=== PATIENT | female | born 1955 | race Caucasian/White ===

== ENCOUNTER 2016-10-06 16:04 | Outpatient (CLI) | payer MEDICARE | END 2016-10-06 16:05 | disposition home or self-care (01) | DX: E21.3 Hyperparathyroidism, unspecified (principal) ==

== ENCOUNTER 2017-02-26 10:44 | Outpatient (CLI) | payer MEDICARE ==
--- NOTE | 2017-02-27 17:54 | Mammography Report ---
DIGITAL SCREENING MAMMOGRAM: 02/26/2017 CLINICAL INDICATION: A 61-year-old with history of benign left breast biopsy for screening. COMPARISON: 06/2012, 08/2008, 11/2007. TECHNIQUE: Routine CC and MLO projections were obtained of the breasts. The breasts again demonstrate heterogeneously dense fibroglandular parenchyma bilaterally. Punctate, typically benign calcifications are present. In the right inner posterior breast, there is a possib le developing density. Further evaluation with spot compression views on possible ultrasound is greg mmended. No mammographically suspicious findings are appreciated in the left breast. IMPRESSION: INCOMPLETE EXAMINATION. RECOMMENDATION: ADDITIONAL EVALUATION OF THE RIGHT BREAST ABOVE. BIRADS CATEGORY: 0, INCOMPLETE. STANDARD QUALIFYING STATEMENTS 1. This examination was reviewed with the aid of Computed-Aided Detection (CAD). 2. A negative or benign imaging report should not delay biopsy if clinically suspicious findings are present. Consider surgical consultation if warranted. More than 5% of cancers are not identified b y imaging. 3. Dense breasts may obscure an underlying neoplasm. JOB #: [id number] EXT JOB #:[id number]
== END 2017-02-26 10:45 | disposition home or self-care (01) ==
LOC: DI.S 10:44
PROVIDERS: ATTEND Internal Medicine
DX: Z12.31 Encounter for screening mammogram for malignant neoplasm of breast (principal); R92.8 Other abnormal and inconclusive findings on diagnostic imaging of breast
CPT/HCPCS: 77067

== ENCOUNTER 2017-03-19 11:15 | Outpatient (CLI) | payer MEDICARE ==
--- NOTE | 2017-03-19 13:03 | Mammography Report ---
DIGITAL DIAGNOSTIC RIGHT MAMMOGRAM: 03/19/2017 CLINICAL INDICATION: Possible developing density. TECHNIQUE: Right true lateral and spot compression views. COMPARISON: 02/26/2017, 06/24/2012, 08/11/2008, 12/09/2007, 11/14/2007 FINDINGS: The right breast again demonstrates heterogeneously dense fibroglandular parenchyma. The density in question, in the right inner posterior breast dissipates evenly on additional compression. No underlying mas lesion or region of architectural distortion is appreciated. IMPRESSION: NEGATIVE EXAMINATION. RECOMMENDATION: Routine annual screening unless otherwise clinically indicated. BIRADS CATEGORY 1 - NEGATIVE. STANDARD QUALIFYING STATEMENTS 1. This examination was reviewed with the aid of Computer-Aided Detection (CAD). 2. A negative or benign imaging report should not delay biopsy if clinically suspicious findings are present. Consider surgical consultation if warranted. More than 5% of cancers are not identified by i maging. 3. Dense breasts may obscure an underlying neoplasm. JOB #: [id number] EXT JOB #:[id number]
== END 2017-03-19 11:16 | disposition home or self-care (01) ==
LOC: DI 11:15
PROVIDERS: ATTEND Internal Medicine
DX: R92.2 Inconclusive mammogram (principal)

== ENCOUNTER 2018-12-05 10:20 | Outpatient (CLI) | payer MEDICARE | END 2018-12-05 10:21 | disposition critical access hospital (66) | LOC: EMS 10:20 | PROVIDERS: ATTEND Surgery | DX: R06.02 Shortness of breath (principal); R05 Cough; R50.9 Fever, unspecified | CPT/HCPCS: A0425; A0427 ==

== ENCOUNTER 2018-12-05 11:00 | Emergency (ER) | payer MEDICARE ==
[2018-12-05] MEDS ORDERED: IPRATROPIUM/ALBUTEROL 3 ML NEB INH STA ×2 (11:05→14:00)
--- NOTE | 2018-12-05 11:08 | ED Physician Documentation ---
PD HPI DYSPNEA - Stated complaint Stated Complaint: SOA - History obtained from History obtained from: Patient, EMS - History of Present Illness Timing - onset: How many days ago (3) Timing - onset during: Rest Timing - duration: Days (3) Timing - details: Gradual onset, Still present Inciting event(s): URI Improved by: Inhaler/neb Worsened by: Exertion, Coughing Associated symptoms: Cough, Wheezing Similar symptoms before: Diagnosis (COPD) Recently seen: Not recently seen - Additional information Additional information: 63-year-old female with history of COPD has developed a cough and congestion worse than her usual and she has had progression over the past 3 days. Today she was shortness of breath that she called the ambulance. They arrived to find her with a oxygen saturation in the mid 80s she was given a DuoNeb treatment her saturation came up with the addition of 4 L of nasal cannula oxygen. She is last had a course of prednisone about 6 weeks ago and she did not require a course of prednisone last year. She is now coughing up yellow phlegm and has a low-grade fever. Review of Systems Constitutional: reports: Fever, Myalgias, Fatigue Eyes: denies: Decreased vision Ears: denies: Ear pain Nose: reports: Rhinorrhea / runny nose, Congestion Throat: denies: Sore throat Cardiac: denies: Chest pain / pressure, Palpitations Respiratory: reports: Dyspnea, Cough, Wheezing GI: denies: Vomiting : denies: Dysuria PD PAST MEDICAL HISTORY - Past Medical History Cardiovascular: Hypertension Respiratory: Emphysema Endocrine/Autoimmune: None GI: Ulcers, Colon polyps : None HEENT: Chronic vision loss Psych: Depression, Anxiety Musculoskeletal: Chronic back pain Derm: None - Past Surgical History Past Surgical History: Yes General: Cholecystectomy, Appendectomy, Colonoscopy, EGD 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5 mg ORAL PRN 12/05/18 RX: predniSONE [Deltasone] 10 mg PO ONCE #26 tablet 12/05/18 - Allergies Allergies/Adverse Reactions: Allergies Allergy/AdvReac Type Severity Reaction Status Date / Time codeine Allergy Unknown Verified 12/05/18 11:08 morphine Allergy Unknown Verified 12/05/18 11:08 Sulfa (Sulfonamide Allergy Unknown Verified 12/05/18 11:08 Antibiotics) - Social History Does the pt smoke?: Yes Smoking Status: Current every day smoker Does the pt drink ETOH?: No Does the pt have substance abuse?: No PD ED PE NORMAL - Vitals Vital signs reviewed: Yes - General General: Alert and oriented X 3, Well developed/nourished, Other (tachypneic at rest) - HEENT HEENT: Atraumatic, PERRL, EOMI, Other (both TM's are minimally inflamed along the umbo) - Neck Neck: Supple, no meningeal sign, No bony TTP - Cardiac Cardiac: No murmur, Other (tachy to 110) - Respiratory Respiratory: Other (tachypneic at rest with scattered wheezes tight and rhonchi) - Abdomen Abdomen: Soft, Non tender - Back Back: No CVA TTP, No spinal TTP - Derm Derm: Normal color, Warm and dry, No rash - Extremities Extremities: No deformity, No edema - Neuro Neuro: Alert and oriented X 3, magnetic observer 2-12 intact, No motor deficit, No sensory deficit, Normal speech Eye Opening: Spontaneous Motor: Obeys Commands Verbal: Oriented GCS Score: 15 - Psych Psych: Normal mood, Normal affect Results - Vitals Vitals: Vital Signs - 24 hr 12/05/18 12/05/18 12/05/18 11:03 11:20 12:41 Temperature 37.5 C Heart Rate 118 H 115 H 107 H Respiratory 22 20 20 Rate Blood Pressure 141/83 H O2 Saturation 91 L 12/05/18 12/05/18 14:20 14:28 Temperature Heart Rate 107 H 108 H Respiratory 20 12 Rate Blood Pressure 133/114 H O2 Saturation 99 Oxygen O2 Source Room air Oxygen Flow Rate 4 - Labs Labs: Microbiology 12/05/18 12:40 Respiratory Culture - Preliminary Mouth Laboratory Tests 12/05/18 12/05/18 12/05/18 11:30 11:30 11:30 WBC 13.5 H RBC 4.32 Hgb 12.2 Hct 35.7 L MCV 82.6 MCH 28.2 MCHC 34.2 RDW 14.1 Plt Count 322 MPV 7.5 L Neut # (Auto) 12.1 H Lymph # (Auto) 0.5 L [place] # (Auto) 0.9 Eos # (Auto) 0.0 Baso # (Auto) 0.1 Absolute Nucleated RBC 0.00 Nucleated RBC % 0.0 Sodium 126 L Potassium 3.1 L Chloride 84 L Carbon Dioxide 28 Anion Gap 14.0 H BUN 7 Creatinine 0.6 Estimated GFR (MDRD) 102 Glucose 125 H Lactic Acid Calcium 8.9 Total Bilirubin 0.9 AST 17 ALT 10 Alkaline Phosphatase 82 Troponin I < 0.04 Total Protein 7.4 Albumin 3.6 Globulin 3.8 Albumin/Globulin Ratio 0.9 L Lipase 21 L 12/05/18 11:30 WBC RBC Hgb Hct MCV MCH MCHC RDW Plt Count MPV Neut # (Auto) Lymph # (Auto) [place] # (Auto) Eos # (Auto) Baso # (Auto) Absolute Nucleated RBC Nucleated RBC % Sodium Potassium Chloride Carbon Dioxide Anion Gap BUN Creatinine Estimated GFR (MDRD) Glucose Lactic Acid 0.9 Calcium Total Bilirubin AST ALT Alkaline Phosphatase Troponin I Total Protein Albumin Globulin Albumin/Globulin Ratio Lipase - Rads (name of study) chest Radiology: Prelim report reviewed (Impression: Hyperinflated lungs compatible with COPD.), EMP read indepedently (on my read I am concerned about extra density in the right base concerned for pneumonia. ), See rad report PD MEDICAL DECISION MAKING - ED course Complexity details: reviewed old records, reviewed results, re-evaluated patient, considered differential, d/w patient ED course: 63-year-old female with cough and sputum production with COPD has a worsening of her COPD and she arrives to the emergency department with bronchospasm and hy poxia. She response to treatment with intravenous Solu-Medrol DuoNeb albuterol and Rocephin. After 3 treatments in the emergency department the patient is able to be weaned off of oxygen and is sent home on a prednisone taper and Augmentin as well as albuterol. Departure - Departure Disposition: 01 Home, Self Care Clinical Impression: COPD exacerbation Condition: Stable Instructions: ED COPD Flare Follow-Up: AIDA SWEENEY MD [Physician No Access] - Prescriptions: RX: Albuterol Sulf [Ventolin Hfa Inhaler] 1 - 2 puffs INH Q4HR PRN #1 inhaler PRN Reason: Shortness Of Air/Wheezing Amox/Clav 875/125 [Augmentin] 1 each PO Q12H #20 tablet RX: predniSONE [Deltasone] 10 mg PO ONCE #26 tablet Discharge Date/Time: 12/05/18 15:20
[2018-12-05 11:35] LABS: BASOPHILS # (AUTO) 0.1 10^3/uL (0.0-0.1); BASOPHILS % (AUTO) 0.9 %; HGB - HEMOGLOBIN 12.2 g/dL (12.0-16.0); LYMPHOCYTES # (AUTO) 0.5 10^3/uL (1.5-3.5); LYMPHOCYTES % (AUTO) 3.5 %; MEAN CORPUSCULAR HEMOGLOBIN 28.2 pg (27.0-31.0); MEAN CORPUSCULAR HGB CONC 34.2 g/dL (32.0-36.0); MEAN CORPUSCULAR VOLUME 82.6 fL (81.0-99.0); MEAN PLATELET VOLUME 7.5 fL (7.9-10.8); MONOCYTES # (AUTO) 0.9 10^3/uL (0.0-1.0); MONOCYTES % (AUTO) 6.3 %; NEUTROPHILS # (AUTO) 12.1 10^3/uL (1.5-6.6); NEUTROPHILS % (AUTO) 89.3 %; PLT - PLATELET COUNT 322 10^3/uL (130-450); RED BLOOD COUNT 4.32 10^6/uL (4.20-5.40); RED CELL DISTRIBUTION WIDTH 14.1 % (12.0-15.0); WHITE BLOOD COUNT 13.5 x10^3/uL (4.8-10.8)
--- NOTE | 2018-12-05 11:46 | XRAY Report ---
Reason: chest pain Procedure Date: 12/05/2018 Accession Number: [id number] / [id number] Procedure: XR - Chest 1 View X-Ray CPT Code: 29014 FULL RESULT: EXAM: CHEST RADIOGRAPHY EXAM DATE: 12/05/2018 11:28 AM. CLINICAL HISTORY: Chest pain. COMPARISON: XR CHEST PA AND LAT 11/07/2012 8:18 AM. TECHNIQUE: 1 view. Brassiere artifact. FINDINGS: Lungs/Pleura: Hyperinflated lungs. No focal consolidation. Mediastinum: Atherosclerotic aortic calcification. Other: Bones appear osteopenic. IMPRESSION: Hyperinflated lungs compatible with COPD. RADIA
[2018-12-05 11:49] LABS: ALBUMIN 3.6 g/dL (3.2-5.5); ALBUMIN/GLOBULIN RATIO 0.9 (1.0-2.2); BILIRUBIN,TOTAL 0.9 mg/dL (0.2-1.0); CALCIUM 8.9 mg/dL (8.5-10.3); CREATININE 0.6 mg/dL (0.4-1.0); TOTAL PROTEIN 7.4 g/dL (6.7-8.2)
[2018-12-05] MEDS ORDERED: ALBUTEROL NEB 2.5 MG/3 ML INH STA (11:59)
[2018-12-05] MEDS ORDERED: SODIUM CHLORIDE 0.9% 1,000 ML IV ONE (11:59)
[2018-12-05] MEDS ORDERED: POTASSIUM BICARB 25 MEQ TABLET PO STA (11:59)
[2018-12-05] MEDS ORDERED: cefTRIAXone 1 GM in SODIUM CHLORIDE 0.9% MINIBAG 100 ML IV STA (11:59)
[2018-12-05 14:29] VITALS: BP 133/114
== END 2018-12-05 15:20 | disposition home or self-care (01) ==
LOC: EDUNIT# → ED 11:00
DX: J43.9 Emphysema, unspecified (principal); R09.02 Hypoxemia; I10 Essential (primary) hypertension; F17.200 Nicotine dependence, unspecified, uncomplicated
CPT/HCPCS: 36415; 71045; 80053; 83605; 83690; 84484; 85025; 87040; 87070; 87205; 94640; 96365; 99283; 99284

== ENCOUNTER 2019-08-18 19:43 | Outpatient (CLI) | payer MEDICARE | END 2019-08-18 19:44 | disposition EMS.NT | LOC: EMS 19:43 | PROVIDERS: ATTEND Surgery | DX: R52 Pain, unspecified (principal); R05 Cough; R50.9 Fever, unspecified ==

== ENCOUNTER 2020-07-05 09:53 | Outpatient (CLI) | payer MEDICARE ==
--- NOTE | 2020-07-05 12:58 | DEXA Report ---
PROCEDURE: Dexa Spine and/or Hip INDICATIONS: OSTEOPOROSIS TECHNIQUE: Dual energy x-ray absorptiometry (DXA) was performed on a [employer] System. Regions measur ed are the AP Spine, femoral neck, and if needed forearm. COMPARISON: None. FINDINGS: Lumbar Spine: Bone Mineral Density 0.940 g/cm/cm,T score -1.9, osteopenia. The L4-L5 levels where excluded from inclusion in bone mineral density calculation due to presence of metallic posterior fixation devices crossing from L4 through into L5. Left Hip: Bone Mineral Density 0.596 g/cm/cm,T score -3.3, osteoporosis Left Femoral Neck: Bone Mineral Density 0.646 g/cm/cm, T score -2.8, osteoporosis (T score greater or equal to -1.0: NORMAL) (T score from -1.1 to -2.4: OSTEOPENIA) (T score less than or equal to -2.5 to: OSTEOPOROSIS) Impression: Osteopenia is present at the lumbosacral spine and osteoporosis is present at the left hi p and left femoral neck. Patients with diagnosis of osteoporosis or osteopenia should have regular bone mineral density assess ment. For those eligible for Medicare, routine testing is allowed once every 2 years. Testing frequ ency can be increased for patients who have rapidly progressing disease or for those who are receivin g medical therapy to restore bone mass. Reviewed by: Sharad Aaron MD on 07/05/2020 12:57 PM PST Approved by: Sharad Aaron MD on 07/05/2020 12:57 PM PST Station ID: [id number]
== END 2020-07-05 09:54 | disposition home or self-care (01) ==
LOC: DI 09:53
PROVIDERS: ATTEND Internal Medicine
DX: M81.0 Age-related osteoporosis without current pathological fracture (principal)

== ENCOUNTER 2020-09-14 15:15 | Outpatient (CLI) | payer MEDICARE | END 2020-09-14 15:16 | disposition home or self-care (01) | LOC: COV 15:15 | PROVIDERS: ATTEND Family Medicine | DX: R06.02 Shortness of breath (principal); Z20.822 Contact with and (suspected) exposure to COVID-19 ==

== ENCOUNTER 2021-02-21 17:18 | Outpatient (CLI) | payer MEDICARE | END 2021-02-21 17:19 | disposition home or self-care (01) | LOC: COV 17:18 | PROVIDERS: ATTEND Internal Medicine Pulmonary Disease | DX: Z01.812 Encounter for preprocedural laboratory examination (principal); Z20.822 Contact with and (suspected) exposure to COVID-19 ==

== ENCOUNTER 2021-03-27 07:15 | Outpatient (CLI) | payer MEDICARE | END 2021-03-27 07:16 | disposition critical access hospital (66) | LOC: EMS 07:15 | DX: R10.30 Lower abdominal pain, unspecified (principal); R11.2 Nausea with vomiting, unspecified; R55 Syncope and collapse; K59.00 Constipation, unspecified | CPT/HCPCS: A0425; A0427 ==

== ENCOUNTER 2021-03-27 07:49 | Emergency (ER) | payer MEDICARE ==
--- NOTE | 2021-03-27 08:02 | ED Physician Documentation ---
PD HPI SYNCOPE - Stated complaint Stated Complaint: NEAR SYNCOPE - History obtained from History obtained from: Patient - History of Present Illness Witnessed: Unwitnessed Timing - onset: Today Duration: Seconds Preceding symptoms: Vision changes, Light headed, Generalized weakness Associated symptoms: Diaphoresis, Abdominal pain Contributing factors: Decreased PO intake, Just stood up, Other (Has been constipated and preparing to have bowel movement.) Injury occurred: Fell. No: Head injury, Neck injury, Bit tongue Similar symptoms before: Has not had sx before Recently seen: Other (The patient has had recent pulmonary consultation and has had bronchoscopy.) - Additional information Additional information: 65-year-old female with a history of COPD and chronic back pain has had an increase in her lower extremity pain and she has been taking anti-inflammatory as well as pain medication. She is finishing a steroid taper and is no longer on antibiotic. This morning she got up to go to the bathroom and she states that she felt well when she awoke and on the way to the bathroom she became diaphoretic and collapsed. She states that when she awoke she had pain in her abdomen consistent with cramping for needing a bowel movement. She was able to go to the bathroom and she was then transported the hospital by ambulance. Review of Systems Constitutional: reports: Fatigue, Sweats. denies: Fever Eyes: denies: Decreased vision Ears: denies: Ear pain Nose: denies: Rhinorrhea / runny nose, Congestion Throat: denies: Sore throat Cardiac: reports: Chest pain / pressure. denies: Palpitations, Pedal edema, Calf pain Respiratory: reports: Dyspnea, Cough, Wheezing GI: reports: Abdominal Pain, Constipation : denies: Dysuria, Frequency Skin: denies: Rash Musculoskeletal: denies: Neck pain, Back pain, Extremity pain Neurologic: reports: Generalized weakness, Syncope, LOC. 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 HEENT: Tonsil/Adenoidectomy - Present Medications Home Medications: Ambulatory Orders Medication Instructions Recorded Confirmed oxyCODONE [Roxicodone] 15 mg TID 11/30/14 03/03/15 Albuterol Sulf [Ventolin Hfa 1 - 2 puffs INH Q4HR PRN #1 inhaler 12/05/18 Inhaler] Albuterol Sulfate 12/05/18 Albuterol Sulfate [Albuterol 1 - 2 puffs INH Q4HR 12/05/18 12/05/18 Sulfate Hfa] Amox/Clav 875/125 [Augmentin] 1 each PO Q12H #20 tablet 12/05/18 Lorazepam [Ativan] 0.5 mg ORAL PRN 12/05/18 hydroCHLOROthiazide 1 tab ORAL DAILY 12/05/18 12/05/18 [Hydrochlorothiazide] lisinopriL [Lisinopril] 1 tab ORAL DAILY 12/05/18 12/05/18 predniSONE [Deltasone] 10 mg PO ONCE #26 tablet 12/05/18 - Allergies Allergies/Adverse Reactions: Allergies Allergy/AdvReac Type Severity Reaction Status Date / Time codeine Allergy Unknown Verified 03/27/21 08:03 morphine Allergy Unknown Verified 03/27/21 08:03 Sulfa (Sulfonamide Allergy Unknown Verified 03/27/21 08:03 Antibiotics) - Social History Does the pt smoke?: Yes Smoking Status: Current every day smoker Does the pt drink ETOH?: No Does the pt have substance abuse?: No - Immunizations Immunizations are current?: Yes PD ED PE NORMAL - Vitals Vital signs reviewed: Yes (normal ) - General General: Alert and oriented X 3, No acute distress, Well developed/nourished - HEENT HEENT: Atraumatic, PERRL, EOMI - Neck Neck: Supple, no meningeal sign, No bony TTP - Cardiac Cardiac: RRR, No murmur - Respiratory Respiratory: No respiratory distress, Other (Inspiratory and expiratory wheezes throughout) - Abdomen Abdomen: Soft, Non tender - Back Back: No CVA TTP, No spinal TTP - Derm Derm: Normal color, Warm and dry, No rash - Extremities Extremities: No deformity, No edema - Neuro Neuro: Alert and oriented X 3, 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, No motor deficit, No sensory deficit, Normal speech Eye Opening: Spontaneous Motor: Obeys Commands Verbal: Oriented GCS Score: 15 - Psych Psych: Normal mood, Normal affect Results - Vitals Vitals: Vital Signs - 24 hr 03/27/21 03/27/21 03/27/21 07:59 10:03 12:00 Temperature 36.6 C Heart Rate 86 83 86 Respiratory 14 16 17 Rate Blood Pressure 130/75 134/78 H 149/63 H O2 Saturation 100 99 95 Oxygen O2 Source Room air - EKG (time done) 0911 Rate: Rate (enter#) (87) Rhythm: LAE Compare to prior EKG: Old EKG unavailable Computer interpretation: Agree with computer - Labs Labs: Laboratory Tests 03/27/21 03/27/21 03/27/21 08:42 08:42 08:42 WBC 8.8 RBC 4.11 L Hgb 12.5 Hct 35.1 L MCV 85.4 MCH 30.4 MCHC 35.6 RDW 12.8 Plt Count 267 MPV 8.9 Neut # (Auto) 6.6 Lymph # (Auto) 1.2 L [place] # (Auto) 1.0 Eos # (Auto) 0.0 Baso # (Auto) 0.0 Absolute Nucleated RBC 0.00 Nucleated RBC % 0.0 Sodium 123 L Potassium 2.9 L Chloride 84 L Carbon Dioxide 28 Anion Gap 11.0 BUN 9 Creatinine 0.6 Estimated GFR (MDRD) 101 Glucose 107 H Lactic Acid Calcium 8.9 Total Bilirubin 1.6 H AST 28 ALT 24 Alkaline Phosphatase 47 Troponin I High Sens B-Natriuretic Peptide 36 Total Protein 6.7 Albumin 4.2 Globulin 2.5 Albumin/Globulin Ratio 1.7 Lipase 26 Urine Color Urine Clarity Urine pH Ur Specific [place] Urine Protein Urine Glucose (UA) Urine Ketones Urine Occult Blood Urine Nitrite Urine Bilirubin Urine Urobilinogen Ur Leukocyte Esterase Ur Microscopic Review Urine Culture Comments 03/27/21 03/27/21 03/27/21 08:42 08:42 11:12 WBC RBC Hgb Hct MCV MCH MCHC RDW Plt Count MPV Neut # (Auto) Lymph # (Auto) [place] # (Auto) Eos # (Auto) Baso # (Auto) Absolute Nucleated RBC Nucleated RBC % Sodium Potassium Chloride Carbon Dioxide Anion Gap BUN Creatinine Estimated GFR (MDRD) Glucose Lactic Acid 1.1 Calcium Total Bilirubin AST ALT Alkaline Phosphatase Troponin I High Sens 9.4 B-Natriuretic Peptide Total Protein Albumin Globulin Albumin/Globulin Ratio Lipase Urine Color YELLOW Urine Clarity CLEAR Urine pH 7.5 Ur Specific [place] 1.015 Urine Protein NEGATIVE Urine Glucose (UA) NEGATIVE Urine Ketones NEGATIVE Urine Occult Blood NEGATIVE Urine Nitrite NEGATIVE Urine Bilirubin NEGATIVE Urine Urobilinogen 0.2 (NORMAL) Ur Leukocyte Esterase NEGATIVE Ur Microscopic Review NOT INDICATED Urine Culture Comments NOT INDICATED - Rads (name of study) chest Radiology: Prelim report reviewed (Impression: Hyperexpanded lungs are seen, without an acute cardiopulmonary abnormality seen.), EMP read indepedently, See rad report Procedures - IVC sono (time) 0817 Bedside IVC sono: IVC measures (cm) (1.63), Euvolemia PD MEDICAL DECISION MAKING - ED course Complexity details: reviewed old records, reviewed results, re-evaluated patient, considered differential, d/w patient, d/w family ED course: 65-year-old female with history of COPD and chronic back pain has had a syncopal episode this morning on the way to the bathroom with a painful stimulus. We interrogated her inferior vena cava and found that she was not dehydrated she did have hyponatremia and hypokalemia and we provided a banana bag intravenously as well as potassium orally and intravenously. Patient feels well and is comfortable with going home with a diagnosis of vasovagal syncope. Departure - Departure Disposition: 01 Home, Self Care Clinical Impression: Hyponatremia, Vasovagal syncope, Hypokalemia Condition: Stable Instructions: ED Hyponatremia, ED Diet High Potassium, ED Syncope Vasovagal Follow-Up: [facility] [Provider Group]
[2021-03-27 08:48] LABS: BASOPHILS % (AUTO) 0.2 %; EOSINOPHILS % (AUTO) 0.2 %; HCT - HEMATOCRIT 35.1 % (37.0-47.0); HGB - HEMOGLOBIN 12.5 g/dL (12.0-16.0); LYMPHOCYTES # (AUTO) 1.2 10^3/uL (1.5-3.5); LYMPHOCYTES % (AUTO) 13.2 %; MEAN CORPUSCULAR HEMOGLOBIN 30.4 pg (27.0-31.0); MEAN CORPUSCULAR HGB CONC 35.6 g/dL (32.0-36.0); MEAN CORPUSCULAR VOLUME 85.4 fL (81.0-99.0); MEAN PLATELET VOLUME 8.9 fL (7.9-10.8); NEUTROPHILS # (AUTO) 6.6 10^3/uL (1.5-6.6); NEUTROPHILS % (AUTO) 75.2 %; PLT - PLATELET COUNT 267 10^3/uL (130-450); RED BLOOD COUNT 4.11 10^6/uL (4.20-5.40); RED CELL DISTRIBUTION WIDTH 12.8 % (12.0-15.0); WHITE BLOOD COUNT 8.8 x10^3/uL (4.8-10.8)
--- NOTE | 2021-03-27 08:59 | XRAY Report ---
PROCEDURE: Chest 1 View X-Ray INDICATIONS: chest pain TECHNIQUE: One view of the chest was acquired. COMPARISON: 12/05/2018 FINDINGS: Surgical changes and devices: None. Lungs and pleura: No pleural effusions or pneumothorax. Lungs are clear. Mediastinum: Mediastinal contours appear normal. Heart size is normal. , Hyperexpanded there is a hiatal hernia Bones and chest wall: No suspicious bony lesions. Overlying soft tissues appear unremarkable. IMPRESSION: Hyperexpanded lungs are seen, without an acute cardiopulmonary abnormality seen. Reviewed by: Kamar Huynh MD on 03/27/2021 7:58 AM [facility] Approved by: Kamar Huynh MD on 03/27/2021 7:58 AM [facility] Station ID: [id number]
[2021-03-27 09:05] LABS: ALBUMIN 4.2 g/dL (3.2-5.5); ALBUMIN/GLOBULIN RATIO 1.7 (1.0-2.2); BILIRUBIN,TOTAL 1.6 mg/dL (0.2-1.0); CALCIUM 8.9 mg/dL (8.5-10.3); CREATININE 0.6 mg/dL (0.4-1.0); POTASSIUM 2.9 mmol/L (3.5-5.0); TOTAL PROTEIN 6.7 g/dL (6.7-8.2)
[2021-03-27] MEDS ORDERED: FOLIC ACID INJ 1 MG, THIAMINE INJ 100 MG, MAGNESIUM SULFATE 2 GM, MULTIVITAMIN 10 ML in... IV STA ×5 (09:23)
[2021-03-27] MEDS ORDERED: POTASSIUM CHLORIDE 20 MEQ TABLET PO STA ×2 (09:24→10:58)
[2021-03-27] MEDS ORDERED: POTASSIUM CHLOR 10 MEQ/100 ML 10 MEQ/100 ML BAG IV ONE (09:24)
[2021-03-27 11:19] LABS: BILIRUBIN,URINE NEGATIVE (NEGATIVE); GLUCOSE, URINE (UA) NEGATIVE (NEGATIVE); KETONES,URINE (UA) NEGATIVE (NEGATIVE); LEUKOCYTE ESTERASE, URINE NEGATIVE (NEGATIVE); NITRITE,URINE NEGATIVE (NEGATIVE); OCCULT BLOOD,URINE NEGATIVE (NEGATIVE); PH,URINE 7.5 PH (5.0-7.5); PROTEIN,URINE NEGATIVE (NEGATIVE); UROBILINOGEN,URINE 0.2 (NORMAL) E.U./dL (NORMAL)
[2021-03-27 11:25] LABS: CLARITY,URINE CLEAR (CLEAR)
[2021-03-27 12:21] VITALS: BP 149/63
== END 2021-03-27 12:50 | disposition home or self-care (01) ==
LOC: EDUNIT# → ED 07:49
DX: R55 Syncope and collapse (principal); E87.1 Hypo-osmolality and hyponatremia; E87.6 Hypokalemia; J43.9 Emphysema, unspecified; F17.200 Nicotine dependence, unspecified, uncomplicated; F41.9 Anxiety disorder, unspecified; G89.29 Other chronic pain; M54.9 Dorsalgia, unspecified; H54.7 Unspecified visual loss
CPT/HCPCS: 36415; 71045; 80053; 81003; 83605; 83690; 83880; 84484; 85025; 87040; 93005; 96365; 96368; 99284; A9270; J3411; 81001; 87086

== ENCOUNTER 2021-05-01 10:21 | Outpatient (CLI) | payer MEDICARE | END 2021-05-01 10:22 | disposition critical access hospital (66) | LOC: EMS 10:21 | DX: R06.02 Shortness of breath (principal); R11.0 Nausea | CPT/HCPCS: A0425; A0427 ==

== ENCOUNTER 2021-05-01 11:00 | Emergency (ER) | payer MEDICARE ==
[2021-05-01 11:43] LABS: BASOPHILS % (AUTO) 0.7 %; EOSINOPHILS % (AUTO) 0.2 %; HCT - HEMATOCRIT 38.8 % (37.0-47.0); HGB - HEMOGLOBIN 13.5 g/dL (12.0-16.0); LYMPHOCYTES # (AUTO) 0.8 10^3/uL (1.5-3.5); LYMPHOCYTES % (AUTO) 18.5 %; MEAN CORPUSCULAR HEMOGLOBIN 30.3 pg (27.0-31.0); MEAN CORPUSCULAR HGB CONC 34.8 g/dL (32.0-36.0); MEAN CORPUSCULAR VOLUME 87.2 fL (81.0-99.0); MEAN PLATELET VOLUME 8.9 fL (7.9-10.8); MONOCYTES # (AUTO) 0.4 10^3/uL (0.0-1.0); MONOCYTES % (AUTO) 9.4 %; NEUTROPHILS # (AUTO) 3.1 10^3/uL (1.5-6.6); PLT - PLATELET COUNT 307 10^3/uL (130-450); RED BLOOD COUNT 4.45 10^6/uL (4.20-5.40); RED CELL DISTRIBUTION WIDTH 12.9 % (12.0-15.0); WHITE BLOOD COUNT 4.4 x10^3/uL (4.8-10.8)
[2021-05-01 11:57] LABS: ALBUMIN 4.5 g/dL (3.2-5.5); ALBUMIN/GLOBULIN RATIO 1.9 (1.0-2.2); BILIRUBIN,TOTAL 1.4 mg/dL (0.2-1.0); CALCIUM 9.7 mg/dL (8.5-10.3); CREATININE 0.6 mg/dL (0.4-1.0); POTASSIUM 3.3 mmol/L (3.5-5.0); TOTAL PROTEIN 6.9 g/dL (6.7-8.2)
--- NOTE | 2021-05-01 11:58 | XRAY Report ---
PROCEDURE: Chest 1 View X-Ray INDICATIONS: Chest pain TECHNIQUE: One view of the chest was acquired. COMPARISON: 03/27/2021, 12/05/2018 FINDINGS: Surgical changes and devices: None. Lungs and pleura: No pleural effusions or pneumothorax. Lungs are clear, yet hyperexpanded. Mediastinum: Mediastinal contours appear normal. Heart size is normal. Bones and chest wall: No suspicious bony lesions. Overlying soft tissues appear unremarkable. IMPRESSION: Portable chest within normal limits for age. Hyperexpanded lungs noted. Reviewed by: Kamar Huynh MD on 05/01/2021 10:56 AM [facility] Approved by: Kamar Huynh MD on 05/01/2021 10:56 AM [facility] Station ID: [id number]
[2021-05-01] MEDS ORDERED: IPRATROPIUM/ALBUTEROL 3 ML NEB INH STA (12:16)
[2021-05-01] MEDS ORDERED: ONDANSETRON 4 MG/2 ML VIAL IVP STA (12:16)
[2021-05-01] MEDS ORDERED: methylPREDNISolone SUCCINATE 125 MG/2 ML VIAL IVP STA (12:16)
--- NOTE | 2021-05-01 12:17 | ED Physician Documentation ---
PD HPI DYSPNEA - Stated complaint Stated Complaint: Nausea - Chief complaint Chief Complaint: Resp - History obtained from History obtained from: Patient - Additional information Additional information: 65-year-old woman with history of COPD, no history of heart problems became nauseous yesterday late morning and has had increased shortness of breath with nonproductive cough. She denies chest pain. She had trace pedal edema this morning which is now gone. No fevers. No sick contacts. 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 HEENT: Tonsil/Adenoidectomy - Present Medications Home Medications: Ambulatory Orders Medication Instructions Recorded Confirmed oxyCODONE [Roxicodone] 15 mg TID 11/30/14 05/01/21 Albuterol Sulf [Ventolin Hfa 1 - 2 puffs INH Q4HR PRN #1 inhaler 12/05/18 05/01/21 Inhaler] Albuterol Sulfate [Albuterol 1 - 2 puffs INH Q4HR 12/05/18 05/01/21 Sulfate Hfa] hydroCHLOROthiazide 1 tab ORAL DAILY 12/05/18 05/01/21 [Hydrochlorothiazide] lisinopriL [Lisinopril] 1 tab ORAL DAILY 12/05/18 05/01/21 Budesonide [Pulmicort] 0.5 mg INH DAILY 05/01/21 05/01/21 predniSONE [Deltasone] 20 mg PO [id number] #21 tab 05/01/21 - Allergies Allergies/Adverse Reactions: Allergies Allergy/AdvReac Type Severity Reaction Status Date / Time codeine Allergy Unknown Verified 03/27/21 08:03 morphine Allergy Unknown Verified 03/27/21 08:03 Sulfa (Sulfonamide Allergy Unknown Verified 03/27/21 08:03 Antibiotics) - Social History Does the pt smoke?: No Smoking Status: Former smoker Does the pt drink ETOH?: No Does the pt have substance abuse?: No - Immunizations Immunizations are current?: Yes PD ED PE NORMAL - Vitals Vital signs reviewed: Yes (In contrast to RN notes O2 saturation is not 2%, she is 95% on monitor) - General General: Alert and oriented X 3, Other (think) - HEENT HEENT: PERRL, EOMI - Neck Neck: Supple, no meningeal sign, No bony TTP - Cardiac Cardiac: RRR, No murmur - Respiratory Respiratory: No respiratory distress, Other (Mildly labored breathing with tach ypnea, speaking in full sentences though. Barrel chested consistent with COPD and expiratory wheezes throughout.) - Abdomen Abdomen: Non tender - Back Back: No CVA TTP, No spinal TTP - Derm Derm: Normal color, Warm and dry - Extremities Extremities: No edema, No calf tenderness / cord - Neuro Neuro: Alert and oriented X 3, Normal speech Results - Vitals Vitals: Vital Signs - 24 hr 05/01/21 05/01/21 05/01/21 11:05 11:23 12:31 Temperature 36.8 C Heart Rate 94 98 Respiratory 20 16 Rate Blood Pressure 150/95 H O2 Saturation 94 95 05/01/21 05/01/21 13:11 13:39 Temperature Heart Rate 99 102 H Respiratory 16 17 Rate Blood Pressure 150/91 H O2 Saturation 98 Oxygen O2 Source Room air Oxygen Flow Rate 2 - EKG (time done) 1135 Rate: Rate (enter#) (100) Rhythm: Sinus tachycardia [place]: Normal Intervals: Normal [place] QRS: Normal Ischemia: Normal ST segments - Labs Labs: Laboratory Tests 05/01/21 05/01/21 05/01/21 11:38 11:38 11:38 WBC 4.4 L RBC 4.45 Hgb 13.5 Hct 38.8 MCV 87.2 MCH 30.3 MCHC 34.8 RDW 12.9 Plt Count 307 MPV 8.9 Neut # (Auto) 3.1 Lymph # (Auto) 0.8 L [place] # (Auto) 0.4 Eos # (Auto) 0.0 Baso # (Auto) 0.0 Absolute Nucleated RBC 0.00 Nucleated RBC % 0.0 Sodium 133 L Potassium 3.3 L Chloride 92 L Carbon Dioxide 30 Anion Gap 11.0 BUN 12 Creatinine 0.6 Estimated GFR (MDRD) 101 Glucose 106 H Calcium 9.7 Total Bilirubin 1.4 H AST 27 ALT 23 Alkaline Phosphatase 53 Troponin I High Sens 11.9 Total Protein 6.9 Albumin 4.5 Globulin 2.4 Albumin/Globulin Ratio 1.9 Lipase 77 H - Rads (name of study) 1v cxr Radiology: EMP read contemporaneously (hyperinflation, NAD) PD MEDICAL DECISION MAKING - ED course ED course: 65-year-old woman presents with shortness of breath, exam, x-ray, and other diagnostics are consistent with COPD exacerbation. After a DuoNeb and IV Solu-Medrol she was still wheezy and a second neb was given prior to discharge. Departure - Departure Disposition: Home, Self Care Clinical Impression: COPD exacerbation Condition: Good Record reviewed to determine appropriate education?: Yes Instructions: ED COPD Flare Prescriptions: predniSONE [Deltasone] 20 mg PO [id number] #21 tab Comments: Fill the prescription for prednisone tomorrow, you had a dose in your IV for today. Return for new or worsening symptoms. Discharge Date/Time: 05/01/21 14:23
[2021-05-01] MEDS ORDERED: ALBUTEROL NEB 2.5 MG/3 ML INH STA (13:06)
[2021-05-01 13:43] VITALS: BP 150/91
== END 2021-05-01 14:23 | disposition home or self-care (01) ==
LOC: EDUNIT# → ED 11:00
DX: J44.1 Chronic obstructive pulmonary disease with (acute) exacerbation (principal); Z87.891 Personal history of nicotine dependence
CPT/HCPCS: 36415; 80053; 83690; 84484; 85025; 93005; 94640; 96374; 96375; 99284

== ENCOUNTER 2022-04-29 18:16 | Outpatient (CLI) | payer MEDICARE | END 2022-04-29 18:17 | disposition EMS.NT | LOC: EMS 18:16 | DX: U07.1 COVID-19 (principal) ==

== ENCOUNTER 2022-06-01 13:18 | Outpatient (CLI) | payer MEDICARE | END 2022-06-01 13:19 | disposition critical access hospital (66) | LOC: EMS 13:18 | DX: R06.02 Shortness of breath (principal); R06.2 Wheezing | CPT/HCPCS: A0425; A0429 ==

== ENCOUNTER 2022-06-01 13:35 | Emergency (ER) | payer MEDICARE ==
[2022-06-01] MEDS ORDERED: predniSONE 20 MG TABLET PO STA (14:00)
[2022-06-01] MEDS ORDERED: IPRATROPIUM/ALBUTEROL 3 ML NEB INH STA (14:00)
--- NOTE | 2022-06-01 14:13 | ED Physician Documentation ---
History of Present Illness - Stated complaint Stated Complaint: SOA - History obtained from History obtained from: Patient - History of Present Illness Timing: How many minutes ago (20) Pain level max: 0 Pain level now: 0 - Additonal information Additional information: Patient is a 67-year-old female who presents to the emergency department complaining of increased shortness of breath that started about 20 minutes prior to arrival. Has a history of COPD and asthma. She occasionally uses portable oxygen. She has a nebulizer machine but did not use it today. No fevers. No chills. She states she had COVID about 2 weeks ago but has tested negative since then. Has not been on steroids recently. She received a breathing treatment with EMS which helped. No hypoxia with EMS. Patient states that she is feeling better currently. Review of Systems Ten Systems: 10 systems reviewed and negative Constitutional: denies: Fever, Chills Nose: denies: Rhinorrhea / runny nose, Congestion GI: denies: Abdominal Pain, Vomiting, Diarrhea Skin: denies: Rash Musculoskeletal: denies: Neck pain, Back pain Neurologic: denies: Headache PD PAST MEDICAL HISTORY - Past Medical History Cardiovascular: Hypertension Respiratory: Emphysema Endocrine/Autoimmune: None GI: Ulcers, Colon polyps : None HEENT: Chronic vision loss Psych: Depression, Anxiety Musculoskeletal: Chronic back pain Derm: None - Past Surgical History Past Surgical History: Yes General: Cholecystectomy, Appendectomy, Colonoscopy, EGD 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 HEENT: Tonsil/Adenoidectomy - Present Medications Home Medications: Ambulatory Orders Medication Instructions Recorded Confirmed oxyCODONE [Roxicodone] 15 mg TID 11/30/14 05/01/21 Albuterol Sulf [Ventolin Hfa 1 - 2 puffs INH Q4HR PRN #1 inhaler 12/05/18 05/01/21 Inhaler] Albuterol Sulfate [Albuterol 1 - 2 puffs INH Q4HR 12/05/18 05/01/21 Sulfate Hfa] hydroCHLOROthiazide 1 tab ORAL DAILY 12/05/18 05/01/21 [Hydrochlorothiazide] lisinopriL [Lisinopril] 1 tab ORAL DAILY 12/05/18 05/01/21 Budesonide [Pulmicort] 0.5 mg INH DAILY 05/01/21 05/01/21 predniSONE [Deltasone] 20 mg PO [id number] #21 tab 05/01/21 predniSONE [Deltasone] 10 mg PO [id number] #42 tab 06/01/22 - Allergies Allergies/Adverse Reactions: Allergies Allergy/AdvReac Type Severity Reaction Status Date / Time codeine Allergy Unknown Verified 03/27/21 08:03 morphine Allergy Unknown Verified 03/27/21 08:03 Sulfa (Sulfonamide Allergy Unknown Verified 03/27/21 08:03 Antibiotics) - Social History Does the pt smoke?: No Smoking Status: Former smoker Does the pt drink ETOH?: No Does the pt have substance abuse?: No - Immunizations Immunizations are current?: Yes PD ED PE NORMAL - Vitals Vital signs reviewed: Yes - General General: Alert and oriented X 3, No acute distress - HEENT HEENT: Moist mucous membranes - Neck Neck: Supple, no meningeal sign - Cardiac Cardiac: RRR - Respiratory Respiratory: No respiratory distress, Other (Diffuse wheezing bilaterally, no respiratory distress.) - Abdomen Abdomen: Soft, Non tender, Non distended - Derm Derm: Warm and dry - Extremities Extremities: No edema - Neuro Neuro: Alert and oriented X 3 - Psych Psych: Normal mood, Normal affect Results - Vitals Vitals: Vital Signs - 24 hr 06/01/22 06/01/22 16:21 16:22 Heart Rate 99 78 Respiratory 18 19 Rate Blood Pressure 133/85 H O2 Saturation 98 Oxygen O2 Source Room air - Labs Labs: Laboratory Tests 06/01/22 06/01/22 13:54 13:54 WBC 10.4 RBC 4.48 Hgb 13.2 Hct 38.6 MCV 86.2 MCH 29.5 MCHC 34.2 RDW 13.8 Plt Count 309 MPV 9.9 Neut # (Auto) 7.9 H Lymph # (Auto) 1.5 [place] # (Auto) 0.9 Eos # (Auto) 0.1 Baso # (Auto) 0.0 Absolute Nucleated RBC 0.00 Nucleated RBC % 0.0 Sodium 130 L Potassium 3.2 L Chloride 89 L Carbon Dioxide 31 Anion Gap 10.0 BUN 13 Creatinine 0.7 Estimated GFR (MDRD) 84 L Glucose 109 H Calcium 9.5 - Rads (name of study) cxr Radiology: Final report received, EMP read contemporaneously, See rad report PD MEDICAL DECISION MAKING - ED course Complexity details: reviewed results, re-evaluated patient, considered differential, d/w patient, d/w family ED course: 67-year-old female presents to the emergency department what appears to be a COPD exacerbation. No evidence of pneumonia on chest x-ray. No hypoxia. No respiratory distress. Feels better after steroids and nebulizer treatment. She has nebulizers and inhalers at home. We will place her on a steroid taper and have her follow-up with her doctor. No indication for antibiotics. No sepsis. Patient counseled regarding signs and symptoms for which I believe and urgent re-evaluation would be necessary. Patient with good understanding of and agreement to plan and is comfortable going home at this time This document was made in part using voice recognition software. While efforts are made to proofread this document, sound alike and grammatical errors may occur. Departure - Departure Disposition: 01 Home, Self Care Clinical Impression: COPD with acute exacerbation Condition: Good Instructions: ED COPD Flare Follow-Up: your,doctor in 1 week [Other] Prescriptions: predniSONE [Deltasone] 10 mg PO [id number] #42 tab Comments: Your prescriptions were sent to [facility] in [place]. Take all steroids until gone. There is no evidence of pneumonia. Continue your inhalers as previously prescribed. Return if you worsen. Discharge Date/Time: 06/01/22 16:42
[2022-06-01 14:23] LABS: BASOPHILS % (AUTO) 0.4 %; EOSINOPHILS # (AUTO) 0.1 10^3/uL (0.0-0.7); HCT - HEMATOCRIT 38.6 % (37.0-47.0); HGB - HEMOGLOBIN 13.2 g/dL (12.0-16.0); LYMPHOCYTES # (AUTO) 1.5 10^3/uL (1.5-3.5); LYMPHOCYTES % (AUTO) 14.2 %; MEAN CORPUSCULAR HEMOGLOBIN 29.5 pg (27.0-31.0); MEAN CORPUSCULAR HGB CONC 34.2 g/dL (32.0-36.0); MEAN CORPUSCULAR VOLUME 86.2 fL (81.0-99.0); MEAN PLATELET VOLUME 9.9 fL (7.9-10.8); MONOCYTES # (AUTO) 0.9 10^3/uL (0.0-1.0); MONOCYTES % (AUTO) 8.7 %; NEUTROPHILS # (AUTO) 7.9 10^3/uL (1.5-6.6); NEUTROPHILS % (AUTO) 75.5 %; PLT - PLATELET COUNT 309 10^3/uL (130-450); RED BLOOD COUNT 4.48 10^6/uL (4.20-5.40); RED CELL DISTRIBUTION WIDTH 13.8 % (12.0-15.0); WHITE BLOOD COUNT 10.4 x10^3/uL (4.8-10.8)
[2022-06-01 14:29] LABS: CALCIUM 9.5 mg/dL (8.5-10.3); CREATININE 0.7 mg/dL (0.4-1.0); POTASSIUM 3.2 mmol/L (3.5-5.0)
--- NOTE | 2022-06-01 15:28 | XRAY Report ---
PROCEDURE: Chest 2 View X-Ray INDICATIONS: cough TECHNIQUE: PA and lateral views of the chest. COMPARISON: 05/01/2021. FINDINGS/IMPRESSION: 1. Hyperexpanded and hyperlucent lungs consistent with COPD and emphysema. 2. No acute airspace opacity demonstrated. 3. Normal cardiac, mediastinal, and hilar contours. 4. No pleural effusion or pneumothorax. 5. No significant change from prior study. Reviewed by: Fredi Leon MD on 06/01/2022 3:27 PM PDT Approved by: Fredi Leon MD on 06/01/2022 3:27 PM PDT Station ID: [id number]
[2022-06-01] MEDS ORDERED: ALBUTEROL NEB 2.5 MG/3 ML INH STA (16:06)
[2022-06-01 16:22] VITALS: BP 133/85
== END 2022-06-01 16:42 | disposition home or self-care (01) ==
LOC: EDUNIT# → ED 13:35
DX: J44.1 Chronic obstructive pulmonary disease with (acute) exacerbation (principal); I10 Essential (primary) hypertension; Z87.891 Personal history of nicotine dependence
CPT/HCPCS: 36415; 71046; 80048; 85025; 94640; 94664; 99283; 99284; J7512

== ENCOUNTER 2022-07-02 | Emergency (ER) | payer MEDICARE ==
--- NOTE | 2022-07-02 00:14 | ED Physician Documentation ---
History of Present Illness - Stated complaint Stated Complaint: GLF - Chief complaint Chief Complaint: Neuro - History obtained from History obtained from: Patient, EMS - History of Present Illness Timing: How many days ago (3) Pain level now: 2 Improved by: no ameliorating factors Worsened by: no exacerbating factors - Additonal information Additional information: KIERAA. EMS was called for fall tonight while she was sitting in a chair, nasal injury with epistaxis which resolved prior to EMS arrival. During evaluation, EMS received more information in that family notes patient fell 3 days ago and sine then has been c/o headache, has intermittent confusion , left-sided weakness. EMS also report they measured temperature of 100.7 and note tachycardia (120s). On my HPI, patient is AAOx3, answers quickly, accurately and appropriately. She does c/o posterior headache. She also c/o dyspnea. She denies focal weakness. She says she uses oxygen at home only intermittently/as needed. Review of Systems Constitutional: reports: Fever Cardiac: reports: Reviewed and negative Respiratory: reports: Dyspnea, Cough. denies: Hemoptysis GI: reports: Reviewed and negative Musculoskeletal: reports: Reviewed and negative Neurologic: reports: Confused (intermittently), Headache. 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 HEENT: Tonsil/Adenoidectomy - Present Medications Home Medications: Ambulatory Orders Medication Instructions Recorded Confirmed oxyCODONE [Roxicodone] 15 mg TID 11/30/14 05/01/21 Albuterol Sulf [Ventolin Hfa 1 - 2 puffs INH Q4HR PRN #1 inhaler 12/05/18 05/01/21 Inhaler] Albuterol Sulfate [Albuterol 1 - 2 puffs INH Q4HR 12/05/18 05/01/21 Sulfate Hfa] hydroCHLOROthiazide 1 tab ORAL DAILY 12/05/18 05/01/21 [Hydrochlorothiazide] lisinopriL [Lisinopril] 1 tab ORAL DAILY 12/05/18 05/01/21 Budesonide [Pulmicort] 0.5 mg INH DAILY 05/01/21 05/01/21 predniSONE [Deltasone] 20 mg PO [id number] #21 tab 05/01/21 predniSONE [Deltasone] 10 mg PO [id number] #42 tab 06/01/22 - Allergies Allergies/Adverse Reactions: Allergies Allergy/AdvReac Type Severity Reaction Status Date / Time codeine Allergy Unknown Verified 07/02/22 00:09 morphine Allergy Unknown Verified 07/02/22 00:09 Sulfa (Sulfonamide Allergy Unknown Verified 07/02/22 00:09 Antibiotics) - Social History Does the pt smoke?: No Smoking Status: Former smoker Does the pt drink ETOH?: No Does the pt have substance abuse?: No - Immunizations Immunizations are current?: Yes - POLST Patient has POLST: No PD ED PE NORMAL - Vitals Vital signs reviewed: Yes - General General: Alert and oriented X 3, No acute distress, Well developed/nourished - HEENT HEENT: Other (dry mucous membranes) - Neck Neck: Supple, no meningeal sign, No bony TTP - Respiratory Respiratory: No respiratory distress, Other (diminished breath sounds bilaterally, bilateral end expiratory wheezing) - Abdomen Abdomen: Normal bowel sounds, Soft, Non tender, Non distended - Back Back: No spinal TTP - Derm Derm: Normal color, Warm and dry - Extremities Extremities: No deformity, No tenderness to palpate, Normal ROM s pain, No edema - Neuro Neuro: Alert and oriented X 3, 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, No motor deficit, No sensory deficit, Normal speech Eye Opening: Spontaneous Motor: Obeys Commands Verbal: Oriented GCS Score: 15 PD ED PE EXPANDED - Cardiac Cardiac: Tachy, Regular Rhythm - Respiratory Respiratory: Decreased breath sounds Results - Vitals Vitals: Oxygen O2 Source Room air - EKG (time done) No standard instances Rate: Rate (enter#) (117) Rhythm: Sinus tachycardia [place]: Normal QRS: LVH Ischemia: Normal ST segments Other comments: Other comments (artifact ranges from mild to moderate in different leads) - Labs Labs: Laboratory Tests 07/02/22 07/02/22 07/02/22 00:08 00:08 00:08 WBC 12.7 H RBC 4.81 Hgb 14.1 Hct 40.6 MCV 84.4 MCH 29.3 MCHC 34.7 RDW 13.5 Plt Count 363 MPV 9.7 Neut # (Auto) 11.6 H Lymph # (Auto) 0.7 L [place] # (Auto) 0.4 Eos # (Auto) 0.0 Baso # (Auto) 0.0 Absolute Nucleated RBC 0.00 Nucleated RBC % 0.0 Sodium 131 L Potassium 3.3 L Chloride 92 L Carbon Dioxide 25 Anion Gap 14.0 H BUN 13 Creatinine 0.7 Estimated GFR (MDRD) 84 L Glucose 122 H Lactic Acid Calcium 9.3 Total Bilirubin 1.8 H AST 24 ALT 17 Alkaline Phosphatase 76 B-Natriuretic Peptide 48 Total Protein 7.6 Albumin 4.2 Globulin 3.4 Albumin/Globulin Ratio 1.2 Lipase 29 TSH Urine Color Urine Clarity Urine pH Ur Specific [place] Urine Protein Urine Glucose (UA) Urine Ketones Urine Occult Blood Urine Nitrite Urine Bilirubin Urine Urobilinogen Ur Leukocyte Esterase Urine RBC Urine WBC Ur Squamous Epith Cells Urine Bacteria Ur Microscopic Review Urine Culture Comments Nasal Adenovirus (PCR) Nasal B. parapertussis DNA (PCR) Nasal Coronavir 229E PCR Nasal Coronavir HKU1 PCR Nasal Coronavir NL63 PCR Nasal Coronavir OC43 PCR Nasal Enterovir/Rhinovir PCR Nasal Influenza B PCR Nasal Influenza A PCR Nasal Parainfluen 1 PCR Nasal Parainfluen 2 PCR Nasal Parainfluen 3 PCR Nasal Parainfluen 4 PCR Nasal RSV (PCR) Nasal B.pertussis DNA PCR Nasal C.pneumoniae (PCR) Joseph Human Metapneumo PCR Nasal M.pneumoniae (PCR) Nasal SARS-CoV-2 (PCR) 07/02/22 07/02/22 07/02/22 00:08 00:15 00:37 WBC RBC Hgb Hct MCV MCH MCHC RDW Plt Count MPV Neut # (Auto) Lymph # (Auto) [place] # (Auto) Eos # (Auto) Baso # (Auto) Absolute Nucleated RBC Nucleated RBC % Sodium Potassium Chloride Carbon Dioxide Anion Gap BUN Creatinine Estimated GFR (MDRD) Glucose Lactic Acid Calcium Total Bilirubin AST ALT Alkaline Phosphatase B-Natriuretic Peptide Total Protein Albumin Globulin Albumin/Globulin Ratio Lipase TSH 0.26 L Urine Color YELLOW Urine Clarity HAZY Urine pH 7.5 Ur Specific [place] 1.020 Urine Protein TRACE Urine Glucose (UA) NEGATIVE Urine Ketones 40 H Urine Occult Blood SMALL H Urine Nitrite NEGATIVE Urine Bilirubin NEGATIVE Urine Urobilinogen 1 (NORMAL) Ur Leukocyte Esterase NEGATIVE Urine RBC 6-10 H Urine WBC 0-3 Ur Squamous Epith Cells FEW Squamous Urine Bacteria Few Ur Microscopic Review INDICATED Urine Culture Comments NOT INDICATED Nasal Adenovirus (PCR) NOT DETECTED Nasal B. parapertussis DNA (PCR) NOT DETECTED Nasal Coronavir 229E PCR NOT DETECTED Nasal Coronavir HKU1 PCR NOT DETECTED Nasal Coronavir NL63 PCR NOT DETECTED Nasal Coronavir OC43 PCR NOT DETECTED Nasal Enterovir/Rhinovir PCR NOT DETECTED Nasal Influenza B PCR NOT DETECTED Nasal Influenza A PCR NOT DETECTED Nasal Parainfluen 1 PCR NOT DETECTED Nasal Parainfluen 2 PCR NOT DETECTED Nasal Parainfluen 3 PCR NOT DETECTED Nasal Parainfluen 4 PCR NOT DETECTED Nasal RSV (PCR) NOT DETECTED Nasal B.pertussis DNA PCR NOT DETECTED Nasal C.pneumoniae (PCR) NOT DETECTED Joseph Human Metapneumo PCR NOT DETECTED Nasal M.pneumoniae (PCR) NOT DETECTED Nasal SARS-CoV-2 (PCR) NOT DETECTED 07/02/22 00:40 WBC RBC Hgb Hct MCV MCH MCHC RDW Plt Count MPV Neut # (Auto) Lymph # (Auto) [place] # (Auto) Eos # (Auto) Baso # (Auto) Absolute Nucleated RBC Nucleated RBC % Sodium Potassium Chloride Carbon Dioxide Anion Gap BUN Creatinine Estimated GFR (MDRD) Glucose Lactic Acid 1.1 Calcium Total Bilirubin AST ALT Alkaline Phosphatase B-Natriuretic Peptide Total Protein Albumin Globulin Albumin/Globulin Ratio Lipase TSH Urine Color Urine Clarity Urine pH Ur Specific [place] Urine Protein Urine Glucose (UA) Urine Ketones Urine Occult Blood Urine Nitrite Urine Bilirubin Urine Urobilinogen Ur Leukocyte Esterase Urine RBC Urine WBC Ur Squamous Epith Cells Urine Bacteria Ur Microscopic Review Urine Culture Comments Nasal Adenovirus (PCR) Nasal B. parapertussis DNA (PCR) Nasal Coronavir 229E PCR Nasal Coronavir HKU1 PCR Nasal Coronavir NL63 PCR Nasal Coronavir OC43 PCR Nasal Enterovir/Rhinovir PCR Nasal Influenza B PCR Nasal Influenza A PCR Nasal Parainfluen 1 PCR Nasal Parainfluen 2 PCR Nasal Parainfluen 3 PCR Nasal Parainfluen 4 PCR Nasal RSV (PCR) Nasal B.pertussis DNA PCR Nasal C.pneumoniae (PCR) Joseph Human Metapneumo PCR Nasal M.pneumoniae (PCR) Nasal SARS-CoV-2 (PCR) - Rads (name of study) CTH with and without IV contrast Radiology: Prelim report reviewed CTA neck Radiology: Prelim report reviewed, See rad report chest xray Radiology: Prelim report reviewed, See rad report PD MEDICAL DECISION MAKING - ED course Complexity details: reviewed old records, reviewed results, re-evaluated patient, considered differential, d/w patient, d/w family ED course: found to have moderate/large right frontal hemorrhagic infarct with effacement of the right lateral ventricle and approximately 3 mm [id number] midline shift. Case d/[place]. [place] [facility] [place] transfer ED to ED. Results and diagnosis d/w patient and family. Patient says she would be agreeable to procedures including neurosurgical procedures. Departure - Departure Disposition: 02 Transfer Acute Care Hosp Clinical Impression: Intraparenchymal hemorrhage of brain Condition: Serious Discharge Date/Time: 07/02/22 03:05
[2022-07-02] MEDS ORDERED: SODIUM CHLORIDE 0.9% 1,000 ML IV STA (00:28)
[2022-07-02] MEDS ORDERED: iohexoL-300 100 ML VIAL ONE (00:30)
[2022-07-02 00:33] LABS: BASOPHILS % (AUTO) 0.2 %; EOSINOPHILS % (AUTO) 0.1 %; HCT - HEMATOCRIT 40.6 % (37.0-47.0); HGB - HEMOGLOBIN 14.1 g/dL (12.0-16.0); LYMPHOCYTES # (AUTO) 0.7 10^3/uL (1.5-3.5); LYMPHOCYTES % (AUTO) 5.2 %; MEAN CORPUSCULAR HEMOGLOBIN 29.3 pg (27.0-31.0); MEAN CORPUSCULAR HGB CONC 34.7 g/dL (32.0-36.0); MEAN CORPUSCULAR VOLUME 84.4 fL (81.0-99.0); MEAN PLATELET VOLUME 9.7 fL (7.9-10.8); MONOCYTES # (AUTO) 0.4 10^3/uL (0.0-1.0); NEUTROPHILS # (AUTO) 11.6 10^3/uL (1.5-6.6); NEUTROPHILS % (AUTO) 91.3 %; PLT - PLATELET COUNT 363 10^3/uL (130-450); RED BLOOD COUNT 4.81 10^6/uL (4.20-5.40); RED CELL DISTRIBUTION WIDTH 13.5 % (12.0-15.0); WHITE BLOOD COUNT 12.7 x10^3/uL (4.8-10.8)
[2022-07-02 00:38] LABS: BILIRUBIN,URINE NEGATIVE (NEGATIVE); GLUCOSE, URINE (UA) NEGATIVE (NEGATIVE); KETONES,URINE (UA) 40 mg/dL (NEGATIVE); LEUKOCYTE ESTERASE, URINE NEGATIVE (NEGATIVE); NITRITE,URINE NEGATIVE (NEGATIVE); OCCULT BLOOD,URINE SMALL (NEGATIVE); PH,URINE 7.5 PH (5.0-7.5); PROTEIN,URINE TRACE mg/dL (NEGATIVE); UROBILINOGEN,URINE 1 (NORMAL) E.U./dL (NORMAL)
[2022-07-02 00:39] LABS: CLARITY,URINE HAZY (CLEAR)
[2022-07-02 00:43] LABS: ALBUMIN 4.2 g/dL (3.2-5.5); ALBUMIN/GLOBULIN RATIO 1.2 (1.0-2.2); BILIRUBIN,TOTAL 1.8 mg/dL (0.2-1.0); CALCIUM 9.3 mg/dL (8.5-10.3); CREATININE 0.7 mg/dL (0.4-1.0); POTASSIUM 3.3 mmol/L (3.5-5.0); TOTAL PROTEIN 7.6 g/dL (6.7-8.2)
[2022-07-02 00:54] LABS: BACTERIA,URINE Few /HPF (None Seen); SQUAMOUS EPITHELIAL CELL,UR FEW Squamous (<= Few); WBC,URINE 0-3 /HPF (0-5)
[2022-07-02 01:46] LABS: B. PARAPERTUSSIS- RESP PCR PAN NOT DETECTED; B. PERTUSSIS- RESP PCR PANEL NOT DETECTED; C. PNEUMONIAE- RESP PCR PANEL NOT DETECTED; CORONAVIRUS 229E-RESP PCR NOT DETECTED; CORONAVIRUS HKU1-RESP PCR NOT DETECTED; CORONAVIRUS NL63-RESP PCR NOT DETECTED; CORONAVIRUS OC43-RESP PCR NOT DETECTED; HUMAN METAPNEUMOVIRUS NOT DETECTED; INFLUENZA A- RESP PCR PANEL NOT DETECTED; INFLUENZA B - RESP PCR PANEL NOT DETECTED; M. PNEUMONIAE- RESP PCR PANEL NOT DETECTED; PARAINFLUENZA VIRUS 1 NOT DETECTED; PARAINFLUENZA VIRUS 2 NOT DETECTED; PARAINFLUENZA VIRUS 3 NOT DETECTED; PARAINFLUENZA VIRUS 4 NOT DETECTED; RHINOVIRUS/ENTEROVIRUS NOT DETECTED; RSV- RESP PCR PANEL NOT DETECTED; SARS-CoV-2 -RESP PCR PANEL NOT DETECTED
[2022-07-02] MEDS ORDERED: iohexoL-300 100 ML VIAL IVP ONE (02:00)
--- NOTE | 2022-07-02 02:04 | CT Report ---
PROCEDURE: ANGIO HEAD W/WO INDICATIONS: new onset left sided weakness CONTRAST: 100 ML OMNI 300 TECHNIQUE: Precontrast 4.5 mm thick angled axial sections acquired from the foramen magnum to the vertex. Afte r the administration of intravenous contrast, 1 mm thick sections acquired through the [place] is. Postcontrast 4.5 mm thick sections then re-acquired from the foramen magnum to the vertex. 3-di mensional owdxbcx-eoytaiywx-suyuxpfltc (MIP) and/or volume rendering reformats were acquired of the c entral intracranial vasculature. For radiation dose reduction, the following was used: automated ex posure control, adjustment of mA and/or kV according to patient size. COMPARISON: Noncontrast head CT 03/03/2015. FINDINGS: Image quality: Excellent. Anterior circulation: Intracranial internal carotid arteries are normal in size and flow. The flow within the paired anterior cerebral arteries is normal and symmetric. The flow within the middle cer ebral arteries is normal and symmetric. The anterior communicating artery is seen. Bilateral posteri or communicating arteries are present. No aneurysms are seen. Posterior circulation: Visualized portions of the vertebral arteries demonstrate normal caliber, and join to form a normal appearing basilar artery. Flow within the posterior cerebral arteries is norm al and symmetric. No aneurysms are seen. CSF spaces: There is right to leftward midline shift with effacement of the right lateral ventricle. Right to leftward shift measures approximately 3 mm. Basal cisterns are patent. No extra-axial fluid collections. Brain: No midline shift. Right frontal hyperdense blood products measuring 3.9 cm, (01/24). This is c onsistent with hemorrhagic infarct. There is surrounding vasogenic edema. Skull and face: Calvarium and facial bones appear intact, without suspicious lesions. Sinuses: Visualized sinuses and mastoids are clear. IMPRESSION: 1. Moderate to large sized right frontal hemorrhagic infarct. 2. There is effacement of the right lateral ventricle. There is approximately 3 mm of right to leftwa rd midline shift. Preliminary results were communicated to Dr. Nesbitt at 07/02/2022 1:54 AM PST. Reviewed by: Lane Busch MD on 07/02/2022 2:03 AM PST Approved by: Lane Busch MD on 07/02/2022 2:03 AM PST Station ID: [id number]
--- NOTE | 2022-07-02 02:11 | CT Report ---
PROCEDURE: ANGIO NECK W INDICATIONS: left sided weakness, new onset CONTRAST: 100 ML OMNI 300 TECHNIQUE: After the administration of intravenous contrast, 1.5 mm axial sections acquired from the aortic arch to the [place]. Coronal 3-D maximum intensity projection (MIP) and/or volume rendering ref ormats were then performed. For radiation dose reduction, the following was used: automated exposur e control, adjustment of mA and/or kV according to patient size. COMPARISON: Same day CTA head. FINDINGS: Image quality: Excellent. Carotid system: The great vessels demonstrate a conventional anatomy as they arise from the aortic a rch. The origins of the common carotid arteries appear patent. The common carotid arteries demonstr ate normal calibers and courses. There is 50-69% stenosis of the left carotid bulb, (5/83). There is less than 50% stenosis of the right carotid bulb. There is extensive calcified plaque bilaterally. Posterior circulation: The origins of the vertebral arteries appear patent. The more superior porti ons of the vertebral arteries demonstrate normal course and caliber. They join to form a normal appe aring basilar artery. Bilateral posterior communicating arteries are seen. Soft tissues: Visualized neck soft tissues demonstrate no suspicious abnormalities. Right thyroid no dule measuring 0.5 cm. Bones: No suspicious bony lesions. Moderate degenerative change in the cervical spine. Visualized c ervical spine appears normally aligned. IMPRESSION: No large vessel occlusion. 50-69% stenosis at the left ICA. Less than 50% stenosis of the right ICA. Consider follow-up carotid Doppler ultrasound for further evaluation. The estimate of stenosis included in the report of the imaging study was calculated using the NASCET method Reviewed by: Lane Busch MD on 07/02/2022 2:10 AM PST Approved by: Lane Busch MD on 07/02/2022 2:10 AM PST Station ID: [id number]
--- NOTE | 2022-07-02 02:12 | XRAY Report ---
PROCEDURE: Chest 2 View X-Ray INDICATIONS: dyspnea, cough, wheezing TECHNIQUE: 2 views of the chest were acquired. COMPARISON: CXR 06/01/2022. FINDINGS: Surgical changes and devices: None. Lungs and pleura: No pleural effusions or pneumothorax. Lungs appear clear. Large lung volumes. Mediastinum: Mediastinal contours are normal. Heart size is normal. Bones and chest wall: No suspicious bony abnormalities. Soft tissues appear unremarkable. IMPRESSION: No acute cardiopulmonary abnormality. Reviewed by: Lane Busch MD on 07/02/2022 2:11 AM PST Approved by: Lane Busch MD on 07/02/2022 2:11 AM PST Station ID: [id number]
[2022-07-02 03:05] VITALS: BP 187/113
[2022-07-02] MEDS ORDERED: NICARDIPINE HCL 25 MG in SODIUM CHLORIDE 0.9% 240 ML IV STA (03:08)
== END 2022-07-02 03:05 | disposition short-term general hospital (02) ==
LOC: EDUNIT# → ED
DX: S06.30AA Unspecified focal traumatic brain injury with loss of consciousness status unknown, initial encounter (principal); W19.XXXA Unspecified fall, initial encounter; J43.9 Emphysema, unspecified; Z99.81 Dependence on supplemental oxygen; I10 Essential (primary) hypertension; R00.0 Tachycardia, unspecified; F32.A Depression, unspecified; F41.9 Anxiety disorder, unspecified; Z91.81 History of falling; Z20.822 Contact with and (suspected) exposure to COVID-19
CPT/HCPCS: 36415; 70496; 70498; 71046; 80053; 81001; 83605; 83690; 83880; 84443; 85025; 87633; 93005; 99284; 99285; Q9967; 81003; 87086

== ENCOUNTER 2022-07-02 04:10 | Outpatient (CLI) | payer MEDICARE | END 2022-07-02 23:59 | disposition short-term general hospital (02) | LOC: EMS 04:10 | PROVIDERS: ATTEND Emergency Medicine | DX: S06.9X0A Unspecified intracranial injury without loss of consciousness, initial encounter (principal); W19.XXXA Unspecified fall, initial encounter | CPT/HCPCS: A0425; A0426 ==

== ENCOUNTER 2022-07-25 21:43 | Outpatient (CLI) | payer MEDICARE | END 2022-07-25 21:44 | disposition critical access hospital (66) | LOC: EMS 21:43 | DX: R06.02 Shortness of breath (principal); R05.9 Cough, unspecified; R09.3 Abnormal sputum; R51.9 Headache, unspecified | CPT/HCPCS: A0425; A0429 ==

== ENCOUNTER 2022-07-25 22:25 | Inpatient (IN) | payer MEDICARE ==
[2022-07-25] MEDS ORDERED: IBUPROFEN 600 MG TABLET PO STA (22:36)
[2022-07-25] MEDS ORDERED: methylPREDNISolone SUCCINATE 125 MG/2 ML VIAL IVP STA (22:36)
[2022-07-25] MEDS: IPRATROPIUM/ALBUTEROL 3 ML NEB INH STA (22:48)
[2022-07-25 22:52] LABS: BASOPHILS % (AUTO) 0.2 %; EOSINOPHILS % (AUTO) 0.1 %; HGB - HEMOGLOBIN 13.1 g/dL (12.0-16.0); LYMPHOCYTES # (AUTO) 0.3 10^3/uL (1.5-3.5); LYMPHOCYTES % (AUTO) 1.8 %; MEAN CORPUSCULAR HEMOGLOBIN 28.7 pg (27.0-31.0); MEAN CORPUSCULAR VOLUME 89.9 fL (81.0-99.0); MEAN PLATELET VOLUME 9.4 fL (7.9-10.8); MONOCYTES # (AUTO) 0.7 10^3/uL (0.0-1.0); MONOCYTES % (AUTO) 5.2 %; NEUTROPHILS # (AUTO) 12.6 10^3/uL (1.5-6.6); NEUTROPHILS % (AUTO) 92.6 %; PLT - PLATELET COUNT 315 10^3/uL (130-450); RED BLOOD COUNT 4.56 10^6/uL (4.20-5.40); RED CELL DISTRIBUTION WIDTH 13.8 % (12.0-15.0); WHITE BLOOD COUNT 13.6 x10^3/uL (4.8-10.8)
[2022-07-25 22:54] LABS: VBG PH 7.389 (7.31-7.41)
[2022-07-25 22:55] LABS: VBG BASE EXCESS 1.9 mmol/L (-2 - +2); VBG HCO3 27.5 mmol/L (23-28); VBG OXYGEN SATURATION 68.2 % (60-80); VBG PCO2 46.6 mmHg (41-51); VBG PO2 33.6 mmHg (25-47); VBG TOTAL CO2 28.9 mmol/L (24-29)
[2022-07-25 23:04] LABS: ALBUMIN 4.1 g/dL (3.2-5.5); ALBUMIN/GLOBULIN RATIO 1.1 (1.0-2.2); BILIRUBIN,TOTAL 1.1 mg/dL (0.2-1.0); CALCIUM 9.5 mg/dL (8.5-10.3); CREATININE 0.7 mg/dL (0.4-1.0); POTASSIUM 3.9 mmol/L (3.5-5.0); TOTAL PROTEIN 7.8 g/dL (6.7-8.2)
--- NOTE | 2022-07-25 23:08 | XRAY Report ---
PROCEDURE: Chest 1 View X-Ray INDICATIONS: Chest Pain TECHNIQUE: One view of the chest was acquired. COMPARISON: Chest x-ray 07/02/2022. FINDINGS: Surgical changes and devices: None. Lungs and pleura: No pleural effusions or pneumothorax. There is hyperinflation of the lungs with f lattening of the hemidiaphragms compatible with COPD. No acute consolidation. Mediastinum: Mediastinal contours appear normal. Heart size is normal. Bones and chest wall: No suspicious bony lesions. Overlying soft tissues appear unremarkable. IMPRESSION: 1. No acute cardiopulmonary disease. 2. Findings compatible with COPD redemonstrated. Reviewed by: Chadwick Lombardo MD on 07/25/2022 11:07 PM [facility] Approved by: Chadwick Lombardo MD on 07/25/2022 11:07 PM [facility] Station ID: [id number]
[2022-07-25] MEDS ORDERED: SODIUM CHLORIDE 0.9% 500 ML IV STA (23:16)
[2022-07-25] MEDS ORDERED: ALBUTEROL NEB 2.5 MG/3 ML INH STA (23:17)
[2022-07-25 23:40] LABS: B. PARAPERTUSSIS- RESP PCR PAN NOT DETECTED; B. PERTUSSIS- RESP PCR PANEL NOT DETECTED; C. PNEUMONIAE- RESP PCR PANEL NOT DETECTED; CORONAVIRUS 229E-RESP PCR NOT DETECTED; CORONAVIRUS HKU1-RESP PCR NOT DETECTED; CORONAVIRUS NL63-RESP PCR NOT DETECTED; CORONAVIRUS OC43-RESP PCR NOT DETECTED; HUMAN METAPNEUMOVIRUS NOT DETECTED; INFLUENZA A H3- RESP PCR PANEL DETECTED; INFLUENZA A- RESP PCR PANEL NOT DETECTED; INFLUENZA B - RESP PCR PANEL NOT DETECTED; M. PNEUMONIAE- RESP PCR PANEL NOT DETECTED; PARAINFLUENZA VIRUS 1 NOT DETECTED; PARAINFLUENZA VIRUS 2 NOT DETECTED; PARAINFLUENZA VIRUS 3 NOT DETECTED; PARAINFLUENZA VIRUS 4 NOT DETECTED; RHINOVIRUS/ENTEROVIRUS NOT DETECTED; RSV- RESP PCR PANEL NOT DETECTED; SARS-CoV-2 -RESP PCR PANEL NOT DETECTED
--- NOTE | 2022-07-26 00:31 | ED Physician Documentation ---
History of Present Illness - Stated complaint Stated Complaint: SOA - Chief complaint Chief Complaint: Resp - History obtained from History obtained from: Patient, EMS - Additonal information Additional information: 67yF with pmh copd on home 2L o2 p/w SOA this evening. patient endorses feeling ill recently with +sick contacts (grandchildren). she was hypoxic on ems arrival with pulse ox in 80s improving s/p 1 duoneb. also received 300cc NS en route. +myalgia, chills, nonproductive cough. Review of Systems Constitutional: reports: Fever, Chills, Myalgias, Fatigue Nose: reports: Congestion Throat: reports: Sore throat PD PAST MEDICAL HISTORY - Past Medical History Past Medical History: Yes Cardiovascular: Hypertension Respiratory: Emphysema Endocrine/Autoimmune: None GI: Ulcers, Colon polyps : None HEENT: Chronic vision loss Psych: Depression, Anxiety Musculoskeletal: Chronic back pain Derm: None - Past Surgical History Past Surgical History: Yes General: Cholecystectomy, Appendectomy, Colonoscopy, EGD Ortho: Spine surgery /[employer]: Hysterectomy HEENT: Tonsil/Adenoidectomy - Present Medications Home Medications: Ambulatory Orders Medication Instructions Recorded Confirmed oxyCODONE [Roxicodone] 15 mg TID 11/30/14 05/01/21 Albuterol Sulf [Ventolin Hfa 1 - 2 puffs INH Q4HR PRN #1 inhaler 12/05/18 05/01/21 Inhaler] Albuterol Sulfate [Albuterol 1 - 2 puffs INH Q4HR 12/05/18 05/01/21 Sulfate Hfa] hydroCHLOROthiazide 1 tab ORAL DAILY 12/05/18 05/01/21 [Hydrochlorothiazide] lisinopriL [Lisinopril] 1 tab ORAL DAILY 12/05/18 05/01/21 Budesonide [Pulmicort] 0.5 mg INH DAILY 05/01/21 05/01/21 predniSONE [Deltasone] 20 mg PO [id number] #21 tab 05/01/21 predniSONE [Deltasone] 10 mg PO [id number] #42 tab 06/01/22 - Allergies Allergies/Adverse Reactions: Allergies Allergy/AdvReac Type Severity Reaction Status Date / Time codeine Allergy Unknown Verified 07/25/22 22:33 morphine Allergy Unknown Verified 07/25/22 22:33 Sulfa (Sulfonamide Allergy Unknown Verified 07/25/22 22:33 Antibiotics) - Social History Does the pt smoke?: No Smoking Status: Never smoker Does the pt drink ETOH?: No Does the pt have substance abuse?: No - Immunizations Immunizations are current?: Yes - POLST Patient has POLST: No PD ED PE NORMAL - Vitals Vital signs reviewed: Yes - General General: Alert and oriented X 3, Other (mild to moderate increased wob. elderly appearing) - HEENT HEENT: Atraumatic, PERRL, EOMI, Moist mucous membranes, Pharynx benign - Neck Neck: Supple, no meningeal sign - Cardiac Cardiac: Other (tachycardic rate, regular rhythm) - Respiratory Respiratory: Other (BL expiratory wheezing) - Abdomen Abdomen: Non tender, Non distended - Back Back: No CVA TTP - Derm Derm: Normal color, Warm and dry - Extremities Extremities: No deformity - Neuro Neuro: No motor deficit, No sensory deficit - Psych Psych: Normal mood, Normal affect Results - Vitals Vitals: Vital Signs - 24 hr 07/25/22 07/25/22 07/25/22 22:33 22:36 22:54 Temperature 36.7 C 36.7 C Heart Rate 130 H 130 H 130 H Respiratory 22 22 28 H Rate Blood Pressure 151/67 H 151/67 H O2 Saturation 92 92 If not protocol 4 5 : Oxygen Flow, liters/minute 07/25/22 23:29 Temperature Heart Rate 120 H Respiratory 20 Rate Blood Pressure O2 Saturation If not protocol 4 : Oxygen Flow, liters/minute Oxygen O2 Source Nasal cannula Oxygen Flow Rate 4 - Labs Labs: Laboratory Tests 07/25/22 07/25/22 07/25/22 22:44 22:44 22:44 WBC 13.6 H RBC 4.56 Hgb 13.1 Hct 41.0 MCV 89.9 MCH 28.7 MCHC 32.0 RDW 13.8 Plt Count 315 MPV 9.4 Neut # (Auto) 12.6 H Lymph # (Auto) 0.3 L [place] # (Auto) 0.7 Eos # (Auto) 0.0 Baso # (Auto) 0.0 Absolute Nucleated RBC 0.00 Nucleated RBC % 0.0 VBG pH 7.389 VBG pCO2 46.6 VBG pO2 33.6 VBG HCO3 27.5 VBG Total CO2 28.9 VBG O2 Saturation 68.2 VBG Base Excess 1.9 Sodium 136 Potassium 3.9 Chloride 99 L Carbon Dioxide 25 Anion Gap 12.0 BUN 14 Creatinine 0.7 Estimated GFR (MDRD) 84 L Glucose 131 H Calcium 9.5 Total Bilirubin 1.1 H AST 20 ALT 15 Alkaline Phosphatase 60 Total Protein 7.8 Albumin 4.1 Globulin 3.7 Albumin/Globulin Ratio 1.1 Lipase 34 Nasal Adenovirus (PCR) Nasal B. parapertussis DNA (PCR) Nasal Coronavir 229E PCR Nasal Coronavir HKU1 PCR Nasal Coronavir NL63 PCR Nasal Coronavir OC43 PCR Nasal Enterovir/Rhinovir PCR Nasal Influenza A H3 PCR Nasal Influenza B PCR Nasal Influenza A PCR Nasal Parainfluen 1 PCR Nasal Parainfluen 2 PCR Nasal Parainfluen 3 PCR Nasal Parainfluen 4 PCR Nasal RSV (PCR) Nasal B.pertussis DNA PCR Nasal C.pneumoniae (PCR) Joseph Human Metapneumo PCR Nasal M.pneumoniae (PCR) Nasal SARS-CoV-2 (PCR) 07/25/22 22:44 WBC RBC Hgb Hct MCV MCH MCHC RDW Plt Count MPV Neut # (Auto) Lymph # (Auto) [place] # (Auto) Eos # (Auto) Baso # (Auto) Absolute Nucleated RBC Nucleated RBC % VBG pH VBG pCO2 VBG pO2 VBG HCO3 VBG Total CO2 VBG O2 Saturation VBG Base Excess Sodium Potassium Chloride Carbon Dioxide Anion Gap BUN Creatinine Estimated GFR (MDRD) Glucose Calcium Total Bilirubin AST ALT Alkaline Phosphatase Total Protein Albumin Globulin Albumin/Globulin Ratio Lipase Nasal Adenovirus (PCR) NOT DETECTED Nasal B. parapertussis DNA (PCR) NOT DETECTED Nasal Coronavir 229E PCR NOT DETECTED Nasal Coronavir HKU1 PCR NOT DETECTED Nasal Coronavir NL63 PCR NOT DETECTED Nasal Coronavir OC43 PCR NOT DETECTED Nasal Enterovir/Rhinovir PCR NOT DETECTED Nasal Influenza A H3 PCR DETECTED A Nasal Influenza B PCR NOT DETECTED Nasal Influenza A PCR NOT DETECTED Nasal Parainfluen 1 PCR NOT DETECTED Nasal Parainfluen 2 PCR NOT DETECTED Nasal Parainfluen 3 PCR NOT DETECTED Nasal Parainfluen 4 PCR NOT DETECTED Nasal RSV (PCR) NOT DETECTED Nasal B.pertussis DNA PCR NOT DETECTED Nasal C.pneumoniae (PCR) NOT DETECTED Joseph Human Metapneumo PCR NOT DETECTED Nasal M.pneumoniae (PCR) NOT DETECTED Nasal SARS-CoV-2 (PCR) NOT DETECTED PD Medical Decision Making - ED course ED course: 67yF p/w influenza A and copd exacerbation. still tachycardic s/p antipyretics, 300cc ivf by ems, 500cc ivf here in ed. Breathing improved s/p 3 nebulizer treatments and solu-medrol. plan to admit for copd exacerbation in the setting of influenza virus. no beds available at [facility] therefore plan to endorse to incoming daytime ed md pending bed availability. Departure - Departure Clinical Impression: Influenza A Condition: Stable
[2022-07-26] MEDS ORDERED: guaiFENesin 600 MG TABLET PO STA (05:21)
[2022-07-26] MEDS ORDERED: SODIUM CHLORIDE 0.9% 1,000 ML IV STA (05:24)
[2022-07-26] MEDS ORDERED: ALBUTEROL NEB 2.5 MG/3 ML INH ONE (06:22)
[2022-07-26] MEDS ORDERED: ALBUTEROL NEB 2.5 MG/3 ML INH STA ×3 (06:25→14:18)
[2022-07-26] MEDS: IPRATROPIUM/ALBUTEROL 3 ML NEB INH STA (06:26)
[2022-07-26] MEDS ORDERED: predniSONE 20 MG TABLET PO STA (08:14)
--- NOTE | 2022-07-26 08:16 | ED Physician Documentation ---
ED Addendum - Addendum Addendum: 07/26/22 08:15 Patient signed out to me by overnight physician. As she is being treated for COPD exacerbation in the setting of influenza A. She was requiring increased oxygen From her baseline of 2 L. This morning she states that her breathing is starting to feel better. She did receive IV Solu-Medrol when she first arrived. I will order p.o. prednisone. She continues to have significant wheezing and I have ordered additional neb treatment.I have also turned down her oxygen from 4 L as she was satting 98% to 2 L and have notified her nurse Miguel. 07/26/22 10:35 Per RN, patient needed to urinate And she was assisting her with the use of the bedpan. With just a small movements to lift herself up to get onto a bedpan, patient became very tachypneic, oxygen saturations dropped to 88% and her work of breathing increased.Patient still seems to require admission for her COPD exacerbation in the setting of influenza A. Although her symptoms have been greater than 48 hours I will start her on Tamiflu because she is going to be hospitalized. Patient is agreeable to this. D/W Hospitalist Dr. Mariano who graciously agrees to accept the patient for admission. Departure - Departure Disposition: ED Place in Observation Clinical Impression: Influenza A, COPD with acute exacerbation Condition: Serious
[2022-07-26] MEDS: OSELTAMIVIR 75 MG CAPSULE PO SCH ×2 (12:20→21:47)
[2022-07-26] MEDS ORDERED: oxyCODONE 5 MG TABLET PO PRN (14:17)
[2022-07-26] MEDS ORDERED: SODIUM CHLORIDE FLUSH 0.9% 10 ML SYRINGE IVP PRN (14:17)
[2022-07-26] MEDS ORDERED: ONDANSETRON ODT 4 MG TABLET TL PRN (14:17)
[2022-07-26] MEDS ORDERED: ONDANSETRON 4 MG/2 ML VIAL IVP PRN (14:17)
[2022-07-26] MEDS ORDERED: ALBUTEROL NEB 2.5 MG/3 ML INH PRN (14:22)
--- NOTE | 2022-07-26 14:29 | HISTORY & PHYSICAL EXAMINATION ---
Chief Complaint - Chief Complaint Chief Complaint: short of breath History of Present Illness - Admitted From Admitted From:: home via EMS - History Obtained From Records Reviewed: [employer] History obtained from: Dr. Gibbs, patient and her SO, Mr. Lucero Exam Limitations: none - History of Present Illness HPI Comment/Other: The patient is a 67-year-old woman that was brought in by ambulance to the [facility] room at approximately 10:00 last night. We did not have any beds last night and once discharges were done today, the patient was able to be brought to [facility]. She has a history of emphysema for which she takes Spiriva, Ventolin, budesonide, as well as DuoNeb. I asked her if she knew that there is an interaction between the ipratropium and the Spiriva. You can take 1 but not the other. She said that she was not aware of that. 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 She did not stop working until 2001. But she knew that something was wrong with her by 2000. She was starting to develop dyspnea on exertion, could not quite complete her work as fast as she used to because it made her so short of breath. She is 1/2 pack/day smoker that started at the age of 17 and quit smoking in 1997. On the job she was exposed to a lot of chemicals. 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 She says there was a lot of safety equipment to cover her face at that point in time. Between 2000 and now she is gradually deteriorated with her pulmonary status. More more dyspnea exertion, chronic daily cough with phlegm production. She says that she started to lose weight because she gets so short of breath she cannot even eat. The last year has been the worst year of all. In the last 3 days have been terrible. She came to the emergency room because of increasing shortness of breath and fever and headache for the last 3 days. She has grandchildren that she is in contact with and some of them are ill. She is usually on 2 L nasal cannula. But in the emergency room was requiring 4 L nasal cannula to saturate her at 92%. Respiratory rate was 22. She was wheezing, and respiratory distress and received nebulizers as well as IV Solu-Medrol. Chest x-ray was clear. Swab was positive for influenza A and she was started on Tamiflu. White cell count was 13.6. Glucose was 131. Venous blood gas was pH 7.389, PCO2 46.6, PO2 33. This morning, the ER doctor try to wean her down to her baseline 2 L. But she is consistently requiring 4 to 6 L. In trying to get her up to ambulate, on 2 L, she desaturated to 88% with increased respiratory rate, increased labored breathing and fatigue. The emergency room doctor called me to discuss the case in detail. We went over the causes of the COPD decompensation, lack of response to treatment, and the emergency room doctor is asking us to please place her in observation to see if we can get her over the hump of her acute COPD exacerbation. She had fallen on June 29, and started having intermittent confusion, left- sided weakness. Family called EMS on July 02 for a nosebleed. This history was relayed to them so they took her into the hospital for evaluation. 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 [facility] was called and they accepted the patient as a transfer of ED to ED. She is vague about what they did to her. She does not have any scars on her head. Her significant other, Mr. Lucero, states that he is disappointed. She only stayed for 6 days. She ended up having urinary retention and needed a Parmar catheter. When she was finally discharged she had a lot of problems with retention and incontinence. She was so weak that she was in a wheelchair. Its only been the last few days that she has been able to be out of the wheelchair, urinating on her own, and then the flu hit her. He says that she is up-to-date with her COVID vaccines. But he does not think she got her flu vaccine this year. History - Past Medical History Cardiovascular: reports: Hypertension Respiratory: reports: Emphysema Neuro: reports: Other (Lumbar radiculopathy) Endocrine/Autoimmune: reports: None GI: reports: Ulcers, Colon polyps, Crohn's disease CURRICULUM AND INSTRUCTION DIRECTOR: reports: Other (G2, P2) : reports: None HEENT: reports: Chronic vision loss Psych: reports: Depression, Anxiety Musculoskeletal: reports: Chronic back pain (3 lumbar surgeries, last 1 in September 2009. Chronic narcotic pain control under pain agreement.) Derm: reports: None MRSA Hx?: No - Past Surgical History General: reports: Cholecystectomy, Appendectomy, Gastric surgery (Pyloric stenosis surgery When she was less than 3 year old), Colonoscopy, EGD Ortho: reports: Spine surgery /CURRICULUM AND INSTRUCTION DIRECTOR: reports: Hysterectomy HEENT: reports: Tonsil/Adenoidectomy - Family & Social History Family History Comment/Other: Mom of complications of smoking and COPD at the age of 70. Dad at 74, he had been electrocuted, and he did not recover. He ended up losing both his legs, part of his liver, part of his stomach. It took a few years before he finally but she attributes it to the electrocution and the damage. She has 2 brothers. One smokes, and is star ting to develop emphysema but is otherwise healthy. The other brother does not smoke and is completely healthy. No high blood pressure, diabetes, cancer, heart attack that she knows of. 1 sister smokes quite a bit. She also has COPD with emphysema. She has 2 children. Her 1 son was murdered. Her daughter is alive, and is healthy. Living arrangement: At home Living Situation: With spouse/s.o. Social History Notes: Born and raised in [place]. From there she went to [place] at the age of 13. 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 But she smiled and said that it really was not much of a [employer] until squadrons started coming in. Retired in 2001. She has been before and had 2 children with him. However she has been with her boyfriend for the last 32 years. She started cigarette smoking at the age of 17, smoked a half a pack per day and stopped in 1997. She has no history of alcohol abuse or recreational substance abuse. - POLST Patient has POLST: No POLST Status: DNR Meds/Allgy - Home Medications Home Medications: Ambulatory Orders Medication Instructions Recorded Confirmed oxyCODONE [Roxicodone] 15 mg TID PRN 11/30/14 07/26/22 Albuterol Sulf [Ventolin Hfa 1 - 2 puffs INH Q4HR PRN #1 inhaler 12/05/18 07/26/22 Inhaler] Albuterol Sulfate [Albuterol 1 - 2 puffs INH Q4HR 12/05/18 07/26/22 Sulfate Hfa] lisinopriL [Lisinopril] 1 tab ORAL BID 12/05/18 07/26/22 Amlodipine Besylate [Norvasc] 1 tab PO DAILY 07/26/22 07/26/22 Budesonide [Pulmicort] 0.25 mg PO DAILY 07/26/22 07/26/22 Tiotropium [place] [Spiriva 1 cap PO DAILY 07/26/22 07/26/22 Respimat] - Allergies Allergies/Adverse Reactions: Allergies Allergy/AdvReac Type Severity Reaction Status Date / Time codeine Allergy Unknown Verified 07/25/22 22:33 morphine Allergy Unknown Verified 07/25/22 22:33 Sulfa (Sulfonamide Allergy Unknown Verified 07/25/22 22:33 Antibiotics) Review of Systems - Constitutional Constitutional: reports: Fatigue, Chills, Malaise, Weakness, Poor appetite, Weight loss - Eyes Eyes: reports: Vision loss. denies: Pain - Ears, Nose & Throat Ears, Nose & Throat: reports: Nasal discharge, Nasal obstruction, Nasal congestion, Postnasal drainage, Sore throat. denies: Hearing loss, Hearing aids - Cardiovascular Cariovascular: denies: Irregular heart rate, Palpitations, Chest pain, Exertional dyspnea, Decr. exercise tolerance - Respiratory Respiratory: reports: Cough, Sputum production, Wheezing, SOB at rest, SOB with exertion - Gastrointestinal Gastrointestinal: reports: Abdominal distention, Diarrhea - Genitourinary Genitourinary: reports: Incontinence. denies: Dysuria, Frequency - Musculoskeletal Musculoskeletal: reports: Back pain, Muscle aches, Joint pain, Other (Buckling of left leg because of chronic left buttock and lateral hip pain secondary to lumbar surgeries). denies: Muscle pain - Integumentary Integumentary: denies: Rash, Pruritis - Neurological Neurological: reports: General weakness, Focal weakness (Left-sided when she had the brain bleed last month. She thinks that it is gone away.), Headache - Psychiatric Psychiatric: reports: Depression, Anxiety - Endocrine Endocrine: denies: Polyuria, Polydypsia, Polyphagia - Hematologic/Lymphatic Hematologic/Lymphatic: denies: Anemia Prior Level of Functionality: She is lost a lot of ground over the last year. She says that she can still cook, clean, dress herself. But it takes her a long time to accomplish any 1 single task because she is so short of breath. Exam - Vital Signs Vital Signs: Vital Signs x48h Pulse Resp BP Pulse Ox O2 Flow Rate 07/26/22 14:24 78 20 8 07/26/22 11:00 127 H 31 H 147/80 H 94 6 07/26/22 09:00 124 H 22 150/87 H 94 2 07/26/22 08:24 78 15 12 07/26/22 07:00 116 H 19 139/80 H 94 4 - Physical Exam General Appearance: positive: Alert, Moderate distress, Other (She is sitting up on the bed, leaning forward, knees up, tripoding. Speaking to me brings on severe distress, and I have to ask her to just answer me yes or no. She is thin, cachectic.) Eyes Bilateral: positive: PERRL, EOMI ENT: positive: Pharyngeal erythema (Cobblestoning.), Other (Rhinorrhea, coryza) Neck: positive: No JVD, Lymphadenopathy (R), Lymphadenopathy (L). negative: Stiff neck Respiratory: positive: Wheezes, Other (Poor air movement. The wheezes are faint and scant. Tripoding.) Cardiovascular: positive: Regular rate & rhythm, Tachycardia Peripheral Pulses: positive: 0 Abdomen: positive: Non-tender, No organomegaly, Nml bowel sounds, No distention Skin: positive: Dry, Other (Hands and feet are quite cold) Extremities: positive: Non-tender, No pedal edema Neurologic/Psychiatric: positive: Oriented x3, CN's nml (2-12), Motor nml Conclusion/Plan - Problem List (1) Acute and chronic respiratory failure with hypoxia Conclusion/Plan: Due to decompensation of her COPD with influenza. She is on chronic oxygen therapy at home. See below (2) COPD with acute exacerbation Conclusion/Plan: She has chronic COPD, unknown pulmonary function studies. I do not have access to them. She says that she is followed at [facility], and has a primary care named Kelly Lucero. She remembers that she does have PFTs and describes the procedure. But she does not remember the numbers. She takes anticholinergics, bronc dilators in the form of beta agonist, inhaled steroids. Stable for the most part until this episode of influenza A. Stable being defined as able to do her activities slowly but still with significant dyspnea on exertion. She seems to be describing a year of weight loss, progressive shortness of breath. No nichole terial pneumonia seen on chest x-ray Today.. No history of congestive heart failure. Plan: Observation status DuoNeb 4 times a day Solu-Medrol 40 mg IV push 3 times daily for 4 doses inhaled steroid twice a day (3) Influenza A Conclusion/Plan: Tamiflu 75 mg p.o. twice daily for total of 10 doses. Chest x-ray does not indicate a secondary pneumonia at this time and assess no antibiotic (4) Chronic pain syndrome Conclusion/Plan: She is on a chronic pain contract at 15 mg of oxycodone 3 times daily. I will resume that while here. I do not have access to any report. I will asked the ER to see if they ran 1 on her and verify prescription use. Or I will have pharmacy do that when I reconcile her med list tomorrow. (5) Hypertension Conclusion/Plan: At home she takes lisinopril. Blood pressure has been occasionally elevated to the 150s systolic while here. Plan: Resume blood pressure, Monitor to see if there needs to be adjustment in medication Qualifiers: Hypertension type: primary hypertension Qualified Code(s): I10 - Essential (primary) hypertension (6) Do not resuscitate Conclusion/Plan: During my history and physical, and as part of her social history and review of systems she seem to be describing a slow but grim reduction in functional status due to her COPD. She does not remember when the oxygen started. When I asked if she wanted to be a full code or DO NOT RESUSCITATE she asked what her chances would be if we just did CPR and that was it. She says that she would never want to be intubated because she knows that she will end up on a machine. I told her that the chances are very slim that she would recover from just chest compressions. I also was fearful due to her size and small stature that we would do significant cracking of her ribs without effort. If she did managed to get through resuscitative effort, I do not have a reasonable expectation she will go back to her life even as it is now. Exertion is quite limited. She is able to do things but a simple task of washing dishes will take her 25 minutes because of severe dyspnea on exertion. With that in mind, the patient stated she wants to be DO NOT RESUSCITATE. She does not want chest compressions. She does not want intubation. I did explain to her that before that happens, we would still do everything with regards to active treatment. Antibiotics, transfusions, pressors would be done. She asked me to update her significant other/spouse. She says they are not legally but they have been together for 32 years. So I had a long conversation with him as well. He said he will update the family. - Lab Results Lab results reviewed: Yes Fish Bones: 07/25/22 22:44 07/25/22 22:44 - Diagnostic Imaging Results Diagnostic Imaging Results: positive: Final report reviewed Diagnostic Imaging Results Comments: Chest x-ray is without acute cardiopulmonary disease. There is hyperinflation of the lungs with flattening of the hemidiaphragms compatible with COPD. Core Measures - Anticipated LOS I expect patient to be DC'd or transferred within 96 hours.: Yes - DVT/VTE - Prophylaxis VTE/DVT Prophylaxis med ordered at admit?: Yes
[2022-07-26] MEDS: lisinopriL 20 MG TABLET PO SCH (15:52)
[2022-07-26] MEDS: SODIUM CHLORIDE 0.9% 1,000 ML IV SCH (15:52)
[2022-07-26] MEDS: ACETAMINOPHEN 325 MG TABLET PO PRN (16:23)
--- NOTE | 2022-07-26 16:35 | PHARMACY PROGRESS NOTE ---
- Best Possible Medication History Admit Date and Time: 07/26/22 1417 Processed by: Pharmacy Medication History completed: Yes Patient Interview: Completed Secondary Source(s): Spouse/Significant other, Pharmacy records ( gives meds.) As the person ultimately responsible for medication therapy, providers are able to order a medication from an existing home medication list in [facility] via the "Reconcile Routine" prior to Confirmation of that medication by medical support assistant. Such practice is discouraged except when the physician, in their clinical judgment, deems that a medical need exists for a medication without regard to previous use.
[2022-07-26] MEDS: IPRATROPIUM/ALBUTEROL 3 ML NEB INH SCH ×2 (17:12→18:02)
[2022-07-26] MEDS: SODIUM CHLORIDE FLUSH 0.9% 10 ML SYRINGE IVP SCH (17:38)
[2022-07-26] MEDS: BUDESONIDE 0.5 MG/2 ML NEB INH SCH (18:05)
[2022-07-26] MEDS: oxyCODONE 5 MG TABLET PO SCH (21:47)
[2022-07-26] MEDS: methylPREDNISolone SUCCINATE 40 MG/ML VIAL IVP SCH (21:48)
[2022-07-27] MEDS: SODIUM CHLORIDE FLUSH 0.9% 10 ML SYRINGE IVP SCH ×3 (00:15→17:40)
[2022-07-27] MEDS: SODIUM CHLORIDE 0.9% 1,000 ML IV SCH (02:17)
[2022-07-27 04:39] LABS: BASOPHILS % (AUTO) 0.1 %; EOSINOPHILS % (AUTO) 0.1 %; HCT - HEMATOCRIT 40.6 % (37.0-47.0); HGB - HEMOGLOBIN 12.8 g/dL (12.0-16.0); LYMPHOCYTES # (AUTO) 0.3 10^3/uL (1.5-3.5); LYMPHOCYTES % (AUTO) 4.1 %; MEAN CORPUSCULAR HEMOGLOBIN 28.5 pg (27.0-31.0); MEAN CORPUSCULAR HGB CONC 31.5 g/dL (32.0-36.0); MEAN CORPUSCULAR VOLUME 90.4 fL (81.0-99.0); MEAN PLATELET VOLUME 9.7 fL (7.9-10.8); MONOCYTES # (AUTO) 0.6 10^3/uL (0.0-1.0); MONOCYTES % (AUTO) 8.3 %; NEUTROPHILS # (AUTO) 6.3 10^3/uL (1.5-6.6); PLT - PLATELET COUNT 305 10^3/uL (130-450); RED BLOOD COUNT 4.49 10^6/uL (4.20-5.40); RED CELL DISTRIBUTION WIDTH 13.9 % (12.0-15.0); WHITE BLOOD COUNT 7.3 x10^3/uL (4.8-10.8)
[2022-07-27 04:52] LABS: CALCIUM 9.3 mg/dL (8.5-10.3); CREATININE 0.5 mg/dL (0.4-1.0); POTASSIUM 3.6 mmol/L (3.5-5.0)
[2022-07-27] MEDS: IPRATROPIUM/ALBUTEROL 3 ML NEB INH SCH ×3 (05:58→15:17)
[2022-07-27] MEDS: BUDESONIDE 0.5 MG/2 ML NEB INH SCH (05:58)
[2022-07-27] MEDS: methylPREDNISolone SUCCINATE 40 MG/ML VIAL IVP SCH ×3 (06:16→21:15)
[2022-07-27] MEDS: oxyCODONE 5 MG TABLET PO SCH (06:17)
[2022-07-27] MEDS: lisinopriL 20 MG TABLET PO SCH (08:34)
[2022-07-27] MEDS: OSELTAMIVIR 75 MG CAPSULE PO SCH ×2 (08:34→21:15)
[2022-07-27] MEDS: ENOXAPARIN 40 MG/0.4 ML SYRINGE SUBQ SCH (08:34)
--- NOTE | 2022-07-27 14:07 | PROVIDER PROGRESS NOTE ---
Subjective - Prog Note Date Prog Note Date: 07/27/22 Prog Note Time: 14:05 - Subjective Subjective: When I walk in the room she looks better to me because she is sitting upright, and almost laying a little bit back. She appears comfortable. No tachypnea. I tell her that she looks better to me because she is not tripoding anymore. She smiled and said that if she did not have the nightstand in front of her, she would be leaning forward in the tripoding position. Although she feels better than last night with less air hunger, she still feels like she is not back to baseline. Any effort on her part resulted in decompensation and she has to wait a long time to get back her breath. Ate a few bites of her eggs this morning. Half of her oatmeal. Nurse reports that it was about half of her food. In looking at her overall weight, she used to be in the high 90s. She was 72 pounds in May of this year. She is 83 pounds now. Current Medications - Current Medications Current Medications: Active Medications Acetaminophen (Acetaminophen 325 Mg Tablet) 650 mg PO Q4HR PRN PRN Reason: Pain 1 to 4, or Fever Last Admin: 07/26/22 16:23 Dose: 650 mg Albuterol (Albuterol Neb 2.5 Mg/3 Ml) 2.5 mg INH RTQ4H PRN PRN Reason: Wheezing Last Admin: 07/26/22 23:10 Dose: 2.5 mg Albuterol/Ipratropium (Ipratropium/Albuterol 3 Ml Neb) 3 ml INH RTQID [facility] Last Admin: 07/27/22 10:28 Dose: 3 ml Budesonide (Budesonide 0.5 Mg/2 Ml Neb) 0.5 mg INH RTBID [facility] Last Admin: 07/27/22 05:58 Dose: 0.5 mg Enoxaparin Sodium (Enoxaparin 40 Mg/0.4 Ml Syringe) 40 mg SUBQ DAILY [facility] Last Admin: 07/27/22 08:34 Dose: 40 mg Lisinopril (Lisinopril 20 Mg Tablet) 20 mg PO DAILY [facility] Last Admin: 07/27/22 08:34 Dose: 20 mg Methylprednisolone (Methylprednisolone Succinate 40 Mg/Ml Vial) 40 mg IVP TID [facility] Stop: 07/27/22 22:01 Last Admin: 07/27/22 06:16 Dose: 40 mg Ondansetron HCl (Ondansetron Odt 4 Mg Tablet) 4 mg TL Q6HR PRN PRN Reason: Nausea / Vomiting Ondansetron HCl (Ondansetron 4 Mg/2 Ml Vial) 4 mg IVP Q6HR PRN PRN Reason: Nausea / Vomiting Oseltamivir Phosphate (Oseltamivir 75 Mg Capsule) 75 mg PO BID [facility] Stop: 07/30/22 23:59 Oxycodone HCl (Oxycodone 30 Mg Tablet) 15 mg PO TID [facility] Sodium Chloride (Sodium Chloride Flush 0.9% 10 Ml Syringe) 10 ml IVP PRN PRN PRN Reason: NEEDED PER PROVIDER ORDERS Sodium Chloride (Sodium Chloride Flush 0.9% 10 Ml Syringe) 10 ml IVP 0100,0900,1700 [facility] Last Admin: 07/27/22 08:34 Dose: 10 ml oxyCODONE [Roxicodone] 15 mg TID PRN 11/30/14 Albuterol Sulfate [Albuterol Sulfate Hfa] 1 - 2 puffs INH Q4HR 12/05/18 lisinopriL [Lisinopril] 1 tab ORAL BID 12/05/18 Amlodipine Besylate [Norvasc] 1 tab PO DAILY 07/26/22 Budesonide [Pulmicort] 0.25 mg PO DAILY 07/26/22 Tiotropium [place] [Spiriva Respimat] 1 cap PO DAILY 07/26/22 Objective - Vital Signs/Intake & Output Reviewed Vital Signs: Yes Vital Signs: Vital Signs x48h Temp Pulse Pulse Resp BP Pulse Ox O2 Flow Rate 07/27/22 10:28 78 21 2 07/27/22 09:00 36.6 C 120 H 22 159/72 H 97 30 Intake & Output: Intake & Output 07/24/22 07/25/22 07/26/22 07/27/22 23:59 23:59 23:59 23:59 Intake Total 1850 1003.333 Output Total 400 300 Balance 1450 703.333 - Objective General Appearance: positive: Alert, Moderate distress, Other (Thin cachectic appearing white female who looks much older than stated age. 39 kg.) Eyes Bilateral: positive: PERRL, EOMI ENT: positive: No signs of dehydration Neck: positive: No JVD. negative: Stiff neck Respiratory: positive: Wheezes. negative: Rales, Rhonchi Cardiovascular: positive: Regular rate & rhythm, Tachycardia Abdomen: positive: Non-tender, No organomegaly, Nml bowel sounds, No distention Skin: positive: Warm, Dry Extremities: positive: Full ROM, No pedal edema, Other (Overall loss of body mass with prominent bony structure) Neurologic/Psychiatric: positive: Oriented x3, CN's nml (2-12), Motor nml - Lab Results Fish Bones: 07/27/22 04:28 07/27/22 04:28 Other Labs: Lab Results x24hrs 07/27/22 07/27/22 Range/Units 04:28 04:28 WBC 7.3 (4.8-10.8) x10^3/uL RBC 4.49 (4.20-5.40) 10^6/uL Hgb 12.8 (12.0-16.0) g/dL Hct 40.6 (37.0-47.0) % MCV 90.4 (81.0-99.0) fL MCH 28.5 (27.0-31.0) pg MCHC 31.5 L (32.0-36.0) g/dL RDW 13.9 (12.0-15.0) % Plt Count 305 (130-450) 10^3/uL MPV 9.7 (7.9-10.8) fL Neut # (Auto) 6.3 (1.5-6.6) 10^3/uL Lymph # (Auto) 0.3 L (1.5-3.5) 10^3/uL [place] # (Auto) 0.6 (0.0-1.0) 10^3/uL Eos # (Auto) 0.0 (0.0-0.7) 10^3/uL Baso # (Auto) 0.0 (0.0-0.1) 10^3/uL Absolute Nucleated RBC 0.00 x10^3/uL Nucleated RBC % 0.0 /100WBC Sodium 141 (135-145) mmol/L Potassium 3.6 (3.5-5.0) mmol/L Chloride 102 (101-111) mmol/L Carbon Dioxide 27 (21-32) mmol/L Anion Gap 12.0 (6-13) BUN 18 (6-20) mg/dL Creatinine 0.5 (0.4-1.0) mg/dL Estimated GFR (MDRD) 124 (>89) Glucose 113 H (70-100) mg/dL Calcium 9.3 (8.5-10.3) mg/dL ABX Reporting Has patient been on IV antibiotics over the past 48 hours?: No Assessment/Plan - Problem List (1) Acute and chronic respiratory failure with hypoxia Impression: Due to decompensation of her COPD with influenza. She is on chronic oxygen therapy at home. See below (2) COPD with acute exacerbation Conclusion/Plan: She has chronic COPD, unknown pulmonary function studies. I do not have access to them. She says that she is followed at [place], and has a primary care named Kelly Lucero. She remembers that she does have PFTs and describes the procedure. But she does not remember the numbers. She takes anticholinergics, bronc dilators in the form of beta agonist, inhaled steroids. Stable for the most p art until this episode of influenza A. Stable being defined as able to do her activities slowly but still with significant dyspnea on exertion. She seems to be describing a year of weight loss, progressive shortness of breath. No bacterial pneumonia seen on chest x-ray Today.. No history of congestive heart failure. On admit her 02 needs were double her baseline. 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 I was able to discuss her case with her PCP, MORRIS Guzman, who is at [place]. She was seen in March and "doing ok, stable." She wasn't there for her COPD but for her toe nails. Last spirometry was 2018. FVC 1.57, FEV @ 51% with 0.95 liters. FEV/FVC 60%. she is consistently tachycardic. EKG has terrible baseline but leads V4 and V5 clearly show sinus tachycardia. Indirect sign of stress her heart and lungs are under. Plan: Observation status change to inpatient since she is still very douglas and is tachycardic DuoNeb 4 times a day Solu-Medrol 40 mg IV push 3 times daily for 4 doses will complete and I will go to bid for 4 doses then daily for 2 inhaled steroid twice a day I have asked her PCP to refer her to Pulmonology for full eval and to get more recent PFTs. I also recommend referral to cardiopulmonary rehab. I explained to him that she really does look at end-stage disease. The 0.95 L of FEV speaks for itself. If she is not able to improve over the next few weeks to months, consider referring her for palliative care. (3) Influenza A Conclusion/Plan: Tamiflu 75 mg p.o. twice daily for total of 10 doses. Chest x-ray does not indicate a secondary pneumonia at this time and assess no antibiotic (4) Chronic pain syndrome Conclusion/Plan: She is on a chronic pain contract at 15 mg of oxycodone 3 times daily. I will resume that while here. I do not have access to any report. Pharmacy verified that she is stable with her use. And it is on her home med list. (5) Hypertension Conclusion/Plan: At home she takes lisinopril. Blood pressure has been occasionally elevated to the 150s systolic while here. Plan: Resume blood pressure, Monitor to see if there needs to be adjustment in medication Qualifiers: Hypertension type: primary hypertension Qualified Code(s): I10 - Essential (primary) hypertension (6) Do not resuscitate Conclusion/Plan: During my history and physical, and as part of her social history and review of systems she seem to be describing a slow but grim reduction in functional status due to her COPD. She does not remember when the oxygen started. When I asked if she wanted to be a full code or DO NOT RESUSCITATE she asked what her chances would be if we just did CPR and that was it. She says that she would never want to be intubated because she knows that she will end up on a machine. I told her that the chances are very slim that she would recover from just chest compressions. I also was fearful due to her size and small stature that we would do significant cracking of her ribs without effort. If she did managed to get through resuscitative effort, I do not have a reasonable expectation she will go back to her life even as it is now. Exertion is quite limited. She is able to do things but a simple task of washing dishes will take her 25 minutes because of severe dyspnea on exertion. With that in mind, the patient stated she wants to be DO NOT RESUSCITATE. She does not want chest compressions. She does not want intubation. I did explain to her that before that happens, we would still do everything with regards to active treatment. Antibiotics, transfusions, pressors would be done. She asked me to update her significant other/spouse. She says they are not legally but they have been together for 32 years. So I had a long c onversation with him as well. He said he will update the family. After updating the family, and then speaking to her on the phone, they have requested that if she needs intubation, to intubate her. But only intubated for 10 days. After 10 days to "pull the plug". But no CPR. (7) Severe protein calorie malnutrition At 5 feet 3 inches tall she is only 39 kg, and BMI is 15. Physical exam shows severe loss of muscle mass, and prominent bony structure in this cachectic appearing female who looks much older than stated age. She readily admits that eating lately has become an effort due to her exertional dyspnea. Plan: Nutrition services counselor to work with her. We will start considering protein boost.
[2022-07-27] MEDS: oxyCODONE 30 MG TABLET PO SCH ×2 (14:40→21:14)
[2022-07-27] MEDS: ACETAMINOPHEN 325 MG TABLET PO PRN (20:08)
[2022-07-28] MEDS: SODIUM CHLORIDE FLUSH 0.9% 10 ML SYRINGE IVP SCH ×3 (01:00→21:08)
[2022-07-28 05:17] LABS: EOSINOPHILS % (AUTO) 0.2 %; HCT - HEMATOCRIT 37.5 % (37.0-47.0); HGB - HEMOGLOBIN 12.1 g/dL (12.0-16.0); LYMPHOCYTES # (AUTO) 0.4 10^3/uL (1.5-3.5); MEAN CORPUSCULAR HEMOGLOBIN 28.7 pg (27.0-31.0); MEAN CORPUSCULAR HGB CONC 32.3 g/dL (32.0-36.0); MEAN CORPUSCULAR VOLUME 89.1 fL (81.0-99.0); MEAN PLATELET VOLUME 9.9 fL (7.9-10.8); MONOCYTES # (AUTO) 0.4 10^3/uL (0.0-1.0); MONOCYTES % (AUTO) 7.8 %; NEUTROPHILS # (AUTO) 4.6 10^3/uL (1.5-6.6); NEUTROPHILS % (AUTO) 84.6 %; PLT - PLATELET COUNT 274 10^3/uL (130-450); RED BLOOD COUNT 4.21 10^6/uL (4.20-5.40); RED CELL DISTRIBUTION WIDTH 13.8 % (12.0-15.0); WHITE BLOOD COUNT 5.4 x10^3/uL (4.8-10.8)
[2022-07-28] MEDS: oxyCODONE 30 MG TABLET PO SCH ×3 (05:28→21:08)
[2022-07-28 05:29] LABS: CALCIUM 8.9 mg/dL (8.5-10.3); CREATININE 0.5 mg/dL (0.4-1.0); POTASSIUM 3.1 mmol/L (3.5-5.0)
[2022-07-28] MEDS: BUDESONIDE 0.5 MG/2 ML NEB INH SCH (06:05)
[2022-07-28] MEDS: IPRATROPIUM/ALBUTEROL 3 ML NEB INH SCH ×3 (06:05→15:51)
[2022-07-28] MEDS: OSELTAMIVIR 75 MG CAPSULE PO SCH ×2 (09:15→21:08)
[2022-07-28] MEDS: CHOLECALCIFEROL 25 MCG TABLET PO SCH (09:15)
[2022-07-28] MEDS: lisinopriL 20 MG TABLET PO SCH (09:17)
[2022-07-28] MEDS: ENOXAPARIN 40 MG/0.4 ML SYRINGE SUBQ SCH (09:17)
[2022-07-28] MEDS: MULTIVITAMIN W/MINERALS TABLET PO SCH (10:55)
[2022-07-28] MEDS ORDERED: POTASSIUM CHLORIDE 20 MEQ TABLET PO ONE (12:17)
--- NOTE | 2022-07-28 12:20 | PROVIDER PROGRESS NOTE ---
Subjective - Prog Note Date Prog Note Date: 07/28/22 Prog Note Time: 12:19 - Subjective Subjective: She Had her last dose of steroids at 10:00 last night. I need to switch her to twice daily for 4 doses. She feels no better, no worse. She is on inhaled budesonide, DuoNeb. While she appears stabilized to me, she still significantly dyspneic with speaking, or trying to get up out of bed. Yesterday I helped her sit up in the afternoon because her backside was hurting by laying in the bed. She says her coccyx just really hurts in his bed. She was able to do it on her own with standby assist. Became quite dyspneic and took her about 5 minutes to recover but she was able to do it. She says this is far below her baseline. She is making herself eat. This morning she ate about 50% of her breakfast if not more. She has subxiphoid aching. Constant. No radiation. She is worried about it. She considers it chest pain even though its the subxiphoid region. Current Medications - Current Medications Current Medications: Active Medications Acetaminophen (Acetaminophen 325 Mg Tablet) 650 mg PO Q4HR PRN PRN Reason: Pain 1 to 4, or Fever Last Admin: 07/27/22 20:08 Dose: 650 mg Albuterol (Albuterol Neb 2.5 Mg/3 Ml) 2.5 mg INH RTQ4H PRN PRN Reason: Wheezing Last Admin: 07/26/22 23:10 Dose: 2.5 mg Albuterol/Ipratropium (Ipratropium/Albuterol 3 Ml Neb) 3 ml INH RTQID [facility] Last Admin: 07/28/22 10:56 Dose: 3 ml Budesonide (Budesonide 0.5 Mg/2 Ml Neb) 0.5 mg INH RTBID [facility] Last Admin: 07/28/22 06:05 Dose: 0.5 mg Cholecalciferol (Cholecalciferol 25 Mcg Tablet) 25 mcg PO DAILY [facility] Last Admin: 07/28/22 09:15 Dose: 25 mcg Enoxaparin Sodium (Enoxaparin 40 Mg/0.4 Ml Syringe) 40 mg SUBQ DAILY [facility] Last Admin: 07/28/22 09:17 Dose: 40 mg Lisinopril (Lisinopril 20 Mg Tablet) 20 mg PO DAILY [facility] Last Admin: 07/28/22 09:17 Dose: 20 mg Methylprednisolone (Methylprednisolone Succinate 40 Mg/Ml Vial) 40 mg IVP BID [facility] Stop: 07/29/22 21:01 Multivitamins/Minerals (Multivitamin W/Minerals Tablet) 1 tab PO DAILYWM [facility] Last Admin: 07/28/22 10:55 Dose: 1 tab Ondansetron HCl (Ondansetron Odt 4 Mg Tablet) 4 mg TL Q6HR PRN PRN Reason: Nausea / Vomiting Ondansetron HCl (Ondansetron 4 Mg/2 Ml Vial) 4 mg IVP Q6HR PRN PRN Reason: Nausea / Vomiting Oseltamivir Phosphate (Oseltamivir 75 Mg Capsule) 75 mg PO BID [facility] Stop: 07/30/22 23:59 Last Admin: 07/28/22 09:15 Dose: 75 mg Oxycodone HCl (Oxycodone 30 Mg Tablet) 15 mg PO TID [facility] Last Admin: 07/28/22 05:28 Dose: 15 mg Potassium Chloride (Potassium Chloride 20 Meq Tablet) 20 meq PO DAILYWM [facility] Sodium Chloride (Sodium Chloride Flush 0.9% 10 Ml Syringe) 10 ml IVP PRN PRN PRN Reason: NEEDED PER PROVIDER ORDERS Sodium Chloride (Sodium Chloride Flush 0.9% 10 Ml Syringe) 10 ml IVP 0100,0900,1700 [facility] Last Admin: 07/28/22 09:20 Dose: 10 ml oxyCODONE [Roxicodone] 15 mg TID PRN 11/30/14 Albuterol Sulfate [Albuterol Sulfate Hfa] 1 - 2 puffs INH Q4HR 12/05/18 lisinopriL [Lisinopril] 1 tab ORAL BID 12/05/18 Amlodipine Besylate [Norvasc] 1 tab PO DAILY 07/26/22 Budesonide [Pulmicort] 0.25 mg PO DAILY 07/26/22 Tiotropium [place] [Spiriva Respimat] 1 cap PO DAILY 07/26/22 Objective - Vital Signs/Intake & Output Reviewed Vital Signs: Yes Vital Signs: Vital Signs x48h Temp Pulse Pulse Resp BP Pulse Ox O2 Flow Rate 07/28/22 11:03 106 H 22 07/28/22 07:45 36.7 C 104 H 17 137/87 H 92 1.5 07/28/22 06:05 100 18 3 Intake & Output: Intake & Output 07/25/22 07/26/22 07/27/22 07/28/22 23:59 23:59 23:59 23:59 Intake Total 1850 2940.000 750 Output Total 400 1850 400 Balance 1450 1090.000 350 - Objective General Appearance: positive: Alert, Mild distress (At rest), Moderate distress (With trying to get up and move around), Other (Cachectic, frail-appearing female who looks older than stated age) Eyes Bilateral: positive: PERRL, EOMI ENT: positive: No signs of dehydration Neck: positive: No JVD. negative: Stiff neck Respiratory: positive: Wheezes. negative: Rales, Rhonchi Cardiovascular: positive: Regular rate & rhythm, Tachycardia (High as 121 on July 27. Today she is about 104, 106) Abdomen: positive: Non-tender, No organomegaly, Nml bowel sounds, No distention Skin: positive: Warm, Dry Extremities: positive: Full ROM, No pedal edema Neurologic/Psychiatric: positive: Oriented x3, CN's nml (2-12), Motor nml - Lab Results Fish Bones: 07/28/22 05:04 07/28/22 05:04 Other Labs: Lab Results x24hrs 07/28/22 07/28/22 Range/Units 05:04 05:04 WBC 5.4 (4.8-10.8) x10^3/uL RBC 4.21 (4.20-5.40) 10^6/uL Hgb 12.1 (12.0-16.0) g/dL Hct 37.5 (37.0-47.0) % MCV 89.1 (81.0-99.0) fL MCH 28.7 (27.0-31.0) pg MCHC 32.3 (32.0-36.0) g/dL RDW 13.8 (12.0-15.0) % Plt Count 274 (130-450) 10^3/uL MPV 9.9 (7.9-10.8) fL Neut # (Auto) 4.6 (1.5-6.6) 10^3/uL Lymph # (Auto) 0.4 L (1.5-3.5) 10^3/uL [place] # (Auto) 0.4 (0.0-1.0) 10^3/uL Eos # (Auto) 0.0 (0.0-0.7) 10^3/uL Baso # (Auto) 0.0 (0.0-0.1) 10^3/uL Absolute Nucleated RBC 0.00 x10^3/uL Nucleated RBC % 0.0 /100WBC Sodium 141 (135-145) mmol/L Potassium 3.1 L (3.5-5.0) mmol/L Chloride 101 (101-111) mmol/L Carbon Dioxide 30 (21-32) mmol/L Anion Gap 10.0 (6-13) BUN 20 (6-20) mg/dL Creatinine 0.5 (0.4-1.0) mg/dL Estimated GFR (MDRD) 124 (>89) Glucose 111 H (70-100) mg/dL Calcium 8.9 (8.5-10.3) mg/dL Assessment/Plan - Problem List (1) Acute and chronic respiratory failure with hypoxia Impression: Due to decompensation of her COPD with influenza A. She is alredy on chronic oxygen therapy at home. See below (2) COPD with acute exacerbation Conclusion/Plan: She has chronic COPD, and on admission I had no access to previous work up due to the fact she is followed at [place], and has a primary care named Kelly Lucero. She remembers that she does have PFTs and describes the procedure. But she does not remember the numbers. She takes anticholinergics, bronc dilators in the form of beta agonist, inhaled steroids. Stable for the most part until this episode of influenza A. Stable being defined as able to do her activities slowly but still with significant dyspnea on exertion. She seems to be describing a year of weight loss, progressive shortness of breath. No bacterial pneumonia seen on chest x-ray Today.. No history of congestive heart failure. On admit her 02 needs were double her baseline. 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 I was able to discuss her case 07/27 with her PCP, MORRIS Guzman, who is at [place]. She was seen in March and "doing ok, stable." She wasn't there for her COPD but for her toe nails. Last spirometry was 2019. FVC 1.57, FEV @ 51% with 0.95 liters. FEV/FVC 60%. she is consistently tachycardic. EKG has terrible baseline but leads V4 and V5 clearly show sinus tachycardia. Indirect sign of stress her heart and lungs are under. Plan: Continue with current care: DuoNeb 4 times a day Solu-Medrol 40 mg IV push 3 times daily for 4 doses will complete and I will go to bid for 4 doses then daily for 2 inhaled steroid twice a day I have asked her PCP to refer her to Pulmonology for full eval and to get more recent PFTs. I also recommend referral to cardiopulmonary rehab. I explained to him that she really does look at end-stage disease. The 0.95 L of FEV speaks for itself. If she is not able to improve over the next few weeks to months, consider referring her for palliative care. (3) Influenza A Conclusion/Plan: Tamiflu 75 mg p.o. twice daily for total of 10 doses. Chest x-ray does not indicate a secondary pneumonia at this time and assess no antibiotic (4) Chronic pain syndrome Conclusion/Plan: She is on a chronic pain contract at 15 mg of oxycodone 3 times daily. I will resume that while here. I do not have access to any report. Pharmacy verified that she is stable with her use. And it is on her home med list. (5) Hypertension Conclusion/Plan: At home she takes lisinopril. Blood pressure has been occasionally elevated to the 150s systolic while here. Plan: Home meds resumed Monitor to see if there needs to be adjustment in medication Qualifiers: Hypertension type: primary hypertension Qualified Code(s): I10 - Essential (primary) hypertension (6) Do not resuscitate Conclusion/Plan: During my history and physical, and as part of her social history and review of systems she seem to be describing a slow but grim reduction in functional status due to her COPD. She does not remember when the oxygen started. When I asked if she wanted to be a full code or DO NOT RESUSCITATE she asked what her chances would be if we just did CPR and that was it. She says that she would never want to be intubated because she knows that she will end up on a machine. I told her that the chances are very slim that she would recover from just chest compressions. I also was fearful due to her size and small stature that we would do significant cracking of her ribs without effort. If she did managed to get through resuscitative effort, I do not have a reasonable expectation she will go back to her life even as it is now. Exertion is quite limited. She is able to do things but a simple task of washing dishes will take her 25 minutes b ecause of severe dyspnea on exertion. With that in mind, the patient stated she wants to be DO NOT RESUSCITATE. She does not want chest compressions. She does not want intubation. I did explain to her that before that happens, we would still do everything with regards to active treatment. Antibiotics, transfusions, pressors would be done. She asked me to update her significant other/spouse. She says they are not legally but they have been together for 32 years. So I had a long co nversation with him as well. He said he will update the family. After updating the family, and then speaking to her on the phone, they have requested that if she needs intubation, to intubate her. But only intubated for 10 days. After 10 days to "pull the plug". But no CPR. I reiterated with her that is what she wanted. And she said yes. (7) Severe protein calorie malnutrition At 5 feet 3 inches tall she is only 39 kg, and BMI is 15. Physical exam shows severe loss of muscle mass, and prominent bony structure in this cachectic appearing female who looks much older than stated age. She readily admits that eating lately has become an effort due to her exertional dyspnea. Plan: Nutrition services counselor to work with her. We will start considering protei n boost.
[2022-07-28] MEDS: methylPREDNISolone SUCCINATE 40 MG/ML VIAL IVP SCH ×2 (14:11→14:15)
[2022-07-29] MEDS: ACETAMINOPHEN 325 MG TABLET PO PRN (00:54)
[2022-07-29] MEDS: SODIUM CHLORIDE FLUSH 0.9% 10 ML SYRINGE IVP SCH ×3 (00:55→21:27)
[2022-07-29] MEDS: BUDESONIDE 0.5 MG/2 ML NEB INH SCH ×3 (03:29→21:50)
[2022-07-29] MEDS: IPRATROPIUM/ALBUTEROL 3 ML NEB INH SCH ×5 (03:29→21:50)
[2022-07-29 05:44] LABS: BASOPHILS % (AUTO) 0.1 %; HCT - HEMATOCRIT 37.2 % (37.0-47.0); HGB - HEMOGLOBIN 12.1 g/dL (12.0-16.0); LYMPHOCYTES # (AUTO) 0.7 10^3/uL (1.5-3.5); LYMPHOCYTES % (AUTO) 5.7 %; MEAN CORPUSCULAR HEMOGLOBIN 28.5 pg (27.0-31.0); MEAN CORPUSCULAR HGB CONC 32.5 g/dL (32.0-36.0); MEAN CORPUSCULAR VOLUME 87.7 fL (81.0-99.0); MONOCYTES # (AUTO) 1.1 10^3/uL (0.0-1.0); MONOCYTES % (AUTO) 9.6 %; NEUTROPHILS # (AUTO) 9.9 10^3/uL (1.5-6.6); NEUTROPHILS % (AUTO) 84.3 %; PLT - PLATELET COUNT 261 10^3/uL (130-450); RED BLOOD COUNT 4.24 10^6/uL (4.20-5.40); RED CELL DISTRIBUTION WIDTH 13.7 % (12.0-15.0); WHITE BLOOD COUNT 11.7 x10^3/uL (4.8-10.8)
[2022-07-29 05:53] LABS: CALCIUM 8.9 mg/dL (8.5-10.3); CREATININE 0.5 mg/dL (0.4-1.0); POTASSIUM 3.5 mmol/L (3.5-5.0)
[2022-07-29] MEDS: oxyCODONE 30 MG TABLET PO SCH ×3 (05:57→21:23)
[2022-07-29] MEDS: OSELTAMIVIR 75 MG CAPSULE PO SCH ×2 (08:48→21:23)
[2022-07-29] MEDS: MULTIVITAMIN W/MINERALS TABLET PO SCH (08:48)
[2022-07-29] MEDS: CHOLECALCIFEROL 25 MCG TABLET PO SCH (08:48)
[2022-07-29] MEDS: POTASSIUM CHLORIDE 20 MEQ TABLET PO SCH (08:48)
[2022-07-29] MEDS: methylPREDNISolone SUCCINATE 40 MG/ML VIAL IVP SCH ×2 (09:24→21:23)
[2022-07-29] MEDS: ENOXAPARIN 40 MG/0.4 ML SYRINGE SUBQ SCH (09:24)
[2022-07-29] MEDS: lisinopriL 20 MG TABLET PO SCH (09:36)
[2022-07-29] MEDS: guaiFENesin 600 MG TABLET PO SCH ×2 (10:27→21:23)
--- NOTE | 2022-07-29 19:38 | PROVIDER PROGRESS NOTE ---
Assessment/Plan - Problem List (1) Acute and chronic respiratory failure with hypoxia Assessment/Plan: This has been due to decompensation of her COPD from as influenza A infection. She is already on chronic oxygen therapy at home. Plan: As in #2 (2) COPD with acute exacerbation Conclusion/Plan: She has chronic COPD, and she remembered that she did have PFTs and describes the procedure, but she does not remember the results. She takes anticholinergics, bronchodilators in the form of beta agonist, plus inhaled steroids, and was stable for the most part until this episode of influenza A. Stable being defined as being able to do her activities slowly but still with significant dyspnea on exertion. She also seems to be describing a year of weight loss, and progressive shortness of breath. No bacterial pneumonia seen on admission chest x-ray. No history of congestive heart failure. On admit her 02 needs were double of her baseline. She is back down to 2 liters after being on HFNC The last Hospitalist was able to discuss her case 07/27 with her PCP, MORRIS Guzman, who is at [place]. She was seen in March and "doing ok, stable." She wasn't there for her COPD but for her toe nails. Last spirometry was done in 2018. FVC 1.57, FEV @ 51% with 0.95 liters. FEV/FVC 60%. She was consistently tachycardic for several days. On EKG, V4 and V5 clearly s how sinus tachycardia. She is not dehydrated or hypotensive, therefore an indirect sign of stress her heart and lungs are under. Plan: Continue with current care: DuoNeb 4 times a day. If still tachy, will change to Xopenex Solu-Medrol 40 mg IV 3 times daily for 4 doses then bid for 4 doses then daily for 2 days. She may need a slow taper of Prednisone as an outpt, will decide on day of DCh. Cont inhaled steroid twice a day She gave a sputum sample and preliminary shows GPC and GNR, ID and sens pending. Will consider adding an antibx for bronchitis The last Hospitalist asked her PCP to refer her to Pulmonology for full eval and to get more updated PFTs. That Hospitalist also recommended referral to cardiopulmonary rehab, and explained to him that she really does look at end- stage COPD disease. The 0.95 L of FEV speaks for itself. If she is not able to improve over the next few weeks to months, consider referring her for palliative care. (3) Influenza A Conclusion/Plan: Chest x-ray did not indicate a secondary pneumonia at this time so no an tibiotics were started. Plan: Tamiflu 75 mg p.o. twice daily for total of 10 doses. She gave a sputum sample today, since has a productive cough, and preliminary resuklt shows GPC and GNR, but identification and sens are pending. Will consider adding an antibx for bronchitis (4) Chronic pain syndrome Conclusion/Plan: She is on a chronic pain contract at 15 mg of oxycodone 3 times daily. Plan: We resumed that while here, since Pharmacy verified that she is stable with her use and it is on her home med list. (5) Hypertension Conclusion/Plan: At home she takes lisinopril. Blood pressure has been occasionally elevated to the 150s systolic while here. Plan: Home meds resumed Monitor to see if there needs to be adjustment in medication or stopping an DESHAUN if it causes a chronic cough Qualifiers: Hypertension type: primary hypertension Qualified Code(s): I10 - Essential (primary) hypertension 6) Severe protein calorie malnutrition At 5 feet 3 inches tall she is only 39 kg, and BMI is 15. Physical exam shows severe loss of muscle mass, and prominent bony structure in this cachectic appearing female who looks much older than stated age. She readily admits that eating lately has become an effort due to her exertional dyspnea. Plan: Nutrition services counselor to work with her. We will start considering protein boost. (7) Do not resuscitate The patient stated she wants to be DO NOT RESUSCITATE. She does not want chest compressions. I f she needs intubation, OK to intubate her. But only intubated for 10 days. After 10 days to "pull the plug". - Current Meds Current Meds: Current Medications Generic Name Dose Route Start Last Admin Trade Name Freq PRN Reason Stop Dose Admin Acetaminophen 650 mg 07/26/22 14:17 07/29/22 00:54 Acetaminophen 325 Mg Tablet PO 650 mg Q4HR PRN Administration Pain 1 to 4, or Fever Albuterol 2.5 mg 07/26/22 14:22 07/26/22 23:10 Albuterol Neb 2.5 Mg/3 Ml INH 2.5 mg RTQ4H PRN Administration Wheezing Albuterol/Ipratropium 3 ml 07/26/22 15:00 07/29/22 15:42 Ipratropium/Albuterol 3 Ml Neb INH 3 ml RTQID ABRAHAM Administration Budesonide 0.5 mg 07/26/22 19:00 07/29/22 06:35 Budesonide 0.5 Mg/2 Ml Neb INH 0.5 mg RTBID ABRAHAM Administration Cholecalciferol 25 mcg 07/28/22 09:00 07/29/22 08:48 Cholecalciferol 25 Mcg Tablet PO 25 mcg DAILY ABRAHAM Administration Enoxaparin Sodium 40 mg 07/27/22 09:00 07/29/22 09:24 Enoxaparin 40 Mg/0.4 Ml Syringe SUBQ 40 mg DAILY ABRAHAM Administration Guaifenesin 600 mg 07/29/22 11:00 07/29/22 10:27 Guaifenesin 600 Mg Tablet PO 600 mg BID ABRAHAM Administration Lisinopril 20 mg 07/26/22 15:00 07/29/22 09:36 Lisinopril 20 Mg Tablet PO 20 mg DAILY ABRAHAM Administration Methylprednisolone 40 mg 07/28/22 14:00 07/29/22 09:24 Methylprednisolone Succinate 40 Mg/Ml Vial IVP 07/29/22 21:01 40 mg BID ABRAHAM Administration Multivitamins/Minerals 1 tab 07/28/22 08:00 07/29/22 08:48 Multivitamin W/Minerals Tablet PO 1 tab DAILYWM ABRAHAM Administration Oseltamivir Phosphate 75 mg 07/27/22 21:00 07/29/22 08:48 Oseltamivir 75 Mg Capsule PO 07/30/22 23:59 75 mg BID ABRAHAM Administration Oxycodone HCl 15 mg 07/27/22 14:00 07/29/22 14:24 Oxycodone 30 Mg Tablet PO 15 mg TID ABRAHAM Administration Potassium Chloride 20 meq 07/29/22 08:00 07/29/22 08:48 Potassium Chloride 20 Meq Tablet PO 20 meq DAILYWM ABRAHAM Administration Sodium Chloride 10 ml 07/26/22 14:17 07/28/22 14:21 Sodium Chloride Flush 0.9% 10 Ml Syringe IVP 10 ml PRN PRN Administration NEEDED PER PROVIDER ORDERS Sodium Chloride 10 ml 07/26/22 17:00 07/29/22 09:24 Sodium Chloride Flush 0.9% 10 Ml Syringe IVP 10 ml 0100,0900,1700 [facility] Administration - Lab Result Fish Bone Diagrams: 07/30/22 05:07 07/30/22 05:07 - Additional Planning My Orders: My Active Orders 07/29/22 11:00 guaiFENesin [Mucinex] 600 mg PO BID 07/29/22 11:20 CUL, RESPIRATORY [RM] Stat Subjective - Subjective Patient Reports: Shortness of Breath (Minimally better today, still very SOB with ambulating, but no longer SOB moving in her bed. Still has a cough.) Objective Vital Signs: Vital Signs - 24 hr 07/29/22 07/29/22 07/29/22 00:29 06:36 07:50 Temperature 36.5 C 36.4 C L Heart Rate 102 H Heart Rate [ 93 94 Brachial] Respiratory 16 22 16 Rate Blood Pressure 134/80 H 136/80 H [Right Brachial artery] O2 Saturation 93 93 If not protocol 3 3 3 : Oxygen Flow, liters/minute 07/29/22 07/29/22 07/29/22 09:35 11:13 14:26 Temperature Heart Rate 92 Heart Rate [ Brachial] Respiratory 20 Rate Blood Pressure 131/84 H [Right Brachial artery] O2 Saturation 94 If not protocol 3 : Oxygen Flow, liters/minute 07/29/22 07/29/22 07/29/22 15:42 15:43 15:59 Temperature 36.5 C Heart Rate 100 Heart Rate [ 105 H Brachial] Respiratory 22 22 Rate Blood Pressure [Right Brachial artery] O2 Saturation 90 L If not protocol 3 3 : Oxygen Flow, liters/minute Oxygen O2 Source Nasal cannula Oxygen Flow Rate 6 I&O (Last 24 Hrs): Intake and Output Totals x24h 07/27/22 07/28/22 07/29/22 23:59 23:59 23:59 Intake Total 2940.000 1000 800 Output Total 1850 650 750 Balance 1090.000 350 50 General: Alert, Oriented x3, Other (Cachectic (BMI is 15).) HEENT: Mucous membr. moist/pink, Other (wearing O2 per n.c.) Neck: Supple, No JVD (in a vertical position) Neuro: Alert, Non Focal Cardiovascular: Regular rate, No murmurs Respiratory: Chest non-tender, Wheezes (scattered wheezes, no ralesor rhonchi) Abdomen: Normal bowel sounds, Soft Extremities: No clubbing, No edema, No tenderness/swelling - Results Results: Laboratory Results WBC 11.7 x10^3/uL (4.8-10.8) H 07/29/22 05:03 RBC 4.24 10^6/uL (4.20-5.40) 07/29/22 05:03 Hgb 12.1 g/dL (12.0-16.0) 07/29/22 05:03 Hct 37.2 % (37.0-47.0) 07/29/22 05:03 MCV 87.7 fL (81.0-99.0) 07/29/22 05:03 MCH 28.5 pg (27.0-31.0) 07/29/22 05:03 MCHC 32.5 g/dL (32.0-36.0) 07/29/22 05:03 RDW 13.7 % (12.0-15.0) 07/29/22 05:03 Plt Count 261 10^3/uL (130-450) 07/29/22 05:03 MPV 10.0 fL (7.9-10.8) 07/29/22 05:03 Neut # (Auto) 9.9 10^3/uL (1.5-6.6) H 07/29/22 05:03 Lymph # (Auto) 0.7 10^3/uL (1.5-3.5) L 07/29/22 05:03 [place] # (Auto) 1.1 10^3/uL (0.0-1.0) H 07/29/22 05:03 Eos # (Auto) 0.0 10^3/uL (0.0-0.7) 07/29/22 05:03 Baso # (Auto) 0.0 10^3/uL (0.0-0.1) 07/29/22 05:03 Absolute Nucleated RBC 0.00 x10^3/uL 07/29/22 05:03 Nucleated RBC % 0.0 /100WBC 07/29/22 05:03 VBG pH 7.389 (7.31-7.41) 07/25/22 22:44 VBG pCO2 46.6 mmHg (41-51) 07/25/22 22:44 VBG pO2 33.6 mmHg (25-47) 07/25/22 22:44 VBG HCO3 27.5 mmol/L (23-28) 07/25/22 22:44 VBG Total CO2 28.9 mmol/L (24-29) 07/25/22 22:44 VBG O2 Saturation 68.2 % (60-80) 07/25/22 22:44 VBG Base Excess 1.9 mmol/L (-2 - +2) 07/25/22 22:44 Sodium 137 mmol/L (135-145) 07/29/22 05:03 Potassium 3.5 mmol/L (3.5-5.0) 07/29/22 05:03 Chloride 101 mmol/L (101-111) 07/29/22 05:03 Carbon Dioxide 29 mmol/L (21-32) 07/29/22 05:03 Anion Gap 7.0 (6-13) 07/29/22 05:03 BUN 26 mg/dL (6-20) H 07/29/22 05:03 Creatinine 0.5 mg/dL (0.4-1.0) 07/29/22 05:03 Estimated GFR (MDRD) 124 (>89) 07/29/22 05:03 Glucose 105 mg/dL (70-100) H 07/29/22 05:03 Calcium 8.9 mg/dL (8.5-10.3) 07/29/22 05:03 Total Bilirubin 1.1 mg/dL (0.2-1.0) H 07/25/22 22:44 AST 20 IU/L (10-42) 07/25/22 22:44 ALT 15 IU/L (10-60) 07/25/22 22:44 Alkaline Phosphatase 60 IU/L (42-121) 07/25/22 22:44 Total Protein 7.8 g/dL (6.7-8.2) 07/25/22 22:44 Albumin 4.1 g/dL (3.2-5.5) 07/25/22 22:44 Globulin 3.7 g/dL (2.1-4.2) 07/25/22 22:44 Albumin/Globulin Ratio 1.1 (1.0-2.2) 07/25/22 22:44 Lipase 34 U/L (22-51) 07/25/22 22:44 Nasal Adenovirus (PCR) NOT DETECTED 07/25/22 22:44 Nasal B. parapertussis DNA (PCR) NOT DETECTED 07/25/22 22:44 Nasal Coronavir 229E PCR NOT DETECTED 12 22:44 Nasal Coronavir HKU1 PCR NOT DETECTED 12 22:44 Nasal Coronavir NL63 PCR NOT DETECTED 07/25/22 22:44 Nasal Coronavir OC43 PCR NOT DETECTED 07/25/22 22:44 Nasal Enterovir/Rhinovir PCR NOT DETECTED 07/25/22 22:44 Nasal Influenza A H3 PCR DETECTED A 07/25/22 22:44 Nasal Influenza B PCR NOT DETECTED 07/25/22 22:44 Nasal Influenza A PCR NOT DETECTED 07/25/22 22:44 Nasal Parainfluen 1 PCR NOT DETECTED 07/25/22 22:44 Nasal Parainfluen 2 PCR NOT DETECTED 07/25/22 22:44 Nasal Parainfluen 3 PCR NOT DETECTED 07/25/22 22:44 Nasal Parainfluen 4 PCR NOT DETECTED 07/25/22 22:44 Nasal RSV (PCR) NOT DETECTED 07/25/22 22:44 Nasal B.pertussis DNA PCR NOT DETECTED 07/25/22 22:44 Nasal C.pneumoniae (PCR) NOT DETECTED 07/25/22 22:44 Joseph Human Metapneumo PCR NOT DETECTED 07/25/22 22:44 Nasal M.pneumoniae (PCR) NOT DETECTED 07/25/22 22:44 Nasal SARS-CoV-2 (PCR) NOT DETECTED 07/25/22 22:44 - Procedures Procedures: Procedures ENDOSC POLYPECTOMY OF LG INTEST (01/29/15)
[2022-07-30] MEDS: SODIUM CHLORIDE FLUSH 0.9% 10 ML SYRINGE IVP SCH ×3 (03:15→20:54)
[2022-07-30] MEDS: ACETAMINOPHEN 325 MG TABLET PO PRN (03:18)
[2022-07-30] MEDS: oxyCODONE 30 MG TABLET PO SCH ×3 (05:09→21:53)
[2022-07-30 05:31] LABS: BASOPHILS % (AUTO) 0.1 %; HCT - HEMATOCRIT 41.5 % (37.0-47.0); HGB - HEMOGLOBIN 13.2 g/dL (12.0-16.0); LYMPHOCYTES # (AUTO) 0.4 10^3/uL (1.5-3.5); LYMPHOCYTES % (AUTO) 3.3 %; MEAN CORPUSCULAR HEMOGLOBIN 28.6 pg (27.0-31.0); MEAN CORPUSCULAR HGB CONC 31.8 g/dL (32.0-36.0); MEAN CORPUSCULAR VOLUME 89.8 fL (81.0-99.0); MEAN PLATELET VOLUME 9.9 fL (7.9-10.8); MONOCYTES # (AUTO) 0.8 10^3/uL (0.0-1.0); MONOCYTES % (AUTO) 6.2 %; NEUTROPHILS # (AUTO) 11.6 10^3/uL (1.5-6.6); NEUTROPHILS % (AUTO) 90.1 %; PLT - PLATELET COUNT 275 10^3/uL (130-450); RED BLOOD COUNT 4.62 10^6/uL (4.20-5.40); RED CELL DISTRIBUTION WIDTH 13.8 % (12.0-15.0); WHITE BLOOD COUNT 12.9 x10^3/uL (4.8-10.8)
[2022-07-30 05:39] LABS: CALCIUM 9.3 mg/dL (8.5-10.3); CREATININE 0.6 mg/dL (0.4-1.0)
[2022-07-30] MEDS: BUDESONIDE 0.5 MG/2 ML NEB INH SCH ×2 (07:25→19:40)
[2022-07-30] MEDS: IPRATROPIUM/ALBUTEROL 3 ML NEB INH SCH ×4 (07:25→19:40)
[2022-07-30] MEDS: lisinopriL 20 MG TABLET PO SCH (09:09)
[2022-07-30] MEDS: MULTIVITAMIN W/MINERALS TABLET PO SCH (09:09)
[2022-07-30] MEDS: POTASSIUM CHLORIDE 20 MEQ TABLET PO SCH (09:09)
[2022-07-30] MEDS: CHOLECALCIFEROL 25 MCG TABLET PO SCH (09:10)
[2022-07-30] MEDS: guaiFENesin 600 MG TABLET PO SCH ×2 (09:10→20:54)
[2022-07-30] MEDS: OSELTAMIVIR 75 MG CAPSULE PO SCH ×2 (09:10→20:54)
[2022-07-30] MEDS: ENOXAPARIN 40 MG/0.4 ML SYRINGE SUBQ SCH (09:10)
[2022-07-30] MEDS: LACTOBACILLUS RHAMNOSUS GG CAPSULE PO SCH (09:39)
[2022-07-30] MEDS ORDERED: levoFLOXacin 250 MG TABLET PO SCH (10:00)
--- NOTE | 2022-07-30 12:55 | PROVIDER PROGRESS NOTE ---
Assessment/Plan - Problem List (1) Acute and chronic respiratory failure with hypoxia Assessment/Plan: This has been due to decompensation of her COPD from as influenza A infection. She is already on chronic oxygen therapy at home. Plan: As in #2 (2) COPD with acute exacerbation Conclusion/Plan: She has chronic COPD, and she remembered that she did have PFTs and describes the procedure, but she does not remember the results. She takes anticholinergics, bronchodilators in the form of beta agonist, plus inhaled steroids, and was stable for the most part until this episode of influenza A. Stable being defined as being able to do her activities slowly but still with significant dyspnea on exertion. She also seems to be describing a year of weight loss, and progressive shortness of breath. No bacterial pneumonia seen on admission chest x-ray. No history of congestive heart failure. On admit her 02 needs were double of her baseline. She is back down to 2 liters after being on HFNC The last Hospitalist was able to discuss her case 07/27 with her PCP, MORRIS Guzman, who is at [place]. She was seen in March and "doing ok, stable." She wasn't there for her COPD but for her toe nails. Last spirometry was done in 2018. FVC 1.57, FEV @ 51% with 0.95 liters. FEV/FVC 60%. She was consistently tachycardic for several days. On EKG, V4 and V5 clearly s how sinus tachycardia. She is not dehydrated or hypotensive, therefore an indirect sign of stress her heart and lungs are under. Plan: Continue with current care: DuoNeb 4 times a day. If still tachy, will change to Xopenex Solu-Medrol was tapered down, and last night was last planned dose. She does need a slow taper of Prednisone as an outpt, will start 20 mg po daily today. Cont inhaled steroid twice a day She gave a sputum sample on 07/29 and it shows GPC and GNR, ID and sens still pending. Will start Levofloxacin today, for her chronic bronchitis, which will cover GPC and GNR The last Hospitalist asked her PCP to refer her to Pulmonology for full eval and to get more updated PFTs. That Hospitalist also recommended referral to cardiopulmonary rehab, and explained to him that she really does look at end- stage COPD disease. The 0.95 L of FEV speaks for itself. If she is not able to improve over the next few weeks to months, consider referring her for palliative care. Will also start Motelukast, given how severe her COPD is. (3) Influenza A Conclusion/Plan: Chest x-ray did not indicate a secondary pneumonia at this time so no antibiotics were started. But her spy sample has GPC and GNR Plan: Tamiflu 75 mg p.o. twice daily for total of 10 doses. Will start antibx for her productive bronchitis (4) Chronic pain syndrome Conclusion/Plan: She is on a chronic pain contract at 15 mg of oxycodone 3 times daily. Plan: We resumed that while here, since Pharmacy verified that she is stable with her use and it is on her home med list. (5) Hypertension Conclusion/Plan: At home she takes lisinopril. Blood pressure has been occasionally elevated to the 150s systolic while here. Plan: Home meds resumed Monitor to see if there needs to be adjustment in medication or stopping an DESHAUN if it causes a chronic cough Qualifiers: Hypertension type: primary hypertension Qualified Code(s): I10 - Essential (primary) hypertension 6) Severe protein calorie malnutrition At 5 feet 3 inches tall she is only 39 kg, and BMI is 15. Physical exam shows severe loss of muscle mass, and prominent bony structure in this cachectic appearing female who looks much older than stated age. She readily admits that eating lately has become an effort due to her exertional dyspnea. Plan: Nutrition services counselor to work with her. We will start considering protein boost. (7) Do not resuscitate The patient stated she wants to be DO NOT RESUSCITATE. She does not want chest compressions. If she needs intubation, "OK to intubate her. But only intubated for 10 days. After 10 days to pull the plug". - Current Meds Current Meds: Current Medications Generic Name Dose Route Start Last Admin Trade Name Freq PRN Reason Stop Dose Admin Acetaminophen 650 mg 07/26/22 14:17 07/30/22 03:18 Acetaminophen 325 Mg Tablet PO 650 mg Q4HR PRN Administration Pain 1 to 4, or Fever Albuterol 2.5 mg 07/26/22 14:22 07/26/22 23:10 Albuterol Neb 2.5 Mg/3 Ml INH 2.5 mg RTQ4H PRN Administration Wheezing Albuterol/Ipratropium 3 ml 07/26/22 15:00 07/30/22 11:15 Ipratropium/Albuterol 3 Ml Neb INH 3 ml RTQID ABRAHAM Administration Budesonide 0.5 mg 07/26/22 19:00 07/30/22 07:25 Budesonide 0.5 Mg/2 Ml Neb INH 0.5 mg RTBID ABRAHAM Administration Cholecalciferol 25 mcg 07/28/22 09:00 07/30/22 09:10 Cholecalciferol 25 Mcg Tablet PO 25 mcg DAILY ABRAHAM Administration Enoxaparin Sodium 40 mg 07/27/22 09:00 07/30/22 09:10 Enoxaparin 40 Mg/0.4 Ml Syringe SUBQ 40 mg DAILY ABARHAM Administration Guaifenesin 600 mg 07/29/22 11:00 07/30/22 09:10 Guaifenesin 600 Mg Tablet PO 600 mg BID ABRAHAM Administration Lactobacillus Rhamnosus 1 cap 07/30/22 10:00 07/30/22 09:39 Lactobacillus Rhamnosus Gg Capsule PO 1 cap DAILY ABRAHAM Administration Levofloxacin 750 mg 07/30/22 10:00 07/30/22 09:39 Levofloxacin 250 Mg Tablet PO 750 mg Q48H ABRAHAM Administration Lisinopril 20 mg 07/26/22 15:00 07/30/22 09:09 Lisinopril 20 Mg Tablet PO 20 mg DAILY ABRAHAM Administration Multivitamins/Minerals 1 tab 07/28/22 08:00 07/30/22 09:09 Multivitamin W/Minerals Tablet PO 1 tab DAILYWM ABRAHAM Administration Oseltamivir Phosphate 75 mg 07/27/22 21:00 07/30/22 09:10 Oseltamivir 75 Mg Capsule PO 07/30/22 23:59 75 mg BID ABRAHAM Administration Oxycodone HCl 15 mg 07/27/22 14:00 07/30/22 05:09 Oxycodone 30 Mg Tablet PO 15 mg TID ABRAHAM Administration Potassium Chloride 20 meq 07/29/22 08:00 07/30/22 09:09 Potassium Chloride 20 Meq Tablet PO 20 meq DAILYWM ABRAHAM Administration Sodium Chloride 10 ml 07/26/22 14:17 07/28/22 14:21 Sodium Chloride Flush 0.9% 10 Ml Syringe IVP 10 ml PRN PRN Administration NEEDED PER PROVIDER ORDERS Sodium Chloride 10 ml 07/26/22 17:00 07/30/22 09:15 Sodium Chloride Flush 0.9% 10 Ml Syringe IVP 10 ml 0100,0900,1700 [facility] Administration - Lab Result Fish Bone Diagrams: 07/30/22 05:07 07/30/22 05:07 - Additional Planning My Orders: My Active Orders 07/30/22 10:00 Lactobacillus Rhamnosus GG [Culturelle] 1 cap PO DAILY levoFLOXacin [Levaquin] 750 mg PO Q48H 07/30/22 11:14 Bowel Protocol [Bowel - Constipation Care] [RC] ONCE 07/30/22 12:00 predniSONE [Deltasone] 20 mg PO DAILYWM 07/31/22 09:00 polyethylene glycoL 3350 [Miralax] 17 gm PO DAILY Subjective - Subjective Patient Reports: Feeling Better (Not as SOB when moving in bed or getting OOB.) Objective Vital Signs: Vital Signs - 24 hr 07/29/22 07/29/22 07/29/22 14:26 15:42 15:43 Temperature Heart Rate 100 Heart Rate [ Brachial] Respiratory 22 Rate Blood Pressure [Right Brachial artery] O2 Saturation 94 If not protocol 3 3 : Oxygen Flow, liters/minute 07/29/22 07/29/22 07/30/22 15:59 21:50 00:31 Temperature 36.5 C 36.8 C Heart Rate 95 Heart Rate [ 105 H 95 Brachial] Respiratory 22 18 18 Rate Blood Pressure 122/76 [Right Brachial artery] O2 Saturation 90 L 92 If not protocol 3 3 3 : Oxygen Flow, liters/minute 07/30/22 07/30/22 07/30/22 00:35 07:26 08:18 Temperature 36.5 C Heart Rate 90 Heart Rate [ 77 Brachial] Respiratory 18 18 Rate Blood Pressure 115/78 [Right Brachial artery] O2 Saturation 92 95 If not protocol 4 4 4 : Oxygen Flow, liters/minute 07/30/22 11:16 Temperature Heart Rate 84 Heart Rate [ Brachial] Respiratory 18 Rate Blood Pressure [Right Brachial artery] O2 Saturation If not protocol 4 : Oxygen Flow, liters/minute Oxygen O2 Source Nasal cannula Oxygen Flow Rate 6 I&O (Last 24 Hrs): Intake and Output Totals x24h 07/28/22 07/29/22 07/30/22 23:59 23:59 23:59 Intake Total 1000 800 360 Output Total 650 900 350 Balance 350 -100 10 General: Alert, Oriented x3, Other (Cachectic.) HEENT: Mucous membr. moist/pink, Other (wearing O2 n.c.) Neck: Supple, No JVD (in a vertical position) Neuro: Alert, Non Focal Cardiovascular: Regular rate (distant heart sounds due to rhonchi) Respiratory: Rhonchi (both bases, up 1/2) Extremities: No clubbing, No edema, No tenderness/swelling - Results Results: Laboratory Results WBC 12.9 x10^3/uL (4.8-10.8) H 07/30/22 05:07 RBC 4.62 10^6/uL (4.20-5.40) 07/30/22 05:07 Hgb 13.2 g/dL (12.0-16.0) 07/30/22 05:07 Hct 41.5 % (37.0-47.0) 07/30/22 05:07 MCV 89.8 fL (81.0-99.0) 07/30/22 05:07 MCH 28.6 pg (27.0-31.0) 07/30/22 05:07 MCHC 31.8 g/dL (32.0-36.0) L 07/30/22 05:07 RDW 13.8 % (12.0-15.0) 07/30/22 05:07 Plt Count 275 10^3/uL (130-450) 07/30/22 05:07 MPV 9.9 fL (7.9-10.8) 07/30/22 05:07 Neut # (Auto) 11.6 10^3/uL (1.5-6.6) H 07/30/22 05:07 Lymph # (Auto) 0.4 10^3/uL (1.5-3.5) L 07/30/22 05:07 [place] # (Auto) 0.8 10^3/uL (0.0-1.0) 07/30/22 05:07 Eos # (Auto) 0.0 10^3/uL (0.0-0.7) 07/30/22 05:07 Baso # (Auto) 0.0 10^3/uL (0.0-0.1) 07/30/22 05:07 Absolute Nucleated RBC 0.00 x10^3/uL 07/30/22 05:07 Nucleated RBC % 0.0 /100WBC 07/30/22 05:07 VBG pH 7.389 (7.31-7.41) 07/25/22 22:44 VBG pCO2 46.6 mmHg (41-51) 07/25/22 22:44 VBG pO2 33.6 mmHg (25-47) 07/25/22 22:44 VBG HCO3 27.5 mmol/L (23-28) 07/25/22 22:44 VBG Total CO2 28.9 mmol/L (24-29) 07/25/22 22:44 VBG O2 Saturation 68.2 % (60-80) 07/25/22 22:44 VBG Base Excess 1.9 mmol/L (-2 - +2) 07/25/22 22:44 Sodium 137 mmol/L (135-145) 07/30/22 05:07 Potassium 4.0 mmol/L (3.5-5.0) 07/30/22 05:07 Chloride 97 mmol/L (101-111) L 07/30/22 05:07 Carbon Dioxide 32 mmol/L (21-32) 07/30/22 05:07 Anion Gap 8.0 (6-13) 07/30/22 05:07 BUN 20 mg/dL (6-20) 07/30/22 05:07 Creatinine 0.6 mg/dL (0.4-1.0) 07/30/22 05:07 Estimated GFR (MDRD) 100 (>89) 07/30/22 05:07 Glucose 144 mg/dL (70-100) H 07/30/22 05:07 Calcium 9.3 mg/dL (8.5-10.3) 07/30/22 05:07 Total Bilirubin 1.1 mg/dL (0.2-1.0) H 07/25/22 22:44 AST 20 IU/L (10-42) 07/25/22 22:44 ALT 15 IU/L (10-60) 07/25/22 22:44 Alkaline Phosphatase 60 IU/L (42-121) 07/25/22 22:44 Total Protein 7.8 g/dL (6.7-8.2) 07/25/22 22:44 Albumin 4.1 g/dL (3.2-5.5) 07/25/22 22:44 Globulin 3.7 g/dL (2.1-4.2) 07/25/22 22:44 Albumin/Globulin Ratio 1.1 (1.0-2.2) 07/25/22 22:44 Lipase 34 U/L (22-51) 07/25/22 22:44 Nasal Adenovirus (PCR) NOT DETECTED 07/25/22 22:44 Nasal B. parapertussis DNA (PCR) NOT DETECTED 07/25/22 22:44 Nasal Coronavir 229E PCR NOT DETECTED 07/25/22 22:44 Nasal Coronavir HKU1 PCR NOT DETECTED 07/25/22 22:44 Nasal Coronavir NL63 PCR NOT DETECTED 07/25/22 22:44 Nasal Coronavir OC43 PCR NOT DETECTED 07/25/22 22:44 Nasal Enterovir/Rhinovir PCR NOT DETECTED 07/25/22 22:44 Nasal Influenza A H3 PCR DETECTED A 07/25/22 22:44 Nasal Influenza B PCR NOT DETECTED 07/25/22 22:44 Nasal Influenza A PCR NOT DETECTED 07/25/22 22:44 Nasal Parainfluen 1 PCR NOT DETECTED 07/25/22 22:44 Nasal Parainfluen 2 PCR NOT DETECTED 07/25/22 22:44 Nasal Parainfluen 3 PCR NOT DETECTED 07/25/22 22:44 Nasal Parainfluen 4 PCR NOT DETECTED 07/25/22 22:44 Nasal RSV (PCR) NOT DETECTED 07/25/22 22:44 Nasal B.pertussis DNA PCR NOT DETECTED 07/25/22 22:44 Nasal C.pneumoniae (PCR) NOT DETECTED 07/25/22 22:44 Joseph Human Metapneumo PCR NOT DETECTED 07/25/22 22:44 Nasal M.pneumoniae (PCR) NOT DETECTED 07/25/22 22:44 Nasal SARS-CoV-2 (PCR) NOT DETECTED 07/25/22 22:44 - Procedures Procedures: Procedures ENDOSC POLYPECTOMY OF LG INTEST (01/29/15)
[2022-07-30] MEDS: predniSONE 20 MG TABLET PO SCH (13:59)
[2022-07-31] MEDS: SODIUM CHLORIDE FLUSH 0.9% 10 ML SYRINGE IVP SCH ×3 (00:22→17:30)
[2022-07-31] MEDS: oxyCODONE 30 MG TABLET PO SCH ×3 (05:55→22:28)
[2022-07-31 06:55] LABS: BASOPHILS % (AUTO) 0.1 %; HCT - HEMATOCRIT 40.2 % (37.0-47.0); HGB - HEMOGLOBIN 13.1 g/dL (12.0-16.0); LYMPHOCYTES # (AUTO) 0.9 10^3/uL (1.5-3.5); LYMPHOCYTES % (AUTO) 5.6 %; MEAN CORPUSCULAR HGB CONC 32.6 g/dL (32.0-36.0); MEAN CORPUSCULAR VOLUME 89.1 fL (81.0-99.0); MEAN PLATELET VOLUME 9.9 fL (7.9-10.8); MONOCYTES # (AUTO) 1.4 10^3/uL (0.0-1.0); MONOCYTES % (AUTO) 8.6 %; NEUTROPHILS # (AUTO) 13.7 10^3/uL (1.5-6.6); NEUTROPHILS % (AUTO) 84.8 %; PLT - PLATELET COUNT 268 10^3/uL (130-450); RED BLOOD COUNT 4.51 10^6/uL (4.20-5.40); RED CELL DISTRIBUTION WIDTH 13.8 % (12.0-15.0); WHITE BLOOD COUNT 16.2 x10^3/uL (4.8-10.8)
[2022-07-31 07:05] LABS: CALCIUM 9.2 mg/dL (8.5-10.3); CREATININE 0.6 mg/dL (0.4-1.0); POTASSIUM 3.5 mmol/L (3.5-5.0)
[2022-07-31] MEDS: IPRATROPIUM/ALBUTEROL 3 ML NEB INH SCH ×4 (07:12→17:53)
[2022-07-31] MEDS: BUDESONIDE 0.5 MG/2 ML NEB INH SCH ×2 (07:12→17:52)
[2022-07-31] MEDS: LACTOBACILLUS RHAMNOSUS GG CAPSULE PO SCH (08:26)
[2022-07-31] MEDS: MULTIVITAMIN W/MINERALS TABLET PO SCH (08:26)
[2022-07-31] MEDS: ENOXAPARIN 40 MG/0.4 ML SYRINGE SUBQ SCH (08:27)
[2022-07-31] MEDS: lisinopriL 20 MG TABLET PO SCH (08:27)
[2022-07-31] MEDS: predniSONE 20 MG TABLET PO SCH (08:27)
[2022-07-31] MEDS: guaiFENesin 600 MG TABLET PO SCH ×2 (08:27→22:28)
[2022-07-31] MEDS: CHOLECALCIFEROL 25 MCG TABLET PO SCH (08:27)
[2022-07-31] MEDS: POTASSIUM CHLORIDE 20 MEQ TABLET PO SCH (08:27)
[2022-07-31] MEDS: polyethylene glycoL 3350 17 GM PACKET PO SCH (08:27)
[2022-07-31] MEDS: DOCUSATE SODIUM 250 MG CAPSULE PO SCH (08:49)
[2022-07-31] MEDS: SENNA 8.6 MG TABLET PO SCH (08:49)
[2022-07-31] MEDS: MONTELUKAST 10 MG TABLET PO SCH ×2 (08:50→22:28)
--- NOTE | 2022-07-31 17:41 | PROVIDER PROGRESS NOTE ---
Assessment/Plan - Problem List (1) Acute and chronic respiratory failure with hypoxia Assessment/Plan: This has been due to decompensation of her COPD from as influenza A infection. She is already on chronic oxygen therapy at home. Plan: As in #2 And on day of DCh, plan to do an oximetry walk test (2) COPD with acute exacerbation Conclusion/Plan: She has chronic COPD, and she remembered that she did have PFTs and describes the procedure, but she does not remember the results. She takes anticholinergics, bronchodilators in the form of beta agonist, plus inhaled steroids, and was stable for the most part until this episode of influenza A. But she did her activities slowly with significant dyspnea on exertion. She also seems to be describing a year of weight loss, and progressive shortness of breath. No history of congestive heart failure. On admit her 02 needs were double of her baseline. She is back down to 2 liters after being on HFNC The last Hospitalist was able to discuss her case 07/27 with her PCP, MORRIS Guzman, who is at [place]. She was seen in March and "doing ok, stable." She wasn't there for her COPD but for her toe nails. Last spirometry was done in 2019. FVC 1.57, FEV @ 51% with 0.95 liters. FEV/FVC 60%. She Has had a productive cough and was started on Levaquin empirically several days ago Plan: Continue with current care: nebs, oral steroids now that solumedrol weraned down. Will also start Motelukast, given how severe her COPD is. She gave a sputum sample on 07/29 and it shows GPC and GNR, ID and sens still pending. Cont Levofloxacin, for her chronic bronchitis, which will cover GPC and GNR The last Hospitalist asked her PCP to refer her to Pulmonology for full eval and to get more updated PFTs. That Hospitalist also recommended referral to cardiopulmonary rehab, and explained to him that she really does look at end- stage COPD disease. The 0.95 L of FEV speaks for itself. If she is not able to improve over the next few weeks to months, consider referring her for palliative care. Possible DCh tomorrow, given how good her lungs spounded today (3) Influenza A Conclusion/Plan: Chest x-ray did not indicate a secondary pneumonia at this time so no antibiotics were started. But her sputum sample has GPC and GNR Plan: Tamiflu 75 mg p.o. twice daily for total of 10 doses. We started antibx empirically for her productive cough c/w bronchitis (4) Chronic pain syndrome Conclusion/Plan: She is on a chronic pain contract at 15 mg of oxycodone 3 times daily. Plan: We resumed that while here, since Pharmacy verified that she is stable with her use and it is on her home med list. (5) Hypertension Conclusion/Plan: At home she takes lisinopril. Blood pressure has been occasionally elevated to the 150s systolic while here. Plan: Home meds resumed Monitor to see if there needs to be adjustment in medication or stopping an DESHAUN if it causes a chronic cough Qualifiers: Hypertension type: primary hypertension Qualified Code(s): I10 - Essential (primary) hypertension 6) Severe protein calorie malnutrition At 5 feet 3 inches tall she is only 39 kg, and BMI is 15. Physical exam shows severe loss of muscle mass, and prominent bony structure in this cachectic appearing female who looks much older than stated age. She readily admits that eating lately has become an effort due to her exertional dyspnea. Plan: Nutrition services counselor to work with her. We will start considering protein boost. (7) Do not resuscitate The patient stated she wants to be DO NOT RESUSCITATE. She does not want chest compressions. If she needs intubation, "OK to intubate her. But only intubated for 10 days. After 10 days to pull the plug". - Current Meds Current Meds: Current Medications Generic Name Dose Route Start Last Admin Trade Name Freq PRN Reason Stop Dose Admin Acetaminophen 650 mg 07/26/22 14:17 07/30/22 03:18 Acetaminophen 325 Mg Tablet PO 650 mg Q4HR PRN Administration Pain 1 to 4, or Fever Albuterol 2.5 mg 07/26/22 14:22 07/26/22 23:10 Albuterol Neb 2.5 Mg/3 Ml INH 2.5 mg RTQ4H PRN Administration Wheezing Albuterol/Ipratropium 3 ml 07/26/22 15:00 07/31/22 15:51 Ipratropium/Albuterol 3 Ml Neb INH 3 ml RTQID ABRAHAM Administration Budesonide 0.5 mg 07/26/22 19:00 07/31/22 07:12 Budesonide 0.5 Mg/2 Ml Neb INH 0.5 mg RTBID ABRAHAM Administration Cholecalciferol 25 mcg 07/28/22 09:00 07/31/22 08:27 Cholecalciferol 25 Mcg Tablet PO 25 mcg DAILY ABRAHAM Administration Docusate Sodium 250 - 500 mg 07/31/22 09:00 07/31/22 08:49 Docusate Sodium 250 Mg Capsule PO 250 mg DAILY ABRAHAM Administration Enoxaparin Sodium 40 mg 07/27/22 09:00 07/31/22 08:27 Enoxaparin 40 Mg/0.4 Ml Syringe SUBQ 40 mg DAILY ABRAHAM Administration Guaifenesin 600 mg 07/29/22 11:00 07/31/22 08:27 Guaifenesin 600 Mg Tablet PO 600 mg BID ABRAHAM Administration Lactobacillus Rhamnosus 1 cap 07/30/22 10:00 07/31/22 08:26 Lactobacillus Rhamnosus Gg Capsule PO 1 cap DAILY ABRAHAM Administration Levofloxacin 750 mg 07/30/22 10:00 07/30/22 09:39 Levofloxacin 250 Mg Tablet PO 750 mg Q48H ABRAHAM Administration Lisinopril 20 mg 07/26/22 15:00 07/31/22 08:27 Lisinopril 20 Mg Tablet PO 20 mg DAILY ABRAHAM Administration Montelukast Sodium 10 mg 07/31/22 07:50 07/31/22 08:50 Montelukast 10 Mg Tablet PO 10 mg QPM ABRAHAM Administration Multivitamins/Minerals 1 tab 07/28/22 08:00 07/31/22 08:26 Multivitamin W/Minerals Tablet PO 1 tab DAILYWM ABRAHAM Administration Oxycodone HCl 15 mg 07/27/22 14:00 07/31/22 14:34 Oxycodone 30 Mg Tablet PO 15 mg TID ABRAHAM Administration Polyethylene Glycol 17 gm 07/31/22 09:00 07/31/22 08:27 Polyethylene Glycol 3350 17 Gm Packet PO 17 gm DAILY ABRAHAM Administration Potassium Chloride 20 meq 07/29/22 08:00 07/31/22 08:27 Potassium Chloride 20 Meq Tablet PO 20 meq DAILYWM ABRAHAM Administration Prednisone 20 mg 07/30/22 12:00 07/31/22 08:27 Prednisone 20 Mg Tablet PO 20 mg DAILYWM ABRAHAM Administration Senna 8.6 - 17.2 mg 07/31/22 09:00 07/31/22 08:49 Senna 8.6 Mg Tablet PO 8.6 mg DAILY ABRAHAM Administration Sodium Chloride 10 ml 07/26/22 14:17 07/28/22 14:21 Sodium Chloride Flush 0.9% 10 Ml Syringe IVP 10 ml PRN PRN Administration NEEDED PER PROVIDER ORDERS Sodium Chloride 10 ml 07/26/22 17:00 07/31/22 08:26 Sodium Chloride Flush 0.9% 10 Ml Syringe IVP 10 ml 0100,0900,1700 ABRAHAM Administration - Lab Result Fish Bone Diagrams: 07/31/22 06:32 07/31/22 06:32 - Additional Planning My Orders: My Active Orders 07/31/22 07:50 Montelukast [Singulair] 10 mg PO QPM 07/31/22 09:00 Docusate Sodium 250Mg Capsule [Colace 250Mg Capsule] 250 - 500 mg PO DAILY Senna [Senokot] 8.6 - 17.2 mg PO DAILY polyethylene glycoL 3350 [Miralax] 17 gm PO DAILY Subjective - Subjective Patient Reports: Feeling Better (She improves alot after a neb tx, she says. She has a Nebulizer at home but did not use it routinely.) Objective Vital Signs: Vital Signs - 24 hr 07/30/22 07/30/22 07/31/22 19:40 23:36 07:15 Temperature 36.7 C Heart Rate 102 H 79 Heart Rate [ 104 H Brachial] Respiratory 24 18 19 Rate Blood Pressure 130/74 [Right Brachial artery] O2 Saturation 92 If not protocol 2 2 2 : Oxygen Flow, liters/minute 07/31/22 07/31/22 07/31/22 08:18 08:20 11:52 Temperature 36.6 C Heart Rate 97 Heart Rate [ 103 H Brachial] Respiratory 20 Rate Blood Pressure 151/77 H [Right Brachial artery] O2 Saturation 89 L 92 If not protocol 2 3 3 : Oxygen Flow, liters/minute 07/31/22 07/31/22 07/31/22 13:04 13:05 15:37 Temperature 36.5 C Heart Rate Heart Rate [ 93 Brachial] Respiratory 16 Rate Blood Pressure 136/73 H [Right Brachial artery] O2 Saturation 84 L 90 L 95 If not protocol 3 : Oxygen Flow, liters/minute 07/31/22 15:53 Temperature Heart Rate 85 Heart Rate [ Brachial] Respiratory 17 Rate Blood Pressure [Right Brachial artery] O2 Saturation If not protocol 1 : Oxygen Flow, liters/minute Oxygen O2 Source Nasal cannula Oxygen Flow Rate 6 I&O (Last 24 Hrs): Intake and Output Totals x24h 07/29/22 07/30/22 07/31/22 23:59 23:59 23:59 Intake Total 800 1310 420 Output Total 900 1425 500 Balance -100 -115 -80 General: Alert, Oriented x3, Other (Cachectic) HEENT: Mucous membr. moist/pink, Other (edentulous) Neck: Supple, No JVD Neuro: Alert, Non Focal Cardiovascular: Regular rate Respiratory: Breath sounds nml (auscultated mari the completion of a neb treatment) Abdomen: Normal bowel sounds, Soft Extremities: No clubbing, No edema - Results Results: Laboratory Results WBC 16.2 x10^3/uL (4.8-10.8) H 07/31/22 06:32 RBC 4.51 10^6/uL (4.20-5.40) 07/31/22 06:32 Hgb 13.1 g/dL (12.0-16.0) 07/31/22 06:32 Hct 40.2 % (37.0-47.0) 07/31/22 06:32 MCV 89.1 fL (81.0-99.0) 07/31/22 06:32 MCH 29.0 pg (27.0-31.0) 07/31/22 06:32 MCHC 32.6 g/dL (32.0-36.0) 07/31/22 06:32 RDW 13.8 % (12.0-15.0) 07/31/22 06:32 Plt Count 268 10^3/uL (130-450) 07/31/22 06:32 MPV 9.9 fL (7.9-10.8) 07/31/22 06:32 Neut # (Auto) 13.7 10^3/uL (1.5-6.6) H 07/31/22 06:32 Lymph # (Auto) 0.9 10^3/uL (1.5-3.5) L 07/31/22 06:32 [place] # (Auto) 1.4 10^3/uL (0.0-1.0) H 07/31/22 06:32 Eos # (Auto) 0.0 10^3/uL (0.0-0.7) 07/31/22 06:32 Baso # (Auto) 0.0 10^3/uL (0.0-0.1) 07/31/22 06:32 Absolute Nucleated RBC 0.00 x10^3/uL 07/31/22 06:32 Nucleated RBC % 0.0 /100WBC 07/31/22 06:32 VBG pH 7.389 (7.31-7.41) 07/25/22 22:44 VBG pCO2 46.6 mmHg (41-51) 07/25/22 22:44 VBG pO2 33.6 mmHg (25-47) 07/25/22 22:44 VBG HCO3 27.5 mmol/L (23-28) 07/25/22 22:44 VBG Total CO2 28.9 mmol/L (24-29) 07/25/22 22:44 VBG O2 Saturation 68.2 % (60-80) 07/25/22 22:44 VBG Base Excess 1.9 mmol/L (-2 - +2) 07/25/22 22:44 Sodium 136 mmol/L (135-145) 07/31/22 06:32 Potassium 3.5 mmol/L (3.5-5.0) 07/31/22 06:32 Chloride 95 mmol/L (101-111) L 07/31/22 06:32 Carbon Dioxide 32 mmol/L (21-32) 07/31/22 06:32 Anion Gap 9.0 (6-13) 07/31/22 06:32 BUN 14 mg/dL (6-20) 07/31/22 06:32 Creatinine 0.6 mg/dL (0.4-1.0) 07/31/22 06:32 Estimated GFR (MDRD) 100 (>89) 07/31/22 06:32 Glucose 93 mg/dL (70-100) 07/31/22 06:32 Calcium 9.2 mg/dL (8.5-10.3) 07/31/22 06:32 Total Bilirubin 1.1 mg/dL (0.2-1.0) H 07/25/22 22:44 AST 20 IU/L (10-42) 07/25/22 22:44 ALT 15 IU/L (10-60) 07/25/22 22:44 Alkaline Phosphatase 60 IU/L (42-121) 07/25/22 22:44 Total Protein 7.8 g/dL (6.7-8.2) 07/25/22 22:44 Albumin 4.1 g/dL (3.2-5.5) 07/25/22 22:44 Globulin 3.7 g/dL (2.1-4.2) 07/25/22 22:44 Albumin/Globulin Ratio 1.1 (1.0-2.2) 07/25/22:44 Lipase 34 U/L (22-51) 07/25/22 22:44 Nasal Adenovirus (PCR) NOT DETECTED 07/25/22 22:44 Nasal B. parapertussis DNA (PCR) NOT DETECTED 07/25/22 22:44 Nasal Coronavir 229E PCR NOT DETECTED 07/25/22 22:44 Nasal Coronavir HKU1 PCR NOT DETECTED 07/25/22 22:44 Nasal Coronavir NL63 PCR NOT DETECTED 07/25/22 22:44 Nasal Coronavir OC43 PCR NOT DETECTED 07/25/22 22:44 Nasal Enterovir/Rhinovir PCR NOT DETECTED 07/25/22 22:44 Nasal Influenza A H3 PCR DETECTED A 07/25/22 22:44 Nasal Influenza B PCR NOT DETECTED 07/25/22 22:44 Nasal Influenza A PCR NOT DETECTED 07/25/22 22:44 Nasal Parainfluen 1 PCR NOT DETECTED 07/25/22 22:44 Nasal Parainfluen 2 PCR NOT DETECTED 07/25/22 22:44 Nasal Parainfluen 3 PCR NOT DETECTED 07/25/22 22:44 Nasal Parainfluen 4 PCR NOT DETECTED 07/25/22 22:44 Nasal RSV (PCR) NOT DETECTED 07/25/22 22:44 Nasal B.pertussis DNA PCR NOT DETECTED 07/25/22 22:44 Nasal C.pneumoniae (PCR) NOT DETECTED 07/25/22 22:44 Joseph Human Metapneumo PCR NOT DETECTED 07/25/22 22:44 Nasal M.pneumoniae (PCR) NOT DETECTED 07/25/22 22:44 Nasal SARS-CoV-2 (PCR) NOT DETECTED 07/25/22 22:44 - Procedures Procedures: Procedures ENDOSC POLYPECTOMY OF LG INTEST (01/29/15)
[2022-08-01] MEDS: SODIUM CHLORIDE FLUSH 0.9% 10 ML SYRINGE IVP SCH ×2 (01:46→08:03)
[2022-08-01] MEDS: BUDESONIDE 0.5 MG/2 ML NEB INH SCH (06:25)
[2022-08-01] MEDS: IPRATROPIUM/ALBUTEROL 3 ML NEB INH SCH ×2 (06:25→13:38)
[2022-08-01] MEDS: oxyCODONE 30 MG TABLET PO SCH ×2 (06:29→14:20)
[2022-08-01] MEDS: predniSONE 20 MG TABLET PO SCH (07:59)
[2022-08-01] MEDS: MULTIVITAMIN W/MINERALS TABLET PO SCH (07:59)
[2022-08-01] MEDS: LACTOBACILLUS RHAMNOSUS GG CAPSULE PO SCH (08:00)
[2022-08-01] MEDS: POTASSIUM CHLORIDE 20 MEQ TABLET PO SCH (08:00)
[2022-08-01] MEDS: lisinopriL 20 MG TABLET PO SCH (08:00)
[2022-08-01] MEDS: guaiFENesin 600 MG TABLET PO SCH (08:00)
[2022-08-01] MEDS: CHOLECALCIFEROL 25 MCG TABLET PO SCH (08:00)
[2022-08-01] MEDS: polyethylene glycoL 3350 17 GM PACKET PO SCH (08:01)
[2022-08-01] MEDS: DOCUSATE SODIUM 250 MG CAPSULE PO SCH (08:01)
[2022-08-01] MEDS: ENOXAPARIN 40 MG/0.4 ML SYRINGE SUBQ SCH (08:01)
[2022-08-01] MEDS: SENNA 8.6 MG TABLET PO SCH (08:02)
[2022-08-01 08:34] VITALS: BP 117/77
[2022-08-01] MEDS ORDERED: AMOX/CLAV 875 MG/125 MG TABLET PO SCH (09:00)
--- NOTE | 2022-08-01 11:35 | Discharge Plan ---
Discharge Plan Problem Reviewed?: Yes Disposition: Home Health Service Condition: Fair Prescriptions: Amox/Clav 875/125 [Augmentin 875/125 Tab] 1 tab PO BID #12 tab predniSONE [Deltasone] 20 mg PO DAILY #28 tab Ipratropium/Albuterol [Duoneb] 3 ml INH RTQID PRN #28 ea PRN Reason: Wheezing Montelukast [Singulair] 10 mg PO QPM #30 tab lisinopriL [Zestril] 20 mg PO DAILY #30 tab Diet: Regular Activity Restrictions: Activity as Tolerated Shower Restrictions: No Driving Restrictions: No Health Concerns: You were hospitalized to treat your COPD exacerbation that was caused by influenza virus bronchitis. You received steroids, nebulized treatments, antibiotics and several extra lung medications have been added. You are being discharged home today under the care of the Home Health agency, which will resume their PT OT and nursing visits. A prescription for several more days of antibiotics has been ordered. New medications were all electronically sent to your [employer] pharmacy in [place]. Some of your medications have been changed and some new ones added. (Amlodipine was stopped, Lisinopril is only once a day not twice a day, Montelukast is new, 6 days of antibiotics is new, a daily vitamin is new, and DuoNeb via nebulized inhalers is new). Please follow the list of medications that is being provided to you today. Please see your PCP in the next 1 to 2 weeks. We recommend that you be referred to a [facility] and that you also have referral to do outpatient Pulmonary Rehab, which has been shown to decrease hospitalizations. You were tested to see what your oxygen settings should now be and they are: 2 L/min of oxygen at rest continuously, but increase to 3 L/min oxygen with any activity. Plan of Treatment: As above. STOP SMOKING! Care Goals: Improvement in symptoms and stabilization are the goals. Assessment: The patient understands and is agreeable with the plan. Additional Instructions or Follow Up instructions: If you have new or worsening symptoms, call your PCP or your new [facility] for advice or come to the ER. Follow-Up Care: [facility] - Pulmonary No Smoking: If you smoke, Please STOP! Call for help. Follow-up with: Silverio Lucero PA [Physician No Access] -
--- NOTE | 2022-08-01 11:50 | DISCHARGE SUMMARY ---
Discharge Summary Admit Date: 07/26/22 Discharge Date: 08/01/22 Discharging Provider: Dr Alysa Lynch Primary Care Provider: MORRIS Lucero Code Status: Do Not Attempt Resuscitation Condition at Discharge: Fair Discharge Disposition: 06 [facility] Service - [facility] History of Present Illness: The patient is a 67-year-old woman that was brought in by ambulance to the emergency room at approximately 10:00 last night. We did not have any beds last night and once discharges were done today, the patient was able to be brought to [facility]. She has a history of emphysema for which she takes Spiriva, Ventolin, budesonide, as well as DuoNeb. I asked her if she knew that there is an interaction between the ipratropium and the Spiriva. You can take 1 but not the other. She said that she was not aware of that. 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 She started cigarette smoking at the age of 17, smoked a half a pack per day and stopped in 1997. She did not stop working until 2001. But she knew that something was wrong with her by 2000. She was starting to develop dyspnea on exertion, could not quite complete her work as fast as she used to because it made her so short of breath. She is 1/2 pack/day smoker that started at the age of 17 and quit smoking in 1997. On the job she was exposed to a lot of chemicals. 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 She says there was a lot of safety equipment to cover her face at that point in time. Between 2000 and now she is gradually deteriorated with her pulmonary status. More more dyspnea exertion, chronic daily cough with phlegm production. She says that she started to lose weight because she gets so short of breath she cannot even eat. The last year has been the worst year of all. In the last 3 days have been terrible. She came to the emergency room because of increasing shortness of breath and fever and headache for the last 3 days. She has grandchildren that she is in contact with and some of them are ill. She is usually on 2 L nasal cannula. But in the emergency room was requiring 4 L nasal cannula to saturate her at 92%. Respiratory rate was 22. She was wheezing, and respiratory distress and received nebulizers as well as IV Solu-Medrol. Chest x-ray was clear. Swab was positive for influenza A and she was started on Tamiflu. White cell count was 13.6. Glucose was 131. Venous blood gas was pH 7.389, PCO2 46.6, PO2 33. This morning, the ER doctor try to wean her down to her baseline 2 L. But she is consistently requiring 4 to 6 L. In trying to get her up to ambulate, on 2 L, she desaturated to 88% with increased respiratory rate, increased labored breathing and fatigue. The emergency room doctor called me to discuss the case in detail. We went over the causes of the COPD decompensation, lack of response to treatment, and the emergency room doctor is asking us to please place her in observation to see if we can get her over the hump of her acute COPD exacerbation. She had fallen on June 29, and started having intermittent confusion, left- sided weakness. Family called EMS on July 02 for a nosebleed. This history was relayed to them so they took her into the hospital for evaluation. 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 [facility] was called and they accepted the patient as a transfer of ED to ED. She is vague about what they did to her. She does not have any scars on her head. Her significant other, Mr. Lucero, states that he is disappointed. She only stayed for 6 days. She ended up having urinary retention and needed a Parmar catheter. When she was finally discharged she had a lot of problems with retention and incontinence. She was so weak that she was in a wheelchair. Its only been the last few days that she has been able to be out of the wheelchair, urinating on her own, and then the flu hit her. He says that she is up-to-date with her COVID vaccines. But he does not think she got her flu vaccine this year. The patient stated she wants to be DO NOT RESUSCITATE. She does not want chest compressions. If she needs intubation, "OK to intubate her. But only intubated for 10 days. After 10 days to pull the plug". - HOSPITAL COURSE Hospital Course: 1) Acute on chronic respiratory failure with hypoxia This was due to decompensation of her COPD from influenza A infection. She was already on chronic oxygen therapy at home. Years of oxygen atOn the day of discharge she underwent an oximetry walk test to determine if oxygen settings needed to be changed. On room air at rest her O2 saturation was 87%. On 2L of O2 at rest, her oxygen saturation was 92%. With ambulation on 2 L of O2, her oxygen saturation was 87%. With ambulation on 3 L of O2, her oxygen sat was 91%. I am ordering home oxygen to be set at 2 L/min at rest and 3 L/min with ambulation to treat her hypoxia from COPD and to prevent rehospitalization. (2) COPD with acute exacerbation She has chronic COPD, and she remembered that she did have PFTs. Last spirometry was done in 2019. FVC 1.57, FEV @ 51% with 0.95 liters. FEV/FVC 60%. She has been stable for the most part until this episode of influenza A. But she did her activities slowly with significant dyspnea on exertion. She also described a year of weight loss. On admission, her 02 needs were double of her baseline. She had recently been started on Levaquin empirically several days previously. Here we had her on nebs, solumedrol changed to oral steroids. We also started Motelukast. Her lungs always had wheezing and she was dyspneic with minimal movement. We recommend referral to a [employer] and to Pulmonary rehab. She may already have end-stage COPD disease, the 0.95 L of FEV speaks for itself. If she is not able to improve over the next few weeks to months, consider referring her for Palliative care. She was discharged home on nebulizers, Montelukast and Prednisone 20 mg daily with a slow taper planned over 6 weeks. (3) Influenza A Tamiflu 75 mg p.o. twice daily for total of 10 doses. Chest x-ray did not indicate a pneumonia, so no antibiotics were initially started. But her sputum sample showed GPC and GNR, thus she got a course of antibx empirically. (4) Hemophilus infection The sputum sample grew Haemophilus. She was started on oral Augmentin, and discharged to take six more days of Augmentin. (5) Chronic pain syndrome She is on a chronic pain contract at 15 mg of oxycodone 3 times daily. We resumed that while here. (6) Hypertension At home she took lisinopril. Home meds were resumed. PCP: please monitor to see if there needs to be adjustment in medication or stopping an DESHAUN, if it causes a chronic cough (7) Severe protein calorie malnutrition At 5 feet 3 inches tall she is only 39 kg, and BMI is 15. Physical exam shows severe loss of muscle mass, and prominent bony structure in this cachectic appearing female who looks much older than stated age. She readily admits that eating lately has become an effort due to her SOB at rest from COPD. - ALLERGIES Allergies/Adverse Reactions: Allergies Allergy/AdvReac Type Severity Reaction Status Date / Time codeine Allergy Unknown Verified 07/25/22 22:33 morphine Allergy Unknown Verified 07/25/22 22:33 Sulfa (Sulfonamide Allergy Unknown Verified 07/25/22 22:33 Antibiotics) - MEDICATIONS Home Medications: Ambulatory Orders Medication Instructions Recorded Confirmed oxyCODONE [Roxicodone] 15 mg TID PRN 11/30/14 07/26/22 Albuterol Sulf [Ventolin Hfa 1 - 2 puffs INH Q4HR PRN #1 inhaler 12/05/18 Inhaler] Albuterol Sulfate [Albuterol 1 - 2 puffs INH Q4HR 12/05/18 07/26/22 Sulfate Hfa] Budesonide [Pulmicort] 0.25 mg PO DAILY 07/26/22 07/26/22 Tiotropium [place] [Spiriva 1 cap PO DAILY 07/26/22 07/26/22 Respimat] Amox/Clav 875/125 [Augmentin 1 tab PO BID #12 tab 08/01/22 875/125 Tab] Ipratropium/Albuterol [Duoneb] 3 ml INH RTQID PRN #28 ea 08/01/22 Montelukast [Singulair] 10 mg PO QPM #30 tab 08/01/22 lisinopriL [Zestril] 20 mg PO DAILY #30 tab 08/01/22 predniSONE [Deltasone] 20 mg PO DAILY #28 tab 08/01/22 - PHYSICAL EXAM AT DISCHARGE General Appearance: positive: No acute distress (at rest), Mild distress (with talking or alking.) Eyes Bilateral: positive: Normal inspection ENT: positive: No signs of dehydration, Other (Cachexia) Neck: positive: Nml inspection, No JVD Respiratory: positive: Wheezes Cardiovascular: positive: Regular rate & rhythm, No murmur, Other (Vertically displaced PMI) Abdomen: positive: Non-tender, Nml bowel sounds, No distention Skin: positive: Warm, Dry Extremities: positive: Non-tender, No pedal edema, Other (Muscle wasting) Neurologic/Psychiatric: positive: Oriented x3, Motor nml - LABS Result Diagrams: 07/31/22 06:32 07/31/22 06:32 - DIAGNOSTIC IMAGING Diagnostic Imaging Results: Final report reviewed - FOLLOW UP Follow Up: See PCP in 1 to 2 weeks for hospital follow-up visit. Pulmonology referral recommended. Pulmonary rehab referral recommended. - TIME SPENT Time Spent in Discharge (Minutes): 40
== END 2022-08-01 14:15 | disposition home health service (06) | DRG 189 ==
LOC: EDUNIT# → ED 22:25 → MS2 07-26 14:17 → OBSVTOIN 07-27 14:03
PROVIDERS: ADMIT Specialist; ATTEND Internal Medicine
DX: J96.21 Acute and chronic respiratory failure with hypoxia (principal); E43 Unspecified severe protein-calorie malnutrition; Z68.1 Body mass index [BMI] 19.9 or less, adult; Z99.81 Dependence on supplemental oxygen; Z87.891 Personal history of nicotine dependence; J43.9 Emphysema, unspecified; J10.1 Influenza due to other identified influenza virus with other respiratory manifestations; G89.4 Chronic pain syndrome; I10 Essential (primary) hypertension; Z66 Do not resuscitate; Z91.81 History of falling; Z86.73 Personal history of transient ischemic attack (TIA), and cerebral infarction without residual deficits; F32.A Depression, unspecified; F41.9 Anxiety disorder, unspecified; M54.9 Dorsalgia, unspecified; Z20.822 Contact with and (suspected) exposure to COVID-19; R32 Unspecified urinary incontinence; R53.1 Weakness; R00.0 Tachycardia, unspecified; A49.2 Hemophilus influenzae infection, unspecified site
CPT/HCPCS: 36415; 71045; 80048; 80053; 82803; 83690; 85025; 87070; 87077; 87205; 87633; 93005; 94640; 94761; 96374; 99281; 99285; A9270; G0378; J1650; J7512; J7626

== ENCOUNTER 2022-09-05 15:07 | Outpatient (CLI) | payer MEDICARE | END 2022-09-05 15:08 | disposition critical access hospital (66) | LOC: EMS 15:07 | DX: R05.9 Cough, unspecified (principal); R68.83 Chills (without fever); R53.83 Other fatigue; R19.7 Diarrhea, unspecified; R11.0 Nausea; R06.00 Dyspnea, unspecified; R06.2 Wheezing; Z99.81 Dependence on supplemental oxygen | CPT/HCPCS: A0425; A0427 ==

== ENCOUNTER 2022-09-05 15:46 | Emergency (ER) | payer MEDICARE ==
--- NOTE | 2022-09-05 16:27 | XRAY Report ---
PROCEDURE: Chest 1 View X-Ray INDICATIONS: chest pain TECHNIQUE: One view of the chest was acquired. COMPARISON: Chest x-ray 07/25/2022 FINDINGS: Surgical changes and devices: None. Lungs and pleura: Lungs are hyperexpanded. There is blunting of the costophrenic angles appearing ch ronic. Overall appearance is suggestive of COPD. Mediastinum: Mediastinal contours appear normal. Heart size is normal. Bones and chest wall: No suspicious bony lesions. Overlying soft tissues appear unremarkable. IMPRESSION: No acute pulmonary process. Reviewed by: Staci Vance MD on 09/05/2022 4:26 PM [facility] Approved by: Staci Vance MD on 09/05/2022 4:26 PM [facility] Station ID: [id number]
[2022-09-05 17:01] LABS: B. PARAPERTUSSIS- RESP PCR PAN NOT DETECTED; B. PERTUSSIS- RESP PCR PANEL NOT DETECTED; C. PNEUMONIAE- RESP PCR PANEL NOT DETECTED; CORONAVIRUS 229E-RESP PCR NOT DETECTED; CORONAVIRUS HKU1-RESP PCR NOT DETECTED; CORONAVIRUS NL63-RESP PCR NOT DETECTED; CORONAVIRUS OC43-RESP PCR NOT DETECTED; HUMAN METAPNEUMOVIRUS DETECTED; INFLUENZA A- RESP PCR PANEL NOT DETECTED; INFLUENZA B - RESP PCR PANEL NOT DETECTED; M. PNEUMONIAE- RESP PCR PANEL NOT DETECTED; PARAINFLUENZA VIRUS 1 NOT DETECTED; PARAINFLUENZA VIRUS 2 NOT DETECTED; PARAINFLUENZA VIRUS 3 NOT DETECTED; PARAINFLUENZA VIRUS 4 NOT DETECTED; RHINOVIRUS/ENTEROVIRUS NOT DETECTED; RSV- RESP PCR PANEL NOT DETECTED; SARS-CoV-2 -RESP PCR PANEL NOT DETECTED
--- NOTE | 2022-09-05 17:10 | ED Physician Documentation ---
PD HPI DYSPNEA - Stated complaint Stated Complaint: N/V/D SOA - Chief complaint Chief Complaint: Resp - History obtained from History obtained from: Patient - Additional information Additional information: This is a 67-year-old female with a history of COPD on nasal cannula oxygen as needed who presents with 1 day of cough and nasal congestion With some increasing shortness of breath today. She also had an episode of soft stool today but no abdominal pain, no nausea or vomiting. She did not have a fever. She Reports exposure to her grandchild a few is 2 years old and has had some cold symptoms recently. She has been using her regular inhalers at home And received a DuoNeb by EMS prior to arrival which she states helped quite a bit and she is declines any additional breathing medication at this time. Review of Systems Constitutional: reports: Reviewed and negative Eyes: reports: Reviewed and negative Ears: reports: Reviewed and negative Nose: reports: Rhinorrhea / runny nose, Congestion Throat: reports: Reviewed and negative Cardiac: reports: Reviewed and negative Respiratory: reports: Dyspnea, Cough. denies: Hemoptysis, Wheezing GI: reports: Diarrhea. 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 : None HEENT: Chronic vision loss Psych: Depression, Anxiety Musculoskeletal: Chronic back pain Derm: None - Past Surgical History Past Surgical History: Yes General: Cholecystectomy, Appendectomy, Gastric surgery, Colonoscopy, EGD Ortho: Spine surgery /MANAGER TRANSFUSION: Hysterectomy HEENT: Tonsil/Adenoidectomy - Present Medications Home Medications: Ambulatory Orders Medication Instructions Recorded Confirmed oxyCODONE [Roxicodone] 15 mg TID PRN 11/30/14 07/26/22 Albuterol Sulf [Ventolin Hfa 1 - 2 puffs INH Q4HR PRN #1 inhaler 12/05/18 07/26/22 Inhaler] Albuterol Sulfate [Albuterol 1 - 2 puffs INH Q4HR 12/05/18 07/26/22 Sulfate Hfa] Budesonide [Pulmicort] 0.25 mg PO DAILY 07/26/22 07/26/22 Tiotropium [place] [Spiriva 1 cap PO DAILY 07/26/22 07/26/22 Respimat] Amox/Clav 875/125 [Augmentin 1 tab PO BID #12 tab 08/01/22 875/125 Tab] Ipratropium/Albuterol [Duoneb] 3 ml INH RTQID PRN #28 ea 08/01/22 Montelukast [Singulair] 10 mg PO QPM #30 tab 08/01/22 lisinopriL [Zestril] 20 mg PO DAILY #30 tab 08/01/22 predniSONE [Deltasone] 20 mg PO DAILY #28 tab 08/01/22 Doxycycline [Vibramycin] 100 mg PO BID #14 tablet 09/05/22 predniSONE [Deltasone] 10 mg PO [id number] #42 tab 09/05/22 - Allergies Allergies/Adverse Reactions: Allergies Allergy/AdvReac Type Severity Reaction Status Date / Time codeine Allergy Unknown Verified 09/05/22 15:52 morphine Allergy Unknown Verified 09/05/22 15:52 Sulfa (Sulfonamide Allergy Unknown Verified 09/05/22 15:52 Antibiotics) - Social History Does the pt smoke?: No Smoking Status: Never smoker Does the pt drink ETOH?: No Does the pt have substance abuse?: No - Immunizations Immunizations are current?: Yes - POLST Patient has POLST: No POLST Status: DNR PD ED PE NORMAL - Vitals Vital signs reviewed: Yes - General General: Alert and oriented X 3, No acute distress, Other (Appears frail, thin older than stated age but in no acute distress) - HEENT HEENT: Atraumatic, Moist mucous membranes, Pharynx benign - Neck Neck: Supple, no meningeal sign, No JVD - Cardiac Cardiac: No murmur, No gallop, No rub, Other (Mild tachycardia) - Respiratory Respiratory: No respiratory distress, Other (Few scattered expiratory wheezes, nonlabored) - Abdomen Abdomen: Normal bowel sounds, Soft, Non tender, Non distended - Derm Derm: Normal color, Warm and dry, No rash - Extremities Extremities: No deformity, No edema - Neuro Neuro: Alert and oriented X 3 Eye Opening: Spontaneous Motor: Obeys Commands Verbal: Oriented GCS Score: 15 - Psych Psych: Normal mood, Normal affect Results - Vitals Vitals: Vital Signs - 24 hr 09/05/22 09/05/22 15:52 15:56 Temperature 36.5 C 36.5 C Heart Rate 110 H 110 H Respiratory 20 18 Rate Blood Pressure 133/68 H 133/68 H O2 Saturation 96 96 If not protocol 3 : Oxygen Flow, liters/minute Oxygen O2 Source Nasal cannula Oxygen Flow Rate 3 - Labs Labs: Laboratory Tests 09/05/22 16:06 Nasal Adenovirus (PCR) NOT DETECTED Nasal B. parapertussis DNA (PCR) NOT DETECTED Nasal Coronavir 229E PCR NOT DETECTED Nasal Coronavir HKU1 PCR NOT DETECTED Nasal Coronavir NL63 PCR NOT DETECTED Nasal Coronavir OC43 PCR NOT DETECTED Nasal Enterovir/Rhinovir PCR NOT DETECTED Nasal Influenza B PCR NOT DETECTED Nasal Influenza A PCR NOT DETECTED Nasal Parainfluen 1 PCR NOT DETECTED Nasal Parainfluen 2 PCR NOT DETECTED Nasal Parainfluen 3 PCR NOT DETECTED Nasal Parainfluen 4 PCR NOT DETECTED Nasal RSV (PCR) NOT DETECTED Nasal B.pertussis DNA PCR NOT DETECTED Nasal C.pneumoniae (PCR) NOT DETECTED Joseph Human Metapneumo PCR DETECTED A Nasal M.pneumoniae (PCR) NOT DETECTED Nasal SARS-CoV-2 (PCR) NOT DETECTED PD Medical Decision Making - ED course Complexity details: reviewed results, re-evaluated patient, considered differential, d/w patient ED course: This is a 67-year-old female with a past medical history of COPD who presented with viral symptoms for the last couple of days after known exposure to her grandchild who has cold symptoms. She is stable appearing on physical exam, had received a DuoNeb prior to arrival and is oxygenating well on her baseline 2 L. She declines any additional breathing medication. Her chest x-ray shows no acute infiltrates And her viral panel is significant for human metapneumovirus. This is likely the cause of her symptoms Along with exacerbation of her COPD. She appears stable and I think okay for discharge home but I am going to give her a course of doxycycline though she has a viral illness, she does have signs of a mild COPD exacerbation. The patient should continue regular inhalers at home, and adhere to a bland diet and stay well-hydrated. Return precautions re viewed if worsening symptoms or other new concerns. Departure - Departure Disposition: Home, Self Care Clinical Impression: COPD exacerbation Upper respiratory tract infection Qualifiers: URI type: unspecified viral URI Qualified Code(s): J06.9 - Acute upper respiratory infection, unspecified Condition: Good Instructions: ED COPD Flare Prescriptions: predniSONE [Deltasone] 10 mg PO [id number] #42 tab Doxycycline [Vibramycin] 100 mg PO BID #14 tablet Comments: You have a viral illness that you likely got from your grandchild. This has caused an exacerbation And your chronic COPD symptoms. Though you have a virus, due to your COPD exacerbation, I am going to prescribe a short course of antibiotics. You should continue your inhalers as prescribed at home and you may take Tylenol as needed for body aches. Try to stay well-hydrated, and eat a bland diet until your stomach discomfort improves. Return to the ER if you have new or worsening symptoms.
[2022-09-05 18:13] VITALS: BP 128/68
== END 2022-09-05 18:37 | disposition home or self-care (01) ==
LOC: EDUNIT# → EDSEX → ED 15:46
DX: J06.9 Acute upper respiratory infection, unspecified (principal); B97.81 Human metapneumovirus as the cause of diseases classified elsewhere; J44.1 Chronic obstructive pulmonary disease with (acute) exacerbation; Z99.81 Dependence on supplemental oxygen; Z66 Do not resuscitate; Z20.822 Contact with and (suspected) exposure to COVID-19
CPT/HCPCS: 87633; 99283; 99284

== ENCOUNTER 2022-11-25 18:04 | Outpatient (CLI) | payer MEDICARE | END 2022-11-25 23:59 | disposition EMS.NT | LOC: EMS 18:04 | DX: I10 Essential (primary) hypertension (principal) ==

== ENCOUNTER 2023-06-10 00:04 | Outpatient (CLI) | payer MEDICARE, OTHER | END 2023-06-10 00:05 | disposition critical access hospital (66) | LOC: EMS 00:04 | DX: R06.02 Shortness of breath (principal); R09.89 Other specified symptoms and signs involving the circulatory and respiratory systems; R19.7 Diarrhea, unspecified; R11.0 Nausea; R51.9 Headache, unspecified; Z99.81 Dependence on supplemental oxygen | CPT/HCPCS: A0425; A0427 ==

== ENCOUNTER 2023-06-10 00:43 | Emergency (ER) | payer MEDICARE, OTHER ==
--- NOTE | 2023-06-10 00:42 | ED Physician Documentation ---
PD HPI DYSPNEA - Stated complaint Stated Complaint: SOA - History obtained from History obtained from: Patient, EMS - Additional information Additional information: BIBA. HPI from patient, EMS. 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 Dyspnea is exacerbated with exertion, and tonight is exacerbated with any movement. She also notes anterior chest pressure that also started earlier this evening. Patient denies fever. She says she was not having a cough but developed a nonproductive cough on route to the ED. The patient's past medical history includes COPD and she uses 3 L nasal cannula oxygen. The patient used one of her albuterol nebulizer treatments at home without improvement, and EMS administered 2 DuoNebs en route. Review of Systems Constitutional: denies: Fever, Chills, Sweats Cardiac: reports: Chest pain / pressure. denies: Palpitations, Pedal edema, Calf pain Respiratory: reports: Dyspnea, Cough. denies: Hemoptysis, Wheezing GI: reports: Reviewed and negative Musculoskeletal: reports: Back pain (chronic) Psychiatric: reports: Anxiety PD PAST MEDICAL HISTORY - Past Medical History Past Medical History: Yes Cardiovascular: Hypertension Respiratory: COPD - Present Medications Home Medications: Ambulatory Orders Medication Instructions Recorded Confirmed Albuterol Sulfate [Albuterol 1 - 2 puffs INH Q4HR 12/05/18 06/10/23 Sulfate Hfa] lisinopriL [Zestril] 20 mg PO DAILY #30 tab 08/01/22 06/10/23 LORazepam [Ativan] 0.5 - 1 mg PO QPM PRN 06/10/23 06/10/23 Oxycodone HCl 15 mg PO Q6HR 06/10/23 06/10/23 - Allergies Allergies/Adverse Reactions: Allergies Allergy/AdvReac Type Severity Reaction Status Date / Time codeine Allergy Unknown Verified 06/10/23 01:03 PDT morphine Allergy Unknown Verified 06/10/23 01:03 PDT Sulfa (Sulfonamide Allergy Unknown Verified 06/10/23 01:03 PDT Antibiotics) PD ED PE NORMAL - Vitals Vital signs reviewed: Yes - General General: Alert and oriented X 3, Other (underweight female in moderate respiratory distress, speaking in parsed sentences (2-3 words at a time)) - Neck Neck: No JVD - Abdomen Abdomen: Soft, Non tender - Derm Derm: Normal color, Warm and dry - Extremities Extremities: No edema - Neuro Neuro: Alert and oriented X 3 PD ED PE EXPANDED - Cardiac Cardiac: Tachy, Regular Rhythm - Respiratory Respiratory: Distress, Wheezing (diffuse inspiratory and expiratory wheezing all lung becerra), Decreased breath sounds Results - Vitals Vitals: Vital Signs - 24 hr 06/10/23 06/10/23 06/10/23 00:45 01:10 PDT 01:38 PDT Temperature 36.7 C Heart Rate 115 H 113 H 98 Respiratory 28 H 28 H 21 Rate Blood Pressure 202/127 H 182/119 H 169/102 H O2 Saturation 97 97 99 If not protocol 3 2 : Oxygen Flow, liters/minute 06/10/23 06/10/23 06/10/23 01:30 PST 02:00 03:09 Temperature Heart Rate 106 H 105 H 112 H Respiratory 18 22 23 Rate Blood Pressure 161/106 H 180/119 H 152/93 H O2 Saturation 100 100 98 If not protocol 3 3 3 : Oxygen Flow, liters/minute 06/10/23 06/10/23 06/10/23 03:25 03:50 03:55 Temperature 36.5 C Heart Rate 111 H 114 H 115 H Respiratory 18 25 H 22 Rate Blood Pressure 152/93 H 168/106 H O2 Saturation 99 100 If not protocol 3 3 3 : Oxygen Flow, liters/minute 06/10/23 06/10/23 06/10/23 04:18 05:20 05:39 Temperature 36.4 C L Heart Rate 111 H 114 H 118 H Respiratory 16 17 20 Rate Blood Pressure 155/97 H 161/97 H 177/99 H O2 Saturation 99 95 96 If not protocol 3 3 3 : Oxygen Flow, liters/minute 06/10/23 06:45 Temperature 36.3 C L Heart Rate 111 H Respiratory 20 Rate Blood Pressure 175/109 H O2 Saturation 98 If not protocol 3 : Oxygen Flow, liters/minute Oxygen O2 Source Nasal cannula Oxygen Flow Rate 2 - EKG (time done) No standard instances EKG releavant findings:: EKG personally interpreted by author of this note. Relevant findings are: Rate: Rate (enter#) (109) Rhythm: Sinus tachycardia, LAE, KEYANNA [place]: Normal Intervals: Normal ND QRS: LVH Ischemia: Normal ST segments Computer interpretation: Disagree with computer (no ST elevation(s)) - Labs Labs: Laboratory Tests 06/10/23 06/10/23 06/10/23 01:04 PST 01:07 PST 01:12 PST WBC 8.0 RBC 4.66 Hgb 13.3 Hct 42.2 MCV 90.6 MCH 28.5 MCHC 31.5 L RDW 13.6 Plt Count 244 MPV 9.9 Neut # (Auto) 6.2 Lymph # (Auto) 1.0 L [place] # (Auto) 0.5 Eos # (Auto) 0.3 Baso # (Auto) 0.1 Absolute Nucleated RBC 0.00 Nucleated RBC % 0.0 PT INR APTT Sodium Potassium Chloride Carbon Dioxide Anion Gap BUN Creatinine Estimated GFR (MDRD) Glucose Calcium Total Bilirubin AST ALT Alkaline Phosphatase Troponin I High Sens Total Protein Albumin Globulin Albumin/Globulin Ratio Lipase Urine Color YELLOW Urine Clarity CLEAR Urine pH 7.0 Ur Specific [place] 1.020 Urine Protein 30 H Urine Glucose (UA) NEGATIVE Urine Ketones TRACE Urine Occult Blood NEGATIVE Urine Nitrite NEGATIVE Urine Bilirubin NEGATIVE Urine Urobilinogen 0.2 (NORMAL) Ur Leukocyte Esterase NEGATIVE Urine RBC 0-5 Urine WBC 0-3 Ur Squamous Epith Cells RARE Squamous Urine Bacteria Rare Ur Microscopic Review INDICATED Urine Culture Comments NOT INDICATED Nasal Adenovirus (PCR) NOT DETECTED Nasal B. parapertussis DNA (PCR) NOT DETECTED Nasal Coronavir 229E PCR NOT DETECTED Nasal Coronavir HKU1 PCR NOT DETECTED Nasal Coronavir NL63 PCR NOT DETECTED Nasal Coronavir OC43 PCR NOT DETECTED Nasal Enterovir/Rhinovir PCR NOT DETECTED Nasal Influenza B PCR NOT DETECTED Nasal Influenza A PCR NOT DETECTED Nasal Parainfluen 1 PCR NOT DETECTED Nasal Parainfluen 2 PCR NOT DETECTED Nasal Parainfluen 3 PCR NOT DETECTED Nasal Parainfluen 4 PCR NOT DETECTED Nasal RSV (PCR) NOT DETECTED Nasal B.pertussis DNA PCR NOT DETECTED Nasal C.pneumoniae (PCR) NOT DETECTED Joseph Human Metapneumo PCR NOT DETECTED Nasal M.pneumoniae (PCR) NOT DETECTED Nasal SARS-CoV-2 (PCR) NOT DETECTED 06/10/23 06/10/23 06/10/23 01:12 PST 01:12 PST 02:25 WBC RBC Hgb Hct MCV MCH MCHC RDW Plt Count MPV Neut # (Auto) Lymph # (Auto) [place] # (Auto) Eos # (Auto) Baso # (Auto) Absolute Nucleated RBC Nucleated RBC % PT INR APTT Sodium 137 Potassium 3.5 Chloride 100 L Carbon Dioxide 29 Anion Gap 8.0 BUN 12 Creatinine 0.5 L Estimated GFR (MDRD) 123 Glucose 109 H Calcium 9.5 Total Bilirubin 1.5 H AST 20 ALT 15 Alkaline Phosphatase 60 Troponin I High Sens 35.1 H* 168.6 H* Total Protein 7.0 Albumin 4.4 Globulin 2.6 Albumin/Globulin Ratio 1.7 Lipase 16 Urine Color Urine Clarity Urine pH Ur Specific [place] Urine Protein Urine Glucose (UA) Urine Ketones Urine Occult Blood Urine Nitrite Urine Bilirubin Urine Urobilinogen Ur Leukocyte Esterase Urine RBC Urine WBC Ur Squamous Epith Cells Urine Bacteria Ur Microscopic Review Urine Culture Comments Nasal Adenovirus (PCR) Nasal B. parapertussis DNA (PCR) Nasal Coronavir 229E PCR Nasal Coronavir HKU1 PCR Nasal Coronavir NL63 PCR Nasal Coronavir OC43 PCR Nasal Enterovir/Rhinovir PCR Nasal Influenza B PCR Nasal Influenza A PCR Nasal Parainfluen 1 PCR Nasal Parainfluen 2 PCR Nasal Parainfluen 3 PCR Nasal Parainfluen 4 PCR Nasal RSV (PCR) Nasal B.pertussis DNA PCR Nasal C.pneumoniae (PCR) Joseph Human Metapneumo PCR Nasal M.pneumoniae (PCR) Nasal SARS-CoV-2 (PCR) 06/10/23 06/10/23 05:20 07:26 WBC RBC Hgb Hct MCV MCH MCHC RDW Plt Count MPV Neut # (Auto) Lymph # (Auto) [place] # (Auto) Eos # (Auto) Baso # (Auto) Absolute Nucleated RBC Nucleated RBC % PT 13.2 H INR 1.2 APTT > 240.0 H* 82.0 H Sodium Potassium Chloride Carbon Dioxide Anion Gap BUN Creatinine Estimated GFR (MDRD) Glucose Calcium Total Bilirubin AST ALT Alkaline Phosphatase Troponin I High Sens Total Protein Albumin Globulin Albumin/Globulin Ratio Lipase Urine Color Urine Clarity Urine pH Ur Specific [place] Urine Protein Urine Glucose (UA) Urine Ketones Urine Occult Blood Urine Nitrite Urine Bilirubin Urine Urobilinogen Ur Leukocyte Esterase Urine RBC Urine WBC Ur Squamous Epith Cells Urine Bacteria Ur Microscopic Review Urine Culture Comments Nasal Adenovirus (PCR) Nasal B. parapertussis DNA (PCR) Nasal Coronavir 229E PCR Nasal Coronavir HKU1 PCR Nasal Coronavir NL63 PCR Nasal Coronavir OC43 PCR Nasal Enterovir/Rhinovir PCR Nasal Influenza B PCR Nasal Influenza A PCR Nasal Parainfluen 1 PCR Nasal Parainfluen 2 PCR Nasal Parainfluen 3 PCR Nasal Parainfluen 4 PCR Nasal RSV (PCR) Nasal B.pertussis DNA PCR Nasal C.pneumoniae (PCR) Joseph Human Metapneumo PCR Nasal M.pneumoniae (PCR) Nasal SARS-CoV-2 (PCR) - Rads (name of study) chest xray Relevant Findings:: Prelim report reviewed, See rad report PD Medical Decision Making - ED course Complexity details: reviewed results, re-evaluated patient, considered differential, d/w patient ED course: Patient presents by ambulance in significant respiratory distress. Suspected etiology is COPD exacerbation. She is given 125 mg Solu-Medrol IV. She has already received 3 DuoNebs prior to arrival, but later in ED stay she is given another albuterol neb. She is also complaining of chest pressure and although there are no findings on EKG to suggest ACS, her high-sensitivity troponin is slightly elevated (35.1). A 2-hour repeat is 168.6. This raises the question of whether these lab abnormalities represent demand ischemia versus ACS as the primary event which, in turn, is exacerbating patient's dyspnea. 1 inch of NTG paste is placed on the anterior chest wall, she is given 325 mg of aspirin p.o., and a heparin drip (cardiac protocol) is initiated. I discussed this case with Dr. Hawkins (hospitalist at [facility] in [place]); she accepts the patient for transfer to [facility]. Although no beds are available at the time of the conversation I had with Dr. Hawkins, the transfer center coordinator indicates that there is a high likelihood that a bed will be available later this morning, as they are not holding a particularly large number of patients for beds at this time. Care of patient is turned over to oncoming ED physician (Dr. Gibbs) at end of my shift pending bed availability at [facility]. Departure - Departure Disposition: 02 Transfer Acute Care Hosp Clinical Impression: COPD with acute exacerbation, NSTEMI (non-ST elevated myocardial infarction) Condition: Stable Forms: PCP List
[2023-06-10] MEDS ORDERED: methylPREDNISolone SUCCINATE 125 MG/2 ML VIAL IVP STA (00:59)
[2023-06-10 01:07] LABS: ALBUMIN 4.4 g/dL (3.2-5.5); ALBUMIN/GLOBULIN RATIO 1.7 (1.0-2.2); BILIRUBIN,TOTAL 1.5 mg/dL (0.2-1.0); CALCIUM 9.5 mg/dL (8.5-10.3); CREATININE 0.5 mg/dL (0.6-1.3); POTASSIUM 3.5 mmol/L (3.5-4.5)
[2023-06-10 01:16] LABS: BASOPHILS # (AUTO) 0.1 10^3/uL (0.0-0.1); BASOPHILS % (AUTO) 0.6 %; EOSINOPHILS # (AUTO) 0.3 10^3/uL (0.0-0.7); EOSINOPHILS % (AUTO) 3.4 %; HCT - HEMATOCRIT 42.2 % (37.0-47.0); HGB - HEMOGLOBIN 13.3 g/dL (12.0-16.0); LYMPHOCYTES % (AUTO) 12.6 %; MEAN CORPUSCULAR HEMOGLOBIN 28.5 pg (27.0-31.0); MEAN CORPUSCULAR HGB CONC 31.5 g/dL (32.0-36.0); MEAN CORPUSCULAR VOLUME 90.6 fL (81.0-99.0); MEAN PLATELET VOLUME 9.9 fL (7.9-10.8); MONOCYTES # (AUTO) 0.5 10^3/uL (0.0-1.0); NEUTROPHILS # (AUTO) 6.2 10^3/uL (1.5-6.6); NEUTROPHILS % (AUTO) 77.2 %; PLT - PLATELET COUNT 244 10^3/uL (130-450); RED BLOOD COUNT 4.66 10^6/uL (4.20-5.40); RED CELL DISTRIBUTION WIDTH 13.6 % (12.0-15.0)
[2023-06-10 01:21] LABS: BILIRUBIN,URINE NEGATIVE (NEGATIVE); GLUCOSE, URINE (UA) NEGATIVE (NEGATIVE); KETONES,URINE (UA) TRACE mg/dL (NEGATIVE); LEUKOCYTE ESTERASE, URINE NEGATIVE (NEGATIVE); NITRITE,URINE NEGATIVE (NEGATIVE); OCCULT BLOOD,URINE NEGATIVE (NEGATIVE); PROTEIN,URINE 30 mg/dL (NEGATIVE); UROBILINOGEN,URINE 0.2 (NORMAL) E.U./dL (NORMAL)
[2023-06-10 01:25] LABS: CORONAVIRUS 229E-RESP PCR NOT DETECTED; CORONAVIRUS HKU1-RESP PCR NOT DETECTED; CORONAVIRUS NL63-RESP PCR NOT DETECTED; CORONAVIRUS OC43-RESP PCR NOT DETECTED; HUMAN METAPNEUMOVIRUS NOT DETECTED; INFLUENZA A- RESP PCR PANEL NOT DETECTED; RHINOVIRUS/ENTEROVIRUS NOT DETECTED; SARS-CoV-2 -RESP PCR PANEL NOT DETECTED
[2023-06-10 01:26] LABS: B. PARAPERTUSSIS- RESP PCR PAN NOT DETECTED; B. PERTUSSIS- RESP PCR PANEL NOT DETECTED; C. PNEUMONIAE- RESP PCR PANEL NOT DETECTED; INFLUENZA B - RESP PCR PANEL NOT DETECTED; M. PNEUMONIAE- RESP PCR PANEL NOT DETECTED; PARAINFLUENZA VIRUS 1 NOT DETECTED; PARAINFLUENZA VIRUS 2 NOT DETECTED; PARAINFLUENZA VIRUS 3 NOT DETECTED; PARAINFLUENZA VIRUS 4 NOT DETECTED; RSV- RESP PCR PANEL NOT DETECTED
[2023-06-10 01:27] LABS: CLARITY,URINE CLEAR (CLEAR)
[2023-06-10 01:34] LABS: WBC,URINE 0-3 /HPF (0-5)
[2023-06-10 01:35] LABS: BACTERIA,URINE Rare /HPF (None Seen); RBC,URINE 0-5 /HPF (0-5); SQUAMOUS EPITHELIAL CELL,UR RARE Squamous (<= Few)
--- NOTE | 2023-06-10 01:51 | XRAY Report ---
PROCEDURE: Chest 1 View X-Ray INDICATIONS: dyspnea TECHNIQUE: One view of the chest was acquired. COMPARISON: Prior chest plain films 09/05/2022 and 07/25/2022. FINDINGS: Surgical changes and devices: None. Lungs and pleura: No pleural effusions or pneumothorax. Lungs are abnormal with pulmonary hyperexpa nsion and what appears to be severe emphysematous change. Mediastinum: Mediastinal contours appear normal. Heart size is normal. Bones and chest wall: No suspicious bony lesions. Overlying soft tissues appear unremarkable. IMPRESSION: No pneumonia or neoplasm found. Pulmonary hyperexpansion and what appears to be severe centrilobular emphysematous change is noted. No pneumothorax. Reviewed by: Sharad Aaron MD on 06/10/2023 1:50 AM [facility] Approved by: Sharad Aaron MD on 06/10/2023 1:50 AM [facility] Station ID: [id number]
[2023-06-10] MEDS ORDERED: ACETAMINOPHEN 325 MG TABLET PO STA ×2 (02:12→14:13)
[2023-06-10] MEDS ORDERED: ALBUTEROL NEB 2.5 MG/3 ML INH STA ×2 (03:47→12:20)
[2023-06-10] MEDS ORDERED: NITROGLYCERIN 2% PASTE TOP STA (03:47)
[2023-06-10] MEDS ORDERED: ASPIRIN CHEW 81 MG TABLET PO STA (04:42)
[2023-06-10] MEDS ORDERED: HEPARIN 25000UNITS/500ML (D5W) 25,000 UNIT/500 ML BAG IV SCH (05:00)
[2023-06-10] MEDS ORDERED: LORazepam 2 MG/ML VIAL IVP STA (05:25)
[2023-06-10 05:43] LABS: INR 1.2 (0.8-1.2); PT - PROTHROMBIN TIME 13.2 secs (9.9-12.6)
[2023-06-10 06:53] LABS: PARTIAL THROMBOPLASTIN TIME > 240.0 secs (24.9-33.3)
[2023-06-10] MEDS ORDERED: ONDANSETRON 4 MG/2 ML VIAL IVP PRN (09:29)
[2023-06-10] MEDS ORDERED: ACETAMINOPHEN 500 MG TABLET PO PRN (09:29)
[2023-06-10] MEDS ORDERED: METOPROLOL TARTRATE 25 MG TABLET PO SCH (10:00)
--- NOTE | 2023-06-10 12:26 | ED Physician Documentation ---
ED Addendum - Addendum Addendum: Patient signed out to me by Dr. Nesbitt at shift change. She is awaiting transfer to [facility] for treatment of an NSTEMI. There apparently was a mixup this morning in regards to her insurance and she was excepted by a [place] doctor at [facility] but as it turns out her [place] is not currently active. Patient resting comfortably.No current chest pain. 1249 - Discussed with [facility] front desk receptionist, Dr. Salazar who agrees to consult on the patient. 1301 - Discussed with the [facility] hospitalist Dr. Shipman who agrees to accept the patient for transfer. Patient was updated regarding the plan of care and is in agreement. Request that I speak to her also to update him. Patient is reporting having a headache. Will give a dose of Tylenol. 06/10/23 14:14 D/W pt's Jeffrey and updated with plan including transfer. Departure - Departure Disposition: 02 Transfer Acute Care Hosp Clinical Impression: COPD with acute exacerbation, NSTEMI (non-ST elevated myocardial infarction) Condition: Stable Forms: PCP List
[2023-06-10 14:04] VITALS: O2SAT 98
[2023-06-10 15:50] VITALS: BP 158/96
[2023-06-10] MEDS ORDERED: ATORVASTATIN 40 MG TABLET PO SCH (21:00)
[2023-06-11] MEDS ORDERED: PANTOPRAZOLE 40 MG TABLET PO SCH (07:00)
[2023-06-11] MEDS ORDERED: ASPIRIN CHEW 81 MG TABLET PO SCH (09:00)
== END 2023-06-10 16:03 | disposition short-term general hospital (02) ==
LOC: EDUNIT# → ED 00:43
DX: I21.4 Non-ST elevation (NSTEMI) myocardial infarction (principal); J44.1 Chronic obstructive pulmonary disease with (acute) exacerbation; R51.9 Headache, unspecified; I10 Essential (primary) hypertension; Z20.822 Contact with and (suspected) exposure to COVID-19; Z79.899 Other long term (current) drug therapy
CPT/HCPCS: 36415; 71045; 80053; 81001; 83690; 84484; 85025; 85610; 85730; 87633; 93005; 94640; 96374; 96375; 99285; A9270; J2060; 81003; 87086

== ENCOUNTER 2023-07-19 10:47 | Outpatient (CLI) | payer SELFPAY | END 2023-07-19 10:48 | disposition critical access hospital (66) | LOC: EMS 10:47 | DX: R11.2 Nausea with vomiting, unspecified (principal); R19.7 Diarrhea, unspecified; R53.1 Weakness | CPT/HCPCS: A0425; A0427 ==

== ENCOUNTER 2023-07-19 11:26 | Emergency (ER) | payer SELFPAY ==
--- NOTE | 2023-07-19 11:48 | ED Physician Documentation ---
PD HPI CHEST PAIN - Stated complaint Stated Complaint: NEAR SYNCOPE/NVD - Chief complaint Chief Complaint: Abd Pain - History obtained from History obtained from: Patient, EMS - Additional information Additional information: 68-year-old woman with history of oxygen dependent COPD on 4 L of oxygen at baseline. Was here at the beginning of June and had a non-STEMI and was sent to [place] and received cardiac stenting. Last year she had a hemorrhagic stroke. She started to feel off yesterday and today she had nausea with an episode of vomiting and several episodes of diarrhea although she feels that its gone. She had some chest tightness with it and more shortness of breath than her usual. She denies chest pain per se. No pedal edema or calf pain. She received Zofran on the way here and her nausea is gone. 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 HEENT: Chronic vision loss Psych: Depression, Anxiety Musculoskeletal: Chronic back pain Derm: None - Past Surgical History Past Surgical History: Yes General: Cholecystectomy, Appendectomy, Gastric surgery, Colonoscopy, EGD Ortho: Spine surgery /BUTTER WRAPPER: Hysterectomy HEENT: Tonsil/Adenoidectomy - Present Medications Home Medications: Ambulatory Orders Medication Instructions Recorded Confirmed Albuterol Sulfate [Albuterol 1 - 2 puffs INH Q4HR 12/05/18 06/10/23 Sulfate Hfa] lisinopriL [Zestril] 20 mg PO DAILY #30 tab 08/01/22 06/10/23 LORazepam [Ativan] 0.5 - 1 mg PO QPM PRN 06/10/23 06/10/23 Oxycodone HCl 15 mg PO Q6HR 06/10/23 06/10/23 Ondansetron Odt [Zofran] 4 mg TL Q6H PRN #10 tablet 07/19/23 - Allergies Allergies/Adverse Reactions: Allergies Allergy/AdvReac Type Severity Reaction Status Date / Time codeine Allergy Unknown Verified 06/10/23 01:03 PDT morphine Allergy Unknown Verified 06/10/23 01:03 PDT Sulfa (Sulfonamide Allergy Unknown Verified 06/10/23 01:03 PDT Antibiotics) - Social History Does the pt smoke?: No Smoking Status: Never smoker Does the pt drink ETOH?: No Does the pt have substance abuse?: No - Immunizations Immunizations are current?: Yes - POLST Patient has POLST: No POLST Status: DNR PD ED PE NORMAL - Vitals Vital signs reviewed: Yes - General General: Alert and oriented X 3, Other (Thin woman in no distress.) - HEENT HEENT: PERRL, EOMI, Pharynx benign - Neck Neck: Supple, no meningeal sign - Cardiac Cardiac: RRR, No murmur - Respiratory Respiratory: No respiratory distress, Other (Diminished throughout) - Abdomen Abdomen: Non tender - Extremities Extremities: No edema, No calf tenderness / cord - Neuro Neuro: Alert and oriented X 3, Normal speech Results - Vitals Vitals: Vital Signs - 24 hr 07/19/23 07/19/23 11:34 12:00 Temperature 36.1 C L Heart Rate 72 69 Respiratory 18 18 Rate Blood Pressure 151/94 H 141/85 H O2 Saturation 95 96 If not protocol 2 : Oxygen Flow, liters/minute Oxygen O2 Source Nasal cannula - EKG (time done) 1207 EKG releavant findings:: EKG personally interpreted by author of this note. Relevant findings are: Rate: Rate (enter#) (81) Rhythm: NSR, LAE [place]: Normal Intervals: Normal HI QRS: Normal Ischemia: Normal ST segments - Labs Labs: Laboratory Tests 07/19/23 07/19/23 11:55 11:55 WBC 6.8 RBC 4.39 Hgb 12.7 Hct 38.0 MCV 86.6 MCH 28.9 MCHC 33.4 RDW 13.1 Plt Count 188 MPV 9.7 Neut # (Auto) 4.9 Lymph # (Auto) 1.1 L [place] # (Auto) 0.5 Eos # (Auto) 0.2 Baso # (Auto) 0.0 Absolute Nucleated RBC 0.00 Nucleated RBC % 0.0 Sodium 138 Potassium 3.2 L Chloride 99 L Carbon Dioxide 35 H Anion Gap 4.0 L BUN 9 Creatinine 0.5 L Estimated GFR (MDRD) 123 Glucose 113 H Calcium 9.5 Total Bilirubin 2.0 H AST 16 ALT 11 Alkaline Phosphatase 61 Troponin I High Sens 4.6 Total Protein 6.3 L Albumin 4.0 Globulin 2.3 Albumin/Globulin Ratio 1.7 Lipase 17 - Rads (name of study) Single view chest x-ray shows COPD without acute disease. Relevant Findings:: Final report received, EMP independent interpretation of test PD Medical Decision Making - ED course ED course: 68-year-old woman with multiple comorbidities and bad COPD has developed vomiting and diarrhea today, but she also has ancillary complaints of chest pressure and increased over baseline shortness of breath. EKG is nonischemic. Chest x-ray without acute findings. CBC normal. CMP notable for mild hypokalemia which is repleted orally, elevated bicarb likely from chronic CO2 retention, normal renal function, mild elevation in bilirubin which is a chronic phenomenon looking at prior labs. She declined further medications for her symptoms and seems stable for discharge. Departure - Departure Disposition: 01 Home, Self Care Clinical Impression: Gastroenteritis Condition: Good Record reviewed to determine appropriate education?: Yes Instructions: ED Gastroenteritis Viral Prescriptions: Ondansetron Odt [Zofran] 4 mg TL Q6H PRN #10 tablet PRN Reason: Nausea / Vomiting Comments: Thankfully no evidence of a worsening of your heart or lung disease. Seeming more like a viral stomach bug. I am prescribing some medication for nausea, the same medication that EMS gave you in case the nausea comes back. Call your doctor to arrange a follow-up appointment, make the next available appointment. In the interim, return anytime if worse or if new symptoms develop. Forms: PCP List
[2023-07-19 11:59] LABS: BASOPHILS % (AUTO) 0.6 %; EOSINOPHILS # (AUTO) 0.2 10^3/uL (0.0-0.7); EOSINOPHILS % (AUTO) 3.5 %; HGB - HEMOGLOBIN 12.7 g/dL (12.0-16.0); LYMPHOCYTES # (AUTO) 1.1 10^3/uL (1.5-3.5); LYMPHOCYTES % (AUTO) 15.8 %; MEAN CORPUSCULAR HEMOGLOBIN 28.9 pg (27.0-31.0); MEAN CORPUSCULAR HGB CONC 33.4 g/dL (32.0-36.0); MEAN CORPUSCULAR VOLUME 86.6 fL (81.0-99.0); MEAN PLATELET VOLUME 9.7 fL (7.9-10.8); MONOCYTES # (AUTO) 0.5 10^3/uL (0.0-1.0); NEUTROPHILS # (AUTO) 4.9 10^3/uL (1.5-6.6); PLT - PLATELET COUNT 188 10^3/uL (130-450); RED BLOOD COUNT 4.39 10^6/uL (4.20-5.40); RED CELL DISTRIBUTION WIDTH 13.1 % (12.0-15.0); WHITE BLOOD COUNT 6.8 x10^3/uL (4.8-10.8)
[2023-07-19 12:18] LABS: ALBUMIN/GLOBULIN RATIO 1.7 (1.0-2.2); CALCIUM 9.5 mg/dL (8.5-10.3); CREATININE 0.5 mg/dL (0.6-1.3); POTASSIUM 3.2 mmol/L (3.5-4.5); TOTAL PROTEIN 6.3 g/dL (6.4-8.9)
[2023-07-19 12:20] VITALS: BP 141/85
[2023-07-19 12:27] LABS: TROPONIN I HIGH SENSITIVITY 4.6 ng/L (2.3-14.8)
--- NOTE | 2023-07-19 12:30 | XRAY Report ---
PROCEDURE: Chest 1 View X-Ray INDICATIONS: CHEST PAIN TECHNIQUE: One view of the chest was acquired. COMPARISON: 06/10/2023. FINDINGS: Surgical changes and devices: None. Lungs and pleura: No pleural effusions or pneumothorax. There is hyperinflation. No focal infiltrate . Mediastinum: Mediastinal contours appear normal. Heart size is normal. Bones and chest wall: No suspicious bony lesions. Overlying soft tissues appear unremarkable. IMPRESSION: COPD. No acute cardiopulmonary pathology. Reviewed by: Rodo Carmichael MD on 07/19/2023 12:29 PM PST Approved by: Rodo Carmichael MD on 07/19/2023 12:29 PM PST Station ID: [id number]
[2023-07-19] MEDS ORDERED: POTASSIUM BICARB 25 MEQ TABLET PO STA (12:33)
[2023-07-19 14:48] VITALS: O2SAT 99
== END 2023-07-19 15:07 | disposition home or self-care (01) ==
LOC: EDUNIT# → ED 11:26
DX: K52.9 Noninfective gastroenteritis and colitis, unspecified (principal); J44.9 Chronic obstructive pulmonary disease, unspecified; I10 Essential (primary) hypertension; K50.90 Crohn's disease, unspecified, without complications; Z99.81 Dependence on supplemental oxygen; Z79.899 Other long term (current) drug therapy; Z66 Do not resuscitate
CPT/HCPCS: 36415; 71045; 80053; 83690; 84484; 85025; 93005; 99284; A9270

== ENCOUNTER 2023-09-27 11:44 | Outpatient (CLI) | payer SELFPAY | END 2023-09-27 23:59 | disposition critical access hospital (66) | LOC: EMS 11:44 | DX: R06.02 Shortness of breath (principal); M25.512 Pain in left shoulder; R42 Dizziness and giddiness; Z99.81 Dependence on supplemental oxygen | CPT/HCPCS: A0425; A0427 ==

== ENCOUNTER 2023-09-27 12:54 | Emergency (ER) | payer SELFPAY ==
[2023-09-27 13:37] LABS: BASOPHILS % (AUTO) 0.6 %; EOSINOPHILS # (AUTO) 0.1 10^3/uL (0.0-0.7); HCT - HEMATOCRIT 38.2 % (37.0-47.0); HGB - HEMOGLOBIN 12.1 g/dL (12.0-16.0); LYMPHOCYTES # (AUTO) 1.2 10^3/uL (1.5-3.5); LYMPHOCYTES % (AUTO) 24.1 %; MEAN CORPUSCULAR HEMOGLOBIN 28.9 pg (27.0-31.0); MEAN CORPUSCULAR HGB CONC 31.7 g/dL (32.0-36.0); MEAN CORPUSCULAR VOLUME 91.2 fL (81.0-99.0); MEAN PLATELET VOLUME 9.8 fL (7.9-10.8); MONOCYTES # (AUTO) 0.5 10^3/uL (0.0-1.0); MONOCYTES % (AUTO) 9.4 %; NEUTROPHILS # (AUTO) 3.3 10^3/uL (1.5-6.6); NEUTROPHILS % (AUTO) 64.9 %; PLT - PLATELET COUNT 210 10^3/uL (130-450); RED BLOOD COUNT 4.19 10^6/uL (4.20-5.40); RED CELL DISTRIBUTION WIDTH 13.2 % (12.0-15.0)
[2023-09-27 13:54] LABS: ALBUMIN 3.8 g/dL (3.2-5.5); ALBUMIN/GLOBULIN RATIO 1.6 (1.0-2.2); CALCIUM 9.4 mg/dL (8.5-10.3); CREATININE 0.6 mg/dL (0.6-1.3); MAGNESIUM 1.6 mg/dL (1.7-2.3); POTASSIUM 3.7 mmol/L (3.5-4.5); TOTAL PROTEIN 6.2 g/dL (6.4-8.9)
[2023-09-27 13:59] LABS: TROPONIN I HIGH SENSITIVITY 6.5 ng/L (2.3-14.8)
--- NOTE | 2023-09-27 14:35 | XRAY Report ---
PROCEDURE: Chest 2V INDICATIONS: chest pain TECHNIQUE: 2 views of the chest were acquired. COMPARISON: 07/19/2023 FINDINGS: Surgical changes and devices: None. Lungs and pleura: No pleural effusions or pneumothorax. Hyperexpanded lungs with flattening of the d iaphragm, most consistent with COPD. Lungs are clear. Mediastinum: Mediastinal contours appear normal. Heart size is normal. Bones and chest wall: No suspicious bony lesions. Overlying soft tissues appear unremarkable. IMPRESSION: No acute cardiopulmonary process. Reviewed by: dEd Vanegas MD on 09/27/2023 2:33 PM PST Approved by: Edd Vanegas MD on 09/27/2023 2:33 PM PST Station ID: [id number]
--- NOTE | 2023-09-27 15:00 | ED Physician Documentation ---
PD HPI CHEST PAIN - Stated complaint Stated Complaint: COPD/SOA/HIGH BP - Chief complaint Chief Complaint: Cardiac - Additional information Additional information: 68-year-old female with history of hypertension, end-stage COPD, cholecystecto my, appendectomy, hysterectomy, recent CT June 2023, and stroke in 2021. Patient says she was hospitalized at [facility] where she was started on multiple different cardiac medications as well as a blood thinner. Patient says she ran out of these medications, (it sounds like it was about a 3-month supply) and she is having a hard time getting back in with someone about get a refill of these medications. She has not been on any of her cardiac medications including her blood thinner for about a week or so now. She said that she woke up today with some left chest pain and crushing heaviness sensation. She is able to speak in full sentences no shortness of breath. She says the crushing sensation to her left chest has resolved and got better now but she said she was worried and wanted to have this checked out given her history no dizziness no nausea vomiting no vision changes. 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: Hysterectomy HEENT: Tonsil/Adenoidectomy - Present Medications Home Medications: Ambulatory Orders Medication Instructions Recorded Confirmed Albuterol Sulfate [Albuterol 1 - 2 puffs INH Q4HR 12/05/18 09/27/23 Sulfate Hfa] lisinopriL [Zestril] 20 mg PO DAILY #30 tab 08/01/22 09/27/23 LORazepam [Ativan] 0.5 - 1 mg PO QPM PRN 06/10/23 09/27/23 Oxycodone HCl 15 mg PO Q6HR 06/10/23 09/27/23 Ondansetron Odt [Zofran] 4 mg TL Q6H PRN #10 tablet 07/19/23 09/27/23 Atorvastatin [Lipitor] 40 mg PO QPM 30 Days #60 tablet 09/27/23 Clopidogrel Bisulfate [Plavix] 75 mg PO DAILY #30 tab 09/27/23 Pantoprazole Sodium [Protonix] 40 mg PO DAILY #30 cap 09/27/23 amLODIPine [Norvasc] 5 mg PO DAILY #30 tablet 09/27/23 carvediloL [Coreg] 12.5 mg PO BID 30 Days #60 tablet 09/27/23 - Allergies Allergies/Adverse Reactions: Allergies Allergy/AdvReac Type Severity Reaction Status Date / Time codeine Allergy Unknown Verified 09/27/23 13:05 morphine Allergy Unknown Verified 09/27/23 13:05 Sulfa (Sulfonamide Allergy Unknown Verified 09/27/23 13:05 Antibiotics) - Social History Does the pt smoke?: No Smoking Status: Never smoker Does the pt drink ETOH?: No ETOH Use: None Does the pt have substance abuse?: No - Immunizations Immunizations are current?: Yes - POLST Patient has POLST: No POLST Status: DNR PD ED PE NORMAL - Vitals Vital signs reviewed: Yes - General General: Alert and oriented X 3, Other (cachectic) - HEENT HEENT: Atraumatic - Cardiac Cardiac: RRR, No murmur, No gallop - Respiratory Respiratory: No respiratory distress, Clear bilaterally - Abdomen Abdomen: Normal bowel sounds, Soft, Non tender - Derm Derm: Normal color, Warm and dry, No rash - Extremities Extremities: No deformity, No tenderness to palpate, No edema, No calf tenderness / cord - Neuro Neuro: Alert and oriented X 3, front desk agent 2-12 intact, No motor deficit, Normal speech Eye Opening: Spontaneous Motor: Obeys Commands Verbal: Oriented GCS Score: 15 - Psych Psych: Normal mood Results - Vitals Vitals: Oxygen O2 Source Nasal cannula - EKG (time done) 1351 EKG releavant findings:: EKG personally interpreted by author of this note. Relevant findings are: Rate: Rate (enter#) (80) Rhythm: NSR [place]: Normal Intervals: Prolonged MT QRS: Normal Ischemia: Normal ST segments Computer interpretation: Agree with computer - Labs Labs: Laboratory Tests 09/27/23 09/27/23 09/27/23 13:33 13:33 15:14 WBC 5.0 RBC 4.19 L Hgb 12.1 Hct 38.2 MCV 91.2 MCH 28.9 MCHC 31.7 L RDW 13.2 Plt Count 210 MPV 9.8 Neut # (Auto) 3.3 Lymph # (Auto) 1.2 L [place] # (Auto) 0.5 Eos # (Auto) 0.1 Baso # (Auto) 0.0 Absolute Nucleated RBC 0.00 Nucleated RBC % 0.0 D-Dimer Sodium 139 Potassium 3.7 Chloride 99 L Carbon Dioxide 35 H Anion Gap 5.0 L BUN 19 Creatinine 0.6 Estimated GFR (MDRD) 100 Glucose 101 Calcium 9.4 Magnesium 1.6 L Total Bilirubin 2.0 H AST 16 ALT 14 Alkaline Phosphatase 56 Troponin I High Sens 6.5 7.1 Total Protein 6.2 L Albumin 3.8 Globulin 2.4 Albumin/Globulin Ratio 1.6 09/27/23 15:34 WBC RBC Hgb Hct MCV MCH MCHC RDW Plt Count MPV Neut # (Auto) Lymph # (Auto) [place] # (Auto) Eos # (Auto) Baso # (Auto) Absolute Nucleated RBC Nucleated RBC % D-Dimer 277.5 H Sodium Potassium Chloride Carbon Dioxide Anion Gap BUN Creatinine Estimated GFR (MDRD) Glucose Calcium Magnesium Total Bilirubin AST ALT Alkaline Phosphatase Troponin I High Sens Total Protein Albumin Globulin Albumin/Globulin Ratio - Rads (name of study) Chest x-ray Relevant Findings:: Final report received, EMP independent interpretation of test, Other (No acute cardiopulmonary process) CTA chest thorax Relevant Findings:: Final report received, EMP independent interpretation of test, Other (No pulmonary embolus, severe coronary artery calcifications,) PD Medical Decision Making - ED course ED course: Exam without evidence of volume overload so doubt heart failure. EKG without signs of active ischemia. Given the timing of pain to ER presentation, single delta troponin negative was so doubt NSTEMI. D-dimer barely elevated and although age adjusted it was WNL, out of an abundance of caution given pts hx a CT PE was complete and no pulmonary embolism, ,pneumothorax (not visualized on chest xr or CT), thoracic aortic dissection, pericarditis, tamponade, pneumonia (no infectious symptoms, clear chest xr), myocarditis (no recent illness, neg trop). Patient originally says on triage that she is mostly on blood thinner and has been on blood thinner for about a week now but when I was able to go through the medications that she is taking at home it was actually an antiplatelet, Plavix. Prescription refill was sent to patient's preferred pharmacy outpatient. 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 She is been having insurance issues so told her to make sure that she is persistent with making multiple phone calls to make sure she is able to get in with someone soon. Departure - Departure Disposition: Home, Self Care Clinical Impression: Angina at rest Instructions: ED Heart Disease Risk Factors Prescriptions: carvediloL [Coreg] 12.5 mg PO BID 30 Days #60 tablet Atorvastatin [Lipitor] 40 mg PO QPM 30 Days #60 tablet amLODIPine [Norvasc] 5 mg PO DAILY #30 tablet Clopidogrel Bisulfate [Plavix] 75 mg PO DAILY #30 tab Pantoprazole Sodium [Protonix] 40 mg PO DAILY #30 cap Comments: Thank you for trusting us with your care. And started having some issues with your insurance right now with figuring out your insurance card and Medicaid Medicare. I have sent a refill of your medications that we went over to [facility] in [place] to make sure that you pick these up this evening and start taking them as prescribed. Please make sure that you are able to have a cardiology appointment as soon as possible see if they are able to make an appointment with you despite having your insurance card figured out or not. Please come back to the emergency department if having any worsening chest pain, shortness of breath, nausea vomiting, or any other concerning symptoms that make you think you could be suffering from another heart attack. Forms: PCP List Discharge Date/Time: 09/27/23 18:54
[2023-09-27] MEDS ORDERED: iohexoL-300 100 ML VIAL ONE (16:33)
[2023-09-27] MEDS: iohexoL-300 100 ML VIAL IVP ONE (17:31)
--- NOTE | 2023-09-27 17:47 | CT Report ---
PROCEDURE: Angio Chest INDICATIONS: r/o PE CONTRAST: 80mL Omni 300 TECHNIQUE: After the administration of intravenous contrast, 2 mm axial images were acquired from the pulmonary apices to the posterior costophrenic angles during the arterial phase. In addition, 1 mm lung kernel and 5 mm soft tissue kernel reconstructions were performed. 3-dimensional coronal oblique maximum int ensity projection (MIP) reformats, 8 mm axial MIP, and 5 mm coronal and sagittal MPR reformats were t hen performed through the thorax. For radiation dose reduction, the following was used: automated exp osure control, adjustment of mA and/or kV according to patient size. COMPARISON: Same day chest x-ray. FINDINGS: Image quality: Excellent. Large vessels: No filling defects within the opacified pulmonary arteries, accounting for motion and contrast timing. No evidence of acute aortic syndrome or aortic aneurysm. Lungs and pleura: No consolidation. No pleural effusions. No pneumothorax. No suspicious pulmonary n odules which require follow up. Mild emphysematous changes. Linear atelectasis versus scarring withi n the right middle lobe with traction bronchiectasis. Triangular 3 mm nodule within the right middle lobe, likely an intrapulmonary lymph node.. Mediastinum: Heart size is normal. Severe coronary indications. Reflux of contrast into the IVC. No p ericardial effusion. No large vessel abnormality. Atherosclerotic vascular calcifications. No mediast inal adenopathy by size criteria. Chest wall and lower neck: Thyroid is not well seen. No axillary or supraclavicular adenopathy by siz e. Bones: No aggressive osseous abnormality. Partially visualized lumbar spinal hardware. Mild compressi on deformity of the T8 vertebral body, appears chronic without retropulsion. Mild degenerative change s of the thoracic spine. Decreased osseous mineralization. Upper Abdomen: Unremarkable. IMPRESSION: 1.No pulmonary embolus. 2.Reflux of contrast into the IVC. Correlate with right heart function. 3.Severe coronary artery calcifications. Reviewed by: Edd Vanegas MD on 09/27/2023 5:46 PM PST Approved by: Edd Vanegas MD on 09/27/2023 5:46 PM PST Station ID: [id number]
[2023-09-27 18:33] VITALS: BP 174/101; O2SAT 96
== END 2023-09-27 18:54 | disposition home or self-care (01) ==
LOC: EDBD → EDUNIT# → ED 12:54
DX: I20.9 Angina pectoris, unspecified (principal); I10 Essential (primary) hypertension; J44.9 Chronic obstructive pulmonary disease, unspecified; I25.2 Old myocardial infarction; K50.90 Crohn's disease, unspecified, without complications; Z86.73 Personal history of transient ischemic attack (TIA), and cerebral infarction without residual deficits; Z87.11 Personal history of peptic ulcer disease; Z86.010 Personal history of colon polyps; Z79.01 Long term (current) use of anticoagulants; Z79.02 Long term (current) use of antithrombotics/antiplatelets; Z79.899 Other long term (current) drug therapy; Z98.84 Bariatric surgery status
CPT/HCPCS: 36415; 71046; 71275; 80053; 83735; 84484; 85025; 85379; 93005; 99283; 99284; Q9967

== ENCOUNTER 2023-12-23 18:36 | Outpatient (CLI) | payer MEDICARE | END 2023-12-23 23:59 | disposition short-term general hospital (02) | LOC: EMS 18:36 | DX: R06.02 Shortness of breath (principal); R07.89 Other chest pain; J44.9 Chronic obstructive pulmonary disease, unspecified; Z99.81 Dependence on supplemental oxygen | CPT/HCPCS: A0425; A0427 ==

== ENCOUNTER 2024-02-05 13:18 | Outpatient (CLI) | payer MEDICARE ==
--- NOTE | 2024-02-05 20:20 | Ultrasound Report ---
PROCEDURE: Duplex Ext Veins Right INDICATIONS: R LEG PAIN TECHNIQUE: Real-time imaging, as well as color and pulse Doppler interrogation, were performed of th e lower extremity deep veins from the inguinal ligament to the popliteal fossa. Attempted visualizati on of the calf veins was performed. COMPARISON: None. FINDINGS: The deep veins are normally compressible, and free of intraluminal thrombus. Color and pu lse Doppler demonstrate normal phasic intraluminal flow. There is normal augmentation response to di stal compression maneuver. IMPRESSION: No deep venous thrombosis of the visualized lower extremity. Reviewed by: Jozef Capps MD on 02/05/2024 7:19 PM ANGEL Approved by: Jozef Capps MD on 02/05/2024 7:19 PM ANGEL Station ID: [id number]
== END 2024-02-05 13:19 | disposition home or self-care (01) ==
LOC: DI 13:18
DX: M79.604 Pain in right leg (principal); M79.89 Other specified soft tissue disorders; I47.10 Supraventricular tachycardia, unspecified

== ENCOUNTER 2025-06-12 09:51 | Inpatient (IN) ==
--- OUTSIDE RECORDS SUMMARY | 2025-06-12 10:04 | EXTERNAL MEDICAL SUMMARY RPT | Continuity of Care Document ---
Author Organization [facility] Address [address] [place] [id number] Phone Problems date description facility 2025-04-28 18:10 Chronic obstructive pulmonary disease with (acute) exacerbation [facility] 2025-04-28 18:10 Shortness of breath [facility] 2025-04-28 18:10 Other specified abnormal findin gs of blood [facility] 2025-04-29 07:44 [facility] pulmonary [facility] ([facility] 2025-04-29 07:44 Shortness [facility] breath [facility] 2025-04-29 07:44 Other specified abnormal findin gs of blood chemistry [facility] 2025-04-30 12:23 Chronic obstructive pulmonary disease with (acute) exacerbation [facility] 2025-04-30 12:23 Shortness of breath [facility] 2025-04-30 12:23 Chest pain, unspecified [facility] 2025-04-30 12:23 Other specified abnormal findin gs of blood chemistry [facility] 2025-05-11 10:08 Dyspnea, unspecified [facility] 2025-05-17 08:10 Chronic obstructive pulmonary disease with (acute) exacerbation [facility] 2025-05-17 11:19 Chronic obstructive pulmonary disease with (acute) exacerbation [facility] 2025-05-18 08:48 Chronic obstructive pulmonary disease with (acute) exacerbation [facility] 2025-05-19 13:26 Chronic obstructive pulmonary disease with (acute) exacerbation [facility] 2025-05-19 13:26 Dyspnea, unspecified [facility] 2025-05-19 13:26 Other chest [facility] 2025-05-21 10:15 Essential (primary) hypertensio n [facility] 2025-05-21 12:53 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 Testing performed on the [employer] RP2.1 Panel, a multiplexed nucleic acid repiratory panel. Negative results do not preclude infection with SARS-CoV-2 virus and should not be the sole basis of a patient management decision. In some patients repeat testing at various time points may be necessary for virus detection. False-negative results may arise from improper sample collection, degradation of viral RNA during shipping or storage, the presence of PCR inhibitors, and/or mutation in the SARS-CoV-2 virus. INFLUENZA A- RESP PCR PANEL 2025-04-28 14:55 [facility] NOT DETECTED (missing) Influenza A including subtypes H1, H3, and H1-2009 not detected by the [employer] RP2.1 Panel, a multiplexed nucleic acid test intended for the simultaneous qualitative detection and differentiation of nucleic acids from multiple viral and bacterial respiratory organisms. B. PARAPERTUSSIS- RESP PCR [place] 2025-04-28 14:55 [facility] NOT DETECTED (missing) Negative results for this organism do not preclude infection with this organism and may require additional laboratory testing (e.g., bacterial and viral culture, immunofluorescence, and radiography) when evaluating a patient with possible respiratory tract infection. B. PERTUSSIS- RESP PCR PANEL 2025-04-28 14:55 [facility] NOT DETECTED (missing) Negative results for this organism do not preclude infection with this organism and may require additional laboratory testing (e.g., bacterial and viral culture, immunofluorescence, and radiography) when evaluating a patient with possible respiratory tract infection. C. PNEUMONIAE- RESP PCR PANEL 2025-04-28 14:55 [facility] NOT DETECTED (missing) Negative results for this organism do not preclude infection with this organism and may require additional laboratory testing (e.g., bacterial and viral culture, immunofluorescence, and radiography) when evaluating a patient with possible respiratory tract infection. M. PNEUMONIAE- RESP PCR PANEL 2025-04-28 14:55 [facility] NOT DETECTED (missing) Negative results for this organism do not preclude infection with this organism and may require additional laboratory testing (e.g., bacterial and viral culture, immunofluorescence, and radiography) when evaluating a patient with possible respiratory tract infection. ADENOVIRUS - RESP PCR PANEL 2025-04-28 14:55 [facility] NOT DETECTED (missing) Negative results in the setting ofa respiratory illness may be due to infection with pathogens not detected by this test, or lower respiratory tract infection that may not be detected by nasopharyngeal specimen. CORONAVIRUS 229E-RESP PCR 2025-04-28 14:55 [facility] NOT DETECTED (missing) Negative results in the setting ofa respiratory illness may be due to infection with pathogens not detected by this test, or lower respiratory tract infection that may not be detected by nasopharyngeal specimen. CORONAVIRUS HKU1-RESP PCR 2025-04-28 14:55 [facility] NOT DETECTED (missing) Negative results in the setting ofa respiratory illness may be due to infection with pathogens not detected by this test, or lower respiratory tract infection that may not be detected by nasopharyngeal specimen. CORONAVIRUS [id number]-UZFD PCR 2025-04-28 14:55 [facility] NOT DETECTED (missing) Negative results in the setting ofa respiratory illness may be due to infection with pathogens not detected by this test, or lower respiratory tract infection that may not be detected by nasopharyngeal specimen. CORONAVIRUS GF42-VSAG PCR 2025-04-28 14:55 [facility] NOT DETECTED (missing) Negative results in the setting ofa respiratory illness may be due to infection with pathogens not detected by this test, or lower respiratory tract infection that may not be detected by nasopharyngeal specimen. HUMAN METAPNEUMOVIRUS 2025-04-28 14:55 [facility] NOT DETECTED (missing) Negative results in the setting ofa respiratory illness may be due to infection with pathogens not detected by this test, or lower respiratory tract infection that may not be detected by nasopharyngeal specimen. INFLUENZA B - RESP PCR PANEL 2025-04-28 14:55 [facility] NOT DETECTED (missing) Negative results in the setting ofa respiratory illness may be due to infection with pathogens not detected by this test, or lower respiratory tract infection that may not be detected by nasopharyngeal specimen. PARAINFLUENZA VIRUS 1 2025-04-28 14:55 [facility] NOT DETECTED (missing) Negative results in the setting ofa respiratory illness may be due to infection with pathogens not detected by this test, or lower respiratory tract infection that may not be detected by nasopharyngeal specimen. PARAINFLUENZA VIRUS 2 2025-04-28 14:55 [facility] NOT DETECTED (missing) Negative results in the setting ofa respiratory illness may be due to infection with pathogens not detected by this test, or lower respiratory tract infection that may not be detected by nasopharyngeal specimen. PARAINFLUENZA VIRUS 3 2025-04-28 14:55 [facility] NOT DETECTED (missing) Negative results in the setting ofa respiratory illness may be due to infection with pathogens not detected by this test, or lower respiratory tract infection that may not be detected by nasopharyngeal specimen. PARAINFLUENZA VIRUS 4 2025-04-28 14:55 [facility] NOT DETECTED (missing) Negative results in the setting ofa respiratory illness may be due to infection with pathogens not detected by this test, or lower respiratory tract infection that may not be detected by nasopharyngeal specimen. RHINOVIRUS/ENTEROVI LOUIS 2025-04-28 14:55 [facility] NOT DETECTED (missing) Negative results in the setting ofa respiratory illness may be due to infection with pathogens not detected by this test, or lower respiratory tract infection that may not be detected by nasopharyngeal specimen. RSV- RESP PCR PANEL 2025-04-28 14:55 [facility] NOT DETECTED (missing) Negative results in the setting ofa respiratory illness may be due to infection with pathogens not detected by this test, or lower respiratory tract infection that may not be detected by nasopharyngeal specimen. Result panel 2 NUCLEATED RED BLOOD CELLS AUTO 2025-04-28 15:04 [facility] 0.0 /100wbc (missing) BASOPHILS # (AUTO) 2025-04-28 15:04 [facility] 0.0 10 3/ul (missing) NRBC ABSOLUTE COUNT (AUTO) 2025-04-28 15:04 [facility] 0.00 x10 3/ul (missing) EOSINOPHILS # (AUTO) 2025-04-28 15:04 [facility] 0.2 10 3/ul (missing) MONOCYTES # (AUTO) 2025-04-28 15:04 [facility] 0.3 10 3/ul (missing) CREATININE 2025-04-28 15:04 [facility] 0.6 mg/dl As of February 2023 testing method has changed, this may include reference ranges. LYMPHOCYTES # (AUTO) 2025-04-28 15:04 [facility] 0.9 10 3/ul (missing) BILIRUBIN,TOTAL 2025-04-28 15:04 [facility] 1.6 mg/dl As of February 2023 testing method has changed, this may include reference ranges. ALBUMIN/GLOBULIN RATIO 2025-04-28 15:04 [facility] 1.7 (missing) (missing) GFR - MDRD 2025-04-28 15:04 [facility] 100 (missing) The IDMS-traceable MDRD Study Equation has been validated extensively in and populations between the ages of 18 and 70 with impaired kidney function (eGFR < 60 mL/min/1.73m2) and has shown good performance for patients with all common causes of kidney disease. Although this equation has not been validated for patients older than 70, an MDRD-derived eGFR may still be a useful tool for providers caring for patients older than 70. References: http://www.nkdep. nih.gov/lab-evalu ation/gfr/creatin ine-stand ardization, last updated October 2011. ALT ALANINE AMINOTRANSFERASE 2025-04-28 15:04 [facility] 11 iu/l As of February 2023 testing method has changed, this may include reference ranges. HGB - HEMOGLOBIN 2025-04-28 15:04 [facility] 11.9 g/dl (missing) GLUCOSE 2025-04-28 15:04 [facility] 113 mg/dl As of February 2023 testing method has changed, this may include reference ranges. RED CELL DISTRIBUTION WIDTH 2025-04-28 15:04 [facility] 13.0 % (missing) SODIUM 2025-04-28 15:04 [facility] 139 mmol/l (missing) AST ASPARTATE AMINOTRANSFERASE 2025-04-28 15:04 [facility] 14 iu/l As of February 2023 testing method has changed, this may include reference ranges. VBG BASE EXCESS 2025-04-28 15:04 [facility] 15.0 mmol/l (missing) TROPONIN I HIGH SENSITIVITY 2025-04-28 15:04 [facility] 17.8 ng/l Critical result TNI[facility] 17.8 pg/mL called to and read back by ED/DEV Bowen RN at 28-Apr-2025 15:43 by kimmie. A HIGH SENSITIVITY TROPONIN result of >= 14.9 ng/L for females is considered POSITIVE. A HIGH SENSITIVITY TROPONIN result of >= 19.8 ng/L for males is considered POSITIVE. A HIGH SENSITIVITY TROPONIN result of >= 17.9 ng/L for unspecified is considered POSITIVE. GLOBULIN 2025-04-28 15:04 [facility] 2.4 g/dl (missing) PLT - PLATELET COUNT 2025-04-28 15:04 [facility] 236 10 3/ul (missing) MEAN CORPUSCULAR HEMOGLOBIN 2025-04-28 15:04 [facility] 28.3 pg (missing) POTASSIUM 2025-04-28 15:04 [facility] 3.9 mmol/l As of February 2023 testing method has changed, this may include reference ranges. MEAN CORPUSCULAR HGB CONC 2025-04-28 15:04 [facility] 31.6 g/dl (missing) VBG PO2 2025-04-28 15:04 [facility] 33.8 mmhg (missing) CARBON DIOXIDE - CO2 2025-04-28 15:04 [facility] 37 mmol/l As of February 2023 testing method has changed, this may include reference ranges. HCT - HEMATOCRIT 2025-04-28 15:04 [facility] 37.7 % (missing) ANION GAP 2025-04-28 15:04 [facility] 4.0 (missing) (missing) ALBUMIN 2025-04-28 15:04 [facility] 4.1 g/dl As of February 2023 testing method has changed, this may include reference ranges. RED BLOOD COUNT 2025-04-28 15:04 [facility] 4.21 10 6/ul (missing) NEUTROPHILS # (AUTO) 2025-04-28 15:04 [facility] 4.8 10 3/ul (missing) VBG HCO3 2025-04-28 15:04 [facility] 40.2 mmol/l (missing) VBG TOTAL CO2 2025-04-28 15:04 [facility] 42.2 mmol/l (missing) VBG OXYGEN SATURATION 2025-04-28 15:04 [facility] 52.0 % (missing) WHITE BLOOD COUNT 2025-04-28 15:04 [facility] 6.2 x10 3/ul (missing) TOTAL PROTEIN 2025-04-28 15:04 [facility] 6.5 g/dl As of February 2023 testing method has changed, this may include reference ranges. ALKALINE PHOSPHATASE 2025-04-28 15:04 [facility] 63 iu/l As of February 2023 testing method has changed, this may include reference ranges. VBG PCO2 2025-04-28 15:04 [facility] 65.3 mmhg (missing) VBG PH 2025-04-28 15:04 [facility] 7.393 (missing) (missing) MEAN CORPUSCULAR VOLUME 2025-04-28 15:04 [facility] 89.5 fl (missing) BUN - BLOOD UREA NITROGEN 2025-04-28 15:04 [facility] 9 mg/dl As of February 2023 testing method has changed, this may include reference ranges. CALCIUM 2025-04-28 15:04 [facility] 9.8 mg/dl As of February 2023 testing method has changed, this may include reference ranges. MEAN PLATELET VOLUME 2025-04-28 15:04 [facility] 9.9 fl (missing) CHLORIDE 2025-04-28 15:04 [facility] 98 mmol/l As of February 2023 testing method has changed, this may include reference ranges. Result panel 3 TROPONIN I HIGH SENSITIVITY 2025-04-28 16:35 [facility] 20.8 ng/l Critical result TNIHS 20.8 pg/mL called to and read back by JANICE/BLU Bello RN at 28-Apr-2025 17:00 by [employer]. A HIGH SENSITIVITY TROPONIN result of >= 14.9 ng/L for females is considered POSITIVE. A HIGH SENSITIVITY TROPONIN result of >= 19.8 ng/L for males is considered POSITIVE. A HIGH SENSITIVITY TROPONIN result of >= 17.9 ng/L for unspecified is considered POSITIVE. Result panel 4 NUCLEATED RED BLOOD CELLS AUTO 2025-05-17 00:46 [facility] 0.0 /100wbc (missing) BASOPHILS # (AUTO) 2025-05-17 00:46 [facility] 0.0 10 3/ul (missing) NRBC ABSOLUTE COUNT (AUTO) 2025-05-17 00:46 [facility] 0.00 x10 3/ul (missing) EOSINOPHILS # (AUTO) 2025-05-17 00:46 [facility] 0.2 10 3/ul (missing) MONOCYTES # (AUTO) 2025-05-17 00:46 [facility] 0.6 10 3/ul (missing) CREATININE 2025-05-17 00:46 [facility] 0.7 mg/dl As of February 2023 testing method has changed, this may include reference ranges. LYMPHOCYTES # (AUTO) 2025-05-17 00:46 [facility] 1.0 10 3/ul (missing) ALBUMIN/GLOBULIN RATIO 2025-05-17 00:46 [email or web address] 1.4 (missing) (missing) BILIRUBIN,TOTAL 2025-05-17 00:46 [facility] 1.6 mg/dl As of February 2023 testing method has changed, this may include reference ranges. LIPASE 2025-05-17 00:46 [facility] 10 u/l As of February 2023 testing method has changed, this may include reference ranges. ALT ALANINE AMINOTRANSFERASE 2025-05-17 00:46 [facility] 11 iu/l As of February 2023 testing method has changed, this may include reference ranges. HGB - HEMOGLOBIN 2025-05-17 00:46 [facility] 11.1 g/dl (missing) GLUCOSE 2025-05-17 00:46 [facility] 111 mg/dl As of February 2023 testing method has changed, this may include reference ranges. RED CELL DISTRIBUTION WIDTH 2025-05-17 00:46 [email or web address] 12.9 % (missing) BUN - BLOOD UREA NITROGEN 2025-05-17 00:46 [email or web address] 13 mg/dl As of February 2023 testing method has changed, this may include reference ranges. SODIUM 2025-05-17 00:46 [facility] 133 mmol/l (missing) AST ASPARTATE AMINOTRANSFERASE 2025-05-17 00:46 [facility] 15 iu/l As of February 2023 testing method has changed, this may include reference ranges. ANION GAP 2025-05-17 00:46 [facility] 2.0 (missing) (missing) GLOBULIN 2025-05-17 00:46 [facility] 2.6 g/dl (missing) TROPONIN I HIGH SENSITIVITY 2025-05-17 00:46 [facility] 21.1 ng/l Critical result TNIHS 21.1 pg/mL called to and read back by IRISH Scott RN at 17-May-2025 01:15 by javid. A HIGH SENSITIVITY TROPONIN result of >= 14.9 ng/L for females is considered POSITIVE. A HIGH SENSITIVITY TROPONIN result of >= 19.8 ng/L for males is considered POSITIVE. A HIGH SENSITIVITY TROPONIN result of >= 17.9 ng/L for unspecified is considered POSITIVE. PLT - PLATELET COUNT 2025-05-17 00:46 [facility] 214 10 3/ul (missing) MEAN CORPUSCULAR HEMOGLOBIN 2025-05-17 00:46 [facility] 28.4 pg (missing) ALBUMIN 2025-05-17 00:46 [facility] 3.7 g/dl As of February 2023 testing method has changed, this may include reference ranges. RED BLOOD COUNT 2025-05-17 00:46 [facility] 3.91 10 6/ul (missing) MEAN CORPUSCULAR HGB CONC 2025-05-17 00:46 [facility] 32.4 g/dl (missing) HCT - HEMATOCRIT 2025-05-17 00:46 [facility] 34.3 % (missing) CARBON DIOXIDE - CO2 2025-05-17 00:46 [facility] 38 mmol/l As of February 2023 testing method has changed, this may include reference ranges. POTASSIUM 2025-05-17 00:46 [facility] 4.1 mmol/l As of February 2023 testing method has changed, this may include reference ranges. NEUTROPHILS # (AUTO) 2025-05-17 00:46 [facility] 4.6 10 3/ul (missing) ALKALINE PHOSPHATASE 2025-05-17 00:46 [facility] 58 iu/l As of February 2023 testing method has changed, this may include reference ranges. TOTAL PROTEIN 2025-05-17 00:46 [facility] 6.3 g/dl As of February 2023 testing method has changed, this may include reference ranges. WHITE BLOOD COUNT 2025-05-17 00:46 [facility] 6.4 x10 3/ul (missing) GFR - MDRD 2025-05-17 00:46 [facility] 83 (missing) The IDMS-traceable MDRD Study Equation has been validated extensively in and populations between the ages of 18 and 70 with impaired kidney function (eGFR < 60 mL/min/1.73m2) and has shown good performance for patients with all common causes of kidney disease. Although this equation has not been validated for patients older than 70, an MDRD-derived eGFR may still be a useful tool for providers caring for patients older than 70. References: http://www.nkdep. nih.gov/lab-evalu ation/gfr/creatin ine-stand ardization, last updated October 2011. MEAN CORPUSCULAR VOLUME 2025-05-17 00:46 [facility] 87.7 fl (missing) MEAN PLATELET VOLUME 2025-05-17 00:46 [facility] 9.4 fl (missing) CALCIUM 2025-05-17 00:46 [facility] 9.6 mg/dl As of February 2023 testing method has changed, this may include reference ranges. CHLORIDE 2025-05-17 00:46 [facility] 93 mmol/l As of February 2023 testing method has changed, this may include reference ranges. Result panel 5 TROPONIN I HIGH SENSITIVITY 2025-05-17 03:27 [facility] 25.4 ng/l Critical result TNIHS 25.4 pg/mL called to and read back by Paulette Ballard RN ED at 17-May-2025 03:53 by [facility]. A HIGH SENSITIVITY TROPONIN result of >= 14.9 ng/L for females is considered POSITIVE. A HIGH SENSITIVITY TROPONIN result of >= 19.8 ng/L for males is considered POSITIVE. A HIGH SENSITIVITY TROPONIN result of >= 17.9 ng/L for unspecified is considered POSITIVE. Result panel 6 WBC,URINE 2025-05-17 06:50 [facility] 0-3 /hpf (missing) UROBILINOGEN,URIN E 2025-05-17 06:50 [facility] 0.2 (NORMAL) e.u./dl (missing) SPECIFIC GRAVITY,URINE 2025-05-17 06:50 [facility] 1.010 (missing) (missing) KETONES,URINE (UA) 2025-05-17 06:50 [facility] 15 mg/dl (missing) RBC,URINE 2025-05-17 06:50 [facility] 6-10 /hpf (missing) PH,URINE 2025-05-17 06:50 [facility] 8.0 ph (missing) CLARITY,URINE 2025-05-17 06:50 [facility] CLEAR (missing) (missing) URINE MICROSCOPIC INDICATED? 2025-05-17 06:50 [facility] INDICATED (missing) (missing) OCCULT BLOOD,URINE 2025-05-17 06:50 [facility] MODERATE (missing) (missing) LEUKOCYTE ESTERASE, URINE 2025-05-17 06:50 [facility] NEGATIVE (missing) (missing) NITRITE,URINE 2025-05-17 06:50 [facility] NEGATIVE (missing) (missing) BILIRUBIN,URINE 2025-05-17 06:50 [facility] NEGATIVE (missing) Bilirubin can be influenced by color interference. Please correlate positive results with clinical presentation GLUCOSE, URINE (UA) 2025-05-17 06:50 [facility] NEGATIVE mg/dl (missing) SQUAMOUS EPITHELIAL CELL,UR 2025-05-17 06:50 [facility] NONE SEEN (missing) (missing) UR CULTURE IF IND 2025-05-17 06:50 [facility] NOT INDICATED (missing) (missing) BACTERIA,URINE 2025-05-17 06:50 [facility] Rare /hpf (missing) PROTEIN,URINE 2025-05-17 06:50 [facility] TRACE mg/dl (missing) COLOR,URINE 2025-05-17 06:50 [facility] YELLOW (missing) URINE CATHETERIZED Social History date description facility
[2025-06-12 11:02] LABS: GLUCOSE, URINE (UA) NEGATIVE (NEGATIVE); KETONES,URINE (UA) 40 mg/dL (NEGATIVE); OCCULT BLOOD,URINE TRACE-INTACT (NEGATIVE)
[2025-06-12 11:12] LABS: SQUAMOUS EPITHELIAL CELL,UR RARE Squamous (<= Few)
[2025-06-12 11:13] LABS: AMORPHOUS SEDIMENT,UR Rare /LPF
[2025-06-12 11:35] LABS: HCT - HEMATOCRIT 36.5 % (37.0-47.0); HGB - HEMOGLOBIN 12.0 g/dL (12.0-16.0); MEAN PLATELET VOLUME 9.4 fL (7.9-10.8); NRBC ABSOLUTE COUNT (AUTO) 0.00 x10^3/uL; NUCLEATED RED BLOOD CELLS AUTO 0.0 /100WBC; PLT - PLATELET COUNT 267 10^3/uL (130-450); RED CELL DISTRIBUTION WIDTH 12.8 % (12.0-15.0)
[2025-06-12 11:50] LABS: ALT ALANINE AMINOTRANSFERASE 11.0 IU/L (10-60); AST ASPARTATE AMINOTRANSFERASE 18.0 IU/L (10-42); BUN - BLOOD UREA NITROGEN 17.0 mg/dL (6-20); CARBON DIOXIDE - CO2 40.0 mmol/L (21-32); CREATININE 0.5 mg/dL (0.6-1.3); GFR - MDRD 123.0 (>89)
[2025-06-12] MEDS: MAGNESIUM OXIDE 400 MG TABLET PO STA (11:58)
[2025-06-12] MEDS: IPRATROPIUM/ALBUTEROL 3 ML NEB INH STA (12:45)
--- NOTE | 2025-06-12 13:56 | XRAY Report ---
PROCEDURE: XR Chest 1V INDICATIONS: sob TECHNIQUE: One view of the chest was acquired. COMPARISON: Chest x-ray 05/17/2025 FINDINGS: Surgical changes and devices: None. Lungs and pleura: No pleural effusions or pneumothorax. No consolidation. Lungs are hyperinflated suggestive of COPD. Mediastinum: Mediastinal contours appear normal. Heart size is normal. Bones and chest wall: No suspicious bony lesions. Overlying soft tissues appear unremarkable. IMPRESSION: No acute cardiopulmonary process. Reviewed by: Staci Vance MD on 06/12/2025 1:53 PM PST Approved by: Staci Vance MD on 06/12/2025 1:53 PM PST Station ID: [id number]
[2025-06-12 14:32] LABS: VBG PH 7.394 (7.31-7.41)
[2025-06-12 14:33] LABS: VBG BASE EXCESS 16.9 mmol/L (-2 - +2); VBG PCO2 68.2 mmHg (41-51); VBG PO2 38.7 mmHg (25-47); VBG TOTAL CO2 44.1 mmol/L (24-29)
[2025-06-12 15:39] LABS: VBG BASE EXCESS 16.3 mmol/L (-2 - +2); VBG PCO2 49.8 mmHg (41-51); VBG PH 7.505 (7.31-7.41); VBG PO2 90.0 mmHg (25-47); VBG TOTAL CO2 41.2 mmol/L (24-29)
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
[2025-06-12] MEDS ORDERED: ONDANSETRON ODT 4 MG TABLET TL PRN (16:47)
--- NOTE | 2025-06-12 17:04 | PHARMACY PROGRESS NOTE ---
Best Possible Medication History Admit Date and Time: 06/12/25 1556 Home Medications Medication Instructions Recorded Confirmed Type albuterol sulfate 90 mcg/actuation 1 - 2 puff inhalati on Q4HR 12/05/18 06/12/25 History aerosol inhaler lorazepam 0.5 mg tablet 0.5 - 1 mg PO QPM PRN Anxiet y 06/10/23 06/12/25 History atorvastatin 20 mg tablet 40 mg (2 x 20 mg) PO QPM 30 days 09/27/23 06/12/25 Rx #60 tabs carvedilol 12.5 mg tablet 12.5 mg PO BID 30 days #60 t abs 09/27/23 06/12/25 Rx clopidogrel 75 mg tablet (Plavix) 75 mg PO DAILY #30 t abs 09/27/23 06/12/25 Rx pantoprazole 20 mg tablet,delayed 40 mg (2 x 20 mg) PO DAILY #30 caps 09/27/23 06/12/25 Rx release (Protonix) ipratropium 0.5 mg-albuterol 3 mg 3 ml inhalation Q4H PRN shortness 04/28/25 06/12/25 History (2.5 mg base)/3 mL nebulization of breath or wheezing soln amlodipine 2.5 mg tablet 2.5 mg PO DAILY 06/12/2502/27 History budesonide 0.25 mg/2 mL suspension 0.25 mg inhalation BID 06/12/25 06/12/25 History for nebulization fluticasone propionate 50 1 spray intranasal DAILY 02/2706/12/25 History mcg/actuation nasal spray,suspension ipratropium bromide 21 mcg (0.03 2 spray intranasal TI D PRN 06/12/25 06/12/25 History %) nasal spray ALLERGIC RHINITIS lisinopril 20 mg tablet 20 mg PO BID 06/12/25 History nitroglycerin 0.4 mg sublingual 0.4 mg sublingual Q5M PRN chest 06/12/25 06/12/25 History tablet pain oxycodone 10 mg tablet 10 mg PO DAILY PRN pain 02/2706/12/25 History tiotropium bromide 2.5 2 puff inhalation DAILY 02/2706/12/25 History mcg/actuation mist for inhalation (Spiriva Respimat) Processed by: Pharmacy Medications reviewed in ED?: Yes Medication History completed: Yes Patient Interview: Completed Secondary Source(s): Pharmacy records and Insurance records [facility] Statement: As the person ultimately responsible for medication therapy, providers are able to order a medication from an existing home medication list in [facility] via the "Reconcile Routine" prior to Confirmation of that medication by community support associate. Such practice is discouraged except when the physician, in their clinical judgment, deems that a medical need exists for a medication without regard to previous use.
[2025-06-12] MEDS: SODIUM CHLORIDE FLUSH 0.9% 10 ML SYRINGE IVP SCH (17:24)
[2025-06-12] MEDS: MAGNESIUM OXIDE 400 MG TABLET PO SCH (18:35)
[2025-06-12] MEDS: IPRATROPIUM/ALBUTEROL 3 ML NEB INH SCH (19:32)
[2025-06-12] MEDS: ATORVASTATIN 40 MG TABLET PO SCH (22:11)
[2025-06-12] MEDS: SACCHAROMYCES BOULARDII 250 MG CAPSULE PO SCH (22:12)
[2025-06-12] MEDS: LOPERAMIDE 2 MG CAPSULE PO PRN (22:12)
[2025-06-13 05:53] LABS: HCT - HEMATOCRIT 36.0 % (37.0-47.0); HGB - HEMOGLOBIN 12.1 g/dL (12.0-16.0); MEAN PLATELET VOLUME 9.5 fL (7.9-10.8); PLT - PLATELET COUNT 283.0 10^3/uL (130-450); RED CELL DISTRIBUTION WIDTH 12.8 % (12.0-15.0)
[2025-06-13 06:16] LABS: BUN - BLOOD UREA NITROGEN 19.0 mg/dL (6-20); CARBON DIOXIDE - CO2 40.0 mmol/L (21-32); CREATININE 0.5 mg/dL (0.6-1.3); GFR - MDRD 123.0 (>89)
[2025-06-13] MEDS: PANTOPRAZOLE 40 MG TABLET PO SCH (06:36)
[2025-06-13] MEDS: ENOXAPARIN 40 MG/0.4 ML SYRINGE SUBQ SCH (09:01)
[2025-06-13] MEDS: FLUTICASONE NASAL SPRAY NAS SCH (09:02)
[2025-06-13] MEDS: CLOPIDOGREL 75 MG TABLET PO SCH (09:04)
--- NOTE | 2025-06-13 09:14 | Discharge Summary ---
Discharge Summary ALLERGIES Allergies Allergy/AdvReac Type Severity Reaction Status Date / Time codeine Allergy Unknown Verified 06/12/25 10:04 morphine Allergy Unknown Verified 06/12/25 10:04 Sulfa (Sulfonamide Allergy Unknown Verified 06/12/25 10:04 Antibiotics) MEDICATIONS Ambulatory Orders Medication Instructions Recorded Confirmed albuterol sulfate 90 mcg/actuation 1 - 2 puff inhalati on Q4HR 12/05/18 06/12/25 aerosol inhaler lorazepam 0.5 mg tablet 0.5 - 1 mg PO QPM PRN Anxiet y 06/10/23 06/12/25 atorvastatin 20 mg tablet 40 mg (2 x 20 mg) PO QPM 30 days 09/27/23 06/12/25 #60 tabs carvedilol 12.5 mg tablet 12.5 mg PO BID 30 days #60 t abs 09/27/23 06/12/25 clopidogrel 75 mg tablet (Plavix) 75 mg PO DAILY #30 t abs 09/27/23 06/12/25 pantoprazole 20 mg tablet,delayed 40 mg (2 x 20 mg) PO DAILY #30 caps 09/27/23 06/12/25 release (Protonix) ipratropium 0.5 mg-albuterol 3 mg 3 ml inhalation Q4H PRN shortness 04/28/25 06/12/25 (2.5 mg base)/3 mL nebulization of breath or wheezing soln amlodipine 2.5 mg tablet 2.5 mg PO DAILY 06/12/2502/27 budesonide 0.25 mg/2 mL suspension 0.25 mg inhalation BID 06/12/25 06/12/25 for nebulization fluticasone propionate 50 1 spray intranasal DAILY 02/2706/12/25 mcg/actuation nasal spray,suspension ipratropium bromide 21 mcg (0.03 2 spray intranasal TI D PRN 06/12/25 06/12/25 %) nasal spray ALLERGIC RHINITIS lisinopril 20 mg tablet 20 mg PO BID 06/12/25 nitroglycerin 0.4 mg sublingual 0.4 mg sublingual Q5M PRN chest 06/12/25 06/12/25 tablet pain oxycodone 10 mg tablet 10 mg PO DAILY PRN pain 02/2706/12/25 tiotropium bromide 2.5 2 puff inhalation DAILY 02/2706/12/25 mcg/actuation mist for inhalation (Spiriva Respimat) PHYSICAL EXAM AT DISCHARGE Vital Signs: Vital Signs x48h Temp Pulse Pulse Resp BP Pulse Ox O2 Flow Rate 06/13/25 09:00 97.9 F 91 16 129/87 95 06/13/25 07:23 2 06/13/25 07:23 95 20 06/13/25 06:01 98.1 F 106 H 20 134/72 H 96 3 LABS 06/13/25 05:30 06/13/25 05:30 Discharge Plan Discharge Condition: Stable Prescriptions: No Action albuterol sulfate 8.5 GM HFA aerosol inhaler 1 - 2 puff inhalation Q4HR lorazepam 0.5 MG tablet 0.5 - 1 mg PO QPM PRN (Reason: Anxiety) atorvastatin 20 MG tablet 40 mg PO QPM 30 Days Qty: 60 0RF carvedilol 12.5 MG tablet 12.5 mg PO BID 30 Days Qty: 60 0RF clopidogrel [Plavix] 75 MG tablet 75 mg PO DAILY Qty: 30 0RF pantoprazole [Protonix] 20 MG tablet,delayed release (DR/EC) 40 mg PO DAILY Qty: 30 0RF ipratropium-albuterol 0.5 mg-3 mg(2.5 mg base)/3 mL solution for nebulization 3 ml INHALATION Q4H PRN (Reason: shortness of breath or wheezing) amlodipine 2.5 mg tablet 2.5 mg PO DAILY budesonide 0.25 mg/2 mL suspension for nebulization 0.25 mg inhalation BID fluticasone propionate 50 mcg/actuation spray,suspension 1 spray INTRANASAL DAILY ipratropium bromide 21 mcg (0.03 %) spray,non-aerosol 2 spray INTRANASAL TID PRN (Reason: ALLERGIC RHINITIS) Patient Comments: USE 2 SPRAYS IN EACH NOSTRIL 2 TO 3 TIMES DAILY. nitroglycerin 0.4 mg tablet, sublingual 0.4 mg sublingual Q5M PRN (Reason: chest pain) Spiriva Respimat 2.5 mcg/actuation mist 2 puff INHALATION DAILY lisinopril 20 MG tablet 20 mg PO BID oxycodone 10 mg tablet 10 mg PO DAILY PRN (Reason: pain) Print Language: Italian Stand Alone Forms: PCP List Follow-up Care: Silverio Lucero PA [Primary Care Provider, Medical Aide]
[2025-06-13 10:57] LABS: ABG BASE EXCESS 26.2 mmol/L (-2.0-3.0); ABG HCO3 48.3 mmol/L (22.0-26.0); ABG OXYGEN SATURATION 98 % (95-98); ABG PCO2 51 mmHg (34-45); ABG PH 7.58 (7.35-7.45); ABG PO2 82 mmHg (83-108)
[2025-06-13 10:59] LABS: ABG TCO2 49.9 mmol/L (21.0-29.0)
--- NOTE | 2025-06-13 11:17 | PROVIDER PROGRESS NOTE ---
Subjective Subjective Subjective: This morning, patient was resting comfortably. Throughout the morning, however, she started to get short of breath. She is tachypneic, and does not feel like she can catch her breath. We spoke about using BiPAP. She is agreeable to try, but she states that she does feel claustrophobic at times with the BiPAP mask. She denies any fevers or chills. She has minimal cough. She has no chest pain or chest pressure. Current Medications Current Medications Current Medications: Current Medications Generic Name Dose Route Start Last Admin Trade Name Freq PRN Reason Stop Dose Admin Acetaminophen 650 mg 06/12/25 16:47 Acetaminophen 325 Mg Tablet PO Q4HR PRN Pain 1 to 4, or Fever Albuterol/Ipratropium 3 ml 06/12/25 19:00 06/13/25 07:21 Ipratropium/Albuterol 3 Ml Neb INH 3 ml RTQID ABRAHAM Administration Amlodipine Besylate 2.5 mg 06/13/25 09:00 06/13/25 09:03 Amlodipine 5 Mg Tablet PO 2.5 mg DAILY ABRAHAM Administration Atorvastatin Calcium 40 mg 06/12/25 21:00 06/12/25 22:11 Atorvastatin 40 Mg Tablet PO 40 mg QPM ABRAHAM Administration Carvedilol 12.5 mg 06/12/25 21:00 06/13/25 09:04 Carvedilol 12.5 Mg Tablet PO 12.5 mg BID ABRAHAM Administration Clopidogrel Bisulfate 75 mg 06/13/25 09:00 06/13/25 09:04 Clopidogrel 75 Mg Tablet PO 75 mg DAILY ABRAHAM Administration Enoxaparin Sodium 40 mg 06/13/25 09:00 06/13/25 09:01 Enoxaparin 40 Mg/0.4 Ml Syringe SUBQ 40 mg DAILY ABRAHAM Administration Fluticasone Propionate 1 sprays 06/13/25 09:00 06/13/25 10:39 Fluticasone Nasal [place] RADHA Not Given DAILY ABRAHAM Lisinopril 20 mg 06/12/25 21:00 06/13/25 09:04 Lisinopril 20 Mg Tablet PO 20 mg BID ABRAHAM Administration Loperamide HCl 2 mg 06/12/25 18:55 06/12/25 22:12 Loperamide 2 Mg Capsule PO 2 mg QID PRN Administration Diarrhea Lorazepam 0.5 - 1 mg 06/12/25 17:13 06/13/25 04:06 Lorazepam 0.5 Mg Tablet PO 0.5 mg QPM PRN Administration Anxiety Magnesium Oxide 400 mg 06/12/25 18:00 06/13/25 09:03 Magnesium Oxide 400 Mg Tablet PO 400 mg DAILYWM ABRAHAM Administration Ondansetron HCl 4 mg 06/12/25 16:47 Ondansetron Odt 4 Mg Tablet TL Q6HR PRN Nausea / Vomiting Ondansetron HCl 4 mg 06/12/25 16:47 Ondansetron 4 Mg/2 Ml Vial IVP Q6HR PRN Nausea / Vomiting Oxycodone HCl 10 mg 06/12/25 17:19 Oxycodone 5 Mg Tablet PO DAILY PRN Moderate Pain (Level 4-6) Pantoprazole Sodium 40 mg 06/13/25 07:00 06/13/25 06:36 Pantoprazole 40 Mg Tablet PO 40 mg QDAC ABRAHAM Administration Prednisone 40 mg 06/12/25 19:00 06/13/25 09:04 Prednisone 20 Mg Tablet PO 40 mg DAILYWM ABRAHAM Administration Saccharomyces Boulardii 500 mg 06/12/25 20:10 06/13/25 09:03 Saccharomyces Boulardii 250 Mg Capsule PO 500 mg BIDWM ABRAHAM Administration Sodium Chloride 10 ml 06/12/25 16:47 Sodium Chloride Flush 0.9% 10 Ml Syringe IVP PRN PRN NEEDED PER PROVIDER ORDERS Sodium Chloride 10 ml 06/12/25 17:00 06/13/25 10:39 Sodium Chloride Flush 0.9% 10 Ml Syringe IVP Not Given 0100,0900,1700 [facility] Objective Vital Signs/Intake & Output Reviewed Vital Signs: Yes Vital Signs: Vital Signs x48h Temp Pulse Pulse Resp BP Pulse Ox O2 Flow Rate 06/13/25 09:00 97.9 F 91 16 129/87 95 06/13/25 07:23 2 06/13/25 07:23 95 20 06/13/25 06:01 98.1 F 106 H 20 134/72 H 96 3 Intake & Output: Intake & Output 06/10/25 06/11/25 06/12/25 06/13/25 23:59 23:59 23:59 23:59 Intake Total 220 / 220 120 / 120 Output Total 100 / 100 420 / 420 Balance 120 / 120 -300 / -300 Weight (kg) 37 kg Objective General Appearance: positive Alert, Moderate distress and Other (Small, cachectic in appearance. Bilateral temporal wasting noted. Some tripoding noted, accessory muscle use noted.); negative Anxious Eyes Bilateral: positive Normal inspection, PERRL and EOMI ENT: positive ENT inspection nml, Pharynx nml and No signs of dehydration Neck: positive Nml inspection, Thyroid nml and No JVD Respiratory: positive Chest non-tender and Wheezes (Minimal wheezes noted, some bilateral, bibasilar crackles noted); negative No respiratory distress (Mild- moderate), Breath sounds nml, Rales or Rhonchi Cardiovascular: positive Regular rate & rhythm, No murmur and No gallop; negative Tachycardia or Systolic murmur Abdomen: positive Non-tender, No organomegaly and No distention; negative Guarding or Splenomegaly Back: positive Nml inspection; negative CVA tenderness (R) or CVA tenderness (L) Skin: positive Color nml, No rash, Warm and Dry Extremities: positive Non-tender, Full ROM, Nml appearance and No pedal edema Neurologic/Psychiatric: positive Oriented x3, Motor nml and Mood/affect nml Lab Results 06/13/25 05:30 06/13/25 05:30 Other Labs: Lab Results x24hrs 06/13/25 06/13/25 06/12/25 Range/Units 10:45 05:30 15:16 WBC 2.7 L (4.8-10.8) x10^3/uL RBC 4.28 (4.20-5.40) 10^6/uL Hgb 12.1 (12.0-16.0) g/dL Hct 36.0 L (37.0-47.0) % MCV 84.1 (81.0-99.0) fL MCH 28.3 (27.0-31.0) pg MCHC 33.6 (32.0-36.0) g/dL RDW 12.8 (12.0-15.0) % Plt Count 283 (130-450) 10^3/uL MPV 9.5 (7.9-10.8) fL Neut # (Auto) (1.5-6.6) 10^3/uL Lymph # (Auto) (1.5-3.5) 10^3/uL [place] # (Auto) (0.0-1.0) 10^3/uL Eos # (Auto) (0.0-0.7) 10^3/uL Baso # (Auto) (0.0-0.1) 10^3/uL Absolute Nucleated RBC x10^3/uL Nucleated RBC % /100WBC Bld Gas Analysis Time 1055 Sample Site RIGHT RADIAL ABG pH 7.58 H (7.35-7.45) ABG pCO2 51 H (34-45) mmHg ABG pO2 82 L (83-108) mmHg ABG HCO3 48.3 H (22.0-26.0) mmol/L ABG Total CO2 49.9 H* (21.0-29.0) mmol/L ABG O2 Saturation 98 (95-98) % ABG Base Excess 26.2 H (-2.0-3.0) mmol/L Manjit Test POSITIVE VBG pH 7.505 H (7.31-7.41) VBG pCO2 49.8 (41-51) mmHg VBG pO2 90.0 H (25-47) mmHg VBG HCO3 39.6 H (23-28) mmol/L VBG Total CO2 41.2 H (24-29) mmol/L VBG O2 Saturation 98.0 H (60-80) % VBG Base Excess 16.3 H (-2 - +2) mmol/L O2 Delivery Device NASAL CANNULA O2 Liters/Min 2.00 LPM Sodium 132 L (135-145) mmol/L Potassium 3.3 L (3.5-4.5) mmol/L Chloride 86 L (101-111) mmol/L Carbon Dioxide 40 H* (21-32) mmol/L Anion Gap 6.0 (6-13) BUN 19 (6-20) mg/dL Creatinine 0.5 L (0.6-1.3) mg/dL Estimated GFR (MDRD) 123 (>89) Glucose 133 H (74-104) mg/dL Calcium 9.2 (8.5-10.3) mg/dL Magnesium 1.9 (1.7-2.3) mg/dL Total Bilirubin (0.2-1.0) mg/dL AST (10-42) IU/L ALT (10-60) IU/L Alkaline Phosphatase (42-121) IU/L Total Protein (6.4-8.9) g/dL Albumin (3.2-5.5) g/dL Globulin (2.1-4.2) g/dL Albumin/Globulin Ratio (1.0-2.2) TSH (0.34-5.60) uIU/mL Free T4 Direct (0.58-1.64) ng/dL 06/12/25 06/12/25 06/12/25 Range/Units 14:25 11:30 05:00 WBC 5.0 (4.8-10.8) x10^3/uL RBC 4.28 (4.20-5.40) 10^6/uL Hgb 12.0 (12.0-16.0) g/dL Hct 36.5 L (37.0-47.0) % MCV 85.3 (81.0-99.0) fL MCH 28.0 (27.0-31.0) pg MCHC 32.9 (32.0-36.0) g/dL RDW 12.8 (12.0-15.0) % Plt Count 267 (130-450) 10^3/uL MPV 9.4 (7.9-10.8) fL Neut # (Auto) 4.1 (1.5-6.6) 10^3/uL Lymph # (Auto) 0.5 L (1.5-3.5) 10^3/uL [place] # (Auto) 0.3 (0.0-1.0) 10^3/uL Eos # (Auto) 0.0 (0.0-0.7) 10^3/uL Baso # (Auto) 0.0 (0.0-0.1) 10^3/uL Absolute Nucleated RBC 0.00 x10^3/uL Nucleated RBC % 0.0 /100WBC Bld Gas Analysis Time Sample Site ABG pH (7.35-7.45) ABG pCO2 (34-45) mmHg ABG pO2 (83-108) mmHg ABG HCO3 (22.0-26.0) mmol/L ABG Total CO2 (21.0-29.0) mmol/L ABG O2 Saturation (95-98) % ABG Base Excess (-2.0-3.0) mmol/L Manjit Test VBG pH 7.394 (7.31-7.41) VBG pCO2 68.2 H (41-51) mmHg VBG pO2 38.7 (25-47) mmHg VBG HCO3 42.0 H (23-28) mmol/L VBG Total CO2 44.1 H (24-29) mmol/L VBG O2 Saturation 58.0 L (60-80) % VBG Base Excess 16.9 H (-2 - +2) mmol/L O2 Delivery Device O2 Liters/Min LPM Sodium 129 L (135-145) mmol/L Potassium 3.4 L (3.5-4.5) mmol/L Chloride 84 L (101-111) mmol/L Carbon Dioxide 40 H* (21-32) mmol/L Anion Gap 5.0 L (6-13) BUN 17 (6-20) mg/dL Creatinine 0.5 L (0.6-1.3) mg/dL Estimated GFR (MDRD) 123 (>89) Glucose 102 (74-104) mg/dL Calcium 9.4 (8.5-10.3) mg/dL Magnesium 1.4 L (1.7-2.3) mg/dL Total Bilirubin 2.1 H (0.2-1.0) mg/dL AST 18 (10-42) IU/L ALT 11 (10-60) IU/L Alkaline Phosphatase 62 (42-121) IU/L Total Protein 6.3 L (6.4-8.9) g/dL Albumin 3.7 (3.2-5.5) g/dL Globulin 2.6 (2.1-4.2) g/dL Albumin/Globulin Ratio 1.4 (1.0-2.2) TSH 0.17 L (0.34-5.60) uIU/mL Free T4 Direct 1.08 (0.58-1.64) ng/dL Assessment/Plan Problem List (1) COPD exacerbation: Impression: Initially, patient presented with altered mentation due to CO2 retention. However, today, she is now complaining of increased work of breathing. She remains tachypneic, with some tripoding and accessory muscle use. Previous chest CT from 05/29 shows atelectasis and scarring in the bilateral lower lobes with mild emphysematous changes. She is chronically on 3 to 4 L of oxygen at home. Although her oxygenation is adequate, her work of breathing has increased. Procalcitonin has been ordered to ensure there is no superimposed bacterial process going on. Will start on azithromycin for its anti-inflammatory properties and COPD exacerbation. No leukocytosis, although she has a slight leukopenia 2.7. Has remained afebrile. Lung exam with minimal expiratory wheezing, good air movement, some minute bibasilar crackles. Oral prednisone has been changed to IV Solu-Medrol. Continue scheduled DuoNebs RT 4 times daily. Continue adequate pulmonary hygiene including incentive spirometer use to prevent atelectasis. Will transfer to ICU for BiPAP use for increased work of breathing. (2) Acute metabolic encephalopathy: (3) CO2 retention: Impression: Resolved. Patient is mentating appropriately. No lethargy or altered mentation noted at this time. (4) Acute urinary retention: Impression: When patient presented, she was complaining of abdominal pain. This was attributed to urinary retention when this resolved with placement of Parmar catheter. Will remove Parmar today, and do trial of void. (5) Diarrhea: Impression: Patient has had multiple loose bowel movements. Stool studies have been ordered. Will start probiotic at this time. Qualifiers: Diarrhea type: unspecified type Qualified Code(s): R19.7 - Diarrhea, unspecified (6) COPD (chronic obstructive pulmonary disease): Impression: See above. Qualifiers: COPD type: emphysema Emphysema type: unspecified Qualified Code(s): J 43.9 - Emphysema, unspecified (7) CAD (coronary artery disease): Impression: No recent outside records have been noted. Patient does state that she has CAD and had a stent placed in the last few years. Will continue her home medications which include Coreg, atorvastatin, amlodipine, lisinopril, Plavix. Qualifiers: Associated angina: without angina Coronary Disease-Associated Artery/Lesion type: unspecified vessel or lesion type [place] vs. transplanted heart: [place] heart Qualified Code(s): I25.10 - Atherosclerotic heart disease of [place] coronary artery without angina pectoris
--- NOTE | 2025-06-13 13:33 | XRAY Report ---
PROCEDURE: XR Chest 1V INDICATIONS: virgil TECHNIQUE: One view of the chest was acquired. COMPARISON: Multiple priors, most recent dated 05/17/2025 FINDINGS: Surgical changes and devices: None. Lungs and pleura: Lungs are hyperinflated with pleural parenchymal scarring in the right midlung which is unchanged. There is no focal consolidation, effusion, or pneumothorax. Mediastinum: Mediastinal contours appear normal. Heart size is normal. Bones and chest wall: No suspicious bony lesions. Overlying soft tissues appear unremarkable. IMPRESSION: No acute cardiopulmonary process. Reviewed by: Yanet Pineda MD on 06/13/2025 12:29 PM [facility] Approved by: Yanet Pineda MD on 06/13/2025 12:29 PM [facility] Station ID: [id number]
[2025-06-13] MEDS: oxyCODONE 5 MG TABLET PO PRN ×2 (13:46→20:32)
[2025-06-13] MEDS: AZITHROMYCIN 250 MG TABLET PO SCH (14:26)
[2025-06-13] MEDS: methylPREDNISolone SUCCINATE 40 MG/ML VIAL IVP SCH (14:26)
[2025-06-13] MEDS: SODIUM CHLORIDE FLUSH 0.9% 10 ML SYRINGE IVP PRN (15:19)
[2025-06-13] MEDS: ONDANSETRON 4 MG/2 ML VIAL IVP PRN (15:19)
[2025-06-13] MEDS: LACTATED RINGERS 1,000 ML IV SCH (18:01)
[2025-06-14 04:08] LABS: ADENOVIRUS F 40/41 Not Detected (Not Detected); ASTROVIRUS Not Detected (Not Detected); C DIFFICILE TOXIN A/B Detected (Not Detected); CAMPYLOBACTER Not Detected (Not Detected); CRYPTOSPORIDIUM Not Detected (Not Detected); CYCLOSPORA CAYETANENSIS Not Detected (Not Detected); ENTAMOEBA HISTOLYTICA Not Detected (Not Detected); ENTEROAGGREGATIVE E COLI Not Detected (Not Detected); ENTEROPATHOGENIC E COLI Not Detected (Not Detected); ENTEROTOXIGENIC E COLI Not Detected (Not Detected); GIARDIA LAMBLIA Not Detected (Not Detected); NOROVIRUS GI/GII Not Detected (Not Detected); PLESIOMONAS SHIGELLOIDES Not Detected (Not Detected); ROTAVIRUS A Not Detected (Not Detected); SALMONELLA Not Detected (Not Detected); SAPOVIRUS Not Detected (Not Detected); SHIGA-TOXIN-PRODUCING E COLI Not Detected (Not Detected); SHIGELLA/ENTEROINVASIVE E COLI Not Detected (Not Detected); VIBRIO Not Detected (Not Detected); VIBRIO CHOLERAE Not Detected (Not Detected); YERSINIA ENTEROCOLITICA Not Detected (Not Detected)
[2025-06-14 05:02] LABS: HCT - HEMATOCRIT 36.3 % (37.0-47.0); HGB - HEMOGLOBIN 12.5 g/dL (12.0-16.0); MEAN PLATELET VOLUME 9.5 fL (7.9-10.8); PLT - PLATELET COUNT 358.0 10^3/uL (130-450); RED CELL DISTRIBUTION WIDTH 13.0 % (12.0-15.0); VBG BASE EXCESS 20.7 mmol/L (-2 - +2); VBG PCO2 67.4 mmHg (41-51); VBG PH 7.431 (7.31-7.41); VBG PO2 28.2 mmHg (25-47); VBG TOTAL CO2 47.3 mmol/L (24-29)
[2025-06-14 05:03] LABS: VBG PH 7.426 (7.31-7.41)
[2025-06-14 05:14] LABS: PHOSPHORUS 4.1 mg/dL (2.5-5.0)
[2025-06-14 05:16] LABS: ALT ALANINE AMINOTRANSFERASE 10.0 IU/L (10-60); AST ASPARTATE AMINOTRANSFERASE 18.0 IU/L (10-42); BUN - BLOOD UREA NITROGEN 28.0 mg/dL (6-20); CARBON DIOXIDE - CO2 41.0 mmol/L (21-32); CREATININE 0.8 mg/dL (0.6-1.3); GFR - MDRD 71.0 (>89)
[2025-06-14] MEDS: VANCOMYCIN 125 MG CAPSULE PO SCH (08:49)
[2025-06-14] MEDS: methylPREDNISolone SUCCINATE 40 MG/ML VIAL IVP SCH (08:50)
--- NOTE | 2025-06-14 11:37 | PROVIDER PROGRESS NOTE ---
Subjective Subjective Subjective: This morning, patient states that she is feeling a little bit better. Throughout the day, she did worsen a little bit. She had some diarrhea yesterday, which seems to have resolved overnight. She has ongoing shortness of breath. She states the diarrhea has been going on for about 3 days. She has never required a BiPAP in the past, but she has chronic COPD, and has had worsening shortness of breath and dyspnea. Current Medications Current Medications Current Medications: Current Medications Generic Name Dose Route Start Last Admin Trade Name Freq PRN Reason Stop Dose Admin Acetaminophen 650 mg 06/12/25 16:47 Acetaminophen 325 Mg Tablet PO Q4HR PRN Pain 1 to 4, or Fever Albuterol/Ipratropium 3 ml 06/12/25 19:00 06/14/25 10:40 Ipratropium/Albuterol 3 Ml Neb INH 3 ml RTQID ABRAHAM Administration Amlodipine Besylate 2.5 mg 06/13/25 09:00 06/14/25 08:48 Amlodipine 5 Mg Tablet PO 2.5 mg DAILY ABRAHAM Administration Atorvastatin Calcium 40 mg 06/12/25 21:00 06/13/25 20:31 Atorvastatin 40 Mg Tablet PO 40 mg QPM ABRAHAM Administration Azithromycin 500 mg 06/13/25 14:00 06/14/25 08:49 Azithromycin 250 Mg Tablet PO 06/15/25 09:01 500 mg DAILY ABRAHAM Administration Carvedilol 12.5 mg 06/12/25 21:00 06/14/25 08:49 Carvedilol 12.5 Mg Tablet PO 12.5 mg BID ABRAHAM Administration Clopidogrel Bisulfate 75 mg 06/13/25 09:00 06/14/25 08:49 Clopidogrel 75 Mg Tablet PO 75 mg DAILY ABRAHAM Administration Enoxaparin Sodium 40 mg 06/13/25 09:00 06/14/25 08:49 Enoxaparin 40 Mg/0.4 Ml Syringe SUBQ 40 mg DAILY ABRAHAM Administration Fluticasone Propionate 1 sprays 06/13/25 09:00 06/14/25 08:58 Fluticasone Nasal [place] RADHA Not Given DAILY ABRAHAM Lactated Ringer's 1,000 mls @ 75 mls/hr 06/13/25 18:00 06/14/25 08:48 Lr IV 75 mls/hr .[id number] ABRAHAM Administration Lisinopril 20 mg 06/12/25 21:00 06/14/25 08:50 Lisinopril 20 Mg Tablet PO 20 mg BID ABRAHAM Administration Lorazepam 0.5 - 1 mg 06/12/25 17:13 06/13/25 20:31 Lorazepam 0.5 Mg Tablet PO 0.5 mg QPM PRN Administration Anxiety Magnesium Oxide 400 mg 06/12/25 18:00 06/14/25 08:47 Magnesium Oxide 400 Mg Tablet PO 400 mg DAILYWM ABRAHAM Administration Methylprednisolone 40 mg 06/14/25 09:00 06/14/25 08:50 Methylprednisolone Succinate 40 Mg/Ml Vial IVP 40 mg DAILY ABRAHAM Administration Ondansetron HCl 4 mg 06/12/25 16:47 Ondansetron Odt 4 Mg Tablet TL Q6HR PRN Nausea / Vomiting Ondansetron HCl 4 mg 06/12/25 16:47 06/13/25 15:19 Ondansetron 4 Mg/2 Ml Vial IVP 4 mg Q6HR PRN Administration Nausea / Vomiting Oxycodone HCl 5 mg 06/13/25 16:05 06/14/25 04:16 Oxycodone 5 Mg Tablet PO 5 mg Q8HR PRN Administration Moderate Pain (Level 4-6) Pantoprazole Sodium 40 mg 06/13/25 07:00 06/14/25 06:27 Pantoprazole 40 Mg Tablet PO 40 mg QDAC ABRAHAM Administration Saccharomyces Boulardii 500 mg 06/12/25 20:10 06/14/25 08:47 Saccharomyces Boulardii 250 Mg Capsule PO 500 mg BIDWM ABRAHAM Administration Sodium Chloride 10 ml 06/12/25 16:47 06/13/25 15:19 Sodium Chloride Flush 0.9% 10 Ml Syringe IVP 10 ml PRN PRN Administration NEEDED PER PROVIDER ORDERS Sodium Chloride 10 ml 06/12/25 17:00 06/14/25 09:32 Sodium Chloride Flush 0.9% 10 Ml Syringe IVP Not Given 0100,0900,1700 ABRAHAM Vancomycin HCl 125 mg 06/14/25 09:00 06/14/25 08:49 Vancomycin 125 Mg Capsule PO 125 mg QID ABRAHAM Administration Objective Vital Signs/Intake & Output Reviewed Vital Signs: Yes Vital Signs: Vital Signs x48h Temp Pulse Pulse Resp BP Pulse Ox O2 Flow Rate 06/14/25 11:00 75 16 85/54 L 98 06/14/25 10:44 77 06/14/25 10:00 80 21 101/68 93 3 06/14/25 09:00 86 26 H 122/75 94 3 06/14/25 09:00 84 27 H 122/75 93 3 06/14/25 08:19 3 06/14/25 08:00 98.1 F 06/14/25 08:00 87 20 130/94 H 93 3 06/14/25 07:40 3 06/14/25 07:30 3 06/14/25 07:00 77 19 123/71 91 L 06/14/25 06:35 2 06/14/25 06:00 97.9 F 70 15 105/59 L 93 06/14/25 05:41 70 18 3 06/14/25 05:30 70 3 06/14/25 05:00 71 15 99/56 L 93 06/14/25 04:28 3 06/14/25 04:00 81 20 117/67 91 L Intake & Output: Intake & Output 06/11/25 06/12/25 06/13/25 06/14/25 23:59 23:59 23:59 23:59 Intake Total 220 / 220 378 / 378 962 / 962 Output Total 100 / 100 450 / 450 0 / 0 Balance 120 / 120 -72 / -72 962 / 962 Weight (kg) 37 kg 38 kg Objective General Appearance: positive Alert, Mild distress and Other (Small, cachectic in appearance. Bilateral temporal wasting noted. Some tripoding noted, accessory muscle use noted.); negative Anxious Eyes Bilateral: positive Normal inspection, PERRL and EOMI ENT: positive ENT inspection nml, Pharynx nml and No signs of dehydration Neck: positive Nml inspection, Thyroid nml and No JVD Respiratory: positive Chest non-tender and Wheezes (Minimal wheezes noted, some bilateral, bibasilar crackles noted); negative No respiratory distress (Mild- moderate), Breath sounds nml, Rales or Rhonchi Cardiovascular: positive Regular rate & rhythm, No murmur and No gallop; negative Tachycardia or Systolic murmur Abdomen: positive Non-tender, No organomegaly and No distention; negative Guarding or Splenomegaly Back: positive Nml inspection; negative CVA tenderness (R) or CVA tenderness (L) Skin: positive Color nml, No rash, Warm and Dry Extremities: positive Non-tender, Full ROM, Nml appearance and No pedal edema Neurologic/Psychiatric: positive Oriented x3, Motor nml and Mood/affect nml Lab Results 06/14/25 04:44 06/14/25 04:44 Other Labs: Lab Results x24hrs 06/14/25 06/14/25 06/13/25 Range/Units 04:44 04:44 12:30 WBC 7.8 (4.8-10.8) x10^3/uL RBC 4.30 (4.20-5.40) 10^6/uL Hgb 12.5 (12.0-16.0) g/dL Hct 36.3 L (37.0-47.0) % MCV 84.4 (81.0-99.0) fL MCH 29.1 (27.0-31.0) pg MCHC 34.4 (32.0-36.0) g/dL RDW 13.0 (12.0-15.0) % Plt Count 358 (130-450) 10^3/uL MPV 9.5 (7.9-10.8) fL VBG pH 7.426 H 7.431 H (7.31-7.41) VBG pCO2 67.4 H (41-51) mmHg VBG pO2 28.2 (25-47) mmHg VBG HCO3 45.2 H (23-28) mmol/L VBG Total CO2 47.3 H (24-29) mmol/L VBG O2 Saturation 38.0 L (60-80) % VBG Base Excess 20.7 H (-2 - +2) mmol/L Ionized Calcium 1.23 (1.09-1.30) mmol/L Sodium 132 L (135-145) mmol/L Potassium 4.4 (3.5-4.5) mmol/L Chloride 88 L (101-111) mmol/L Carbon Dioxide 41 H* (21-32) mmol/L Anion Gap 3.0 L (6-13) BUN 28 H (6-20) mg/dL Creatinine 0.8 (0.6-1.3) mg/dL Estimated GFR (MDRD) 71 L (>89) Glucose 150 H (74-104) mg/dL Calcium 9.6 (8.5-10.3) mg/dL Phosphorus 4.1 (2.5-5.0) mg/dL Magnesium 2.0 (1.7-2.3) mg/dL Total Bilirubin 1.5 H (0.2-1.0) mg/dL Direct Bilirubin 0.13 (0.03-0.18) mg/dL Indirect Bilirubin 1.4 mg/dL AST 18 (10-42) IU/L ALT 10 (10-60) IU/L Alkaline Phosphatase 57 (42-121) IU/L Total Protein 6.1 L (6.4-8.9) g/dL Albumin 3.7 (3.2-5.5) g/dL Globulin 2.4 (2.1-4.2) g/dL Albumin/Globulin Ratio 1.5 (1.0-2.2) Procalcitonin Immunoas (<0.5) ng/mL Nasal Screen MRSA (PCR) NEGATIVE (NEGATIVE) Stl C. cayetanensis PCR (Not Detected) Stool Rotavirus A PCR (Not Detected) Stl Adenov F 40/41 PCR (Not Detected) Stool Astrovirus (PCR) (Not Detected) Stool Campylobacter PCR (Not Detected) Stl C. diff Tox A/B PCR (Not Detected) Stool Cryptosporidium PCR (Not Detected) Stl Sh Tox Pr E STEC PCR (Not Detected) Stool E coli O157 PCR (Not Detected) Stl Enterotoxigenic E PCR (Not Detected) Stool EPEC (PCR) (Not Detected) Stl E. histolytica PCR (Not Detected) Stool Giardia Lamblia PCR (Not Detected) Stl P. shigelloides PCR (Not Detected) Stool Salmonella PCR (Not Detected) Stool Sapovirus (PCR) (Not Detected) Stl Shigella/EIEC PCR (Not Detected) St Y.enterocolitica PCR (Not Detected) Stool Vibrio (PCR) (Not Detected) Stl Vibrio cholerae PCR (Not Detected) Stl Enteroaggr Ecoli PCR (Not Detected) Stl Norovirus GI/GII PCR (Not Detected) 06/13/25 06/12/25 Range/Units 05:00 23:50 WBC (4.8-10.8) x10^3/uL RBC (4.20-5.40) 10^6/uL Hgb (12.0-16.0) g/dL Hct (37.0-47.0) % MCV (81.0-99.0) fL MCH (27.0-31.0) pg MCHC (32.0-36.0) g/dL RDW (12.0-15.0) % Plt Count (130-450) 10^3/uL MPV (7.9-10.8) fL VBG pH (7.31-7.41) VBG pCO2 (41-51) mmHg VBG pO2 (25-47) mmHg VBG HCO3 (23-28) mmol/L VBG Total CO2 (24-29) mmol/L VBG O2 Saturation (60-80) % VBG Base Excess (-2 - +2) mmol/L Ionized Calcium (1.09-1.30) mmol/L Sodium (135-145) mmol/L Potassium (3.5-4.5) mmol/L Chloride (101-111) mmol/L Carbon Dioxide (21-32) mmol/L Anion Gap (6-13) BUN (6-20) mg/dL Creatinine (0.6-1.3) mg/dL Estimated GFR (MDRD) (>89) Glucose (74-104) mg/dL Calcium (8.5-10.3) mg/dL Phosphorus (2.5-5.0) mg/dL Magnesium (1.7-2.3) mg/dL Total Bilirubin (0.2-1.0) mg/dL Direct Bilirubin (0.03-0.18) mg/dL Indirect Bilirubin mg/dL AST (10-42) IU/L ALT (10-60) IU/L Alkaline Phosphatase (42-121) IU/L Total Protein (6.4-8.9) g/dL Albumin (3.2-5.5) g/dL Globulin (2.1-4.2) g/dL Albumin/Globulin Ratio (1.0-2.2) Procalcitonin Immunoas < 0.05 (<0.5) ng/mL Nasal Screen MRSA (PCR) (NEGATIVE) Stl C. cayetanensis PCR Not Detected (Not Detected) Stool Rotavirus A PCR Not Detected (Not Detected) Stl Adenov F 40/41 PCR Not Detected (Not Detected) Stool Astrovirus (PCR) Not Detected (Not Detected) Stool Campylobacter PCR Not Detected (Not Detected) Stl C. diff Tox A/B PCR Detected A (Not Detected) Stool Cryptosporidium PCR Not Detected (Not Detected) Stl Sh Tox Pr E STEC PCR Not Detected (Not Detected) Stool E coli O157 PCR Not applicable (Not Detected) Stl Enterotoxigenic E PCR Not Detected (Not Detected) Stool EPEC (PCR) Not Detected (Not Detected) Stl E. histolytica PCR Not Detected (Not Detected) Stool Giardia Lamblia PCR Not Detected (Not Detected) Stl P. shigelloides PCR Not Detected (Not Detected) Stool Salmonella PCR Not Detected (Not Detected) Stool Sapovirus (PCR) Not Detected (Not Detected) Stl Shigella/EIEC PCR Not Detected (Not Detected) St Y.enterocolitica PCR Not Detected (Not Detected) Stool Vibrio (PCR) Not Detected (Not Detected) Stl Vibrio cholerae PCR Not Detected (Not Detected) Stl Enteroaggr Ecoli PCR Not Detected (Not Detected) Stl Norovirus GI/GII PCR Not Detected (Not Detected) Assessment/Plan Problem List (1) COPD exacerbation: Impression: Initially, patient presented with altered mentation due to CO2 retention. However, today, she is now complaining of increased work of breathing. She remains tachypneic, with some tripoding and accessory muscle use. Previous chest CT from 05/29 shows atelectasis and scarring in the bilateral lower lobes with mild emphysematous changes. She is chronically on 3 to 4 L of oxygen at home. Although her oxygenation is adequate, her work of breathing has increased. Procalcitonin has been ordered to ensure there is no superimposed bacterial process going on, negative. Will continue azithromycin for its anti- inflammatory properties and COPD exacerbation. No leukocytosis, although she has a slight leukopenia 2.7. Has remained afebrile. Lung exam with minimal expiratory wheezing, good air movement, some minute bibasilar crackles. Oral prednisone has been changed to IV Solu-Medrol. Continued today. Continue scheduled DuoNebs RT 4 times daily. Continue adequate pulmonary hygiene including incentive spirometer use to prevent atelectasis. Was transferred to ICU for BiPAP use for increased work of breathing. (2) Metabolic alkalosis with respiratory acidosis: (3) C. difficile colitis: Impression: The following plan is for the above 2 diagnoses: ABG analysis reveals metabolic alkalosis with appropriate respiratory compensation. She has had ongoing diarrhea for the past 3 days. She has minimal urine output, and has not had much p.o. intake. The metabolic alkalosis is likely due to ongoing diarrhea. C. difficile test did come back positive today. Continue gentle IVF rehydration. Treat with oral vancomycin. Continue probitioics. (4) Acute urinary retention: Impression: Resolved. Parmar removed. Continue to check PVRs. (5) COPD (chronic obstructive pulmonary disease): Impression: See above. Qualifiers: COPD type: emphysema Emphysema type: unspecified Qualified Code(s): J 43.9 - Emphysema, unspecified (6) CAD (coronary artery disease): Impression: No recent outside records have been noted. Patient does state that she has CAD and had a stent placed in the last few years. Will continue her home medications which include atorvastatin, Plavix. Blood pressure soft today; will hold amlodipine, lisinopril. Coreg dose decreased to 6.25 mg twice a day. Qualifiers: Coronary Disease-Associated Artery/Lesion type: unspecified vessel or lesion type [place] vs. transplanted heart: [place] heart Associated angina: w [facility] angina Qualified Code(s): I25.10 - Atherosclerotic heart disease of [place] coronary artery without angina pectoris
[2025-06-14] MEDS: LACTATED RINGERS 1,000 ML IV ONE (12:10)
--- NOTE | 2025-06-14 12:20 | ADVANCE CARE PLANNING NOTE ---
Advance Care Planning Planning Encounter Date: 06/14/25 Time: 12:38 Purpose: Establish goals of care, fill out POLST Parties in Attendance: Patient and patient's Decisional Capacity of the Patient: Fully decisional. Diagnosis for Encounter (1) Metabolic alkalosis with respiratory acidosis: Summary: ABG analysis reveals metabolic alkalosis with appropriate respiratory compensation. She has had ongoing diarrhea for the past 3 days. She has minimal urine output, and has not had much p.o. intake. The metabolic alkalosis is likely due to ongoing diarrhea. C. difficile test did come back positive today. Continue gentle IVF rehydration. Treat with oral vancomycin. Continue probitioics. (2) COPD (chronic obstructive pulmonary disease): Qualifiers: COPD type: emphysema Emphysema type: unspecified Qualified Code(s): J43.9 - Emphysema, unspecified Summary: Initially, patient presented with altered mentation due to CO2 retention. However, today, she is now complaining of increased work of breathing. She remains tachypneic, with some tripoding and accessory muscle use. Previous chest CT from 05/29 shows atelectasis and scarring in the bilateral lower lobes with mild emphysematous changes. She is chronically on 3 to 4 L of oxygen at home. Although her oxygenation is adequate, her work of breathing has increased. Procalcitonin has been ordered to ensure there is no superimposed bacterial process going on, negative. Will continue azithromycin for its anti- inflammatory properties and COPD exacerbation. No leukocytosis, although she has a slight leukopenia 2.7. Has remained afebrile. Lung exam with minimal expiratory wheezing, good air movement, some minute bibasilar crackles. Oral prednisone has been changed to IV Solu-Medrol. Continued today. Continue scheduled DuoNebs RT 4 times daily. Continue adequate pulmonary hygiene including incentive spirometer use to prevent atelectasis. Was transferred to ICU for BiPAP use for increased work of breathing. Encounter Additional Discussion: Patient is a 70-year-old female with a history of COPD on 2 to 3 L of oxygen who had presented for altered mental status and abdominal pain. Found to have urinary retention, with Parmar catheter placed, now experiencing trial of void. For shortness of breath, chest x-ray is clear, and wheezing is improved, but she is still experiencing some increased work of breathing. Tested positive for C. difficile colitis. Continue IV hydration, oral vancomycin[place] with her at home. They have been for over 30 years. She states that she has noticed a progressive decline in her health since about 2019. She was diagnosed with COPD about 5 to 10 years ago, but only started wearing oxygen at all times in the last couple years. She had COVID and RSV at the same time in 2019, followed by extensive cardiac problems requiring a cardiac catheterization and stent since, and has noticed a generalized decline since then. Spends most of her day in bed or walking around the house. She is worried about leaving the house as she is scared she may fall. She had 2 children, and 1 in the last few years, quite suddenly. She has many grandchildren and great-grandchildren. Spending time with them provides her with a lot of ayad. Most of them live in [place]. We talked about how, especially with her underlying comorbidities and her age, CPR and intubation may not prolong her life in a meaningful way. However, she would still like to be full code, and full treatment. If intubated, and difficult to extubate, she would only like to be connected to the ventilator for short period of time. Code Status: Attempt Resuscitation Time spent on advance care plannin
[2025-06-15 05:35] LABS: HCT - HEMATOCRIT 32.9 % (37.0-47.0); HGB - HEMOGLOBIN 11.0 g/dL (12.0-16.0); MEAN PLATELET VOLUME 9.4 fL (7.9-10.8); PLT - PLATELET COUNT 302.0 10^3/uL (130-450); RED CELL DISTRIBUTION WIDTH 13.2 % (12.0-15.0)
[2025-06-15 05:44] LABS: VBG PH 7.441 (7.31-7.41); VBG PH 7.465 (7.31-7.41)
[2025-06-15 05:45] LABS: VBG BASE EXCESS 19.1 mmol/L (-2 - +2); VBG PCO2 59.3 mmHg (41-51); VBG PO2 37.5 mmHg (25-47); VBG TOTAL CO2 44.9 mmol/L (24-29)
[2025-06-15 05:52] LABS: PHOSPHORUS 2.6 mg/dL (2.5-5.0)
[2025-06-15 06:11] LABS: BUN - BLOOD UREA NITROGEN 24.0 mg/dL (6-20); CARBON DIOXIDE - CO2 37.0 mmol/L (21-32); CREATININE 0.7 mg/dL (0.6-1.3); GFR - MDRD 83.0 (>89)
--- NOTE | 2025-06-15 10:01 | PROVIDER PROGRESS NOTE ---
Subjective Subjective Subjective: This morning, patient states that she is feeling a little bit better. Throughout the day, she did worsen a little bit. She had some diarrhea yesterday, which seems to have resolved overnight. She has ongoing shortness of breath. She states the diarrhea has been going on for about 3 days. She has never required a BiPAP in the past, but she has chronic COPD, and has had worsening shortness of breath and dyspnea. Current Medications Current Medications Current Medications: Current Medications Generic Name Dose Route Start Last Admin Trade Name Freq PRN Reason Stop Dose Admin Acetaminophen 650 mg 06/12/25 16:47 Acetaminophen 325 Mg Tablet PO Q4HR PRN Pain 1 to 4, or Fever Albuterol/Ipratropium 3 ml 06/12/25 19:00 06/15/25 07:14 Ipratropium/Albuterol 3 Ml Neb INH 3 ml RTQID ABRAHAM Administration Atorvastatin Calcium 40 mg 06/12/25 21:00 06/14/25 20:10 Atorvastatin 40 Mg Tablet PO 40 mg QPM ABRAHAM Administration Carvedilol 12.5 mg 06/12/25 21:00 06/15/25 08:16 Carvedilol 12.5 Mg Tablet PO 12.5 mg BID ABRAHAM Administration Clopidogrel Bisulfate 75 mg 06/13/25 09:00 06/15/25 08:16 Clopidogrel 75 Mg Tablet PO 75 mg DAILY ABRAHAM Administration Enoxaparin Sodium 40 mg 06/13/25 09:00 06/15/25 08:16 Enoxaparin 40 Mg/0.4 Ml Syringe SUBQ 40 mg DAILY ABRAHAM Administration Fluticasone Propionate 1 sprays 06/13/25 09:00 06/15/25 08:16 Fluticasone Nasal [place] RADHA Not Given DAILY ABRAHAM Lactated Ringer's 1,000 mls @ 75 mls/hr 06/13/25 18:00 06/14/25 21:31 Lr IV 75 mls/hr .[id number] ABRAHAM Administration Lorazepam 0.5 - 1 mg 06/12/25 17:13 06/14/25 21:31 Lorazepam 0.5 Mg Tablet PO 0.5 mg QPM PRN Administration Anxiety Magnesium Oxide 400 mg 06/12/25 18:00 06/15/25 08:15 Magnesium Oxide 400 Mg Tablet PO 400 mg DAILYWM ABRAHAM Administration Methylprednisolone 40 mg 06/14/25 09:00 06/15/25 08:16 Methylprednisolone Succinate 40 Mg/Ml Vial IVP 40 mg DAILY ABRAHAM Administration Ondansetron HCl 4 mg 06/12/25 16:47 Ondansetron Odt 4 Mg Tablet TL Q6HR PRN Nausea / Vomiting Ondansetron HCl 4 mg 06/12/25 16:47 06/13/25 15:19 Ondansetron 4 Mg/2 Ml Vial IVP 4 mg Q6HR PRN Administration Nausea / Vomiting Oxycodone HCl 5 mg 06/13/25 16:05 06/15/25 04:17 Oxycodone 5 Mg Tablet PO 5 mg Q8HR PRN Administration Moderate Pain (Level 4-6) Pantoprazole Sodium 40 mg 06/13/25 07:00 06/15/25 06:35 Pantoprazole 40 Mg Tablet PO 40 mg QDAC ABRAHAM Administration Saccharomyces Boulardii 500 mg 06/12/25 20:10 06/15/25 08:15 Saccharomyces Boulardii 250 Mg Capsule PO 500 mg BIDWM ABRAHAM Administration Sodium Chloride 10 ml 06/12/25 16:47 06/13/25 15:19 Sodium Chloride Flush 0.9% 10 Ml Syringe IVP 10 ml PRN PRN Administration NEEDED PER PROVIDER ORDERS Sodium Chloride 10 ml 06/12/25 17:00 06/15/25 08:16 Sodium Chloride Flush 0.9% 10 Ml Syringe IVP 10 ml 0100,0900,1700 ABRAHAM Administration Vancomycin HCl 125 mg 06/14/25 09:00 06/15/25 08:16 Vancomycin 125 Mg Capsule PO 125 mg QID ABRAHAM Administration Objective Vital Signs/Intake & Output Reviewed Vital Signs: Yes Vital Signs: Vital Signs x48h Temp Pulse Pulse Resp BP Pulse Ox O2 Flow Rate 06/15/25 09:00 81 18 137/77 H 92 2 06/15/25 08:55 2 06/15/25 08:00 97.7 F 83 22 129/92 H 90 L 2 06/15/25 07:16 2 06/15/25 07:16 81 22 06/15/25 07:00 78 18 152/79 H 91 L 1.5 06/15/25 07:00 1.5 06/15/25 06:00 73 14 146/81 H 93 2 06/15/25 05:00 2 06/15/25 05:00 74 19 135/84 H 93 2 06/15/25 04:14 65 06/15/25 04:00 97.8 F 82 14 92 2 06/15/25 03:53 68 2 06/15/25 03:00 78 15 111/62 93 Intake & Output: Intake & Output 06/12/25 06/13/25 06/14/25 06/15/25 23:59 23:59 23:59 23:59 Intake Total 220 / 220 378 / 378 3046 / 3046 120 / 120 Output Total 100 / 100 450 / 450 1100 / 1100 1550 / 1550 Balance 120 / 120 -72 / -72 1946 / 1946 -1430 / -1430 Weight (kg) 37 kg 38 kg 39 kg Objective General Appearance: positive Alert, Mild distress and Other (Small, cachectic in appearance. Bilateral temporal wasting noted. Some tripoding noted, accessory muscle use noted.); negative Anxious Eyes Bilateral: positive Normal inspection, PERRL and EOMI ENT: positive ENT inspection nml, Pharynx nml and No signs of dehydration Neck: positive Nml inspection, Thyroid nml and No JVD Respiratory: positive Chest non-tender and Wheezes (Minimal wheezes noted, some bilateral, bibasilar crackles noted); negative No respiratory distress (Mild- moderate), Breath sounds nml, Rales or Rhonchi Cardiovascular: positive Regular rate & rhythm, No murmur and No gallop; negative Tachycardia or Systolic murmur Abdomen: positive Non-tender, No organomegaly and No distention; negative Guarding or Splenomegaly Back: positive Nml inspection; negative CVA tenderness (R) or CVA tenderness (L) Skin: positive Color nml, No rash, Warm and Dry Extremities: positive Non-tender, Full ROM, Nml appearance and No pedal edema Neurologic/Psychiatric: positive Oriented x3, Motor nml and Mood/affect nml Lab Results 06/15/25 05:27 06/15/25 05:27 Other Labs: Lab Results x24hrs 06/15/25 Range/Units 05:27 WBC 10.3 (4.8-10.8) x10^3/uL RBC 3.83 L (4.20-5.40) 10^6/uL Hgb 11.0 L (12.0-16.0) g/dL Hct 32.9 L (37.0-47.0) % MCV 85.9 (81.0-99.0) fL MCH 28.7 (27.0-31.0) pg MCHC 33.4 (32.0-36.0) g/dL RDW 13.2 (12.0-15.0) % Plt Count 302 (130-450) 10^3/uL MPV 9.4 (7.9-10.8) fL VBG pH 7.441 H (7.31-7.41) VBG pCO2 59.3 H (41-51) mmHg VBG pO2 37.5 (25-47) mmHg VBG HCO3 43.1 H (23-28) mmol/L VBG Total CO2 44.9 H (24-29) mmol/L VBG O2 Saturation 62.0 (60-80) % VBG Base Excess 19.1 H (-2 - +2) mmol/L Ionized Calcium 1.23 (1.09-1.30) mmol/L Sodium 134 L (135-145) mmol/L Potassium 4.3 (3.5-4.5) mmol/L Chloride 93 L (101-111) mmol/L Carbon Dioxide 37 H (21-32) mmol/L Anion Gap 4.0 L (6-13) BUN 24 H (6-20) mg/dL Creatinine 0.7 (0.6-1.3) mg/dL Estimated GFR (MDRD) 83 L (>89) Glucose 90 (74-104) mg/dL Calcium 9.3 (8.5-10.3) mg/dL Phosphorus 2.6 (2.5-5.0) mg/dL Magnesium 1.9 (1.7-2.3) mg/dL Assessment/Plan Problem List (1) Acute and chronic respiratory failure: Qualifiers: Respiratory failure complication: hypoxia and hypercapnia Qualified Code(s): J96.21 - Acute and chronic respiratory failure with hypoxia; J96.22 - Acute and chronic respiratory failure with hypercapnia (2) COPD exacerbation: Impression: The following plan is for the above two assessments: Patient likely has end- stage COPD. At home, she wears 3 to 4 L of oxygen. Here, she has required noninvasive ventilation due to work of breathing. Initially, had some CO2 retention as well. She would benefit from noninvasive ventilation at home, at night, as well as as needed for increased work of breathing or altered mentation. Initially, patient presented with altered mentation due to CO2 retention. However, today, she is now complaining of increased work of breathing. She remains tachypneic, with some tripoding and accessory muscle use. Previous chest CT from 05/29 shows atelectasis and scarring in the bilateral lower lobes with mild emphysematous changes. She is chronically on 3 to 4 L of oxygen at home. Although her oxygenation is adequate, her work of breathing has increased. Procalcitonin has been ordered to ensure there is no superimposed bacterial process going on, negative. Completed three days of azithromycin for its anti- inflammatory properties in COPD exacerbation. No leukocytosis, although she has a slight leukopenia 2.7. Has remained afebrile. Lung exam with minimal expiratory wheezing, good air movement, some minute bibasilar crackles. Receied IV Solumedrol, transitioned to prednisone to complete five day steroid burst. Continue scheduled DuoNebs RT 4 times daily. Continue adequate pulmonary hygiene including incentive spirometer use to prevent atelectasis. (3) C. difficile colitis: Impression: Patient has had ongoing diarrhea for the past 3 days. She has minimal urine output, and has not had much p.o. intake. C. difficile positive. Continue gentle IVF rehydration. Treat with oral vancomycin. Continue probitioics. (4) Metabolic alkalosis with respiratory acidosis: Impression: VBG revealed metabolic alkalosis (attributed to GI loses with diarrhea) with appropriate respiratory compensation. Improving. (5) COPD (chronic obstructive pulmonary disease): Impression: See above. Qualifiers: COPD type: emphysema Emphysema type: unspecified Qualified Code(s): J 43.9 - Emphysema, unspecified (6) Acute urinary retention: Impression: Parmar removed. Continue to check PVRs. Some concern for retention overnight, straight catherization x 1 performed. (7) CAD (coronary artery disease): Impression: No recent outside records have been noted. Patient does state that she has CAD and had a stent placed in the last few years. Will continue her home medications which include atorvastatin, Plavix. Blood pressure soft; will hold amlodipine, lisinopril. Coreg dose decreased to 6.25 mg twice a day. Qualifiers: Coronary Disease-Associated Artery/Lesion type: unspecified vessel or lesion type [place] vs. transplanted heart: [place] heart Associated angina: w ithout angina Qualified Code(s): I25.10 - Atherosclerotic heart disease of [place] coronary artery without angina pectoris
[2025-06-15 13:32] LABS: ABG PH 7.46 (7.35-7.45)
[2025-06-15 13:33] LABS: ABG OXYGEN SATURATION 96 % (95-98); ABG PCO2 53 mmHg (34-45); ABG PO2 71 mmHg (83-108)
[2025-06-15 13:34] LABS: ABG BASE EXCESS 14.2 mmol/L (-2.0-3.0); ABG HCO3 38.2 mmol/L (22.0-26.0)
[2025-06-15 13:38] LABS: ABG TCO2 39.8 mmol/L (21.0-29.0)
--- NOTE | 2025-06-15 15:51 | PT Plan of Care ---
PT Inpatient Plan of Care DIAGNOSIS Diagnosis: acute on chronic RF; COPD exacerbation; c-diff Referring Provider: Rochelle Wan Patient Status: Inpatient CHIEF COMPLAINT Chief Complaint: abdominal pain, urinary retention Onset of Chief Complaint: SULFUR BURNER on 06/12/25 MEDICAL/SURGICAL HISTORY Surgical History Hx of hysterectomy Hx of cholecystectomy Hx of appendectomy Hx of endoscopy BALANCE/FUNCTIONAL RESULTS Sitting Balance: Good Standing Balance: Fair ASSESSMENT Assessment: The pt is a 70 y/o F who arrived to the ED on 06/12/25 due to worsening abdominal pain and urinary retention, she was hospitalized with acute on chronic RF, COPD exacerbation, and c-diff. Please see chart for complete medical hx. The pt was received resting comfortably supine in bed and presented today with functional B UE and LE strength, decreased activity tolerance that is likely near or at her baseline level, and anxiety when asked to perform functional mobility. At this time the pt does not appear to require continued skilled PT intervention while in the acute setting and it is recommended that he DC home without further therapy needs once medically stable as she appears to be at her baseline level for mobility. This plan was discussed with the pt, she was in agreement with this. At the end of the session the pt was sitting up in a chair with call light in reach and all needs met. RN was intermittently present throughout this assessment. Her Md was updated on pt's status and DC rec, no goals will be set as this is an eval only. PATIENT/FAMILY GOALS Patient/Family Goals: To go home PLAN Frequency: Evaluation only, no further P.T. DISCHARGE RECOMMENDATIONS Discharge Location: Previous Living Situation Support/Services Needed: No needs Other Discharge Equipment: pt owns all recommended DME Transport Needs at Discharge: Personal vehicle
[2025-06-15] MEDS: MULTIVITAMIN W/MINERALS TABLET PO SCH (16:29)
[2025-06-16] MEDS: ACETAMINOPHEN 325 MG TABLET PO PRN (02:09)
[2025-06-16 04:47] LABS: HCT - HEMATOCRIT 32.8 % (37.0-47.0); HGB - HEMOGLOBIN 11.1 g/dL (12.0-16.0); MEAN PLATELET VOLUME 9.8 fL (7.9-10.8); PLT - PLATELET COUNT 297.0 10^3/uL (130-450); RED CELL DISTRIBUTION WIDTH 13.1 % (12.0-15.0)
[2025-06-16 05:00] LABS: VBG PH 7.503 (7.31-7.41)
[2025-06-16 05:04] LABS: PHOSPHORUS 2.3 mg/dL (2.5-5.0)
[2025-06-16 05:19] LABS: BUN - BLOOD UREA NITROGEN 17.0 mg/dL (6-20); CARBON DIOXIDE - CO2 38.0 mmol/L (21-32); CREATININE 0.5 mg/dL (0.6-1.3); GFR - MDRD 123.0 (>89)
[2025-06-16] MEDS: NEUTRA-PHOS 250 MG TABLET PO SCH (07:24)
[2025-06-16] MEDS ORDERED: NEUTRA-PHOS 250 MG TABLET PO ONE (08:33)
--- NOTE | 2025-06-16 08:36 | PROVIDER PROGRESS NOTE ---
Subjective Prog Note Date Prog Note Date: 06/16/25 Prog Note Time: 08:34 Subjective Subjective: No acute events overnight. Patient is on 2 L via nasal cannula this morning. Some events over the day today, there was an issue with ordering her ventilator to her home. They ended up needing new orders for her concentrator. RT was able to assist with this. Orders have been signed. Being treated for C. difficile, Reports that her diarrhea is improving. Tolerating oral vancomycin. Mildly low Phos this morning. Electrolytes repleted per protocol. Patient has become more anxious throughout the day, reports that this is causing difficulty breathing. She denies any acute pain, but is notably being underdosed based on her home narcotic regimen. I do wonder whether this is contributing to her dyspnea. Current Medications Current Medications Current Medications: Current Medications Generic Name Dose Route Start Last Admin Trade Name Freq PRN Reason Stop Dose Admin Acetaminophen 650 mg 06/12/25 16:47 06/16/25 02:09 Acetaminophen 325 Mg Tablet PO 650 mg Q4HR PRN Administration Pain 1 to 4, or Fever Albuterol/Ipratropium 3 ml 06/12/25 19:00 06/16/25 08:28 Ipratropium/Albuterol 3 Ml Neb INH 3 ml RTQID ABRAHAM Administration Albuterol/Ipratropium 3 ml 06/16/25 07:10 Ipratropium/Albuterol 3 Ml Neb INH Q4HR PRN Wheezing Atorvastatin Calcium 40 mg 06/12/25 21:00 06/15/25 20:43 Atorvastatin 40 Mg Tablet PO 40 mg QPM ABRAHAM Administration Carvedilol 12.5 mg 06/12/25 21:00 06/16/25 08:24 Carvedilol 12.5 Mg Tablet PO 12.5 mg BID ABRAHAM Administration Clopidogrel Bisulfate 75 mg 06/13/25 09:00 06/16/25 08:24 Clopidogrel 75 Mg Tablet PO 75 mg DAILY ABRAHAM Administration Enoxaparin Sodium 40 mg 06/13/25 09:00 06/16/25 08:25 Enoxaparin 40 Mg/0.4 Ml Syringe SUBQ 40 mg DAILY ABRAHAM Administration Fluticasone Propionate 1 sprays 06/13/25 09:00 06/16/25 08:27 Fluticasone Nasal [place] RADHA Not Given DAILY ABRAHAM Lactated Ringer's 1,000 mls @ 75 mls/hr 06/13/25 18:00 06/16/25 00:08 Lr IV 75 mls/hr .[id number] ABRAHAM Administration Lorazepam 0.5 - 1 mg 06/12/25 17:13 06/15/25 20:43 Lorazepam 0.5 Mg Tablet PO 0.5 mg QPM PRN Administration Anxiety Magnesium Oxide 800 mg 06/16/25 09:00 Magnesium Oxide 400 Mg Tablet PO DAILYWM ABRAHMA Multivitamins/Minerals 1 tab 06/15/25 17:00 06/16/25 08:25 Multivitamin W/Minerals Tablet PO 1 tab DAILYWM ABRAHAM Administration Ondansetron HCl 4 mg 06/12/25 16:47 Ondansetron Odt 4 Mg Tablet TL Q6HR PRN Nausea / Vomiting Ondansetron HCl 4 mg 06/12/25 16:47 06/13/25 15:19 Ondansetron 4 Mg/2 Ml Vial IVP 4 mg Q6HR PRN Administration Nausea / Vomiting Oxycodone HCl 5 mg 06/13/25 16:05 06/16/25 04:50 Oxycodone 5 Mg Tablet PO 5 mg Q8HR PRN Administration Moderate Pain (Level 4-6) Pantoprazole Sodium 40 mg 06/13/25 07:00 06/16/25 06:52 Pantoprazole 40 Mg Tablet PO 40 mg QDAC ABRAHAM Administration Prednisone 40 mg 06/16/25 08:00 06/16/25 08:25 Prednisone 20 Mg Tablet PO 06/17/25 08:01 40 mg DAILYWM ABRAHAM Administration Saccharomyces Boulardii 500 mg 06/12/25 20:10 06/16/25 08:24 Saccharomyces Boulardii 250 Mg Capsule PO 500 mg BIDWM ABRAHAM Administration Sodium Chloride 10 ml 06/12/25 16:47 06/13/25 15:19 Sodium Chloride Flush 0.9% 10 Ml Syringe IVP 10 ml PRN PRN Administration NEEDED PER PROVIDER ORDERS Sodium Chloride 10 ml 06/12/25 17:00 06/16/25 08:25 Sodium Chloride Flush 0.9% 10 Ml Syringe IVP Not Given 0100,0900,1700 ABRAHAM Sodium Phosphate 250 mg 06/16/25 07:00 06/16/25 07:24 Neutra-Phos 250 Mg Tablet PO 06/16/25 09:01 250 mg Q2H ABRAHAM Administration Protocol Vancomycin HCl 125 mg 06/14/25 09:00 06/16/25 08:25 Vancomycin 125 Mg Capsule PO 125 mg QID ABRAHAM Administration Objective Vital Signs/Intake & Output Reviewed Vital Signs: Yes Vital Signs: Vital Signs x48h Temp Pulse Pulse Pulse Resp BP Pulse Ox 06/16/25 08:30 80 16 06/16/25 07:00 36.7 C 69 17 153/81 H 95 06/16/25 06:00 36.7 C 74 19 144/77 H 95 06/16/25 05:00 36.7 C 73 19 168/97 H 97 06/16/25 04:45 75 18 06/16/25 04:40 78 06/16/25 04:00 36.6 C 85 17 165/84 H 93 06/16/25 03:00 36.6 C 76 19 166/88 H 95 06/16/25 02:54 06/16/25 02:54 06/16/25 02:50 06/16/25 02:07 75 06/16/25 02:00 36.5 C 78 15 165/85 H 95 06/16/25 01:00 36.5 C 72 19 160/86 H 95 O2 Flow Rate 06/16/25 08:30 2 06/16/25 07:00 06/16/25 06:00 06/16/25 05:00 06/16/25 04:45 06/16/25 04:40 06/16/25 04:00 2 06/16/25 03:00 2 06/16/25 02:54 2 06/16/25 02:54 2 06/16/25 02:50 2 06/16/25 02:07 06/16/25 02:00 06/16/25 01:00 Intake & Output: Intake & Output 06/13/25 06/14/25 06/15/25 06/16/25 23:59 23:59 23:59 23:59 Intake Total 378 / 378 3046 / 3046 1580 / 1580 1091 / 1091 Output Total 450 / 450 1100 / 1100 3275 / 3275 715 / 715 Balance -72 / -72 1946 / 1946 -1695 / -1695 376 / 376 Weight (kg) 38 kg 39 kg 40.5 kg Objective Comments/Other: GEN: No acute distress. Frail-appearing. Mentating normally. HEENT: NC/AT, normal appearance of external ears and nose. Hearing baseline. Cardiac: Regular rate and rhythm, no murmurs. Generally euvolemic. Pulm: Lungs CTA bilaterally, no cough. Bilateral wheezes. Normal effort on 2 L. No adventitial lung sounds otherwise. Abdomen: Soft, nontender, nondistended. No rebound or guarding Extremities: Moves all 4 extremities equally. Normal tone. Neuro: Oriented x 3. Face symmetric, CN II through XII intact grossly. Sensation intact. Psych: Mood euthymic. Affect congruent. Lab Results 06/16/25 04:34 06/16/25 04:34 Other Labs: Lab Results x24hrs 06/16/25 06/15/25 Range/Units 04:34 13:20 WBC 8.8 (4.8-10.8) x10^3/uL RBC 3.82 L (4.20-5.40) 10^6/uL Hgb 11.1 L (12.0-16.0) g/dL Hct 32.8 L (37.0-47.0) % MCV 85.9 (81.0-99.0) fL MCH 29.1 (27.0-31.0) pg MCHC 33.8 (32.0-36.0) g/dL RDW 13.1 (12.0-15.0) % Plt Count 297 (130-450) 10^3/uL MPV 9.8 (7.9-10.8) fL Bld Gas Analysis Time 1332 Sample Site RIGHT BRACHIAL ABG pH 7.46 H (7.35-7.45) ABG pCO2 53 H (34-45) mmHg ABG pO2 71 L (83-108) mmHg ABG HCO3 38.2 H (22.0-26.0) mmol/L ABG Total CO2 39.8 H* (21.0-29.0) mmol/L ABG O2 Saturation 96 (95-98) % ABG Base Excess 14.2 H (-2.0-3.0) mmol/L Manjit Test NOT APPLICABLE VBG pH 7.503 H (7.31-7.41) Ionized Calcium 1.21 (1.09-1.30) mmol/L O2 Delivery Device NASAL CANNULA O2 Liters/Min 2.00 LPM Sodium 138 (135-145) mmol/L Potassium 3.7 (3.5-4.5) mmol/L Chloride 98 L (101-111) mmol/L Carbon Dioxide 38 H (21-32) mmol/L Anion Gap 2.0 L (6-13) BUN 17 (6-20) mg/dL Creatinine 0.5 L (0.6-1.3) mg/dL Estimated GFR (MDRD) 123 (>89) Glucose 106 H (74-104) mg/dL Calcium 8.9 (8.5-10.3) mg/dL Phosphorus 2.3 L (2.5-5.0) mg/dL Magnesium 1.7 (1.7-2.3) mg/dL Assessment/Plan Problem List (1) Acute and chronic respiratory failure: Qualifiers: Respiratory failure complication: hypoxia and hypercapnia Qualified Code(s): J96.21 - Acute and chronic respiratory failure with hypoxia; J96.22 - Acute and chronic respiratory failure with hypercapnia (2) COPD exacerbation: Impression: Resolved Patient had mixed hypoxemic and hypercapnic respiratory failure during this hospitalization. Normally on 2 L (Per her report, she previously said 3 to 4 L) O2 at baseline. She is back to 2 L with normal saturations. She had altered mentation with CO2 narcosis. This resolved with BiPAP. She has never been on BiPAP before. 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 She would benefit from noninvasive ventilation at home to be used at hours of sleep as well as as needed for dyspnea or altered mentation. Other differentials includes pneumonia either viral or bacterial. Patient has no leukocytosis. Imaging not suggestive of any focal consolidations. Consideration for alpha-[address] from earlier this hospitalization reveals atelectasis with scarring in the bilateral lower lobes and mild emphysematous changes. Completed 3 days of azithromycin. Completed 5-day steroid burst. - Continue DuoNebs 4 times daily - Pulmonary toileting - Consider restarting steroid pulse with taper if hypoxemia/dyspnea worsens - Needs outpatient pulmonary follow-up - Continue nightly BiPAP while in house - RT assisting with home orders for Trilogy and oxygen concentrator - Continue nasal fluticasone - Resume POWDER BLENDER budesonide and Spiriva at discharge - Medically stable for discharge once she has her ventilator and oxygen at home. (3) C. difficile colitis: Impression: Diarrhea has been improving on oral vancomycin. Patient had diarrhea during this hospitalization. She had been treated with a macrolide. Otherwise no significant recent antibiotic exposure. Was found to be C. difficile PCR positive. Toxins were not run. - Will discontinue fluids, patient is eating and drinking - Continue oral vancomycin - Continue probiotic (4) Metabolic alkalosis with respiratory acidosis: Impression: Improved. Likely secondary to GI losses with inappropriate respiratory compensation. - Manage as above (5) Acute urinary retention: Impression: Resolved Patient voiding appropriately. Had retention early in her hospitalizatino, jacobs was placed. Removed 05/14. - Bladder protocol with straight cath prn (6) CAD (coronary artery disease): Impression: Stable, no chest pain or pressure Home meds include statin, plavix, BB Has a documented history of hypertension. She is reportedly on lisinopril 20 mg and amlodipine 2.5 mg daily. She has been normotensive here. - Continue coreg 6.25mg bid (can increase if hypertensive) - Continue atorvastin, plavix - Hold amlodipine and lisinopril, can resume with PCP after discharge. Qualifiers: Associated angina: without angina Coronary Disease-Associated Artery/Lesion type: unspecified vessel or lesion type [place] vs. transplanted heart: [place] heart Qualified Code(s): I25.10 - Atherosclerotic heart disease of [place] coronary artery without angina pectoris (7) Hypomagnesemia: (8) Hypophosphatemia: Impression: Patient with low Phos and low mag throughout this hospitalization. She has been repleted both orally and IV. Magnesium and phosphate both low as of this morning. - Increase magnesium to 800 mg daily - Phosphate replete per protocol - Repeat BMP a.m. (9) Anxiety: Impression: Patient with a longstanding history of anxiety, insomnia. She is normally on 0.5 to 1 mg p.o. Ativan that she takes at night for insomnia or during the day for anxiety. Started having a panic attack on 06/16. Have resumed her POWDER BLENDER Ativan 0.5 mg. - Oral Ativan 0.5 mg every 6 hours as needed - Continue to monitor for respiratory depression - Nightly Ativan, Will help with compliance on BiPAP I spent a total of 54 minutes in the care of this patient today. This time was spent reviewing labs, vital signs, imaging, interviewing and examining the patient, and discussing plan of care with them and their other care providers. Patient is at high risk for decompensation including mortality and loss of bodily function. Lab review as above. Monitor electrolytes, kidney function, orders for ongoing monitoring. Extensive time spent coordinating with outpatient orders for ventilator and oxygen. Collaboration with respiratory therapy and case management.
[2025-06-16] MEDS: MAGNESIUM OXIDE 400 MG TABLET PO SCH (10:56)
[2025-06-16] MEDS: oxyCODONE 5 MG TABLET PO PRN (11:49)
[2025-06-17 05:18] LABS: PHOSPHORUS 2.4 mg/dL (2.5-5.0)
[2025-06-17 05:23] LABS: BUN - BLOOD UREA NITROGEN 12.0 mg/dL (6-20); CARBON DIOXIDE - CO2 39.0 mmol/L (21-32); CREATININE 0.5 mg/dL (0.6-1.3); GFR - MDRD 123.0 (>89)
[2025-06-17 06:03] LABS: VBG PH 7.562 (7.31-7.41)
[2025-06-17] MEDS: NEUTRA-PHOS 250 MG TABLET PO SCH (07:01)
[2025-06-17] MEDS: MAGNESIUM OXIDE 400 MG TABLET PO SCH (07:04)
--- NOTE | 2025-06-17 07:57 | PROVIDER PROGRESS NOTE ---
Subjective Prog Note Date Prog Note Date: 06/17/25 Prog Note Time: 07:54 Subjective Subjective: Vital signs stable this morning. Patient continues to require 2-3 L of oxygen. Not charted on BiPAP last night. Respiratory therapist notes report that she refused around 0200. Her labs this morning reveal a K of 3.0, CO2 39, creatinine 0.5, Phos of 2.4. Receiving K-Phos per repletion protocol. Venous pH this morning 7.56, up from 7.50 and 7.44 in the previous 2 days. Multiple conversations between RT and the DME vendor today. Patient and her are seeking DME through a different vendor. [facility] is assisting. is understandably concerned with making sure that they have BiPAP before he gets home. Her HCO3 is already rising here. Current Medications Current Medications Current Medications: Current Medications Generic Name Dose Route Start Last Admin Trade Name Freq PRN Reason Stop Dose Admin Acetaminophen 650 mg 06/12/25 16:47 06/16/25 02:09 Acetaminophen 325 Mg Tablet PO 650 mg Q4HR PRN Administration Pain 1 to 4, or Fever Albuterol/Ipratropium 3 ml 06/12/25 19:00 06/17/25 07:38 Ipratropium/Albuterol 3 Ml Neb INH 3 ml RTQID ABRAHAM Administration Albuterol/Ipratropium 3 ml 06/16/25 07:10 Ipratropium/Albuterol 3 Ml Neb INH Q4HR PRN Wheezing Atorvastatin Calcium 40 mg 06/12/25 21:00 06/16/25 20:24 Atorvastatin 40 Mg Tablet PO 40 mg QPM ABRAHAM Administration Carvedilol 12.5 mg 06/12/25 21:00 06/16/25 20:24 Carvedilol 12.5 Mg Tablet PO 12.5 mg BID ABRAHAM Administration Clopidogrel Bisulfate 75 mg 06/13/25 09:00 06/16/25 08:24 Clopidogrel 75 Mg Tablet PO 75 mg DAILY ABRAHAM Administration Enoxaparin Sodium 40 mg 06/13/25 09:00 06/16/25 08:25 Enoxaparin 40 Mg/0.4 Ml Syringe SUBQ 40 mg DAILY ABRAHAM Administration Fluticasone Propionate 1 sprays 06/13/25 09:00 06/16/25 08:27 Fluticasone Nasal [place] RADHA Not Given DAILY ABRAHAM Lorazepam 0.5 mg 06/16/25 10:33 06/16/25 20:24 Lorazepam 0.5 Mg Tablet PO 0.5 mg QPM PRN Administration Anxiety Lorazepam 0.5 mg 06/16/25 14:59 06/17/25 01:23 Lorazepam 0.5 Mg Tablet PO 0.5 mg Q6H PRN Administration Anxiety Magnesium Oxide 800 mg 06/16/25 09:00 06/17/25 07:01 Magnesium Oxide 400 Mg Tablet PO 800 mg DAILYWM ABRAHAM Administration Magnesium Oxide 400 mg 06/17/25 07:00 06/17/25 07:04 Magnesium Oxide 400 Mg Tablet PO 06/17/25 13:01 Not Given Q6H ABRAHAM Protocol Multivitamins/Minerals 1 tab 06/15/25 17:00 06/16/25 08:25 Multivitamin W/Minerals Tablet PO 1 tab DAILYWM ABRAHAM Administration Ondansetron HCl 4 mg 06/12/25 16:47 Ondansetron Odt 4 Mg Tablet TL Q6HR PRN Nausea / Vomiting Ondansetron HCl 4 mg 06/12/25 16:47 06/13/25 15:19 Ondansetron 4 Mg/2 Ml Vial IVP 4 mg Q6HR PRN Administration Nausea / Vomiting Oxycodone HCl 10 mg 06/16/25 11:08 06/17/25 04:51 Oxycodone 5 Mg Tablet PO 10 mg Q4HR PRN Administration Moderate Pain (Level 4-6) Pantoprazole Sodium 40 mg 06/13/25 07:00 06/17/25 07:01 Pantoprazole 40 Mg Tablet PO 40 mg QDAC ABRAHAM Administration Prednisone 40 mg 06/16/25 08:00 06/16/25 08:25 Prednisone 20 Mg Tablet PO 06/17/25 08:01 40 mg DAILYWM ABRAHAM Administration Saccharomyces Boulardii 500 mg 06/12/25 20:10 06/16/25 17:00 Saccharomyces Boulardii 250 Mg Capsule PO 500 mg BIDWM ABRAHAM Administration Sodium Chloride 10 ml 06/12/25 16:47 06/13/25 15:19 Sodium Chloride Flush 0.9% 10 Ml Syringe IVP 10 ml PRN PRN Administration NEEDED PER PROVIDER ORDERS Sodium Chloride 10 ml 06/12/25 17:00 06/17/25 00:35 Sodium Chloride Flush 0.9% 10 Ml Syringe IVP Not Given 0100,0900,1700 [facility] Sodium Phosphate 250 mg 06/17/25 06:00 06/17/25 07:01 Neutra-Phos 250 Mg Tablet PO 06/17/25 08:01 250 mg Q2H [facility] Administration Protocol Vancomycin HCl 125 mg 06/14/25 09:00 06/16/25 20:24 Vancomycin 125 Mg Capsule PO 125 mg QID ABRAHAM Administration Objective Vital Signs/Intake & Output Reviewed Vital Signs: Yes Vital Signs: Vital Signs x48h Temp Pulse Pulse Resp BP Pulse Ox O2 Flow Rate 06/17/25 07:38 94 18 3 06/17/25 07:00 2 06/17/25 06:00 37.0 C 82 18 180/92 H 93 06/17/25 05:00 37.0 C 86 24 161/99 H 94 06/17/25 04:26 87 06/17/25 04:24 37.1 C 88 19 155/93 H 94 06/17/25 04:05 99 06/17/25 03:40 37.1 C 93 20 168/82 H 96 06/17/25 03:33 86 06/17/25 03:03 37.0 C 89 18 180/100 H 96 2 06/17/25 03:00 2 06/17/25 02:00 37.0 C 99 16 144/89 H 91 L 2 06/17/25 01:25 2 06/17/25 01:23 2 06/17/25 01:09 37.0 C 83 19 169/92 H 94 06/17/25 00:30 82 06/17/25 00:00 81 17 175/97 H 93 06/17/25 00:00 37.0 C 87 30 H 167/96 H 95 Intake & Output: Intake & Output 06/14/25 06/15/25 06/16/25 06/17/25 23:59 23:59 23:59 23:59 Intake Total 3046 / 3046 1580 / 1580 2601 / 2601 400 / 400 Output Total 1100 / 1100 3275 / 3275 2200 / 2200 1782 / 1782 Balance 1946 / 1946 -1695 / -1695 401 / 401 -1382 / -1382 Weight (kg) 38 kg 39 kg 40.5 kg 40 kg Objective Comments/Other: GEN: No acute distress. Frail-appearing. Mentating normally. HEENT: NC/AT, normal appearance of external ears and nose. Hearing baseline. Cardiac: Regular rate and rhythm, no murmurs. Generally euvolemic. Pulm: Lungs CTA bilaterally, no cough. Diffuse wheezes. Fine rales. Normal effort on 2 L Abdomen: Soft, nontender, nondistended. No rebound or guarding Extremities: Moves all 4 extremities equally. Normal tone. Neuro: Oriented x 3. Face symmetric, CN II through XII intact grossly. Sensation intact. Psych: Mood euthymic. Affect congruent. Lab Results 06/16/25 04:34 06/17/25 04:50 Other Labs: Lab Results x24hrs 06/17/25 Range/Units 04:50 VBG pH 7.562 H (7.31-7.41) Ionized Calcium 1.14 (1.09-1.30) mmol/L Sodium 137 (135-145) mmol/L Potassium 3.0 L (3.5-4.5) mmol/L Chloride 93 L (101-111) mmol/L Carbon Dioxide 39 H* (21-32) mmol/L Anion Gap 5.0 L (6-13) BUN 12 (6-20) mg/dL Creatinine 0.5 L (0.6-1.3) mg/dL Estimated GFR (MDRD) 123 (>89) Glucose 111 H (74-104) mg/dL Calcium 8.7 (8.5-10.3) mg/dL Phosphorus 2.4 L (2.5-5.0) mg/dL Magnesium 1.7 (1.7-2.3) mg/dL Assessment/Plan Problem List (1) Acute and chronic respiratory failure: Qualifiers: Respiratory failure complication: hypoxia and hypercapnia Qualified Code(s): J96.21 - Acute and chronic respiratory failure with hypoxia; J96.22 - Acute and chronic respiratory failure with hypercapnia (2) COPD exacerbation: Impression: Most resolved. Has increasing CO2 on her metabolic panel in the setting of not tolerating ventilator at night. RT has been troubleshooting getting her started on BiPAP at night. Recall that the patient initially presented with mixed hypoxemic and hypercapnic respiratory failure. Normally on 2 L O2 at baseline. She is back to 2 L with normal saturations. She had altered mentation with CO2 narcosis early in her hospitalization was moved to the ICU and started on BiPAP. She has never been on BiPAP before. 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 She would benefit from noninvasive ventilation at home to be used at hours of sleep as well as as needed for dyspnea or altered mentation. Other differentials includes pneumonia either viral or bacterial. Patient has no leukocytosis. Imaging not suggestive of any focal consolidations. Consideration for alpha-[address] from earlier this hospitalization reveals atelectasis with scarring in the bilateral lower lobes and mild emphysematous changes. Completed 3 days of azithromycin. Completed 5-day steroid burst. - Continue DuoNebs 4 times daily - Pulmonary toileting - Needs outpatient pulmonary follow-up - Continue nightly BiPAP, Appreciate RT helping. - Both respiratory therapy here and [place] been working with DME vendor to get trilogy and oxygen concentrator delivered to her home. - Continue nasal fluticasone - Resume INSPECTOR RECEIVING budesonide and Spiriva at discharge - Medically safe for discharge once they have a delivery date for DME. Does not have to remain in house until DME is actually delivered. (3) C. difficile colitis: Impression: Diarrhea has been improving on oral vancomycin. Remains afebrile. Has never had a leukocytosis during this hospitalization. Patient had diarrhea during this hospitalization. She had been treated with a macrolide. Otherwise no significant recent antibiotic exposure. Was found to be C. difficile PCR positive. Toxins were not run. - Will discontinue fluids, patient is eating and drinking - Continue oral vancomycin - Continue probiotic (4) Metabolic alkalosis with respiratory acidosis: Impression: Likely secondary to GI losses with inappropriate respiratory compensation. - Manage as above (5) Acute urinary retention: Impression: Parmar removed 06/17. Previous notes had indicated this was removed on 06/14. This is not the case. Unclear etiology, but likely exacerbated by patient's immobility. - Continue bladder protocol with straight cath. (6) CAD (coronary artery disease): Impression: Stable, no chest pain or pressure Home meds include statin, plavix, BB Has a documented history of hypertension. She is reportedly on lisinopril 20 mg and amlodipine 2.5 mg daily. She has been normotensive here. - Continue coreg 6.25mg bid (can increase if hypertensive) - Continue atorvastin, plavix - Hold amlodipine and lisinopril, can resume with PCP after discharge. Qualifiers: Associated angina: without angina Coronary Disease-Associated Artery/Lesion type: unspecified vessel or lesion type [place] vs. transplanted heart: [place] heart Qualified Code(s): I25.10 - Atherosclerotic heart disease of [place] coronary artery without angina pectoris (7) Hypomagnesemia: (8) Hypophosphatemia: Impression: Potassium phosphate replaced per protocol this morning. - Continue magnesium to 800 mg daily - Repeat BMP a.m. (9) Anxiety: Impression: Patient with a longstanding history of anxiety, insomnia. She is normally on 0.5 to 1 mg p.o. Ativan that she takes at night for insomnia or during the day for anxiety. Started having a panic attack on 06/16. Have resumed her INSPECTOR RECEIVING Ativan 0.5 mg. - Oral Ativan 0.5 mg every 6 hours as needed - Continue to monitor for respiratory depression - Nightly Ativan, may help with compliance on BiPAP I spent a total of 43 minutes in the care of this patient today. This time was spent reviewing labs, vital signs, imaging, interviewing and examining the patient, and discussing plan of care with them and their other care providers.
[2025-06-18 04:31] LABS: VBG PH 7.615 (7.31-7.41)
[2025-06-18 04:45] LABS: PHOSPHORUS 3.2 mg/dL (2.5-5.0)
[2025-06-18 04:57] LABS: BUN - BLOOD UREA NITROGEN 16.0 mg/dL (6-20); CARBON DIOXIDE - CO2 41.0 mmol/L (21-32); CREATININE 0.5 mg/dL (0.6-1.3); GFR - MDRD 123.0 (>89)
[2025-06-18] MEDS: CALCIUM CARBONATE CHEW 500 MG TABLET PO SCH (06:20)
[2025-06-18] MEDS: POTASSIUM CHLOR 10 MEQ/100 ML 10 MEQ/100 ML BAG IV SCH (06:35)
--- NOTE | 2025-06-18 11:12 | PROVIDER PROGRESS NOTE ---
Subjective Prog Note Date Prog Note Date: 06/18/25 Prog Note Time: 11:07 Subjective Subjective: No acute events overnight. Patient has not been using BiPAP at night reliably. Her CO2 is rising in concert with that. Still mentating reasonably normally. She is fatigued but not overly somnolent. Has not been eating much. Discussed with RT, will try and put her on BiPAP throughout the day today. They are also working with various [employer] to try and secure her home equipment. Patient denies fevers or chills, chest pain, dyspnea. She is eager to get home. Current Medications Current Medications Current Medications: Current Medications Generic Name Dose Route Start Last Admin Trade Name Freq PRN Reason Stop Dose Admin Acetaminophen 650 mg 06/12/25 16:47 06/16/25 02:09 Acetaminophen 325 Mg Tablet PO 650 mg Q4HR PRN Administration Pain 1 to 4, or Fever Albuterol/Ipratropium 3 ml 06/12/25 19:00 06/18/25 07:01 Ipratropium/Albuterol 3 Ml Neb INH 3 ml RTQID ABRAHAM Administration Albuterol/Ipratropium 3 ml 06/16/25 07:10 Ipratropium/Albuterol 3 Ml Neb INH Q4HR PRN Wheezing Atorvastatin Calcium 40 mg 06/12/25 21:00 06/17/25 20:55 Atorvastatin 40 Mg Tablet PO 40 mg QPM ABRAHAM Administration Carvedilol 12.5 mg 06/12/25 21:00 06/18/25 08:09 Carvedilol 12.5 Mg Tablet PO 12.5 mg BID ABRAHAM Administration Clopidogrel Bisulfate 75 mg 06/13/25 09:00 06/18/25 08:09 Clopidogrel 75 Mg Tablet PO 75 mg DAILY ABRAHAM Administration Enoxaparin Sodium 40 mg 06/13/25 09:00 06/18/25 08:09 Enoxaparin 40 Mg/0.4 Ml Syringe SUBQ 40 mg DAILY ABRAHAM Administration Fluticasone Propionate 1 sprays 06/13/25 09:00 06/18/25 08:09 Fluticasone Nasal [place] RADHA 1 spr DAILY ABRAHAM Administration Potassium Chloride 10 meq in 100 mls @ 100 mls/hr 06/18/25 06:00 06/18/25 09:37 Potassium Chloride IV 06/18/25 11:59 70 mls/hr Q1H ABRAHAM Administration Protocol Lisinopril 20 mg 06/17/25 09:00 06/18/25 08:09 Lisinopril 20 Mg Tablet PO 20 mg BID ABRAHAM Administration Lorazepam 0.5 mg 06/16/25 10:33 06/18/25 03:08 Lorazepam 0.5 Mg Tablet PO 0.5 mg QPM PRN Administration Anxiety Lorazepam 0.5 mg 06/16/25 14:59 06/18/25 10:39 Lorazepam 0.5 Mg Tablet PO 0.5 mg Q6H PRN Administration Anxiety Magnesium Oxide 800 mg 06/16/25 09:00 06/18/25 08:08 Magnesium Oxide 400 Mg Tablet PO 800 mg DAILYWM ABRAHAM Administration Multivitamins/Minerals 1 tab 06/15/25 17:00 06/18/25 08:08 Multivitamin W/Minerals Tablet PO 1 tab DAILYWM ABRAHAM Administration Ondansetron HCl 4 mg 06/12/25 16:47 Ondansetron Odt 4 Mg Tablet TL Q6HR PRN Nausea / Vomiting Ondansetron HCl 4 mg 06/12/25 16:47 06/13/25 15:19 Ondansetron 4 Mg/2 Ml Vial IVP 4 mg Q6HR PRN Administration Nausea / Vomiting Oxycodone HCl 10 mg 06/16/25 11:08 06/18/25 03:08 Oxycodone 5 Mg Tablet PO 10 mg Q4HR PRN Administration Moderate Pain (Level 4-6) Pantoprazole Sodium 40 mg 06/13/25 07:00 06/18/25 06:20 Pantoprazole 40 Mg Tablet PO 40 mg QDAC ABRAHAM Administration Saccharomyces Boulardii 500 mg 06/12/25 20:10 06/18/25 08:08 Saccharomyces Boulardii 250 Mg Capsule PO 500 mg BIDWM ABRAHAM Administration Sodium Chloride 10 ml 06/12/25 16:47 06/18/25 06:35 Sodium Chloride Flush 0.9% 10 Ml Syringe IVP 10 ml PRN PRN Administration NEEDED PER PROVIDER ORDERS Sodium Chloride 10 ml 06/12/25 17:00 06/18/25 08:09 Sodium Chloride Flush 0.9% 10 Ml Syringe IVP 10 ml 0100,0900,1700 ABRAHAM Administration Vancomycin HCl 125 mg 06/14/25 09:00 06/18/25 08:08 Vancomycin 125 Mg Capsule PO 125 mg QID ABRAHAM Administration Objective Vital Signs/Intake & Output Reviewed Vital Signs: Yes Vital Signs: Vital Signs x48h Temp Pulse Pulse Resp BP Pulse Ox O2 Flow Rate 06/18/25 11:00 81 23 150/81 H 95 1 06/18/25 11:00 2 06/18/25 10:22 2 06/18/25 10:00 81 29 H 130/84 97 06/18/25 09:00 96 24 135/83 H 97 2 06/18/25 08:00 37.0 C 99 25 H 115/72 95 2 06/18/25 07:02 98 18 2 06/18/25 07:02 2 06/18/25 07:00 91 19 141/89 H 95 2 06/18/25 07:00 2 06/18/25 06:00 95 17 143/78 H 93 2 06/18/25 05:00 2 06/18/25 05:00 85 15 116/71 98 2 06/18/25 04:00 36.7 C 82 11 L 130/74 98 2 06/18/25 03:20 2 Intake & Output: Intake & Output 06/15/25 06/16/25 06/17/25 06/18/25 23:59 23:59 23:59 23:59 Intake Total 1580 / 1580 2601 / 2601 990 / 990 550 / 550 Output Total 3275 / 3275 2200 / 2200 3307 / 3307 0 / 0 Balance -1695 / -1695 401 / 401 -2317 / -2317 550 / 550 Weight (kg) 39 kg 40.5 kg 40 kg 39.5 kg Objective Comments/Other: GEN: No acute distress. Frail-appearing. Mentating normally. HEENT: NC/AT, normal appearance of external ears and nose. Hearing baseline. Cardiac: Regular rate and rhythm, no murmurs. Generally euvolemic. Pulm: Lungs CTA bilaterally, no cough. Normal effort on 1 L. Abdomen: Soft, nontender, nondistended. No rebound or guarding Extremities: Moves all 4 extremities equally. Normal tone. Neuro: Oriented x 3. Face symmetric, CN II through XII intact grossly. Sensation intact. Psych: Mood euthymic. Affect congruent. Lab Results 06/16/25 04:34 06/18/25 04:21 Other Labs: Lab Results x24hrs 06/18/25 Range/Units 04:21 VBG pH 7.615 H* (7.31-7.41) Ionized Calcium 1.09 (1.09-1.30) mmol/L Sodium 138 (135-145) mmol/L Potassium 2.8 L (3.5-4.5) mmol/L Chloride 95 L (101-111) mmol/L Carbon Dioxide 41 H* (21-32) mmol/L Anion Gap 2.0 L (6-13) BUN 16 (6-20) mg/dL Creatinine 0.5 L (0.6-1.3) mg/dL Estimated GFR (MDRD) 123 (>89) Glucose 124 H (74-104) mg/dL Calcium 8.5 (8.5-10.3) mg/dL Phosphorus 3.2 (2.5-5.0) mg/dL Magnesium 1.8 (1.7-2.3) mg/dL Assessment/Plan Problem List (1) Acute and chronic respiratory failure: Qualifiers: Respiratory failure complication: hypoxia and hypercapnia Qualified Code(s): J96.21 - Acute and chronic respiratory failure with hypoxia; J96.22 - Acute and chronic respiratory failure with hypercapnia (2) COPD exacerbation: Impression: Continues to have worsened hypercapnia in the setting of not using BiPAP at night. Recall that the patient initially presented with mixed hypoxemic and hypercapnic respiratory failure. Normally on 2 L O2 at baseline. She is back to 2 L with normal saturations. She had altered mentation with CO2 narcosis early in her hospitalization was moved to the ICU and started on BiPAP. She has never been on BiPAP before. 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 She would benefit from noninvasive ventilation at home to be used at hours of sleep as well as as needed for dyspnea or altered mentation. Other differentials includes pneumonia either viral or bacterial. Patient has no leukocytosis. Imaging not suggestive of any focal consolidations. Consideration for alpha-[address] from earlier this hospitalization reveals atelectasis with scarring in the bilateral lower lobes and mild emphysematous changes. Completed 3 days of azithromycin. Completed 5-day steroid burst. - Will trial BiPAP through the day today, appreciate RT. Continue nightly BiPAP. - Continue DuoNebs 4 times daily - Pulmonary toileting - Needs outpatient pulmonary follow-up - Both respiratory therapy here and [place] been working with DME vendor to get trilogy and oxygen concentrator delivered to her home. o Case management also reaching out to [place]. - Continue nasal fluticasone - Resume PARTS RUNNER budesonide and Spiriva at discharge - Medically safe for discharge once they have a delivery date for DME. Does not have to remain in house until DME is actually delivered. (3) C. difficile colitis: Impression: Still having a few episodes of diarrhea. 3 today she shares. Remains afebrile. Has never had a leukocytosis during this hospitalization. Patient had diarrhea during this hospitalization. She had been treated with a macrolide. Otherwise no significant recent antibiotic exposure. Was found to be C. difficile PCR positive. Toxins were not run. - Will resume a liter of NS maintenance fluid today given her alkalosis as above. - Continue oral vancomycin, 10-day treatment. EOT 06/24 - Continue probiotic (4) Metabolic alkalosis with respiratory acidosis: Impression: Likely secondary to GI losses with inappropriate respiratory compensation. Interestingly, her GI losses have slowed, but she is still having persistent alkalosis with elevated HCO3. - Manage as above (5) Acute urinary retention: Impression: Parmar removed 06/17. Previous notes had indicated this was removed on 06/14. This is not the case. Unclear etiology, but likely exacerbated by patient's immobility. She has now required straight cath x 1 since Parmar was removed. She is not urinating otherwise. Overnight, she was not making of urine to necessitate straight cath. This morning, she began making urine, and has already been straight cathed twice for 600 and 800 mL respectively. - Continue bladder protocol with straight cath, likely replace indwelling catheter - Fluids as above - Encourage mobility, up to the chair. (6) Protein calorie malnutrition: Impression: Patient meets criteria for severe protein calorie malnutrition. Her states that she does not eat much at home. He is had to take her to the hospital before for poor appetite. Patient is 39 kg. Her BMI is 15.4. She has demonstrated weight loss of 6% over the last month. She is markedly reduced in her functional capacity due to her pulmonary function. - Will start on Remeron, the hypnotic effects may help with BiPAP compliance. - Dietitian following, appreciate their recommendations. Qualifiers: Protein-calorie malnutrition severity: severe Qualified Code(s): E43 - Unspecified severe protein-calorie malnutrition (7) CAD (coronary artery disease): Impression: Stable. Unchanged. Patient denies any anginal symptoms or equivalents. She is starting to be more hypertensive, would likely start her back on amlodipine as it may have some pulmonary vasodilatory effects. Home meds include statin, plavix, BB Has a documented history of hypertension. She is reportedly on lisinopril 20 mg and amlodipine 2.5 mg daily. She has been normotensive here. - Continue coreg 6.25mg bid (can increase if hypertensive) - Continue atorvastin, plavix - Resume amlodipine at 5 mg - Hold lisinopril, can resume with PCP after discharge. Qualifiers: Associated angina: without angina Coronary Disease-Associated Artery/Lesion type: unspecified vessel or lesion type [place] vs. transplanted heart: [place] heart Qualified Code(s): I25.10 - Atherosclerotic heart disease of [place] coronary artery without angina pectoris (8) Hypokalemia: (9) Hypomagnesemia: (10) Hypophosphatemia: Impression: Potassium replaced per protocol this morning. Getting 60 mEq via IV. Magnesium and phosphate now normal. - Continue magnesium to 800 mg daily - Repeat BMP 1600 and AM (11) Anxiety: Impression: Patient with a longstanding history of anxiety, insomnia. She is normally on 0.5 to 1 mg p.o. Ativan that she takes at night for insomnia or during the day for anxiety. Started having a panic attack on 06/16. Have resumed her PARTS RUNNER Ativan 0.5 mg. - Oral Ativan 0.5 mg every 6 hours as needed - Continue to monitor for respiratory depression - Nightly Ativan, may help with compliance on BiPAP I spent a total of 54 minutes in the care of this patient today. This time was spent reviewing labs, vital signs, imaging, interviewing and examining the patient, and discussing plan of care with them and their other care providers. Extensive time spent coordinating care and attempting to get her DME supplies sent to home.
[2025-06-18] MEDS: SODIUM CHLORIDE 0.9% 1,000 ML IV SCH (12:32)
[2025-06-18 17:46] LABS: BUN - BLOOD UREA NITROGEN 11.0 mg/dL (6-20); CARBON DIOXIDE - CO2 38.0 mmol/L (21-32); CREATININE 0.5 mg/dL (0.6-1.3); GFR - MDRD 123.0 (>89)
[2025-06-18] MEDS: POTASSIUM CHLORIDE 20 MEQ TABLET PO SCH (18:38)
[2025-06-18] MEDS: MIRTAZAPINE 15 MG TABLET PO SCH (20:37)
[2025-06-19 05:05] LABS: VBG PH 7.532 (7.31-7.41)
[2025-06-19 05:22] LABS: PHOSPHORUS 3.0 mg/dL (2.5-5.0)
[2025-06-19 05:34] LABS: BUN - BLOOD UREA NITROGEN 11.0 mg/dL (6-20); CARBON DIOXIDE - CO2 33.0 mmol/L (21-32); CREATININE 0.5 mg/dL (0.6-1.3); GFR - MDRD 123.0 (>89)
[2025-06-19] MEDS: IPRATROPIUM/ALBUTEROL 3 ML NEB INH PRN (07:18)
--- NOTE | 2025-06-19 12:08 | PROVIDER PROGRESS NOTE ---
Subjective Prog Note Date Prog Note Date: 06/19/25 Prog Note Time: 12:05 Subjective Subjective: No acute events overnight. Patient is still doing well this morning. She has had improvement in her CO2 yesterday and today. Down from 41-33. Saturating between 88-92% on 1 L. She has been using BiPAP more frequently. When asked what helps her use BiPAP, she thinks she was "just so tired" that she was able to tolerate it. Negative fluid balance yesterday. Not receiving diuretics. Total urine output 4 L. Patient denies any fevers or chills, denies chest pain or dyspnea. Last episode of diarrhea was last night. Respiratory therapy and her making progress on getting ventilator delivered as below. Current Medications Current Medications Current Medications: Current Medications Generic Name Dose Route Start Last Admin Trade Name Freq PRN Reason Stop Dose Admin Acetaminophen 650 mg 06/12/25 16:47 06/19/25 03:28 Acetaminophen 325 Mg Tablet PO 650 mg Q4HR PRN Administration Pain 1 to 4, or Fever Albuterol/Ipratropium 3 ml 06/12/25 19:00 06/19/25 11:02 Ipratropium/Albuterol 3 Ml Neb INH 3 ml RTQID ABRAHAM Administration Albuterol/Ipratropium 3 ml 06/16/25 07:10 06/19/25 07:18 Ipratropium/Albuterol 3 Ml Neb INH 3 ml Q4HR PRN Administration Wheezing Amlodipine Besylate 5 mg 06/18/25 12:00 06/19/25 08:16 Amlodipine 5 Mg Tablet PO 5 mg DAILY ABRAHAM Administration Atorvastatin Calcium 40 mg 06/12/25 21:00 06/18/25 20:37 Atorvastatin 40 Mg Tablet PO 40 mg QPM ABRAHAM Administration Carvedilol 12.5 mg 06/12/25 21:00 06/19/25 08:16 Carvedilol 12.5 Mg Tablet PO 12.5 mg BID ABRAHAM Administration Clopidogrel Bisulfate 75 mg 06/13/25 09:00 06/19/25 08:16 Clopidogrel 75 Mg Tablet PO 75 mg DAILY ABRAHAM Administration Enoxaparin Sodium 40 mg 06/13/25 09:00 06/19/25 08:17 Enoxaparin 40 Mg/0.4 Ml Syringe SUBQ 40 mg DAILY ABRAHAM Administration Fluticasone Propionate 1 sprays 06/13/25 09:00 06/19/25 08:17 Fluticasone Nasal [place] RADHA Not Given DAILY ABRAHAM Lisinopril 20 mg 06/17/25 09:00 06/19/25 08:16 Lisinopril 20 Mg Tablet PO 20 mg BID ABRAHAM Administration Lorazepam 0.5 mg 06/16/25 10:33 06/18/25 20:36 Lorazepam 0.5 Mg Tablet PO 0.5 mg QPM PRN Administration Anxiety Lorazepam 0.5 mg 06/16/25 14:59 06/18/25 10:39 Lorazepam 0.5 Mg Tablet PO 0.5 mg Q6H PRN Administration Anxiety Magnesium Oxide 800 mg 06/16/25 09:00 06/19/25 08:16 Magnesium Oxide 400 Mg Tablet PO 800 mg DAILYWM ABRAHAM Administration Mirtazapine 15 mg 06/18/25 21:00 06/18/25 20:37 Mirtazapine 15 Mg Tablet PO 15 mg QPM ABRAHAM Administration Multivitamins/Minerals 1 tab 06/15/25 17:00 06/19/25 08:16 Multivitamin W/Minerals Tablet PO 1 tab DAILYWM ABRAHAM Administration Ondansetron HCl 4 mg 06/12/25 16:47 Ondansetron Odt 4 Mg Tablet TL Q6HR PRN Nausea / Vomiting Ondansetron HCl 4 mg 06/12/25 16:47 06/13/25 15:19 Ondansetron 4 Mg/2 Ml Vial IVP 4 mg Q6HR PRN Administration Nausea / Vomiting Oxycodone HCl 10 mg 06/16/25 11:08 06/19/25 03:27 Oxycodone 5 Mg Tablet PO 10 mg Q4HR PRN Administration Moderate Pain (Level 4-6) Pantoprazole Sodium 40 mg 06/13/25 07:00 06/19/25 06:32 Pantoprazole 40 Mg Tablet PO 40 mg QDAC ABRAHAM Administration Saccharomyces Boulardii 500 mg 06/12/25 20:10 06/19/25 08:17 Saccharomyces Boulardii 250 Mg Capsule PO 500 mg BIDWM ABRAHAM Administration Sodium Chloride 10 ml 06/12/25 16:47 06/18/25 06:35 Sodium Chloride Flush 0.9% 10 Ml Syringe IVP 10 ml PRN PRN Administration NEEDED PER PROVIDER ORDERS Sodium Chloride 10 ml 06/12/25 17:00 06/19/25 08:17 Sodium Chloride Flush 0.9% 10 Ml Syringe IVP 10 ml 0100,0900,1700 ABRAHAM Administration Vancomycin HCl 125 mg 06/14/25 09:00 06/19/25 08:16 Vancomycin 125 Mg Capsule PO 06/24/25 08:59 125 mg QID ABRAHAM Administration Objective Vital Signs/Intake & Output Reviewed Vital Signs: Yes Vital Signs: Vital Signs x48h Temp Pulse Pulse Resp BP Pulse Ox O2 Flow Rate 06/19/25 11:02 99 21 06/19/25 11:00 37.7 C 97 24 143/87 H 96 1 06/19/25 11:00 1 06/19/25 10:00 37.7 C 98 21 113/65 95 1 06/19/25 09:00 96 21 125/66 94 1 06/19/25 09:00 1 06/19/25 08:00 37.4 C 88 19 133/72 H 96 1 06/19/25 07:21 2.5 06/19/25 07:21 90 18 06/19/25 07:00 37.1 C 95 30 H 136/75 H 97 1 06/19/25 06:30 1 06/19/25 06:00 2.5 06/19/25 06:00 37.1 C 75 16 130/73 96 06/19/25 05:05 85 1 06/19/25 05:00 37.1 C 78 13 122/69 96 Intake & Output: Intake & Output 06/16/25 06/17/25 06/18/25 06/19/25 23:59 23:59 23:59 23:59 Intake Total 2601 / 2601 990 / 990 1197 / 1197 1150 / 1150 Output Total 2200 / 2200 3307 / 3307 3551 / 3551 425 / 425 Balance 401 / 401 -2317 / -2317 -2354 / -2354 725 / 725 Weight (kg) 40.5 kg 40 kg 39.5 kg 40.5 kg Objective Comments/Other: GEN: No acute distress. Frail-appearing. Mentating normally. HEENT: NC/AT, normal appearance of external ears and nose. Hearing baseline. Cardiac: Regular rate and rhythm, no murmurs. Generally euvolemic. Pulm: Lungs CTA bilaterally, no cough. Normal effort on 1 L. Abdomen: Soft, nontender, nondistended. No rebound or guarding Extremities: Moves all 4 extremities equally. Normal tone. Neuro: Oriented x 3. Face symmetric, CN II through XII intact grossly. Sensation intact. Psych: Mood euthymic. Affect congruent. Lab Results 06/16/25 04:34 06/19/25 04:57 Other Labs: Lab Results x24hrs 06/19/25 06/18/25 Range/Units 04:57 17:17 VBG pH 7.532 H (7.31-7.41) Ionized Calcium 1.13 (1.09-1.30) mmol/L Sodium 138 139 (135-145) mmol/L Potassium 4.1 3.4 L (3.5-4.5) mmol/L Chloride 103 99 L (101-111) mmol/L Carbon Dioxide 33 H 38 H (21-32) mmol/L Anion Gap 2.0 L 2.0 L (6-13) BUN 11 11 (6-20) mg/dL Creatinine 0.5 L 0.5 L (0.6-1.3) mg/dL Estimated GFR (MDRD) 123 123 (>89) Glucose 94 120 H (74-104) mg/dL Calcium 8.1 L 8.9 (8.5-10.3) mg/dL Phosphorus 3.0 (2.5-5.0) mg/dL Magnesium 1.7 (1.7-2.3) mg/dL Assessment/Plan Problem List (1) Acute and chronic respiratory failure: Qualifiers: Respiratory failure complication: hypoxia and hypercapnia Qualified Code(s): J96.21 - Acute and chronic respiratory failure with hypoxia; J96.22 - Acute and chronic respiratory failure with hypercapnia (2) COPD exacerbation: Impression: Hypercapnia now improving. Down from 41 to 33. She was able to use BiPAP through the day yesterday some and overnight. Recall that the patient initially presented with mixed hypoxemic and hypercapnic respiratory failure. Normally on 2 L O2 at baseline. She is back to <=2 L with normal saturations. She had altered mentation with CO2 narcosis early in her hospitalization was moved to the ICU and started on BiPAP. She has never been on BiPAP before. 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 She would benefit from noninvasive ventilation at home to be used at hours of sleep as well as as needed for dyspnea or altered mentation. Patient has no leukocytosis. Imaging not suggestive of any focal consolidations. Consideration for alpha-1 antitrypsin deficiency given bibasilar scarring. CT from earlier this hospitalization reveals atelectasis with scarring in the bilateral lower lobes and mild emphysematous changes. Completed 3 days of azithromycin. Completed 5-day steroid pulse. - Continue nightly BiPAP, AM BMP - Continue DuoNebs 4 times daily - Pulmonary toileting - Needs outpatient pulmonary follow-up - Both respiratory therapy here and [facility] [place] been working with DME vendor to get BiPAP and oxygen concentrator delivered to her home. o Orders sent to [facility], patient's says that [facility] has contract with [place] - Continue nasal fluticasone - Resume [employer] budesonide and Spiriva at discharge - Medically safe for discharge once they have a delivery date for DME. Does not have to remain in house until DME is actually delivered. (3) C. difficile colitis: Impression: Last episode of diarrhea was evening of 06/18. Never had a leukocytosis during this hospitalization. Patient had diarrhea during this hospitalization. She had been treated with Antibiotics during this hospitalization and apparently was on antibiotics immediately prior to this hospitalization. Was found to be C. difficile PCR positive. Toxins were not run. - Orally hydrate - Continue oral vancomycin, 10-day treatment. EOT 06/24 - Continue probiotic (4) Metabolic alkalosis with respiratory acidosis: Impression: Resolved Likely secondary to GI losses with inappropriate respiratory compensation. (5) Acute urinary retention: Impression: Parmar was replaced on 06/19 after multiple straight caths. She will need to follow-up outpatient with urology. Parmar removed 06/17. Previous notes had indicated this was removed on 06/14. This is not the case. Unclear etiology, but likely exacerbated by patient's immobility. Prior to most recent indwelling catheter being placed she had symptomatic retention of 600 and 800 mL respectively. She reported a sensation of wanting to go, but inability. - Parmar in place, Parmar care - Will need follow-up with urology postdischarge. - Encourage mobility, up to the chair. (6) Protein calorie malnutrition: Impression: Patient meets criteria for severe protein calorie malnutrition. Her states that she does not eat much at home. He is had to take her to the hospital before for poor appetite. Patient is 39 kg. Her BMI is 15.4. She has demonstrated weight loss of 6% over the last month. She is markedly reduced in her functional capacity due to her pulmonary function. - Continue on Remeron, suspect this may have multiple benefits for the patient. - Dietitian following, appreciate their recommendations. Qualifiers: Protein-calorie malnutrition severity: severe Qualified Code(s): E43 - Unspecified severe protein-calorie malnutrition (7) CAD (coronary artery disease): Impression: Stable. Unchanged. Patient denies any anginal symptoms or equivalents. She is starting to be more hypertensive, would likely start her back on amlodipine as it may have some pulmonary vasodilatory effects. Home meds include statin, plavix, BB Has a documented history of hypertension. She is reportedly on lisinopril 20 mg and amlodipine 2.5 mg daily. She has been normotensive here. - Continue coreg 6.25mg bid (can increase if hypertensive), Amlodipine 5 mg - Continue atorvastin, plavix - Hold lisinopril, can resume with PCP after discharge if needed. Qualifiers: Coronary Disease-Associated Artery/Lesion type: unspecified vessel or lesion type [place] vs. transplanted heart: [place] heart Associated angina: w [facility] angina Qualified Code(s): I25.10 - Atherosclerotic heart disease of [place] coronary artery without angina pectoris (8) Hypokalemia: (9) Hypomagnesemia: (10) Hypophosphatemia: Impression: Electrolytes have now normalized. She is eating and drinking. Magnesium and phosphate now normal. - Continue magnesium to 800 mg daily - Monitoring CO2 with BMP as above. (11) Anxiety: Impression: Patient with a longstanding history of anxiety, insomnia. She is normally on 0.5 to 1 mg p.o. Ativan that she takes at night for insomnia or during the day for anxiety. Started having a panic attack on 06/16. Have resumed her [employer] Ativan 0.5 mg. - Oral Ativan 0.5 mg every 6 hours as needed - Continue to monitor for respiratory depression - Nightly Ativan, may help with compliance on BiPAP I spent a total of 42 minutes in the care of this patient today. This time was spent reviewing labs, vital signs, imaging, interviewing and examining the patient, and discussing plan of care with them and their other care providers.
--- NOTE | 2025-06-19 16:14 | PROVIDER PROGRESS NOTE ---
Progress Note Progress Note Progress Note: This note augments the progress note also from today. Regarding the patient's respiratory status, she was hypoxic on room air with O2 saturations of 85%. She was placed on 2 L at rest and her O2 sats improved to 92%. With exertion on 2 L/min her O2 sats were 88% and on 3 L/min via NC her O2 sats were 91%. Patient also has COPD and chronic respiratory failure BiPAP is considered and deemed ineffective. - I am ordering a noninvasive home ventilator to treat her dyspnea, CO2 retention and improve her quality of life. This will likely reduce mortality as well. - I am also ordering home O2, at 2 L/min at rest and 3 L/min with exertion. - Noninvasive home ventilator and home oxygen are to treat her COPD and chronic hypoxemic and hypercapnic respiratory failure
[2025-06-20 04:40] LABS: VBG PH 7.446 (7.31-7.41)
[2025-06-20 04:54] LABS: PHOSPHORUS 3.8 mg/dL (2.5-5.0)
[2025-06-20 05:01] LABS: BUN - BLOOD UREA NITROGEN 14.0 mg/dL (6-20); CARBON DIOXIDE - CO2 37.0 mmol/L (21-32); CREATININE 0.6 mg/dL (0.6-1.3); GFR - MDRD 99.0 (>89)
--- NOTE | 2025-06-20 13:15 | PROVIDER PROGRESS NOTE ---
Subjective Prog Note Date Prog Note Date: 06/20/25 Prog Note Time: 13:14 Subjective Subjective: Patient with no acute events overnight. This afternoon, nursing notified me that her blood pressure has been softer. Her temperatures been rising as noted on her temperature sensing Parmar. Patient denies any feelings of feverishness. She reports that she has been having some tachypnea that she attributes to anxiety. She has increased anxiety around her getting home. She reports a fairly good appetite, but nursing reports she has not been eating much. She appears more fatigued today generally. She denies any chest pain, abdominal pain, nausea or vomiting. Last episode of diarrhea was last evening. Otherwise she has been able to use her BiPAP more frequently over the last 48 hours. Bicarb on metabolic panel ranges in the mid 30s. Current Medications Current Medications Current Medications: Current Medications Generic Name Dose Route Start Last Admin Trade Name Freq PRN Reason Stop Dose Admin Acetaminophen 650 mg 06/12/25 16:47 06/19/25 03:28 Acetaminophen 325 Mg Tablet PO 650 mg Q4HR PRN Administration Pain 1 to 4, or Fever Albuterol/Ipratropium 3 ml 06/12/25 19:00 06/20/25 12:08 Ipratropium/Albuterol 3 Ml Neb INH 3 ml RTQID ABRAHAM Administration Albuterol/Ipratropium 3 ml 06/16/25 07:10 06/19/25 07:18 Ipratropium/Albuterol 3 Ml Neb INH 3 ml Q4HR PRN Administration Wheezing Amlodipine Besylate 5 mg 06/18/25 12:00 06/20/25 08:59 Amlodipine 5 Mg Tablet PO 5 mg DAILY ABRAHAM Administration Atorvastatin Calcium 40 mg 06/12/25 21:00 06/19/25 20:47 Atorvastatin 40 Mg Tablet PO 40 mg QPM ABRAHAM Administration Carvedilol 12.5 mg 06/12/25 21:00 06/20/25 08:59 Carvedilol 12.5 Mg Tablet PO 12.5 mg BID ABRAHAM Administration Clopidogrel Bisulfate 75 mg 06/13/25 09:00 06/20/25 08:58 Clopidogrel 75 Mg Tablet PO 75 mg DAILY ABRAHAM Administration Enoxaparin Sodium 40 mg 06/13/25 09:00 06/20/25 08:59 Enoxaparin 40 Mg/0.4 Ml Syringe SUBQ 40 mg DAILY ABRAHAM Administration Fluticasone Propionate 1 sprays 06/13/25 09:00 06/20/25 08:59 Fluticasone Nasal [place] RADHA 2 spr DAILY ABRAHAM Administration Lactated Ringer's 1,000 mls @ 100 mls/hr 06/20/25 14:00 Lr IV .Q10H ABRAHAM Lisinopril 20 mg 06/17/25 09:00 06/20/25 08:59 Lisinopril 20 Mg Tablet PO 20 mg BID ABRAHAM Administration Lorazepam 0.5 mg 06/16/25 10:33 06/19/25 20:48 Lorazepam 0.5 Mg Tablet PO 0.5 mg QPM PRN Administration Anxiety Lorazepam 0.5 mg 06/16/25 14:59 06/20/25 10:22 Lorazepam 0.5 Mg Tablet PO 0.5 mg Q6H PRN Administration Anxiety Magnesium Oxide 800 mg 06/16/25 09:00 06/20/25 08:58 Magnesium Oxide 400 Mg Tablet PO 800 mg DAILYWM ABRAHAM Administration Mirtazapine 15 mg 06/18/25 21:00 06/19/25 20:47 Mirtazapine 15 Mg Tablet PO 15 mg QPM ABRAHAM Administration Multivitamins/Minerals 1 tab 06/15/25 17:00 06/20/25 08:59 Multivitamin W/Minerals Tablet PO 1 tab DAILYWM ABRAHAM Administration Ondansetron HCl 4 mg 06/12/25 16:47 Ondansetron Odt 4 Mg Tablet TL Q6HR PRN Nausea / Vomiting Ondansetron HCl 4 mg 06/12/25 16:47 06/13/25 15:19 Ondansetron 4 Mg/2 Ml Vial IVP 4 mg Q6HR PRN Administration Nausea / Vomiting Oxycodone HCl 10 mg 06/16/25 11:08 06/20/25 10:22 Oxycodone 5 Mg Tablet PO 10 mg Q4HR PRN Administration Moderate Pain (Level 4-6) Pantoprazole Sodium 40 mg 06/13/25 07:00 06/20/25 06:44 Pantoprazole 40 Mg Tablet PO 40 mg QDAC ABRAHAM Administration Saccharomyces Boulardii 500 mg 06/12/25 20:10 06/20/25 08:58 Saccharomyces Boulardii 250 Mg Capsule PO 500 mg BIDWM ABRAHAM Administration Sodium Chloride 10 ml 06/12/25 16:47 06/18/25 06:35 Sodium Chloride Flush 0.9% 10 Ml Syringe IVP 10 ml PRN PRN Administration NEEDED PER PROVIDER ORDERS Sodium Chloride 10 ml 06/12/25 17:00 06/20/25 08:59 Sodium Chloride Flush 0.9% 10 Ml Syringe IVP 10 ml 0100,0900,1700 ABRAHAM Administration Vancomycin HCl 125 mg 06/14/25 09:00 06/20/25 12:03 Vancomycin 125 Mg Capsule PO 06/24/25 08:59 125 mg QID ABRAHAM Administration Objective Vital Signs/Intake & Output Reviewed Vital Signs: Yes Vital Signs: Vital Signs x48h Temp Pulse Pulse Resp BP Pulse Ox O2 Flow Rate 06/20/25 13:00 1 06/20/25 12:09 94 24 06/20/25 12:00 37.6 C 97 23 118/69 94 1 06/20/25 11:00 37.7 C 89 22 94/53 L 94 1 06/20/25 11:00 1 06/20/25 10:00 37.8 C 98 22 107/67 95 1 06/20/25 09:00 37.6 C 104 H 25 H 126/61 95 1 06/20/25 09:00 1 06/20/25 08:00 37.5 C 89 15 112/53 L 96 1 06/20/25 07:05 1 06/20/25 07:05 88 20 06/20/25 07:00 37.5 C 84 21 112/61 98 1 06/20/25 06:25 1 06/20/25 06:24 1 06/20/25 06:22 1 06/20/25 06:00 37.2 C 96 25 H 104/63 95 Intake & Output: Intake & Output 06/17/25 06/18/25 06/19/25 06/20/25 23:59 23:59 23:59 23:59 Intake Total 990 / 990 1197 / 1197 1680 / 1680 420 / 420 Output Total 3307 / 3307 3551 / 3551 750 / 750 422 / 422 Balance -2317 / -2317 -2354 / -2354 930 / 930 -2 / -2 Weight (kg) 40 kg 39.5 kg 40.5 kg 39 kg Objective Comments/Other: GEN: No acute distress. Frail-appearing. Tired appearing HEENT: NC/AT, normal appearance of external ears and nose. Hearing baseline. Cardiac: Regular rate and rhythm, no murmurs. Generally euvolemic. Pulm: Lungs CTA bilaterally, no cough. No significant wheezing. Normal effort on 1 L. Abdomen: Soft, nontender, nondistended. No rebound or guarding Extremities: Moves all 4 extremities equally. Normal tone. Neuro: Oriented x 3. Face symmetric, CN II through XII intact grossly. Sensation intact. Psych: Mood euthymic. Affect congruent. Lab Results 06/20/25 04:43 06/20/25 04:29 Other Labs: Lab Results x24hrs 06/20/25 Range/Units 04:29 VBG pH 7.446 H (7.31-7.41) Ionized Calcium 1.18 (1.09-1.30) mmol/L Sodium 140 (135-145) mmol/L Potassium 4.6 H (3.5-4.5) mmol/L Chloride 102 (101-111) mmol/L Carbon Dioxide 37 H (21-32) mmol/L Anion Gap 1.0 L (6-13) BUN 14 (6-20) mg/dL Creatinine 0.6 (0.6-1.3) mg/dL Estimated GFR (MDRD) 99 (>89) Glucose 111 H (74-104) mg/dL Calcium 8.6 (8.5-10.3) mg/dL Phosphorus 3.8 (2.5-5.0) mg/dL Magnesium 1.8 (1.7-2.3) mg/dL Assessment/Plan Problem List (1) Hypotension: Impression: Episode of hypotension today. Responsive to fluids. Had an attendant 38 C core temperature on her temperature sensing Parmar. Differential includes distributive shock, hypovolemic shock, neurogenic shock. Leaning towards distributive shock with fever. She does not have an elevated lactate. Less likely PE, is on daily Lovenox. Less likely cardiogenic. - Giving fluids, 500 mL liter bolus followed by maintenance - Checking CBC and lactate - Will get urine culture, and chest x-ray - Monitor off of antibiotics, but low threshold to start on broad spectrum if elevated wbc, ongoing hypotension, or recurrent fever - Continue treatment for C. difficile as below Qualifiers: Hypotension type: unspecified hypotension type Qualified Code(s): I95.9 - Hypotension, unspecified (2) Acute and chronic respiratory failure: Qualifiers: Respiratory failure complication: hypoxia and hypercapnia Qualified Code(s): J96.21 - Acute and chronic respiratory failure with hypoxia; J96.22 - Acute and chronic respiratory failure with hypercapnia (3) COPD exacerbation: Impression: Bicarb remains in the 30s. Able to be more compliant with BiPAP at night. Needing anxiolytics. Recall that the patient initially presented with mixed hypoxemic and hypercapnic respiratory failure. Normally on 2 L O2 at baseline. She is back to <=2 L with normal saturations. She had altered mentation with CO2 narcosis early in her hospitalization was moved to the ICU and started on BiPAP. She has never been on BiPAP before. 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 She would benefit from noninvasive ventilation at home to be used at hours of sleep as well as as needed for dyspnea or altered mentation. Patient has no leukocytosis. Imaging not suggestive of any focal consolidations. Consideration for alpha-1 antitrypsin deficiency given bibasilar scarring. CT from earlier this hospitalization reveals atelectasis with scarring in the bilateral lower lobes and mild emphysematous changes. Completed 3 days of azithromycin. Completed 5-day steroid pulse. - Continue nightly BiPAP, AM BMP - Continue DuoNebs 4 times daily - Pulmonary toileting - Needs outpatient pulmonary follow-up - Both respiratory therapy here and [facility] been working with DME vendor to get BiPAP and oxygen concentrator delivered to her home. o Orders sent to [facility], patient's says that [facility] has contract with [facility] - Continue nasal fluticasone - Resume [employer] budesonide and Spiriva at discharge - Medically safe for discharge once they have a delivery date for DME. Does not have to remain in house until DME is actually delivered. (4) C. difficile colitis: Impression: Again had an episode of diarrhea on the evening of 06/19. No diarrhea at this morning. Fluids as above. Patient had diarrhea during this hospitalization. She had been treated with Antibiotics during this hospitalization and apparently was on antibiotics immediately prior to this hospitalization. Was found to be C. difficile PCR positive. Toxins were not run. She has not mounted a leukocytosis throughout this. - Fluids as above, CBC as above - Continue oral vancomycin, 10-day treatment. EOT 11/19 - Continue probiotic (5) Metabolic alkalosis with respiratory acidosis: Impression: Resolved Likely secondary to GI losses with inappropriate respiratory compensation. (6) Acute urinary retention: Impression: Parmar was replaced on 06/19 after multiple straight caths. She will need to follow-up outpatient with urology. Parmar removed 06/17. Previous notes had indicated this was removed on 06/14. This is not the case. Unclear etiology, but likely exacerbated by patient's immobility. Prior to most recent indwelling catheter being placed she had symptomatic retention of 600 and 800 mL respectively. She reported a sensation of wanting to go, but inability. - Parmar in place, Parmar care - Will need follow-up with urology postdischarge. - Encourage mobility, up to the chair. (7) Protein calorie malnutrition: Impression: Patient meets criteria for severe protein calorie malnutrition. Her states that she does not eat much at home. He is had to take her to the hospital before for poor appetite. Patient is 39 kg. Her BMI is 15.4. She has demonstrated weight loss of 6% over the last month. She is markedly reduced in her functional capacity due to her pulmonary function. - Continue on Remeron, suspect this may have multiple benefits for the patient. - Dietitian following, appreciate their recommendations. Qualifiers: Protein-calorie malnutrition severity: severe Qualified Code(s): E43 - Unspecified severe protein-calorie malnutrition (8) CAD (coronary artery disease): Impression: Stable. Unchanged. Patient denies any anginal symptoms or equivalents. She is starting to be more hypertensive, would likely start her back on amlodipine as it may have some pulmonary vasodilatory effects. Home meds include statin, plavix, BB Has a documented history of hypertension. She is reportedly on lisinopril 20 mg and amlodipine 2.5 mg daily. She has been normotensive here. - Hold antihypertensives in the setting of hypotension - Would resume back lower dose of Coreg and amlodipine if she stabilizes. - Continue atorvastatin, plavix - Hold lisinopril, can resume with PCP after discharge if needed. Qualifiers: Associated angina: without angina Coronary Disease-Associated Artery/Lesion type: unspecified vessel or lesion type [place] vs. transplanted heart: [place] heart Qualified Code(s): I25.10 - Atherosclerotic heart disease of [place] coronary artery without angina pectoris (9) Hypokalemia: (10) Hypomagnesemia: (11) Hypophosphatemia: Impression: Mildly hyperkalemic this morning after multiple repletion's over the preceding days. Magnesium and phosphate now normal. - Continue magnesium to 800 mg daily - Normal renal function, will allow her to reequilibrate - Repeat BMP a.m. (12) Anxiety: Impression: Patient with a longstanding history of anxiety, insomnia. She is normally on 0.5 to 1 mg p.o. Ativan that she takes at night for insomnia or during the day for anxiety. Started having a panic attack on 06/16. Have resumed her [employer] Ativan 0.5 mg. - Oral Ativan 0.5 mg every 6 hours as needed - Continue to monitor for respiratory depression - Nightly Ativan, may help with compliance on BiPAP I spent a total of 47 minutes in the care of this patient today. This time was spent reviewing labs, vital signs, imaging, interviewing and examining the patient, and discussing plan of care with them and their other care providers.
[2025-06-20 13:24] LABS: HCT - HEMATOCRIT 36.4 % (37.0-47.0); HGB - HEMOGLOBIN 11.1 g/dL (12.0-16.0); MEAN PLATELET VOLUME 10.1 fL (7.9-10.8); NRBC ABSOLUTE COUNT (AUTO) 0.00 x10^3/uL; NUCLEATED RED BLOOD CELLS AUTO 0.0 /100WBC; PLT - PLATELET COUNT 321 10^3/uL (130-450); RED CELL DISTRIBUTION WIDTH 14.0 % (12.0-15.0)
[2025-06-20] MEDS ORDERED: SODIUM CHLORIDE 0.9% 500 ML IV ONE (13:24)
[2025-06-20] MEDS: LACTATED RINGERS 1,000 ML IV SCH (13:37)
[2025-06-20] MEDS: LACTATED RINGERS 500 ML IV ONE (13:37)
--- NOTE | 2025-06-20 14:26 | XRAY Report ---
PROCEDURE: XR Chest 1V INDICATIONS: Fever, hypotension, chronic hypoxemia TECHNIQUE: One view of the chest was acquired. COMPARISON: 06/13/2025 FINDINGS: Surgical changes and devices: None. Lungs and pleura: Hyperexpanded lung volumes. No concerning consolidation. Mild interstitial prominence. No pleural effusion. No pneumothorax. Right midlung scarring, unchanged Mediastinum: Mediastinal contours appear normal. Heart size is normal. Bones and chest wall: No suspicious bony lesions. Overlying soft tissues appear unremarkable. IMPRESSION: No acute cardiopulmonary process. Reviewed by: Nasir Leon MD on 06/20/2025 1:23 PM [facility] Approved by: Nasir Leon MD on 06/20/2025 1:23 PM [facility] Station ID: [id number]
[2025-06-20 15:22] LABS: OCCULT BLOOD,URINE MODERATE (NEGATIVE)
[2025-06-20 15:23] LABS: GLUCOSE, URINE (UA) NEGATIVE (NEGATIVE); KETONES,URINE (UA) NEGATIVE (NEGATIVE)
[2025-06-20 15:33] LABS: SQUAMOUS EPITHELIAL CELL,UR FEW Squamous (<= Few)
[2025-06-21 04:29] LABS: HCT - HEMATOCRIT 33.1 % (37.0-47.0); HGB - HEMOGLOBIN 10.7 g/dL (12.0-16.0); MEAN PLATELET VOLUME 9.3 fL (7.9-10.8); NRBC ABSOLUTE COUNT (AUTO) 0.00 x10^3/uL; NUCLEATED RED BLOOD CELLS AUTO 0.0 /100WBC; PLT - PLATELET COUNT 277 10^3/uL (130-450); RED CELL DISTRIBUTION WIDTH 13.5 % (12.0-15.0)
[2025-06-21 04:31] LABS: VBG PH 7.400 (7.31-7.41)
[2025-06-21 04:48] LABS: PHOSPHORUS 3.3 mg/dL (2.5-5.0)
[2025-06-21 04:53] LABS: BUN - BLOOD UREA NITROGEN 13.0 mg/dL (6-20); CARBON DIOXIDE - CO2 37.0 mmol/L (21-32); CREATININE 0.5 mg/dL (0.6-1.3); GFR - MDRD 123.0 (>89)
[2025-06-21] MEDS: MAGNESIUM SULFATE 2 GRAM 2 GM/50 ML BAG IV SCH (06:56)
[2025-06-21] MEDS: POTASSIUM CHLORIDE 20 MEQ TABLET PO ONE (09:10)
--- NOTE | 2025-06-21 09:44 | PROVIDER PROGRESS NOTE ---
Subjective Prog Note Date Prog Note Date: 06/21/25 Prog Note Time: 09:25 Subjective Subjective: Patient with hypotensive episode yesterday. Infectious workup unremarkable. Responsive to fluids. Most likely just hypovolemic. She is eating better this morning. She looks like she is feeling better. She is still on fluids as of this morning, will finish out this bag. She denies any fevers or chills. Denies any pains in her chest, abdomen, or with urination. Denies any cough, wheezing or dyspnea. Saturating in low 90s on 1 L. Labs from this morning reveal hemoglobin 10.7. Bicarb stable at 37. pH 7.4. Current Medications Current Medications Current Medications: Current Medications Generic Name Dose Route Start Last Admin Trade Name Freq PRN Reason Stop Dose Admin Acetaminophen 650 mg 06/12/25 16:47 06/20/25 13:36 Acetaminophen 325 Mg Tablet PO 650 mg Q4HR PRN Administration Pain 1 to 4, or Fever Albuterol/Ipratropium 3 ml 06/12/25 19:00 06/21/25 07:20 Ipratropium/Albuterol 3 Ml Neb INH 3 ml RTQID ABRAHAM Administration Albuterol/Ipratropium 3 ml 06/16/25 07:10 06/21/25 02:59 Ipratropium/Albuterol 3 Ml Neb INH 3 ml Q4HR PRN Administration Wheezing Atorvastatin Calcium 40 mg 06/12/25 21:00 06/20/25 20:43 Atorvastatin 40 Mg Tablet PO 40 mg QPM ABRAHAM Administration Carvedilol 6.25 mg 06/20/25 21:00 06/21/25 09:11 Carvedilol 3.125 Mg Tablet PO 6.25 mg BID ABRAHAM Administration Clopidogrel Bisulfate 75 mg 06/13/25 09:00 06/21/25 09:10 Clopidogrel 75 Mg Tablet PO 75 mg DAILY ABRAHAM Administration Enoxaparin Sodium 40 mg 06/13/25 09:00 06/21/25 09:11 Enoxaparin 40 Mg/0.4 Ml Syringe SUBQ 40 mg DAILY ABRAHAM Administration Fluticasone Propionate 1 sprays 06/13/25 09:00 06/21/25 09:13 Fluticasone Nasal [place] RADHA Not Given DAILY ABRAHAM Lactated Ringer's 1,000 mls @ 100 mls/hr 06/20/25 14:00 06/21/25 05:00 Lr IV 06/21/25 09:59 100 mls/hr .Q10H ABRAHAM Administration Lorazepam 0.5 mg 06/16/25 10:33 06/21/25 03:11 Lorazepam 0.5 Mg Tablet PO 0.5 mg QPM PRN Administration Anxiety Lorazepam 0.5 mg 06/16/25 14:59 06/20/25 10:22 Lorazepam 0.5 Mg Tablet PO 0.5 mg Q6H PRN Administration Anxiety Magnesium Oxide 800 mg 06/16/25 09:00 06/21/25 09:11 Magnesium Oxide 400 Mg Tablet PO 800 mg DAILYWM ABRAHAM Administration Mirtazapine 15 mg 06/18/25 21:00 06/20/25 20:44 Mirtazapine 15 Mg Tablet PO 15 mg QPM ABRAHAM Administration Multivitamins/Minerals 1 tab 06/15/25 17:00 06/21/25 09:11 Multivitamin W/Minerals Tablet PO 1 tab DAILYWM ABRAHAM Administration Ondansetron HCl 4 mg 06/12/25 16:47 Ondansetron Odt 4 Mg Tablet TL Q6HR PRN Nausea / Vomiting Ondansetron HCl 4 mg 06/12/25 16:47 06/13/25 15:19 Ondansetron 4 Mg/2 Ml Vial IVP 4 mg Q6HR PRN Administration Nausea / Vomiting Oxycodone HCl 10 mg 06/16/25 11:08 06/21/25 03:10 Oxycodone 5 Mg Tablet PO 10 mg Q4HR PRN Administration Moderate Pain (Level 4-6) Pantoprazole Sodium 40 mg 06/13/25 07:00 06/21/25 06:56 Pantoprazole 40 Mg Tablet PO 40 mg QDAC ABRAHAM Administration Saccharomyces Boulardii 500 mg 06/12/25 20:10 06/21/25 09:10 Saccharomyces Boulardii 250 Mg Capsule PO 500 mg BIDWM ABRAHAM Administration Sodium Chloride 10 ml 06/12/25 16:47 06/18/25 06:35 Sodium Chloride Flush 0.9% 10 Ml Syringe IVP 10 ml PRN PRN Administration NEEDED PER PROVIDER ORDERS Sodium Chloride 10 ml 06/12/25 17:00 06/21/25 09:11 Sodium Chloride Flush 0.9% 10 Ml Syringe IVP 10 ml 0100,0900,1700 ABRAHAM Administration Vancomycin HCl 125 mg 06/14/25 09:00 06/21/25 09:11 Vancomycin 125 Mg Capsule PO 06/24/25 08:59 125 mg QID ABRAHAM Administration Objective Vital Signs/Intake & Output Reviewed Vital Signs: Yes Vital Signs: Vital Signs x48h Temp Pulse Pulse Resp BP Pulse Ox O2 Flow Rate 06/21/25 07:20 88 20 1 06/21/25 07:20 1 06/21/25 07:03 1 06/21/25 07:00 37.1 C 85 19 134/81 H 93 1 06/21/25 07:00 1 06/21/25 06:00 37.3 C 79 16 104/62 93 06/21/25 05:25 1 06/21/25 05:05 86 06/21/25 05:00 37.3 C 86 21 113/66 93 06/21/25 04:00 37.2 C 84 20 107/60 93 06/21/25 03:19 91 06/21/25 03:04 1 06/21/25 03:00 37.0 C 102 H 23 134/74 H 93 06/21/25 02:59 97 20 1 06/21/25 02:00 36.9 C 91 16 143/75 H 94 1 Intake & Output: Intake & Output 06/18/25 06/19/25 06/20/25 06/21/25 23:59 23:59 23:59 23:59 Intake Total 1197 / 1197 1680 / 1680 1742 / 1742 1057 / 1057 Output Total 3551 / 3551 750 / 750 912 / 912 398 / 398 Balance -2354 / -2354 930 / 930 830 / 830 659 / 659 Weight (kg) 39.5 kg 40.5 kg 39 kg 39.5 kg Objective Comments/Other: GEN: No acute distress. Frail-appearing. Sitting up in bed eating breakfast. HEENT: NC/AT, normal appearance of external ears and nose. Hearing baseline. Cardiac: Regular rate and rhythm, no murmurs. Euvolemic. Briskly palpable peripheral pulses. Pulm: Lungs CTA bilaterally, no cough. No significant wheezing. No rhonchi or rales appreciated. Normal effort on 1 L. Abdomen: Soft, nontender, nondistended. No rebound or guarding Extremities: Moves all 4 extremities equally. Normal tone. Neuro: Oriented x 3. Face symmetric, CN II through XII intact grossly. Sensation intact. No focal neurologic deficits. Psych: Mood euthymic. Affect congruent. Lab Results 06/21/25 04:23 06/21/25 04:23 Other Labs: Lab Results x24hrs 06/21/25 06/20/25 06/20/25 Range/Units 04:23 15:00 13:27 WBC 6.7 (4.8-10.8) x10^3/uL RBC 3.65 L (4.20-5.40) 10^6/uL Hgb 10.7 L (12.0-16.0) g/dL Hct 33.1 L (37.0-47.0) % MCV 90.7 (81.0-99.0) fL MCH 29.3 (27.0-31.0) pg MCHC 32.3 (32.0-36.0) g/dL RDW 13.5 (12.0-15.0) % Plt Count 277 (130-450) 10^3/uL MPV 9.3 (7.9-10.8) fL Neut # (Auto) 4.0 (1.5-6.6) 10^3/uL Lymph # (Auto) 1.3 L (1.5-3.5) 10^3/uL [place] # (Auto) 0.9 (0.0-1.0) 10^3/uL Eos # (Auto) 0.4 (0.0-0.7) 10^3/uL Baso # (Auto) 0.0 (0.0-0.1) 10^3/uL Absolute Nucleated RBC 0.00 x10^3/uL Nucleated RBC % 0.0 /100WBC VBG pH 7.400 (7.31-7.41) Ionized Calcium 1.20 (1.09-1.30) mmol/L Sodium 140 (135-145) mmol/L Potassium 3.8 (3.5-4.5) mmol/L Chloride 103 (101-111) mmol/L Carbon Dioxide 37 H (21-32) mmol/L Anion Gap 0.0 L (6-13) BUN 13 (6-20) mg/dL Creatinine 0.5 L (0.6-1.3) mg/dL Estimated GFR (MDRD) 123 (>89) Glucose 116 H (74-104) mg/dL Lactic Acid 0.6 (0.5-2.2) mmol/L Calcium 8.5 (8.5-10.3) mg/dL Phosphorus 3.3 (2.5-5.0) mg/dL Magnesium 1.8 (1.7-2.3) mg/dL Urine Color YELLOW Urine Clarity HAZY (CLEAR) Urine pH 6.0 (5.0-7.5) PH Ur Specific [place] 1.030 (1.002-1.030) Urine Protein 30 H (NEGATIVE) mg/dL Urine Glucose (UA) NEGATIVE (NEGATIVE) mg/dL Urine Ketones NEGATIVE (NEGATIVE) mg/dL Urine Occult Blood MODERATE (NEGATIVE) Urine Nitrite NEGATIVE (NEGATIVE) Urine Bilirubin NEGATIVE (NEGATIVE) Urine Urobilinogen 0.2 (NORMAL) (NORMAL) E.U./dL Ur Leukocyte Esterase NEGATIVE (NEGATIVE) Urine RBC 11-25 H (0-5) /HPF Urine WBC 0-3 (0-5) /HPF Ur Squamous Epith Cells FEW Squamous (<= Few) Urine Bacteria Few (None Seen) /HPF Urine Culture Comments NOT INDICATED 06/20/25 Range/Units 04:43 WBC 8.1 (4.8-10.8) x10^3/uL RBC 3.90 L (4.20-5.40) 10^6/uL Hgb 11.1 L (12.0-16.0) g/dL Hct 36.4 L (37.0-47.0) % MCV 93.3 (81.0-99.0) fL MCH 28.5 (27.0-31.0) pg MCHC 30.5 L (32.0-36.0) g/dL RDW 14.0 (12.0-15.0) % Plt Count 321 (130-450) 10^3/uL MPV 10.1 (7.9-10.8) fL Neut # (Auto) 5.3 (1.5-6.6) 10^3/uL Lymph # (Auto) 1.6 (1.5-3.5) 10^3/uL [place] # (Auto) 0.8 (0.0-1.0) 10^3/uL Eos # (Auto) 0.4 (0.0-0.7) 10^3/uL Baso # (Auto) 0.0 (0.0-0.1) 10^3/uL Absolute Nucleated RBC 0.00 x10^3/uL Nucleated RBC % 0.0 /100WBC VBG pH (7.31-7.41) Ionized Calcium (1.09-1.30) mmol/L Sodium (135-145) mmol/L Potassium (3.5-4.5) mmol/L Chloride (101-111) mmol/L Carbon Dioxide (21-32) mmol/L Anion Gap (6-13) BUN (6-20) mg/dL Creatinine (0.6-1.3) mg/dL Estimated GFR (MDRD) (>89) Glucose (74-104) mg/dL Lactic Acid (0.5-2.2) mmol/L Calcium (8.5-10.3) mg/dL Phosphorus (2.5-5.0) mg/dL Magnesium (1.7-2.3) mg/dL Urine Color Urine Clarity (CLEAR) Urine pH (5.0-7.5) PH Ur Specific [place] (1.002-1.030) Urine Protein (NEGATIVE) mg/dL Urine Glucose (UA) (NEGATIVE) mg/dL Urine Ketones (NEGATIVE) mg/dL Urine Occult Blood (NEGATIVE) Urine Nitrite (NEGATIVE) Urine Bilirubin (NEGATIVE) Urine Urobilinogen (NORMAL) E.U./dL Ur Leukocyte Esterase (NEGATIVE) Urine RBC (0-5) /HPF Urine WBC (0-5) /HPF Ur Squamous Epith Cells (<= Few) Urine Bacteria (None Seen) /HPF Urine Culture Comments Assessment/Plan Problem List (1) Metabolic alkalosis with respiratory acidosis: (2) Hypotension: Impression: Patient had an episode of hypotension on 06/20. Maps in the high 50s. Responsive to fluids. Negative infectious workup. She has not been eating or drinking much. She is frail at baseline. Personally viewed chest x-ray. Consistent with COPD, no focal consolidations. Reviewed urine, no clear evidence of infection. Specifically no leukocytes, no nitrites. Patient has no dysuria. Parmar is in place (see below). Overall is most suspicious for hypovolemic shock. Got a 500 mg LR bolus followed by continuous infusion overnight. Intriguingly she also had a metabolic alkalosis for several days which normalized, likely this was a contraction alkalosis. - Will finish out second bag of LR this afternoon and then stop - Continue encourage oral hydration - Monitor off of antibiotics, but low threshold to start on broad spectrum if elevated wbc, ongoing hypotension, or recurrent fever - Continue treatment for C. difficile as below Qualifiers: Hypotension type: hypotension due to hypovolemia Qualified Code(s): E 86.1 - Hypovolemia (3) Acute and chronic respiratory failure: Qualifiers: Respiratory failure complication: hypoxia and hypercapnia Qualified Code(s): J96.21 - Acute and chronic respiratory failure with hypoxia; J96.22 - Acute and chronic respiratory failure with hypercapnia (4) COPD exacerbation: Impression: Stable. Bicarb in the 30s. She is mentating appropriately. No updates on home ventilator situation yet. She is intermittently able to use nightly BiPAP, mediated by anxiety. Recall that the patient initially presented with mixed hypoxemic and hypercapnic respiratory failure. Normally on 2 L O2 at baseline. She is back to <=2 L with normal saturations. She had altered mentation with CO2 narcosis early in her hospitalization was moved to the ICU and started on BiPAP. She has never been on BiPAP before. 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 She would benefit from noninvasive ventilation at home to be used at hours of sleep as well as as needed for dyspnea or altered mentation. BiPAP as been ineffective during this hospitalization at fully managing her symptoms Patient has no leukocytosis. Imaging not suggestive of any focal consolidations. Consideration for alpha-1 antitrypsin deficiency given bibasilar scarring. CT from earlier this hospitalization reveals atelectasis with scarring in the bilateral lower lobes and mild emphysematous changes. Completed 3 days of azithromycin. Completed 5-day steroid pulse. - Continue nightly BiPAP, AM BMP - Continue DuoNebs 4 times daily - Pulmonary toileting - Needs outpatient pulmonary follow-up - RT and patient's have been working with DME vendor to get BiPAP and oxygen concentrator delivered to her home. o Orders have now been sent to [employer], [employer], and [facility] [facility]. Refused by [facility] [facility] o O2 trial charted on 06/19 - Continue nasal fluticasone - Resume ICS today - Resume [employer] at discharge - Medically safe for discharge once they have a delivery date for DME. Does not have to remain in house until DME is actually delivered. (5) C. difficile colitis: Impression: Diarrhea has been slowing down. She has had 1-2 episodes per day reportedly. Patient had diarrhea during this hospitalization. She had been treated with Antibiotics during this hospitalization and apparently was on antibiotics immediately prior to this hospitalization. Was found to be C. difficile PCR positive. Toxins were not run. She has not mounted a leukocytosis throughout this. - Fluids as above - Continue oral vancomycin, 10-day treatment. EOT 06/24 - Continue probiotic (6) Acute urinary retention: Impression: Parmar was replaced on 06/19 after multiple straight caths. She will need to follow-up outpatient with urology. No evidence of UTI 06/20. Parmar was placed on admission. Removed in 06/17, but then replaced on 06/19 with ongoing retention. Prior to most recent indwelling catheter being placed she had symptomatic retention of 600 and 800 mL respectively. She reported a sensation of wanting to go, but inability. Unclear etiology, but likely exacerbated by patient's immobility. - Parmar in place, Parmar care - Trial flomax, but limited data to support - Will need follow-up with urology postdischarge. - Encourage mobility, up to the chair. (7) Protein calorie malnutrition: Impression: Patient meets criteria for severe protein calorie malnutrition. Her states that she does not eat much at home. He is had to take her to the hospital before for poor appetite. Patient is 39 kg. Her BMI is 15.4. She has demonstrated weight loss of 6% over the last month. She is markedly reduced in her functional capacity due to her pulmonary function. - Continue on Remeron 15 mg nightly, suspect this may have multiple benefits for the patient. - Dietitian following, appreciate their recommendations. Qualifiers: Protein-calorie malnutrition severity: severe Qualified Code(s): E43 - Unspecified severe protein-calorie malnutrition (8) CAD (coronary artery disease): Impression: Stable. Unchanged. Patient denies any anginal symptoms or equivalents. Home meds include statin, plavix, BB Has a documented history of hypertension. She is reportedly on lisinopril 20 mg and amlodipine 2.5 mg daily. She has been normotensive here, And was starting to get more hypertensive with home medications held. These were being titrated up when she had her hypovolemic hypotension episode as above. - Resume back Coreg at 6.25 mg for cardiac protection - If remaining hypertensive tomorrow, can start amlodipine 5 mg - Continue atorvastatin, plavix - Hold lisinopril, can resume with PCP after discharge if needed. Qualifiers: Coronary Disease-Associated Artery/Lesion type: unspecified vessel or lesion type [place] vs. transplanted heart: [place] heart Associated angina: [facility] angina Qualified Code(s): I25.10 - Atherosclerotic heart disease of [place] coronary artery without angina pectoris (9) Hypokalemia: (10) Hypomagnesemia: (11) Hypophosphatemia: Impression: Electrolytes have normalized as of the morning of 06/21. - Continue magnesium to 800 mg daily - Repeat BMP, Mag, Phos a.m. (12) Anxiety: Impression: Patient with a longstanding history of anxiety, insomnia. She is normally on 0.5 to 1 mg p.o. Ativan that she takes at night for insomnia or during the day for anxiety. Started having a panic attack on 06/16. Have resumed her [employer] Ativan 0.5 mg. - Oral Ativan 0.5 mg every 6 hours as needed - Continue to monitor for respiratory depression - Nightly Ativan, may help with compliance on BiPAP I spent a total of 39 minutes in the care of this patient today. This time was spent reviewing labs, vital signs, imaging, interviewing and examining the patient, and discussing plan of care with them and their other care providers.
[2025-06-21] MEDS: BUDESONIDE 0.5 MG/2 ML NEB INH SCH (19:27)
[2025-06-21] MEDS: TAMSULOSIN 0.4 MG CAPSULE PO SCH (20:59)
[2025-06-22 04:45] LABS: VBG PH 7.412 (7.31-7.41)
[2025-06-22 04:46] LABS: HCT - HEMATOCRIT 31.0 % (37.0-47.0); HGB - HEMOGLOBIN 9.4 g/dL (12.0-16.0); MEAN PLATELET VOLUME 9.5 fL (7.9-10.8); NRBC ABSOLUTE COUNT (AUTO) 0.00 x10^3/uL; NUCLEATED RED BLOOD CELLS AUTO 0.0 /100WBC; PLT - PLATELET COUNT 264 10^3/uL (130-450); RED CELL DISTRIBUTION WIDTH 13.5 % (12.0-15.0)
[2025-06-22 05:04] LABS: PHOSPHORUS 3.6 mg/dL (2.5-5.0)
[2025-06-22 05:08] LABS: BUN - BLOOD UREA NITROGEN 9.0 mg/dL (6-20); CARBON DIOXIDE - CO2 40.0 mmol/L (21-32); CREATININE 0.5 mg/dL (0.6-1.3); GFR - MDRD 123.0 (>89)
--- NOTE | 2025-06-22 10:27 | PROVIDER PROGRESS NOTE ---
Subjective Subjective Subjective: Patient states that she is feeling better overall. She still has some episodes where she feels short of breath, but it has improved since she has been here. She states that she has a very infrequent cough. She had one episode of diarrhea yesterday, but it is slowing down. She denies any fevers or chills. She was frustrated at how long it is taking to set up her respiratory device, and she is looking forward to being home. Current Medications Current Medications Current Medications: Current Medications Generic Name Dose Route Start Last Admin Trade Name Freq PRN Reason Stop Dose Admin Acetaminophen 650 mg 06/12/25 16:47 06/20/25 13:36 Acetaminophen 325 Mg Tablet PO 650 mg Q4HR PRN Administration Pain 1 to 4, or Fever Albuterol/Ipratropium 3 ml 06/12/25 19:00 06/22/25 09:53 Ipratropium/Albuterol 3 Ml Neb INH 3 ml RTQID ABRAHAM Administration Albuterol/Ipratropium 3 ml 06/16/25 07:10 06/21/25 02:59 Ipratropium/Albuterol 3 Ml Neb INH 3 ml Q4HR PRN Administration Wheezing Amlodipine Besylate 5 mg 06/22/25 09:00 06/22/25 08:36 Amlodipine 5 Mg Tablet PO 5 mg DAILY ABRAHAM Administration Atorvastatin Calcium 40 mg 06/12/25 21:00 06/21/25 20:59 Atorvastatin 40 Mg Tablet PO 40 mg QPM ABRAHAM Administration Budesonide 0.25 mg 06/21/25 19:00 06/22/25 05:38 Budesonide 0.5 Mg/2 Ml Neb INH 0.25 mg RTBID ABRAHAM Administration Carvedilol 6.25 mg 06/20/25 21:00 06/22/25 08:37 Carvedilol 3.125 Mg Tablet PO 6.25 mg BID ABRAHAM Administration Clopidogrel Bisulfate 75 mg 06/13/25 09:00 06/22/25 08:36 Clopidogrel 75 Mg Tablet PO 75 mg DAILY ABRAHAM Administration Enoxaparin Sodium 40 mg 06/13/25 09:00 06/22/25 08:37 Enoxaparin 40 Mg/0.4 Ml Syringe SUBQ 40 mg DAILY ABRAHAM Administration Fluticasone Propionate 1 sprays 06/13/25 09:00 06/22/25 08:38 Fluticasone Nasal [place] RADHA Not Given DAILY ABRAHAM Lorazepam 0.5 mg 06/16/25 10:33 06/21/25 21:00 Lorazepam 0.5 Mg Tablet PO 0.5 mg QPM PRN Administration Anxiety Lorazepam 0.5 mg 06/16/25 14:59 06/21/25 11:13 Lorazepam 0.5 Mg Tablet PO 0.5 mg Q6H PRN Administration Anxiety Magnesium Oxide 800 mg 06/16/25 09:00 06/22/25 08:36 Magnesium Oxide 400 Mg Tablet PO 800 mg DAILYWM ABRAHAM Administration Mirtazapine 15 mg 06/18/25 21:00 06/21/25 20:59 Mirtazapine 15 Mg Tablet PO 15 mg QPM ABRAHAM Administration Multivitamins/Minerals 1 tab 06/15/25 17:00 06/22/25 08:36 Multivitamin W/Minerals Tablet PO 1 tab DAILYWM ABRAHAM Administration Ondansetron HCl 4 mg 06/12/25 16:47 Ondansetron Odt 4 Mg Tablet TL Q6HR PRN Nausea / Vomiting Ondansetron HCl 4 mg 06/12/25 16:47 06/13/25 15:19 Ondansetron 4 Mg/2 Ml Vial IVP 4 mg Q6HR PRN Administration Nausea / Vomiting Oxycodone HCl 10 mg 06/16/25 11:08 06/21/25 23:59 Oxycodone 5 Mg Tablet PO 10 mg Q4HR PRN Administration Moderate Pain (Level 4-6) Pantoprazole Sodium 40 mg 06/13/25 07:00 06/22/25 06:48 Pantoprazole 40 Mg Tablet PO 40 mg QDAC ABRAHAM Administration Saccharomyces Boulardii 500 mg 06/12/25 20:10 06/22/25 08:36 Saccharomyces Boulardii 250 Mg Capsule PO 500 mg BIDWM ABRAHAM Administration Sodium Chloride 10 ml 06/12/25 16:47 06/21/25 21:00 Sodium Chloride Flush 0.9% 10 Ml Syringe IVP 10 ml PRN PRN Administration NEEDED PER PROVIDER ORDERS Sodium Chloride 10 ml 06/12/25 17:00 06/22/25 08:37 Sodium Chloride Flush 0.9% 10 Ml Syringe IVP 10 ml 0100,0900,1700 ABRAHAM Administration Tamsulosin HCl 0.4 mg 06/21/25 21:00 06/21/25 20:59 Tamsulosin 0.4 Mg Capsule PO 0.4 mg NIGHTLY ABRAHAM Administration Vancomycin HCl 125 mg 06/14/25 09:00 06/22/25 08:37 Vancomycin 125 Mg Capsule PO 06/24/25 08:59 125 mg QID ABRAHAM Administration Objective Vital Signs/Intake & Output Reviewed Vital Signs: Yes Vital Signs: Vital Signs x48h Temp Pulse Pulse Resp BP Pulse Ox O2 Flow Rate 06/22/25 10:00 103 H 20 132/75 H 97 1 06/22/25 09:53 104 H 24 06/22/25 09:03 1 06/22/25 09:00 99.1 F 97 20 119/62 96 1 06/22/25 08:00 98.8 F 89 18 125/63 97 1 06/22/25 07:00 98.6 F 84 18 115/64 99 1 06/22/25 07:00 1 06/22/25 06:00 98.6 F 91 18 96 1 06/22/25 05:55 1 06/22/25 05:41 92 16 06/22/25 05:13 81 06/22/25 05:00 98.6 F 82 18 101/59 L 92 06/22/25 04:10 1 06/22/25 04:00 98.6 F 79 17 102/60 97 06/22/25 03:00 98.8 F 84 19 94/53 L 99 06/22/25 02:36 1 06/22/25 02:35 1 Intake & Output: Intake & Output 06/19/25 06/20/25 06/21/25 06/22/25 23:59 23:59 23:59 23:59 Intake Total 1680 / 1680 1742 / 1742 2422 / 2422 340 / 340 Output Total 750 / 750 912 / 912 2765 / 2765 255 / 255 Balance 930 / 930 830 / 830 -343 / -343 85 / 85 Weight (kg) 40.5 kg 39 kg 39.5 kg 40 kg Objective General Appearance: positive Alert, Mild distress and Other (Small, cachectic in appearance. Bilateral temporal wasting noted. Some tripoding noted, accessory muscle use noted.); negative Anxious Eyes Bilateral: positive Normal inspection, PERRL and EOMI ENT: positive ENT inspection nml, Pharynx nml and No signs of dehydration Neck: positive Nml inspection, Thyroid nml and No JVD Respiratory: positive Chest non-tender and Wheezes (Minimal wheezes noted, some bilateral, bibasilar crackles noted); negative No respiratory distress (Mild- moderate), Breath sounds nml, Rales or Rhonchi Cardiovascular: positive Regular rate & rhythm, No murmur and No gallop; negative Tachycardia or Systolic murmur Abdomen: positive Non-tender, No organomegaly and No distention; negative Guarding or Splenomegaly Back: positive Nml inspection; negative CVA tenderness (R) or CVA tenderness (L) Skin: positive Color nml, No rash, Warm and Dry Extremities: positive Non-tender, Full ROM, Nml appearance and No pedal edema Neurologic/Psychiatric: positive Oriented x3, Motor nml and Mood/affect nml Lab Results 06/22/25 04:39 06/22/25 04:39 Other Labs: Lab Results x24hrs 06/22/25 Range/Units 04:39 WBC 6.3 (4.8-10.8) x10^3/uL RBC 3.37 L (4.20-5.40) 10^6/uL Hgb 9.4 L (12.0-16.0) g/dL Hct 31.0 L (37.0-47.0) % MCV 92.0 (81.0-99.0) fL MCH 27.9 (27.0-31.0) pg MCHC 30.3 L (32.0-36.0) g/dL RDW 13.5 (12.0-15.0) % Plt Count 264 (130-450) 10^3/uL MPV 9.5 (7.9-10.8) fL Neut # (Auto) 3.9 (1.5-6.6) 10^3/uL Lymph # (Auto) 1.3 L (1.5-3.5) 10^3/uL [place] # (Auto) 0.8 (0.0-1.0) 10^3/uL Eos # (Auto) 0.3 (0.0-0.7) 10^3/uL Baso # (Auto) 0.0 (0.0-0.1) 10^3/uL Absolute Nucleated RBC 0.00 x10^3/uL Nucleated RBC % 0.0 /100WBC VBG pH 7.412 H (7.31-7.41) Ionized Calcium 1.23 (1.09-1.30) mmol/L Sodium 140 (135-145) mmol/L Potassium 4.0 (3.5-4.5) mmol/L Chloride 101 (101-111) mmol/L Carbon Dioxide 40 H* (21-32) mmol/L Anion Gap -1.0 L (6-13) BUN 9 (6-20) mg/dL Creatinine 0.5 L (0.6-1.3) mg/dL Estimated GFR (MDRD) 123 (>89) Glucose 104 (74-104) mg/dL Calcium 8.5 (8.5-10.3) mg/dL Phosphorus 3.6 (2.5-5.0) mg/dL Magnesium 1.7 (1.7-2.3) mg/dL Assessment/Plan Problem List (1) Acute and chronic respiratory failure: Qualifiers: Respiratory failure complication: hypoxia and hypercapnia Qualified Code(s): J96.21 - Acute and chronic respiratory failure with hypoxia; J96.22 - Acute and chronic respiratory failure with hypercapnia (2) COPD exacerbation: Impression: The following plan is for the above two assessments: Patient likely has end- stage COPD. At home, she wears 3 to 4 L of oxygen. Here, she has required noninvasive ventilation due to work of breathing. Initially, had some CO2 retention as well. She would benefit from noninvasive ventilation at home, at night, as well as as needed for increased work of breathing or altered mentation. Initially, patient presented with altered mentation due to CO2 retention. She remains tachypneic at times, with some tripoding and accessory muscle use. Previous chest CT from 05/29 shows atelectasis and scarring in the bilateral lower lobes with mild emphysematous changes. She is chronically on 3 to 4 L of oxygen at home. Although her oxygenation is adequate, her work of breathing has increased. Procalcitonin has been ordered to ensure there is no superimposed bacterial process going on, negative. Completed three days of azithromycin. No leukocytosis, although she has a slight leukopenia 2.7. Has remained afebrile. Completed steroid burst. Continue scheduled DuoNebs RT 4 times daily. Continue adequate pulmonary hygiene including incentive spirometer use to prevent atelectasis. Palliative care consulted to establish care, discuss overall goals of care. Patient's , as well as RT are working with DME vendor. Orders have now been sent to [facility], [facility], and [facility]. Refused by [facility]. Medically safe for discharge once they have a delivery date for DME. Does not have to remain in house until DME is actually delivered. (3) Hypotension: Qualifiers: Hypotension type: hypotension due to hypovolemia Qualified Code(s): E 86.1 - Hypovolemia (4) C. difficile colitis: Impression: Diarrhea continues to improve. Continue oral vancomycin. Continue probitioics. (5) Acute urinary retention: Impression: Parmar placed. Will likely d/c with Parmar and need close outpatinet follow up. (6) Protein calorie malnutrition: Impression: Patient meets criteria for severe protein calorie malnutrition. Her states that she does not eat much at home. He is had to take her to the hospital before for poor appetite. Patient is 39 kg. Her BMI is 15.4. She has demonstrated weight loss of 6% over the last month. She is markedly reduced in her functional capacity due to her pulmonary function. Continue on Remeron 15 mg nightly, suspect this may have multiple benefits for the patient. Dietitian following, appreciate their recommendations. Qualifiers: Protein-calorie malnutrition severity: severe Qualified Code(s): E43 - Unspecified severe protein-calorie malnutrition (7) CAD (coronary artery disease): Impression: No recent outside records have been noted. Patient does state that she has CAD and had a stent placed in the last few years. Will continue her home medications which include atorvastatin, Plavix. Blood pressure soft; will hold amlodipine, lisinopril. Coreg dose decreased to 6.25 mg twice a day. Qualifiers: Associated angina: without angina Coronary Disease-Associated Artery/Lesion type: unspecified vessel or lesion type [place] vs. transplanted heart: [place] heart Qualified Code(s): I25.10 - Atherosclerotic heart disease of [place] coronary artery without angina pectoris (8) Hypokalemia: Impression: Resolved. (9) Hypomagnesemia: Impression: Resolved. (10) Hypophosphatemia: Impression: Resolved. (11) Anxiety: Impression: Patient with a longstanding history of anxiety, insomnia. She is normally on 0.5 to 1 mg p.o. Ativan that she takes at night for insomnia or during the day for anxiety. Started having a panic attack on 06/16. Have resumed her [employer] Ativan 0.5 mg. Oral Ativan 0.5 mg every 6 hours as needed. Continue to monitor for respiratory depression. Nightly Ativan, may help with compliance on BiPAP. (12) COPD (chronic obstructive pulmonary disease): Impression: See above. Qualifiers: COPD type: emphysema Emphysema type: unspecified Qualified Code(s): J 43.9 - Emphysema, unspecified
--- NOTE | 2025-06-22 17:10 | Palliative Care ---
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 with positioning Respiratory noted breathlessness with conversation; no cough or wheezing during visit Psychiatry mental status grossly normal, oriented x3, cooperative and affect abnormality noted (anxious), (depressed), (tearful) and (flat) Skin skin color abnormal (pale) Assessment & Plan Assessment & Plan (1) Anxiety: Code(s): F41.9 - Anxiety disorder, unspecified (2) Protein calorie malnutrition: Code(s): E46 - Unspecified protein-calorie malnutrition Qualifiers: Protein-calorie malnutrition severity: severe Qualified Code(s): E43 - Unspecified severe protein-calorie malnutrition (3) C. difficile colitis: Code(s): A04.72 - Enterocolitis due to Clostridium difficile, not specified as recurrent (4) Acute exacerbation of chronic obstructive pulmonary disease: Code(s): J44.1 - Chronic obstructive pulmonary disease with (acute) exacerbation (5) Acute and chronic respiratory failure with hypoxia: Code(s): J96.21 - Acute and chronic respiratory failure with hypoxia (6) Counseling regarding advanced care planning and goals of care: Code(s): Z71.89 - Other specified counseling Plan Patient being managed by psychiatry for her anciety, reports she is always use lorazepam and is not interested in other options. Patient does perceive that this is working for her, she has been started on mirtazapine, which would be my recommendation. Both for mood elevation as well as appetite stimulant. Would continue that into the home setting. Patient with severe protein calorie malnutrition, this is of concern in the context as a prognostic indicators. Patient reports it is related to multi-factorial in the context of she is "a picky eater", early satiety, as well as dyspnea with eating. She is aware needs to improve overall intake, but also of concern if going to be able to impact this overall. Patient also recovering from C. difficile, reports stools are firming up, is on current treatment with this. Patient is resistant to further exploration of using morphine though unable to really expand on "allergy" for this. Probably would be a good tool for her given her discomfort, she has tolerated long-term oxycodone for her chronic pain syndrome. She is not opioid harsha. Initiated counseling for further understanding for goals of care, code status, continuum of care and need for support into the future with her journey with serious illness. Palliative care will reach out to outpatient PCP to get referral, would be able to follow her in home setting, to further define goals of care, follow-up on CODE STATUS, as well as provide more than 1 data point regarding prognostication. Medications: Discontinued amlodipine Discontinued Reason: Completed therapy 5 mg PO DAILY 30 tabs 0RF prednisone Discontinued Reason: Completed therapy 40 mg (2 x 20 mg) PO DAILY 5 days 10 tabs 0RF J44.1 - Chronic obstructive pulmonary disease with (acute) exacerbation, R06.02 - Shortness of breath, R79.89 - Other specified abnormal findings of blood chemistry doxycycline hyclate Discontinued Reason: Completed therapy 100 mg PO BID 5 days 10 caps 0RF R06.02 - Shortness of breath prednisone 6/day for 2 days then 4/day for 2 days then 2/day for 2 days then 1/day for 2 days. Discontinued Reason: Completed therapy 10 mg PO DIRECTED 26 tabs 0RF J44.1 - Chronic obstructive pulmonary disease with (acute) exacerbation
[2025-06-22] MEDS: BUDESONIDE 0.5 MG/2 ML NEB INH SCH (19:52)
[2025-06-23] MEDS: LACTATED RINGERS 1,000 ML IV SCH (03:08)
[2025-06-23 04:54] LABS: HCT - HEMATOCRIT 33.7 % (37.0-47.0); HGB - HEMOGLOBIN 10.6 g/dL (12.0-16.0); MEAN PLATELET VOLUME 9.5 fL (7.9-10.8); PLT - PLATELET COUNT 271.0 10^3/uL (130-450); RED CELL DISTRIBUTION WIDTH 13.2 % (12.0-15.0)
[2025-06-23 04:57] LABS: VBG PH 7.478 (7.31-7.41)
[2025-06-23 05:13] LABS: PHOSPHORUS 3.2 mg/dL (2.5-5.0)
[2025-06-23 05:42] LABS: BUN - BLOOD UREA NITROGEN 7.0 mg/dL (6-20); CARBON DIOXIDE - CO2 38.0 mmol/L (21-32); CREATININE 0.5 mg/dL (0.6-1.3); GFR - MDRD 123.0 (>89)
--- NOTE | 2025-06-23 07:37 | Discharge Summary ---
"Discharge Summary Admit Date: 06/12/25 Discharge Date: 06/23/25 Discharging Provider: Dr. Rochelle Wan Primary Care Provider: Silverio Lucero Code Status: Attempt Resuscitation Discharge Facility Name: Home Health DIAGNOSES Discharge Diagnoses with Status of Each Condition: Acute and chronic respiratory failure, COPD exacerbationpatient likely has end- stage COPD. At home, she wears 3 to 4 L of oxygen. Here, she initially required noninvasive ventilation, with BiPAP use. Initially, she did have some CO2 retention and this proved helpful for this. Over the last 24 to 48 hours, she has not required BiPAP use. She completed a steroid burst as well, as well as scheduled DuoNebs. She completed a course of azithromycin, as well as a steroid burst. Palliative care was also consulted, and they establish care with the patient, will continue to follow-up in the outpatient with his end-stage COPD. Hypotensionresolved, likely due to hypovolemia. C. difficile colitisdiarrhea continues to improve, continue oral vancomycin and probiotics. Last day of therapy is tomorrow. Acute urinary retentionFoley catheter was placed, will need close outpatient follow-up with urology. Patient has already established with urology in the outpatient. Protein calorie malnutritioncontinue Remeron 15 mg nightly. Continue to encourage p.o. intake. CADcontinue home medications, including Plavix, statin, Coreg. Hold amlodipine, lisinopril. Hypokalemia, hypomagnesemia, hypophosphatemiaresolved. Anxietycontinue Ativan as needed. HPI History of Present Illness: Patient is a 70-year-old female with a history of COPD on 3 to 4 L of oxygen at home who presented due to abdominal pain and urinary retention. She states that when she first got here, she had originally presented for abdominal pain, which was present diffusely across her lower abdomen. She states after placement of the Parmar catheter, she felt immediate relief. She describes it as a sharp pain. She had no nausea or vomiting or fevers or chills. Then, while she was in the emergency room, she became more more somnolent. She was found to have CO2 retention, and was placed on BiPAP with improvement of her mentation. In the ER, she was hypertensive with blood pressure of 190/93, heart rate was 109, she was afebrile, saturating 99% on room air. Her respiratory rate was 19. Chest x-ray showed no acute cardiopulmonary process. Lab work was reviewedwhite count was within normal limits, hemoglobin was normal. Initial VBG showed a pH of 7.394 and a CO2 of 68.2. After 30 to 50 minutes of BiPAP use, this is repeated, and her CO2 is now 49.8. Her mentation is also greatly improved. BMP showed a sodium of 129. Her magnesium was low at 1.4. She was admitted for altered mentation, CO2 retention. In terms of medical history, patient states that she may have kidney cancer, although she cannot elaborate further on this. She states that she is going for a scan in the next few weeks to determine this. She also has a long history of COPD, and requires 3 to 4 L of oxygen at home. Besides this, she has CAD with a stent in place, currently on Plavix. She also has hypertension and hyperlipidemia. Medications include Plavix, lisinopril, inhalers, amlodipine. She has allergies to sulfa antibiotics, which give her a rash. She has had multiple surgeries including a cholecystectomy. She denies any recreational drug use or alcohol use. She was a former smoker, but quit over 15 years ago. She lives with her who helps with her ADLs. CONSULTS | PROCEDURES Consultations: Respiratory therapy, physical therapy, Palliative Care Procedures: Chest x-ray no acute cardiopulmonary process. HOSPITAL COURSE Hospital Course: Patient is a 70-year-old female with a history of COPD on 3 to 4 L of oxygen who presented initially for abdominal discomfort. She was found to be retaining urine, and a Parmar catheter was placed. She then became lethargic, and altered. She was found to be retaining CO2. This improved dramatically with noninvasive ventilation, BiPAP use. She was treated initially for COPD exacerbation with a steroid burst and azithromycin. This resolved. Her chest x-ray has been normal. She continued to have some increased work of breathing during her last few days here. She was continued on BiPAP as needed. Attempts were made to set her up with an noninvasive ventilation source in the outpatient, something like a trilogy device. However, this was not accomplished. Over the last 24 to 48 hours, she did not require BiPAP use. During the course of her stay here, she had diarrhea, and tested positive for C. difficile. She will complete a course of oral vancomycin, last date of therapy is tomorrow. Additionally, palliative care was consulted to establish a relationship. She will continue to follow-up with them in the outpatient setting. Overall, patient was stabilized, and has not required noninvasive ventilation here for the last 24 to 48 hours. She will need very close follow-up with pulmonology, palliative care, as well as her primary care provider. She was advised to return if she experience worsening shortness of breath, chest pain, cough, fevers, chills, or worsening mentation. Home health care was also set up for her. She was discharged home in stable condition. ALLERGIES Allergies Allergy/AdvReac Type Severity Reaction Status Date / Time codeine Allergy Unknown Verified 06/12/25 10:04 morphine Allergy Unknown Verified 06/12/25 10:04 Sulfa (Sulfonamide Allergy Unknown Verified 06/12/25 10:04 Antibiotics) MEDICATIONS Ambulatory Orders Medication Instructions Recorded Confirmed albuterol sulfate 90 mcg/actuation 1 - 2 puff inhalati on Q4HR 12/05/18 06/12/25 aerosol inhaler lorazepam 0.5 mg tablet 0.5 - 1 mg PO QPM PRN Anxiet y 06/10/23 06/12/25 atorvastatin 20 mg tablet 40 mg (2 x 20 mg) PO QPM 30 days 09/27/23 06/12/25 #60 tabs clopidogrel 75 mg tablet (Plavix) 75 mg PO DAILY #30 t abs 09/27/23 06/12/25 pantoprazole 20 mg tablet,delayed 40 mg (2 x 20 mg) PO DAILY #30 caps 09/27/23 06/12/25 release (Protonix) ipratropium 0.5 mg-albuterol 3 mg 3 ml inhalation Q4H PRN shortness 04/28/25 06/12/25 (2.5 mg base)/3 mL nebulization of breath or wheezing soln budesonide 0.25 mg/2 mL suspension 0.25 mg inhalation BID 06/12/25 06/12/25 for nebulization fluticasone propionate 50 1 spray intranasal DAILY 02/2706/12/25 mcg/actuation nasal spray,suspension ipratropium bromide 21 mcg (0.03 2 spray intranasal TI D PRN 06/12/25 06/12/25 %) nasal spray ALLERGIC RHINITIS nitroglycerin 0.4 mg sublingual 0.4 mg sublingual Q5M PRN chest 06/12/25 06/12/25 tablet pain oxycodone 10 mg tablet 10 mg PO Q4H PRN pain 06/13/25 tiotropium bromide 2.5 2 puff inhalation DAILY 02/2706/12/25 mcg/actuation mist for inhalation (Spiriva Respimat) Saccharomyces boulardii 250 mg 500 mg (2 x 250 mg) PO BIDWM #30 06/23/25 capsule caps carvedilol 3.125 mg tablet 6.25 mg (2 x 3.125 mg) PO B ID #[id number] 06/23/25 tabs magnesium oxide 400 mg (241.3 mg 800 mg (2 x 400 mg (2 41.3 mg 06/23/25 magnesium) tablet magnesium)) PO DAILYWM #30 t abs mirtazapine 15 mg tablet 15 mg PO QPM #30 tabs vancomycin 125 mg capsule 125 mg PO QID 2 days #8 caps 06/23/25 PHYSICAL EXAM AT DISCHARGE Vital Signs: Vital Signs x48h Temp Pulse Pulse Resp BP Pulse Ox O2 Flow Rate 06/23/25 13:45 99.7 F 106 H 24 103/79 97 1 06/23/25 12:00 99.5 F 106 H 26 H 108/59 L 97 1 06/23/25 11:57 98 18 1 06/23/25 11:00 1 06/23/25 10:54 99.3 F 98 20 95/52 L 96 1 06/23/25 10:00 99.3 F 101 H 25 H 128/83 98 1 06/23/25 09:00 1 06/23/25 09:00 98.6 F 112 H 17 160/91 H 96 1 06/23/25 08:51 112 H 22 1 06/23/25 08:50 1 06/23/25 08:00 98.2 F 108 H 27 H 175/89 H 98 1 06/23/25 07:00 98.2 F 96 26 H 142/84 H 97 1 06/23/25 07:00 1 General Appearance: positive Alert, Mild distress and Other (Small, cachectic in appearance. Bilateral temporal wasting noted); negative Anxious Eyes Bilateral: positive Normal inspection, PERRL and EOMI ENT: positive ENT inspection nml, Pharynx nml and No signs of dehydration Neck: positive Nml inspection, Thyroid nml and No JVD Respiratory: positive Chest non-tender and Wheezes (Minimal wheezes noted); negative No respiratory distress (Mild), Breath sounds nml, Rales or Rhonchi Cardiovascular: positive Regular rate & rhythm, No murmur and No gallop; negative Tachycardia or Systolic murmur Abdomen: positive Non-tender, No organomegaly and No distention; negative Guarding or Splenomegaly Back: positive Nml inspection; negative CVA tenderness (R) or CVA tenderness (L) Skin: positive Color nml, No rash, Warm and Dry Extremities: positive Non-tender, Full ROM, Nml appearance and No pedal edema Neurologic/Psychiatric: positive Oriented x3, Motor nml and Mood/affect nml LABS 06/23/25 04:44 06/23/25 04:44 FOLLOW UP Follow Up: Follow up PCP. Follow up pulmonology. Follow up Palliative care. TIME SPENT Time Spent in Discharge (Minutes): 35 Discharge Plan Discharge Patient Disposition: 06 Home Health Service Condition: Stable Prescriptions: New carvedilol 3.125 mg Tablet 6.25 mg PO BID Qty: 60 0RF magnesium oxide 400 mg (241.3 mg magnesium) Tablet 800 mg PO DAILYWM Qty: 30 0RF mirtazapine 15 mg Tablet 15 mg PO QPM Qty: 30 0RF Saccharomyces boulardii 250 mg Capsule 500 mg PO BIDWM Qty: 30 0RF vancomycin 125 mg Capsule 125 mg PO QID 2 Days Qty: 8 0RF Continued albuterol sulfate 8.5 GM HFA aerosol inhaler 1 - 2 puff inhalation Q4HR lorazepam 0.5 MG tablet 0.5 - 1 mg PO QPM PRN (Reason: Anxiety) atorvastatin 20 MG tablet 40 mg PO QPM 30 Days Qty: 60 0RF clopidogrel [Plavix] 75 MG tablet 75 mg PO DAILY Qty: 30 0RF pantoprazole [Protonix] 20 MG tablet,delayed release (DR/EC) 40 mg PO DAILY Qty: 30 0RF ipratropium-albuterol 0.5 mg-3 mg(2.5 mg base)/3 mL solution for nebulization 3 ml INHALATION Q4H PRN (Reason: shortness of breath or wheezing) budesonide 0.25 mg/2 mL suspension for nebulization 0.25 mg inhalation BID fluticasone propionate 50 mcg/actuation spray,suspension 1 spray INTRANASAL DAILY ipratropium bromide 21 mcg (0.03 %) spray,non-aerosol 2 spray INTRANASAL TID PRN (Reason: ALLERGIC RHINITIS) Patient Comments: USE 2 SPRAYS IN EACH NOSTRIL 2 TO 3 TIMES DAILY. nitroglycerin 0.4 mg tablet, sublingual 0.4 mg sublingual Q5M PRN (Reason: chest pain) Spiriva Respimat 2.5 mcg/actuation mist 2 puff INHALATION DAILY oxycodone 10 mg tablet 10 mg PO Q4H PRN (Reason: pain) Rx Instructions: NOT TO EXCEED 6 PER DAY Discontinued carvedilol 12.5 MG tablet 12.5 mg PO BID 30 Days Qty: 60 0RF amlodipine 2.5 mg tablet 2.5 mg PO DAILY lisinopril 20 MG tablet 20 mg PO BID Activity Restrictions: Activity as Tolerated Diet: Regular Health Concerns: Medications and Inhalers - Take all prescribed medications exactly as directed. This may include inhalers (long-acting bronchodilators, inhaled corticosteroids), oral medications, and any new prescriptions from your hospital stay. - Review and practice correct inhaler technique. Ask your healthcare provider to demonstrate if you are unsure. Oxygen Therapy - Use supplemental oxygen as prescribed. Do not adjust the flow rate without consulting your provider. - Ensure you have enough oxygen supply at home and know how to use your equipment safely. Pulmonary Rehabilitation and Activity - Participation in a pulmonary rehabilitation program is strongly recommended. This can improve breathing, exercise tolerance, and quality of life, and reduce the risk of future hospitalizations. - If unable to attend a formal program, discuss home-based or community options with your provider. - Stay as active as possible within your limits. Even light activity is beneficial. Symptom Monitoring and Action Plan - Monitor for worsening symptoms: increased shortness of breath, cough, sputum changes, fever, chest pain, or swelling in your legs. - If symptoms worsen or you have trouble breathing, use your rescue inhaler as directed and seek medical attention if not improving. - Follow your COPD action plan if you have one. If you do not, ask your provider to help you create one. Follow-Up Care - Schedule a follow-up appointment within 1-4 weeks of discharge. Early follow- up reduces the risk of readmission and allows for medication review, inhaler technique assessment, and oxygen needs reassessment. - Additional follow-up at 3 months is recommended to reassess symptoms, lung function, and comorbidities. Lifestyle and Support - Avoid smoking and exposure to lung irritants. - Stay up to date with vaccinations (influenza, pneumococcal). - Address anxiety, depression, or other concerns with your provider. Please continue to follow up Sameera, the Palliative care provider. As we discussed, your PCP will have to provide a referral for this. When to Seek Immediate Help - Severe shortness of breath not relieved by medications - Chest pain, confusion, or bluish lips/fingertips - Signs of infection (high fever, purulent sputum) - Any sudden or severe worsening of symptoms As you know, your and our respiratory therapist have both tried our best to get you noninvasive ventilation, AKA a trilogy device or something equivalent to a BiPAP device at home. Unfortunately, we were unable to do so. While here, for the last 48 hours, you have used the BiPAP very sparingly, or not at all in the last 24 hours. I would continue to follow-up very closely with palliative care in the outpatient setting. I'm glad you got to see Sameera while you were in the hospital. As discussed, I would like you to see a structurer, or a lung doctor. Pulmonary rehab would be a great resource for you as well. You will need continued and close follow-up in the outpatient setting. We have ordered home health for you as well. We are glad you are feeling better. Thank you for allowing us to care for you. Print Language: Wolof Patient Instructions: COPD: Wheezing and Chest Tightness, COPD: Coping with Fatigue Stand Alone Forms: PCP List Follow-up Care: Silverio Lucero PA [Primary Care Provider, [facility] Consultant] Vitals documented within 30 minutes of discharge?: Yes"
[2025-06-23 12:26] VITALS: O2SAT 97
[2025-06-23 13:58] VITALS: BP 103/79; TEMP 99.7
== END 2025-06-23 13:52 | disposition home health service (06) | DRG 190 ==
LOC: ED 09:51 → ICU 09:51 → MS2 16:46 → ICU 06-13 11:51 → SUATTDRO 06-13 16:24
PROVIDERS: ADMIT Internal Medicine; ATTEND Student in an Organized Health Care Education/Training Program

== ENCOUNTER 2025-07-10 12:27 | Inpatient (IN) ==
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
[2025-07-10] MEDS ORDERED: IPRATROPIUM/ALBUTEROL 3 ML NEB INH ONE (12:50)
[2025-07-10] MEDS: IPRATROPIUM/ALBUTEROL 3 ML NEB INH STA (12:51)
[2025-07-10 13:00] LABS: HCT - HEMATOCRIT 37.3 % (37.0-47.0); HGB - HEMOGLOBIN 12.0 g/dL (12.0-16.0); MEAN PLATELET VOLUME 9.2 fL (7.9-10.8); NRBC ABSOLUTE COUNT (AUTO) 0.00 x10^3/uL; NUCLEATED RED BLOOD CELLS AUTO 0.0 /100WBC; PLT - PLATELET COUNT 321 10^3/uL (130-450); RED CELL DISTRIBUTION WIDTH 13.6 % (12.0-15.0); VBG BASE EXCESS 31.0 mmol/L (-2 - +2); VBG PCO2 69.9 mmHg (41-51); VBG PH 7.496 (7.31-7.41); VBG PO2 99.2 mmHg (25-47); VBG TOTAL CO2 56.6 mmol/L (24-29)
[2025-07-10] MEDS: methylPREDNISolone SUCCINATE 125 MG/2 ML VIAL IVP STA (13:02)
--- OUTSIDE RECORDS SUMMARY | 2025-07-10 13:08 | EXTERNAL MEDICAL SUMMARY RPT | Continuity of Care Document ---
Author Organization [facility] Address [address] [place] [id number] Phone Problems date description facility 2025-04-28 18:10 Chronic obstructive pulmonary disease with (acute) exacerbation [facility] 2025-04-28 18:10 Shortness of breath [facility] 2025-04-28 18:10 Other specified abnormal findin gs of blood chemistry [facility] 2025-04-29 07:44 Chronic obstructive pulmonary disease with (acute) exacerbation [facility] 2025-04-29 07:44 Shortness of breath [facility] 2025-04-29 07:44 Other specified abnormal findin gs of blood chemistry [facility] 2025-04-30 12:23 Chronic obstructive pulmonary disease with (acute) exacerbation [facility] 2025-04-30 12:23 Shortness of breath 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, implants and grafts, initial encounter [employer] 2025-06-12 16:16 Metabolic encephalopathy [facility] 2025-06-12 16:46 Metabolic encephalopathy [facility] 2025-06-12 17:04 Metabolic encephalopathy [facility] 2025-06-13 09:14 Other acidosis [employer] [facility] 2025-06-13 09:14 Metabolic encephalopathy [facility] 2025-06-13 09:14 Atherosclerotic hear t disease of [place] coronary artery without angina pectoris [facility] 2025-06-13 09:14 Emphysema, unspecified [employer] 2025-06-13 09:14 Other retention of urine [facility] 2025-06-13 11:51 Other acidosis [employer] 2025-06-13 11:51 Metabolic encephalopathy [facility] 2025-06-13 11:51 Atherosclerotic hear t disease of [place] coronary artery without angina pectoris [employer] [facility] 2025-06-13 11:51 Emphysema, unspecified [employer] [facility] 2025-06-13 11:51 Other retention of urine [facility] 2025-06-13 17:05 Other acidosis [employer] 2025-06-13 17:05 Metabolic encephalopathy [facility] 2025-06-13 17:05 Atherosclerotic hear t disease of [place] coronary artery without angina pectoris [employer] [facility] 2025-06-13 17:05 Emphysema, unspecified [employer] [facility] 2025-06-13 17:05 Chronic obstructive pulmonary disease with (acute) exacerbation [employer] 2025-06-13 17:05 Diarrhea, unspecified [facility] 2025-06-13 17:05 Other retention of urine [facility] 2025-06-14 06:25 Other acidosis [employer] 2025-06-14 06:25 Metabolic encephalopathy [facility] 2025-06-14 06:25 Atherosclerotic hear t disease of [place] coronary artery without angina pectoris [employer] 2025-06-14 06:25 Emphysema, unspecified [employer] [facility] 2025-06-14 06:25 Chronic obstructive pulmonary disease with (acute) exacerbation [employer] 2025-06-14 06:25 Diarrhea, unspecified [facility] 2025-06-14 06:25 Other retention of urine [employer] 2025-06-15 06:06 Enterocolitis due to Clostridium difficile, not specified as recurrent [facility] 2025-06-15 06:06 Other acidosis [facility] 2025-06-15 06:06 Mixed disorder of acid-base [facility] 2025-06-15 06:06 Metabolic encephalopathy [facility] [email or web address] 2025-06-15 06:06 Atherosclerotic hear t disease of [place] coronary artery without angina pectoris [facility] 2025-06-15 06:06 Emphysema, unspecified [employer] 2025-06-15 06:06 Chronic obstructive pulmonary disease with (acute) exacerbation [facility] 2025-06-15 06:06 Diarrhea, unspecified [facility] 2025-06-15 06:06 Other retention of urine [facility] 2025-06-15 07:07 Enterocolitis due to Clostridium difficile, not specified as recurrent [facility] 2025-06-15 07:07 Other acidosis [facility] 2025-06-15 07:07 Mixed disorder of acid-base [facility] 2025-06-15 07:07 Metabolic encephalopathy [facility] 2025-06-15 07:07 Atherosclerotic hear t disease of [place] coronary artery without angina pectoris [facility] 2025-06-15 07:07 Emphysema, unspecified [facility] 2025-06-15 07:07 Chronic obstructive pulmonary disease with (acute) exacerbation [facility] 2025-06-15 07:07 Diarrhea, unspecified [facility] 2025-06-15 07:07 Other retention of urine [facility] 2025-06-15 07:45 Enterocolitis due to Clostridium difficile, not specified as recurrent [employer] 2025-06-15 07:45 Other acidosis [facility] 2025-06-15 07:45 Mixed disorder of acid-base bal [facility] 2025-06-15 07:45 Metabolic encephalopathy [facility] 2025-06-15 07:45 Atherosclerotic hear t disease of [place] coronary artery without angina pectoris [facility] 2025-06-15 07:45 Emphysema, unspecified [facility] 2025-06-15 07:45 Chronic obstructive pulmonary disease with (acute) exacerbation [facility] 2025-06-15 07:45 Diarrhea, unspecified [facility] 2025-06-15 07:45 Other retention of urine [facility] 2025-06-16 06:36 Enterocolitis due to Clostridium difficile, not specified as recurrent [facility] 2025-06-16 06:36 Other acidosis [facility] 2025-06-16 06:36 Mixed disorder of acid-base bal [facility] 2025-06-16 06:36 Metabolic encephalopathy [facility] 2025-06-16 06:36 Atherosclerotic hear t disease of [place] coronary artery without angina pectoris [facility] 2025-06-16 06:36 Emphysema, unspecified [facility] 2025-06-16 06:36 Chronic obstructive pulmonary disease with (acute) exacerbation [facility] 2025-06-16 06:36 Acute and chronic respiratory f ailure with hypoxia [facility] 2025-06-16 06:36 Acute and chronic re spiratory failure with hypercapnia [facility] 2025-06-16 06:36 Diarrhea, unspecified [facility] 2025-06-16 06:36 Other retention of urine [facility] 2025-06-16 07:03 Enterocolitis due to Clostridium difficile, not specified as recurrent [facility] 2025-06-16 07:03 Other acidosis [facility] 2025-06-16 07:03 Mixed disorder of acid-base bal [facility] 2025-06-16 07:03 Metabolic encephalopathy [facility] 2025-06-16 07:03 Atherosclerotic hear t disease of [place] coronary artery without angina pectoris [facility] 2025-06-16 07:03 Emphysema, unspecified [facility] 2025-06-16 07:03 Chronic obstructive pulmonary disease with (acute) exacerbation [facility] 2025-06-16 07:03 Acute and chronic respiratory f ailure with hypoxia [facility] 2025-06-16 07:03 Acute and chronic re spiratory failure with hypercapnia [facility] 2025-06-16 07:03 Diarrhea, unspecified [facility] 2025-06-16 07:03 Other retention of urine [facility] 2025-06-17 06:22 Enterocolitis due to Clostridium difficile, not specified as recurrent [facility] 2025-06-17 06:22 Other disorders of phosphorus m etabolism [facility] 2025-06-17 06:22 Hypomagnesemia [facility] 2025-06-17 06:22 Other acidosis [facility] 2025-06-17 06:22 Mixed disorder of acid-base bal ance [facility] 2025-06-17 06:22 Anxiety disorder, unspecified [facility] 2025-06-17 06:22 Metabolic encephalopathy [facility] 2025-06-17 06:22 Atherosclerotic hear t disease of [place] coronary artery without angina pectoris [facility] 2025-06-17 06:22 Emphysema, unspecified [facility] 2025-06-17 06:22 Chronic obstructive pulmonary disease with (acute) exacerbation [facility] 2025-06-17 06:22 Acute and chronic respiratory f ailure with hypoxia [facility] 2025-06-17 06:22 Acute and chronic re spiratory failure with hypercapnia [facility] 2025-06-17 06:22 Diarrhea, unspecified [facility] 2025-06-17 06:22 Other retention of urine [facility] 2025-06-17 13:52 Dysuria [facility] 2025-06-17 13:52 Abnormal weight loss [facility] 2025-06-17 13:52 Other symptoms and s igns concerning food and fluid intake [facility] 2025-06-18 06:54 Enterocolitis due to Clostridium difficile, not specified as recurrent [facility] 2025-06-18 06:54 Other disorders of phosphorus m etabolism [facility] 2025-06-18 06:54 Hypomagnesemia [facility] 2025-06-18 06:54 Other acidosis [facility] 2025-06-18 06:54 Mixed disorder of acid-base bal [facility] 2025-06-18 06:54 Anxiety disorder, unspecified [employer] 2025-06-18 06:54 Metabolic encephalopathy [facility] 2025-06-18 06:54 Atherosclerotic hear t disease of [place] coronary artery without angina pectoris [employer] 2025-06-18 06:54 Emphysema, unspecified [facility] 2025-06-18 06:54 Chronic obstructive pulmonary disease with (acute) exacerbation [facility] 2025-06-18 06:54 Acute and chronic respiratory f ailure with hypoxia [employer] 2025-06-18 06:54 Acute and chronic re spiratory failure with hypercapnia [employer] 2025-06-18 06:54 Diarrhea, unspecified [facility] 2025-06-18 06:54 Other retention of urine [employer] 2025-06-19 05:53 Enterocolitis due to Clostridium difficile, not specified as recurrent [employer] 2025-06-19 05:53 Unspecified severe protein-jeremy alexey malnutrition [employer] 2025-06-19 05:53 Other disorders of phosphorus m etabolism [employer] 2025-06-19 05:53 Hypomagnesemia [employer] 2025-06-19 05:53 Other acidosis [facility] 2025-06-19 05:53 Mixed disorder of acid-base [facility] [employer] 2025-06-19 05:53 Hypokalemia [facility] 2025-06-19 05:53 Anxiety disorder, unspecified [employer] 2025-06-19 05:53 Metabolic encephalopathy [facility] 2025-06-19 05:53 Atherosclerotic hear t disease of [place] coronary artery without angina pectoris [employer] 2025-06-19 05:53 Emphysema, unspecified [employer] 2025-06-19 05:53 Chronic obstructive pulmonary disease with (acute) exacerbation [employer] 2025-06-19 05:53 Acute and chronic respiratory f ailure with hypoxia [employer] 2025-06-19 05:53 Acute and chronic re spiratory failure with hypercapnia [employer] 2025-06-19 05:53 Diarrhea, unspecified [facility] 2025-06-19 05:53 Other retention of urine [facility] 2025-06-20 04:50 Enterocolitis due to Clostridium difficile, not specified as recurrent [facility] 2025-06-20 04:50 Unspecified severe protein-jeremy alexey malnutrition [facility] 2025-06-20 04:50 Other disorders of phosphorus m etabolism [facility] 2025-06-20 04:50 Hypomagnesemia [facility] 2025-06-20 04:50 Other acidosis [facility] 2025-06-20 04:50 Mixed disorder of acid-base bal [facility] 2025-06-20 04:50 Hypokalemia [facility] 2025-06-20 04:50 Anxiety disorder, unspecified [facility] 2025-06-20 04:50 Metabolic encephalopathy [facility] [email or web address] 2025-06-20 04:50 Atherosclerotic hear t disease of [place] coronary artery without angina pectoris [facility] 2025-06-20 04:50 Emphysema, unspecified [facility] 2025-06-20 04:50 Chronic obstructive pulmonary disease with (acute) exacerbation [facility] [email or web address] 2025-06-20 04:50 Acute and chronic respiratory f ailure with hypoxia [facility] 2025-06-20 04:50 Acute and chronic re spiratory failure with hypercapnia [facility] 2025-06-20 04:50 Diarrhea, unspecified [facility] 2025-06-20 04:50 Other retention of urine [facility] 2025-06-20 10:14 Enterocolitis due to Clostridium difficile, not specified as recurrent [facility] 2025-06-20 10:14 Unspecified severe protein-jeremy alexey malnutrition [facility] 2025-06-20 10:14 Other disorders of phosphorus m etabolism [facility] 2025-06-20 10:14 Hypomagnesemia [facility] 2025-06-20 10:14 Other acidosis [facility] [email or web address] 2025-06-20 10:14 Mixed disorder of acid-base bal ance [employer] 2025-06-20 10:14 Hypokalemia [facility] 2025-06-20 10:14 Anxiety disorder, unspecified [employer] 2025-06-20 10:14 Metabolic encephalopathy [facility] 2025-06-20 10:14 Atherosclerotic hear t disease of [place] coronary artery without angina pectoris [employer] 2025-06-20 10:14 Emphysema, unspecified [employer] 2025-06-20 10:14 Chronic obstructive pulmonary disease with (acute) exacerbation [employer] 2025-06-20 10:14 Acute and chronic respiratory f ailure with hypoxia [employer] 2025-06-20 10:14 Acute and chronic re spiratory failure with hypercapnia [employer] 2025-06-20 10:14 Diarrhea, unspecified [facility] 2025-06-20 10:14 Other retention of urine [employer] 2025-06-21 05:34 Enterocolitis due to Clostridium difficile, not specified as recurrent [employer] 2025-06-21 05:34 Unspecified severe protein-jeremy alexey malnutrition [employer] 2025-06-21 05:34 Other disorders of phosphorus m etabolism [employer] 2025-06-21 05:34 Hypomagnesemia [employer] 2025-06-21 05:34 Other acidosis [employer] 2025-06-21 05:34 Mixed disorder of acid-base bal [facility] [employer] 2025-06-21 05:34 Hypokalemia [employer] 2025-06-21 05:34 Anxiety disorder, unspecified [employer] 2025-06-21 05:34 Metabolic encephalopathy [employer] 2025-06-21 05:34 Atherosclerotic hear t disease of [place] coronary artery without angina pectoris [employer] 2025-06-21 05:34 Hypotension, unspecified [employer] 2025-06-21 05:34 Emphysema, unspecified [employer] 2025-06-21 05:34 Chronic obstructive pulmonary disease with (acute) exacerbation [employer] 2025-06-21 05:34 Acute and chronic respiratory f ailure with hypoxia [employer] 2025-06-21 05:34 Acute and chronic re spiratory failure with hypercapnia [facility] 2025-06-21 05:34 Diarrhea, unspecified [facility] 2025-06-21 05:34 Other retention of urine [employer] 2025-06-21 17:45 Enterocolitis due to Clostridium difficile, not specified as recurrent [facility] 2025-06-21 17:45 Unspecified severe protein-jeremy alexey malnutrition [facility] 2025-06-21 17:45 Other disorders of phosphorus m etabolism [facility] 2025-06-21 17:45 Hypomagnesemia [facility] 2025-06-21 17:45 Hypovolemia [facility] 2025-06-21 17:45 Other acidosis [facility] 2025-06-21 17:45 Mixed disorder of acid-base bal ance [facility] 2025-06-21 17:45 Hypokalemia [facility] 2025-06-21 17:45 Anxiety disorder, [facility] 17:45 Metabolic encephalopathy [employer] 2025-06-21 17:45 Atherosclerotic hear t disease of [place] coronary artery without angina pectoris [employer] 2025-06-21 17:45 Hypotension, unspecified [employer] 2025-06-21 17:45 Emphysema, unspecified [facility] 2025-06-21 17:45 Chronic obstructive pulmonary disease with (acute) exacerbation [employer] 2025-06-21 17:45 Acute and chronic respiratory f ailure with hypoxia [employer] 2025-06-21 17:45 Acute and chronic re spiratory failure with hypercapnia [employer] 2025-06-21 17:45 Diarrhea, unspecified [facility] 2025-06-21 17:45 Other retention of urine [employer] 2025-06-21 18:04 Enterocolitis due to Clostridium difficile, not specified as recurrent [employer] 2025-06-21 18:04 Unspecified severe protein-jeremy alexey malnutrition [employer] 2025-06-21 18:04 Other disorders of phosphorus m etabolism [employer] 2025-06-21 18:04 Hypomagnesemia [employer] 2025-06-21 18:04 Hypovolemia [facility] 2025-06-21 18:04 Other acidosis [facility] 2025-06-21 18:04 Mixed disorder of acid-base [facility] 2025-06-21 18:04 Hypokalemia [facility] 2025-06-21 18:04 Anxiety disorder, unspecified [employer] 2025-06-21 18:04 Metabolic encephalopathy [employer] 2025-06-21 18:04 Atherosclerotic hear t disease of [place] coronary artery without angina pectoris [employer] 2025-06-21 18:04 Hypotension, unspecified [facility] 2025-06-21 18:04 Emphysema, unspecified [facility] 2025-06-21 18:04 Chronic obstructive pulmonary disease with (acute) exacerbation [employer] 2025-06-21 18:04 Acute and chronic respiratory f ailure with hypoxia [facility] 2025-06-21 18:04 Acute and chronic re spiratory failure with hypercapnia [employer] 2025-06-21 18:04 Diarrhea, unspecified [facility] 2025-06-21 18:04 Other retention of urine [employer] 2025-06-22 06:26 Enterocolitis due to Clostridium difficile, not specified as recurrent [facility] 2025-06-22 06:26 Unspecified severe protein-jeremy alexey malnutrition [employer] 2025-06-22 06:26 Other disorders of phosphorus m etabolism [employer] 2025-06-22 06:26 Hypomagnesemia [employer] 2025-06-22 06:26 Hypovolemia [employer] 2025-06-22 06:26 Other acidosis [facility] 2025-06-22 06:26 Mixed disorder of acid-base bal [facility] [employer] 2025-06-22 06:26 Hypokalemia [facility] 2025-06-22 06:26 Anxiety disorder, unspecified [employer] 2025-06-22 06:26 Metabolic encephalopathy [employer] 2025-06-22 06:26 Atherosclerotic hear t disease of [place] coronary artery without angina pectoris [facility] 2025-06-22 06:26 Hypotension, unspecified [employer] 2025-06-22 06:26 Emphysema, unspecified [facility] 2025-06-22 06:26 Chronic obstructive pulmonary disease with (acute) exacerbation [employer] 2025-06-22 06:26 Acute and chronic respiratory f ailure with hypoxia [employer] 2025-06-22 06:26 Acute and chronic re spiratory failure with hypercapnia [facility] 2025-06-22 06:26 Diarrhea, unspecified [facility] 2025-06-22 06:26 Other retention of urine [employer] 2025-06-23 06:17 Enterocolitis due to Clostridium difficile, not specified as recurrent [employer] 2025-06-23 06:17 Unspecified severe protein-jeremy alexey malnutrition [employer] 2025-06-23 06:17 Other disorders of phosphorus m etabolism [employer] 2025-06-23 06:17 Hypomagnesemia [employer] 2025-06-23 06:17 Hypovolemia [employer] 2025-06-23 06:17 Other acidosis [employer] 2025-06-23 06:17 Mixed disorder of acid-base bal ance [employer] 2025-06-23 06:17 Hypokalemia [employer] 2025-06-23 06:17 Anxiety disorder, unspecified [facility] 20[facility]23 06:17 Metabolic encephalopathy [facility] 2025-06-23 06:17 Atherosclerotic hear t disease of [place] coronary artery without angina pectoris [employer] 2025-06-23 06:17 Hypotension, unspecified [employer] 2025-06-23 06:17 Emphysema, unspecified [employer] 2025-06-23 06:17 Chronic obstructive pulmonary disease with (acute) exacerbation [employer] 2025-06-23 06:17 Acute and chronic respiratory f ailure with hypoxia [employer] 2025-06-23 06:17 Acute and chronic re spiratory failure with [facility]capnia [facility] 06:17 [facility], [facility] 2025-06-23 06:17 Other retention of urine [facility] 2025-06-23 06:17 Other specified counseling [employer] [facility] [email or web address] 2025-06-23 11:59 Enterocolitis due to Clostridium difficile, not specified as recurrent [facility] 2025-06-23 11:59 Unspecified severe protein-jeremy alexey malnutrition [facility] 2025-06-23 11:59 Other disorders of phosphorus m etabolism [facility] 2025-06-23 11:59 Hypomagnesemia [facility] 2025-06-23 11:59 Hypovolemia [facility] 2025-06-23 11:59 Other acidosis [facility] 2025-06-23 11:59 Mixed disorder of acid-base bal ance [facility] 2025-06-23 11:59 Hypokalemia [facility] 2025-06-23 11:59 Anxiety disorder, [facility] 11:59 Metabolic encephalopathy [facility] 2025-06-23 11:59 Atherosclerotic hear t disease of [place] coronary artery without angina pectoris [facility] 2025-06-23 11:59 Hypotension, unspecified [facility] 2025-06-23 11:59 Emphysema, unspecified [facility] 2025-06-23 11:59 Chronic obstructive pulmonary disease with (acute) exacerbation [facility] 2025-06-23 11:59 Acute and chronic respiratory f ailure with hypoxia [facility] 2025-06-23 11:59 Acute and chronic re spiratory failure with hypercapnia [facility] 2025-06-23 11:59 Diarrhea, unspecified [facility] 2025-06-23 11:59 Other retention of urine [facility] 2025-06-23 11:59 Other specified counseling [employer] 2025-06-23 12:07 Enterocolitis due to Clostridium difficile, not specified as recurrent [facility] 2025-06-23 12:07 Unspecified severe protein-jeremy alexey malnutrition [employer] 2025-06-23 12:07 Other disorders of phosphorus m etabolism [facility] 2025-06-23 12:07 Hypomagnesemia [facility] 2025-06-23 12:07 [facility]ovolemia [facility] 2025-06-23 12:07 Other acidosis [facility] 2025-06-23 12:07 Mixed disorder of acid-base bal ance [facility] 2025-06-23 12:07 Hypokalemia [facility] 2025-06-23 12:07 Anxiety disorder, [facility]23 12:07 Metabolic encephalopathy [facility] 2025-06-23 12:07 Atherosclerotic hear t disease of [place] coronary artery without angina pectoris [facility] 2025-06-23 12:07 Hypotension, unspecified [facility] 2025-06-23 12:07 Emphysema, unspecified [facility] 2025-06-23 12:07 Chronic obstructive pulmonary disease with (acute) exacerbation [facility] 2025-06-23 12:07 Acute and chronic respiratory f ailure with hypoxia [facility] 2025-06-23 12:07 Acute and chronic re spiratory failure with hypercapnia [facility] 2025-06-23 12:07 Diarrhea, unspecified [facility] [employer] 2025-06-23 12:07 Other retention of urine [facility] 2025-06-23 12:07 Other specified counseling [employer] [facility] [email or web address] 2025-06-23 12:17 Enterocolitis due to Clostridium difficile, not specified as recurrent [facility] 2025-06-23 12:17 Unspecified severe protein-jeremy alexey malnutrition [facility] 2025-06-23 12:17 Other disorders of phosphorus m etabolism [facility] 2025-06-23 12:17 Hypomagnesemia [facility] 2025-06-23 12:17 Hypovolemia [facility] 2025-06-23 12:17 Other acidosis [facility] 2025-06-23 12:17 Mixed disorder of acid-base bal [facility]25-[facility]-23 12:17 Hypokalemia [employer] 2025-06-23 12:17 Anxiety disorder, unspecified [employer] 2025-06-23 12:17 Metabolic encephalopathy [employer] 2025-06-23 12:17 Atherosclerotic hear t disease of [place] coronary artery without angina pectoris [employer] 2025-06-23 12:17 Hypotension, unspecified [employer] 2025-06-23 12:17 Emphysema, unspecified [employer] 2025-06-23 12:17 Chronic obstructive pulmonary disease with (acute) exacerbation [employer] 2025-06-23 12:17 Acute and chronic respiratory f ailure with hypoxia [employer] 2025-06-23 12:17 Acute and chronic re spiratory failure with hypercapnia [employer] 2025-06-23 12:17 Diarrhea, unspecified [employer] [facility] 2025-06-23 12:17 Other retention of urine [employer] 2025-06-23 12:17 Other specified counseling [employer] 2025-06-23 14:01 Enterocolitis due to Clostridium difficile, not specified as recurrent [employer] 2025-06-23 14:01 Unspecified severe protein-jeremy alexey malnutrition [employer] 2025-06-23 14:01 Other disorders of phosphorus m etabolism [employer] 2025-06-23 14:01 Hypomagnesemia [employer] 2025-06-23 14:01 Hypovolemia [employer] 2025-06-23 14:01 Other acidosis [employer] 2025-06-23 14:01 Mixed disorder of acid-base bal ance [employer] 2025-06-23 14:01 Hypokalemia [employer] 2025-06-23 14:01 Anxiety disorder, unspecified [employer] 2025-06-23 14:01 Metabolic encephalopathy [employer] 2025-06-23 14:01 Atherosclerotic hear t disease of [place] coronary artery without angina pectoris [employer] 2025-06-23 14:01 Hypotension, unspecified [employer] 2025-06-23 14:01 Emphysema, unspecified [employer] 2025-06-23 14:01 Chronic obstructive pulmonary disease with (acute) exacerbation [facility] 2025-06-23 14:01 Acute and chronic respiratory f ailure with hypoxia [facility] 2025-06-23 14:01 Acute and chronic re spiratory failure with hypercapnia [facility] 2025-06-23 14:01 Diarrhea, unspecified [facility] 2025-06-23 14:01 Other retention of urine [facility] 2025-06-23 14:01 Other specified counseling [employer] 2025-06-24 07:40 Enterocolitis due to Clostridium difficile, not specified as recurrent [facility] 2025-06-24 07:40 Unspecified severe protein-jeremy alexey malnutrition [facility] 2025-06-24 07:40 Other disorders of phosphorus m etabolism [facility] 2025-06-24 07:40 Hypomagnesemia [facility] 2025-06-24 07:40 Hypovolemia [facility] 2025-06-24 07:40 Other acidosis [facility] 2025-06-24 07:40 Mixed disorder of acid-base bal ance [facility] 2025-06-24 07:40 Hypokalemia [facility] 2025-06-24 07:40 Anxiety disorder, [facility]24 07:40 Metabolic encephalopathy [facility] 2025-06-24 07:40 Atherosclerotic hear t disease of [place] coronary artery without angina pectoris [facility] 2025-06-24 07:40 Hypotension, unspecified [employer] 2025-06-24 07:40 Emphysema, unspecified [facility] 2025-06-24 07:40 Chronic obstructive pulmonary disease with (acute) exacerbation [facility] 2025-06-24 07:40 Acute and chronic respiratory f ailure with hypoxia [facility] 2025-06-24 07:40 Acute and chronic re spiratory failure with hypercapnia [facility] 2025-06-24 07:40 Lower abdominal pain, unspecifi ed [facility] 2025-06-24 07:40 Diarrhea, unspecified [facility] [employer] [facility] 2025-06-24 07:40 Other retention of urine [employer] 2025-06-24 07:40 Retention of urine, unspecified [facility] 2025-06-24 07:[address] [facility] [email or web address] 2025-06-24 12:29 Enterocolitis due to Clostridium difficile, not specified as recurrent [facility] 2025-06-24 12:29 Unspecified severe protein-jeremy alexey malnutrition [facility] [email or web address] 2025-06-24 12:29 Other disorders of phosphorus m etabolism [facility] [email or web address] 2025-06-24 12:29 Hypomagnesemia [facility] 2025-06-24 12:29 [facility]mia [facility] 2025-06-24 12:29 Other acidosis [facility] [email or web address] 2025-06-24 12:29 Mixed disorder of acid-base bal ance [facility] 2025-06-24 12:29 Hypokalemia [facility] 2025-06-24 12:29 Anxiety disorder, unspecified [facility] 2025-06-24 12:29 Metabolic encephalopathy [facility] 2025-06-24 12:29 Atherosclerotic hear t disease of [place] coronary artery without angina pectoris [facility] 2025-06-24 12:29 Hypotension, unspecified [facility] 2025-06-24 12:29 Emphysema, unspecified [facility] 2025-06-24 12:29 Chronic obstructive pulmonary disease with (acute) exacerbation [facility] 2025-06-24 12:29 Acute and chronic respiratory f ailure with hypoxia [facility] 2025-06-24 12:29 Acute and chronic re spiratory failure with hypercapnia [facility] 2025-06-24 12:29 Lower abdominal pain, unspecifi ed [facility] 2025-06-24 12:29 Diarrhea, unspecified [facility] 2025-06-24 12:29 Other retention of urine [facility] 2025-06-24 12:29 Retention of urine, unspecified [facility] 2025-06-24 12:[address] [facility] [email or web address] 2025-06-30 12:27 Diarrhea, unspecified [facility] 2025-06-30 12:27 Hematuria, unspecified [facility] 2025-07-01 12:16 Unspecified abdominal pain [facility] 2025-07-01 12:16 Weakness [facility] 2025-07-06 08:00 Weakness [facility] Results/Labs test date facility value unit notes Result panel 1 SARS-CoV-2 -RESP PCR PANEL 2025-04-28 14:55 [facility] NOT DETECTED (missing) A negative test result for this test indicates that SARS-CoV-2 RNA was not present in the specimen above the limit of detection. Testing performed on the [employer] RP2.1 Panel, a multiplexed nucleic acid repiratory [...] INFLUENZA A- RESP PCR PANEL 2025-04-28 14:55 [facility] NOT DETECTED (missing) Influenza A including subtypes H1, H3, and H1-2009 not detected by the BioFire RP2.1 Panel, a multiplexed nucleic acid test intended for the simultaneous qualitative detection and differentiation of nucleic acids from multiple viral and bacterial respiratory organisms. B. PARAPERTUSSIS- RESP PCR CARLISLE 2025-04-28 14:55 [facility] NOT DETECTED (missing) Negative results for this organism do not preclude infection with this organism and may require additional laboratory testing (e.g., bacterial and viral culture, immunofluorescence, and radiography) when evaluating a patient with possible respiratory tract infection. B. PERTUSSIS- RESP PCR PANEL 2025-04-28 14:55 [facility] NOT DETECTED (missing) Negative results for this organism do not preclude infection with this organism and may require additional laboratory testing (e.g., bacterial and viral culture, immunofluorescence, and radiography) when evaluating a patient with possible respiratory tract infection. C. PNEUMONIAE- RESP PCR PANEL 2025-04-28 14:55 [facility] NOT DETECTED (missing) Negative results for this organism do not preclude infection with this organism and may require additional laboratory testing (e.g., bacterial and viral culture, immunofluorescence, and radiography) when evaluating a patient with possible respiratory tract infection. M. PNEUMONIAE- RESP PCR PANEL 2025-04-28 14:55 [facility] NOT DETECTED (missing) Negative results for [...] not be detected by nasopharyngeal specimen. CORONAVIRUS [id number] PCR 2025-04-28 14:55 [facility] NOT DETECTED (missing) Negative results in the setting ofa respiratory illness may be due to infection with pathogens not detected by this test, or lower respiratory tract infection that may not be detected by nasopharyngeal specimen. CORONAVIRUS [id number] PCR 2025-04-28 14:55 [facility] NOT DETECTED [...] 3/ul (missing) MONOCYTES # (AUTO) 2025-04-28 15:04 [employer] 0.3 10 3/ul (missing) CREATININE 2025-04-28 15:04 [employer] 0.6 mg/dl As of February 2023 testing method has changed, this may include reference ranges. LYMPHOCYTES # (AUTO) 2025-04-28 15:04 [employer] 0.9 10 3/ul (missing) BILIRUBIN,TOTAL 2025-04-28 15:04 [employer] 1.6 mg/dl As of February 2023 testing method has changed, this may include reference ranges. ALBUMIN/GLOBULIN RATIO 2025-04-28 15:04 [employer] 1.7 (missing) (missing) GFR - MDRD 2025-04-28 15:04 [employer] 100 (missing) The IDMS-traceable MDRD Study Equation [...] October 2011. ALT ALANINE AMINOTRANSFERASE 2025-04-28 15:04 [employer] 11 iu/l As of February 2023 testing method has changed, this may include reference ranges. HGB - HEMOGLOBIN 2025-04-28 15:04 [employer] 11.9 g/dl (missing) GLUCOSE 2025-04-28 15:04 [employer] 113 mg/dl As of February 2023 testing method has changed, this may include reference ranges. RED CELL DISTRIBUTION WIDTH 2025-04-28 15:04 [employer] 13.0 % (missing) SODIUM 2025-04-28 15:04 [employer] 139 mmol/l (missing) AST ASPARTATE AMINOTRANSFERASE 2025-04-28 15:04 [employer] 14 iu/l As of February 2023 testing method has changed, this may include reference ranges. VBG BASE EXCESS 2025-04-28 15:04 [employer] 15.0 mmol/l (missing) TROPONIN I HIGH SENSITIVITY 2025-04-28 15:04 [employer] 17.8 ng/l Critical result TNIHS 17.8 pg/mL called to and read back by ED/DEV Bowen RN at 28-Apr-2025 15:43 by [email or web address]. A HIGH SENSITIVITY TROPONIN result of >= 14.9 ng/L for females is considered POSITIVE. A HIGH SENSITIVITY TROPONIN result of >= 19.8 ng/L for males is considered POSITIVE. A HIGH SENSITIVITY TROPONIN result of >= 17.9 ng/L for unspecified is considered POSITIVE. GLOBULIN 2025-04-28 15:04 [employer] 2.4 g/dl (missing) PLT - PLATELET COUNT 2025-04-28 15:04 [employer] 236 10 3/ul (missing) MEAN CORPUSCULAR HEMOGLOBIN 2025-04-28 15:04 [employer] 28.3 pg (missing) POTASSIUM 2025-04-28 15:04 [employer] 3.9 mmol/l As of February 2023 testing method has changed, this may include reference ranges. MEAN CORPUSCULAR HGB CONC 2025-04-28 15:04 [employer] 31.6 g/dl (missing) VBG PO2 2025-04-28 15:04 [employer] 33.8 mmhg (missing) CARBON DIOXIDE - CO2 2025-04-28 15:04 [employer] 37 mmol/l As of February 2023 testing method has changed, this may include reference ranges. HCT - HEMATOCRIT 2025-04-28 15:04 [employer] 37.7 % (missing) ANION GAP 2025-04-28 15:04 [employer] 4.0 (missing) (missing) ALBUMIN 2025-04-28 15:04 [facility] 4.1 g/dl As of February 2023 testing method has changed, this may include reference ranges. RED BLOOD COUNT 2025-04-28 15:04 [facility] 4.21 10 6/ul (missing) NEUTROPHILS # (AUTO) 2025-04-28 15:04 [employer] 4.8 10 3/ul (missing) VBG HCO3 2025-04-28 15:04 [employer] 40.2 mmol/l (missing) VBG TOTAL CO2 2025-04-28 15:04 [employer] 42.2 mmol/l (missing) VBG OXYGEN SATURATION 2025-04-28 15:04 [facility] 52.0 % (missing) WHITE BLOOD COUNT 2025-04-28 15:04 [employer] 6.2 x10 3/ul (missing) TOTAL PROTEIN 2025-04-28 15:04 [employer] 6.5 g/dl As of February 2023 testing method has changed, this may include reference ranges. ALKALINE PHOSPHATASE 2025-04-28 15:04 [employer] 63 iu/l As of February 2023 testing method has changed, this may include reference ranges. VBG PCO2 2025-04-28 15:04 [employer] 65.3 mmhg (missing) VBG PH 2025-04-28 15:04 [employer] 7.393 (missing) (missing) MEAN CORPUSCULAR VOLUME 2025-04-28 15:04 [employer] 89.5 fl (missing) BUN - BLOOD UREA NITROGEN 2025-04-28 15:04 [facility] 9 mg/dl As of February 2023 testing method has changed, this may include reference ranges. CALCIUM 2025-04-28 15:04 [employer] 9.8 mg/dl As of February 2023 testing method has changed, this may include reference ranges. MEAN PLATELET VOLUME 2025-04-28 15:04 [employer] 9.9 fl (missing) CHLORIDE 2025-04-28 15:04 [facility] 98 mmol/l As of February 2023 testing method has changed, this may include reference ranges. Result panel 3 TROPONIN I HIGH SENSITIVITY 2025-04-28 16:35 [facility] 20.8 ng/l Critical result TNIHS 20.8 pg/mL called to and read back by JANICE/BLU Bello RN at 28-Apr-2025 17:00 by [email or web address]. A HIGH SENSITIVITY TROPONIN result of >= 14.9 ng/L for females is considered POSITIVE. A HIGH SENSITIVITY TROPONIN result of >= 19.8 ng/L for males is considered POSITIVE. A HIGH SENSITIVITY TROPONIN result of >= 17.9 ng/L for unspecified is considered POSITIVE. Result panel 4 NUCLEATED RED BLOOD CELLS AUTO 2025-05-17 00:46 [facility] 0.0 /100wbc (missing) BASOPHILS # (AUTO) 2025-05-17 00:46 [facility] 0.0 10 3/ul (missing) NRBC ABSOLUTE COUNT (AUTO) 2025-05-17 00:46 [facility] 0.00 x10 3/ul (missing) EOSINOPHILS # (AUTO) 2025-05-17 00:46 [facility] 0.2 10 3/ul (missing) MONOCYTES # (AUTO) 2025-05-17 00:46 [facility] 0.6 10 3/ul (missing) CREATININE 2025-05-17 00:46 [facility] 0.7 mg/dl As of February 2023 testing method has changed, this may include reference ranges. LYMPHOCYTES # (AUTO) 2025-05-17 00:46 [facility] 1.0 10 3/ul (missing) ALBUMIN/GLOBULIN RATIO 2025-05-17 00:46 [facility] 1.4 (missing) (missing) BILIRUBIN,TOTAL 2025-05-17 00:46 [facility] 1.6 mg/dl As of February 2023 testing method has changed, this may include reference ranges. LIPASE 2025-05-17 00:46 [facility] 10 u/l As of February 2023 testing method has changed, this may include reference ranges. ALT ALANINE AMINOTRANSFERASE 2025-05-17 00:46 [facility] 11 iu/l As of February 2023 testing method has changed, this may include reference ranges. HGB - HEMOGLOBIN 2025-05-17 00:46 [facility] 11.1 g/dl (missing) GLUCOSE 2025-05-17 00:46 [facility] [email or web address] 111 mg/dl As of February 2023 testing method has changed, this may include reference ranges. RED CELL DISTRIBUTION WIDTH 2025-05-17 00:46 [facility] 12.9 % (missing) BUN - BLOOD UREA NITROGEN 2025-05-17 00:46 [facility] [email or web address] 13 mg/dl As of February 2023 testing method has changed, this may include reference ranges. SODIUM 2025-05-17 00:46 [facility] 133 mmol/l (missing) AST ASPARTATE AMINOTRANSFERASE 2025-05-17 00:46 [facility] 15 iu/l As of February 2023 testing method has changed, this may include reference ranges. ANION GAP 2025-05-17 00:46 [facility] 2.0 (missing) (missing) GLOBULIN 2025-05-17 00:46 [facility] 2.6 g/dl (missing) TROPONIN I HIGH SENSITIVITY 2025-05-17 00:46 [employer] [facility] 21.1 ng/l Critical result TNIHS 21.1 [...] POSITIVE. PLT - PLATELET COUNT 2025-05-17 00:46 [facility] 214 10 3/ul (missing) MEAN CORPUSCULAR HEMOGLOBIN 2025-05-17 00:46 [facility] 28.4 pg (missing) ALBUMIN 2025-05-17 00:46 [facility] 3.7 g/dl As of February 2023 testing method has changed, this may include reference ranges. RED BLOOD COUNT 2025-05-17 00:46 [facility] 3.91 10 6/ul (missing) MEAN CORPUSCULAR HGB CONC 2025-05-17 00:46 [employer] [facility] 32.4 g/dl (missing) HCT - HEMATOCRIT 2025-05-17 00:46 [facility] 34.3 % (missing) CARBON DIOXIDE - CO2 2025-05-17 00:46 [facility] 38 mmol/l As of February 2023 testing method has changed, this may include reference ranges. POTASSIUM 2025-05-17 00:46 [facility] 4.1 mmol/l As of February 2023 testing method has changed, this may include reference ranges. NEUTROPHILS # (AUTO) 2025-05-17 00:46 [facility] 4.6 10 3/ul (missing) ALKALINE PHOSPHATASE 2025-05-17 00:46 [facility] 58 iu/l As of February 2023 testing method has changed, this may include reference ranges. TOTAL PROTEIN 2025-05-17 00:46 [facility] 6.3 g/dl As of February 2023 testing method has changed, this may include reference ranges. WHITE BLOOD COUNT 2025-05-17 00:46 [facility] 6.4 x10 3/ul (missing) GFR - MDRD 2025-05-17 00:46 [facility] 83 (missing) The IDMS-traceable MDRD Study Equation [...] October 2011. MEAN CORPUSCULAR VOLUME 2025-05-17 00:46 [facility] 87.7 fl (missing) MEAN PLATELET VOLUME 2025-05-17 00:46 [facility] 9.4 fl (missing) CALCIUM 2025-05-17 00:46 [facility] 9.6 mg/dl As of February 2023 testing method has changed, this may include reference ranges. CHLORIDE 2025-05-17 00:46 [facility] 93 mmol/l As of February 2023 testing method has changed, this may include reference ranges. Result panel 5 TROPONIN I HIGH SENSITIVITY 2025-05-17 03:27 [facility] 25.4 ng/l Critical result [facility] 25.4 pg/mL called to and read back by Paulette Ballard RN ED at 17-May-2025 03:53 by mariza. A HIGH SENSITIVITY TROPONIN result of >= 14.9 ng/L for females is considered POSITIVE. A HIGH SENSITIVITY TROPONIN result of >= 19.8 ng/L for males is considered POSITIVE. A HIGH SENSITIVITY TROPONIN result of >= 17.9 ng/L for unspecified is considered POSITIVE. Result panel 6 WBC,URINE 2025-05-17 06:50 [facility] 0-3 /hpf (missing) UROBILINOGEN,URIN E 2025-05-17 06:50 [...] 06:50 [facility] YELLOW (missing) URINE CATHETERIZED Result panel 7 THYROID STIMULATING HORMONE 2025-06-12 05:00 [facility] 0.17 uiu/ml (missing) FREE T4 (FREE THYROXINE) 2025-06-12 05:00 [email or web address] 1.08 ng/dl Biotin at >10 ng/mL concentration may cause significant interference. Result panel 8 WBC,URINE 2025-06-12 10:25 [facility] 0-3 /hpf (missing) RBC,URINE 2025-06-12 10:25 [facility] 0-5 /hpf (missing) UROBILINOGEN,URIN E 2025-06-12 10:25 [email or web address] 0.2 (NORMAL) e.u./dl (missing) SPECIFIC GRAVITY,URINE 2025-06-12 10:25 [facility] 1.010 (missing) (missing) KETONES,URINE (UA) 2025-06-12 10:25 [facility] 40 mg/dl (missing) PH,URINE 2025-06-12 10:25 [facility] 7.0 ph (missing) CLARITY,URINE 2025-06-12 10:25 [facility] CLEAR (missing) (missing) URINE MICROSCOPIC INDICATED? 2025-06-12 10:25 [facility] INDICATED (missing) (missing) LEUKOCYTE ESTERASE, URINE 2025-06-12 10:25 [facility] NEGATIVE (missing) (missing) NITRITE,URINE 2025-06-12 10:25 [facility] NEGATIVE (missing) (missing) BILIRUBIN,URINE 2025-06-12 10:25 [facility] NEGATIVE (missing) Bilirubin can be influenced by color interference. Please correlate positive results with clinical presentation GLUCOSE, URINE (UA) 2025-06-12 10:25 [facility] NEGATIVE mg/dl (missing) UR CULTURE IF IND 2025-06-12 10:25 [facility] NOT INDICATED (missing) (missing) SQUAMOUS EPITHELIAL CELL,UR 2025-06-12 10:25 [facility] RARE Squamous (missing) (missing) BACTERIA,URINE 2025-06-12 10:25 [facility] Rare /hpf (missing) AMORPHOUS SEDIMENT,UR 2025-06-12 10:25 [facility] Rare /lpf (missing) PROTEIN,URINE 2025-06-12 10:25 [facility] TRACE mg/dl (missing) OCCULT BLOOD,URINE 2025-06-12 10:25 [facility] TRACE-INTACT (missing) (missing) COLOR,URINE 2025-06-12 10:25 [facility] YELLOW (missing) URINE CATHETERIZED Result panel 9 NUCLEATED RED BLOOD CELLS AUTO 2025-06-12 11:30 [facility] 0.0 /100wbc (missing) BASOPHILS # (AUTO) 2025-06-12 11:30 [facility] 0.0 10 3/ul (missing) EOSINOPHILS # (AUTO) 2025-06-12 11:30 [facility] 0.0 10 3/ul (missing) NRBC ABSOLUTE COUNT (AUTO) 2025-06-12 11:30 [facility] 0.00 x10 3/ul (missing) MONOCYTES # (AUTO) 2025-06-12 11:30 [facility] 0.3 10 3/ul (missing) LYMPHOCYTES # (AUTO) 2025-06-12 11:30 [facility] 0.5 10 3/ul (missing) CREATININE 2025-06-12 11:30 [facility] 0.5 mg/dl As of February 2023 testing method has changed, this may include reference ranges. ALBUMIN/GLOBULIN RATIO 2025-06-12 11:30 [facility] 1.4 (missing) (missing) MAGNESIUM 2025-06-12 11:30 [facility] 1.4 mg/dl As of February 2023 testing method has changed, this may include reference ranges. GLUCOSE 2025-06-12 11:30 [facility] 102 mg/dl As of February 2023 testing method has changed, this may include reference ranges. ALT ALANINE AMINOTRANSFERASE 2025-06-12 11:30 [employer] [facility] 11 iu/l As of February 2023 testing method has changed, this may include reference ranges. HGB - HEMOGLOBIN 2025-06-12 11:30 [facility] 12.0 g/dl (missing) RED CELL DISTRIBUTION WIDTH 2025-06-12 11:30 [facility] 12.8 % (missing) GFR - MDRD 2025-06-12 11:30 [facility] 123 (missing) The IDMS-traceable MDRD Study Equation has [...] ation/gfr/creatin ine-stand ardization, last updated October 2011. SODIUM 2025-06-12 11:30 [facility] 129 mmol/l (missing) BUN - BLOOD UREA NITROGEN 2025-06-12 11:30 [facility] 17 mg/dl As of February 2023 testing method has changed, this may include reference ranges. AST ASPARTATE AMINOTRANSFERASE 2025-06-12 11:30 [facility] 18 iu/l As of February 2023 testing method has changed, this may include reference ranges. BILIRUBIN,TOTAL 2025-06-12 11:30 [facility] 2.1 mg/dl As of February 2023 testing method has changed, this may include reference ranges. GLOBULIN 2025-06-12 11:30 [facility] 2.6 g/dl (missing) PLT - PLATELET COUNT 2025-06-12 11:30 [facility] 267 10 3/ul (missing) MEAN CORPUSCULAR HEMOGLOBIN 2025-06-12 11:30 [facility] 28.0 pg (missing) POTASSIUM 2025-06-12 11:30 [facility] 3.4 mmol/l As of February 2023 testing method has changed, this may include reference ranges. ALBUMIN 2025-06-12 11:30 [facility] 3.7 g/dl As of February 2023 testing method has changed, this may include reference ranges. MEAN CORPUSCULAR HGB CONC 2025-06-12 11:30 [facility] 32.9 g/dl (missing) HCT - HEMATOCRIT 2025-06-12 11:30 [facility] 36.5 % (missing) NEUTROPHILS # (AUTO) 2025-06-12 11:30 [facility] 4.1 10 3/ul (missing) RED BLOOD COUNT 2025-06-12 11:30 [facility] 4.28 10 6/ul (missing) CARBON DIOXIDE - CO2 2025-06-12 11:30 [facility] 40 mmol/l Critical result CO2 40 mmol/L called to and read back by BLU Nelson RN/ED at 12-Jun-2025 11:49 by Jacquelyn. As of February 2023 testing method has changed, this may include reference ranges. ANION GAP 2025-06-12 11:30 [facility] 5.0 (missing) (missing) WHITE BLOOD COUNT 2025-06-12 11:30 [facility] 5.0 x10 3/ul (missing) TOTAL PROTEIN 2025-06-12 11:30 [facility] 6.3 g/dl As of February 2023 testing method has changed, this may include reference ranges. ALKALINE PHOSPHATASE 2025-06-12 11:30 [facility] 62 iu/l As of February 2023 testing method has changed, this may include reference ranges. CHLORIDE 2025-06-12 11:30 [facility] 84 mmol/l As of February 2023 testing method has changed, this may include reference ranges. MEAN CORPUSCULAR VOLUME 2025-06-12 11:30 [facility] 85.3 fl (missing) MEAN PLATELET VOLUME 2025-06-12 11:30 [facility] 9.4 fl (missing) CALCIUM 2025-06-12 11:30 [facility] 9.4 mg/dl As of February 2023 testing method has changed, this may include reference ranges. Result panel 10 VBG BASE EXCESS 2025-06-12 14:25 [facility] 16.9 mm ol/l (missing) VBG PO2 2025-06-12 14:25 [facility] 38.7 mmhg (missing) VBG HCO3 2025-06-12 14: [facility] 42.0 mmol/l (missing) VBG TOTAL CO2 2025-06-12 14:25 [facility] 44.1 mmol /l (missing) VBG OXYGEN SATURATION 2025-06-12 14:25 [facility] 58.0 % (missing) VBG PCO2 2025-06-12 14:25 [facility] 68.2 mmhg (missing) VBG PH 2025-06-12 14:25 [facility] 7.394 (missing ) (missing) Result panel 11 VBG BASE EXCESS 2025-06-12 15:16 [facility] 16.3 mm ol/l (missing) VBG HCO3 2025-06-12 15:16 [facility] 39.6 mmol/l (missing) VBG TOTAL CO2 2025-06-12 15:16 [facility] 41.2 mmol /l (missing) VBG PCO2 2025-06-12 15:16 [facility] 49.8 mmhg (missing) VBG PH 2025-06-12 15:16 [facility] 7.505 (missing ) (missing) VBG PO2 2025-06-12 15:16 [facility] 90.0 mmhg (missing) VBG OXYGEN SATURATION 2025-06-12 15:16 [facility] 98.0 % (missing) Result panel 12 C DIFFICILE TOXIN A/B 2025-06-12 23:50 [facility] Detected (missing) (missing) ADENOVIRUS F 40/41 2025-06-12 23:50 [facility] Not Detected (missing) (missing) ASTROVIRUS 2025-06-12 23:50 [facility] Not Detected (missing) (missing) CAMPYLOBACTER 2025-06-12 23:50 [facility] Not Detected (missing) (missing) CRYPTOSPORIDIUM 2025-06-12 23:50 [facility] Not Detected (missing) (missing) CYCLOSPORA CAYETANENSIS 2025-06-12 23:50 [facility] Not Detected (missing) (missing) ENTAMOEBA HISTOLYTICA 2025-06-12 23:50 [facility] Not Detected (missing) (missing) ENTEROAGGREGATIVE E COLI 2025-06-12 23:50 [facility] Not Detected (missing) (missing) ENTEROPATHOGENIC E COLI 2025-06-12 23:50 [facility] Not Detected (missing) (missing) ENTEROTOXIGENIC E COLI 2025-06-12 23:50 [facility] Not Detected (missing) (missing) GIARDIA LAMBLIA 2025-06-12 23:50 [facility] Not Detected (missing) (missing) NOROVIRUS GI/GII 2025-06-12 23:50 [facility] Not Detected (missing) (missing) PLESIOMONAS SHIGELLOIDES 2025-06-12 23:50 [facility] Not Detected (missing) (missing) ROTAVIRUS A 2025-06-12 23:50 [facility] Not Detected (missing) (missing) SALMONELLA 2025-06-12 23:50 [facility] Not Detected (missing) (missing) [id number] E COLI 2025-06-12 23:50 [facility] Not Detected (missing) (missing) SHIGELLA/ENTEROINVASIV E E COLI 2025-06-12 23:50 [facility] Not Detected (missing) (missing) VIBRIO CHOLERAE 2025-06-12 23:50 [facility] Not Detected (missing) (missing) VIBRIO 2025-06-12 23:50 [facility] Not Detected (missing) (missing) YERSINIA ENTEROCOLITICA 2025-06-12 23:50 [facility] Not Detected (missing) (missing) SAPOVIRUS 2025-06-12 23:50 [facility] Not Detected (missing) Performed at: [address], [address], [place], [place] [id number] Coagulant Dipper: Chadwick Portillo MD, Phone: [phone] E COLI O157 2025-06-12 23:50 [facility] Not applicable (missing) (missing) Result panel 13 PROCALCITONIN 2025-06-13 05:00 [facility] < 0.05 ng/ml PCT Concentration (n g/mL) Children >72hrs old and Adults Interpretation <0.5 Low risk of severe sepsis and/or septic shock >2.0 High risk of severe sepsis and/or septic shock Concentrations under 0.5 ng/mL do not exclude local infections or systemic infections in their initial stages (e.g. under six hours from onset of illness). PCT concentrations between 0.5 and 2.0 ng/mL should be interpreted with consideration of the patient's history. In this range, it is recommended to retest PCT within 6 to 24hours. Result panel 14 CREATININE 2025-06-13 05:30 [facility] 0.5 mg/dl As of February 2023 testing method has changed, this may include reference ranges. MAGNESIUM 2025-06-13 05:30 [facility] 1.9 mg/dl As of February 2023 testing method has changed, this may include reference ranges. HGB - HEMOGLOBIN 2025-06-13 05:30 [facility] 12.1 g /dl (missing) RED CELL DISTRIBUTION WIDTH 2025-06-13 05:30 [facility] 12.8 % (mi ssing) GFR - MDRD 2025-06-13 05:30 [facility] 123 (luis peoples) The IDMS-traceable MDRD Study Equation has been [...] caring for patients older than 70. References: http://www.nkdep.n ih.gov/lab-evaluat ion/gfr/creatinine -stand ardization, last updated October 2011. SODIUM 2025-06-13 05:30 [facility] 132 mmol/l (missing) GLUCOSE 2025-06-13 05:30 [facility] 133 mg/dl As of February 2023 testing method has changed, this may include reference ranges. BUN - BLOOD UREA NITROGEN 2025-06-13 05:30 [facility] 19 mg/dl As of Feb testing method has changed, this may include reference ranges. WHITE BLOOD COUNT 2025-06-13 05:30 [facility] 2.7 x10 3/ul (missing) MEAN CORPUSCULAR HEMOGLOBIN 2025-06-13 05:30 [facility] 28.3 pg (missing) PLT - PLATELET COUNT 2025-06-13 05:30 [facility] 283 10 3/ul (missing) POTASSIUM 2025-06-13 05:30 [facility] 3.3 mmol/l As of February 2023 testing method has changed, this may include reference ranges. MEAN CORPUSCULAR HGB CONC 2025-06-13 05:30 [facility] 33.6 g/dl (missing) HCT - HEMATOCRIT 2025-06-13 05:30 [facility] 36.0 % (missing) RED BLOOD COUNT 2025-06-13 05:30 [facility] 4.28 10 6/ul (missing) CARBON DIOXIDE - CO2 2025-06-13 05:30 [facility] 40 mmol/l Critical result CO2 40 mmol/L called to and read back by TWYLA Cano(KEVIN MS) at 13-Jun-2025 06:16 by damaris. As of February 2023 testing method has changed, this may include reference ranges. ANION GAP 2025-06-13 05:30 [facility] 6.0 (missing ) (missing) MEAN CORPUSCULAR VOLUME 2025-06-13 05:30 [facility] 84.1 fl (missing) CHLORIDE 2025-06-13 05:30 [facility] 86 mmol/l As of February 2023 testing method has changed, this may include reference ranges. CALCIUM 2025-06-13 05:30 [facility] 9.2 mg/dl As of February 2023 testing method has changed, this may include reference ranges. MEAN PLATELET VOLUME 2025-06-13 05:30 [employer] 9.5 fl (missing) Result panel 15 ABG ANALYSIS TIME 2025-06-13 10:45 [facility] 1055 (missing) (missing) ABG O2 LPM 2025-06-13 10:45 [facility] 2.00 lpm (missing) ABG BASE EXCESS 2025-06-13 10:45 [facility] 26.2 mmol/l (missing) ABG HCO3 2025-06-13 10:45 [facility] 48.3 mmol/l (missing) ABG TCO2 2025-06-13 10:45 [facility] 49.9 mmol/l Called to HAILEE Calixto RN/MS by Natalie Quintero MLS, ASCP at 1057 06/13/25. Read back(Y/N)? Y ABG PCO2 2025-06-13 10:45 [facility] 51 mmhg (missing) ABG PH 2025-06-13 10:45 [facility] 7.58 (missing) (missing) ABG PO2 2025-06-13 10:45 [facility] 82 mmhg (missing) ABG OXYGEN SATURATION 2025-06-13 10:45 [facility] 98 % (missing) ABG O2 DEVICE 2025-06-13 10:45 [facility] NASAL CANNULA (missing) (missing) RAVINDER TEST 2025-06-13 10:45 [facility] POSITIVE (missing) Collateral Circulation Present, consistent with a Positive Allens Test. Information or result provided by Respiratory Therapy. ABG SITE OF DRAW 2025-06-13 10:45 [email or web address] RIGHT RADIAL (missing) (missing) Result panel 16 MRSA PCR,CCU ADMIT 2025-06-13 12:30 [email or web address] NEGATIVE (missing) (missing) Result panel 17 BILIRUBIN,DIRECT 2025-06-14 04:44 [facility] 0.13 mg/dl As of February 2023 testing method has changed, this may include reference ranges. CREATININE 2025-06-14 04:44 [facility] 0.8 mg/dl As of February 2023 testing method has changed, this may include reference ranges. CALCIUM, IONIZED 2025-06-14 04:44 [facility] 1.23 mmol/l (missing) BILIRUBIN,INDIRECT 2025-06-14 04:44 [facility] 1.4 mg/dl (missing) ALBUMIN/GLOBULIN RATIO 2025-06-14 04:44 [facility] 1.5 (missing) (missing) BILIRUBIN,TOTAL 2025-06-14 04:44 [facility] 1.5 mg/dl As of February 2023 testing method has changed, this may include reference ranges. ALT ALANINE AMINOTRANSFERASE 2025-06-14 04:44 [facility] 10 iu/l As of February 2023 testing method has changed, this may include reference ranges. HGB - HEMOGLOBIN 2025-06-14 04:44 [facility] 12.5 g/dl (missing) RED CELL DISTRIBUTION WIDTH 2025-06-14 04:44 [employer] [facility] 13.0 % (missing) SODIUM 2025-06-14 04:44 [facility] 132 mmol/l (missing) GLUCOSE 2025-06-14 04:44 [facility] 150 mg/dl As of February 2023 testing method has changed, this may include reference ranges. AST ASPARTATE AMINOTRANSFERASE 2025-06-14 04:44 [facility] 18 iu/l As of February 2023 testing method has changed, this may include reference ranges. MAGNESIUM 2025-06-14 04:44 [facility] 2.0 mg/dl As of February 2023 testing method has changed, this may include reference ranges. GLOBULIN 2025-06-14 04:44 [facility] 2.4 g/dl (missing) VBG BASE EXCESS 2025-06-14 04:44 [facility] 20.7 mmol/l (missing) BUN - BLOOD UREA NITROGEN 2025-06-14 04:44 [employer] 28 mg/dl As of February 2023 testing method has changed, this may include reference ranges. VBG PO2 2025-06-14 04:44 [employer] [facility] 28.2 mmhg (missing) MEAN CORPUSCULAR HEMOGLOBIN 2025-06-14 04:44 [facility] 29.1 pg (missing) ANION GAP 2025-06-14 04:44 [facility] 3.0 (missing) (missing) ALBUMIN 2025-06-14 04:44 [facility] 3.7 g/dl As of February 2023 testing method has changed, this may include reference ranges. MEAN CORPUSCULAR HGB CONC 2025-06-14 04:44 [facility] 34.4 g/dl (missing) PLT - PLATELET COUNT 2025-06-14 04:44 [facility] 358 10 3/ul (missing) HCT - HEMATOCRIT 2025-06-14 04:44 [employer] [facility] 36.3 % (missing) VBG OXYGEN SATURATION 2025-06-14 04:44 [facility] 38.0 % (missing) PHOSPHORUS 2025-06-14 04:44 [employer] 4.1 mg/dl As of February 2023 testing method has changed, this may include reference ranges. RED BLOOD COUNT 2025-06-14 04:44 [facility] 4.30 10 6/ul (missing) POTASSIUM 2025-06-14 04:44 [facility] 4.4 mmol/l As of February 2023 testing method has changed, this may include reference ranges. CARBON DIOXIDE - CO2 2025-06-14 04:44 [facility] 41 mmol/l Critical result CO2 41 mmol/L called to and read back by Keila Loza RN ICU at 14-Jun-2025 05:15 by kaia. As of February 2023 testing method has changed, this may include reference ranges. VBG HCO3 2025-06-14 04:44 [facility] 45.2 mmol/l (missing) VBG TOTAL CO2 2025-06-14 04:44 [facility] 47.3 mmol/l (missing) ALKALINE PHOSPHATASE 2025-06-14 04:44 [facility] 57 iu/l As of February 2023 testing method has changed, this may include reference ranges. TOTAL PROTEIN 2025-06-14 04:44 [facility] 6.1 g/dl As of February 2023 testing method has changed, this may include reference ranges. VBG PCO2 2025-06-14 04:44 [facility] 67.4 mmhg (missing) VBG PH 2025-06-14 04:44 [facility] 7.426 (missing) (missing) VBG PH 2025-06-14 04:44 [facility] 7.431 (missing) (missing) WHITE BLOOD COUNT 2025-06-14 04:44 [facility] 7.8 x10 3/ul (missing) GFR - MDRD 2025-06-14 04:44 [facility] 71 (missing) The IDMS-traceable MDRD Study Equation has [...] last updated October 2011. MEAN CORPUSCULAR VOLUME 2025-06-14 04:44 [facility] 84.4 fl (missing) CHLORIDE 2025-06-14 04:44 [facility] 88 mmol/l As of February 2023 testing method has changed, this may include reference ranges. MEAN PLATELET VOLUME 2025-06-14 04:44 [facility] 9.5 fl (missing) CALCIUM 2025-06-14 04:44 [facility] 9.6 mg/dl As of February 2023 testing method has changed, this may include reference ranges. Result panel 18 CREATININE 2025-06-15 05:27 [facility] 0.7 mg/dl As of February 2023 testing method has changed, this may include reference ranges. CALCIUM, IONIZED 2025-06-15 05:27 [facility] 1.23 m mol/l (missing) MAGNESIUM 2025-06-15 05:27 [facility] 1.9 mg/dl As of February 2023 testing method has changed, this may include reference ranges. WHITE BLOOD COUNT 2025-06-15 05:27 [facility] 10.3 x10 3/ul (missing) HGB - HEMOGLOBIN 2025-06-15 05:27 [facility] 11.0 g /dl (missing) RED CELL DISTRIBUTION WIDTH 2025-06-15 05:27 [facility] 13.2 % (mi ssing) SODIUM 2025-06-15 05:27 [facility] 134 mmol/l (missing) VBG BASE EXCESS 2025-06-15 05:27 [facility] 19.1 mm ol/l (missing) PHOSPHORUS 2025-06-15 05:27 [facility] 2.6 mg/dl As of February 2023 testing method has changed, this may include reference ranges. BUN - BLOOD UREA NITROGEN 2025-06-15 05:27 [facility] 24 mg/dl As of Feb testing method has changed, this may include reference ranges. MEAN CORPUSCULAR HEMOGLOBIN 2025-06-15 05:27 [facility] 28.7 pg (missing) RED BLOOD COUNT 2025-06-15 05:27 [facility] 3.83 10 6/ul (missing) PLT - PLATELET COUNT 2025-06-15 05:27 [facility] 302 10 3/ul (missing) HCT - HEMATOCRIT 2025-06-15 05:27 [facility] 32.9 % (missing) MEAN CORPUSCULAR HGB CONC 2025-06-15 05:27 [facility] 33.4 g/dl (missing) CARBON DIOXIDE - CO2 2025-06-15 05:27 [facility] 37 mmol/l As of February 2023 testing method has changed, this may include reference ranges. VBG PO2 2025-06-15 05:27 [facility] 37.5 mmhg (missing) ANION GAP 2025-06-15 05:27 [facility] 4.0 (missing ) (missing) POTASSIUM 2025-06-15 05:27 [facility] 4.3 mmol/l As of February 2023 testing method has changed, this may include reference ranges. VBG HCO3 2025-06-15 05:27 [facility] 43.1 mmol/l (missing) VBG TOTAL CO2 2025-06-15 05:27 [facility] 44.9 mmol /l (missing) VBG PCO2 2025-06-15 05:27 [facility] 59.3 mmhg (missing) VBG OXYGEN SATURATION 2025-06-15 05:27 [facility] 62.0 % (missing) VBG PH 2025-06-15 05:27 [facility] 7.441 (missing ) (missing) VBG PH 2025-06-15 05:27 [facility] 7.465 (missing ) (missing) GFR - MDRD 2025-06-15 05:27 [facility] 83 (missin g) The IDMS-traceable MDRD Study Equation has been [...] caring for patients older than 70. References: http://www.nkdep.n ih.gov/lab-evaluat ion/gfr/creatinine -stand ardization, last updated October 2011. MEAN CORPUSCULAR VOLUME 2025-06-15 05:27 [facility] 85.9 fl (missing) CALCIUM 2025-06-15 05:27 [facility] 9.3 mg/dl As of February 2023 testing method has changed, this may include reference ranges. MEAN PLATELET VOLUME 2025-06-15 05:27 [facility] 9.4 fl (missing) GLUCOSE 2025-06-15 05:27 [facility] 90 mg/dl As of February 2023 testing method has changed, this may include reference ranges. CHLORIDE 2025-06-15 05:27 [facility] 93 mmol/l As of February 2023 testing method has changed, this may include reference ranges. Result panel 19 ABG ANALYSIS TIME 2025-06-15 13:20 [facility] 1332 (missing) (missing) ABG BASE EXCESS 2025-06-15 13:20 [facility] 14.2 mmol/l (missing) ABG O2 LPM 2025-06-15 13:20 [facility] 2.00 lpm (missing) ABG HCO3 2025-06-15 13:20 [facility] 38.2 mmol/l (missing) ABG TCO2 2025-06-15 13:20 [facility] 39.8 mmol/l Called to MELLY Peoples/KEVIN/ICU by Tate Cronin M.T.([facility]) at 1333 06/15/25. Read back(Y/N)? Y ABG PCO2 2025-06-15 13:20 [facility] 53 mmhg (missing) ABG PH 2025-06-15 13:20 [facility] 7.46 (missing) (missing) ABG PO2 2025-06-15 13:20 [facility] 71 mmhg (missing) ABG OXYGEN SATURATION 2025-06-15 13:20 [facility] 96 % (missing) ABG O2 DEVICE 2025-06-15 13:20 [facility] NASAL CANNULA (missing) (missing) RAVINDER TEST 2025-06-15 13:20 [facility] NOT APPLICABLE (missing) Information or result provided by Respiratory Therapy. ABG SITE OF DRAW 2025-06-15 13:20 [facility] RIGHT BRACHIAL (missing) (missing) Result panel 20 CREATININE 2025-06-16 04:34 [facility] 0.5 mg/dl As of February 2023 testing method has changed, this may include reference ranges. CALCIUM, IONIZED 2025-06-16 04:34 [facility] 1.21 m mol/l (missing) MAGNESIUM 2025-06-16 04:34 [facility] 1.7 mg/dl As of February 2023 testing method has changed, this may include reference ranges. GLUCOSE 2025-06-16 04:34 [facility] 106 mg/dl As of February 2023 testing method has changed, this may include reference ranges. HGB - HEMOGLOBIN 2025-06-16 04:34 [facility] 11.1 g /dl (missing) GFR - MDRD 2025-06-16 04:34 [facility] 123 (missin g) The IDMS-traceable MDRD Study Equation has been [...] caring for patients older than 70. References: http://www.nkdep.n ih.gov/lab-evaluat ion/gfr/creatinine -stand ardization, last updated October 2011. RED CELL DISTRIBUTION WIDTH 2025-06-16 04:34 [facility] 13.1 % (mi ssing) SODIUM 2025-06-16 04:34 [facility] 138 mmol/l (missing) BUN - BLOOD UREA NITROGEN 2025-06-16 04:34 [facility] 17 mg/dl As of Feb testing method has changed, this may include reference ranges. ANION GAP 2025-06-16 04:34 [facility] 2.0 (missing ) (missing) PHOSPHORUS 2025-06-16 04:34 [facility] 2.3 mg/dl As of February 2023 testing method has changed, this may include reference ranges. MEAN CORPUSCULAR HEMOGLOBIN 2025-06-16 04:34 [facility] 29.1 pg (missing) PLT - PLATELET COUNT 2025-06-16 04:34 [facility] 297 10 3/ul (missing) POTASSIUM 2025-06-16 04:34 [facility] 3.7 mmol/l As of February 2023 testing method has changed, this may include reference ranges. RED BLOOD COUNT 2025-06-16 04:34 [facility] 3.82 10 6/ul (missing) HCT - HEMATOCRIT 2025-06-16 04:34 [facility] 32.8 % (missing) MEAN CORPUSCULAR HGB CONC 2025-06-16 04:34 [facility] 33.8 g/dl (missing) CARBON DIOXIDE - CO2 2025-06-16 04:34 [facility] 38 mmol/l As of February 2023 testing method has changed, this may include reference ranges. VBG PH 2025-06-16 04:34 [facility] 7.503 (missing ) (missing) WHITE BLOOD COUNT 2025-06-16 04:34 [facility] 8.8 x10 3/ul (missing) CALCIUM 2025-06-16 04:34 [facility] 8.9 mg/dl As of February 2023 testing method has changed, this may include reference ranges. MEAN CORPUSCULAR VOLUME 2025-06-16 04:34 [facility] 85.9 fl (missing) MEAN PLATELET VOLUME 2025-06-16 04:34 [facility] 9.8 fl (missing) CHLORIDE 2025-06-16 04:34 [facility] 98 mmol/l As of February 2023 testing method has changed, this may include reference ranges. Result panel 21 CREATININE 2025-06-17 04:50 [facility] 0.5 mg/dl As of February 2023 testing method has changed, this may include reference ranges. CALCIUM, IONIZED 2025-06-17 04:50 [facility] 1.14 m mol/l (missing) MAGNESIUM 2025-06-17 04:50 [facility] 1.7 mg/dl As of February 2023 testing method has changed, this may include reference ranges. GLUCOSE 2025-06-17 04:50 [facility] 111 mg/dl As of February 2023 testing method has changed, this may include reference ranges. BUN - BLOOD UREA NITROGEN 2025-06-17 04:50 [facility] 12 mg/dl As of Feb testing method has changed, this may include reference ranges. GFR - MDRD 2025-06-17 04:50 Hi[facility]version 123 (luis peoples) The IDMS-traceable MDRD Study Equation has been [...] caring for patients older than 70. References: http://www.nkdep.[facility].gov/lab-evaluatio n/gfr/creatinine-st and ardization, last updated October 2011. SODIUM 2025-06-17 04:50 [facility]version 137 mmol/l (missing) PHOSPHORUS 2025-06-17 04:50 [facility] 2.4 mg/dl As of February 2023 testing method has changed, this may include reference ranges. POTASSIUM 2025-06-17 04:50 [facility] 3.0 mmol/l As of February 2023 testing method has changed, this may include reference ranges. CARBON DIOXIDE - CO2 2025-06-17 04:50 [facility] 39 mmol/l Critical result CO2 39 mmol/L called to and read back by KEILA Fish(NURSE CONSULTANT) at 17-Jun-2025 05:22 by damaris. As of February 2023 testing method has changed, this may include reference ranges. ANION GAP 2025-06-17 04:50 [facility] 5.0 (missing ) (missing) VBG PH 2025-06-17 04:50 [facility] 7.562 (missing ) (missing) CALCIUM 2025-06-17 04:50 [facility] 8.7 mg/dl As of February 2023 testing method has changed, this may include reference ranges. CHLORIDE 2025-06-17 04:50 [facility] 93 mmol/l As of February 2023 testing method has changed, this may include reference ranges. Result panel 22 CREATININE 2025-06-18 04:21 [facility] 0.5 mg/dl As of February 2023 testing method has changed, this may include reference ranges. CALCIUM, IONIZED 2025-06-18 04:21 [facility] 1.09 m mol/l (missing) MAGNESIUM 2025-06-18 04:21 [facility] 1.8 mg/dl As of February 2023 testing method has changed, this may include reference ranges. GFR - MDRD 2025-06-18 04:21 [facility] 123 (in g) The IDMS-traceable MDRD Study Equation has been [...] caring for patients older than 70. References: http://www.nkdep.ni h.gov/lab-evaluatio n/gfr/creatinine-st and ardization, last updated October 2011. GLUCOSE 2025-06-18 04: [facility] 124 mg/dl As of February 2023 testing method has changed, this may include reference ranges. SODIUM 2025-06-18 04:21 [facility] 138 mmol/l (missing) BUN - BLOOD UREA NITROGEN 2025-06-18 04:21 [facility] 16 mg/dl As of Feb testing method has changed, this may include reference ranges. ANION GAP 2025-06-18 04:21 [facility] 2.0 (missing ) (missing) POTASSIUM 2025-06-18 04:21 [facility] 2.8 mmol/l As of February 2023 testing method has changed, this may include reference ranges. PHOSPHORUS 2025-06-18 04:21 [facility] 3.2 mg/dl As of February 2023 testing method has changed, this may include reference ranges. CARBON DIOXIDE - CO2 2025-06-18 04:21 [facility] 41 mmol/l Critical result CO2 41 mmol/L called to and read back by VIVEK LYNCH RN at 18-Jun-2025 04:56 by betty. As of February 2023 testing method has changed, this may include reference ranges. VBG PH 2025-06-18 04:21 [facility] 7.615 (missing ) Called to CHUY Scott EQUIPMENT SCHEDULER by BIJAN FerminT([facility]) at 0429 06/18/25. Read back(Y/N)? Y CALCIUM 2025-06-18 04:21 [email or web address] 8.5 mg/dl As of February 2023 testing method has changed, this may include reference ranges. CHLORIDE 2025-06-18 04:21 [facility] 95 mmol/l As of February 2023 testing method has changed, this may include reference ranges. Result panel 23 CREATININE 2025-06-18 17:17 [facility] 0.5 mg/dl As of February 2023 testing method has changed, this may include reference ranges. BUN - BLOOD UREA NITROGEN 2025-06-18 17:17 [email or web address] 11 mg/dl As of Feb testing method has changed, this may include reference ranges. GLUCOSE 2025-06-18 17:17 [facility] 120 mg/dl As of February 2023 testing method has changed, this may include reference ranges. GFR - MDRD 2025-06-18 17:17 [facility] 123 (in g) The IDMS-traceable MDRD Study Equation has been [...] caring for patients older than 70. References: http://www.nkdep.nih .gov/lab-evaluation/ gfr/creatinine-stand ardization, last updated October 2011. SODIUM 2025-06-18 17:17 [facility] 139 mmol/l (missing) ANION GAP 2025-06-18 17:17 [facility] 2.0 (missing ) (missing) POTASSIUM 2025-06-18 17:17 [facility] 3.4 mmol/l As of February 2023 testing method has changed, this may include reference ranges. CARBON DIOXIDE - CO2 2025-06-18 17:17 [facility] 38 mmol/l As of Feb testing method has changed, this may include reference ranges. CALCIUM 2025-06-18 17:17 [facility] 8.9 mg/dl As of February 2023 testing method has changed, this may include reference ranges. CHLORIDE 2025-06-18 17:17 [facility] 99 mmol/l As of February 2023 testing method has changed, this may include reference ranges. Result panel 24 CREATININE 2025-06-19 04:57 [facility] 0.5 mg/dl As of February 2023 testing method has changed, this may include reference ranges. CALCIUM, IONIZED 2025-06-19 04:57 [facility] 1.13 m mol/l (missing) MAGNESIUM 2025-06-19 04:57 [facility] 1.7 mg/dl As of February 2023 testing method has changed, this may include reference ranges. CHLORIDE 2025-06-19 04:57 [facility] 103 mmol/l As of February 2023 testing method has changed, this may include reference ranges. BUN - BLOOD UREA NITROGEN 2025-06-19 04:57 [facility] 11 mg/dl As of Feb testing method has changed, this may include reference ranges. GFR - MDRD 2025-06-19 04:57 [facility] 123 (missin g) The IDMS-traceable MDRD Study Equation has been [...] caring for patients older than 70. References: http://www.nkdep.ni h.gov/lab-evaluatio n/gfr/creatinine-st and ardization, last updated October 2011. SODIUM 2025-06-19 04:57 [facility] 138 mmol/l (missing) ANION GAP 2025-06-19 04:57 [email or web address] 2.0 (missing ) (missing) PHOSPHORUS 2025-06-19 04:57 [email or web address] 3.0 mg/dl As of February 2023 testing method has changed, this may include reference ranges. CARBON DIOXIDE - CO2 2025-06-19 04:57 [facility] 33 mmol/l As of Feb testing method has changed, this may include reference ranges. POTASSIUM 2025-06-19 04:57 [facility] 4.1 mmol/l As of February 2023 testing method has changed, this may include reference ranges. VBG PH 2025-06-19 04:57 [email or web address] 7.532 (missing ) (missing) CALCIUM 2025-06-19 04:57 [facility] 8.1 mg/dl As of February 2023 testing method has changed, this may include reference ranges. GLUCOSE 2025-06-19 04:57 [facility] 94 mg/dl As of February 2023 testing method has changed, this may include reference ranges. Result panel 25 CREATININE 2025-06-20 04:29 [facility] 0.6 mg/dl As of February 2023 testing method has changed, this may include reference ranges. ANION GAP 2025-06-20 04:29 [facility] 1.0 (missing ) (missing) CALCIUM, IONIZED 2025-06-20 04:29 [facility] 1.18 m mol/l (missing) MAGNESIUM 2025-06-20 04:29 [facility] 1.8 mg/dl As of February 2023 testing method has changed, this may include reference ranges. CHLORIDE 2025-06-20 04:29 [facility] 102 mmol/l As of February 2023 testing method has changed, this may include reference ranges. GLUCOSE 2025-06-20 04:29 [email or web address] 111 mg/dl As of February 2023 testing method has changed, this may include reference ranges. BUN - BLOOD UREA NITROGEN 2025-06-20 04:29 [email or web address] 14 mg/dl As of Feb testing method has changed, this may include reference ranges. SODIUM 2025-06-20 04:29 [email or web address] 140 mmol/l (missing) PHOSPHORUS 2025-06-20 04:29 [facility] 3.8 mg/dl As of February 2023 testing method has changed, this may include reference ranges. CARBON DIOXIDE - CO2 2025-06-20 04:29 [facility] 37 mmol/l As of Feb testing method has changed, this may include reference ranges. POTASSIUM 2025-06-20 04:29 [facility] 4.6 mmol/l As of February 2023 testing method has changed, this may include reference ranges. VBG PH 2025-06-20 04:29 [facility] 7.446 (missing ) (missing) CALCIUM 2025-06-20 04:29 [facility] 8.6 mg/dl As of February 2023 testing method has changed, this may include reference ranges. GFR - MDRD 2025-06-20 04:29 [facility] 99 (luis peoples) The IDMS-traceable MDRD Study Equation has been [...] caring for patients older than 70. References: http://www.nkdep.ni h.gov/lab-evaluatio n/gfr/creatinine-st and ardization, last updated October 2011. Result panel 26 NUCLEATED RED BLOOD CELLS AUTO 2025-06-20 04:43 [facility] 0.0 /100wbc (missing) BASOPHILS # (AUTO) 2025-06-20 04:43 [facility] 0.0 10 3/ul (missing) NRBC ABSOLUTE COUNT (AUTO) 2025-06-20 04:43 [facility] 0 .00 x10 3/ul (missing) EOSINOPHILS # (AUTO) 2025-06-20 04:43 [facility] 0.4 10 3/ul (missing) MONOCYTES # (AUTO) 2025-06-20 04:43 [facility] 0.8 10 3/ul (missing) LYMPHOCYTES # (AUTO) 2025-06-20 04:43 [facility] 1.6 10 3/ul (missing) MEAN PLATELET VOLUME 2025-06-20 04:43 [facility] 10.[facility] fl (missing) HGB - HEMOGLOBIN 2025-06-20 04:43 [facility] 11.1 g /dl (missing) RED CELL DISTRIBUTION WIDTH 2025-06-20 04:43 [facility] 14.0 % (missing) MEAN CORPUSCULAR HEMOGLOBIN 2025-06-20 04:43 [facility] 28.5 pg (missing) RED BLOOD COUNT 2025-06-20 04:43 [facility] 3.90 10 6/ul (missing) MEAN CORPUSCULAR HGB CONC 2025-06-20 04:43 [facility] 30 .5 g/dl (missing) PLT - PLATELET COUNT 2025-06-20 04:43 [facility] 321 10 3/ul (missing) HCT - HEMATOCRIT 2025-06-20 04:43 [facility] 36.4 % (missing) NEUTROPHILS # (AUTO) 2025-06-20 04:43 [facility] 5.3 10 3/ul (missing) WHITE BLOOD COUNT 2025-06-20 04:43 [facility] 8.1 x10 3/ul (missing) MEAN CORPUSCULAR VOLUME 2025-06-20 04:43 [facility] 93.3 fl (missing) Result panel 27 LACTIC ACID, VENOUS 2025-06-20 13:27 [facility] 0.6 mmol/l N As of February 2023 testing method has changed, this may include reference ranges. Result panel 28 WBC,URINE 2025-06-20 15:00 [facility] 0-3 /hpf (missing) UROBILINOGEN,URI NE 2025-06-20 15:00 [facility] 0.2 (NORMAL) e.u./dl (missing) SPECIFIC GRAVITY,URINE 2025-06-20 15:00 [facility] 1.030 (missing) (missing) RBC,URINE 2025-06-20 15:00 [facility] 11-25 /hpf (missing) PROTEIN,URINE 2025-06-20 15:00 [facility] 30 mg/dl (missing) PH,URINE 2025-06-20 15:00 [facility] 6.0 ph (missing) SQUAMOUS EPITHELIAL CELL,UR 2025-06-20 15:00 [facility] FEW Squamous (missing) (missing) BACTERIA,URINE 2025-06-20 15:00 [facility] Few /hpf (missing) CLARITY,URINE 2025-06-20 15:00 [facility] HAZY (missing) (missing) OCCULT BLOOD,URINE 2025-06-20 15:00 [facility] MODERATE (missing) (missing) LEUKOCYTE ESTERASE, URINE 2025-06-20 15:00 [facility] NEGATIVE (missing) (missing) NITRITE,URINE 2025-06-20 15:00 [facility] NEGATIVE (missing) (missing) BILIRUBIN,URINE 2025-06-20 15:00 [facility] NEGATIVE (missing) Bilirubin can be influenced by color interference. Please correlate positive results with clinical presentation GLUCOSE, URINE (UA) 2025-06-20 15:00 [facility] NEGATIVE mg/dl (missing) KETONES,URINE (UA) 2025-06-20 15:00 [facility] NEGATIVE mg/dl (missing) UR CULTURE IF IND 2025-06-20 15:00 [facility] NOT INDICATED (missing) (missing) COLOR,URINE 2025-06-20 15:00 [facility] YELLOW (missing) URINE CATHETERIZED Result panel 29 ANION GAP 2025-06-21 04:23 [facility] 0.0 (missing ) (missing) NUCLEATED RED BLOOD CELLS AUTO 2025-06-21 04:23 [facility] 0.0 /100wbc (missing) BASOPHILS # (AUTO) 2025-06-21 04:23 [facility] 0.0 10 3/ul (missing) NRBC ABSOLUTE COUNT (AUTO) 2025-06-21 04:23 [facility] 0.00 x10 3/ul (missing) EOSINOPHILS # (AUTO) 2025-06-21 04:23 [facility] 0.4 10 3/ul (missing) CREATININE 2025-06-21 04:23 [facility] 0.5 mg/dl As of February 2023 testing method has changed, this may include reference ranges. MONOCYTES # (AUTO) 2025-06-21 04:23 [facility] 0.9 10 3/ul (missing) CALCIUM, IONIZED 2025-06-21 04: [facility] 1.20 m mol/l (missing) LYMPHOCYTES # (AUTO) 2025-06-21 04: [facility] 1.3 10 3/ul (missing) MAGNESIUM 2025-06-21 04: [facility] 1.8 mg/dl As of February 2023 testing method has changed, this may include reference ranges. HGB - HEMOGLOBIN 2025-06-21 04: [facility] 10.7 g /dl (missing) CHLORIDE 2025-06-21 04: [facility] 103 mmol/l As of February 2023 testing method has changed, this may include reference ranges. GLUCOSE 2025-06-21: [facility] 116 mg/dl As of February 2023 testing method has changed, this may include reference ranges. GFR - MDRD 2025-06-21: HiConversion 123 (luis peoples) The IDMS-traceable MDRD Study Equation has been [...] caring for patients older than 70. References: http://www.nkdep.n ih.gov/lab-evaluat ion/gfr/creatinine -stand ardization, last updated October 2011. BUN - BLOOD UREA NITROGEN 2025-06-21: [facility] 13 mg/dl As of Feb testing method has changed, this may include reference ranges. RED CELL DISTRIBUTION WIDTH 2025-06-21: [facility] 13.5 % (mi ssing) SODIUM 2025-06-21: [facility] 140 mmol/l (missing) PLT - PLATELET COUNT 2025-06-21 04: [facility] 277 10 3/ul (missing) MEAN CORPUSCULAR HEMOGLOBIN 2025-06-21 04: [facility] 29.3 pg (missing) PHOSPHORUS 2025-06-21 04:23 [facility] 3.3 mg/dl As of February 2023 testing method has changed, this may include reference ranges. RED BLOOD COUNT 2025-06-21 04:23 [employer] 3.65 10 6/ul (missing) POTASSIUM 2025-06-21 04:23 [employer] [facility] 3.8 mmol/l As of February 2023 testing method has changed, this may include reference ranges. MEAN CORPUSCULAR HGB CONC 2025-06-21 04:23 [facility] [employer] [facility] 32.3 g/dl (missing) HCT - HEMATOCRIT 2025-06-21 04:23 [facility] 33.1 % (missing) CARBON DIOXIDE - CO2 2025-06-21 04:23 [employer] [facility] 37 mmol/l As of February 2023 testing method has changed, this may include reference ranges. NEUTROPHILS # (AUTO) 2025-06-21 04:23 [facility] 4.0 10 3/ul (missing) WHITE BLOOD COUNT 2025-06-21 04:23 [facility] 6.7 x10 3/ul (missing) VBG PH 2025-06-21 04:23 [facility] 7.400 (missing ) (missing) CALCIUM 2025-06-21 04:23 [facility] 8.5 mg/dl As of February 2023 testing method has changed, this may include reference ranges. MEAN PLATELET VOLUME 2025-06-21 04:23 [facility] 9.3 fl (missing) MEAN CORPUSCULAR VOLUME 2025-06-21 04:23 [facility] 90.7 fl (missing) Result panel 30 ANION GAP 2025-06-22 04:39 [facility] -1.0 (missing ) (missing) NUCLEATED RED BLOOD CELLS AUTO 2025-06-22 04:39 [facility] 0.0 /100wbc (missing) BASOPHILS # (AUTO) 2025-06-22 04:39 [facility] 0.0 10 3/ul (missing) NRBC ABSOLUTE COUNT (AUTO) 2025-06-22 04:39 [facility] 0.00 x10 3/ul (missing) EOSINOPHILS # (AUTO) 2025-06-22 04:39 [facility] 0.3 10 3/ul (missing) CREATININE 2025-06-22 04:39 [facility] 0.5 mg/dl As of February 2023 testing method has changed, this may include reference ranges. MONOCYTES # (AUTO) 2025-06-22 04:39 [facility] 0.8 10 3/ul (missing) CALCIUM, IONIZED 2025-06-22 04:39 [facility] 1.23 m mol/l (missing) LYMPHOCYTES # (AUTO) 2025-06-22 04:39 [facility] 1.3 10 3/ul (missing) MAGNESIUM 2025-06-22 04:39 [facility] 1.7 mg/dl As of February 2023 testing method has changed, this may include reference ranges. CHLORIDE 2025-06-22 04:39 [facility] 101 mmol/l As of February 2023 testing method has changed, this may include reference ranges. GLUCOSE 2025-06-22 04:39 [facility] 104 mg/dl As of February 2023 testing method has changed, this may include reference ranges. GFR - MDRD 2025-06-22 04:39 [facility] 123 (in g) The IDMS-traceable MDRD Study Equation has been [...] caring for patients older than 70. References: http://www.nkdep.n ih.gov/lab-evaluat ion/gfr/creatinine -stand ardization, last updated October 2011. RED CELL DISTRIBUTION WIDTH 2025-06-22 04:39 [facility] 13.5 % (mi ssing) SODIUM 2025-06-22 04:39 [facility] 140 mmol/l (missing) PLT - PLATELET COUNT 2025-06-22 04:39 [facility] 264 10 3/ul (missing) MEAN CORPUSCULAR HEMOGLOBIN 2025-06-22 04:39 [facility] 27.9 pg (missing) RED BLOOD COUNT 2025-06-22 04:39 [facility] 3.37 10 6/ul (missing) PHOSPHORUS 2025-06-22 04:39 [facility] 3.6 mg/dl As of February 2023 testing method has changed, this may include reference ranges. NEUTROPHILS # (AUTO) 2025-06-22 04:39 [facility] 3.9 10 3/ul (missing) MEAN CORPUSCULAR HGB CONC 2025-06-22 04:39 [facility] 30.3 g/dl (missing) HCT - HEMATOCRIT 2025-06-22 04:39 [facility] 31.0 % (missing) POTASSIUM 2025-06-22 04:39 [facility] 4.0 mmol/l As of February 2023 testing method has changed, this may include reference ranges. CARBON DIOXIDE - CO2 2025-06-22 04:39 [facility] 40 mmol/l Critical result CO2 40 mmol/L called to and read back by KEILA Loza EQUIPMENT SCHEDULER at 22-Jun-2025 05:07 by michelle. As of February 2023 testing method has changed, this may include reference ranges. WHITE BLOOD COUNT 2025-06-22 04:39 [facility] 6.3 x10 3/ul (missing) VBG PH 2025-06-22 04:39 [facility] 7.412 (missing ) (missing) CALCIUM 2025-06-22 04:39 [facility] 8.5 mg/dl As of February 2023 testing method has changed, this may include reference ranges. BUN - BLOOD UREA NITROGEN 2025-06-22 04:39 [facility] 9 mg/dl As of Feb testing method has changed, this may include reference ranges. HGB - HEMOGLOBIN 2025-06-22 04:39 [facility] 9.4 g /dl (missing) MEAN PLATELET VOLUME 2025-06-22 04:39 [facility] 9.5 fl (missing) MEAN CORPUSCULAR VOLUME 2025-06-22 04:39 [facility] 92.0 fl (missing) Result panel 31 CREATININE 2025-06-23 04:44 [facility] 0.5 mg/dl As of February 2023 testing method has changed, this may include reference ranges. CALCIUM, IONIZED 2025-06-23 04:44 [facility] 1.17 m mol/l (missing) MAGNESIUM 2025-06-23 04:44 [facility] 1.8 mg/dl As of February 2023 testing method has changed, this may include reference ranges. HGB - HEMOGLOBIN 2025-06-23 04:44 [facility] 10.6 g /dl (missing) CHLORIDE 2025-06-23 04:44 [facility] 100 mmol/l As of February 2023 testing method has changed, this may include reference ranges. GLUCOSE 2025-06-23 04:44 [facility] 111 mg/dl As of February 2023 testing method has changed, this may include reference ranges. GFR - MDRD 2025-06-23 04:44 [facility] 123 (luis g) The IDMS-traceable MDRD Study Equation has been [...] caring for patients older than 70. References: http://www.nkdep.n ih.gov/lab-evaluat ion/gfr/creatinine -stand ardization, last updated October 2011. RED CELL DISTRIBUTION WIDTH 2025-06-23 04:44 [facility] 13.2 % (mi ssing) SODIUM 2025-06-23 04:44 [facility] 140 mmol/l (missing) ANION GAP 2025-06-23 04:44 [facility] 2.0 (missing ) (missing) PLT - PLATELET COUNT 2025-06-23 04:44 [facility] 271 10 3/ul (missing) MEAN CORPUSCULAR HEMOGLOBIN 2025-06-23 04:44 [facility] 28.6 pg (missing) PHOSPHORUS 2025-06-23 04:44 [facility] 3.2 mg/dl As of February 2023 testing method has changed, this may include reference ranges. RED BLOOD COUNT 2025-06-23 04:44 [facility] 3.70 10 6/ul (missing) MEAN CORPUSCULAR HGB CONC 2025-06-23 04:44 [facility] 31.5 g/dl (missing) HCT - HEMATOCRIT 2025-06-23 04:44 [facility] 33.7 % (missing) CARBON DIOXIDE - CO2 2025-06-23 04:44 [facility] 38 mmol/l As of February 2023 testing method has changed, this may include reference ranges. POTASSIUM 2025-06-23 04:44 [facility] 4.0 mmol/l As of February 2023 testing method has changed, this may include reference ranges. BUN - BLOOD UREA NITROGEN 2025-06-23 04:44 [facility] 7 mg/dl As of Feb testing method has changed, this may include reference ranges. VBG PH 2025-06-23 04:44 [facility] 7.478 (missing ) (missing) WHITE BLOOD COUNT 2025-06-23 04:44 [facility] 8.1 x10 3/ul (missing) CALCIUM 2025-06-23 04:44 [facility] 8.9 mg/dl As of February 2023 testing method has changed, this may include reference ranges. MEAN PLATELET VOLUME 2025-06-23 04:44 [facility] 9.5 fl (missing) MEAN CORPUSCULAR VOLUME 2025-06-23 04:44 [facility] 91.1 fl (missing) Result panel 32 CULTURE, BLOOD #1 2025-06-25 16:12 [facility] NG1D NO GROWTH AFTER 1 DAY (missing) (missing) CULTURE, BLOOD #2 2025-06-25 16:12 [facility] NG1D NO GROWTH AFTER 1 DAY (missing) (missing) CULTURE, BLOOD #1 2025-06-25 16:12 [facility] NG2D NO GROWTH AFTER 2 DAYS (missing) (missing) CULTURE, BLOOD #2 2025-06-25 16:12 [facility] NG2D NO GROWTH AFTER 2 DAYS (missing) (missing) CULTURE, BLOOD #1 2025-06-25 16:12 [facility] NG5D NO GROWTH AFTER 5 DAYS (missing) (missing) CULTURE, BLOOD #2 2025-06-25 16:12 [facility] NG5D NO GROWTH AFTER 5 DAYS (missing) (missing) Result panel 33 NUCLEATED RED BLOOD CELLS AUTO 2025-06-25 16:14 [facility] 0.0 /100wbc (missing) BASOPHILS # (AUTO) 2025-06-25 16:14 [facility] 0.0 10 3/ul (missing) NRBC ABSOLUTE COUNT (AUTO) 2025-06-25 16:14 [facility] 0.00 x10 3/ul (missing) EOSINOPHILS # (AUTO) 2025-06-25 16:14 [facility] 0.2 10 3/ul (missing) CREATININE 2025-06-25 16:14 [facility] 0.6 mg/dl As of February 2023 testing method has changed, this may include reference ranges. MONOCYTES # (AUTO) 2025-06-25 16:14 [facility] 0.8 10 3/ul (missing) LACTIC ACID, VENOUS 2025-06-25 16:14 [facility] 0.9 mmol/l Y As of February 2023 testing method has changed, this may include reference ranges. LYMPHOCYTES # (AUTO) 2025-06-25 16:14 [facility] 1.2 10 3/ul (missing) BILIRUBIN,TOTAL 2025-06-25 16:14 [facility] 1.2 mg/dl As of February 2023 testing method has changed, this may include reference ranges. ALBUMIN/GLOBULIN RATIO 2025-06-25 16:14 [facility] 1.6 (missing) (missing) BUN - BLOOD UREA NITROGEN 2025-06-25 16:14 [facility] 10 mg/dl As of February 2023 testing method has changed, this may include reference ranges. WHITE BLOOD COUNT 2025-06-25 16:14 [facility] 10.2 x10 3/ul (missing) HGB - HEMOGLOBIN 2025-06-25 16:14 [facility] 10.3 g/dl (missing) CHLORIDE 2025-06-25 16:14 [facility] 100 mmol/l As of February 2023 testing method has changed, this may include reference ranges. RED CELL DISTRIBUTION WIDTH 2025-06-25 16:14 [facility] 13.4 % (missing) GLUCOSE 2025-06-25 16:14 [facility] 137 mg/dl As of February 2023 testing method has changed, this may include reference ranges. SODIUM 2025-06-25 16:14 [facility] 140 mmol/l (missing) ALT ALANINE AMINOTRANSFERASE 2025-06-25 16:14 [facility] 17 iu/l As of February 2023 testing method has changed, this may include reference ranges. AST ASPARTATE AMINOTRANSFERASE 2025-06-25 16:14 [facility] 18 iu/l As of February 2023 testing method has changed, this may include reference ranges. ANION GAP 2025-06-25 16:14 [facility] 2.0 (missing) (missing) GLOBULIN 2025-06-25 16:14 [facility] 2.2 g/dl (missing) PLT - PLATELET COUNT 2025-06-25 16:14 [facility] 248 10 3/ul (missing) MEAN CORPUSCULAR HEMOGLOBIN 2025-06-25 16:14 [facility] 28.9 pg (missing) POTASSIUM 2025-06-25 16:14 [facility] 3.4 mmol/l As of February 2023 testing method has changed, this may include reference ranges. ALBUMIN 2025-06-25 16:14 [facility] 3.5 g/dl As of February 2023 testing method has changed, this may include reference ranges. RED BLOOD COUNT 2025-06-25 16:14 [facility] 3.56 10 6/ul (missing) HCT - HEMATOCRIT 2025-06-25 16:14 [facility] 32.0 % (missing) MEAN CORPUSCULAR HGB CONC 2025-06-25 16:14 [facility] 32.2 g/dl (missing) CARBON DIOXIDE - CO2 2025-06-25 16:14 [facility] 38 mmol/l As of February 2023 testing method has changed, this may include reference ranges. ALKALINE PHOSPHATASE 2025-06-25 16:14 [facility] 49 iu/l As of February 2023 testing method has changed, this may include reference ranges. TOTAL PROTEIN 2025-06-25 16:14 [facility] 5.7 g/dl As of February 2023 testing method has changed, this may include reference ranges. NEUTROPHILS # (AUTO) 2025-06-25 16:14 [facility] 8.0 10 3/ul (missing) MEAN CORPUSCULAR VOLUME 2025-06-25 16:14 [facility] 89.9 fl (missing) MEAN PLATELET VOLUME 2025-06-25 16:14 [facility] 9.2 fl (missing) CALCIUM 2025-06-25 16:14 [facility] 9.4 mg/dl As of February 2023 testing method has changed, this may include reference ranges. GFR - MDRD 2025-06-25 16:14 [facility] 99 (missing) The IDMS-traceable MDRD Study Equation has [...] ation/gfr/creatin ine-stand ardization, last updated October 2011. Result panel 34 NUCLEATED RED BLOOD CELLS AUTO 2025-06-29 12:44 [facility] 0.0 /100wbc (missing) BASOPHILS # (AUTO) 2025-06-29 12:44 [facility] 0.0 10 3/ul (missing) NRBC ABSOLUTE COUNT (AUTO) 2025-06-29 12:44 [facility] 0.00 x10 3/ul (missing) EOSINOPHILS # (AUTO) 2025-06-29 12:44 [facility] 0.1 10 3/ul (missing) CREATININE 2025-06-29 12:44 [facility] 0.5 mg/dl As of February 2023 testing method has changed, this may include reference ranges. MONOCYTES # (AUTO) 2025-06-29 12:44 [facility] 0.6 10 3/ul (missing) INR 2025-06-29 12:44 [facility] 1.0 (missing) Oral Anticoagulant Indication INR range Venous Thrombosis, P.E. 2.0 - 3.0 Mechanical Valve 2.5 - 3.5 LYMPHOCYTES # (AUTO) 2025-06-29 12:44 [facility] 1.1 10 3/ul (missing) ALBUMIN/GLOBULIN RATIO 2025-06-29 12:44 [facility] 1.4 (missing) (missing) BILIRUBIN,TOTAL 2025-06-29 12:44 [facility] 1.5 mg/dl As of February 2023 testing method has changed, this may include reference ranges. HGB - HEMOGLOBIN 2025-06-29 12:44 [facility] 10.8 g/dl (missing) GLUCOSE 2025-06-29 12:44 [facility] 103 mg/dl As of February 2023 testing method has changed, this may include reference ranges. PT - PROTHROMBIN TIME 2025-06-29 12:44 [facility] 11.4 secs N GFR - MDRD 2025-06-29 12:44 [facility] 123 (missing) The IDMS-traceable MDRD Study Equation has [...] caring for patients older than 70. References: http://www.nkdep.ni h.gov/lab-evaluatio n/gfr/creatinine-st and ardization, last updated October 2011. RED CELL DISTRIBUTION WIDTH 2025-06-29 12:44 [facility] 13.8 % (missing) ALT ALANINE AMINOTRANSFERASE 2025-06-29 12:44 [facility] 14 iu/l As of February 2023 testing method has changed, this may include reference ranges. SODIUM 2025-06-29 12:44 [facility] 140 mmol/l (missing) AST ASPARTATE AMINOTRANSFERASE 2025-06-29 12:44 [facility] 16 iu/l As of February 2023 testing method has changed, this may include reference ranges. LIPASE 2025-06-29 12:44 [facility] 19 u/l As of February 2023 testing method has changed, this may include reference ranges. GLOBULIN 2025-06-29 12:44 [facility] 2.6 g/dl (missing) PLT - PLATELET COUNT 2025-06-29 12:44 [facility] 10 3/ul (missing) PARTIAL THROMBOPLASTIN TIME 2025-06-29 12:44 [facility] 27.3 secs N MEAN CORPUSCULAR HEMOGLOBIN 2025-06-29 12:44 [facility] 28.6 pg (missing) POTASSIUM 2025-06-29 12:44 [facility] 3.4 mmol/l As of February 2023 testing method has changed, this may include reference ranges. ALBUMIN 2025-06-29 12:44 [facility] 3.7 g/dl As of February 2023 testing method has changed, this may include reference ranges. RED BLOOD COUNT 2025-06-29 12:44 [facility] 3.78 10 6/ul (missing) MEAN CORPUSCULAR HGB CONC 2025-06-29 12:44 [facility] 31.8 g/dl (missing) HCT - HEMATOCRIT 2025-06-29 12:44 [facility] 34.0 % (missing) CARBON DIOXIDE - CO2 2025-06-29 12:44 [facility] 39 mmol/l Critical result CO2 39 mmol/L called to and read back by manuela novak/kevin/ed at 29-Jun-2025 13:32 by adrián. As of February 2023 testing method has changed, this may include reference ranges. ANION GAP 2025-06-29 12:44 [facility] 4.0 (missing) (missing) NEUTROPHILS # (AUTO) 2025-06-29 12:44 [facility] 5.7 10 3/ul (missing) ALKALINE PHOSPHATASE 2025-06-29 12:44 [facility] 55 iu/l As of February 2023 testing method has changed, this may include reference ranges. TOTAL PROTEIN 2025-06-29 12:44 [facility] 6.3 g/dl As of February 2023 testing method has changed, this may include reference ranges. WHITE BLOOD COUNT 2025-06-29 12:44 [facility] 7.6 x10 3/ul (missing) MEAN CORPUSCULAR VOLUME 2025-06-29 12:44 [facility] 89.9 fl (missing) BUN - BLOOD UREA NITROGEN 2025-06-29 12:44 [facility] 9 mg/dl As of February 2023 testing method has changed, this may include reference ranges. CALCIUM 2025-06-29 12:44 [facility] 9.2 mg/dl As of February 2023 testing method has changed, this may include reference ranges. MEAN PLATELET VOLUME 2025-06-29 12:44 [facility] 9.5 fl (missing) CHLORIDE 2025-06-29 12:44 [facility] 97 mmol/l As of February 2023 testing method has changed, this may include reference ranges. Result panel 35 OCCULT BLOOD IN PAT. SINGLE 2025-06-29 13:47 [facility] 1ONE (missing) (missin g) OCCULT BLOOD IN PAT. SINGLE 2025-06-29 13:47 [facility] NEGREFERENCE RANGE: NEGATIVE (missing) (missing) OCCULT BLOOD IN PAT. SINGLE 2025-06-29 13:47 [facility] NNEGATIVE (missing) (missin g) OCCULT BLOOD IN PAT. SINGLE 2025-06-29 13:47 [facility] NO.CARDSNUMBER OF CARDS (missing) (missing) OCCULT BLOOD IN PAT. SINGLE 2025-06-29 13:47 [facility] OCCULTOCCULT BLOOD (missing) (missing) OCCULT BLOOD IN PAT. SINGLE 2025-06-29 13:47 [facility] [email or web address] (missing) (missin g) Social History date description facility
[2025-07-10] MEDS: hydrALAZINE INJ 20 MG/ML VIAL IVP STA (13:15)
[2025-07-10 13:17] LABS: ALT ALANINE AMINOTRANSFERASE 11 IU/L (10-60); AST ASPARTATE AMINOTRANSFERASE 18 IU/L (10-42); BUN - BLOOD UREA NITROGEN 19 mg/dL (6-20); CARBON DIOXIDE - CO2 > 45 mmol/L (21-32); CREATININE 0.4 mg/dL (0.6-1.3); GFR - MDRD 159 (>89)
--- NOTE | 2025-07-10 14:17 | XRAY Report ---
PROCEDURE: XR Chest 1V INDICATIONS: sob, cough TECHNIQUE: One view of the chest was acquired. COMPARISON: 06/25/2025 FINDINGS: Surgical changes and devices: None. Lungs and pleura: No pleural effusions or pneumothorax. Stable linear scarring in the right lung. No consolidation. Mediastinum: Mediastinal contours appear normal. Heart size is normal. Bones and chest wall: No suspicious bony lesions. Overlying soft tissues appear unremarkable. IMPRESSION: No acute cardiopulmonary process. Reviewed by: Varun Sung MD on 07/10/2025 2:13 PM PST Approved by: Varun Sung MD on 07/10/2025 2:13 PM PST Station ID: [id number]
--- OUTSIDE RECORDS SUMMARY | 2025-07-10 15:02 | EXTERNAL MEDICAL SUMMARY RPT | Continuity of Care Document ---
Author Organization [place] Address [address] [place] [id number] Phone Problems date description facility 2025-04-28 18:10 Chronic obstructive pulmonary disease with (acute) exacerbation [facility] 2025-04-28 18:10 Shortness of breath [facility] 2025-04-28 18:10 Other specified abnormal findin gs of blood chemistry [facility] 2025-04-29 07:44 Chronic obstructive pulmonary disease with (acute) exacerbation [facility] 2025-04-29 07:44 Shortness of breath [facility] 2025-04-29 07:44 Other specified abnormal findin gs of blood chemistry [facility] 2025-04-30 12:23 Chronic obstructive pulmonary disease with (acute) exacerbation [facility] 2025-04-30 12:23 Shortness of breath [facility] 2025-04-30 12:23 Chest pain, unspecified [facility] 2025-04-30 12:23 Other specified abnormal findin gs of blood [facility] 2025-05-11 10:08 Dyspnea, unspecified [facility] [...] He alth 2025-05-19 13:26 Other chest pain [facility] 2025-05-21 10:15 Essential (primary) hypertensio n [facility] 2025-05-21 12:53 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, implants and grafts, initial encounter [facility] 2025-06-12 16:16 Metabolic encephalopathy [facility] 2025-06-12 16:46 Metabolic encephalopathy [facility] 2025-06-12 17:04 Metabolic encephalopathy [facility] 2025-06-13 09:14 Other acidosis [facility] 2025-06-13 09:14 Metabolic encephalopathy [facility] 2025-06-13 09:14 Atherosclerotic hear t disease of [place] coronary artery without angina pectoris [facility] 09:14 Emphysema, unspecified [facility] 2025-06-13 09:14 Other retention of urine [facility] 2025-06-13 11:51 Other acidosis [facility] 2025-06-13 11:51 Metabolic encephalopathy [facility] 2025-06-13 11:51 Atherosclerotic hear t disease of [place] coronary artery without angina pectoris [facility] 2025-06-13 11:51 Emphysema, unspecified [facility] 2025-06-13 11:51 Other retention of urine [facility] 2025-06-13 17:05 Other acidosis [facility] 2025-06-13 17:05 Metabolic encephalopathy [facility] 2025-06-13 17:05 Atherosclerotic hear t disease of [place] coronary artery without angina pectoris [facility] 2025-06-13 17:05 Emphysema, unspecified [facility] 2025-06-13 17:05 Chronic obstructive pulmonary disease with (acute) exacerbation [facility] 2025-06-13 17:05 Diarrhea, unspecified [facility] 2025-06-13 17:05 Other retention of urine [facility] 2025-06-14 06:25 Other acidosis [facility] 2025-06-14 06:25 Metabolic encephalopathy [facility] 2025-06-14 06:25 Atherosclerotic hear t disease of [place] coronary artery without angina pectoris [facility] 2025-06-14 06:25 Emphysema, unspecified [facility] 2025-06-14 06:25 Chronic obstructive pulmonary disease with (acute) exacerbation [facility] 2025-06-14 06:25 Diarrhea, unspecified [facility] 2025-06-14 06:25 Other retention of urine [facility] 2025-06-15 06:06 Enterocolitis due to Clostridium difficile, not specified as recurrent [facility] 06:06 Other acidosis [facility] 2025-06-15 06:06 Mixed disorder of acid-base [facility] 2025-06-15 06:06 Metabolic encephalopathy [facility] [employer] [facility] 2025-06-15 06:06 Atherosclerotic hear t disease of [place] coronary artery without angina pectoris [facility] 2025-06-15 06:06 Emphysema, unspecified [facility] 2025-06-15 06:06 Chronic obstructive pulmonary disease with (acute) exacerbation [facility] 2025-06[facility]15 06:06 Diarrhea, unspecified [email or web address] [facility] 2025-06-15 06:06 Other retention of urine [facility] 2025-06-15 07:07 Enterocolitis due to Clostridium difficile, not specified as recurrent [facility] 2025-06-15 07:07 Other acidosis [facility] 2025-06-15 07:07 Mixed disorder of acid-base [facility] 2025-06-15 07:07 Metabolic encephalopathy [facility] 2025-06-15 07:07 Atherosclerotic hear t disease of [place] coronary artery without angina pectoris [facility] 2025-06-15 07:07 Emphysema, unspecified [facility] 2025-06-15 07:07 Chronic obstructive pulmonary disease with (acute) exacerbation [facility] 2025-06-15 07:07 Diarrhea, unspecified [employer] [facility] 2025-06-15 07:07 Other retention of urine [facility] 2025-06-15 07:45 Enterocolitis due to Clostridium difficile, not specified as recurrent [facility] 2025-06-15 07:45 Other acidosis [facility] 2025-06-15 07:45 Mixed disorder of acid-base [facility] 2025-06-15 07:45 Metabolic encephalopathy [facility] 2025-06-15 07:45 Atherosclerotic hear t disease of [place] coronary artery without angina pectoris [facility] 2025-06-15 07:45 Emphysema, unspecified [facility] 2025-06-15 07:45 Chronic obstructive pulmonary disease with (acute) exacerbation [facility] 2025-06-15 07:45 Diarrhea, unspecified idaniabey H [facility] 2025-06-15 07:45 Other retention of urine [email or web address] 2025-06-16 06:36 Enterocolitis due to Clostridium difficile, not specified as recurrent [facility] 2025-06-16 06:36 Other acidosis [facility] 2025-06-16 06:36 Mixed disorder of acid-base bal [facility] 2025-06-16 06:36 Metabolic encephalopathy [facility] 2025-06-16 06:36 Atherosclerotic hear t disease of [place] coronary artery without angina pectoris [facility] 2025-06-16 06:36 Emphysema, unspecified [facility] 2025-06-16 06:36 Chronic obstructive pulmonary disease with (acute) exacerbation [facility] 2025-06-16 06:36 Acute and chronic respiratory f ailure with hypoxia [facility] 2025-06-16 06:36 Acute and chronic re spiratory failure with hypercapnia [facility] 2025-06-16 06:36 Diarrhea, unspecified violet H [facility] 2025-06-16 06:36 Other retention of urine [email or web address] 2025-06-16 07:03 Enterocolitis due to Clostridium difficile, not specified as recurrent [facility] 2025-06-16 07:03 Other acidosis [facility] 2025-06-16 07:03 Mixed disorder of acid-base bal [facility] 2025-06-16 07:03 Metabolic encephalopathy [facility] 2025-06-16 07:03 Atherosclerotic hear t disease of [place] coronary artery without angina pectoris [facility] 2025-06-16 07:03 Emphysema, unspecified [facility] 2025-06-16 07:03 Chronic obstructive pulmonary disease with (acute) exacerbation [facility] 2025-06-16 07:03 Acute and chronic respiratory f ailure with hypoxia [facility] 2025-06-16 07:03 Acute and chronic re spiratory failure with hypercapnia [facility] 2025-06-16 07:03 Diarrhea, unspecified [facility] 2025-06-16 07:03 Other retention of urine [email or web address] 2025-06-17 06:22 Enterocolitis due to Clostridium difficile, not specified as recurrent [facility] 2025-06-17 06:22 Other disorders of phosphorus m etabolism [facility] 06:22 Hypomagnesemia [facility] 2025-06-17 06:22 Other acidosis [facility] 2025-06-17 06:22 Mixed disorder of acid-base bal ance [facility] 2025-06-17 06:22 Anxiety disorder, unspecified [facility] 2025-06-17 06:22 Metabolic encephalopathy [facility] 2025-06-17 06:22 Atherosclerotic hear t disease of [place] coronary artery without angina pectoris [facility] 2025-06-17 06:22 Emphysema, unspecified [facility] 2025-06-17 06:22 Chronic obstructive pulmonary disease with (acute) exacerbation [facility] 2025-06-17 06:22 Acute and chronic respiratory f ailure with hypoxia [facility] 2025-06-17 06:22 Acute and chronic re spiratory failure with hypercapnia [facility] 2025-06-17 06:22 Diarrhea, unspecified [facility] 2025-06-17 06:22 Other retention of urine [email or web address] 2025-06-17 13:52 Dysuria [facility] 2025-06-17 13:52 Abnormal weight loss [facility] 2025-06-17 13:52 Other symptoms and s igns concerning food and fluid intake [facility] 2025-06-18 06:54 Enterocolitis due to Clostridium difficile, not specified as recurrent [facility] 2025-06-18 06:54 Other disorders of phosphorus m etabolism [facility] 2025-06-18 06:54 Hypomagnesemia [facility] 2025-06-18 06:54 Other acidosis [facility] 2025-06-18 06:54 Mixed disorder of acid-base bal [facility] 2025-06-18 06:54 Anxiety disorder, unspecified [facility] 2025-06-18 06:54 Metabolic encephalopathy [facility] 2025-06-18 06:54 Atherosclerotic hear t disease of [place] coronary artery without angina pectoris [facility] 2025-06-18 06:54 Emphysema, unspecified [facility] 2025-06-18 06:54 Chronic obstructive pulmonary disease with (acute) exacerbation [facility] 2025-06-18 06:54 Acute and chronic respiratory f ailure with hypoxia [facility] 2025-06-18 06:54 Acute and chronic re spiratory failure with hypercapnia [facility] 2025-06-18 06:54 Diarrhea, unspecified [facility] 2025-06-18 06:54 Other retention of urine [facility] 2025-06-19 05:53 Enterocolitis due to Clostridium difficile, not specified as recurrent [facility] 2025-06-19 05:53 Unspecified severe protein-jeremy alexey malnutrition [facility] 2025-06-19 05:53 Other disorders of phosphorus m etabolism [facility] 2025-06-19 05:53 Hypomagnesemia [facility] 2025-06-19 05:53 Other acidosis [facility] 2025-06-19 05:53 Mixed disorder of acid-base [facility] 2025-06-19 05:53 Hypokalemia [facility] 2025-06-19 05:53 Anxiety disorder, unspecified [facility] 2025-06-19 05:53 Metabolic encephalopathy [facility] 2025-06-19 05:53 Atherosclerotic hear t disease of [place] coronary artery without angina pectoris [facility] 2025-06-19 05:53 Emphysema, unspecified [facility] 2025-06-19 05:53 Chronic obstructive pulmonary disease with (acute) exacerbation [facility] 2025-06-19 05:53 Acute and chronic respiratory f ailure with hypoxia [facility] 2025-06-19 05:53 Acute and chronic re spiratory failure with hypercapnia [facility] 2025-06-19 05:53 Diarrhea, unspecified [facility] 2025-06-19 05:53 Other retention of urine [facility] 2025-06-20 04:50 Enterocolitis due to Clostridium difficile, not specified as recurrent [facility] 2025-06-20 04:50 Unspecified severe protein-jeremy alexey malnutrition [facility] 2025-06-20 04:50 Other disorders of phosphorus m etabolism [facility] 2025-06-20 04:50 Hypomagnesemia [facility] 2025-06-20 04:50 Other acidosis [facility] 2025-06-20 04:50 Mixed disorder of acid-base bal [facility] 2025-06-20 04:50 Hypokalemia [facility] 2025-06-20 04:50 Anxiety disorder, unspecified [facility] 2025-06-20 04:50 Metabolic encephalopathy [facility] [employer] 2025-06-20 04:50 Atherosclerotic hear t disease of [place] coronary artery without angina pectoris [facility]25-06-20 04:50 Emphysema, unspecified [facility] 2025-06-20 04:50 Chronic obstructive pulmonary disease with (acute) exacerbation [facility] [employer] [facility] 2025-06-20 04:50 Acute and chronic respiratory f ailure with hypoxia [facility] 2025-06-20 04:50 Acute and chronic re spiratory failure with hypercapnia [facility] 2025-06-20 04:50 Diarrhea, unspecified [facility] 2025-06-20 04:50 Other retention of urine [email or web address] 2025-06-20 10:14 Enterocolitis due to Clostridium difficile, not specified as recurrent [facility] 2025-06-20 10:14 Unspecified severe protein-jeremy alexey malnutrition [facility] 2025-06-20 10:14 Other disorders of phosphorus m etabolism [facility] 2025-06-20 10:14 Hypomagnesemia [facility] 2025-06-20 10:14 Other acidosis [facility] [employer] 2025-06-20 10:14 Mixed disorder of acid-base bal ance [facility] 2025-06-20 10:14 Hypokalemia [facility] 2025-06-20 10:14 Anxiety disorder, unspecified [facility] 2025-06-20 10:14 Metabolic encephalopathy [facility] 2025-06-20 10:14 Atherosclerotic hear t disease of [place] coronary artery without angina pectoris [facility] 2025-06-20 10:14 Emphysema, unspecified [facility] 2025-06-20 10:14 Chronic obstructive pulmonary disease with (acute) exacerbation [facility] 2025-06-20 10:14 Acute and chronic respiratory f ailure with hypoxia [facility] 2025-06-20 10:14 Acute and chronic re spiratory failure with hypercapnia [facility] 2025-06-20 10:14 Diarrhea, unspecified [facility] 2025-06-20 10:14 Other retention of urine [facility] 2025-06-21 05:34 Enterocolitis due to Clostridium difficile, not specified as recurrent [facility] 2025-06-21 05:34 Unspecified severe protein-jeremy alexey malnutrition [facility] 2025-06-21 05:34 Other disorders of phosphorus m etabolism [facility] 2025-06-21 05:34 Hypomagnesemia [facility] 2025-06-21 05:34 Other acidosis [facility] 2025-06-21 05:34 Mixed disorder of acid-base bal [facility] 2025-06-21 05:34 Hypokalemia [facility] 2025-06-21 05:34 Anxiety disorder, unspecified [facility] 2025-06-21 05:34 Metabolic encephalopathy [facility] 2025-06-21 05:34 Atherosclerotic hear t disease of [place] coronary artery without angina pectoris [facility] 2025-06-21 05:34 Hypotension, unspecified [facility] 2025-06-21 05:34 Emphysema, unspecified [facility] 2025-06-21 05:34 Chronic obstructive pulmonary disease with (acute) exacerbation [facility] 2025-06-21 05:34 Acute and chronic respiratory f ailure with hypoxia [facility] 2025-06-21 05:34 Acute and chronic re spiratory failure with hypercapnia [facility] 2025-[facility]21 05:34 Diarrhea, unspecified [facility] 2025-06-21 05:34 Other retention of urine [facility] 2025-06-21 17:45 Enterocolitis due to Clostridium difficile, not specified as recurrent [facility] 2025-06-21 17:45 Unspecified severe protein-jeremy alexey malnutrition [facility] 2025-06-21 17:45 Other disorders of phosphorus m etabolism [facility] 2025-06-21 17:45 Hypomagnesemia [facility] 2025-06-21 17:45 Hypovolemia [facility] 2025-06-21 17:45 Other acidosis [facility] 2025-06-21 17:45 Mixed disorder of acid-base bal ance [facility] 2025-06-21 17:45 Hypokalemia [facility] 2025-06-21 17:45 Anxiety disorder, unspecified [facility]21 17:45 Metabolic encephalopathy [facility] 2025-06-21 17:45 Atherosclerotic hear t disease of [place] coronary artery without angina pectoris [facility] 2025-06-21 17:45 Hypotension, unspecified [facility] 2025-06-21 17:45 Emphysema, unspecified [facility] 2025-06-21 17:45 Chronic obstructive pulmonary disease with (acute) exacerbation [facility] 2025-06-21 17:45 Acute and chronic respiratory f ailure with hypoxia [facility] 2025-06-21 17:45 Acute and chronic re spiratory failure with hypercapnia [facility] 2025-06-21 17:45 Diarrhea, unspecified [facility] 2025-06-21 17:45 Other retention of urine [facility] 2025-06-21 18:04 Enterocolitis due to Clostridium difficile, not specified as recurrent [facility] 2025-06-21 18:04 Unspecified severe protein-jeremy alexey malnutrition [facility] 2025-06-21 18:04 Other disorders of phosphorus m etabolism [facility] 2025-06-21 18:04 Hypomagnesemia [facility] 2025-06-21 18:04 Hypovolemia [facility] 2025[facility]21 18:04 Other acidosis [facility] 2025-06-21 18:04 Mixed disorder of acid-base [facility] 2025-06-21 18:04 Hypokalemia [facility] 2025-06-21 18:04 Anxiety disorder, unspecified [facility] 2025-06-21 18:04 Metabolic encephalopathy [facility] 2025-06-21 18:04 Atherosclerotic hear t disease of [place] coronary artery without angina pectoris [facility] 2025-06-21 18:04 Hypotension, unspecified [facility] 2025-06-21 18:04 Emphysema, unspecified [facility] 2025-06-21 18:04 Chronic obstructive pulmonary disease with (acute) exacerbation [facility] 2025-06-21 18:04 Acute and chronic respiratory f ailure with hypoxia [facility] 2025-06-21 18:04 Acute and chronic re spiratory failure with hypercapnia [facility] 2025-06-21 18:04 Diarrhea, unspecified [facility] 2025-06-21 18:04 Other retention of urine [facility] 2025-06-22 06:26 Enterocolitis due to Clostridium difficile, not specified as recurrent [facility] 2025-06-22 06:26 Unspecified severe protein-jeremy alexey malnutrition [facility] 2025-06-22 06:26 Other disorders of phosphorus m etabolism [facility] 2025-06-22 06:26 Hypomagnesemia [facility] 2025-06-22 06:26 Hypovolemia [facility] 2025-06-22 06:26 Other acidosis [facility] 2025-06-22 06:26 Mixed disorder of acid-base bal [facility] 2025-06-22 06:26 Hypokalemia [facility] 2025-06-22 06:26 Anxiety disorder, unspecified [facility] 2025-06-22 06:26 Metabolic encephalopathy [facility] 2025-06-22 06:26 Atherosclerotic hear t disease of [place] coronary artery without angina pectoris [facility] 2025-06-22 06:26 Hypotension, unspecified [facility] 2025-06-22 06:26 Emphysema, unspecified [facility] 2025-06-22 06:26 Chronic obstructive pulmonary disease with (acute) exacerbation [facility] 2025-06-22 06:26 Acute and chronic respiratory f ailure with hypoxia [facility] 2025-06-22 06:26 Acute and chronic re spiratory failure with hypercapnia [facility] 2025-06-22 06:26 Diarrhea, unspecified [facility] 2025-06-22 06:26 Other retention of urine [facility] 2025-06-23 06:17 Enterocolitis due to Clostridium difficile, not specified as recurrent [facility] 2025-06-23 06:17 Unspecified severe protein-jeremy alexey malnutrition [facility] 2025-06-23 06:17 Other disorders of phosphorus m etabolism [facility] 2025-06-23 06:17 Hypomagnesemia [facility] 2025-06-23 06:17 Hypovolemia [facility] 2025-06-23 06:17 Other acidosis [facility] 2025-06-23 06:17 Mixed disorder of acid-base bal ance [facility] 2025-06-23 06:17 Hypokalemia [facility] 2025-06-23 06:17 Anxiety disorder, unspecified [facility] 06:17 Metabolic encephalopathy [facility] 2025-06-23 06:17 Atherosclerotic hear t disease of [place] coronary artery without angina pectoris [facility] 2025-06-23 06:17 Hypotension, unspecified [facility] 2025-06-23 06:17 Emphysema, unspecified [facility] 2025-06-23 06:17 Chronic obstructive pulmonary disease with (acute) exacerbation [facility] 2025-06-23 06:17 Acute and chronic respiratory f ailure with hypoxia [facility] 2025-06-23 06:17 Acute and chronic re spiratory failure with hypercapnia [facility] 2025-[facility]23 06:17 Diarrhea, unspecified [facility] 2025-06-23 06:17 Other retention of urine [facility] 2025-06-23 06:17 Other specified counseling [facility] [employer] 2025-06-23 11:59 Enterocolitis due to Clostridium difficile, not specified as recurrent [facility] 2025-06-23 11:59 Unspecified severe protein-jeremy alexey malnutrition [facility] 2025-06-23 11:59 Other disorders of phosphorus m etabolism [facility] 2025-06-23 11:59 Hypomagnesemia [facility] 2025-06-23 11:59 [facility] 11:59 Mixed disorder of acid-base bal ance [facility] 11:59 Hypokalemia [facility] 2025-[facility]-23 11:59 Anxiety disorder, unspecified [facility] 11:59 [facility]abolic [facility]opathy [facility]25[facility]23 11:59 Atherosclerotic hear t disease of [place] coronary artery without angina pectoris [facility] 2025[facility] 11:59 Hypotension, unspecified [facility] 2025-06-23 11:59 Emphysema, unspecified [facility]23 11:59 Chronic obstructive pulmonary disease with (acute) exacerbation [facility]25[facility]23 11:59 Acute and chronic respiratory f ailure with hypoxia [facility] 2025-[facility]23 11:59 Acute and chronic re spiratory failure with hypercapnia [facility] 2025-[facility]-23 11:59 Diarrhea, unspecified [facility] 11:59 Other [facility] of urine [facility] 2025-06-23 11:59 Other specified counseling [employer] 2025-06-23 12:07 Enterocolitis due to Clostridium difficile, not specified as recurrent [facility] 2025[facility]23 12:07 Unspecified severe protein-jeremy alexey malnutrition [facility] 2025-06-23 12:07 Other disorders of phosphorus m etabolism [facility]25[facility]23 12:07 Hypomagnesemia [facility] 2025-[facility]-23 12:07 [facility] 12:07 Other acidosis [facility] 2025-[facility]23 12:07 Mixed disorder of acid-base bal ance [facility] 2025-06-23 12:07 [facility]okalemia [facility]25[facility]23 12:07 Anxiety disorder, unspecified [facility]25[facility]23 12:07 Metabolic encephalopathy [facility] 2025-06-23 12:07 Atherosclerotic hear t disease of [place] coronary artery without angina pectoris [facility] 2025-[facility]23 12:07 Hypotension, unspecified [facility] 2025-06-23 12:07 Emphysema, unspecified [facility] 2025-[facility]-23 12:07 Chronic obstructive pulmonary disease with (acute) exacerbation [facility]25-[facility]23 12:07 Acute and chronic respiratory f ailure with hypoxia [facility] 2025-[facility]-23 12:07 Acute and chronic re spiratory failure with hypercapnia [facility] 2025-[facility]-23 12:07 Diarrhea, unspecified [facility] 2025-06-23 12:07 Other retention of urine [facility] 2025-06-23 12:07 Other specified counseling [facility] [employer] 2025-06-23 12:17 Enterocolitis due to Clostridium difficile, not specified as recurrent [facility] 2025-[facility]23 12:17 Unspecified severe protein-jeremy alexey malnutrition [facility] 2025-[facility]-23 12:17 Other disorders of phosphorus m etabolism [facility] 2025-06-23 12:17 Hypomagnesemia [facility] 2025-06-23 12:17 Hypovolemia [facility] 2025-[facility]-23 12:17 Other acidosis [facility] 2025-[facility]-23 12:17 Mixed disorder of acid-base bal [facility] 12:17 Hypokalemia [facility] 2025-06-23 12:17 Anxiety disorder, unspecified [facility] 2025-06-23 12:17 Metabolic encephalopathy [facility] 2025-06-23 12:17 Atherosclerotic hear t disease of [place] coronary artery without angina pectoris [facility] 2025-06-23 12:17 Hypotension, unspecified [facility] 2025-06-23 12:17 Emphysema, unspecified [facility] 2025-06-23 12:17 Chronic obstructive pulmonary disease with (acute) exacerbation [facility] 2025-06-23 12:17 Acute and chronic respiratory f ailure with hypoxia [facility] 2025-06-23 12:17 Acute and chronic re spiratory failure with hypercapnia [facility] 2025-06-23 12:17 Diarrhea, unspecified [facility] 2025-06-23 12:17 Other retention of urine [facility] 2025-06-23 12:17 Other specified counseling [employer] 2025-06-23 14:01 Enterocolitis due to Clostridium difficile, not specified as recurrent [facility] 2025-06-23 14:01 Unspecified severe protein-jeremy alexey malnutrition [facility] 2025-06-23 14:01 Other disorders of phosphorus m etabolism [facility] 2025-06-23 14:01 Hypomagnesemia [facility] 2025-06-23 14:01 Hypovolemia [facility] 2025-06-23 14:01 Other acidosis [facility] 2025-06-23 14:01 Mixed disorder of acid-base bal ance [facility] 2025-06-23 14:01 Hypokalemia [facility] 2025-06-23 14:01 Anxiety disorder, unspecified [facility] 2025-06-23 14:01 Metabolic encephalopathy [facility] 2025-06-23 14:01 Atherosclerotic hear t disease of [place] coronary artery without angina pectoris [facility] 2025-06-23 14:01 Hypotension, unspecified [facility] 2025-06-23 14:01 Emphysema, unspecified [facility] 2025-06-23 14:01 Chronic obstructive pulmonary disease with (acute) exacerbation [facility] 14:01 Acute and chronic respiratory f ailure with hypoxia [facility] 2025-[facility]23 14:01 Acute and chronic re spiratory failure with hypercapnia [facility] 2025-[facility]-23 14:01 Diarrhea, unspecified [facility] 2025-06-23 14:01 Other retention of urine [facility] 2025-06-23 14:01 Other specified counseling [employer] 2025-06-24 07:40 Enterocolitis due to Clostridium difficile, not specified as recurrent [facility] 2025-[facility]24 07:40 Unspecified severe protein-jeremy alexey malnutrition [facility] 2025-[facility]-24 07:40 Other disorders of phosphorus m etabolism [facility] 2025-06-24 07:40 Hypomagnesemia [facility] 2025-[facility]-24 07:40 Hypovolemia [facility] 2025-[facility]-24 07:40 Other acidosis [facility] 2025-[facility]-24 07:40 Mixed disorder of acid-base bal ance [facility] 2025-[facility]-24 07:40 Hypokalemia [facility] 2025-[facility]-24 07:40 Anxiety disorder, unspecified [facility]25[facility]-24 07:40 Metabolic encephalopathy [facility] 2025-06-24 07:40 Atherosclerotic hear t disease of [place] coronary artery without angina pectoris [facility] 2025-[facility]-24 07:40 Hypotension, unspecified [facility] 2025-06-24 07:40 Emphysema, unspecified [facility] 2025-06-24 07:40 Chronic obstructive pulmonary disease with (acute) exacerbation [facility]24 07:40 Acute and chronic respiratory f ailure with hypoxia [facility] 2025-[facility]-24 07:40 Acute and chronic re spiratory failure with hypercapnia [facility] 2025-[facility]-24 07:40 Lower abdominal pain, unspecifi ed [facility] 2025-[facility]-24 07:40 Diarrhea, unspecified [facility] 2025-06-24 07:40 Other retention of urine [facility] 2025-06-24 07:40 Retention of urine, unspecified [facility] 2025-06-24 07:40 Other specified counseling [facility] [employer] 2025-06-24 12:29 Enterocolitis due to Clostridium difficile, not specified as recurrent [facility] 2025-[facility]-24 12:29 Unspecified severe protein-jeremy alexey malnutrition [facility] [employer] 2025-06-24 12:29 Other disorders of phosphorus m etabolism [facility] [employer] 2025-06-24 12:29 Hypomagnesemia [facility] 12:29 Hypovolemia [facility] [employer] 2025-06-24 12:[address] [facility] [employer] 2025-06-24 12:29 Mixed disorder of acid-base bal ance [facility] 12:29 Hypokalemia [facility] 2025-[facility]-24 12:29 Anxiety disorder, unspecified [facility] 2025-06-24 12:29 Metabolic encephalopathy [facility] 2025-06-24 12:29 Atherosclerotic hear t disease of [place] coronary artery without angina pectoris [facility] 2025-[facility] 12:29 Hypotension, unspecified [facility] 2025-06-24 12:29 Emphysema, unspecified [facility] 2025-06-24 12:29 Chronic obstructive pulmonary disease with (acute) exacerbation [facility] 12:29 Acute and chronic respiratory f ailure with hypoxia [facility] 2025-[facility]-24 12:29 Acute and chronic re spiratory failure with hypercapnia [facility] 2025-[facility]-24 12:29 Lower abdominal pain, unspecifi ed [facility] 2025-[facility]-24 12:29 Diarrhea, unspecified [facility] 2025-06-24 12:29 Other retention of urine [facility] 2025-06-24 12:29 Retention of urine, unspecified [facility] 2025-06-24 12:29 Other specified counseling [facility] [employer] 2025-06-30 12:27 Diarrhea, unspecified [facility] 2025-06-30 12:27 Hematuria, unspecified [facility] 2025-07-01 12:16 Unspecified abdominal pain [facility] 2025-07-01 12:16 Weakness [facility] 2025-07-06 08:00 Weakness [facility] Results/Labs test date facility value unit notes Result panel 1 SARS-CoV-2 -RESP PCR PANEL 2025-04-28 14:55 [facility] NOT DETECTED (missing) A negative test result for this test indicates that SARS-CoV-2 RNA was not present in the specimen above the limit of detection. Testing performed on the [place] [employer] RP2.1 Panel, a multiplexed nucleic acid repiratory [...] INFLUENZA A- RESP PCR PANEL 2025-04-28 14:55 [facility] NOT DETECTED (missing) Influenza A including subtypes H1, H3, and H1-2009 not detected by the [employer] RP2.1 Panel, a multiplexed nucleic acid test intended for the simultaneous qualitative detection and differentiation of nucleic acids from multiple viral and bacterial respiratory organisms. B. PARAPERTUSSIS- RESP PCR CARLISLE 2025-04-28 14:55 [facility] NOT DETECTED (missing) Negative results for this organism do not preclude infection with this organism and may require additional laboratory testing (e.g., bacterial and viral culture, immunofluorescence, and radiography) when evaluating a patient with possible respiratory tract infection. B. PERTUSSIS- RESP PCR PANEL 2025-04-28 14:55 [facility] NOT DETECTED (missing) Negative results for this organism do not preclude infection with this organism and may require additional laboratory testing (e.g., bacterial and viral culture, immunofluorescence, and radiography) when evaluating a patient with possible respiratory tract infection. C. PNEUMONIAE- RESP PCR PANEL 2025-04-28 14:55 [facility] NOT DETECTED (missing) Negative results for [...] not be detected by nasopharyngeal specimen. CORONAVIRUS [id number] PCR 2025-04-28 14:55 [facility] NOT DETECTED (missing) Negative results in the setting ofa respiratory illness may be due to infection with pathogens not detected by this test, or lower respiratory tract infection that may not be detected by nasopharyngeal specimen. CORONAVIRUS [id number] PCR 2025-04-28 14:55 [facility] NOT DETECTED [...] 3/ul (missing) MONOCYTES # (AUTO) 2025-04-28 15:04 [facility] 0.3 10 3/ul (missing) CREATININE 2025-04-28 15:04 [facility] 0.6 mg/dl As of February 2023 testing method has changed, this may include reference ranges. LYMPHOCYTES # (AUTO) 2025-04-28 15:04 [facility] 0.9 10 3/ul (missing) BILIRUBIN,TOTAL 2025-04-28 15:04 [facility] 1.6 mg/dl As of February 2023 testing method has changed, this may include reference ranges. ALBUMIN/GLOBULIN RATIO 2025-04-28 15:04 [facility] 1.7 (missing) (missing) GFR - MDRD 2025-04-28 15:04 [facility] 100 (missing) The IDMS-traceable MDRD Study Equation [...] October 2011. ALT ALANINE AMINOTRANSFERASE 2025-04-28 15:04 [facility] 11 iu/l As of February 2023 testing method has changed, this may include reference ranges. HGB - HEMOGLOBIN 2025-04-28 15:04 [facility] [employer] 11.9 g/dl (missing) GLUCOSE 2025-04-28 15:04 [facility] 113 mg/dl As of February 2023 testing method has changed, this may include reference ranges. RED CELL DISTRIBUTION WIDTH 2025-04-28 15:04 [facility] 13.0 % (missing) SODIUM 2025-04-28 15:04 [facility] 139 mmol/l (missing) AST ASPARTATE AMINOTRANSFERASE 2025-04-28 15:04 [facility] 14 iu/l As of February 2023 testing method has changed, this may include reference ranges. VBG BASE EXCESS 2025-04-28 15:04 [facility] 15.0 mmol/l (missing) TROPONIN I HIGH SENSITIVITY 2025-04-28 15:04 [facility] 17.8 ng/l Critical result TNI[facility] 17.8 pg/mL called to and read back by ED/DEV Bowen RN at 28-Apr-2025 15:43 by _Chicisimoemanuel. A HIGH SENSITIVITY TROPONIN result of >= 14.9 ng/L for females is considered POSITIVE. A HIGH SENSITIVITY TROPONIN result of >= 19.8 ng/L for males is considered POSITIVE. A HIGH SENSITIVITY TROPONIN result of >= 17.9 ng/L for unspecified is considered POSITIVE. GLOBULIN 2025-04-28 15:04 [facility] 2.4 g/dl (missing) PLT - PLATELET COUNT 2025-04-28 15:04 [facility] 236 10 3/ul (missing) MEAN CORPUSCULAR HEMOGLOBIN 2025-04-28 15:04 [facility] 28.3 pg (missing) POTASSIUM 2025-04-28 15:04 [facility] 3.9 mmol/l As of February 2023 testing method has changed, this may include reference ranges. MEAN CORPUSCULAR HGB CONC 2025-04-28 15:04 [facility] 31.6 g/dl (missing) VBG PO2 2025-04-28 15:04 [facility] 33.8 mmhg (missing) CARBON DIOXIDE - CO2 2025-04-28 15:04 [facility] 37 mmol/l As of February 2023 testing method has changed, this may include reference ranges. HCT - HEMATOCRIT 2025-04-28 15:04 [facility] 37.7 % (missing) ANION GAP 2025-04-28 15:04 [facility] 4.0 (missing) (missing) ALBUMIN 2025-04-28 15:04 [facility] 4.1 g/dl As of February 2023 testing method has changed, this may include reference ranges. RED BLOOD COUNT 2025-04-28 15:04 [facility] 4.21 10 6/ul (missing) NEUTROPHILS # (AUTO) 2025-04-28 15:04 [facility] 4.8 10 3/ul (missing) VBG HCO3 2025-04-28 15:04 [facility] 40.2 mmol/l (missing) VBG TOTAL CO2 2025-04-28 15:04 [facility] 42.2 mmol/l (missing) VBG OXYGEN SATURATION 2025-04-28 15:04 [facility] 52.0 % (missing) WHITE BLOOD COUNT 2025-04-28 15:04 [facility] 6.2 x10 3/ul (missing) TOTAL PROTEIN 2025-04-28 15:04 [facility] 6.5 g/dl As of February 2023 testing method has changed, this may include reference ranges. ALKALINE PHOSPHATASE 2025-04-28 15:04 [facility] 63 iu/l As of February 2023 testing method has changed, this may include reference ranges. VBG PCO2 2025-04-28 15:04 [facility] 65.3 mmhg (missing) VBG PH 2025-04-28 15:04 [facility] 7.393 (missing) (missing) MEAN CORPUSCULAR VOLUME 2025-04-28 15:04 [facility] 89.5 fl (missing) BUN - BLOOD UREA NITROGEN 2025-04-28 15:04 [facility] 9 mg/dl As of February 2023 testing method has changed, this may include reference ranges. CALCIUM 2025-04-28 15:04 [facility] 9.8 mg/dl As of February 2023 testing method has changed, this may include reference ranges. MEAN PLATELET VOLUME 2025-04-28 15:04 [facility] 9.9 fl (missing) CHLORIDE 2025-04-28 15:04 [facility] 98 mmol/l As of February 2023 testing method has changed, this may include reference ranges. Result panel 3 TROPONIN I HIGH SENSITIVITY 2025-04-28 16:35 [facility] 20.8 ng/l Critical result TNIHS 20.8 pg/mL called to and read back by JANICE/BLU Bello RN at 28-Apr-2025 17:00 by _Chicisimoemanuel. A HIGH SENSITIVITY TROPONIN result of >= 14.9 ng/L for females is considered POSITIVE. A HIGH SENSITIVITY TROPONIN result of >= 19.8 ng/L for males is considered POSITIVE. A HIGH SENSITIVITY TROPONIN result of >= 17.9 ng/L for unspecified is considered POSITIVE. Result panel 4 NUCLEATED RED BLOOD CELLS AUTO 2025-05-17 00:46 [facility] 0.0 /100wbc (missing) BASOPHILS # (AUTO) 2025-05-17 00:46 [facility] 0.0 10 3/ul (missing) NRBC ABSOLUTE COUNT (AUTO) 2025-05-17 00:46 [facility] 0.00 x10 3/ul (missing) EOSINOPHILS # (AUTO) 2025-05-17 00:46 [facility] 0.2 10 3/ul (missing) MONOCYTES # (AUTO) 2025-05-17 00:46 [facility] 0.6 10 3/ul (missing) CREATININE 2025-05-17 00:46 [facility] 0.7 mg/dl As of February 2023 testing method has changed, this may include reference ranges. LYMPHOCYTES # (AUTO) 2025-05-17 00:46 [facility] 1.0 10 3/ul (missing) ALBUMIN/GLOBULIN RATIO 2025-05-17 00:46 [facility] 1.4 (missing) (missing) BILIRUBIN,TOTAL 2025-05-17 00:46 [facility] 1.6 mg/dl As of February 2023 testing method has changed, this may include reference ranges. LIPASE 2025-05-17 00:46 [facility] 10 u/l As of February 2023 testing method has changed, this may include reference ranges. ALT ALANINE AMINOTRANSFERASE 2025-05-17 00:46 [facility] 11 iu/l As of February 2023 testing method has changed, this may include reference ranges. HGB - HEMOGLOBIN 2025-05-17 00:46 [facility] 11.1 g/dl (missing) GLUCOSE 2025-05-17 00:46 [facility] [employer] 111 mg/dl As of February 2023 testing method has changed, this may include reference ranges. RED CELL DISTRIBUTION WIDTH 2025-05-17 00:46 [facility] 12.9 % (missing) BUN - BLOOD UREA NITROGEN 2025-05-17 00:46 [facility] [employer] 13 mg/dl As of February 2023 testing method has changed, this may include reference ranges. SODIUM 2025-05-17 00:46 [facility] 133 mmol/l (missing) AST ASPARTATE AMINOTRANSFERASE 2025-05-17 00:46 [facility] 15 iu/l As of February 2023 testing method has changed, this may include reference ranges. ANION GAP 2025-05-17 00:46 [facility] 2.0 (missing) (missing) GLOBULIN 2025-05-17 00:46 [facility] 2.6 g/dl (missing) TROPONIN I HIGH SENSITIVITY 2025-05-17 00:46 [email or web address] [facility] 21.1 ng/l Critical result TNI[facility] 21.1 [...] POSITIVE. PLT - PLATELET COUNT 2025-05-17 00:46 [facility] 214 10 3/ul (missing) MEAN CORPUSCULAR HEMOGLOBIN 2025-05-17 00:46 [facility] 28.4 pg (missing) ALBUMIN 2025-05-17 00:46 [facility] 3.7 g/dl As of February 2023 testing method has changed, this may include reference ranges. RED BLOOD COUNT 2025-05-17 00:46 [facility] 3.91 10 6/ul (missing) MEAN CORPUSCULAR HGB CONC 2025-05-17 00:46 [facility] 32.4 g/dl (missing) HCT - HEMATOCRIT 2025-05-17 00:46 [facility] 34.3 % (missing) CARBON DIOXIDE - CO2 2025-05-17 00:46 [facility] 38 mmol/l As of February 2023 testing method has changed, this may include reference ranges. POTASSIUM 2025-05-17 00:46 [facility] 4.1 mmol/l As of February 2023 testing method has changed, this may include reference ranges. NEUTROPHILS # (AUTO) 2025-05-17 00:46 [facility] 4.6 10 3/ul (missing) ALKALINE PHOSPHATASE 2025-05-17 00:46 [facility] 58 iu/l As of February 2023 testing method has changed, this may include reference ranges. TOTAL PROTEIN 2025-05-17 00:46 [facility] 6.3 g/dl As of February 2023 testing method has changed, this may include reference ranges. WHITE BLOOD COUNT 2025-05-17 00:46 [facility] 6.4 x10 3/ul (missing) GFR - MDRD 2025-05-17 00:46 [facility] 83 (missing) The IDMS-traceable MDRD Study Equation [...] October 2011. MEAN CORPUSCULAR VOLUME 2025-05-17 00:46 [facility] 87.7 fl (missing) MEAN PLATELET VOLUME 2025-05-17 00:46 [facility] 9.4 fl (missing) CALCIUM 2025-05-17 00:46 [facility] 9.6 mg/dl As of February 2023 testing method has changed, this may include reference ranges. CHLORIDE 2025-05-17 00:46 [facility] 93 mmol/l As of February 2023 testing method has changed, this may include reference ranges. Result panel 5 TROPONIN I HIGH SENSITIVITY 2025-05-17 03:27 [facility] 25.4 ng/l Critical result TNI[facility] 25.4 pg/mL [...] panel 7 THYROID STIMULATING HORMONE 2025-06-12 05:00 [facility] [employer] 0.17 uiu/ml (missing) FREE T4 (FREE THYROXINE) 2025-06-12 05:00 [facility] [employer] 1.08 ng/dl Biotin at >10 ng/mL concentration may cause significant interference. Result panel 8 WBC,URINE 2025-06-12 10:25 [facility] 0-3 /hpf (missing) RBC,URINE 2025-06-12 10:25 [facility] 0-5 /hpf (missing) UROBILINOGEN,URIN E 2025-06-12 10:25 [facility] [employer] 0.2 (NORMAL) e.u./dl (missing) SPECIFIC GRAVITY,URINE 2025-06-12 10:25 [facility] 1.010 (missing) (missing) KETONES,URINE (UA) 2025-06-12 10:25 [facility] 40 mg/dl (missing) PH,URINE 2025-06-12 10:25 [facility] 7.0 ph (missing) CLARITY,URINE 2025-06-12 10:25 [facility] CLEAR (missing) (missing) URINE MICROSCOPIC INDICATED? 2025-06-12 10:25 [facility] INDICATED (missing) (missing) LEUKOCYTE ESTERASE, URINE 2025-06-12 10:25 [facility] NEGATIVE (missing) (missing) NITRITE,URINE 2025-06-12 10:25 [facility] NEGATIVE (missing) (missing) BILIRUBIN,URINE 2025-06-12 10:25 [facility] NEGATIVE (missing) Bilirubin can be influenced by color interference. Please correlate positive results with clinical presentation GLUCOSE, URINE (UA) 2025-06-12 10:25 [facility] NEGATIVE mg/dl (missing) UR CULTURE IF IND 2025-06-12 10:25 [facility] NOT INDICATED (missing) (missing) SQUAMOUS EPITHELIAL CELL,UR 2025-06-12 10:25 [facility] RARE Squamous (missing) (missing) BACTERIA,URINE 2025-06-12 10:25 [facility] Rare /hpf (missing) AMORPHOUS SEDIMENT,UR 2025-06-12 10:25 [facility] Rare /lpf (missing) PROTEIN,URINE 2025-06-12 10:25 [facility] TRACE mg/dl (missing) OCCULT BLOOD,URINE 2025-06-12 10:25 [facility] TRACE-INTACT (missing) (missing) COLOR,URINE 2025-06-12 10:25 [facility] YELLOW (missing) URINE CATHETERIZED Result panel 9 NUCLEATED RED BLOOD CELLS AUTO 2025-06-12 11:30 [facility] 0.0 /100wbc (missing) BASOPHILS # (AUTO) 2025-06-12 11:30 [facility] 0.0 10 3/ul (missing) EOSINOPHILS # (AUTO) 2025-06-12 11:30 [facility] 0.0 10 3/ul (missing) NRBC ABSOLUTE COUNT (AUTO) 2025-06-12 11:30 [facility] 0.00 x10 3/ul (missing) MONOCYTES # (AUTO) 2025-06-12 11:30 [facility] 0.3 10 3/ul (missing) LYMPHOCYTES # (AUTO) 2025-06-12 11:30 [facility] 0.5 10 3/ul (missing) CREATININE 2025-06-12 11:30 [facility] 0.5 mg/dl As of February 2023 testing method has changed, this may include reference ranges. ALBUMIN/GLOBULIN RATIO 2025-06-12 11:30 [facility] 1.4 (missing) (missing) MAGNESIUM 2025-06-12 11:30 [facility] 1.4 mg/dl As of February 2023 testing method has changed, this may include reference ranges. GLUCOSE 2025-06-12 11:30 [facility] [employer] 102 mg/dl As of February 2023 testing method has changed, this may include reference ranges. ALT ALANINE AMINOTRANSFERASE 2025-06-12 11:30 [facility] [employer] 11 iu/l As of February 2023 testing method has changed, this may include reference ranges. HGB - HEMOGLOBIN 2025-06-12 11:30 [employer] [employer] 12.0 g/dl (missing) RED CELL DISTRIBUTION WIDTH 2025-06-12 11:30 [facility] 12.8 % (missing) GFR - MDRD 2025-06-12 11:30 [facility] 123 (missing) The IDMS-traceable MDRD Study [...] last updated October 2011. SODIUM 2025-06-12 11:30 [facility] 129 mmol/l (missing) BUN - BLOOD UREA NITROGEN 2025-06-12 11:30 [facility] [employer] 17 mg/dl As of February 2023 testing method has changed, this may include reference ranges. AST ASPARTATE AMINOTRANSFERASE 2025-06-12 11:30 [facility] 18 iu/l As of February 2023 testing method has changed, this may include reference ranges. BILIRUBIN,TOTAL 2025-06-12 11:30 [facility] 2.1 mg/dl As of February 2023 testing method has changed, this may include reference ranges. GLOBULIN 2025-06-12 11:30 [facility] [employer] 2.6 g/dl (missing) PLT - PLATELET COUNT 2025-06-12 11:30 [facility] [employer] 267 10 3/ul (missing) MEAN CORPUSCULAR HEMOGLOBIN 2025-06-12 11:30 [facility] 28.0 pg (missing) POTASSIUM 2025-06-12 11:30 [facility] [employer] 3.4 mmol/l As of February 2023 testing method has changed, this may include reference ranges. ALBUMIN 2025-06-12 11:30 [facility] [employer] 3.7 g/dl As of February 2023 testing method has changed, this may include reference ranges. MEAN CORPUSCULAR HGB CONC 2025-06-12 11:30 [facility] 32.9 g/dl (missing) HCT - HEMATOCRIT 2025-06-12 11:30 [facility] [employer] 36.5 % (missing) NEUTROPHILS # (AUTO) 2025-06-12 11:30 [facility] 4.1 10 3/ul (missing) RED BLOOD COUNT 2025-06-12 11:30 [facility] 4.28 10 6/ul (missing) CARBON DIOXIDE - CO2 2025-06-12 11:30 [email or web address] 40 mmol/l Critical result CO2 40 mmol/L called to and read back by BLU Nelson RN/ED at 12-Jun-2025 11:49 by Jacquelyn. As of February 2023 testing method has changed, this may include reference ranges. ANION GAP 2025-06-12 11:30 [facility] 5.0 (missing) (missing) WHITE BLOOD COUNT 2025-06-12 11:30 [facility] 5.0 x10 3/ul (missing) TOTAL PROTEIN 2025-06-12 11:30 [facility] 6.3 g/dl As of February 2023 testing method has changed, this may include reference ranges. ALKALINE PHOSPHATASE 2025-06-12 11:30 [facility] 62 iu/l As of February 2023 testing method has changed, this may include reference ranges. CHLORIDE 2025-06-12 11:30 [facility] 84 mmol/l As of February 2023 testing method has changed, this may include reference ranges. MEAN CORPUSCULAR VOLUME 2025-06-12 11:30 [facility] 85.3 fl (missing) MEAN PLATELET VOLUME 2025-06-12 11:30 [facility] 9.4 fl (missing) CALCIUM 2025-06-12 11:30 [facility] 9.4 mg/dl As of February 2023 testing method has changed, this may include reference ranges. Result panel 10 [facility] BASE EXCESS 2025-06-12 14:25 [facility] 16.9 mm ol/l (missing) VBG PO2 2025-06-12 14:25 [facility] 38.7 mmhg (missing) VBG HCO3 2025-06-12 14: [facility] 42.0 mmol/l (missing) VBG TOTAL CO2 2025-06-12 14:25 [facility] 44.1 mmol /l (missing) V[facility] OXYGEN SATURATION 2025-06-12 14:25 [facility] 58.0 % (missing) VBG PCO2 2025-06-12 14:25 [...] 23:50 [facility] Not Detected (missing) (missing) [id number] E COLI 2025-06-12 23:50 [facility] Not Detected (missing) (missing) SHIGELLA/ENTEROINVASIV E E COLI 2025-06-12 23:50 [facility] Not Detected (missing) (missing) VIBRIO CHOLERAE 2025-06-12 23:50 [facility] Not Detected (missing) (missing) VIBRIO 2025-06-12 23:50 [facility] Not Detected (missing) (missing) YERSINIA ENTEROCOLITICA 2025-06-12 23:50 [facility] Not Detected (missing) (missing) SAPOVIRUS 2025-06-12 23:50 [facility] Not Detected (missing) Performed at: [address], [address], [place], [place] [id number] [place] Boss: Chadwick Portillo MD, Phone: [phone] E COLI O157 2025-06-12 23:50 [facility] [...] 24hours. Result panel 14 CREATININE 2025-06-13 05:30 [facility] 0.5 mg/dl As of February 2023 testing method has changed, this may include reference ranges. MAGNESIUM 2025-06-13 05:30 [facility] 1.9 mg/dl As of February 2023 testing method has changed, this may include reference ranges. HGB - HEMOGLOBIN 2025-06-13 05:30 [facility] 12.1 g /dl (missing) RED CELL DISTRIBUTION WIDTH 2025-06-13 05:30 [facility] 12.8 % (mi ssing) GFR - MDRD 2025-06-13 05:30 [facility] 123 (luis peoples) The IDMS-traceable MDRD Study [...] last updated October 2011. SODIUM 2025-06-13 05:30 [facility] 132 mmol/l (missing) GLUCOSE 2025-06-13 05:30 [facility] 133 mg/dl As of February 2023 testing method has changed, this may include reference ranges. BUN - BLOOD UREA NITROGEN 2025-06-13 05:30 [facility] 19 mg/dl As of Feb testing method has changed, this may include reference ranges. WHITE BLOOD COUNT 2025-06-13 05:30 [facility] 2.7 x10 3/ul (missing) MEAN CORPUSCULAR HEMOGLOBIN 2025-06-13 05:30 [facility] 28.3 pg (missing) PLT - PLATELET COUNT 2025-06-13 05:30 [facility] 283 10 3/ul (missing) POTASSIUM 2025-06-13 05:30 [facility] 3.3 mmol/l As of February 2023 testing method has changed, this may include reference ranges. MEAN CORPUSCULAR HGB CONC 2025-06-13 05:30 [facility] 33.6 g/dl (missing) HCT - HEMATOCRIT 2025-06-13 05:30 [facility] 36.0 % (missing) RED BLOOD COUNT 2025-06-13 05:30 [facility] 4.28 10 6/ul (missing) CARBON DIOXIDE - CO2 2025-06-13 05:30 [facility] 40 mmol/l Critical result CO2 40 mmol/L called to and read back by TWYLA Cano(KEVIN MS) at 13-Jun-2025 06:16 by damaris. As of February 2023 testing method has changed, this may include reference ranges. ANION GAP 2025-06-13 05:30 [facility] 6.0 (missing ) (missing) MEAN CORPUSCULAR VOLUME 2025-06-13 05:30 [email or web address] 84.1 fl (missing) CHLORIDE 2025-06-13 05:30 [facility] 86 mmol/l As of February 2023 testing method has changed, this may include reference ranges. CALCIUM 2025-06-13 05:30 [email or web address] 9.2 mg/dl As of February 2023 testing method has changed, this may include reference ranges. MEAN PLATELET VOLUME 2025-06-13 05:30 [facility] [employer] 9.5 fl (missing) Result panel 15 ABG ANALYSIS TIME 2025-06-13 10:45 [facility] 1055 (missing) (missing) ABG O2 LPM 2025-06-13 10:45 [facility] 2.00 lpm (missing) ABG BASE EXCESS 2025-06-13 10:45 [facility] 26.2 mmol/l (missing) ABG HCO3 2025-06-13 10:45 [facility] 48.3 mmol/l (missing) ABG TCO2 2025-06-13 10:45 [facility] 49.9 mmol/l Called to HAILEE Calixto RN/MS by Natalie Quintero MLS, ASCP at 1057 06/13/25. Read back(Y/N)? Y ABG PCO2 2025-06-13 10:45 [facility] 51 mmhg (missing) ABG PH 2025-06-13 10:45 [facility] 7.58 (missing) (missing) ABG PO2 2025-06-13 10:45 [facility] 82 mmhg (missing) ABG OXYGEN SATURATION 2025-06-13 10:45 [facility] 98 % (missing) ABG O2 DEVICE 2025-06-13 10:45 [facility] NASAL CANNULA (missing) (missing) RAVINDER TEST 2025-06-13 10:45 [facility] POSITIVE (missing) Collateral Circulation Present, consistent with a Positive Allens Test. Information or result provided by Respiratory Therapy. ABG SITE OF DRAW 2025-06-13 10:45 [facility] [employer] RIGHT RADIAL (missing) (missing) Result panel 16 MRSA PCR,CCU ADMIT 2025-06-13 12:30 [facility] [employer] NEGATIVE (missing) (missing) Result panel 17 BILIRUBIN,DIRECT 2025-06-14 04:44 [facility] 0.13 mg/dl As of February 2023 testing method has changed, this may include reference ranges. CREATININE 2025-06-14 04:44 [facility] 0.8 mg/dl As of February 2023 testing method has changed, this may include reference ranges. CALCIUM, IONIZED 2025-06-14 04:44 [facility] 1.23 mmol/l (missing) BILIRUBIN,INDIRECT 2025-06-14 04:44 [facility] 1.4 mg/dl (missing) ALBUMIN/GLOBULIN RATIO 2025-06-14 04:44 [facility] 1.5 (missing) (missing) BILIRUBIN,TOTAL 2025-06-14 04:44 [facility] 1.5 mg/dl As of February 2023 testing method has changed, this may include reference ranges. ALT ALANINE AMINOTRANSFERASE 2025-06-14 04:44 [facility] 10 iu/l As of February 2023 testing method has changed, this may include reference ranges. HGB - HEMOGLOBIN 2025-06-14 04:44 [facility] 12.5 g/dl (missing) RED CELL DISTRIBUTION WIDTH 2025-06-14 04:44 [facility] 13.0 % (missing) SODIUM 2025-06-14 04:44 [facility] 132 mmol/l (missing) GLUCOSE 2025-06-14 04:44 [facility] 150 mg/dl As of February 2023 testing method has changed, this may include reference ranges. AST ASPARTATE AMINOTRANSFERASE 2025-06-14 04:44 [facility] 18 iu/l As of February 2023 testing method has changed, this may include reference ranges. MAGNESIUM 2025-06-14 04:44 [email or web address] 2.0 mg/dl As of February 2023 testing method has changed, this may include reference ranges. GLOBULIN 2025-06-14 04:44 [facility] 2.4 g/dl (missing) VBG BASE EXCESS 2025-06-14 04:44 [facility] 20.7 mmol/l (missing) BUN - BLOOD UREA NITROGEN 2025-06-14 04:44 [facility] [employer] 28 mg/dl As of February 2023 testing method has changed, this may include reference ranges. VBG PO2 2025-06-14 04:44 [facility] 28.2 mmhg (missing) MEAN CORPUSCULAR HEMOGLOBIN 2025-06-14 04:44 [email or web address] 29.1 pg (missing) ANION GAP 2025-06-14 04:44 [facility] 3.0 (missing) (missing) ALBUMIN 2025-06-14 04:44 [facility] 3.7 g/dl As of February 2023 testing method has changed, this may include reference ranges. MEAN CORPUSCULAR HGB CONC 2025-06-14 04:44 [facility] 34.4 g/dl (missing) PLT - PLATELET COUNT 2025-06-14 04:44 [facility] 358 10 3/ul (missing) HCT - HEMATOCRIT 2025-06-14 04:44 [facility] 36.3 % (missing) VBG OXYGEN SATURATION 2025-06-14 04:44 [email or web address] 38.0 % (missing) PHOSPHORUS 2025-06-14 04:44 [facility] [employer] 4.1 mg/dl As of February 2023 testing method has changed, this may include reference ranges. RED BLOOD COUNT 2025-06-14 04:44 [facility] 4.30 10 6/ul (missing) POTASSIUM 2025-06-14 04:44 [facility] 4.4 mmol/l As of February 2023 testing method has changed, this may include reference ranges. CARBON DIOXIDE - CO2 2025-06-14 04:44 [facility] 41 mmol/l Critical result CO2 41 mmol/L called to and read back by Keila Loza RN ICU at 14-Jun-2025 05:15 by kaia. As of February 2023 testing method has changed, this may include reference ranges. VBG HCO3 2025-06-14 04:44 [facility] 45.2 mmol/l (missing) VBG TOTAL CO2 2025-06-14 04:44 [facility] 47.3 mmol/l (missing) ALKALINE PHOSPHATASE 2025-06-14 04:44 [facility] 57 iu/l As of February 2023 testing method has changed, this may include reference ranges. TOTAL PROTEIN 2025-06-14 04:44 [facility] 6.1 g/dl As of February 2023 testing method has changed, this may include reference ranges. VBG PCO2 2025-06-14 04:44 [facility] 67.4 mmhg (missing) VBG PH 2025-06-14 04:44 [facility] 7.426 (missing) (missing) VBG PH 2025-06-14 04:44 [facility] 7.431 (missing) (missing) WHITE BLOOD COUNT 2025-06-14 04:44 [facility] 7.8 x10 3/ul (missing) GFR - MDRD 2025-06-14 04:44 [facility] 71 (missing) The IDMS-traceable MDRD Study Equation [...] October 2011. MEAN CORPUSCULAR VOLUME 2025-06-14 04:44 [facility] 84.4 fl (missing) CHLORIDE 2025-06-14 04:44 [facility] 88 mmol/l As of February 2023 testing method has changed, this may include reference ranges. MEAN PLATELET VOLUME 2025-06-14 04:44 [facility] 9.5 fl (missing) CALCIUM 2025-06-14 04:44 [facility] 9.6 mg/dl As of February 2023 testing method has changed, this may include reference ranges. Result panel 18 CREATININE 2025-06-15 05:27 [facility] 0.7 mg/dl As of February 2023 testing method has changed, this may include reference ranges. CALCIUM, IONIZED 2025-06-15 05:27 [facility] 1.23 m mol/l (missing) MAGNESIUM 2025-06-15 05:27 [facility] 1.9 mg/dl As of February 2023 testing method has changed, this may include reference ranges. WHITE BLOOD COUNT 2025-06-15 05:27 [facility] 10.3 x10 3/ul (missing) HGB - HEMOGLOBIN 2025-06-15 05:27 [facility] 11.0 g /dl (missing) RED CELL DISTRIBUTION WIDTH 2025-06-15 05:27 [facility] 13.2 % (mi ssing) SODIUM 2025-06-15 05:27 [facility] 134 mmol/l (missing) VBG BASE EXCESS 2025-06-15 05:27 [facility] 19.1 mm ol/l (missing) PHOSPHORUS 2025-06-15 05:27 [facility] 2.6 mg/dl As of February 2023 testing method has changed, this may include reference ranges. BUN - BLOOD UREA NITROGEN 2025-06-15 05:27 [facility] 24 mg/dl As of Feb testing method has changed, this may include reference ranges. MEAN CORPUSCULAR HEMOGLOBIN 2025-06-15 05:27 [facility] 28.7 pg (missing) RED BLOOD COUNT 2025-06-15 05:27 [facility] 3.83 10 6/ul (missing) PLT - PLATELET COUNT 2025-06-15 05:27 [facility] 302 10 3/ul (missing) HCT - HEMATOCRIT 2025-06-15 05:27 [facility] 32.9 % (missing) MEAN CORPUSCULAR HGB CONC 2025-06-15 05:27 [facility] 33.4 g/dl (missing) CARBON DIOXIDE - CO2 2025-06-15 05:27 [facility] 37 mmol/l As of February 2023 testing method has changed, this may include reference ranges. VBG PO2 2025-06-15 05:27 [facility] 37.5 mmhg (missing) ANION GAP 2025-06-15 05:27 [facility] 4.0 (missing ) (missing) POTASSIUM 2025-06-15 05:27 [facility] 4.3 mmol/l As of February 2023 testing method has changed, this may include reference ranges. VBG HCO3 2025-06-15 05:27 [facility] 43.1 mmol/l (missing) VBG TOTAL CO2 2025-06-15 05:27 [facility] 44.9 mmol /l (missing) VBG PCO2 2025-06-15 05:27 [facility] 59.3 mmhg (missing) VBG OXYGEN SATURATION 2025-06-15 05:27 [facility] 62.0 % (missing) VBG PH 2025-06-15 05:27 [facility] 7.441 (missing ) (missing) VBG PH 2025-06-15 05:27 [facility] 7.465 (missing ) (missing) GFR - MDRD 2025-06-15 05:27 [facility] 83 (missin g) The IDMS-traceable MDRD Study [...] October 2011. MEAN CORPUSCULAR VOLUME 2025-06-15 05:27 [facility] 85.9 fl (missing) CALCIUM 2025-06-15 05:27 [facility] 9.3 mg/dl As of February 2023 testing method has changed, this may include reference ranges. MEAN PLATELET VOLUME 2025-06-15 05:27 [facility] 9.4 fl (missing) GLUCOSE 2025-06-15 05:27 [facility] 90 mg/dl As of February 2023 testing method has changed, this may include reference ranges. CHLORIDE 2025-06-15 05:27 [facility] 93 mmol/l As of February 2023 testing method has changed, this may include reference ranges. Result panel 19 ABG ANALYSIS TIME 2025-06-15 13:20 [facility] 1332 (missing) (missing) ABG BASE EXCESS 2025-06-15 13:20 [facility] 14.2 mmol/l (missing) ABG O2 LPM 2025-06-15 13:20 [facility] 2.00 lpm (missing) ABG HCO3 2025-06-15 13:20 [facility] 38.2 mmol/l (missing) ABG TCO2 2025-06-15 13:20 [facility] 39.8 mmol/l Called to MELLY Peoples/KEVIN/ICU by Tate Cronin M.T.([facility]) at 1333 06/15/25. Read back(Y/N)? Y ABG PCO2 2025-06-15 13:20 [facility] 53 mmhg (missing) ABG PH 2025-06-15 13:20 [facility] 7.46 (missing) (missing) ABG PO2 2025-06-15 13:20 [facility] 71 mmhg (missing) ABG OXYGEN SATURATION 2025-06-15 13:20 [facility] 96 % (missing) ABG O2 DEVICE 2025-06-15 13:20 [facility] NASAL CANNULA (missing) (missing) RAVINDER TEST 2025-06-15 13:20 [facility] NOT APPLICABLE (missing) Information or result provided by Respiratory Therapy. ABG SITE OF DRAW 2025-06-15 13:20 [facility] RIGHT BRACHIAL (missing) (missing) Result panel 20 CREATININE 2025-06-16 04:34 [facility] 0.5 mg/dl As of February 2023 testing method has changed, this may include reference ranges. CALCIUM, IONIZED 2025-06-16 04:34 [facility] 1.21 m mol/l (missing) MAGNESIUM 2025-06-16 04:34 [facility] 1.7 mg/dl As of February 2023 testing method has changed, this may include reference ranges. GLUCOSE 2025-06-16 04:34 [facility] 106 mg/dl As of February 2023 testing method has changed, this may include reference ranges. HGB - HEMOGLOBIN 2025-06-16 04:34 [facility] 11.1 g /dl (missing) GFR - MDRD 2025-06-16 04:34 [facility] 123 (missin g) The IDMS-traceable MDRD Study [...] 2011. RED CELL DISTRIBUTION WIDTH 2025-06-16 04:34 [facility] 13.1 % (mi ssing) SODIUM 2025-06-16 04:34 [facility] 138 mmol/l (missing) BUN - BLOOD UREA NITROGEN 2025-06-16 04:34 [facility] 17 mg/dl As of Feb testing method has changed, this may include reference ranges. ANION GAP 2025-06-16 04:34 [facility] 2.0 (missing ) (missing) PHOSPHORUS 2025-06-16 04:34 [facility] 2.3 mg/dl As of February 2023 testing method has changed, this may include reference ranges. MEAN CORPUSCULAR HEMOGLOBIN 2025-06-16 04:34 [facility] 29.1 pg (missing) PLT - PLATELET COUNT 2025-06-16 04:34 [facility] 297 10 3/ul (missing) POTASSIUM 2025-06-16 04:34 [facility] 3.7 mmol/l As of February 2023 testing method has changed, this may include reference ranges. RED BLOOD COUNT 2025-06-16 04:34 [facility] 3.82 10 6/ul (missing) HCT - HEMATOCRIT 2025-06-16 04:34 [facility] 32.8 % (missing) MEAN CORPUSCULAR HGB CONC 2025-06-16 04:34 [facility] 33.8 g/dl (missing) CARBON DIOXIDE - CO2 2025-06-16 04:34 [facility] 38 mmol/l As of February 2023 testing method has changed, this may include reference ranges. VBG PH 2025-06-16 04:34 [facility] 7.503 (missing ) (missing) WHITE BLOOD COUNT 2025-06-16 04:34 [facility] 8.8 x10 3/ul (missing) CALCIUM 2025-06-16 04:34 [facility] 8.9 mg/dl As of February 2023 testing method has changed, this may include reference ranges. MEAN CORPUSCULAR VOLUME 2025-06-16 04:34 [facility] 85.9 fl (missing) MEAN PLATELET VOLUME 2025-06-16 04:34 [facility] 9.8 fl (missing) CHLORIDE 2025-06-16 04:34 [facility] 98 mmol/l As of February 2023 testing method has changed, this may include reference ranges. Result panel 21 CREATININE 2025-06-17 04:50 [facility] 0.5 mg/dl As of February 2023 testing method has changed, this may include reference ranges. CALCIUM, IONIZED 2025-06-17 04:50 [facility] 1.14 m mol/l (missing) MAGNESIUM 2025-06-17 04:50 [facility] 1.7 mg/dl As of February 2023 testing method has changed, this may include reference ranges. GLUCOSE 2025-06-17 04:50 [facility] 111 mg/dl As of February 2023 testing method has changed, this may include reference ranges. BUN - BLOOD UREA NITROGEN 2025-06-17 04:50 [facility] 12 mg/dl As of Feb testing method has changed, this may include reference ranges. GFR - MDRD 2025-06-17 04:50 [facility] 123 (luis peoples) The IDMS-traceable MDRD Study [...] caring for patients older than 70. References: http://www.nkdep.[facility].gov/lab-evaluatio n/gfr/creatinine-st and ardization, last updated October 2011. SODIUM 2025-06-17 04:50 [facility] 137 mmol/l (missing) PHOSPHORUS 2025-06-17 04:50 [facility] 2.4 mg/dl As of February 2023 testing method has changed, this may include reference ranges. POTASSIUM 2025-06-17 04:50 [facility] 3.0 mmol/l As of February 2023 testing method has changed, this may include reference ranges. CARBON DIOXIDE - CO2 2025-06-17 04:50 [facility] 39 mmol/l Critical result CO2 39 mmol/L called to and read back by KEILA Fish(POCKET AND PULLEY MACHINE OPERATOR) at 17-Jun-2025 05:22 by damaris. As of February 2023 testing method has changed, this may include reference ranges. ANION GAP 2025-06-17 04:50 [facility] 5.0 (missing ) (missing) VBG PH 2025-06-17 04:50 [facility] 7.562 (missing ) (missing) CALCIUM 2025-06-17 04:50 [facility] 8.7 mg/dl As of February 2023 testing method has changed, this may include reference ranges. CHLORIDE 2025-06-17 04:50 [facility] 93 mmol/l As of February 2023 testing method has changed, this may include reference ranges. Result panel 22 CREATININE 2025-06-18 04:21 [facility] 0.5 mg/dl As of February 2023 testing method has changed, this may include reference ranges. CALCIUM, IONIZED 2025-06-18 04:21 [facility] 1.09 m mol/l (missing) MAGNESIUM 2025-06-18 04:21 [facility] 1.8 mg/dl As of February 2023 testing method has changed, this may include reference ranges. GFR - MDRD 2025-06-18 04:21 [facility] 123 (in g) The IDMS-traceable MDRD Study [...] last updated October 2011. GLUCOSE 2025-06-18 04: [facility] 124 mg/dl As of February 2023 testing method has changed, this may include reference ranges. SODIUM 2025-06-18 04:21 [facility] 138 mmol/l (missing) BUN - BLOOD UREA NITROGEN 2025-06-18 04:21 [facility] 16 mg/dl As of Feb testing method has changed, this may include reference ranges. ANION GAP 2025-06-18 04:21 [facility] 2.0 (missing ) (missing) POTASSIUM 2025-06-18 04:21 [facility] 2.8 mmol/l As of February 2023 testing method has changed, this may include reference ranges. PHOSPHORUS 2025-06-18 04:21 [facility] 3.2 mg/dl As of February 2023 testing method has changed, this may include reference ranges. CARBON DIOXIDE - CO2 2025-06-18 04:21 [facility] 41 mmol/l Critical result CO2 41 mmol/L called to and read back by VIVEK LYNCH RN at 18-Jun-2025 04:56 by betty. As of February 2023 testing method has changed, this may include reference ranges. VBG PH 2025-06-18 04:21 [facility] 7.615 (missing ) Called to CHUY Scott OPERATIONS ASSOCIATE by BIJAN FerminT([facility]) at 0429 06/18/25. Read back(Y/N)? Y CALCIUM 2025-06-18 04:21 [facility] [employer] [facility] 8.5 mg/dl As of February 2023 testing method has changed, this may include reference ranges. CHLORIDE 2025-06-18 04:21 [facility] 95 mmol/l As of February 2023 testing method has changed, this may include reference ranges. Result panel 23 CREATININE 2025-06-18 17:17 [facility] [employer] 0.5 mg/dl As of February 2023 testing method has changed, this may include reference ranges. BUN - BLOOD UREA NITROGEN 2025-06-18 17:17 [facility] [employer] [facility] [employer] 11 mg/dl As of Feb testing method has changed, this may include reference ranges. GLUCOSE 2025-06-18 17:17 [facility] [employer] 120 mg/dl As of February 2023 testing method has changed, this may include reference ranges. GFR - MDRD 2025-06-18 17:17 [facility] 123 (in g) The IDMS-traceable MDRD Study [...] last updated October 2011. SODIUM 2025-06-18 17:17 [facility] 139 mmol/l (missing) ANION GAP 2025-06-18 17:17 [facility] 2.0 (missing ) (missing) POTASSIUM 2025-06-18 17:17 [facility] 3.4 mmol/l As of February 2023 testing method has changed, this may include reference ranges. CARBON DIOXIDE - CO2 2025-06-18 17:17 [facility] 38 mmol/l As of Feb testing method has changed, this may include reference ranges. CALCIUM 2025-06-18 17:17 [facility] 8.9 mg/dl As of February 2023 testing method has changed, this may include reference ranges. CHLORIDE 2025-06-18 17:17 [facility] 99 mmol/l As of February 2023 testing method has changed, this may include reference ranges. Result panel 24 CREATININE 2025-06-19 04:57 [facility] 0.5 mg/dl As of February 2023 testing method has changed, this may include reference ranges. CALCIUM, IONIZED 2025-06-19 04:57 [facility] 1.13 m mol/l (missing) MAGNESIUM 2025-06-19 04:57 [facility] 1.7 mg/dl As of February 2023 testing method has changed, this may include reference ranges. CHLORIDE 2025-06-19 04:57 [facility] 103 mmol/l As of February 2023 testing method has changed, this may include reference ranges. BUN - BLOOD UREA NITROGEN 2025-06-19 04:57 [facility] 11 mg/dl As of Feb testing method has changed, this may include reference ranges. GFR - MDRD 2025-06-19 04:57 [facility] 123 (missin g) The IDMS-traceable MDRD Study [...] last updated October 2011. SODIUM 2025-06-19 04:57 [facility] 138 mmol/l (missing) ANION GAP 2025-06-19 04:57 [facility] [employer] 2.0 (missing ) (missing) PHOSPHORUS 2025-06-19 04:57 [facility] [employer] 3.0 mg/dl As of February 2023 testing method has changed, this may include reference ranges. CARBON DIOXIDE - CO2 2025-06-19 04:57 [facility] 33 mmol/l As of Feb testing method has changed, this may include reference ranges. POTASSIUM 2025-06-19 04:57 [facility] 4.1 mmol/l As of February 2023 testing method has changed, this may include reference ranges. VBG PH 2025-06-19 04:57 [facility] [employer] [facility] [employer] 7.532 (missing ) (missing) CALCIUM 2025-06-19 04:57 [facility] 8.1 mg/dl As of February 2023 testing method has changed, this may include reference ranges. GLUCOSE 2025-06-19 04:57 [facility] [employer] 94 mg/dl As of February 2023 testing method has changed, this may include reference ranges. Result panel 25 CREATININE 2025-06-20 04:29 [facility] 0.6 mg/dl As of February 2023 testing method has changed, this may include reference ranges. ANION GAP 2025-06-20 04:29 [facility] [employer] 1.0 (missing ) (missing) CALCIUM, IONIZED 2025-06-20 04:29 [facility] 1.18 m mol/l (missing) MAGNESIUM 2025-06-20 04:29 [facility] 1.8 mg/dl As of February 2023 testing method has changed, this may include reference ranges. CHLORIDE 2025-06-20 04:29 [facility] 102 mmol/l As of February 2023 testing method has changed, this may include reference ranges. GLUCOSE 2025-06-20 04:29 [facility] [employer] [facility] 111 mg/dl As of February 2023 testing method has changed, this may include reference ranges. BUN - BLOOD UREA NITROGEN 2025-06-20 04:29 [facility] [employer] [facility] [employer] 14 mg/dl As of Feb testing method has changed, this may include reference ranges. SODIUM 2025-06-20 04:29 [facility] [employer] [facility] 140 mmol/l (missing) PHOSPHORUS 2025-06-20 04:29 [facility] 3.8 mg/dl As of February 2023 testing method has changed, this may include reference ranges. CARBON DIOXIDE - CO2 2025-06-20 04:29 [facility] 37 mmol/l As of Feb testing method has changed, this may include reference ranges. POTASSIUM 2025-06-20 04:29 [facility] 4.6 mmol/l As of February 2023 testing method has changed, this may include reference ranges. VBG PH 2025-06-20 04:29 [facility] 7.446 (missing ) (missing) CALCIUM 2025-06-20 04:29 [facility] 8.6 mg/dl As of February 2023 testing method has changed, this may include reference ranges. GFR - MDRD 2025-06-20 04:29 [facility] 99 (luis peoples) The IDMS-traceable MDRD Study [...] NUCLEATED RED BLOOD CELLS AUTO 2025-06-20 04:43 [facility] 0.0 /100wbc (missing) BASOPHILS # (AUTO) 2025-06-20 04:43 [facility] 0.0 10 3/ul (missing) NRBC ABSOLUTE COUNT (AUTO) 2025-06-20 04:43 [facility] 0 .00 x10 3/ul (missing) EOSINOPHILS # (AUTO) 2025-06-20 04:43 [facility] 0.4 10 3/ul (missing) MONOCYTES # (AUTO) 2025-06-20 04:43 [facility] 0.8 10 3/ul (missing) LYMPHOCYTES # (AUTO) 2025-06-20 04:43 [facility] 1.6 10 3/ul (missing) MEAN PLATELET VOLUME 2025-06-20 04:43 [facility] 10.[facility] fl (missing) HGB - HEMOGLOBIN 2025-06-20 04:43 [facility] 11.1 g /dl (missing) RED CELL DISTRIBUTION WIDTH 2025-06-20 04:43 [facility] 14.0 % (missing) MEAN CORPUSCULAR HEMOGLOBIN 2025-06-20 04:43 [facility] 28.5 pg (missing) RED BLOOD COUNT 2025-06-20 04:43 [facility] 3.90 10 6/ul (missing) MEAN CORPUSCULAR HGB CONC 2025-06-20 04:43 [facility] 30 .5 g/dl (missing) PLT - PLATELET COUNT 2025-06-20 04:43 [facility] 321 10 3/ul (missing) HCT - HEMATOCRIT 2025-06-20 04:43 [facility] 36.4 % (missing) NEUTROPHILS # (AUTO) 2025-06-20 04:43 [facility] 5.3 10 3/ul (missing) WHITE BLOOD COUNT 2025-06-20 04:43 [facility] 8.1 x10 3/ul (missing) MEAN CORPUSCULAR VOLUME 2025-06-20 04:43 [facility] 93.3 fl (missing) Result panel 27 LACTIC ACID, VENOUS 2025-06-20 13:27 [facility] 0.6 mmol/l N As of February 2023 testing method has changed, this may include reference ranges. Result panel 28 WBC,URINE 2025-06-20 15:00 [facility] 0-3 /hpf (missing) UROBILINOGEN,URI NE 2025-06-20 15:00 [facility] 0.2 (NORMAL) e.u./dl (missing) SPECIFIC GRAVITY,URINE 2025-06-20 15:00 [facility] 1.030 (missing) (missing) RBC,URINE 2025-06-20 15:00 [facility] 11-25 /hpf (missing) PROTEIN,URINE 2025-06-20 15:00 [facility] 30 mg/dl (missing) PH,URINE 2025-06-20 15:00 [facility] (missing) UR CULTURE IF IND 2025-06-20 15:00 [facility] NOT INDICATED (missing) (missing) COLOR,URINE 2025-06-20 15:00 [facility] YELLOW (missing) URINE CATHETERIZED Result panel 29 ANION GAP 2025-06-21 04:23 [facility] 0.0 (missing ) (missing) NUCLEATED RED BLOOD CELLS AUTO 2025-06-21 04:23 [facility] 0.0 /100wbc (missing) BASOPHILS # (AUTO) 2025-06-21 04:23 [facility] 0.0 10 3/ul (missing) NRBC ABSOLUTE COUNT (AUTO) 2025-06-21 04:23 [facility] 0.00 x10 3/ul (missing) EOSINOPHILS # (AUTO) 2025-06-21 04:23 [facility] 0.4 10 3/ul (missing) CREATININE 2025-06-21 04:23 [facility] 0.5 mg/dl As of February 2023 testing method has changed, this may include reference ranges. MONOCYTES # (AUTO) 2025-06-21 04:23 [facility] 0.9 10 3/ul (missing) CALCIUM, IONIZED 2025-06-21 04: [facility] 1.20 m mol/l (missing) LYMPHOCYTES # (AUTO) 2025-06-21 04: [facility] 1.3 10 3/ul (missing) MAGNESIUM 2025-06-21 04: [facility] 1.8 mg/dl As of February 2023 testing method has changed, this may include reference ranges. HGB - HEMOGLOBIN 2025-06-21 04: [facility] 10.7 g /dl (missing) CHLORIDE 2025-06-21 04: [facility] 103 mmol/l As of February 2023 testing method has changed, this may include reference ranges. GLUCOSE 2025-06-21: [facility] 116 mg/dl As of February 2023 testing method has changed, this may include reference ranges. GFR - MDRD 2025-06-21: [facility] 123 (luis peoples) The IDMS-traceable MDRD Study [...] 2011. BUN - BLOOD UREA NITROGEN 2025-06-21: [facility] 13 mg/dl As of Feb testing method has changed, this may include reference ranges. RED CELL DISTRIBUTION WIDTH 2025-06-21: [facility] 13.5 % (mi ssing) SODIUM 2025-06-21: [facility] 140 mmol/l (missing) PLT - PLATELET COUNT 2025-06-21 04: [facility] 277 10 3/ul (missing) MEAN CORPUSCULAR HEMOGLOBIN 2025-06-21 04: [facility] 29.3 pg (missing) PHOSPHORUS 2025-06-21 04:23 [email or web address] 3.3 mg/dl As of February 2023 testing method has changed, this may include reference ranges. RED BLOOD COUNT 2025-06-21 04:23 [facility] 3.65 10 6/ul (missing) POTASSIUM 2025-06-21 04:23 [facility] 3.8 mmol/l As of February 2023 testing method has changed, this may include reference ranges. MEAN CORPUSCULAR HGB CONC 2025-06-21 04:23 [facility] 32.3 g/dl (missing) HCT - HEMATOCRIT 2025-06-21 04:23 [facility] 33.1 % (missing) CARBON DIOXIDE - CO2 2025-06-21 04:23 [facility] 37 mmol/l As of February 2023 testing method has changed, this may include reference ranges. NEUTROPHILS # (AUTO) 2025-06-21 04:23 [facility] 4.0 10 3/ul (missing) WHITE BLOOD COUNT 2025-06-21 04:23 [facility] 6.7 x10 3/ul (missing) VBG PH 2025-06-21 04:23 [facility] 7.400 (missing ) (missing) CALCIUM 2025-06-21 04:23 [facility] 8.5 mg/dl As of February 2023 testing method has changed, this may include reference ranges. MEAN PLATELET VOLUME 2025-06-21 04:23 [facility] 9.3 fl (missing) MEAN CORPUSCULAR VOLUME 2025-06-21 04:23 [facility] 90.7 fl (missing) Result panel 30 ANION GAP 2025-06-22 04:39 [facility] -1.0 (missing ) (missing) NUCLEATED RED BLOOD CELLS AUTO 2025-06-22 04:39 [facility] 0.0 /100wbc (missing) BASOPHILS # (AUTO) 2025-06-22 04:39 [facility] 0.0 10 3/ul (missing) NRBC ABSOLUTE COUNT (AUTO) 2025-06-22 04:39 [facility] 0.00 x10 3/ul (missing) EOSINOPHILS # (AUTO) 2025-06-22 04:39 [facility] 0.3 10 3/ul (missing) CREATININE 2025-06-22 04:39 [facility] 0.5 mg/dl As of February 2023 testing method has changed, this may include reference ranges. MONOCYTES # (AUTO) 2025-06-22 04:39 [facility] 0.8 10 3/ul (missing) CALCIUM, IONIZED 2025-06-22 04:39 [facility] 1.23 m mol/l (missing) LYMPHOCYTES # (AUTO) 2025-06-22 04:39 [facility] 1.3 10 3/ul (missing) MAGNESIUM 2025-06-22 04:39 [facility] 1.7 mg/dl As of February 2023 testing method has changed, this may include reference ranges. CHLORIDE 2025-06-22 04:39 [facility] 101 mmol/l As of February 2023 testing method has changed, this may include reference ranges. GLUCOSE 2025-06-22 04:39 [facility] 104 mg/dl As of February 2023 testing method has changed, this may include reference ranges. GFR - MDRD 2025-06-22 04:39 [facility] 123 (in g) The IDMS-traceable MDRD Study [...] 2011. RED CELL DISTRIBUTION WIDTH 2025-06-22 04:39 [facility] 13.5 % (mi ssing) SODIUM 2025-06-22 04:39 [facility] 140 mmol/l (missing) PLT - PLATELET COUNT 2025-06-22 04:39 [facility] 264 10 3/ul (missing) MEAN CORPUSCULAR HEMOGLOBIN 2025-06-22 04:39 [facility] 27.9 pg (missing) RED BLOOD COUNT 2025-06-22 04:39 [facility] 3.37 10 6/ul (missing) PHOSPHORUS 2025-06-22 04:39 [facility] 3.6 mg/dl As of February 2023 testing method has changed, this may include reference ranges. NEUTROPHILS # (AUTO) 2025-06-22 04:39 [facility] 3.9 10 3/ul (missing) MEAN CORPUSCULAR HGB CONC 2025-06-22 04:39 [facility] 30.3 g/dl (missing) HCT - HEMATOCRIT 2025-06-22 04:39 [facility] 31.0 % (missing) POTASSIUM 2025-06-22 04:39 [facility] 4.0 mmol/l As of February 2023 testing method has changed, this may include reference ranges. CARBON DIOXIDE - CO2 2025-06-22 04:39 [facility] 40 mmol/l Critical result CO2 40 mmol/L called to and read back by KEILA Loza OPERATIONS ASSOCIATE at 22-Jun-2025 05:07 by michelle. As of February 2023 testing method has changed, this may include reference ranges. WHITE BLOOD COUNT 2025-06-22 04:39 [facility] 6.3 x10 3/ul (missing) VBG PH 2025-06-22 04:39 [facility] 7.412 (missing ) (missing) CALCIUM 2025-06-22 04:39 [facility] 8.5 mg/dl As of February 2023 testing method has changed, this may include reference ranges. BUN - BLOOD UREA NITROGEN 2025-06-22 04:39 [facility] 9 mg/dl As of Feb testing method has changed, this may include reference ranges. HGB - HEMOGLOBIN 2025-06-22 04:39 [facility] 9.4 g /dl (missing) MEAN PLATELET VOLUME 2025-06-22 04:39 [facility] 9.5 fl (missing) MEAN CORPUSCULAR VOLUME 2025-06-22 04:39 [facility] 92.0 fl (missing) Result panel 31 CREATININE 2025-06-23 04:44 [facility] 0.5 mg/dl As of February 2023 testing method has changed, this may include reference ranges. CALCIUM, IONIZED 2025-06-23 04:44 [facility] 1.17 m mol/l (missing) MAGNESIUM 2025-06-23 04:44 [facility] 1.8 mg/dl As of February 2023 testing method has changed, this may include reference ranges. HGB - HEMOGLOBIN 2025-06-23 04:44 [facility] 10.6 g /dl (missing) CHLORIDE 2025-06-23 04:44 [facility] 100 mmol/l As of February 2023 testing method has changed, this may include reference ranges. GLUCOSE 2025-06-23 04:44 [facility] 111 mg/dl As of February 2023 testing method has changed, this may include reference ranges. GFR - MDRD 2025-06-23 04:44 [facility] 123 (luis g) The IDMS-traceable MDRD Study [...] 2011. RED CELL DISTRIBUTION WIDTH 2025-06-23 04:44 [facility] 13.2 % (mi ssing) SODIUM 2025-06-23 04:44 [facility] 140 mmol/l (missing) ANION GAP 2025-06-23 04:44 [facility] 2.0 (missing ) (missing) PLT - PLATELET COUNT 2025-06-23 04:44 [facility] 271 10 3/ul (missing) MEAN CORPUSCULAR HEMOGLOBIN 2025-06-23 04:44 [facility] 28.6 pg (missing) PHOSPHORUS 2025-06-23 04:44 [facility] 3.2 mg/dl As of February 2023 testing method has changed, this may include reference ranges. RED BLOOD COUNT 2025-06-23 04:44 [facility] 3.70 10 6/ul (missing) MEAN CORPUSCULAR HGB CONC 2025-06-23 04:44 [facility] 31.5 g/dl (missing) HCT - HEMATOCRIT 2025-06-23 04:44 [facility] 33.7 % (missing) CARBON DIOXIDE - CO2 2025-06-23 04:44 [facility] 38 mmol/l As of February 2023 testing method has changed, this may include reference ranges. POTASSIUM 2025-06-23 04:44 [facility] 4.0 mmol/l As of February 2023 testing method has changed, this may include reference ranges. BUN - BLOOD UREA NITROGEN 2025-06-23 04:44 [facility] 7 mg/dl As of Feb testing method has changed, this may include reference ranges. VBG PH 2025-06-23 04:44 [facility] 7.478 (missing ) (missing) WHITE BLOOD COUNT 2025-06-23 04:44 [facility] 8.1 x10 3/ul (missing) CALCIUM 2025-06-23 04:44 [facility] 8.9 mg/dl As of February 2023 testing method has changed, this may include reference ranges. MEAN PLATELET VOLUME 2025-06-23 04:44 [facility] 9.5 fl (missing) MEAN CORPUSCULAR VOLUME 2025-06-23 04:44 [facility] 91.1 fl (missing) Result panel 32 CULTURE, BLOOD #1 2025-06-25 16:12 [facility] NG1D NO GROWTH AFTER 1 DAY (missing) (missing) CULTURE, BLOOD #2 2025-06-25 16:12 [facility] NG1D NO GROWTH AFTER 1 DAY (missing) (missing) CULTURE, BLOOD #1 2025-06-25 16:12 [facility] NG2D NO GROWTH AFTER 2 DAYS (missing) (missing) CULTURE, BLOOD #2 2025-06-25 16:12 [facility] NG2D NO GROWTH AFTER 2 DAYS (missing) (missing) CULTURE, BLOOD #1 2025-06-25 16:12 [facility] NG5D NO GROWTH AFTER 5 DAYS (missing) (missing) CULTURE, BLOOD #2 2025-06-25 16:12 [facility] NG5D NO GROWTH AFTER 5 DAYS (missing) (missing) Result panel 33 NUCLEATED RED BLOOD CELLS AUTO 2025-06-25 16:14 [facility] 0.0 /100wbc (missing) BASOPHILS # (AUTO) 2025-06-25 16:14 [facility] 0.0 10 3/ul (missing) NRBC ABSOLUTE COUNT (AUTO) 2025-06-25 16:14 [facility] 0.00 x10 3/ul (missing) EOSINOPHILS # (AUTO) 2025-06-25 16:14 [facility] 0.2 10 3/ul (missing) CREATININE 2025-06-25 16:14 [facility] 0.6 mg/dl As of February 2023 testing method has changed, this may include reference ranges. MONOCYTES # (AUTO) 2025-06-25 16:14 [facility] 0.8 10 3/ul (missing) LACTIC ACID, VENOUS 2025-06-25 16:14 [facility] 0.9 mmol/l Y As of February 2023 testing method has changed, this may include reference ranges. LYMPHOCYTES # (AUTO) 2025-06-25 16:14 [facility] 1.2 10 3/ul (missing) BILIRUBIN,TOTAL 2025-06-25 16:14 [facility] 1.2 mg/dl As of February 2023 testing method has changed, this may include reference ranges. ALBUMIN/GLOBULIN RATIO 2025-06-25 16:14 [facility] 1.6 (missing) (missing) BUN - BLOOD UREA NITROGEN 2025-06-25 16:14 [facility] 10 mg/dl As of February 2023 testing method has changed, this may include reference ranges. WHITE BLOOD COUNT 2025-06-25 16:14 [facility] 10.2 x10 3/ul (missing) HGB - HEMOGLOBIN 2025-06-25 16:14 [facility] 10.3 g/dl (missing) CHLORIDE 2025-06-25 16:14 [facility] 100 mmol/l As of February 2023 testing method has changed, this may include reference ranges. RED CELL DISTRIBUTION WIDTH 2025-06-25 16:14 [facility] 13.4 % (missing) GLUCOSE 2025-06-25 16:14 [facility] 137 mg/dl As of February 2023 testing method has changed, this may include reference ranges. SODIUM 2025-06-25 16:14 [facility] 140 mmol/l (missing) ALT ALANINE AMINOTRANSFERASE 2025-06-25 16:14 [facility] 17 iu/l As of February 2023 testing method has changed, this may include reference ranges. AST ASPARTATE AMINOTRANSFERASE 2025-06-25 16:14 [facility] 18 iu/l As of February 2023 testing method has changed, this may include reference ranges. ANION GAP 2025-06-25 16:14 [facility] 2.0 (missing) (missing) GLOBULIN 2025-06-25 16:14 [facility] 2.2 g/dl (missing) PLT - PLATELET COUNT 2025-06-25 16:14 [facility] 248 10 3/ul (missing) MEAN CORPUSCULAR HEMOGLOBIN 2025-06-25 16:14 [facility] 28.9 pg (missing) POTASSIUM 2025-06-25 16:14 [facility] 3.4 mmol/l As of February 2023 testing method has changed, this may include reference ranges. ALBUMIN 2025-06-25 16:14 [facility] 3.5 g/dl As of February 2023 testing method has changed, this may include reference ranges. RED BLOOD COUNT 2025-06-25 16:14 [facility] 3.56 10 6/ul (missing) HCT - HEMATOCRIT 2025-06-25 16:14 [facility] 32.0 % (missing) MEAN CORPUSCULAR HGB CONC 2025-06-25 16:14 [facility] 32.2 g/dl (missing) CARBON DIOXIDE - CO2 2025-06-25 16:14 [facility] 38 mmol/l As of February 2023 testing method has changed, this may include reference ranges. ALKALINE PHOSPHATASE 2025-06-25 16:14 [facility] 49 iu/l As of February 2023 testing method has changed, this may include reference ranges. TOTAL PROTEIN 2025-06-25 16:14 [facility] 5.7 g/dl As of February 2023 testing method has changed, this may include reference ranges. NEUTROPHILS # (AUTO) 2025-06-25 16:14 [facility] 8.0 10 3/ul (missing) MEAN CORPUSCULAR VOLUME 2025-06-25 16:14 [facility] 89.9 fl (missing) MEAN PLATELET VOLUME 2025-06-25 16:14 [facility] 9.2 fl (missing) CALCIUM 2025-06-25 16:14 [facility] 9.4 mg/dl As of February 2023 testing method has changed, this may include reference ranges. GFR - MDRD 2025-06-25 16:14 [facility] 99 (missing) The IDMS-traceable MDRD Study [...] NUCLEATED RED BLOOD CELLS AUTO 2025-06-29 12:44 [facility] 0.0 /100wbc (missing) BASOPHILS # (AUTO) 2025-06-29 12:44 [facility] 0.0 10 3/ul (missing) NRBC ABSOLUTE COUNT (AUTO) 2025-06-29 12:44 [facility] 0.00 x10 3/ul (missing) EOSINOPHILS # (AUTO) 2025-06-29 12:44 [facility] 0.1 10 3/ul (missing) CREATININE 2025-06-29 12:44 [facility] 0.5 mg/dl As of February 2023 testing method has changed, this may include reference ranges. MONOCYTES # (AUTO) 2025-06-29 12:44 [facility] 0.6 10 3/ul (missing) INR 2025-06-29 12:44 [facility] 1.0 (missing) Oral Anticoagulant Indication INR range Venous Thrombosis, P.E. 2.0 - 3.0 Mechanical Valve 2.5 - 3.5 LYMPHOCYTES # (AUTO) 2025-06-29 12:44 [facility] 1.1 10 3/ul (missing) ALBUMIN/GLOBULIN RATIO 2025-06-29 12:44 [facility] 1.4 (missing) (missing) BILIRUBIN,TOTAL 2025-06-29 12:44 [facility] 1.5 mg/dl As of February 2023 testing method has changed, this may include reference ranges. HGB - HEMOGLOBIN 2025-06-29 12:44 [facility] 10.8 g/dl (missing) GLUCOSE 2025-06-29 12:44 [facility] 103 mg/dl As of February 2023 testing method has changed, this may include reference ranges. PT - PROTHROMBIN TIME 2025-06-29 12:44 [facility] 11.4 secs N GFR - MDRD 2025-06-29 12:44 [facility] 123 (missing) The IDMS-traceable MDRD Study Equation [...] 2011. RED CELL DISTRIBUTION WIDTH 2025-06-29 12:44 [facility] 13.8 % (missing) ALT ALANINE AMINOTRANSFERASE 2025-06-29 12:44 [facility] 14 iu/l As of February 2023 testing method has changed, this may include reference ranges. SODIUM 2025-06-29 12:44 [facility] 140 mmol/l (missing) AST ASPARTATE AMINOTRANSFERASE 2025-06-29 12:44 [facility] 16 iu/l As of February 2023 testing method has changed, this may include reference ranges. LIPASE 2025-06-29 12:44 [facility] 19 u/l As of February 2023 testing method has changed, this may include reference ranges. GLOBULIN 2025-06-29 12:44 [facility] 2.6 g/dl (missing) PLT - PLATELET COUNT 2025-06-29 12:44 [facility] 264 10 3/ul (missing) PARTIAL THROMBOPLASTIN TIME 2025-06-29 12:44 [facility] 27.3 secs N MEAN CORPUSCULAR HEMOGLOBIN 2025-06-29 12:44 [facility] 28.6 pg (missing) POTASSIUM 2025-06-29 12:44 [facility] 3.4 mmol/l As of February 2023 testing method has changed, this may include reference ranges. ALBUMIN 2025-06-29 12:44 [facility] 3.7 g/dl As of February 2023 testing method has changed, this may include reference ranges. RED BLOOD COUNT 2025-06-29 12:44 [facility] 3.78 10 6/ul (missing) MEAN CORPUSCULAR HGB CONC 2025-06-29 12:44 [facility] 31.8 g/dl (missing) HCT - HEMATOCRIT 2025-06-29 12:44 [facility] 34.0 % (missing) CARBON DIOXIDE - CO2 2025-06-29 12:44 [facility] 39 mmol/l Critical result CO2 39 mmol/L called to and read back by manuela novak/kevin/ed at 29-Jun-2025 13:32 by adrián. As of February 2023 testing method has changed, this may include reference ranges. ANION GAP 2025-06-29 12:44 [facility] 4.0 (missing) (missing) NEUTROPHILS # (AUTO) 2025-06-29 12:44 [facility] 5.7 10 3/ul (missing) ALKALINE PHOSPHATASE 2025-06-29 12:44 [facility] 55 iu/l As of February 2023 testing method has changed, this may include reference ranges. TOTAL PROTEIN 2025-06-29 12:44 [facility] 6.3 g/dl As of February 2023 testing method has changed, this may include reference ranges. WHITE BLOOD COUNT 2025-06-29 12:44 [facility] 7.6 x10 3/ul (missing) MEAN CORPUSCULAR VOLUME 2025-06-29 12:44 [facility] 89.9 fl (missing) BUN - BLOOD UREA NITROGEN 2025-06-29 12:44 [facility] 9 mg/dl As of February 2023 testing method has changed, this may include reference ranges. CALCIUM 2025-06-29 12:44 [facility] 9.2 mg/dl As of February 2023 testing method has changed, this may include reference ranges. MEAN PLATELET VOLUME 2025-06-29 12:44 [facility] 9.5 fl (missing) CHLORIDE 2025-06-29 12:44 [facility] 97 mmol/l As of February 2023 testing method has changed, this may include reference ranges. Result panel 35 OCCULT BLOOD IN PAT. SINGLE 2025-06-29 13:47 [facility] 1ONE (missing) (missin g) OCCULT BLOOD IN PAT. SINGLE 2025-06-29 13:47 [facility] NEGREFERENCE RANGE: NEGATIVE (missing) (missing) OCCULT BLOOD IN PAT. SINGLE 2025-06-29 13:47 [facility] NNEGATIVE (missing) (missin g) OCCULT BLOOD IN PAT. SINGLE 2025-06-29 13:47 [facility] NO.CARDSNUMBER OF CARDS (missing) (missing) OCCULT BLOOD IN PAT. SINGLE 2025-06-29 13:47 [facility] OCCULTOCCULT BLOOD (missing) (missing) OCCULT BLOOD IN PAT. SINGLE 2025-06-29 13:47 [facility] RR.[email or web address].NEG (missing) (missin g) Result panel 36 CARBON DIOXIDE - CO2 2025-07-10 12:52 [facility] > 45 mmol/l Critical result CO2 >45 called to and read back by SANA Bello RN at 10-Jul-2025 13:16 by [email or web address]. As of February 2023 testing method has changed, this may include reference ranges. NUCLEATED RED BLOOD CELLS AUTO 2025-07-10 12:52 [facility] 0.0 /100wbc (missing) BASOPHILS # (AUTO) 2025-07-10 12:52 [facility] 0.0 10 3/ul (missing) EOSINOPHILS # (AUTO) 2025-07-10 12:52 [facility] 0.0 10 3/ul (missing) NRBC ABSOLUTE COUNT (AUTO) 2025-07-10 12:52 [facility] x10 3/ul (missing) MONOCYTES # (AUTO) 2025-07-10 12:52 [facility] 0.3 10 3/ul (missing) CREATININE 2025-07-10 12:52 [facility] 0.4 mg/dl As of February 2023 testing method has changed, this may include reference ranges. LYMPHOCYTES # (AUTO) 2025-07-10 12:52 [facility] 0.5 10 3/ul (missing) LACTIC ACID, VENOUS 2025-07-10 12:52 [facility] 0.5 mmol/l N As of February 2023 testing method has changed, this may include reference ranges. ALBUMIN/GLOBULIN RATIO 2025-07-10 12:52 [facility] 1.6 (missing) (missing) BILIRUBIN,TOTAL 2025-07-10 12:52 [facility] 1.7 mg/dl As of February 2023 testing method has changed, this may include reference ranges. MAGNESIUM 2025-07-10 12:52 [facility] 1.8 mg/dl As of February 2023 testing method has changed, this may include reference ranges. CALCIUM 2025-07-10 12:52 [facility] 10.0 mg/dl As of February 2023 testing method has changed, this may include reference ranges. VBG OXYGEN SATURATION 2025-07-10 12:52 [facility] 100.0 % (missing) ALT ALANINE AMINOTRANSFERASE 2025-07-10 12:52 [facility] 11 iu/l As of February 2023 testing method has changed, this may include reference ranges. HGB - HEMOGLOBIN 2025-07-10 12:52 [facility] 12.0 g/dl (missing) GLUCOSE 2025-07-10 12:52 [facility] [employer] 127 mg/dl As of February 2023 testing method has changed, this may include reference ranges. RED CELL DISTRIBUTION WIDTH 2025-07-10 12:52 [facility] 13.6 % (missing) SODIUM 2025-07-10 12:52 [facility] 139 mmol/l (missing) GFR - MDRD 2025-07-10 12:52 [facility] [employer] 159 (missing) The IDMS-traceable MDRD Study Equation has [...] ation/gfr/creatin ine-stand ardization, last updated October 2011. AST ASPARTATE AMINOTRANSFERASE 2025-07-10 12:52 [facility] 18 iu/l As of February 2023 testing method has changed, this may include reference ranges. BUN - BLOOD UREA NITROGEN 2025-07-10 12:52 [facility] 19 mg/dl As of February 2023 testing method has changed, this may include reference ranges. GLOBULIN 2025-07-10 12:52 [facility] 2.6 g/dl (missing) MEAN CORPUSCULAR HEMOGLOBIN 2025-07-10 12:52 [facility] 28.2 pg (missing) POTASSIUM 2025-07-10 12:52 [facility] 3.3 mmol/l As of February 2023 testing method has changed, this may include reference ranges. VBG BASE EXCESS 2025-07-10 12:52 [facility] 31.0 mmol/l (missing) MEAN CORPUSCULAR HGB CONC 2025-07-10 12:52 [facility] 32.2 g/dl (missing) PLT - PLATELET COUNT 2025-07-10 12:52 [facility] 321 10 3/ul (missing) HCT - HEMATOCRIT 2025-07-10 12:52 [facility] 37.3 % (missing) ALBUMIN 2025-07-10 12:52 [facility] 4.2 g/dl As of February 2023 testing method has changed, this may include reference ranges. RED BLOOD COUNT 2025-07-10 12:52 [facility] 4.25 10 6/ul (missing) NEUTROPHILS # (AUTO) 2025-07-10 12:52 [facility] 4.6 10 3/ul (missing) WHITE BLOOD COUNT 2025-07-10 12:52 [facility] 5.4 x10 3/ul (missing) VBG HCO3 2025-07-10 12:52 [facility] 54.5 mmol/l (missing) VBG TOTAL CO2 2025-07-10 12:52 [facility] 56.6 mmol/l (missing) ALKALINE PHOSPHATASE 2025-07-10 12:52 [facility] 57 iu/l As of February 2023 testing method has changed, this may include reference ranges. TOTAL PROTEIN 2025-07-10 12:52 [facility] 6.8 g/dl As of February 2023 testing method has changed, this may include reference ranges. VBG PCO2 2025-07-10 12:52 [facility] 69.9 mmhg (missing) VBG PH 2025-07-10 12:52 [facility] 7.496 (missing) (missing) MEAN CORPUSCULAR VOLUME 2025-07-10 12:52 [facility] 87.8 fl (missing) CHLORIDE 2025-07-10 12:52 [facility] 89 mmol/l As of February 2023 testing method has changed, this may include reference ranges. MEAN PLATELET VOLUME 2025-07-10 12:52 [facility] 9.2 fl (missing) VBG PO2 2025-07-10 12:52 [facility] 99.2 mmhg (missing) ANION GAP 2025-07-10 12:52 [facility] TNP (missing) Unable to calculate. Analyte above the measurable range. Social History date description facility
[2025-07-10] MEDS: SODIUM CHLORIDE 0.9% 1,000 ML IV STA (15:20)
[2025-07-10] MEDS ORDERED: SODIUM CHLORIDE FLUSH 0.9% 10 ML SYRINGE IVP PRN (16:34)
[2025-07-10] MEDS: ACETAMINOPHEN 325 MG TABLET PO PRN (16:38)
[2025-07-10] MEDS: SODIUM CHLORIDE FLUSH 0.9% 10 ML SYRINGE IVP SCH (16:43)
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
[2025-07-10] MEDS ORDERED: ACETAMINOPHEN 325 MG TABLET PO PRN (17:34)
[2025-07-10] MEDS: SODIUM CHLORIDE 0.9% 1,000 ML IV SCH (17:39)
[2025-07-10] MEDS: oxyCODONE 5 MG TABLET PO PRN (17:48)
[2025-07-10] MEDS: hydrALAZINE INJ 20 MG/ML VIAL IVP ONE (17:49)
[2025-07-10] MEDS: MIRTAZAPINE 15 MG TABLET PO SCH (20:27)
[2025-07-10] MEDS: ATORVASTATIN 40 MG TABLET PO SCH (20:27)
[2025-07-10] MEDS: FAMOTIDINE 20 MG TABLET PO SCH (20:27)
[2025-07-10] MEDS: IPRATROPIUM/ALBUTEROL 3 ML NEB INH SCH (20:45)
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
[2025-07-10] MEDS: methylPREDNISolone SUCCINATE 40 MG/ML VIAL IVP SCH (22:05)
[2025-07-11] MEDS: hydrALAZINE INJ 20 MG/ML VIAL IVP PRN (00:25)
[2025-07-11 04:49] LABS: PHOSPHORUS 2.7 mg/dL (2.5-5.0)
[2025-07-11] MEDS: hydrALAZINE INJ 20 MG/ML VIAL IVP ONE (05:15)
[2025-07-11] MEDS: POTASSIUM CHLOR 10 MEQ/100 ML 10 MEQ/100 ML BAG IV SCH (05:38)
[2025-07-11 07:48] LABS: ABG PH 7.47 (7.35-7.45)
[2025-07-11 07:49] LABS: ABG BASE EXCESS 21.4 mmol/L (-2.0-3.0); ABG HCO3 45.3 mmol/L (22.0-26.0); ABG PO2 52 mmHg (83-108)
[2025-07-11 07:51] LABS: ABG OXYGEN SATURATION 83 % (95-98); ABG PCO2 62 mmHg (34-45); ABG TCO2 47.2 mmol/L (21.0-29.0)
[2025-07-11 07:55] LABS: ABG FRACTION OF INSPIRED O2 35.00
--- NOTE | 2025-07-11 08:01 | PROVIDER PROGRESS NOTE ---
Subjective Prog Note Date Prog Note Date: 07/11/25 Prog Note Time: 11:01 Subjective Pt reports feeling: Worse Subjective: Patient is a 70-year-old female with a history of COPD on 3 to 4 L of oxygen at home who presented due to increased work of breathing. Today, pt blood gases are worsening and pt having a hard time relating anything due to WOB. Pt still very reluctant to utilize BiPAP due to acute claustrophobia around its use, but pts brought her home BiPAP setup and RT was able to successfully transition her over to her home unit today, with improved sats, pleth, and tolerance. GOC/POLST conversations still ongoing with pt and pt's . Pt relates her ongoing desire to be full code, but the ongoing respiratory decline may drive reconsideration. Current Medications Current Medications Current Medications: Current Medications Generic Name Dose Route Start Last Admin Trade Name Freq PRN Reason Stop Dose Admin Acetaminophen 650 mg 07/10/25 17:34 Acetaminophen 325 Mg Tablet PO Q4HR PRN Pain or Fever > 38C (100.4F) Albuterol/Ipratropium 3 ml 07/10/25 17:00 07/11/25 03:17 Ipratropium/Albuterol 3 Ml Neb INH 3 ml Q4HR ABRAHAM Administration Atorvastatin Calcium 40 mg 07/10/25 21:00 07/10/25 20:27 Atorvastatin 40 Mg Tablet PO 40 mg QPM ABRAHAM Administration Carvedilol 6.25 mg 07/10/25 21:00 07/10/25 20:27 Carvedilol 3.125 Mg Tablet PO 6.25 mg BID ABRAHAM Administration Clopidogrel Bisulfate 75 mg 07/11/25 09:00 Clopidogrel 75 Mg Tablet PO DAILY ABRAHAM Enoxaparin Sodium 30 mg 07/11/25 09:00 Enoxaparin 30 Mg/0.3 Ml Syringe SUBQ DAILY ABRAHAM Famotidine 20 mg 07/10/25 21:00 07/10/25 20:27 Famotidine 20 Mg Tablet PO 20 mg BID ABRAHAM Administration Sodium Chloride 1,000 mls @ 75 mls/hr 07/10/25 18:00 07/11/25 06:14 Normal Saline 0.9% IV 75 mls/hr .[id number] ABRAHAM Administration Potassium Chloride 10 meq in 100 mls @ 100 mls/hr 07/11/25 06:00 07/11/25 06:44 Potassium Chloride IV 07/11/25 09:59 100 mls/hr Q1H ABRAHAM Administration Protocol Lisinopril 40 mg 07/11/25 09:00 Lisinopril 20 Mg Tablet PO DAILY ABRAHAM Lorazepam 0.5 mg 07/10/25 17:07 07/11/25 04:48 Lorazepam 0.5 Mg Tablet PO 0.5 mg TID PRN Administration Anxiety Methylprednisolone 40 mg 07/10/25 22:00 07/11/25 05:00 Methylprednisolone Succinate 40 Mg/Ml Vial IVP 40 mg TID ABRAHAM Administration Mirtazapine 15 mg 07/10/25 21:00 07/10/25 20:27 Mirtazapine 15 Mg Tablet PO 15 mg QPM ABRAHAM Administration Oxycodone HCl 5 mg 07/10/25 17:34 07/11/25 05:57 Oxycodone 5 Mg Tablet PO 5 mg Q4HR PRN Administration Moderate Pain (Level 4-6) Sodium Chloride 10 ml 07/10/25 17:00 07/11/25 00:12 Sodium Chloride Flush 0.9% 10 Ml Syringe IVP 10 ml 0100,0900,1700 ABRAHAM Administration Sodium Chloride 10 ml 07/10/25 16:34 Sodium Chloride Flush 0.9% 10 Ml Syringe IVP PRN PRN NEEDED PER PROVIDER ORDERS Objective Vital Signs/Intake & Output Reviewed Vital Signs: Yes Vital Signs: Vital Signs x48h Temp Pulse Pulse Resp BP BP Pulse Ox 07/11/25 07:00 100 40 H 150/60 H 96 07/11/25 07:00 88 33 H 150/60 H 92 07/11/25 06:30 93 27 H 149/97 H 96 07/11/25 06:00 94 30 H 149/97 H 07/11/25 06:00 99 30 H 149/97 H 98 07/11/25 05:40 103 H 32 H 156/64 H 97 07/11/25 05:35 99 34 H 138/80 H 97 07/11/25 05:35 138/80 H 07/11/25 05:30 97 34 H 146/71 H 97 07/11/25 05:30 146/71 H 07/11/25 05:25 96 33 H 168/107 H 97 07/11/25 05:25 167/107 H 07/11/25 05:22 94 30 H 184/88 H 98 07/11/25 05:20 93 31 H 185/87 H 98 07/11/25 05:20 184/88 H 07/11/25 05:15 174/112 H 07/11/25 05:10 91 32 H 174/112 H 97 07/11/25 05:03 95 32 H 186/88 H 88 L 07/11/25 05:00 93 37 H 178/76 H 95 07/11/25 05:00 90 33 H 186/88 H 95 07/11/25 04:58 96 32 H 175/99 H 98 07/11/25 04:00 99 35 H 164/67 H 93 07/11/25 04:00 36.7 C 87 34 H 164/67 H 95 07/11/25 03:20 96 30 H 07/11/25 03:00 98 33 H 149/74 H 92 07/11/25 03:00 95 37 H 149/74 H 93 07/11/25 02:00 95 33 H 135/62 H 93 07/11/25 02:00 92 35 H 135/62 H 92 07/11/25 01:45 129/64 07/11/25 01:40 94 37 H 129/64 92 07/11/25 01:35 94 25 H 130/60 93 07/11/25 01:30 94 27 H 118/56 L 93 07/11/25 01:25 96 27 H 133/55 H 92 07/11/25 01:20 94 36 H 135/56 H 93 07/11/25 01:15 98 30 H 135/57 H 93 07/11/25 01:10 98 32 H 128/60 92 07/11/25 01:05 96 33 H 133/67 H 91 L 07/11/25 01:01 101 H 33 H 176/79 H 89 L 07/11/25 01:00 97 30 H 135/56 H 93 07/11/25 00:55 102 H 33 H 143/61 H 89 L 07/11/25 00:55 99 143/61 H 07/11/25 00:50 99 35 H 141/65 H 91 L 07/11/25 00:49 96 34 H 147/70 H 90 L 07/11/25 00:45 102 H 39 H 190/93 H 88 L 07/11/25 00:45 98 141/65 H 07/11/25 00:40 97 38 H 123/58 L 92 07/11/25 00:40 88 123/58 L 07/11/25 00:38 90 148/66 H 07/11/25 00:35 80 25 H 148/66 H 91 L 07/11/25 00:30 85 33 H 157/74 H 91 L 07/11/25 00:29 92 157/74 H 07/11/25 00:25 171/75 H 07/11/25 00:21 88 31 H 171/75 H 90 L 07/11/25 00:20 89 37 H 173/93 H 92 07/11/25 00:16 86 38 H 163/75 H 91 L 07/11/25 00:07 83 27 H 168/88 H 91 L 07/11/25 00:02 88 34 H 196/93 H 94 O2 Flow Rate 07/11/25 07:00 07/11/25 07:00 45 07/11/25 06:30 45 07/11/25 06:00 07/11/25 06:00 45 07/11/25 05:40 07/11/25 05:35 07/11/25 05:35 07/11/25 05:30 07/11/25 05:30 07/11/25 05:25 07/11/25 05:25 07/11/25 05:22 07/11/25 05:20 07/11/25 05:20 07/11/25 05:15 07/11/25 05:10 07/11/25 05:03 07/11/25 05:00 07/11/25 05:00 45 07/11/25 04:58 07/11/25 04:00 07/11/25 04:00 45 07/11/25 03:20 45 07/11/25 03:00 07/11/25 03:00 45 07/11/25 02:00 07/11/25 02:00 45 07/11/25 01:45 07/11/25 01:40 07/11/25 01:35 07/11/25 01:30 07/11/25 01:25 07/11/25 01:20 07/11/25 01:15 07/11/25 01:10 07/11/25 01:05 07/11/25 01:01 07/11/25 01:00 45 07/11/25 00:55 07/11/25 00:55 07/11/25 00:50 07/11/25 00:49 07/11/25 00:45 07/11/25 00:45 07/11/25 00:40 07/11/25 00:40 07/11/25 00:38 07/11/25 00:35 07/11/25 00:30 07/11/25 00:29 07/11/25 00:25 07/11/25 00:21 07/11/25 00:20 07/11/25 00:16 07/11/25 00:07 07/11/25 00:02 Intake & Output: Intake & Output 07/08/25 07/09/25 07/10/25 07/11/25 23:59 23:59 23:59 23:59 Intake Total 1000 / 1000 1044 / 1044 Output Total 200 / 200 150 / 150 Balance 800 / 800 894 / 894 Weight (kg) 33.5 kg 35 kg Objective General Appearance: positive Moderate distress Eyes Bilateral: positive Normal inspection Neck: positive Nml inspection Respiratory: negative No respiratory distress Abdomen: positive Non-tender Extremities: positive Non-tender Lab Results 07/10/25 12:52 07/11/25 04:22 Other Labs: Lab Results x24hrs 07/11/25 07/11/25 07/10/25 Range/Units 07:38 04:22 18:30 WBC (4.8-10.8) x10^3/uL RBC (4.20-5.40) 10^6/uL Hgb (12.0-16.0) g/dL Hct (37.0-47.0) % MCV (81.0-99.0) fL MCH (27.0-31.0) pg MCHC (32.0-36.0) g/dL RDW (12.0-15.0) % Plt Count (130-450) 10^3/uL MPV (7.9-10.8) fL Neut # (Auto) (1.5-6.6) 10^3/uL Lymph # (Auto) (1.5-3.5) 10^3/uL [place] # (Auto) (0.0-1.0) 10^3/uL Eos # (Auto) (0.0-0.7) 10^3/uL Baso # (Auto) (0.0-0.1) 10^3/uL Absolute Nucleated RBC x10^3/uL Nucleated RBC % /100WBC D-Dimer (200.0-255.0) ng/mL Bld Gas Analysis Time 0742 Sample Site RIGHT RADIAL ABG pH 7.47 H (7.35-7.45) ABG pCO2 62 H* (34-45) mmHg ABG pO2 52 L (83-108) mmHg ABG HCO3 45.3 H (22.0-26.0) mmol/L ABG Total CO2 47.2 H* (21.0-29.0) mmol/L ABG O2 Saturation 83 L* (95-98) % ABG Base Excess 21.4 H (-2.0-3.0) mmol/L Manjit Test POSITIVE VBG pH (7.31-7.41) VBG pCO2 (41-51) mmHg VBG pO2 (25-47) mmHg VBG HCO3 (23-28) mmol/L VBG Total CO2 (24-29) mmol/L VBG O2 Saturation (60-80) % VBG Base Excess (-2 - +2) mmol/L O2 Delivery Device NASAL CANNULA O2 Liters/Min 45.00 LPM FiO2 35.00 Sodium (135-145) mmol/L Potassium 3.2 L (3.5-4.5) mmol/L Chloride (101-111) mmol/L Carbon Dioxide (21-32) mmol/L Anion Gap BUN (6-20) mg/dL Creatinine (0.6-1.3) mg/dL Estimated GFR (MDRD) (>89) Glucose (74-104) mg/dL Lactic Acid (0.5-2.2) mmol/L Calcium (8.5-10.3) mg/dL Phosphorus 2.7 (2.5-5.0) mg/dL Magnesium 1.9 (1.7-2.3) mg/dL Total Bilirubin (0.2-1.0) mg/dL AST (10-42) IU/L ALT (10-60) IU/L Alkaline Phosphatase (42-121) IU/L Total Protein (6.4-8.9) g/dL Albumin (3.2-5.5) g/dL Globulin (2.1-4.2) g/dL Albumin/Globulin Ratio (1.0-2.2) Nasal Screen MRSA (PCR) (NEGATIVE) Stl C. diff Tox B Gene NEGATIVE (NEGATIVE) 07/10/25 07/10/25 07/10/25 Range/Units 17:58 16:00 12:52 WBC 5.4 (4.8-10.8) x10^3/uL RBC 4.25 (4.20-5.40) 10^6/uL Hgb 12.0 (12.0-16.0) g/dL Hct 37.3 (37.0-47.0) % MCV 87.8 (81.0-99.0) fL MCH 28.2 (27.0-31.0) pg MCHC 32.2 (32.0-36.0) g/dL RDW 13.6 (12.0-15.0) % Plt Count 321 (130-450) 10^3/uL MPV 9.2 (7.9-10.8) fL Neut # (Auto) 4.6 (1.5-6.6) 10^3/uL Lymph # (Auto) 0.5 L (1.5-3.5) 10^3/uL [place] # (Auto) 0.3 (0.0-1.0) 10^3/uL Eos # (Auto) 0.0 (0.0-0.7) 10^3/uL Baso # (Auto) 0.0 (0.0-0.1) 10^3/uL Absolute Nucleated RBC 0.00 x10^3/uL Nucleated RBC % 0.0 /100WBC D-Dimer < 200.0 L (200.0-255.0) ng/mL Bld Gas Analysis Time Sample Site ABG pH (7.35-7.45) ABG pCO2 (34-45) mmHg ABG pO2 (83-108) mmHg ABG HCO3 (22.0-26.0) mmol/L ABG Total CO2 (21.0-29.0) mmol/L ABG O2 Saturation (95-98) % ABG Base Excess (-2.0-3.0) mmol/L Manjit Test VBG pH 7.496 H (7.31-7.41) VBG pCO2 69.9 H (41-51) mmHg VBG pO2 99.2 H (25-47) mmHg VBG HCO3 54.5 H (23-28) mmol/L VBG Total CO2 56.6 H (24-29) mmol/L VBG O2 Saturation 100.0 H (60-80) % VBG Base Excess 31.0 H (-2 - +2) mmol/L O2 Delivery Device O2 Liters/Min LPM FiO2 Sodium 139 (135-145) mmol/L Potassium 3.3 L (3.5-4.5) mmol/L Chloride 89 L (101-111) mmol/L Carbon Dioxide > 45 H* (21-32) mmol/L Anion Gap TNP BUN 19 (6-20) mg/dL Creatinine 0.4 L (0.6-1.3) mg/dL Estimated GFR (MDRD) 159 (>89) Glucose 127 H (74-104) mg/dL Lactic Acid 0.5 (0.5-2.2) mmol/L Calcium 10.0 (8.5-10.3) mg/dL Phosphorus (2.5-5.0) mg/dL Magnesium 1.8 (1.7-2.3) mg/dL Total Bilirubin 1.7 H (0.2-1.0) mg/dL AST 18 (10-42) IU/L ALT 11 (10-60) IU/L Alkaline Phosphatase 57 (42-121) IU/L Total Protein 6.8 (6.4-8.9) g/dL Albumin 4.2 (3.2-5.5) g/dL Globulin 2.6 (2.1-4.2) g/dL Albumin/Globulin Ratio 1.6 (1.0-2.2) Nasal Screen MRSA (PCR) NEGATIVE (NEGATIVE) Stl C. diff Tox B Gene (NEGATIVE) Assessment/Plan Problem List (1) Acute and chronic respiratory failure: Impression: Qualifiers: Respiratory failure complication: hypoxia and hypercapnia Qualified Code(s): J96.21 - Acute and chronic respiratory failure with hypoxia; J96.22 - Acute and chronic respiratory failure with hypercapnia (2) COPD (chronic obstructive pulmonary disease): Impression: The following plan is for the above two assessments: Patient likely has end- stage COPD. She is chronically on 3 to 4 L of oxygen at home. She had an extended stay at her last visit, and was set up with a BiPAP at home. She has not been using the BiPAP because she gets claustrophobic with it. As a result, she has had increased work of breathing. She denies any cough, fevers or chills. She has noted some wheezing at home as well. Patient likely has end-stage COPD. Goals of care discussion was repeated during this visit, as it was during her last visit, and she remains full code. She is okay with the ventilator if it is a short-term attempt. Palliative care has been consulted, appreciate recommendations. Will continue to have conversation to this point during her course of stay. At this time, IV steroids. Continue scheduled DuoNebs. She remains on high flow, and has been started on BiPAP but is still very resistant to sustained BiPAP use. Pt is tolerating BiPAP this morning after her morning Ativan and was sleeping while tolerating it for a portion of the day. - brought her home BiPAP setup and we will work with RT to attempt bridge to home BiPAP today with adequate coaching and encouragement. -Serial ABGs are being monitored, with persistent metabolic acidosis suspected. Overnight: pH 7.47, PCO2 62, PO2 52, HCO3 45.3, Total CO2 47.2, O2 sat 83, Base excess 21.4 During day: pH 7.49 PCO2 56, PO2 142, HCO3 42.9, Total CO2 44.6, O2 sat 100, Base excess 19.3 Qualifiers: COPD type: emphysema Emphysema type: unspecified Qualified Code(s): J 43.9 - Emphysema, unspecified (3) Diarrhea: Qualifiers: Diarrhea type: unspecified type Qualified Code(s): R19.7 - Diarrhea, unspecified (4) Metabolic alkalosis with respiratory acidosis: Impression: The following plan is for the above two assessments: Patient's has a primary metabolic alkalosis with compensation with respiratory acidosis. She continues to have diarrhea at home, although she states it is much improved from when she was discharged. She completed her vancomycin course for her C. difficile colitis, repeat GI sample resulted today which continues to show C. diff negativity. Continue gentle IV fluid rehydration. Encourage p.o. intake and oral rehydration as well. Monitor for continued metabolic alkalosis and revisit potassium repletion if needed. (5) Protein calorie malnutrition: Impression: Patient meets criteria for severe protein calorie malnutrition. Her states that she does not eat much at home. He is had to take her to the hospital before for poor appetite. Patient is now 33.3 kg (was 39 kg). Her BMI is 13.1. She is markedly reduced in her functional capacity due to her pulmonary function. Continue on Remeron 15 mg nightly, suspect this may have multiple benefits for the patient. Dietitian following, appreciate their recommendations. Qualifiers: Protein-calorie malnutrition severity: severe Qualified Code(s): E43 - Unspecified severe protein-calorie malnutrition (6) CAD (coronary artery disease): Impression: No recent outside records have been noted. Patient does state that she has CAD and had a stent placed in the last few years. Will continue her home medications which include atorvastatin, Plavix. Continue Coreg. She was hypotensive at last visit and amlodipine and lisinopril were discontinued on discharge. Will restart lisinopril this morning. ECHO ordered in case there is a component of heart failure, although patient appears hypovolemic at this time. Qualifiers: Associated angina: without angina Coronary Disease-Associated Artery/Lesion type: unspecified vessel or lesion type [place] vs. transplanted heart: [place] heart Qualified Code(s): I25.10 - Atherosclerotic heart disease of [place] coronary artery without angina pectoris (7) Urine retention: Impression: Per nursing staff, pt was not passing adequate urine, with total of 350ml out during the night and into this morning. PVR was obtained and found to be ~350mL. Nursing staff successful in obtaining Foly catheter placement, and collected ~320mL. Will continue to assess for urinary complaints or changes.
[2025-07-11] MEDS ORDERED: ONDANSETRON ODT 4 MG TABLET TL PRN (09:04)
[2025-07-11] MEDS: CLOPIDOGREL 75 MG TABLET PO SCH (09:05)
[2025-07-11] MEDS: ENOXAPARIN 30 MG/0.3 ML SYRINGE SUBQ SCH (09:06)
--- NOTE | 2025-07-11 09:41 | PHARMACY PROGRESS NOTE ---
Best Possible Medication History Admit Date and Time: 07/10/25 [id number] Home Medications Medication Instructions Recorded Confirmed Type albuterol sulfate 90 mcg/actuation 2 puff inhalation Q 4H PRN 12/05/18 07/10/25 History aerosol inhaler shortness of breath or wheez ing lorazepam 0.5 mg tablet 0.5 mg PO TID PRN Anxiety 07/10/25 History atorvastatin 20 mg tablet 40 mg (2 x 20 mg) PO QPM 30 days 09/27/23 07/10/25 Rx #60 tabs clopidogrel 75 mg tablet (Plavix) 75 mg PO DAILY #30 t abs 09/27/23 07/10/25 Rx pantoprazole 20 mg tablet,delayed 40 mg (2 x 20 mg) PO DAILY #30 caps 09/27/23 07/11/25 Rx release (Protonix) ipratropium 0.5 mg-albuterol 3 mg 3 ml inhalation Q4H PRN shortness 04/28/25 07/11/25 History (2.5 mg base)/3 mL nebulization of breath or wheezing soln budesonide 0.25 mg/2 mL suspension 0.25 mg inhalation BID 06/12/25 07/10/25 History for nebulization fluticasone propionate 50 1 spray intranasal DAILY 02/2707/11/25 History mcg/actuation nasal spray,suspension ipratropium bromide 21 mcg (0.03 2 spray intranasal TI D PRN 06/12/25 07/10/25 History %) nasal spray ALLERGIC RHINITIS nitroglycerin 0.4 mg sublingual 0.4 mg sublingual Q5M PRN chest 06/12/25 07/10/25 History tablet pain oxycodone 10 mg tablet 10 mg PO Q4H PRN pain 07/10/25 History tiotropium bromide 2.5 2 puff inhalation DAILY 02/2707/11/25 History mcg/actuation mist for inhalation (Spiriva Respimat) carvedilol 3.125 mg tablet 6.25 mg (2 x 3.125 mg) PO B ID #[id number] 06/23/25 07/10/25 Rx tabs magnesium oxide 400 mg (241.3 mg 800 mg (2 x 400 mg (2 41.3 mg 06/23/25 07/11/25 Rx magnesium) tablet magnesium)) PO DAILYWM #30 t abs mirtazapine 15 mg tablet 15 mg PO QPM #30 tabs 07/10/25 Rx Processed by: Pharmacy Medications reviewed in ED?: No Medication History completed: Yes Patient Interview: Completed Secondary Source(s): Pharmacy records and Insurance records [facility] Statement: As the person ultimately responsible for medication therapy, providers are able to order a medication from an existing home medication list in [facility] via the "Reconcile Routine" prior to Confirmation of that medication by technical support director. Such practice is discouraged except when the physician, in their clinical judgment, deems that a medical need exists for a medication without regard to previous use.
[2025-07-11] MEDS: ONDANSETRON 4 MG/2 ML VIAL IVP PRN (10:27)
[2025-07-11 11:20] LABS: ABG PH 7.49 (7.35-7.45)
[2025-07-11 11:21] LABS: ABG BASE EXCESS 19.3 mmol/L (-2.0-3.0); ABG HCO3 42.9 mmol/L (22.0-26.0); ABG OXYGEN SATURATION 100 % (95-98); ABG PCO2 56 mmHg (34-45); ABG PO2 142 mmHg (83-108)
[2025-07-11 11:23] LABS: ABG FRACTION OF INSPIRED O2 40.00
[2025-07-11 11:25] LABS: ABG TCO2 44.6 mmol/L (21.0-29.0)
--- NOTE | 2025-07-11 11:42 | PROVIDER PROGRESS NOTE ---
Current Medications Current Medications Current Medications: Current Medications Generic Name Dose Route Start Last Admin Trade Name Freq PRN Reason Stop Dose Admin Acetaminophen 650 mg 07/10/25 17:34 Acetaminophen 325 Mg Tablet PO Q4HR PRN Pain or Fever > 38C (100.4F) Albuterol/Ipratropium 3 ml 07/10/25 17:00 07/11/25 08:25 Ipratropium/Albuterol 3 Ml Neb INH 3 ml Q4HR ABRAHAM Administration Atorvastatin Calcium 40 mg 07/10/25 21:00 07/10/25 20:27 Atorvastatin 40 Mg Tablet PO 40 mg QPM ABRAHAM Administration Carvedilol 6.25 mg 07/10/25 21:00 07/11/25 09:05 Carvedilol 3.125 Mg Tablet PO 6.25 mg BID ABRAHAM Administration Clopidogrel Bisulfate 75 mg 07/11/25 09:00 07/11/25 09:05 Clopidogrel 75 Mg Tablet PO 75 mg DAILY ABRAHAM Administration Enoxaparin Sodium 30 mg 07/11/25 09:00 07/11/25 09:06 Enoxaparin 30 Mg/0.3 Ml Syringe SUBQ 30 mg DAILY ABRAHAM Administration Famotidine 20 mg 07/10/25 21:00 07/11/25 09:05 Famotidine 20 Mg Tablet PO 20 mg BID ABRAHAM Administration Sodium Chloride 1,000 mls @ 75 mls/hr 07/10/25 18:00 07/11/25 06:14 Normal Saline 0.9% IV 75 mls/hr .[id number] ABRAAHM Administration Lisinopril 40 mg 07/11/25 09:00 07/11/25 09:05 Lisinopril 20 Mg Tablet PO 40 mg DAILY ABRAHAM Administration Lorazepam 0.5 mg 07/10/25 17:07 07/11/25 04:48 Lorazepam 0.5 Mg Tablet PO 0.5 mg TID PRN Administration Anxiety Methylprednisolone 40 mg 07/10/25 22:00 07/11/25 05:00 Methylprednisolone Succinate 40 Mg/Ml Vial IVP 40 mg TID ABRAHAM Administration Mirtazapine 15 mg 07/10/25 21:00 07/10/25 20:27 Mirtazapine 15 Mg Tablet PO 15 mg QPM ABRAHAM Administration Ondansetron HCl 4 mg 07/11/25 09:04 Ondansetron Odt 4 Mg Tablet TL Q4HR PRN Nausea / Vomiting Ondansetron HCl 4 mg 07/11/25 09:04 07/11/25 10:27 Ondansetron 4 Mg/2 Ml Vial IVP 4 mg Q4HR PRN Administration Nausea / Vomiting Oxycodone HCl 5 mg 07/10/25 17:34 07/11/25 05:57 Oxycodone 5 Mg Tablet PO 5 mg Q4HR PRN Administration Moderate Pain (Level 4-6) Sodium Chloride 10 ml 07/10/25 17:00 07/11/25 09:15 Sodium Chloride Flush 0.9% 10 Ml Syringe IVP Not Given 0100,0900,1700 ABRAHAM Sodium Chloride 10 ml 07/10/25 16:34 Sodium Chloride Flush 0.9% 10 Ml Syringe IVP PRN PRN NEEDED PER PROVIDER ORDERS Objective Vital Signs/Intake & Output Vital Signs: Vital Signs x48h Temp Pulse Pulse Resp BP BP BP 07/11/25 11:00 79 20 129/64 07/11/25 10:25 07/11/25 10:00 92 25 H 119/66 07/11/25 09:00 90 36 H 169/86 H 07/11/25 08:31 102 H 39 H 07/11/25 08:17 90 07/11/25 08:00 91 29 H 175/70 H 07/11/25 08:00 91 29 H 175/70 H 07/11/25 07:00 07/11/25 07:00 100 40 H 150/60 H 07/11/25 07:00 88 33 H 150/60 H 07/11/25 06:30 93 27 H 149/97 H 07/11/25 06:00 94 30 H 149/97 H 07/11/25 06:00 99 30 H 149/97 H 07/11/25 05:40 103 H 32 H 156/64 H 07/11/25 05:35 99 34 H 138/80 H 07/11/25 05:35 138/80 H 07/11/25 05:30 97 34 H 146/71 H 07/11/25 05:30 146/71 H 07/11/25 05:25 96 33 H 168/107 H 07/11/25 05:25 167/107 H 07/11/25 05:22 94 30 H 184/88 H 07/11/25 05:20 93 31 H 185/87 H 07/11/25 05:20 184/88 H 07/11/25 05:15 174/112 H 07/11/25 05:10 91 32 H 174/112 H 07/11/25 05:03 95 32 H 186/88 H 07/11/25 05:00 93 37 H 178/76 H 07/11/25 05:00 90 33 H 186/88 H 07/11/25 04:58 96 32 H 175/99 H 07/11/25 04:00 99 35 H 164/67 H 07/11/25 04:00 36.7 C 87 34 H 164/67 H Pulse Ox O2 Flow Rate 07/11/25 11:00 100 07/11/25 10:25 4 07/11/25 10:00 98 07/11/25 09:00 90 L 4 07/11/25 08:31 07/11/25 08:17 07/11/25 08:00 95 07/11/25 08:00 95 45 07/11/25 07:00 45 07/11/25 07:00 96 07/11/25 07:00 92 45 07/11/25 06:30 96 45 07/11/25 06:00 07/11/25 06:00 98 45 07/11/25 05:40 97 07/11/25 05:35 97 07/11/25 05:35 07/11/25 05:30 97 07/11/25 05:30 07/11/25 05:25 97 07/11/25 05:25 07/11/25 05:22 98 07/11/25 05:20 98 07/11/25 05:20 07/11/25 05:15 07/11/25 05:10 97 07/11/25 05:03 88 L 07/11/25 05:00 95 07/11/25 05:00 95 45 07/11/25 04:58 98 07/11/25 04:00 93 07/11/25 04:00 95 45 Intake & Output: Intake & Output 07/08/25 07/09/25 07/10/25 07/11/25 23:59 23:59 23:59 23:59 Intake Total 1000 / 1000 1244 / 1244 Output Total 200 / 200 150 / 150 Balance 800 / 800 1094 / 1094 Weight (kg) 33.5 kg 35 kg Lab Results 07/10/25 12:52 07/11/25 04:22 Other Labs: Lab Results x24hrs 07/11/25 07/11/25 07/11/25 Range/Units 11:10 07:38 04:22 WBC (4.8-10.8) x10^3/uL RBC (4.20-5.40) 10^6/uL Hgb (12.0-16.0) g/dL Hct (37.0-47.0) % MCV (81.0-99.0) fL MCH (27.0-31.0) pg MCHC (32.0-36.0) g/dL RDW (12.0-15.0) % Plt Count (130-450) 10^3/uL MPV (7.9-10.8) fL Neut # (Auto) (1.5-6.6) 10^3/uL Lymph # (Auto) (1.5-3.5) 10^3/uL Swisher # (Auto) (0.0-1.0) 10^3/uL Eos # (Auto) (0.0-0.7) 10^3/uL Baso # (Auto) (0.0-0.1) 10^3/uL Absolute Nucleated RBC x10^3/uL Nucleated RBC % /100WBC D-Dimer (200.0-255.0) ng/mL Bld Gas Analysis Time 1114 0742 Sample Site RIGHT RADIAL RIGHT RADIAL ABG pH 7.49 H 7.47 H (7.35-7.45) ABG pCO2 56 H 62 H* (34-45) mmHg ABG pO2 142 H 52 L (83-108) mmHg ABG HCO3 42.9 H 45.3 H (22.0-26.0) mmol/L ABG Total CO2 44.6 H* 47.2 H* (21.0-29.0) mmol/L ABG O2 Saturation 100 H 83 L* (95-98) % ABG Base Excess 19.3 H 21.4 H (-2.0-3.0) mmol/L Manjit Test POSITIVE POSITIVE VBG pH (7.31-7.41) VBG pCO2 (41-51) mmHg VBG pO2 (25-47) mmHg VBG HCO3 (23-28) mmol/L VBG Total CO2 (24-29) mmol/L VBG O2 Saturation (60-80) % VBG Base Excess (-2 - +2) mmol/L O2 Delivery Device BiPAP NASAL CANNULA O2 Liters/Min 45.00 LPM FiO2 40.00 35.00 EPAP 4 cmH2O IPAP 10 cmH2O Sodium (135-145) mmol/L Potassium 3.2 L (3.5-4.5) mmol/L Chloride (101-111) mmol/L Carbon Dioxide (21-32) mmol/L Anion Gap BUN (6-20) mg/dL Creatinine (0.6-1.3) mg/dL Estimated GFR (MDRD) (>89) Glucose (74-104) mg/dL Lactic Acid (0.5-2.2) mmol/L Calcium (8.5-10.3) mg/dL Phosphorus 2.7 (2.5-5.0) mg/dL Magnesium 1.9 (1.7-2.3) mg/dL Total Bilirubin (0.2-1.0) mg/dL AST (10-42) IU/L ALT (10-60) IU/L Alkaline Phosphatase (42-121) IU/L Total Protein (6.4-8.9) g/dL Albumin (3.2-5.5) g/dL Globulin (2.1-4.2) g/dL Albumin/Globulin Ratio (1.0-2.2) Rijgd-9-Evwlpjetuhw (101-187) mg/dL Nasal Screen MRSA (PCR) (NEGATIVE) Stl C. diff Tox B Gene (NEGATIVE) 07/10/25 07/10/25 07/10/25 Range/Units 18:30 17:58 16:00 WBC (4.8-10.8) x10^3/uL RBC (4.20-5.40) 10^6/uL Hgb (12.0-16.0) g/dL Hct (37.0-47.0) % MCV (81.0-99.0) fL MCH (27.0-31.0) pg MCHC (32.0-36.0) g/dL RDW (12.0-15.0) % Plt Count (130-450) 10^3/uL MPV (7.9-10.8) fL Neut # (Auto) (1.5-6.6) 10^3/uL Lymph # (Auto) (1.5-3.5) 10^3/uL Swisher # (Auto) (0.0-1.0) 10^3/uL Eos # (Auto) (0.0-0.7) 10^3/uL Baso # (Auto) (0.0-0.1) 10^3/uL Absolute Nucleated RBC x10^3/uL Nucleated RBC % /100WBC D-Dimer < 200.0 L (200.0-255.0) ng/mL Bld Gas Analysis Time Sample Site ABG pH (7.35-7.45) ABG pCO2 (34-45) mmHg ABG pO2 (83-108) mmHg ABG HCO3 (22.0-26.0) mmol/L ABG Total CO2 (21.0-29.0) mmol/L ABG O2 Saturation (95-98) % ABG Base Excess (-2.0-3.0) mmol/L Manjit Test VBG pH (7.31-7.41) VBG pCO2 (41-51) mmHg VBG pO2 (25-47) mmHg VBG HCO3 (23-28) mmol/L VBG Total CO2 (24-29) mmol/L VBG O2 Saturation (60-80) % VBG Base Excess (-2 - +2) mmol/L O2 Delivery Device O2 Liters/Min LPM FiO2 EPAP cmH2O IPAP cmH2O Sodium (135-145) mmol/L Potassium (3.5-4.5) mmol/L Chloride (101-111) mmol/L Carbon Dioxide (21-32) mmol/L Anion Gap BUN (6-20) mg/dL Creatinine (0.6-1.3) mg/dL Estimated GFR (MDRD) (>89) Glucose (74-104) mg/dL Lactic Acid (0.5-2.2) mmol/L Calcium (8.5-10.3) mg/dL Phosphorus (2.5-5.0) mg/dL Magnesium (1.7-2.3) mg/dL Total Bilirubin (0.2-1.0) mg/dL AST (10-42) IU/L ALT (10-60) IU/L Alkaline Phosphatase (42-121) IU/L Total Protein (6.4-8.9) g/dL Albumin (3.2-5.5) g/dL Globulin (2.1-4.2) g/dL Albumin/Globulin Ratio (1.0-2.2) Tuqya-7-Yequydllwxh (101-187) mg/dL Nasal Screen MRSA (PCR) NEGATIVE (NEGATIVE) Stl C. diff Tox B Gene NEGATIVE (NEGATIVE) 07/10/25 Range/Units 12:52 WBC 5.4 (4.8-10.8) x10^3/uL RBC 4.25 (4.20-5.40) 10^6/uL Hgb 12.0 (12.0-16.0) g/dL Hct 37.3 (37.0-47.0) % MCV 87.8 (81.0-99.0) fL MCH 28.2 (27.0-31.0) pg MCHC 32.2 (32.0-36.0) g/dL RDW 13.6 (12.0-15.0) % Plt Count 321 (130-450) 10^3/uL MPV 9.2 (7.9-10.8) fL Neut # (Auto) 4.6 (1.5-6.6) 10^3/uL Lymph # (Auto) 0.5 L (1.5-3.5) 10^3/uL Swisher # (Auto) 0.3 (0.0-1.0) 10^3/uL Eos # (Auto) 0.0 (0.0-0.7) 10^3/uL Baso # (Auto) 0.0 (0.0-0.1) 10^3/uL Absolute Nucleated RBC 0.00 x10^3/uL Nucleated RBC % 0.0 /100WBC D-Dimer (200.0-255.0) ng/mL Bld Gas Analysis Time Sample Site ABG pH (7.35-7.45) ABG pCO2 (34-45) mmHg ABG pO2 (83-108) mmHg ABG HCO3 (22.0-26.0) mmol/L ABG Total CO2 (21.0-29.0) mmol/L ABG O2 Saturation (95-98) % ABG Base Excess (-2.0-3.0) mmol/L Manjit Test VBG pH 7.496 H (7.31-7.41) VBG pCO2 69.9 H (41-51) mmHg VBG pO2 99.2 H (25-47) mmHg VBG HCO3 54.5 H (23-28) mmol/L VBG Total CO2 56.6 H (24-29) mmol/L VBG O2 Saturation 100.0 H (60-80) % VBG Base Excess 31.0 H (-2 - +2) mmol/L O2 Delivery Device O2 Liters/Min LPM FiO2 EPAP cmH2O IPAP cmH2O Sodium 139 (135-145) mmol/L Potassium 3.3 L (3.5-4.5) mmol/L Chloride 89 L (101-111) mmol/L Carbon Dioxide > 45 H* (21-32) mmol/L Anion Gap TNP BUN 19 (6-20) mg/dL Creatinine 0.4 L (0.6-1.3) mg/dL Estimated GFR (MDRD) 159 (>89) Glucose 127 H (74-104) mg/dL Lactic Acid 0.5 (0.5-2.2) mmol/L Calcium 10.0 (8.5-10.3) mg/dL Phosphorus (2.5-5.0) mg/dL Magnesium 1.8 (1.7-2.3) mg/dL Total Bilirubin 1.7 H (0.2-1.0) mg/dL AST 18 (10-42) IU/L ALT 11 (10-60) IU/L Alkaline Phosphatase 57 (42-121) IU/L Total Protein 6.8 (6.4-8.9) g/dL Albumin 4.2 (3.2-5.5) g/dL Globulin 2.6 (2.1-4.2) g/dL Albumin/Globulin Ratio 1.6 (1.0-2.2) Qtfhh-3-Altezwxvzii 166 (101-187) mg/dL Nasal Screen MRSA (PCR) (NEGATIVE) Stl C. diff Tox B Gene (NEGATIVE) Assessment/Plan Problem List (1) Acute and chronic respiratory failure: Qualifiers: Respiratory failure complication: hypoxia and hypercapnia Qualified Code(s): J96.21 - Acute and chronic respiratory failure with hypoxia; J96.22 - Acute and chronic respiratory failure with hypercapnia (2) COPD (chronic obstructive pulmonary disease): Qualifiers: COPD type: emphysema Emphysema type: unspecified Qualified Code(s): J 43.9 - Emphysema, unspecified (3) Diarrhea: Qualifiers: Diarrhea type: unspecified type Qualified Code(s): R19.7 - Diarrhea, unspecified (4) Metabolic alkalosis with respiratory acidosis: (5) Protein calorie malnutrition: Qualifiers: Protein-calorie malnutrition severity: severe Qualified Code(s): E43 - Unspecified severe protein-calorie malnutrition (6) CAD (coronary artery disease): Qualifiers: Coronary Disease-Associated Artery/Lesion type: unspecified vessel or lesion type [place] vs. transplanted heart: [place] heart Associated angina: w ithout angina Qualified Code(s): I25.10 - Atherosclerotic heart disease of [place] coronary artery without angina pectoris
[2025-07-12 05:42] LABS: VBG PH 7.390 (7.31-7.41)
[2025-07-12 05:52] LABS: PHOSPHORUS 4.4 mg/dL (2.5-5.0)
[2025-07-12 06:08] LABS: ADENOVIRUS F 40/41 Not Detected (Not Detected); ASTROVIRUS Not Detected (Not Detected); C DIFFICILE TOXIN A/B Not Detected (Not Detected); CAMPYLOBACTER Not Detected (Not Detected); CRYPTOSPORIDIUM Not Detected (Not Detected); CYCLOSPORA CAYETANENSIS Not Detected (Not Detected); ENTAMOEBA HISTOLYTICA Not Detected (Not Detected); ENTEROAGGREGATIVE E COLI Not Detected (Not Detected); ENTEROPATHOGENIC E COLI Not Detected (Not Detected); ENTEROTOXIGENIC E COLI Not Detected (Not Detected); GIARDIA LAMBLIA Not Detected (Not Detected); NOROVIRUS GI/GII Not Detected (Not Detected); PLESIOMONAS SHIGELLOIDES Not Detected (Not Detected); ROTAVIRUS A Not Detected (Not Detected); SALMONELLA Not Detected (Not Detected); SAPOVIRUS Not Detected (Not Detected); SHIGA-TOXIN-PRODUCING E COLI Not Detected (Not Detected); SHIGELLA/ENTEROINVASIVE E COLI Not Detected (Not Detected); VIBRIO Not Detected (Not Detected); VIBRIO CHOLERAE Not Detected (Not Detected); YERSINIA ENTEROCOLITICA Not Detected (Not Detected)
[2025-07-12 06:19] LABS: HCT - HEMATOCRIT 35.4 % (37.0-47.0); HGB - HEMOGLOBIN 11.2 g/dL (12.0-16.0); MEAN PLATELET VOLUME 10.2 fL (7.9-10.8); PLT - PLATELET COUNT 330.0 10^3/uL (130-450); RED CELL DISTRIBUTION WIDTH 14.1 % (12.0-15.0)
[2025-07-12 06:47] LABS: BUN - BLOOD UREA NITROGEN 29.0 mg/dL (6-20); CARBON DIOXIDE - CO2 35.0 mmol/L (21-32); CREATININE 0.7 mg/dL (0.6-1.3); GFR - MDRD 83.0 (>89)
--- NOTE | 2025-07-12 07:46 | PROVIDER PROGRESS NOTE ---
Subjective Prog Note Date Prog Note Date: 07/12/25 Prog Note Time: 09:14 Subjective Pt reports feeling: Improved Subjective: Pt relates feeling improved today, and is able to sit up and eat in the chair with 3LMP via NC. Pt is alert and able to answer questions. She relates she still is hesitant to use BiPAP but is cognizant of how much it is helping her and seems to recognize that she will require it going forward. Current Medications Current Medications Current Medications: Current Medications Generic Name Dose Route Start Last Admin Trade Name Freq PRN Reason Stop Dose Admin Acetaminophen 650 mg 07/10/25 17:34 Acetaminophen 325 Mg Tablet PO Q4HR PRN Pain or Fever > 38C (100.4F) Albuterol/Ipratropium 3 ml 07/10/25 17:00 07/12/25 05:12 Ipratropium/Albuterol 3 Ml Neb INH 3 ml Q4HR ABRAHAM Administration Atorvastatin Calcium 40 mg 07/10/25 21:00 07/11/25 20:08 Atorvastatin 40 Mg Tablet PO 40 mg QPM ABRAHAM Administration Carvedilol 6.25 mg 07/10/25 21:00 07/11/25 20:07 Carvedilol 3.125 Mg Tablet PO 6.25 mg BID ABRAHAM Administration Clopidogrel Bisulfate 75 mg 07/11/25 09:00 07/11/25 09:05 Clopidogrel 75 Mg Tablet PO 75 mg DAILY ABRAHAM Administration Enoxaparin Sodium 30 mg 07/11/25 09:00 07/11/25 09:06 Enoxaparin 30 Mg/0.3 Ml Syringe SUBQ 30 mg DAILY ABRAHAM Administration Famotidine 20 mg 07/10/25 21:00 07/11/25 20:08 Famotidine 20 Mg Tablet PO 20 mg BID ABRAHAM Administration Sodium Chloride 1,000 mls @ 75 mls/hr 07/10/25 18:00 07/11/25 20:08 Normal Saline 0.9% IV 75 mls/hr .[id number] ABRAHAM Administration Lorazepam 0.5 mg 07/10/25 17:07 07/11/25 20:07 Lorazepam 0.5 Mg Tablet PO 0.5 mg TID PRN Administration Anxiety Methylprednisolone 40 mg 07/10/25 22:00 07/12/25 05:10 Methylprednisolone Succinate 40 Mg/Ml Vial IVP 40 mg TID ABRAHAM Administration Mirtazapine 15 mg 12/05/25 21:00 07/11/25 20:07 Mirtazapine 15 Mg Tablet PO 15 mg QPM ABRAHAM Administration Ondansetron HCl 4 mg 07/11/25 09:04 Ondansetron Odt 4 Mg Tablet TL Q4HR PRN Nausea / Vomiting Ondansetron HCl 4 mg 07/11/25 09:04 07/11/25 10:27 Ondansetron 4 Mg/2 Ml Vial IVP 4 mg Q4HR PRN Administration Nausea / Vomiting Oxycodone HCl 5 mg 07/10/25 17:34 07/11/25 05:57 Oxycodone 5 Mg Tablet PO 5 mg Q4HR PRN Administration Moderate Pain (Level 4-6) Sodium Chloride 10 ml 07/10/25 17:00 07/12/25 02:11 Sodium Chloride Flush 0.9% 10 Ml Syringe IVP 10 ml 0100,0900,1700 ABRAHAM Administration Sodium Chloride 10 ml 07/10/25 16:34 Sodium Chloride Flush 0.9% 10 Ml Syringe IVP PRN PRN NEEDED PER PROVIDER ORDERS Objective Vital Signs/Intake & Output Reviewed Vital Signs: Yes Vital Signs: Vital Signs x48h Temp Pulse Pulse Resp BP Pulse Ox O2 Flow Rate 07/12/25 07:00 87 31 H 103/54 L 96 4 07/12/25 06:00 88 29 H 102/56 L 96 4 07/12/25 05:15 88 24 4 07/12/25 05:00 94 26 H 128/67 98 4 07/12/25 04:42 4 07/12/25 04:31 93 4 07/12/25 04:00 83 26 H 133/72 H 90 L 3 07/12/25 03:00 87 25 H 90/55 L 91 L 3 07/12/25 02:00 85 26 H 110/60 91 L 3 07/12/25 01:00 37.0 C 85 27 H 122/66 91 L 3 07/12/25 00:40 25 H 91 L 3 07/12/25 00:00 86 22 95/52 L 94 4 Intake & Output: Intake & Output 07/09/25 07/10/25 07/11/25 07/12/25 23:59 23:59 23:59 23:59 Intake Total 1000 / 1000 2344 / 2344 Output Total 200 / 200 895 / 895 130 / 130 Balance 800 / 800 1449 / 1449 -130 / -130 Weight (kg) 33.5 kg 35 kg 35 kg Objective General Appearance: positive Alert and Mild distress Eyes Bilateral: positive Normal inspection Neck: positive Nml inspection Respiratory: positive Chest non-tender and Breath sounds nml; negative No respiratory distress (Still tachypneic, but breath sounds have normalized. Slight reduction in breath sounds in LL bilat. ) Cardiovascular: positive Regular rate & rhythm Abdomen: positive Non-tender and No distention Skin: positive Color nml and Warm Extremities: positive Non-tender and No pedal edema Neurologic/Psychiatric: positive Oriented x3 Lab Results 07/12/25 05:25 07/12/25 05:25 Other Labs: Lab Results x24hrs 07/12/25 07/11/25 07/11/25 Range/Units 05:25 11:10 07:38 WBC 9.2 (4.8-10.8) x10^3/uL RBC 3.91 L (4.20-5.40) 10^6/uL Hgb 11.2 L (12.0-16.0) g/dL Hct 35.4 L (37.0-47.0) % MCV 90.5 (81.0-99.0) fL MCH 28.6 (27.0-31.0) pg MCHC 31.6 L (32.0-36.0) g/dL RDW 14.1 (12.0-15.0) % Plt Count 330 (130-450) 10^3/uL MPV 10.2 (7.9-10.8) fL Bld Gas Analysis Time 1114 0742 Sample Site RIGHT RADIAL RIGHT RADIAL ABG pH 7.49 H 7.47 H (7.35-7.45) ABG pCO2 56 H 62 H* (34-45) mmHg ABG pO2 142 H 52 L (83-108) mmHg ABG HCO3 42.9 H 45.3 H (22.0-26.0) mmol/L ABG Total CO2 44.6 H* 47.2 H* (21.0-29.0) mmol/L ABG O2 Saturation 100 H 83 L* (95-98) % ABG Base Excess 19.3 H 21.4 H (-2.0-3.0) mmol/L Manjit Test POSITIVE POSITIVE VBG pH 7.390 (7.31-7.41) Ionized Calcium 1.23 (1.09-1.30) mmol/L O2 Delivery Device BiPAP NASAL CANNULA O2 Liters/Min 45.00 LPM FiO2 40.00 35.00 EPAP 4 cmH2O IPAP 10 cmH2O Sodium 138 (135-145) mmol/L Potassium 4.2 (3.5-4.5) mmol/L Chloride 100 L (101-111) mmol/L Carbon Dioxide 35 H (21-32) mmol/L Anion Gap 3.0 L (6-13) BUN 29 H (6-20) mg/dL Creatinine 0.7 (0.6-1.3) mg/dL Estimated GFR (MDRD) 83 L (>89) Glucose 120 H (74-104) mg/dL Calcium 9.1 (8.5-10.3) mg/dL Phosphorus 4.4 (2.5-5.0) mg/dL Magnesium 1.8 (1.7-2.3) mg/dL Recvs-8-Ysvzsvtpeyq (101-187) mg/dL Stl C. cayetanensis PCR (Not Detected) Stool Rotavirus A PCR (Not Detected) Stl Adenov F 40/41 PCR (Not Detected) Stool Astrovirus (PCR) (Not Detected) Stool Campylobacter PCR (Not Detected) Stl C. diff Tox A/B PCR (Not Detected) Stool Cryptosporidium PCR (Not Detected) Stl Sh Tox Pr E STEC PCR (Not Detected) Stool E coli O157 PCR (Not Detected) Stl Enterotoxigenic E PCR (Not Detected) Stool EPEC (PCR) (Not Detected) Stl E. histolytica PCR (Not Detected) Stool Giardia Lamblia PCR (Not Detected) Stl P. shigelloides PCR (Not Detected) Stool Salmonella PCR (Not Detected) Stool Sapovirus (PCR) (Not Detected) Stl Shigella/EIEC PCR (Not Detected) St Y.enterocolitica PCR (Not Detected) Stool Vibrio (PCR) (Not Detected) Stl Vibrio cholerae PCR (Not Detected) Stl Enteroaggr Ecoli PCR (Not Detected) Stl Norovirus GI/GII PCR (Not Detected) 12/05/25 12/05/25 Range/Units 18:30 12:52 WBC (4.8-10.8) x10^3/uL RBC (4.20-5.40) 10^6/uL Hgb (12.0-16.0) g/dL Hct (37.0-47.0) % MCV (81.0-99.0) fL MCH (27.0-31.0) pg MCHC (32.0-36.0) g/dL RDW (12.0-15.0) % Plt Count (130-450) 10^3/uL MPV (7.9-10.8) fL Bld Gas Analysis Time Sample Site ABG pH (7.35-7.45) ABG pCO2 (34-45) mmHg ABG pO2 (83-108) mmHg ABG HCO3 (22.0-26.0) mmol/L ABG Total CO2 (21.0-29.0) mmol/L ABG O2 Saturation (95-98) % ABG Base Excess (-2.0-3.0) mmol/L Manjit Test VBG pH (7.31-7.41) Ionized Calcium (1.09-1.30) mmol/L O2 Delivery Device O2 Liters/Min LPM FiO2 EPAP cmH2O IPAP cmH2O Sodium (135-145) mmol/L Potassium (3.5-4.5) mmol/L Chloride (101-111) mmol/L Carbon Dioxide (21-32) mmol/L Anion Gap (6-13) BUN (6-20) mg/dL Creatinine (0.6-1.3) mg/dL Estimated GFR (MDRD) (>89) Glucose (74-104) mg/dL Calcium (8.5-10.3) mg/dL Phosphorus (2.5-5.0) mg/dL Magnesium (1.7-2.3) mg/dL Ijmwe-3-Cyykdehkcag 166 (101-187) mg/dL Stl C. cayetanensis PCR Not Detected (Not Detected) Stool Rotavirus A PCR Not Detected (Not Detected) Stl Adenov F 40/41 PCR Not Detected (Not Detected) Stool Astrovirus (PCR) Not Detected (Not Detected) Stool Campylobacter PCR Not Detected (Not Detected) Stl C. diff Tox A/B PCR Not Detected (Not Detected) Stool Cryptosporidium PCR Not Detected (Not Detected) Stl Sh Tox Pr E STEC PCR Not Detected (Not Detected) Stool E coli O157 PCR Not applicable (Not Detected) Stl Enterotoxigenic E PCR Not Detected (Not Detected) Stool EPEC (PCR) Not Detected (Not Detected) Stl E. histolytica PCR Not Detected (Not Detected) Stool Giardia Lamblia PCR Not Detected (Not Detected) Stl P. shigelloides PCR Not Detected (Not Detected) Stool Salmonella PCR Not Detected (Not Detected) Stool Sapovirus (PCR) Not Detected (Not Detected) Stl Shigella/EIEC PCR Not Detected (Not Detected) St Y.enterocolitica PCR Not Detected (Not Detected) Stool Vibrio (PCR) Not Detected (Not Detected) Stl Vibrio cholerae PCR Not Detected (Not Detected) Stl Enteroaggr Ecoli PCR Not Detected (Not Detected) Stl Norovirus GI/GII PCR Not Detected (Not Detected) Diagnostic Imaging Diagnostic Imaging Results: positive Final report reviewed and Read independently Assessment/Plan Problem List (1) Acute and chronic respiratory failure: Qualifiers: Respiratory failure complication: hypoxia and hypercapnia Qualified Code(s): J96.21 - Acute and chronic respiratory failure with hypoxia; J96.22 - Acute and chronic respiratory failure with hypercapnia (2) COPD (chronic obstructive pulmonary disease): Impression: The following plan is for the above two assessments: Patient likely has end- stage COPD. She is chronically on 3 to 4 L of oxygen at home. She had an extended stay at her last visit, and was set up with a BiPAP at home. She has not been using the BiPAP because she gets claustrophobic with it. As a result, she has had increased work of breathing. She denies any cough, fevers or chills. She has noted some wheezing at home as well. Patient likely has end-stage COPD. Goals of care discussion was repeated during this visit, as it was during her last visit, and she remains full code. She is okay with the ventilator if it is a short-term attempt. Palliative care has been consulted, appreciate recommendations. Will continue to have conversation to this point during her course of stay. Continue scheduled DuoNebs. She remains on high flow, and has been started on BiPAP but is still very resistant to sustained BiPAP use. brought her home BiPAP setup. Continue serial vBGs. -Pt SPO2 remains stable today, alternating between 3LPM via NC and her home BiPAP setup, but remains tachypneic. -Per nursing staff, pt has been tolerating the BiPAP better through coaching from RT, nursing staff, . Notably, she has tolerated this without the PRN Ativan dose. Qualifiers: COPD type: emphysema Emphysema type: unspecified Qualified Code(s): J 43.9 - Emphysema, unspecified (3) Diarrhea: Qualifiers: Diarrhea type: unspecified type Qualified Code(s): R19.7 - Diarrhea, unspecified (4) Metabolic alkalosis with respiratory acidosis: Impression: The following plan is for the above two assessments: Patient's has a primary metabolic alkalosis with compensation with respiratory acidosis. She continues to have diarrhea at home, although she states it is much improved from when she was discharged. She completed her vancomycin course for her C. difficile colitis, repeat GI sample resulted yesterday which continued to show C. diff negativity. We will maintain monitoring for continuous loose stools and degree of fluid and electrolyte loss. Remainder of stool studies also negative. Continue gentle IV fluid rehydration, upt to 100mL/hr from 75mL/hr. Encourage p.o. intake and oral rehydration as well. Monitor for continued metabolic alkalosis and revisit potassium or other electrolytic repletion if needed; potassium remains stable today at 4.2. (5) Protein calorie malnutrition: Impression: Patient meets criteria for severe protein calorie malnutrition. Her states that she does not eat much at home. He is had to take her to the hospital before for poor appetite. Patient is now 33.3 kg (was 39 kg). Her BMI is 13.1. She is markedly reduced in her functional capacity due to her pulmonary function. Continue on Remeron 15 mg nightly, suspect this may have multiple benefits for the patient. Dietitian following, appreciate their recommendations. Qualifiers: Protein-calorie malnutrition severity: severe Qualified Code(s): E43 - Unspecified severe protein-calorie malnutrition (6) CAD (coronary artery disease): Impression: No recent outside records have been noted. Patient does state that she has CAD and had a stent placed in the last few years. Will continue her home medications which include atorvastatin, Plavix. Continue Coreg. She was hypotensive at last visit and amlodipine and lisinopril were discontinued on discharge. Lisinopril was restarted, but patient became hypotensive again; stopped. ECHO ordered and per radiology: LVEF 60-65% w/ preserved function, unk filling pressure. RV normal size, slightly inhibited RV function. Trace mitral, tricuspid, and pulmonic regurg; no aortic dysfn appreciated. Atria appear normal. Pulmonary artery pressure moderately incresed but normal RA pressures. Qualifiers: Associated angina: without angina Coronary Disease-Associated Artery/Lesion type: unspecified vessel or lesion type [place] vs. transplanted heart: [place] heart Qualified Code(s): I25.10 - Atherosclerotic heart disease of [place] coronary artery without angina pectoris (7) Urine retention: Impression: Pt had not been passing adequate urine yesterday, and nursing staff obtained a Parmar catheter and she was able to void adequately after a previous PVR of ~350mL. Since around midnight, her output is 250 ccL. We are continuing to encourage oral fluid intake and continuing crystalloids at 100ml/hr, at an increased heart rate. Will continue to assess for urinary complaints or changes.
--- OUTSIDE RECORDS SUMMARY | 2025-07-12 12:39 | EXTERNAL MEDICAL SUMMARY RPT | Encounter Summary ---
Author Organization [facility] Address [address] [place] [address] Care Team Providers Care Funeral Director'S Assistant Name Role Phone Silverio Lucero PA-C Primary Care Provider [phone] Reason for Visit * Reason Comments Outside Records Records -[facility] - 06/17/2025 Encounter Details Date Type Department Care Team ([facility] Contact Info) Description 06/18/2025 [facility] [address] [place] [address] Silverio Lucero PA-C [address] [place], [place] [phone] [facility] Social History Tobacco Use Types Packs/Day Years Used Date Smoking Tobacco: Former Cigarettes 0.5 9 0 01/05/2000 - 01/04/2009 Hookah Passive Smoke Exposure: Past Smokeless Tobacco: Never Alcohol Use Standard Drinks/Week Comments Not Currently 0 (1 standard drink = 0.6 oz pur e alcohol) Comments No Sex and Gender Information Value Date Recorded Sex Assigned at Not on file Legal Sex Female 12:58 PM PST Gender Identity Not on file Sexual Orientation Not on file documented as of this encounter Miscellaneous Notes * Telephone Encounter - Sherie Grigsby MA - 06/18/2025 8:25 AM PST Images from the original note were not included. * Telephone Encounter - Karena Steinberg - 06/18/2025 8:07 AM PST Reddy, The following record has been received: Record Located: Forwarded to provider via Rightfax folder Received from: [employer] DOS: 06/17/2025 Type of Record: Outside Chart Note Additional Information: Thank you. Bev Steinberg Patient Service Car Driver [facility] documented in this encounter Plan of Treatment Not on file documented as of this encounter Visit Diagnoses Not on filedocumented in this encounter Care Teams Funeral Director'S Assistant Relationship Specialty Start Date End Date Silverio Lucero PA-C [address] [place] [address] PCP - General 05/14/20 documented as of this encounter
--- OUTSIDE RECORDS SUMMARY | 2025-07-12 12:39 | EXTERNAL MEDICAL SUMMARY RPT | Encounter Summary ---
Author Organization [facility] Address [address] [place] [address] Care Team Providers Care Teacher Dramatics Name Role Phone Silverio Lucero PA-C Primary Care Provider [phone] Reason for Visit * Reason Comments Refill Request Encounter Details Date Type Department Care Team (Late st Contact Info) Description 08/23/2020 Refill [facility] [facility] [address] [place] [phone] Pam Momin MD Refill Request Social History Tobacco Use Types Packs/Day Years Used Date Smoking Tobacco: Former Cigarettes 0.5 9 0 01/05/2000 - 01/04/2009 Hookah Smokeless Tobacco: Never Comments No Sex and Gender Information Value Date Recorded Sex Assigned at Not on file Legal Sex Female 12:58 PM PST Gender Identity Not on file Sexual Orientation Not on file documented as of this encounter Miscellaneous Notes * Telephone Encounter - Elmer Foster [facility] - 08/24/2020 5:12 PM PSTSigned Prescriptions: Disp Refills albuterol (PROVENTIL HFA) 90 mcg/actuation*6.7 g 11 Sig: Inhale 2 puffs every 4 to 6 hours as needed for shortness of breath/wheezing Authorizing Provider: PAM MOMIN Ordering User: ELMER FOSTER * Telephone Encounter - Elmer Foster RPh - 08/24/2020 5:11 PM PST Refill request approved per Prescription Renewal Protocol. documented in this encounter Plan of Treatment Not on file documented as of this encounter Visit Diagnoses Diagnosis Chronic obstructive pulmonary disease, unspecified COPD type documented in this encounter Care Teams Teacher Dramatics Relationship Specialty Start Date End Date Silverio Lucero PA-C [address] [place] [address] PCP - General 05/14/20 documented as of this encounter
--- OUTSIDE RECORDS SUMMARY | 2025-07-12 12:39 | EXTERNAL MEDICAL SUMMARY RPT | Encounter Summary ---
Author Organization [facility] Address [address] [place] [address] Care Team Providers Care Kiln Charger Name Role Phone Silverio Lucero PA-C Primary Care Provider [phone] Encounter Details Date Type Department Care Team ([facility] Contact Info) Description 02/15/2024 Imaging Unsolicited Results [facility] [id number] [phone] [place] [address] [phone] Social History Tobacco Use Types Packs/Day Years Used Date Smoking Tobacco: Former Cigarettes 0.5 9 0 01/05/2000 - 01/04/2009 Hookah Smokeless Tobacco: Never Comments No Sex and Gender Information Value Date Recorded Sex Assigned at Not on file Legal Sex Female 12:58 PM PST Gender Identity Not on file Sexual Orientation Not on file documented as of this encounter Procedure Notes * David Onofre MD - 02/15/2024 3:52 PM PDTAssociated Order(s): ZIO PATCH MONITOR cc: ANA SILVA DATE OF INTERPRETATION: February 15, 2024 This is an 8-day Zio Patch event monitor ordered January 28, 2024, for concern of SVT. FINDINGS: The underlying rhythm is sinus rhythm. Heart rate range is from 61 to 98 beats per minute with an average of 76 beats per minute. There were rare PACs and PVCs. There were 5 nonsustained atrial runs lasting at the longest 24 beats or 11 seconds with an average rate of 130 beats per minute. There were no sustained tachyarrhythmias or bradyarrhythmias. There were 2 patient-triggered events and 4 diary events. The diary events were for symptoms of "light bubbly liquid pumping," heaviness, shortness of breath, palpitations, anxiety, dizziness, chest pain or no specific symptom given. One of these events occurred with an 11-second SVT run. The remainder occurred with sinus rhythm or artifact. CONCLUSIONS: Sinus rhythm with rare ectopy and rare nonsustained atrial runs lasting at the longest 11 seconds. Morphology suggests atrial tachycardia as a mechanism. There were no sustained arrhythmias detected. The patient's symptoms had some relationship with atrial runs but for the most part occurred with sinus rhythm or artifact. [email or web address] [id number] Dictated: 02/15/2024 3:52:25 PM David Onofre MD Transcribed:02/16/2024 4:02:35 AM Cardiology documented in this encounter Plan of Treatment Not on file documented as of this encounter Procedures Procedure Name Priority Date/Time Associated Diagnosis Comments ZIO PATCH MONITOR 02/15/2024 3:5 2 PM PDT documented in this encounter Results * ZIO PATCH MONITOR (02/15/2024 3:52 PM PDT) Narrative Procedure Note David Onofre MD - 02/15/2024 3:52 PM PDT cc: ANA SILVA DATE OF INTERPRETATION: February 15, 2024 This is an 8-day Zio Patch event monitor ordered January 28, 2024, for concern of SVT. FINDINGS: The underlying rhythm is sinus rhythm. Heart rate range is from 61 to 98 beats per minute with an average of 76 beats per minute. There were rare PACs and PVCs. There were 5 nonsustained atrial runs lasting at the longest 24 beats or 11 seconds with an average rate of 130 beats per minute. There were no sustained tachyarrhythmias or bradyarrhythmias. There were 2 patient-triggered events and 4 diary events. The diary events were for symptoms of "light bubbly liquid pumping," heaviness, shortness of breath, palpitations, anxiety, dizziness, chest pain or no specific symptom given. One of these events occurred with an 11-second SVT run. The remainder occurred with sinus rhythm or artifact. CONCLUSIONS: Sinus rhythm with rare ectopy and rare nonsustained atrial runs lasting at the longest 11 seconds. Morphology suggests atrial tachycardia as a mechanism. There were no sustained arrhythmias detected. The patient's symptoms had some relationship with atrial runs but for the most part occurred with sinus rhythm or artifact. [email or web address] [id number] Dictated: 02/15/2024 3:52:25 PM David Onofre MD Transcribed:02/16/2024 4:02:35 AM Cardiology David Onofre MD CARDIOLOGY PROCEDURE Fin al Result documented in this encounter Visit Diagnoses Not on filedocumented in this encounter Care Teams Kiln Charger Relationship Specialty Start Date End Date Silverio Lucero PA-C [facility] [place] [address] PCP - General 05/14/20 documented as of this encounter
--- OUTSIDE RECORDS SUMMARY | 2025-07-12 12:39 | EXTERNAL MEDICAL SUMMARY RPT | Encounter Summary ---
Author Organization [facility] Address [address] [place] [address] Care Team Providers Care Vice President [employer] Insights Name Role Phone Silverio Lucero PA-C Primary Care Provider [phone] Reason for Referral * DME/P&O (Routine) - Authorized Specialty Diagnoses / Procedures Referred By Contac t Referred To Contact Durable Medical Equipment Diagnoses Pulmonary emphysema, unspecified emphysema type Procedures REF DME OXYGEN PORTABLE OXYGEN CONCENTRATOR HOME VISIT RESPIRATORY THERAPY CARE Sarah Oliver MD [address] [facility] [id number] [place] [address] Phone: tel: fax: [address] [phone] Referral ID Status Reason Start Date Expiration Date Visits Requested Visits Authorized [id number] Authorized Provide DME/applian ce/Brace/matos pplies only 10/19/2022 10/20/2023 1 1 Encounter Details Date Type Department Care Team ([facility] st Contact Info) Description 10/19/2022 Orders Only [place] [facility] [address] [place] [phone] Sarah Oliver MD [address] [facility] [id number] [place], [place] [id number] Pulmonary emphysema, unspecified emphysema type (Primary Dx) Social History Tobacco Use Types Packs/Day Years Used Date Smoking Tobacco: Former Cigarettes 0.5 9 0 01/05/2000 - 01/04/2009 Hookah Smokeless Tobacco: Never Comments No Sex and Gender Information Value Date Recorded Sex Assigned at Not on file Legal Sex Female 12:58 PM PST Gender Identity Not on file Sexual Orientation Not on file documented as of this encounter Plan of Treatment Not on file documented as of this encounter Visit Diagnoses Diagnosis Pulmonary emphysema, unspecified emphysema type- Primary documented in this encounter Care Teams Vice President [employer] Relationship Specialty Start Date End Date Silverio Lucero PA-C [address] [place] [address] PCP - General 05/14/20 documented as of this encounter
--- OUTSIDE RECORDS SUMMARY | 2025-07-12 12:39 | EXTERNAL MEDICAL SUMMARY RPT | Encounter Summary ---
Author Organization [facility] Address [address] [place] [address] Care Team Providers Care Visitor Services Associate Name Role Phone Silverio Lucero PA-C Primary Care Provider [phone] Reason for Visit * Reason Comments Other Encounter Details Date Type Department Care Team ([facility] st Contact Info) Description 08/18/2021 Telephone [place] [facility] [place] [address] Tate Dunn MD Other Social History Tobacco Use Types Packs/Day Years [...] encounter Miscellaneous Notes * Telephone Encounter - Leanne Choi - 08/18/2021 2:37 PM PST Other -- Patient had upcomming appointment and got COVID. Patient would like to know what she should do as far as getting better? Please contact. Thank you. PCP: Silverio Lucero PA-C [facility] Additional Comments: N/A Best timeframe to call: Anytime OK to leave a detailed message: Yes OK to contact via [facility] member website: No Additional phone number: N/A documented in this encounter Plan of Treatment Not on file documented as of this encounter Visit Diagnoses Not on filedocumented in this encounter Care Teams Visitor Services Associate Relationship Specialty Start Date End Date Silverio Lucero PA-C [address] [place] [address] PCP - General 05/14/20 documented as of this encounter
--- OUTSIDE RECORDS SUMMARY | 2025-07-12 12:39 | EXTERNAL MEDICAL SUMMARY RPT | Encounter Summary ---
Author Organization [facility] Address [address] [place] [address] Care Team Providers Care Supervisor [employer]ension Warehouse Name Role Phone Silverio Lucero PA-C Primary Care Provider [phone] Reason for Visit * Reason Comments Advice Encounter Details Date Type Department Care Team ([facility] Contact Info) Description 12/19/2022 [facility] Telephone Encounter [facility] [address] [place] [address] Silverio Lucero PA-C [address] [place], [place] [phone] Advice Social History Tobacco Use Types Packs/Day Years [...] encounter Miscellaneous Notes * Telephone Encounter - Michelle Petersen - 12/28/2022 3:08 PM PDT Called patient informed Provider message- set PV with PCP discuss HCTZ meds. I mailed handicap formon 12/22. Thanks * Telephone Encounter - Silverio Lucero PA-C - 12/22/2022 2:37 PM PDT Please contact this pt and inquire as to why she feels the medication may need to be changed/increased. What is happening to make her think this. I will have a handicapped parking form mailed to her. Silverio Lucero PA-C * Telephone Encounter - Kimberly Perrin MA - 12/20/2022 8:26 AM PDT ACTION NEEDED (be specific): Please see TE below regarding HCTZ and increase in dosage,advise Disabled parking permit requested-please have your MA complete for provider to sign as this development writer unable to find a recent permit done a couple months ago. AFTER YOUR ADVICE OR ACTION, PLEASE ROUTE BACK TO: PANFILO Cotton to contact patient * Telephone Encounter - Madison Marr - 12/19/2022 4:59 PM PDT Reason for Call: Medication question History: Lois Medrano is a 67 year old patient who is calling to F/U on her hydroCHLOROthiazide medication & to check the status of her Disabled parking permit form which was sent 2 months ago. Additional Call Information Recommended Outcome: Follow instructions on grid above, if none, continue for other recommendations: Patient is calling for: Refill request, Change in quantity, transfer of Rx for existing patients, wrong Rx dispensed, status of pending, emergency supply, status of Rx: transfer to pharmacy Calling for Instructions: External Pharmacy calling on behalf of a member During Business Hours: Cold- friendly transfer to pharmacy contact center Hours of Operation: M-F 7:30am-7pm; Sat/Sun 8:30am-4pm Internal: [phone] Public: [phone] After Business Hours: Charge Nurse Routing: Always a warm transfer to [facility] Charge PARKING LOT SIGNALER RN (in [facility] Phone Book) Contacts - Incoming Call: Route TE to P PARKING LOT SIGNALER animal husbandry manager Contact Name: Name of caller Relationship: Select appropriate relationship from list Phone Number: Ask for CDS or Contact Number Comments: Reason for call Change priority to "High" Route to "P PARKING LOT SIGNALER POWER TONG OPERATOR" pool Medication Refill requests COT/Chronic Opioid Therapy "Is this request for Chronic Opioid Therapy (COT)"? If yes: "Have you already called in a refill to the pharmacy"? Is the refill request visible in Chart Review? If yes, re-route to [facility]. If no: Provide the below options in order 1. Quickest way is to send a message through your MyChart to request refill. 2. I can transfer you to the pharmacy for a refill request/ 3. I can send a message over to your care team ([facility]) 4. External Pharmacy - contact your pharmacy for refill. All other medications, including controlled substances (non-COT) refill requests: Suggested Scripting: "Have you already called in a refill to the pharmacy?" Is the refill request visible in Chart Review? If yes, re-route to [facility] based on location Pool. If no: Provide the below options in order 1. Quickest way is to send a message through your MyChart to request refill. 2. I can transfer you to the pharmacy for a refill request/ 3. I can send a message over to your care team ([facility]) 4. External Pharmacy - contact your pharmacy for refill. Member would like to transfer prescriptions to another pharmacy, advise member the followin. Have patient contact the pharmacy THEY WANT to sheepskin pickler at such as [facility], [facility], [facility], etc. 2. Patient needs to give that pharmacy: a. The phone number to the [facility] Contact Center b. Their name, date of , and [facility] member ID # c. The names of the prescription that needs to be transferred. 3. The outside pharmacy will contact us at the Pharmacy Contact Center for those prescriptions. Note: If member would like to transfer prescriptions from external pharmacy to [facility] pharmacy. Cold-friendly transfer to pharmacy contact center: Business Hours: M-F 7:30am-7pm; Sat/Sun 8:30am-4pm Internal: [phone] Public: [phone] Mail Order Includes connecting caller’s requesting emergency supply when visiting out of state (includes COT/Controlled Substances) Internal Transfer: [phone] External: or [phone] Hours of Operation: Sunday - Sunday 7:45am - 7:00pm Sat/Sun 7:45am - 4:30pm Pharmacy Benefit Questions Connect caller to [facility] Member Services at [phone] / or([phone]) "Our Member Services department can answer your questions. Would you like their phone number beforeI connect you?" For inquiries regarding: Updating a patient's stored credit card information. Ensuring [place] is set up with the correct coverage. Verifying the adjudication of benefits against coverage. Explaining the patient's out of pocket expense after adjudication. Helping explain the pre-auth holds. Transfer the patient to the RX Billing team at [phone] instead of the Pharmacy Contact Center. If patient is asking to speak to a clinical pharmacist Transfer the call to [phone]/ or ClinicalPharmacy Consult Note: RX Consult (in [facility] Phone Book) Specialty Pharmacy [facility] SP services specialty medications for any [facility] patient. Staff are available8:30am-5:00pm Sunday through Sunday (except for major holidays), toll-free at or [phone] Fax: . Was Member's reason for call resolved? Non-Appt Issue (TE to provider, Rx Refill, Referral Request,Covid Results/Testing, etc) Final Disposition: Sent a TE to Care Team/PARKING LOT SIGNALER/[facility] Do you need to send this TE to the Care Team? (if sending to PARKING LOT SIGNALER Charge, follow instructions above)Yes: Other: hydroCHLOROthiazide dose increase request PCP: Silverio Lucero PA-C [facility] Additional Comments: Patient would like to know if the dose of hydroCHLOROthiazide needs to be increased or change to something different. She also sent by mail her Disabled parking permit form but no one has reached out to let her know the status. Best timeframe to call: Any OK to leave a detailed message: Yes OK to contact via [facility] member website: No Additional phone number: No documented in this encounter Plan of Treatment Not on file documented as of this encounter Visit Diagnoses Not on filedocumented in this encounter Care Teams Supervisor [employer]ension Warehouse Relationship Specialty Start Date End Date Silverio Lucero PA-C [address] [place] [address] PCP - General 05/14/20 documented as of this encounter
--- OUTSIDE RECORDS SUMMARY | 2025-07-12 12:39 | EXTERNAL MEDICAL SUMMARY RPT | Encounter Summary ---
Author Organization [facility] Address [address] [place] [address] Care Team Providers Care Senior Corporate Recruiter Name Role Phone Silverio Lucero PA-C Primary Care Provider [phone] Reason for Visit * Reason Comments Message Center Call Encounter Details Date Type Department Care Team (Late st Contact Info) Description 06/08/2025 [facility] Telephone Encounter [facility] Urology [address] [place] [phone] Jagjit Arechiga MD [address] [place] [phone] Message Center Call Social History Tobacco Use Types Packs/Day Years [...] encounter Miscellaneous Notes * Telephone Encounter - Preeti Chisholm - 06/08/2025 12:30 PM PST Other: Oliverio Lucero- called because member had micro ablation done and there is a scan that needs to be ordered for f/u. Please review and submit order needed and contact member so they can getscheduled. Thank you. PCP: Silverio Lucero PA-C [facility] OK to leave a detailed message regarding clinical information: Yes (Patient has active MyChart) Additional Comments: No If speaking with external facility, ask for fax number: documented in this encounter Plan of Treatment Not on file documented as of this encounter Visit Diagnoses Not on filedocumented in this encounter Care Teams Senior Corporate Recruiter Relationship Specialty Start Date End Date Silverio Lucero PA-C [address] [place] [address] PCP - General 05/14/20 documented as of this encounter
--- OUTSIDE RECORDS SUMMARY | 2025-07-12 12:39 | EXTERNAL MEDICAL SUMMARY RPT | Encounter Summary ---
Author Organization [facility] Address [address] [place] [address] Care Team Providers Care Offal Trimmer Name Role Phone Silverio Lucero PA-C Primary Care Provider [phone] Reason for Visit * Reason Comments Care Coordination Encounter Details Date Type Department Care Team ([facility] st Contact Info) Description 08/03/2022 [facility] Telephone Encounter [facility] [address] [place] [address] Kera Floyd LPN [address] [place] [address] Care Coordination Social History Tobacco Use Types Packs/Day Years [...] encounter Miscellaneous Notes * Telephone Encounter - Kera Floyd LPN - 08/04/2022 12:24 PM PST FYI ONLY - Please done from your inbox and/or close encounter after review Two identifiers used to confirm patient identity: name and Called and spoke with patient, who requested that this LN speak with partner, Oliverio regarding her healthcare. Spoke with Oliverio to assist with scheduling a hospital follow up. Offered in-person followup as it would be helpful to get current vitals and listen to pt's lungs. Oliverio states that he is unable to transport patient to . He adds "I cannot personally bring her in." Offered VV or PV. He agreed to PV. Oliverio states that it would be helpful to have someone come to the home. Explained that a HH or medical call referral can be placed during 08/09 PV, if that's what the provider feels is appropriate. Oliverio states that pt has used [facility] in the past, but it was for OT/PT. Explained that if HH is ordered, they will come to pt's home for assessment and identify needs based on pt's current status (PT, OT, PUNCH PRESS OPERATOR HELPER, RN, AERODYNAMIC CONSULTANT, BA, etc.). Oliverio then became upset, raising voice and stating that this process is "broken and idiotic." It was not clear to this LN why Oliverio became so upset as he stated that HH or a medical call would be helpful. He reiterated that "the process is stupid! I'm not calling you stupid, but this process is stupid!" He states "I will wait for the call on 08/09" and Oliverio ended call. * Telephone Encounter - Kathy Jc - 08/03/2022 3:04 PM PST Reddy, [facility] has made 3 attempts to schedule a hospital follow-up appointmentbut have been unsuccessful due to no access. The hospital stay information is below: Hospital: Replaced By [facility] / Discharge: 08/01/22 / Reason: Acute respiratory failure with hypoxia, COPD with exacerbation / Appt needed by 08/08/22 Thank you documented in this encounter Plan of Treatment Not on file documented as of this encounter Visit Diagnoses Not on filedocumented in this encounter Care Teams Offal Trimmer Relationship Specialty Start Date End Date Silverio Lucero PA-C [address] [place] [address] PCP - General 05/14/20 documented as of this encounter
--- OUTSIDE RECORDS SUMMARY | 2025-07-12 12:39 | EXTERNAL MEDICAL SUMMARY RPT | Encounter Summary ---
Author Organization [facility] Address [address] [place] [address] Care Team Providers Care Human Resources Representative Name Role Phone Silverio Lucero PA-C Primary Care Provider [phone] Reason for Visit * Reason Comments Hospital Discharge Note Encounter Details Date Type Department Care Team (Latest Contact Info) Description 08/02/2022 Notes Encounter (No LOS) Care Management [address] [place] [id number] Mayte Montes, RN [address] [place] [phone] Hospital Discharge Note Social History Tobacco Use Types Packs/Day Years [...] on filedocumented in this encounter Care Teams Human Resources Representative Relationship Specialty Start Date End Date Silverio Lucero PA-C [facility] [place] [address] PCP - General 05/14/20 documented as of this encounter
--- OUTSIDE RECORDS SUMMARY | 2025-07-12 12:39 | EXTERNAL MEDICAL SUMMARY RPT | Encounter Summary ---
Author Organization [facility] Address [address] [place] [address] Care Team Providers Care Clinical Mental Health Counselor Name Role Phone Silverio Lucero PA-C Primary Care Provider [phone] Reason for Referral * DME/P&O (Routine) - Authorized Specialty Diagnoses / Procedures Referred By Contac t Referred To Contact Durable Medical Equipment Diagnoses COPD with asthma Procedures REF DME OXYGEN OXYGEN CONCENTRATOR HOME VISIT [facility] [address] [address] Phone: tel: fax: [address] [address] Referral ID Status Reason Start Date Expiration Date Visits Requested Visits Authorized [id number] Authorized Provide DME/applian ce/Brace/matos pplies only 06/09/2025 06/11/2026 [facility] Reason for Visit * Reason Comments Referral Encounter Details Date Type Department Care Team (Late st Contact Info) Description 06/08/2025 [facility] Telephone Encounter [facility] [place] [address] Juhi Shell, RN [address] [place] [address] Referral Social History Tobacco Use Types Packs/Day Years [...] encounter Miscellaneous Notes * Telephone Encounter - Lesly Astudillo - 06/09/2025 5:05 PM PST Referral for O2 concentrator has been placed. Will fax to [employer] once authorized. * Telephone Encounter - Da Silva RN - 06/09/2025 4:42 PM PST Lois Medrano contacted as requested. Id verified using 2 patient identifiers full name/. Pt requested I speak with her , Oliverio. Oliverio states that he does not think that the Oxygen is putting out the right flow of oxygen. He didtry to fix the meter and it seems to be working but possible the wrong flow. Also noticed when he attached water bottle for humidity the other day the oxygen was not enough to bubble through the bottle and sats dropped to 70's. He took the water off and and sats are in the low to mid 90's. Would like to have the oxygen concentrator worked on. Pt called [employer] and then do not have her in their system. Last referral on 01/17/[address] Nasir Cohen in pulmonary. Msg to pulmonary for updated order. MARVIN Hinojosa, RN * Telephone Encounter - Juhi Shell RN - 06/08/2025 4:24 PM PST Images from the original note were not included. TEAM A ACTION NEEDED (be specific): Please review and advise on oxygen concentrator in need of repair or replacement. Action Completed: When was this issue was last addressed? (Include link to relevant encounter): Referral to Durable Medical Equipment for COPD with asthma (01/17/2024) [facility] [address] [facility] [id number] Future f/u appointments: No future appointments. AFTER YOUR ADVICE OR ACTION, PLEASE: Return to Clinic Staff to NOTIFY PATIENT Juhi Shell, RN * Telephone Encounter - Tere Whitlock - 06/08/2025 3:59 PM PST Other: [employer] concerns / Follow up PCP: Silverio Lucero PA-C [facility] [place] to leave a detailed message regarding clinical information: Yes (Patient verbally authorized) Additional Comments: Oliverio [] is calling on behalf of his , because of her oxygen machine. They mentioned that they cannot find her into their system, and she is needing help with getting a new oxygen or calibrated. No one is assisting her in this concern. Please assist, at your earliest convince at [phone]. If speaking with external facility, ask for fax number: N/A Referral: Route TE to [facility] Is this for a DME or Specialty Referral? DME: Oxygen generator Status: Update and New A referral is being requested for an external referral. Name of specialty: DME Specific Vendor requested: [employer] Type of Medical Equipment: Oxygen Generator Symptom or Diagnosis: Old oxygen generator is falling apart and needing a new one Have you previously been seen for this or discussed this with your PCP?Yes: When was your last related visit/hospital admission? 2024 Referred by: Primary Care Silverio Lucero PA-C [facility] PCP: Silverio Lucero PA-C [place] to leave a detailed message regarding clinical information: Yes (Patient verbally authorized) Additional Comments: Needing this as soon as possible: DME If speaking with external facility, ask for fax number: N/A documented in this encounter Plan of Treatment Not on file documented as of this encounter Visit Diagnoses Diagnosis COPD with asthma- Primary Chronic obstructive asthma, unspecified documented in this encounter Care Teams Clinical Mental Health Counselor Relationship Specialty Start Date End Date Silverio Lucero PA-C [address] [place] [address] PCP - General 05/14/20 documented as of this encounter
--- OUTSIDE RECORDS SUMMARY | 2025-07-12 12:39 | EXTERNAL MEDICAL SUMMARY RPT | Encounter Summary ---
Author Organization [facility] Address [address] [place] [address] Care Team Providers Care Computer Aided Design Technician Name Role Phone Silverio Lucero PA-C Primary Care Provider [phone] Reason for Referral * Radiology (Routine) - Closed Specialty Diagnoses / Procedures Referred By Contac t Referred To Contact Radiology Diagnoses Chronic bilateral low back pain, unspecified whether sciatica present Procedures REF RADIOLOGY MRI LUMBAR W/WO CONTRST SPINE Jacques Shipman MD [facility] [address] [place] [address] Phone: tel: [facility] [address] [place] [address] Referral ID Status Reason Start Date Expiration Date V isits Requested Visits Authorized [id number] Closed Itemized Services 05/09/2021 08/07/2021 1 1 Encounter Details Date Type Department Care Team (Late st Contact Info) Description 05/09/2021 Community Orders Non [facility] Provider Jacques Shipman MD [facility] [address] [place] [address] Chronic bilateral low back pain, unspecified whether sciatica present (Primary Dx) Social History Tobacco Use Types [...] of this encounter Visit Diagnoses Diagnosis Chronic bilateral low back pain, unspecified whether sciatica present- Primary documented in this encounter Care Teams Computer Aided Design Technician Relationship Specialty Start Date End Date Silverio Lucero, JENNIFER [address] [place] [address] PCP - General 05/14/20 documented as of this encounter
--- OUTSIDE RECORDS SUMMARY | 2025-07-12 12:39 | EXTERNAL MEDICAL SUMMARY RPT | Encounter Summary ---
Author Organization [facility] Address [address] [place] [address] Care Team Providers Care Registered Vascular Technologist (Rvt) Name Role Phone Silverio Lucero PA-C Primary Care Provider [phone] Encounter Details Date Type Department Care Team ([facility] Contact Info) Description 07/21/2021 [facility] [address] [place] [phone] Phan Mccollum MD [address] [place] [address] Social History Tobacco Use Types Packs/Day Years [...] on filedocumented in this encounter Care Teams Registered Vascular Technologist (Rvt) Relationship Specialty Start Date End Date Silverio Lucero PA-C [address] [place], [place] [id number] PCP - General 05/14/20 documented as of this encounter
--- OUTSIDE RECORDS SUMMARY | 2025-07-12 12:39 | EXTERNAL MEDICAL SUMMARY RPT | Encounter Summary ---
Author Organization [facility] Address [address] [place] [address] Care Team Providers Care Graduate Recruiter Name Role Phone Silverio Lucero PA-C Primary Care Provider [phone] Encounter Details Date Type Department Care Team ([facility] Contact Info) Description 06/03/[facility] Tele[facility] Encounter Primary Care Appointing Center Unspecified Social History Tobacco Use Types Packs/Day Years [...] encounter Miscellaneous Notes * Telephone Encounter - Marian Barnes - 06/03/2024 1:33 PM PDT Other: Patient was in the ER at [facility]. PCP: Silverio Lucero PA-C [facility] OK to leave a detailed message regarding clinical information: Yes (Patient has active MyChart) Additional Comments: They found a mass in her lung and she would like to talk to Silverio Lucero about this. If speaking with external facility, ask for fax number: none documented in this encounter Plan of Treatment Not on file documented as of this encounter Visit Diagnoses Not on filedocumented in this encounter Care Teams Graduate Recruiter Relationship Specialty Start Date End Date Silverio Lucero PA-C [facility] [place] [address] PCP - General 05/14/20 documented as of this encounter
--- OUTSIDE RECORDS SUMMARY | 2025-07-12 12:39 | EXTERNAL MEDICAL SUMMARY RPT | Encounter Summary ---
Author Organization [facility] Address [address] [place] [address] Care Team Providers Care Corporate Administrative Assistant Name Role Phone Silverio Lucero PA-C Primary Care Provider [phone] Reason for Visit * Reason Comments Form Completion Form - DME order - [facility] Encounter Details Date Type Department Care Team ([facility] st Contact Info) Description 06/18/2025 [facility] [address] [place] [address] Silverio Lucero PA-C [address] [place], [place] [phone] Form Completion ([facility] - [facility] Social History Tobacco Use Types Packs/Day Years [...] encounter Miscellaneous Notes * Telephone Encounter - Kathi Pereyra MA - 06/19/2025 10:52 AM PST Images from the original note were not included. * Telephone Encounter - Karena Steinberg - 06/18/2025 12:01 PM PST Reddy, The following form has been received via Fax Requester (example: name of employer/insurance company): [employer] DME Form (example: title of form/ APS): DME order Intake and/or JOHN: No Delivery preference: Fax Sent to provider's rightfax folder Thank you. Bev Steinberg Patient Refractory Specialist [facility] documented in this encounter Plan of Treatment Not on file documented as of this encounter Visit Diagnoses Not on filedocumented in this encounter Care Teams Corporate Administrative Assistant Relationship Specialty Start Date End Date Silverio Lucero PA-C [address] [place] [address] PCP - General 05/14/20 documented as of this encounter
--- OUTSIDE RECORDS SUMMARY | 2025-07-12 12:39 | EXTERNAL MEDICAL SUMMARY RPT | Encounter Summary ---
Author Organization [facility] Address [address] [place] [address] Care Team Providers Care Private Equity Analyst Name Role Phone Silverio Lucero PA-C Primary Care Provider [phone] Reason for Visit * Reason Comments Lab/test Results Outside Doppler Test Results Encounter Details Date Type Department Care Team (Latest Contact Info) Description 02/15/2024 Notes Encounter (No LOS) [facility] [address] [phone] [place] [address] [phone] Lab/test Results (Outside Doppler Test Results) Social History Tobacco Use Types Packs/Day Years [...] on filedocumented in this encounter Care Teams Private Equity Analyst Relationship Specialty Start Date End Date Silverio Lucero PA-C [address] [place], [place] [phone] PCP - General 05/14/20 documented as of this encounter
--- OUTSIDE RECORDS SUMMARY | 2025-07-12 12:39 | EXTERNAL MEDICAL SUMMARY RPT | Encounter Summary ---
Author Organization [facility] Address [address] [place] [address] Care Team Providers Care Senior Investment Manager Name Role Phone Silverio Lucero PA-C Primary Care Provider [phone] Encounter Details Date Type Department Care Team ([facility] st Contact Info) Description 01/23/2024 Telephone Mail Order Pharmacy [address] [place] [address] Herlinda Palacio, [facility] [address] [place] [address] Social History Tobacco Use Types Packs/Day Years [...] encounter Miscellaneous Notes * Telephone Encounter - Herlinda Palacio PhT - 01/23/2024 10:18 AM PDT [facility] LEFT MESSAGE FOR PATIENT - NOTE FOR PCC: Thank you, , We partner with your care team to support your health. I have a message that you are due for a refill of Atorvastatin. May I refill that for you today? Encourage a 90-day supply. Outbound call made to offer refill of Atorvastatin to support or maintain good medication adherence. Please direct patient call backs to [facility] pharmacy adherence team . UNABLE TO REACH NOTE: Interview Medication Adherence Review No answer/hung up documented in this encounter Plan of Treatment Not on file documented as of this encounter Visit Diagnoses Not on filedocumented in this encounter Care Teams Senior Investment Manager Relationship Specialty Start Date End Date Silverio Lucero PA-C [address] [place] [address] PCP - General 05/14/20 documented as of this encounter
--- OUTSIDE RECORDS SUMMARY | 2025-07-12 12:39 | EXTERNAL MEDICAL SUMMARY RPT | Clinical Summary ---
Author Organization Unknown Care Team Providers Care Pipe And Boiler Covers Supervisor Name Role Phone JOSE CACERES, PERRY Unavailable Unavailable ATTWOOD OT, ERMA Unavailable Unavailable IRA ART APPRAISER, DANITZA Unavailable Unavailable TAQUERIA ST, RADHA Unavailable Unavailable CORY PT, LETY Unavailable Unavailable [facility] CASHIER, SEFERINO Unavailable Unavailable MANE RN, DARREN Unavailable Unavailable KARSTEN DAWNN, PHILLY Unavailable Unavailabl e Payers Payer Name Policy Type Policy Number Effective Date Expira tion Date [facility] [id number] Problems Condition Name Condition Details Condition Category Status Onset Date Resolution Date Last Treatment Date Treating Clinician Comments EMPHYSEMA, UNSPECIFIED Active 2024-08 00:00: 00 ACUTE AND CHRONIC RESPIRATORY FAILURE WITH HYPOXIA Active 2024-08 00:00: 00 ACUTE AND CHRONIC RESPIRATORY FAILURE WITH HYPERCAPNIA Active 2024-08 00:00: 00 ENTEROCOLITI S D/T CLOSTRIDIUM DIFFICILE, NOT SPCF RECUR Active 2024-08 00:00: 00 UNSPECIFIED PROTEIN-KAY VERONICA MALNUTRITION Active 2024-08 00:00: 00 ATHSCL HEART DISEASE OF [place] CORONARY ARTERY W/O ANG PCTRS Active 2024-08 00:00: 00 ANXIETY DISORDER, UNSPECIFIED Active 2024-08 00:00: 00 ESSENTIAL (PRIMARY) HYPERTENSION Active 2024-08 00:00: 00 HYPERLIPIDEM IA, UNSPECIFIED Active 2024-08 00:00: 00 CHRONIC PAIN SYNDROME Active 2024-08 00:00: 00 METABOLIC ENCEPHALOPAT HY Active 2024-08 00:00: 00 MIXED DISORDER OF ACID-BASE BALANCE Active 2024-08 00:00: 00 RETENTION OF URINE, UNSPECIFIED Active 2024-08 00:00: 00 BODY MASS INDEX [BMI] 19.9 OR LESS, ADULT Active 2024-08 00:00: 00 PERSONAL HISTORY OF NICOTINE DEPENDENCE Active 2024-08 00:00: 00 PRESENCE OF CORONARY ANGIOPLASTY IMPLANT AND GRAFT Active 2024-08 00:00: 00 ACQUIRED ABSENCE OF OTHER SPECIFIED PARTS OF DIGESTIVE TRACT Active 2024-08 00:00: 00 ACQUIRED ABSENCE OF OTHER ORGANS Active 2024-08 00:00: 00 ACQUIRED ABSENCE OF BOTH CERVIX AND UTERUS Active 2024-08 00:00: 00 DEPENDENCE ON SUPPLEMENTAL OXYGEN Active 2024-08 00:00: 00 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 ICS/ANTIPLAT ELETS Active 2024-08 00:00: 00 HISTORY OF FALLING Active 2024-08 00:00: 00 Allergies, Adverse Reactions, Alerts Allergy Name Allergy Type Status Severity Reaction(s) Onset Date Inactive Date Treating Clinician Comments CODEINE (ITCHING) Propensity to adverse reactions Active 2025-06 09:23:2 3 MORPHINE , Propensity to adverse reactions Active 2025-06 09:23:4 0 SULFAS Propensity to adverse reactions Active 2025-06 09:24:3 4 Vital Signs Vital Name Observation Time Observation Value Commen ts Temperature 2025-07-01 09:51:00.000 97.8 [degF] BMI (%) 2025-07-01 10:00:00.000 15 kg/m2 Height 2025-07-01 09:51:00.000 60 [in_us] Pulse 2025-07-01 09:51:00.000 98 /min O2 Saturation (%) 2025-07-01 09:51:00.000 96 % Respirations 2025-07-01 09:51:00.000 18 /min Weight (lbs) 2025-07-01 10:00:00.000 80 [lb_av] Systolic Blood Pressure 2025-07-01 09:51:00.000 106 mm [Hg] Diastolic Blood Pressure 2025-07-01 09:51:00.000 56 mm [Hg] Plan of Treatment Planned Activity Planned Date Details Comments Future Scheduled Test SKILLED NU RSE TO PROVIDE OBSERVATION/ ASSESSMENT AND TEACHING/REINFORCEMENT OF HYPERTENSION MANAGEMENT. [code = SKILLED NURSE TO PROVIDE OBSERVATION/ ASSESSMENT AND TEACHING/REINFORCEMENT OF HYPERTENSION MANAGEMENT.] Future Scheduled Test SKILLED NU RSE TO OBSERVE AND ASSESS RESPIRATORY SYSTEM TO IDENTIFY CHANGES AND INTERVENE TO MINIMIZE COMPLICATIONS. SKILLED NURSE TO PROVIDE SKILLED TEACHING RELATED TO ALTERED RESPIRATORY STATUS INCLUDING PATHOPHYSIOLOGY, NUTRITION, MEDICATION REGIMEN, AND PERMITTED ACTIVITIES. [code = SKILLED NURSE TO OBSERVE AND ASSESS RESPIRATORY SYSTEM TO IDENTIFY CHANGES AND INTERVENE TO MINIMIZE COMPLICATIONS. SKILLED NURSE TO PROVIDE SKILLED TEACHING RELATED TO ALTERED RESPIRATORY STATUS INCLUDING PATHOPHYSIOLOGY, NUTRITION, MEDICATION REGIMEN, AND PERMITTED ACTIVITIES.] Future Scheduled Test SKILLED NU RSE FOR OBSERVATION / ASSESSMENT OF PATIENT'S IMPAIRED NUTRITION. INSTRUCT PATIENT / CAREGIVER ON INTERVENTIONS DESIGNED TO IMPROVE NUTRITIONAL INTAKE AND PATIENT WELL BEING. [code = SKILLED NURSE FOR OBSERVATION / ASSESSMENT OF PATIENT'S IMPAIRED NUTRITION. INSTRUCT PATIENT / CAREGIVER ON INTERVENTIONS DESIGNED TO IMPROVE NUTRITIONAL INTAKE AND PATIENT WELL BEING.] Future Scheduled Test SKILLED NU RSE TO ASSESS INTEGUMENTARY STATUS TO IDENTIFY CHANGES AND INTERVENE TO MINIMIZE COMPLICATIONS. SKILLED NURSE TO PROVIDE SKILLED TEACHING RELATED TO ALTERED SKIN INTEGRITY INCLUDING PATHOPHYSIOLOGY, NUTRITION, MEDICATION REGIMEN, AND METHODS TO PREVENT PRESSURE ULCERS. [code = SKILLED NURSE TO ASSESS INTEGUMENTARY STATUS TO IDENTIFY CHANGES AND INTERVENE TO MINIMIZE COMPLICATIONS. SKILLED NURSE TO PROVIDE SKILLED TEACHING RELATED TO ALTERED SKIN INTEGRITY INCLUDING PATHOPHYSIOLOGY, NUTRITION, MEDICATION REGIMEN, AND METHODS TO PREVENT PRESSURE ULCERS.] Future Scheduled Test SKILLED NU RSE TO PERFORM MULTIFACTOR FALL RISK ASSESSMENT AND IMPLEMENT INTERVENTIONS TO DECREASE RISK OF FALLS. SKILLED NURSE TO INSTRUCT ON HOME SAFETY, IMPACT OF POLYPHARMACY, ENVIRONMENTAL SAFETY, AND FALL PREVENTION. [code = SKILLED NURSE TO PERFORM MULTIFACTOR FALL RISK ASSESSMENT AND IMPLEMENT INTERVENTIONS TO DECREASE RISK OF FALLS. SKILLED NURSE TO INSTRUCT ON HOME SAFETY, IMPACT OF POLYPHARMACY, ENVIRONMENTAL SAFETY, AND FALL PREVENTION.] Future Scheduled Test SKILLED NU RSE TO EVALUATE AND DEVELOP PLAN OF CARE TO BE COUNTERSIGNED BY PHYSICIAN. SKILLED NURSE TO ASSESS/EVALUATE CO-MORBID CONDITIONS INCLUDING AND OTHER CONDITIONS THAT PRESENT THEMSELVES DURING THE COURSE OF THIS EPISODE TO IDENTIFY CHANGES AND INTERVENE TO MINIMIZE COMPLICATIONS. [code = SKILLED NURSE TO EVALUATE AND DEVELOP PLAN OF CARE TO BE COUNTERSIGNED BY PHYSICIAN. SKILLED NURSE TO ASSESS/EVALUATE CO-MORBID CONDITIONS INCLUDING AND OTHER CONDITIONS THAT PRESENT THEMSELVES DURING THE COURSE OF THIS EPISODE TO IDENTIFY CHANGES AND INTERVENE TO MINIMIZE COMPLICATIONS.] Future Scheduled Test SKILLED NU RSE TO OBSERVE AND ASSESS CARDIOVASCULAR SYSTEM TO IDENTIFY CHANGES AND INTERVENE TO MINIMIZE COMPLICATIONS. SKILLED NURSE TO PROVIDE SKILLED TEACHING RELATED TO ALTERED CARDIOVASCULAR STATUS INCLUDING PATHOPHYSIOLOGY, NUTRITION, MEDICATION REGIMEN AND PERMITTED ACTIVITIES. [code = SKILLED NURSE TO OBSERVE AND ASSESS CARDIOVASCULAR SYSTEM TO IDENTIFY CHANGES AND INTERVENE TO MINIMIZE COMPLICATIONS. SKILLED NURSE TO PROVIDE SKILLED TEACHING RELATED TO ALTERED CARDIOVASCULAR STATUS INCLUDING PATHOPHYSIOLOGY, NUTRITION, MEDICATION REGIMEN AND PERMITTED ACTIVITIES.] Future Scheduled Test SKILLED NU RSE TO INSTRUCT PATIENT/CAREGIVER IN INFECTION CONTROL/PREVENTION. [code = SKILLED NURSE TO INSTRUCT PATIENT/CAREGIVER IN INFECTION CONTROL/PREVENTION.] Future Scheduled Test SKILLED NU RSE TO PROVIDE OBSERVATION/ ASSESSMENT AND TEACHING/REINFORCEMENT OF COPD [code = SKILLED NURSE TO PROVIDE OBSERVATION/ ASSESSMENT AND TEACHING/REINFORCEMENT OF COPD] Future Scheduled Test SKILLED NU RSE TO OBTAIN O2 SATS VIA PULSE OXIMETER EVERY VISIT [code = SKILLED NURSE TO OBTAIN O2 SATS VIA PULSE OXIMETER EVERY VISIT] Future Scheduled Test SKILLED NU RSE TO ASSESS, OBSERVE, AND RE-ENFORCE PATIENT/CAREGIVER KNOWLEDGE ON HOW TO USE AND MAINTAIN OXYGEN SAFELY [code = SKILLED NURSE TO ASSESS, OBSERVE, AND RE-ENFORCE PATIENT/CAREGIVER KNOWLEDGE ON HOW TO USE AND MAINTAIN OXYGEN SAFELY] Future Scheduled Test NEED FOR O /A AND SKILLED TEACHING RELATED TO INCREASED RISK FOR ER VISIT OR HOSPITAL READMISSION [code = NEED FOR O/A AND SKILLED TEACHING RELATED TO INCREASED RISK FOR ER VISIT OR HOSPITAL READMISSION] Future Scheduled Test SKILLED NU RSE TO REVIEW MEDICATION PROFILE AND RECONCILE MEDICATIONS NEEDED. SKILLED NURSE MAY INSTRUCT AND REINFORCE MEDICATION TEACHING RELATED TO USE OF MEDICATIONS TO TREAT DISEASE PROCESSES. [code = SKILLED NURSE TO REVIEW MEDICATION PROFILE AND RECONCILE MEDICATIONS NEEDED. SKILLED NURSE MAY INSTRUCT AND REINFORCE MEDICATION TEACHING RELATED TO USE OF MEDICATIONS TO TREAT DISEASE PROCESSES.] Future Scheduled Test SKILLED NU RSE TO PROVIDE OBSERVATION/ ASSESSMENT AND TEACHING/REINFORCEMENT OF CORONARY ARTERY DISEASE [code = SKILLED NURSE TO PROVIDE OBSERVATION/ ASSESSMENT AND TEACHING/REINFORCEMENT OF CORONARY ARTERY DISEASE] Future Scheduled Test Kerri , THE UN DERSIGNED CERTIFYING PHYSICIAN, HAVE REVIEWED THE CLINICAL NOTE FOR THE [id number] ENCOUNTER FOR THE PATIENT IDENTIFIED HEREIN, WHICH IS RELATED TO THE PRIMARY REASON THE PATIENT REQUIRES HOME HEALTH SERVICES AND WHICH NOTE IS CLINICALLY CONSISTENT WITH MY MEDICAL RECORD FOR THE PATIENT. I HEREBY INCORPORATE THE CLINICAL NOTE FOR THE [id number] ENCOUNTER FOR THE PATIENT INTO MY MEDICAL RECORD FOR THE PATIENT. [code = I , THE UNDERSIGNED CERTIFYING PHYSICIAN, HAVE REVIEWED THE CLINICAL NOTE FOR THE NZVO-DT-[id number] ENCOUNTER FOR THE PATIENT IDENTIFIED HEREIN, WHICH IS RELATED TO THE PRIMARY REASON THE PATIENT REQUIRES HOME HEALTH SERVICES AND WHICH NOTE IS CLINICALLY CONSISTENT WITH MY MEDICAL RECORD FOR THE PATIENT. I HEREBY INCORPORATE THE CLINICAL NOTE FOR THE [id number] ENCOUNTER FOR THE PATIENT INTO MY MEDICAL RECORD FOR THE PATIENT.] Future Scheduled Test IF THE PAT IENT DEVELOPS ANY OPEN WOUND, PU OR SKIN TEAR DURING THE EPISODE OF CARE WITH HOME HEALTH FOR NURSING OR THERAPY SERVICES. CLEAN THE AFFECTED AREA/WOUND WITH NS AND PAT DRY WITH GAUZE, COVER WITH FOAM OR PROTECTIVE DRESSING NEEDED BY HOME HEALTH CLINICIAN UNTIL SPECIFIC ORDER FROM MD OBTAINED. IF PATIENT IS HOSPITALIZED DURING THIS 60-DAY EPISODE OF CARE, THIS AGENCY MAY RESUME CARE WITH THE DISCIPLINES SEEING THE PATIENT PRIOR TO HOSPITAL ADMISSION. OK TO RECEIVE AND FOLLOW ORDERS FROM PROVIDERS ASSOCIATED WITH [facility] [code = IF THE PATIENT DEVELOPS ANY OPEN WOUND, PU OR SKIN TEAR DURING THE EPISODE OF CARE WITH HOME HEALTH FOR NURSING OR THERAPY SERVICES. CLEAN THE AFFECTED AREA/WOUND WITH NS AND PAT DRY WITH GAUZE, COVER WITH FOAM OR PROTECTIVE DRESSING NEEDED BY HOME HEALTH CLINICIAN UNTIL SPECIFIC ORDER FROM MD OBTAINED. IF PATIENT IS HOSPITALIZED DURING THIS 60-DAY EPISODE OF CARE, THIS AGENCY MAY RESUME CARE WITH THE DISCIPLINES SEEING THE PATIENT PRIOR TO HOSPITAL ADMISSION. OK TO RECEIVE AND FOLLOW ORDERS FROM PROVIDERS ASSOCIATED WITH [facility]] Goal Patient Goal - G ET BACK TO WALKING INCREASE ENERGY LEVEL Goal Provider Goal - PATIENT / CAREGIVER WILL VERBALIZE / DEMONSTRATE ABILITY TO MANAGE HYPERTENSION BY 9 WEEKS Goal Provider Goal - RESPIRATORY EXACERBATIONS WILL BE IDENTIFIED PROMPTLY AND INTERVENTIONS INITIATED TO MINIMIZE ASSOCIATED RISK. PATIENT / CAREGIVER WILL VERBALIZE/DEMONSTRATE AN ABILITY TO CARE FOR ALTERED RESPIRATORY STATUS BY END OF EPISODE. Goal Provider Goal - PATIENT / CAREGIVER WILL VERBALIZE/DEMONSTRATE APPROPRIATE METHODS TO MAINTAIN/GAIN WEIGHT BY THE END OF EPISODE. Goal Provider Goal - CHANGES IN SKIN INTEGRITY STATUS WILL BE IDENTIFIED AND REPORTED TO THE PHYSICIAN FOR PROMPT INTERVENTION. PATIENT / CAREGIVER WILL VERBALIZE/DEMONSTRATE ADEQUATE KNOWLEDGE OF INTEGUMENTARY STATUS AND APPROPRIATE MEASURES TO PROMOTE SKIN INTEGRITY AND PREVENT INJURY BY 9 WEEKS Goal Provider Goal - PATIENT WILL DEMONSTRATE / VERBALIZE KNOWLEDGE OF INTERVENTIONS TO PREVENT FALLS AND SAFETY HAZARDS. PATIENT WILL REMAIN SAFE WITHIN HOME ENVIRONMENT BY 9 WEEKS Goal Provider Goal - A PLAN OF CARE WILL BE ESTABLISHED THAT MEETS ALL PATIENT'S NURSING NEEDS AND COUNTERSIGNED BY PHYSICIAN. Goal Provider Goal - CARDIOVASCULAR EXACERBATIONS WILL BE IDENTIFIED PROMPTLY AND INTERVENTIONS INITIATED TO MINIMIZE COMPLICATIONS. PATIENT / CAREGIVER WILL VERBALIZE/DEMONSTRATE AN ABILITY TO CARE FOR ALTERED CARDIOVASCULAR STATUS BY END OF EPISODE. Goal Provider Goal - PATIENT / CAREGIVER WILL VERBALIZE UNDERSTANDING OF INFECTION CONTROL/PREVENTION BY 9 WEEKS Goal Provider Goal - PATIENT / CAREGIVER WILL VERBALIZE/DEMONSTRATE UNDERSTANDING AND ABILITY TO MANAGE COPD BY 9 WEEKS Goal Provider Goal - PATIENT WILL DEMONSTRATE OXYGEN SATURATION WITH NORMAL LIMITS OR TO PATIENT S OPTIMAL LEVEL ESTABLISHED BY THE PHYSICIAN Goal Provider Goal - PATIENT/CAREGIVER DEMONSTRATE ABILITY TO USE AND MAINTAIN OXYGEN THERAPY SAFELY Goal Provider Goal - PATIENT WILL HAVE NO HOSPITALIZATIONS / ER VISITS DURING THIS EPISODE Goal Provider Goal - PATIENT WILL RECEIVE MEDICATIONS PRESCRIBED. Goal Provider Goal - PATIENT / CAREGIVER WILL VERBALIZE/DEMONSTRATE UNDERSTANDING AND ABILITY TO MANAGE CORONARY ARTERY DISEASE BY 9 WEEKS Goal Provider Goal - Encounters Start Date/Time End Date/Time Encounter Type Admission Type Attending [facility] Care Department Encounter ID Discharge Date Discharge Status Discharge Condition Discharge Reason Percent Goals Met 2025-07-01 00:00:00 2025-08-29 00:00:00 Outpatient NEW ADMISSION DARREN GILLIAM [facility] [id number] 75.00
--- OUTSIDE RECORDS SUMMARY | 2025-07-12 12:39 | EXTERNAL MEDICAL SUMMARY RPT | Encounter Summary ---
Author Organization [facility] Address [address] [place] [address] Care Team Providers Care Assorter Laundry Name Role Phone Silverio Lucero PA-C Primary Care Provider [phone] Encounter Details Date Type Department Care Team (Late st Contact Info) Description 06/15/[facility] Telephone Encounter Primary Care [...] encounter Miscellaneous Notes * Telephone Encounter - Wallace Wilhelm - 06/15/2025 12:51 PM PST Other: Sp[facility] calling [facility] and [facility] are planning to discharge in next 2- 3 days, they will contacting you regarding maintenance on a Bpap they aresending home with her. He can contact [facility] if any questions. PCP: Silverio Lucero PA-C [facility] [place] to leave a detailed message regarding clinical information: No Additional Comments: none If speaking with external facility, ask for fax number: none documented in this encounter Plan of Treatment Not on file documented as of this encounter Visit Diagnoses Not on filedocumented in this encounter Care Teams Assorter Laundry Relationship Specialty Start Date End Date Silverio Lucero, JENNIFER [address] [place] [address] PCP - General 05/14/20 documented as of this encounter
--- OUTSIDE RECORDS SUMMARY | 2025-07-12 12:40 | EXTERNAL MEDICAL SUMMARY RPT | Encounter Summary ---
Author Organization [facility] Address [address] [place] [address] Care Team Providers Care Silver Designer Name Role Phone Silverio Lucero PA-C Primary Care Provider [phone] Encounter Details Date Type Department Care Team ([facility] Contact Info) Description 03/19/2025 Automated Patient Message [address] [id number] Social History Tobacco Use Types Packs/Day Years [...] on filedocumented in this encounter Care Teams Silver Designer Relationship Specialty Start Date End Date Silverio Lucero PA-C [address] [place] [address] PCP - General 05/14/20 documented as of this encounter
--- OUTSIDE RECORDS SUMMARY | 2025-07-12 12:40 | EXTERNAL MEDICAL SUMMARY RPT | Encounter Summary ---
Author Organization [facility] Address [address] [place] [address] Care Team Providers Care On Site Services Specialist Name Role Phone Silverio Lucero PA-C Primary Care Provider [phone] Encounter Details Date Type Department Care Team ([facility] st Contact Info) Description 06/29/2025 Scanned Document Ext Emergency Medicine Nathaniel Ramos [facility] [address] [place] [address] Emergency Dept. Document Social History Tobacco Use Types Packs/Day Years [...] on filedocumented in this encounter Care Teams On Site Services Specialist Relationship Specialty Start Date End Date Silverio Lucero PA-C [address] [place] [phone] PCP - General 05/14/20 documented as of this encounter
--- OUTSIDE RECORDS SUMMARY | 2025-07-12 12:40 | EXTERNAL MEDICAL SUMMARY RPT | Encounter Summary ---
Author Organization [facility] Address [address] [place] [address] Care Team Providers Care Machine Clerical Verifier Name Role Phone Silverio Lucero PA-C Primary Care Provider [phone] Reason for Referral * Outpatient Service (Routine) - Authorized Specialty Diagnoses / Procedures Referred By Contindio t Referred To Contact Pulmonary Medicine Diagnoses Chronic respiratory failure with hypoxia and hypercapnia COPD with asthma Procedures REF PULMONOLOG[place] [address] [place] [address] Phone: tel: fax: [facility] [place] [address] Referral ID Status Reason Start Date Expiration Date Visits Requested Visits Authorized [id number] Authorized Evaluate and Treat-Surgery if Indicated 06/30/2026 1 1 [facility] Reason for Visit * Reason Comments Care Coordination Encounter Details Date Type Department Care Team (Latest Contact Info) Description 06/30/2025 [facility] Telephone Encounter [facility] [address] [place] [address] [place] [address] [place], [place] [id number] Care Coordination Social History Tobacco Use Types [...] encounter Miscellaneous Notes * Telephone Encounter - Danyell Resendiz MD - 06/30/2025 3:50 PM PST Referral placed for pulmonology Per chart review it looks like the patient is seeing an outside provider for pain management Danyell Resendiz MD 06/30/2025 3:50 PM Covering for Silverio Lucero PA-C * Telephone Encounter - Tevin Benjamin - 06/30/2025 1:02 PM PST Other: Patient’s , Oliverio, is calling to speak with the care team regarding the referral [facility]. He reports that the available appointments are scheduled far out and the patient is currently experiencing significant pain. He would also like to discuss getting the patient connected with a senior oracle database developer. PCP: Silverio Lucero PA-C [facility] [place] to leave a detailed message regarding clinical information: Yes (Patient has active MyChart) Additional Comments: If speaking with external facility, ask for fax number: * Telephone Encounter - Lea José LPN - 06/30/2025 11:05 AM PST FYI ONLY - Please done from your inbox and/or close encounter after review * Telephone Encounter - Leeanne Friedman - 06/30/2025 11:01 AM PST Home Health, [facility]pc Facility, or Penitentiary calling for Orders or Medical Information: Route TE to hand silvering supervisor/MA Pool Which type of facility is calling? Home Health Reason for Call: Susie Quintanilla with [facility] calling to let Silverio Lucero know that they willbegin seeing aptient tomorrow 07/01/2025 for nursing. PCP: Silverio Lucero PA-C [facility] [place] to leave a detailed message regarding clinical information: No Additional Comments: None If speaking with external facility, ask for fax number: None documented in this encounter Plan of Treatment Not on file documented as of this encounter Visit Diagnoses Diagnosis Chronic respiratory failure with hypoxia and hypercapnia- Primary COPD with asthma Chronic obstructive asthma, unspecified documented in this encounter Care Teams Machine Clerical Verifier Relationship Specialty Start Date End Date Silverio Lucero PA-C [address] [place] [id number] PCP - General 05/14/20 documented as of this encounter
--- OUTSIDE RECORDS SUMMARY | 2025-07-12 12:40 | EXTERNAL MEDICAL SUMMARY RPT | Clinical Summary ---
Author Organization [facility] [place] Address [address] [place] [address] Care Team Providers Care Sash Installer Name Role Phone Nic Silverio Short PA-C Primary Care Provider [phone] Allergies Active Allergy Reactions Criticality Noted Date Comments Codeine Skin: Hives,Respirat ory Distress 01/18/2014 TX FROM [facility] Morphine Respiratory Distress 01/18/2014 TX FROM [facility] Sulfa Antibiotics 01/18/2014 TX FROM [facility] Medications acetaminophen 325 MG tablet Take 2 tablets (650 mg) by mouth every 4 hours as needed for mild pain, moderate pain or severe pain. 2 Active albuterol HFA 108 (90 Base) MCG/ACT inhaler Inhale 1-2 puffs by mouth every 4 hours as needed for shortness of breath/wheezin g. 2 Active tiotropium 2.5 MCG/ACT inhaler Inhale 2 puffs by mouth daily. 2 Active lisinopril 20 MG tablet Take 1 tablet (20 mg) by mouth 2 times a day. 60 tablet 2 Active cholecalciferol 25 mcg (1,000 unit) tablet Take 1 tablet (1,000 units) by mouth daily. 2 Active amLODIPine 10 MG tablet Take 1 tablet (10 mg) by mouth daily. 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 12/05 Overview (07/02/2022): Last Assessment & Plan: Interval History & Assessment: Plan: Latent tuberculosis 03/07/2019 Lumbar stenosis with neurogenic claudication Hyperparathyroidism 08/16/2017 Hyponatremia 09/12/2016 Essential hypertension 09/11/2016 Pulmonary emphysema 09/11/2016 Overview (07/02/2022): Problem List Personal Development Coach Utility Degeneration of lumbar or lumbosacral interverte bral disc 09/02/2013 Overview (01/18/2014): TX [facility] Degeneration of cervical intervertebral disc Overview (01/18/2014): TX [facility] Dizziness and giddiness 08/18/2013 Overview (01/18/2014): TX [facility] Unspecified disease of spinal cord 08/18/2013 Overview (01/18/2014): TX FROM [facility] Disturbance of skin sensation 11/29/2011 Overview (07/02/2022): TX FROM [facility] Depressive disorder 11/29/2011 Overview (07/02/2022): PLRU [id number] S/P lumbar fusion 11/29/2011 Immunizations Immunization Administration Dates Next Due Influenza quadrivalent adjuvanted (Fluad) 2021 Social History Tobacco Use Types Packs/Day Years Used Date Smoking Tobacco: Never Assessed Comments No Sex and Gender Information Value Date Recorded Sex Assigned at Not on file Legal Sex Female 4:49 AM PST Gender Identity Not on file Sexual Orientation Not on file Last Filed Vital Signs Vital Sign Reading Time Taken Comments Blood Pressure 139/95 07/05/2022 3:33 PM PST Pulse 107 07/05/2022 3:33 PM PST Temperature 36.6 C (97.9 F) 07/05/2022 3:33 PM PST Respiratory Rate 18 07/05/2022 3:33 PM PST Oxygen Saturation 96% 07/05/2022 3:33 PM PST Inhaled Oxygen Concentration - - Weight 39.1 kg (86 lb 1.6 oz) 07/02/2022 10:51 A M PST Height 160 cm (5' 3") 07/02/2022 10:51 AM PST Body Mass Index 15.25 07/02/2022 10:51 AM PST Plan of Treatment Not on file Procedures Procedure Name Priority Date/Time Associated Diagnosis Comments PREMANAGE Routine 07/10/2025 4:59 PM PST Procedure Note - 07/10/2025 4:59 PM PSTThis note is in progress. Patient has visited an external emergency department or has beenhospitalized outside of [facility] --MOST RECENT VISIT-- IP Admit:07/10/25 14:57 Discharge: [facility] Attending Provider:Dandy Encounter Type:Intensive Care Major Class:Inpatient Chief Complaint:Acute and chronic respiratory failure with hypoxia Diagnosis: Acute and chronic respiratory failure with hypoxia ED/UCC VISIT TRACKING (3 MO.) [facility] FAILURE TO THRIVE 06/29/2025 11:52 [facility] -Unspecified abdominal pain -Weakness 06/25/2025 15:08 [facility] -Diarrhea, unspecified -Hematuria, unspecified 06/12/2025 09:51 [facility] [place] UTI 05/19/2025 15:13 [facility] -Pain due to genitourinary prosthetic devices, implants and grafts, initial encounter 05/16/2025 23:47 [facility] [place] -Chronic obstructive pulmonary disease with (acute) exacerbation -Chronic obstructive pulmonary disease with (acute) exacerbation -Dyspnea, unspecified -Other chest pain 04/28/2025 14:34 [facility] YasmeenDaina [place]gency -Chest pain, unspecified -Chronic obstructive pulmonary disease with (acute) exacerbation -Other specified abnormal findings of blood chemistry -Shortness of breath INPATIENT VISIT TRACKING (1 MO.) Visit Date Location [facility] TypeDx/Complaint -------- ------- 07/10/2025 14:57 [facility] [place] -Acute and chronic respiratory failure with hypoxia 06/13/2025 16:24 [facility] [place] -Acute and chronic respiratory failure withhypercapnia -Acute and chronic respiratory failure with hypercapnia -Acute and chronic respiratory failure with hypoxia -Acute and chronic respiratory failure with hypoxia -Anxiety disorder, unspecified -Anxiety disorder, unspecified -Atherosclerotic heart disease of [place] coronary artery without angina pectoris -Atherosclerotic heart disease of [place] coronary artery without angina pectoris -Chronic obstructive pulmonary disease with (acute) exacerbation -Chronic obstructive pulmonary disease with (acute) exacerbation -Diarrhea, unspecified -Diarrhea, unspecified -Emphysema, unspecified -Emphysema, unspecified -Enterocolitis due to Clostridium difficile, not specified as recurrent -Enterocolitis due to Clostridium difficile, not specified as recurrent -Hypokalemia -Hypokalemia -Hypomagnesemia -Hypomagnesemia -Hypotension, unspecified -Hypotension, unspecified -Hypovolemia -Hypovolemia -Lower abdominal pain, unspecified -Metabolic encephalopathy -Metabolic encephalopathy -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 --- --CARE GUIDELINES-- (Below are the most recent care guidelines entered by a Medicine careprovider in [facility]. If Medicine guidelines do not exist in [facility], the mostrecent care guideline entered by an external hospital care provider isdisplayed.) [facility] has no Care Guidelines for this patient. Security Events No recent Security Events currently on file --CARE PROVIDERS-- CARE PROVIDERS Name Phone TypeService Dates ---- ----- CONCHIS ROSARIO S K [phone] Dentist:Hotel Or Motel Manager Unknown - Current SILVERIO LUCERO Unknown PhysicianAssistant Unknown - Current RIO MATHIS M, (DMD) JENNIFER SCHMITZ Unknown DentistUnknown - Current PREMANAGE Routine 07/10/2025 4:10 PM PST PREMANAGE Routine 06/29/2025 5:24 PM PST PREMANAGE Routine 06/25/2025 8:47 PM PST PREMANAGE Routine 06/23/2025 4:01 PM PST PREMANAGE Routine 06/12/2025 5:57 PM PST PREMANAGE Routine 05/19/2025 8:10 PM PDT PREMANAGE Routine 05/17/2025 1:20 PM PDT PREMANAGE Routine 04/28/2025 8:10 PM PDT from Last 3 Months Results * PREMANAGE (07/10/2025 4:10 PM PST) Only the most recent of8 resultswithin the time period is included. 07/10/2025 4:10 PM PST Narrative [facility] - 07/10/2025 4:10 PM PST Patient has visited an external emergency department or has been hospitalized outside of Medicine --MOST RECENT VISIT-- ED Admit:07/10/25 12:27 Location[facility] Attending Provider:Derrick Encounter Type:Emergency Major Class:Emergency Chief Complaint:FAILURE TO THRIVE Diagnosis: ED/C VISIT TRACKING (3 MO.) Visit Date Location [facility] Dx/Complaint -------- ------- ---- 07/10/2025 12:27 [facility] [place] Emergency FAILURE TO THRIVE 06/29/2025 11:52 [facility] [place] [place] Emergency -Unspecified abdominal pain -Weakness 06/25/2025 15:08 [facility] [place] [place] Emergency -Diarrhea, unspecified -Hematuria, unspecified 06/12/2025 09:51 [facility] [place] [place] Emergency UTI 05/19/2025 15:13 [facility] [place] [place] Emergency -Pain due to genitourinary prosthetic devices, implants and grafts, initial encounter 05/16/2025 23:47 [facility] [place] Emergency -Chronic obstructive pulmonary disease with (acute) exacerbation -Chronic obstructive pulmonary disease with (acute) exacerbation -Dyspnea, unspecified -Other chest pain 04/28/2025 14:34 [facility] [place] [place] Emergency -Chest pain, unspecified -Chronic obstructive pulmonary disease with (acute) exacerbation -Other specified abnormal findings of blood chemistry -Shortness of breath INPATIENT VISIT TRACKING (1 MO.) Visit Date Location [facility] Dx/Complaint -------- ------- ---- 06/13/2025 16:24 [facility] [place] [place] Intensive Care -Acute and chronic respiratory failure with hypercapnia -Acute and chronic respiratory failure with hypercapnia -Acute and chronic respiratory failure with hypoxia -Acute and chronic respiratory failure with hypoxia -Anxiety disorder, unspecified -Anxiety disorder, unspecified -Atherosclerotic heart disease of [place] coronary artery without angina pectoris -Atherosclerotic heart disease of [place] coronary artery without angina pectoris -Chronic obstructive pulmonary disease with (acute) exacerbation -Chronic obstructive pulmonary disease with (acute) exacerbation -Diarrhea, unspecified -Diarrhea, unspecified -Emphysema, unspecified -Emphysema, unspecified -Enterocolitis due to Clostridium difficile, not specified as recurrent -Enterocolitis due to Clostridium difficile, not specified as recurrent -Hypokalemia -Hypokalemia -Hypomagnesemia -Hypomagnesemia -Hypotension, unspecified -Hypotension, unspecified -Hypovolemia -Hypovolemia -Lower abdominal pain, unspecified -Metabolic encephalopathy -Metabolic encephalopathy -Mixed disorder of acid-base balance -Mixed disorder of acid-base balance -Other acidosis -Other acidosis -Other disorders of phosphorus metabolism -Other disorders of phosphorus metabolism -Other retention of urine -Other retention of urine -Other specified counseling -Other specified counseling -Retention of urine, unspecified -Unspecified severe protein-calorie malnutrition -Unspecified severe protein-calorie malnutrition ED VISIT COUNT (12 MO.) [facility] Total Note: Visits indicate total known visits. --CARE GUIDELINES-- (Below are the most recent care guidelines entered by a Medicine care provider in [facility]. If Medicine guidelines do not exist in [facility], the most recent care guideline entered by an external hospital care provider is displayed.) [facility] has no Care Guidelines for this patient. Security Events No recent Security Events currently on file --CARE PROVIDERS-- CARE PROVIDERS Name Phone Type Service Dates ---- ----- ---- CONCHIS ROSARIO S K [phone] Dentist: Hotel Or Motel Manager Unknown - Current SILVERIO LUCERO Unknown Physician Administrator Unknown - Current RIO MATHIS M, (DMD) JENNIFER NADIR Unknown Dentist Unknown - Current Procedure Note EXTERNAL ED PHYSICIAN - 07/10/2025 Patient has visited an external emergency department or has beenhospitalized outside of [facility] --MOST RECENT VISIT-- ED Admit:07/10/25 12:27 [facility] Attending Provider:Derrick Encounter Type:Emergency Major Class:Emergency Chief Complaint:FAILURE TO THRIVE Diagnosis: ED/C VISIT TRACKING (3 MO.) [facility] ------- 07/10/2025 12:27 [facility] [place] FAILURE TO THRIVE 06/29/2025 11:52 [facility] [place] -Unspecified abdominal pain -Weakness 06/25/2025 15:08 [facility] [place] -Diarrhea, unspecified -Hematuria, unspecified 06/12/2025 09:51 [facility] Nazia [place] UTI 05/19/2025 15:13 [facility] Nazia [place]gency -Pain due to genitourinary prosthetic devices, implants and grafts, initial encounter 05/16/2025 23:47 [facility] Nazia Cih [place] -Chronic obstructive pulmonary disease with (acute) exacerbation -Chronic obstructive pulmonary disease with (acute) exacerbation -Dyspnea, unspecified -Other chest pain 04/28/2025 14:34 [facility] [place] -Chest pain, unspecified -Chronic obstructive pulmonary disease with (acute) exacerbation -Other specified abnormal findings of blood chemistry -Shortness of breath INPATIENT VISIT TRACKING (1 MO.) Visit Date Location [facility] TypeDx/Complaint -------- ------- 06/13/2025 16:24 [facility] [place] -Acute and chronic respiratory failure withhypercapnia -Acute and chronic respiratory failure with hypercapnia -Acute and chronic respiratory failure with hypoxia -Acute and chronic respiratory failure with hypoxia -Anxiety disorder, unspecified -Anxiety disorder, unspecified -Atherosclerotic heart disease of [place] coronary artery without angina pectoris -Atherosclerotic heart disease of [place] coronary artery without angina pectoris -Chronic obstructive pulmonary disease with (acute) exacerbation -Chronic obstructive pulmonary disease with (acute) exacerbation -Diarrhea, unspecified -Diarrhea, unspecified -Emphysema, unspecified -Emphysema, unspecified -Enterocolitis due to Clostridium difficile, not specified as recurrent -Enterocolitis due to Clostridium difficile, not specified as recurrent -Hypokalemia -Hypokalemia -Hypomagnesemia -Hypomagnesemia -Hypotension, unspecified -Hypotension, unspecified -Hypovolemia -Hypovolemia -Lower abdominal pain, unspecified -Metabolic encephalopathy -Metabolic encephalopathy -Mixed disorder of acid-base balance -Mixed disorder of acid-base balance -Other acidosis -Other acidosis -Other disorders of phosphorus metabolism -Other disorders of phosphorus metabolism -Other retention of urine -Other retention of urine -Other specified counseling -Other specified counseling -Retention of urine, unspecified -Unspecified severe protein-calorie malnutrition -Unspecified severe protein-calorie malnutrition ED VISIT COUNT (12 MO.) [facility] ------ [facility] Total Note: Visits indicate total known visits. --CARE GUIDELINES-- (Below are the most recent care guidelines entered by a Medicine careprovider in [facility]. If Medicine guidelines do not exist in [facility], the mostrecent care guideline entered by an external hospital care provider isdisplayed.) [facility] has no Care Guidelines for this patient. Security Events No recent Security Events currently on file --CARE PROVIDERS-- CARE PROVIDERS Name Phone TypeService Dates ---- ----- CONCHIS ROSARIO DDS K [phone] Dentist:Hotel Or Motel Manager Unknown - Current SILVERIO LUCERO Unknown PhysicianAssistant Unknown - Current RIO MATHIS M, (DMD) JENNIFER SCHMITZ Unknown DentistUnknown - Current us External Ed Physician OTHER Final Resu lt [facility] from Last 3 Months Insurance MEDICARE ([employer]) [facility] [place] MEDICARE ([employer]) Advance Directives For more information, please contact: [phone] * Full Code (Latest Code Status on File) Date Activated Date Inactivated Comments 07/02/2022 10:19 AM 07/05/2022 10:45 PM Care Teams Sash Installer Relationship Specialty Start Date End Date Silverio Lucero PA-C [address] [place] [address] PCP - General Physician Administrator 07/03/22
--- OUTSIDE RECORDS SUMMARY | 2025-07-12 12:40 | EXTERNAL MEDICAL SUMMARY RPT | Clinical Summary ---
Author Organization [facility] Address [address] [place] [address] Care Team Providers Care Calciminer Name Role Phone Unavailable Primary Care Provider Unavailabl e Social History Tobacco Use Types Packs/Day Years Used Date Smoking Tobacco: Never Assessed Comments Unknown Sex and Gender Information Value Date Recorded Sex Assigned at Female 08/27/2019 1:08 PM PST Legal Sex Female 1:08 PM PST Gender Identity Female 08/27/2019 1:08 PM PST Sexual Orientation Straight 08/27/2019 1: 08 PM PST Plan of Treatment Not on file Insurance [place] [facility] [place] MEDICARE ADVANTAGE [facility] MEDICARE ADVANTAGE
--- OUTSIDE RECORDS SUMMARY | 2025-07-12 12:40 | EXTERNAL MEDICAL SUMMARY RPT | Encounter Summary ---
Author Organization [facility] Address [address] [place] [address] Care Team Providers Care Mason Tender Name Role Phone Unavailable Primary Care Provider Unavailabl e Encounter Details Date Type Department Care Team (Late st Contact Info) Description 10/20/2019 [facility] [address] [place] [phone] Conversion, [employer] Social History Tobacco Use Types Packs/Day Years Used Date Smoking Tobacco: Never Assessed Comments Unknown Sex and Gender Information Value Date Recorded Sex Assigned at Female 08/27/2019 1:08 PM PST Legal Sex Female 1:08 PM PST Gender Identity Female 08/27/2019 1:08 PM PST Sexual Orientation Straight 08/27/2019 1: 08 PM PST documented as of this encounter Plan of Treatment Not on file documented as of this encounter Procedures Procedure Name Priority Date/Time Associated Diagnosis Comments 20 P EXTRACTION, ERUPTED TOOTH OR EXPOSED ROOT (ELEVATION AND/OR FORCEPS REMOVAL) Routine 07/19/2019 12:00 AM PST 9 P EXTRACTION, ERUPTED TOOTH OR EXPOSED ROOT (ELEVATION AND/OR FORCEPS REMOVAL) Routine 07/19/2019 12:00 AM PST 8 P EXTRACTION, ERUPTED TOOTH OR EXPOSED ROOT (ELEVATION AND/OR FORCEPS REMOVAL) Routine 07/19/2019 12:00 AM PST 7 P EXTRACTION, ERUPTED TOOTH OR EXPOSED ROOT (ELEVATION AND/OR FORCEPS REMOVAL) Routine 07/19/2019 12:00 AM PST 6 P EXTRACTION, ERUPTED TOOTH OR EXPOSED ROOT (ELEVATION AND/OR FORCEPS REMOVAL) Routine 07/19/2019 12:00 AM PST 13 P EXTRACTION, ERUPTED TOOTH OR EXPOSED ROOT (ELEVATION AND/OR FORCEPS REMOVAL) Routine 07/17/2019 12:00 AM PST 12 P EXTRACTION, ERUPTED TOOTH OR EXPOSED ROOT (ELEVATION AND/OR FORCEPS REMOVAL) Routine 07/17/2019 12:00 AM PST 11 P EXTRACTION, ERUPTED TOOTH OR EXPOSED ROOT (ELEVATION AND/OR FORCEPS REMOVAL) Routine 07/17/2019 12:00 AM PST 10 P EXTRACTION, ERUPTED TOOTH OR EXPOSED ROOT (ELEVATION AND/OR FORCEPS REMOVAL) Routine 07/17/2019 12:00 AM PST 29 P EXTRACTION, ERUPTED TOOTH OR EXPOSED ROOT (ELEVATION AND/OR FORCEPS REMOVAL) Routine 05/13/2019 12:00 AM PDT 13 MOD P RESIN-BASED COMPOSITE - THREE SURFACES, POSTERIOR Routine 03/19/2019 12:00 AM PDT 12 MOD P RESIN-BASED COMPOSITE - THREE SURFACES, POSTERIOR Routine 03/19/2019 12:00 AM PDT P CARIES RISK ASSESSMENT AND DOCUMENTATION, WITH A FINDING OF HIGH RISK Routine 03/19/2019 12:00 AM PDT 13 P ENDODONTIC THERAPY, PREMOLAR TOOTH (EXCLUDING FINAL RASTAFARI) Routine 03/19/2019 12:00 AM PDT 26 P CROWN - PORCELAIN FUSED TO BAIN METAL Routine 03/19/2019 12:00 AM PDT 29 MO P AMALGAM - TWO SURFACES, PRIMARY OR PERMANENT Routine 03/19/2019 12:00 AM PDT 21 O P AMALGAM - ONE SURFACE, PRIMARY OR PERMANENT Routine 03/19/2019 12:00 AM PDT 8 L P AMALGAM - ONE SURFACE, PRIMARY OR PERMANENT Routine 03/19/2019 12:00 AM PDT P INTRAORAL - COMPLETE SERIES OF RADIOGRAPHIC IMAGES Routine 03/19/2019 12:00 AM PDT P COMPREHENSIVE ORAL EVALUATION - NEW OR ESTABLISHED PATIENT Routine 03/19/2019 12:00 AM PDT documented in this encounter Visit Diagnoses Not on filedocumented in this encounter
--- OUTSIDE RECORDS SUMMARY | 2025-07-12 12:40 | EXTERNAL MEDICAL SUMMARY RPT | Encounter Summary ---
Author Organization [facility] Address [address] [place] [address] Care Team Providers Care Finishing Range Feeder Name Role Phone Silverio Lucero PA-C Primary Care Provider [phone] Reason for Referral * Palliative Care (Routine) - Closed Specialty Diagnoses / Procedures Referred By Contac t Referred To Contact Palliative Care / HOME HLTH/PALL/HSP Diagnoses Chronic respiratory failure with hypoxia and hypercapnia Procedures REF HOME HEALTH AND PALLIATIVE CARE OTHER THERAPY SERV Silverio Lucero PA-C [address] [place] [address] Phone: tel: fax: Home Care [address] [place] [address] Phone: tel: fax: Referral ID Status Reason Start Date Expiration Date V isits Requested Visits Authorized [id number] Closed Itemized Services 07/09/2025 09/07/2025 1 1 Encounter Details Date Type Department Care Team (Late st Contact Info) Description 07/09/2025 [facility] Telephone Encounter Clinical Pharmacy Services [address] [place] [address] Yaron Gardner MA [address] [place] [address] Social History Tobacco Use Types Packs/Day Years [...] encounter Miscellaneous Notes * Telephone Encounter - Yaron Gardner MA - 07/09/2025 8:33 AM PST TEAM B ACTION NEEDED (be specific): Claudia CASTILLO) w/ [facility] , calling in, requesting External Palliative Care Referral. I Pended Referral, please advise. Action Completed: Date issue last addressed: Admission (Discharged) with PROVIDER, UNSPECIFIED (06/29/2025) Most recent plan if applicable (copy/paste): Admission (Discharged) with PROVIDER, UNSPECIFIED (06/25/2025) Relevant labs, imaging/studies, referrals, meds: Referral to Pulmonary Medicine for Chronic respiratory failure with hypoxia and hypercapnia; COPD with asthma (06/30/2025) Referral to Home Health Services for Chronic obstructive pulmonary disease, unspecified (06/30/2025) Future f/u appointments: Future Appointments Date Time Provider Department Center 07/09/2025 3:00 PM Silverio Lucero PA-C [facility] AFTER YOUR ADVICE OR ACTION, PLEASE: Return to clinic staff. Yaron Gardner MA * Telephone Encounter - James Alan - 07/09/2025 8:09 AM PST Other: Claudia CASTILLO) w/ [facility] requesting call back from [facility] care team regarding a request for an external palliative care referral to [facility] for pt. Please call back @ [phone] , OK to leave a detailed message. PCP: Silverio Lucero PA-C [facility] documented in this encounter Plan of Treatment Not on file documented as of this encounter Visit Diagnoses Diagnosis Chronic respiratory failure with hypoxia and hypercapnia- Primary documented in this encounter Care Teams Finishing Range Feeder Relationship Specialty Start Date End Date Silverio Lucero PA-C [address] [place] [address] PCP - General 05/14/20 documented as of this encounter
--- OUTSIDE RECORDS SUMMARY | 2025-07-12 12:40 | EXTERNAL MEDICAL SUMMARY RPT | Encounter Summary ---
Author Organization [facility] Address [address] [place] [address] Care Team Providers Care Laboratory Immunologist Name Role Phone Silverio Lucero PA-C Primary Care Provider [phone] Reason for Visit * Reason Comments Medication Reconciliation (Post Hospital ) Encounter Details Date Type Department Care Team (Late st Contact Info) Description 06/26/2025 Telephone Care Management [address] [id number] Kimberly Haynes, RN [address] [place] [address] Medication Reconciliation (Post Hospital) Social History Tobacco Use Types Packs/Day [...] encounter Miscellaneous Notes * Telephone Encounter - Kimberly Haynes RN - 06/26/2025 3:11 PM PST Post Hospital Discharge Phone Call (Transitional Care Support) SITUATION & BACKGROUND: is a 70 year old female who was admitted on 06/22/25 and discharged on 06/23/25 from [facility] with a diagnosis of Chronic obstructive pulmonary disease with (acute) exacerbation. Registered Nurse Medication Review Post Hospital Discharge Review of the medication record indicates medications were reconciled by the Provider during a post-hospital visit. Please refer to home health care visit encounter on 06/29/25 for details. Kimberly Haynes | RN, BSN, [facility] Complex Care Management Department [facility] [phone] documented in this encounter Plan of Treatment Not on file documented as of this encounter Visit Diagnoses Not on filedocumented in this encounter Care Teams Laboratory Immunologist Relationship Specialty Start Date End Date Silverio Lucero PA-C [address] [place] [address] PCP - General 05/14/20 documented as of this encounter
--- OUTSIDE RECORDS SUMMARY | 2025-07-12 12:40 | EXTERNAL MEDICAL SUMMARY RPT | Encounter Summary ---
Author Organization [facility] Address [address] [place] [address] Care Team Providers Care Forest Supervisor Name Role Phone Silverio Lucero PA-C Primary Care Provider [phone] Reason for Visit * Reason Comments Hospital Discharge Note Encounter Details Date Type Department Care Team (Latest Contact Info) Description 07/06/2022 Notes Encounter (No LOS) Care Management [address] [address] Belle Vallejo, RN [address] [facility] [place] [address] Hospital Discharge Note Social History Tobacco Use [...] on filedocumented in this encounter Care Teams Forest Supervisor Relationship Specialty Start Date End Date Silverio Lucero PA-C [facility] [place] [address] PCP - General 05/14/20 documented as of this encounter
--- OUTSIDE RECORDS SUMMARY | 2025-07-12 12:40 | EXTERNAL MEDICAL SUMMARY RPT | Encounter Summary ---
Author Organization [facility] Address [address] [place] [address] Care Team Providers Care Venetian Blind Washer Name Role Phone Silverio Lucero PA-C Primary Care Provider [phone] Reason for Visit * Reason Comments Medication Consult Encounter Details Date Type Department Care Team ([facility] st Contact Info) Description 07/01/2025 Telephone Mail Order Pharmacy [address] [place] [address] Chadwick Haro, [facility] [address] [place] [address] Medication Consult Social History Tobacco Use Types Packs/Day Years [...] encounter Miscellaneous Notes * Telephone Encounter - Chadwick Haro [facility] - 07/01/2025 5:51 PM PST Reddy Lucero, Patient called saying they are out of their albuterol HFA inhaler when they were sent 3 inhaler (600 puffs) on 04/30/2025. Looking at the fill hx they have gotten 19 inhalers since 10/29/2024 (8 months). I believe patient would benefit from using a CHAMBER and also a investment counselor on how to use the inhaler. I spoke with patient and it seems like they were doing a few things incorrectly to not get the full dose of medication. (Doing 2 short puffs) not pushing down and holding and not putting a couple minutes between puffs. She was completely out and insurance will not cover until 07/10/2025 so expedited out 1 inhaler via [facility] so patient does not run out. Thank you [facility] - Chadwick Scott documented in this encounter Plan of Treatment Not on file documented as of this encounter Visit Diagnoses Not on filedocumented in this encounter Care Teams Venetian Blind Washer Relationship Specialty Start Date End Date Silverio Lucero PA-C [facility] [place] [address] PCP - General 05/14/20 documented as of this encounter
--- OUTSIDE RECORDS SUMMARY | 2025-07-12 12:40 | EXTERNAL MEDICAL SUMMARY RPT | Encounter Summary ---
Author Organization [facility] Address [address] [place] [address] Care Team Providers Care Drawing Supervisor Name Role Phone Silverio Lucero PA-C Primary Care Provider [phone] Reason for Visit * Reason Comments Outside Records Encounter Details Date Type Department Care Team (Late st Contact Info) Description 06/24/2025 [facility] Telephone Encounter [facility] [address] [place] [address] [address] MA [address] [place] [address] Outside Records Social History Tobacco Use Types Packs/Day Years [...] encounter Miscellaneous Notes * Telephone Encounter - Lea José LPN - 06/25/2025 9:31 AM PST KEVIN Hernandez spoke with patient/ on 06/24 and scheduled patient to see Dr. Whitlock on 06/30/25. * Telephone Encounter - Irma Spencer MA - 06/25/2025 9:08 AM PST * Telephone Encounter - Teresa Rosenthal - 06/24/2025 3:47 PM PST No Appointment Access: High Risk, Average Risk, UC, or ER Follow Up: Route TE to RN/SEISMOGRAPH SUPERVISOR Pool as high priority Type of facility: Hospital Name of Facility: [facility] Date of Discharge: PCP: Silverio Lucero PA-C [facility] OK to leave a detailed message regarding clinical information: No Additional Comments: Patient was discharged 18Nov and requested a follow up within 4-5 days. Patient also has a jacobs catheter that has be removed prior to 7 days. Patient complains of SOB and was advised to get a BIPAP machine. Please contact Howard to assist with scheduling documented in this encounter Plan of Treatment Not on file documented as of this encounter Visit Diagnoses Not on filedocumented in this encounter Care Teams Drawing Supervisor Relationship Specialty Start Date End Date Silverio Lucero PA-C [address] [place] [address] PCP - General 05/14/20 documented as of this encounter
--- OUTSIDE RECORDS SUMMARY | 2025-07-12 12:40 | EXTERNAL MEDICAL SUMMARY RPT | Encounter Summary ---
Author Organization [facility] Address [address] [place] [address] Care Team Providers Care Athletic Coordinator Name Role Phone Silverio Lucero PA-C Primary Care Provider [phone] Reason for Visit * Reason Comments Referral Encounter Details Date Type Department Care Team ([facility] st Contact Info) Description 01/05/2025 [facility] [address] [place] [address] Lea José LPN [address] [place] [address] Referral Social History Tobacco Use Types Packs/Day [...] Telephone Encounter - Lea José LPN - 01/05/2025 3:03 PM PDT ACTION NEEDED (be specific): Please process renewal of referral. AFTER YOUR ADVICE OR ACTION, PLEASE ROUTE BACK TO: No one - Close encounter Previous referral dated 08/07/2023. Referral # [id number] * Telephone Encounter - Lea José LPN - 01/05/2025 3:01 PM PDT Images from the original note were not included. documented in this encounter Plan of Treatment Not on file documented as of this encounter Visit Diagnoses Not on filedocumented in this encounter Care Teams Athletic Coordinator Relationship Specialty Start Date End Date Silverio Lucero PA-C [address] [place] [address] PCP - General 05/14/20 documented as of this encounter
--- OUTSIDE RECORDS SUMMARY | 2025-07-12 12:40 | EXTERNAL MEDICAL SUMMARY RPT | Encounter Summary ---
Author Organization [facility] Address [address] [place] [address] Care Team Providers Care Tractor Expert Name Role Phone Silverio Lucero PA-C Primary Care Provider [phone] Reason for Visit * Reason Comments [facility] Encounter Details Date Type Department Care Team ([facility] Contact Info) Description 07/03/2025 [facility] [address] [place] [address] Silverio Lucero PA-C [address] [place] [address] Outside Records ([facility] Social History Tobacco Use Types Packs/Day Years [...] encounter Miscellaneous Notes * Telephone Encounter - Sehrie Grigsby MA - 07/07/2025 9:53 AM PST Images from the original note were not included. * Telephone Encounter - Karena Steinberg - 07/03/2025 9:17 AM PST Reddy, The following record has been received: Record Located: Forwarded to provider via [employer] folder Received from: [employer] DOS: 06/25/2025 Type of Record: Lab Result Additional Information: Thank you. Bev Steinberg Patient Produce Department Manager [facility] documented in this encounter Plan of Treatment Not on file documented as of this encounter Visit Diagnoses Not on filedocumented in this encounter Care Teams Tractor Expert Relationship Specialty Start Date End Date Silverio Lucero PA-C [address] [place] [address] PCP - General 05/14/20 documented as of this encounter
--- OUTSIDE RECORDS SUMMARY | 2025-07-12 12:40 | EXTERNAL MEDICAL SUMMARY RPT | Encounter Summary ---
Author Organization [facility] Address [address] [place] [address] Care Team Providers Care Industrial Service Technician Name Role Phone Perry Lucero PA-C Primary Care Provider [phone] Reason for Visit * Reason Comments Refill Request Encounter Details Date Type Department Care Team ([facility] st Contact Info) Description 01/13/2024 Refill [facility] Medicine [address] [place] [address] Perry Lucero PA-C [address] [place], [place] [id number] Refill Request Social History Tobacco Use Types [...] encounter Miscellaneous Notes * Telephone Encounter - Em Reyes RPh - 01/15/2024 9:42 AM PDT Refill request approved per Prescription Renewal Protocol Cardiology visit scheduled on 01/21/24 * Telephone Encounter - Em Reyes RPh - 01/15/2024 9:42 AM PDTSigned Prescriptions: Disp Refills carvediloL (COREG) 12.5 mg tablet 60 tab*0 Sig: Take 1 tablet (12.5 mg) by mouth 2 times daily Authorizing Provider: PERRY LUCERO Ordering User: EM REYES documented in this encounter Plan of Treatment Not on file documented as of this encounter Visit Diagnoses Diagnosis Primary hypertension Unspecified essential hypertension documented in this encounter Care Teams Industrial Service Technician Relationship Specialty Start Date End Date Perry Lucero, MUNAC [address] [place] [address] PCP - General 05/14/20 documented as of this encounter
--- OUTSIDE RECORDS SUMMARY | 2025-07-12 12:40 | EXTERNAL MEDICAL SUMMARY RPT | Encounter Summary ---
Author Organization [facility] Address [address] [address] Care Team Providers Care Supervisor Instrument Repair Name Role Phone Silverio Lucero PA-C Primary Care Provider [phone] Reason for Visit * Reason Comments Message Center Call Care Coordination Encounter Details Date Type Department Care Team ([facility] st Contact Info) Description 09/21/2020 Telephone [facility] [address] [place] [address] Silverio Lucero PA-C [address] [place], [place] [phone] Message Center Call; Care Coordination Social History Tobacco Use Types [...] encounter Miscellaneous Notes * Telephone Encounter - Jaclyn Jean LPN - 09/21/2020 1:55 PM PST FYI ONLY - Please done from your inbox and/or close encounter after review Patient reports the leg and feet cramping is not a new symptoms for her, however this is the fist time it has lasted for a week. Scheduled PV for patient to discuss symptoms with a provider, patient in agreement. * Telephone Encounter - Bethel Russell - 09/21/2020 12:52 PM PST Caller is requesting a call back from a nurse. Patient Name: Lois Medrano Caller: self Additional Comments: Pt states that she is in touch with her pulmonary provider but also wanted to reach out to FP. Pt states that her legs and feet cramp all day and night and she is unable to sleep. For 1 week. Ok to leave a detailed message: Yes Thank you, Bethel Russell documented in this encounter Plan of Treatment Not on file documented as of this encounter Visit Diagnoses Not on filedocumented in this encounter Care Teams Supervisor Instrument Repair Relationship Specialty Start Date End Date Silverio Lucero PA-C [facility] [place] [address] PCP - General 05/14/20 documented as of this encounter
--- OUTSIDE RECORDS SUMMARY | 2025-07-12 12:40 | EXTERNAL MEDICAL SUMMARY RPT | Encounter Summary ---
Author Organization [facility] Address [address] [place] [address] Care Team Providers Care Automatic Spinning Lathe Operator Name Role Phone Silverio Lucero PA-C Primary Care Provider [phone] Reason for Referral * DME/P&O (Routine) - Authorized Specialty Diagnoses / Procedures Referred By Starac t Referred To Contact Durable Medical Equipment Diagnoses Pulmonary emphysema, unspecified emphysema type Procedures REF DME NEBULIZER NEBULIZER ADMIN SET NEBULIZER SMALL VOL DISPOSABLE NEBULIZER ADMIN SET NON FILTERED NEBULIZER ADMIN SET FILTERED NEBULIZER LARGE VOL UNFILLED CORRUGATED TUBING DISPOSABLE NEBULIZER WATER COLLEC DEVIC COMPRESSOR FILTER DISPOSABLE COMPRESSOR FILTER NONDISP AEROSOL MASK USED W NEBULIZE NEBULIZER DOME & MOUTHPIECE NEBULIZER NOT USED W OXYGEN FACE TENT TRACHEOSTOMY MASK STERILE WATER/SALINE, 10 ML Chintan Hart DO [address] [place] [address] Phone: tel: fax: [address] [phone] Referral ID Status Reason Start Date Expiration Date Visits Requested Visits Authorized [id number] Authorized Provide DME/applian ce/Brace/matos pplies only 12/14/2023 12/13/2024 1 1 * DME/P&O (Routine) - Authorized Specialty Diagnoses / Procedures Referred By Contindio bee Referred To Contact Durable Medical Equipment Diagnoses Pulmonary emphysema, unspecified emphysema type Procedures REF DME NEBULIZER DME NEBULIZE HOME/PORTABLE NEBULIZER ADMIN SET NEBULIZER SMALL VOL DISPOSABLE NEBULIZER ADMIN SET NON FILTERED NEBULIZER ADMIN SET FILTERED NEBULIZER LARGE VOL UNFILLED CORRUGATED TUBING DISPOSABLE NEBULIZER WATER COLLE DEVIC COMPRESSOR FILTER DISPOSABLE COMPRESSOR FILTER NONDISP AEROSOL MASK USED W NEBULIZE NEBULIZER DOME & MOUTHPIECE NEBULIZER NOT USED W OXYGEN FACE TENT TRACHEOSTOMY MASK STERILE WATER/SALINE, 10 ML Chintan Hart DO [address] [place] [address] Phone: tel: fax: [address] [phone] Referral ID Status Reason Start Date Expiration Date Visits Requested Visits Authorized [id number] Authorized Provide DME/applian ce/Brace/matos pplies only 12/14/2023 12/13/2024 1 1 Encounter Details Date Type Department Care Team (Late st Contact Info) Description 12/12/2023 [facility] Telephone Encounter [address] [address] Chintan Hart DO [address] [place], [place] [id number] Social History Tobacco Use Types Packs/Day Years [...] encounter Miscellaneous Notes * Telephone Encounter - Claudia Starr MA - 12/14/2023 7:50 AM PDT Sent feedback to JONNIE spangler * Telephone Encounter - Claudia Starr MA - 12/14/2023 7:47 AM PDT TEAM A ACTION NEEDED (be specific): DME nebulizer and supplies Patient just switched to Medicare and she said that [employer] is requesting an updated referral patientis in need of a nebulizer and cannulas Action Completed: Pended Patient followed by pulmonology This TE forwarded to pul And was sent back to [facility] Last visit with Pulmonology Office Visit with Sarah Oliver MD (11/24/2022) AFTER YOUR ADVICE OR ACTION, PLEASE: Reply directly to patient: Claudia Starr MA * Telephone Encounter - Macey Villalobos - 12/12/2023 4:52 PM PDT Referral -- Is this for a DME or Specialty Referral? DME: Status: Update A referral is being requested for an external referral. Name of specialty: DME Specific Vendor requested: [employer] Symptom or Diagnosis: COPD Have you previously been seen for this or discussed this with your PCP?Yes: When was your last related visit/hospital admission? Referred by: Primary Care Silverio Lucero PA-C [facility] Additional Comments: Patient just switched to Medicare and she said that [employer] is requesting an updated referral patient is in need of a nebulizer and cannulas OK to leave a detailed message: Yes OK to contact via [facility] member website: Yes Additional phone number: none If speaking with external facility, ask for fax number: none CPT/DX: Macey Chawla documented in this encounter Plan of Treatment Not on file documented as of this encounter Visit Diagnoses Diagnosis Pulmonary emphysema, unspecified emphysema type- Primary documented in this encounter Care Teams Automatic Spinning Lathe Operator Relationship Specialty Start Date End Date Silverio Lucero PA-C [address] [place] [address] PCP - General 05/14/20 documented as of this encounter
--- OUTSIDE RECORDS SUMMARY | 2025-07-12 12:40 | EXTERNAL MEDICAL SUMMARY RPT | Encounter Summary ---
Author Organization [facility] Address [address] [address] Care Team Providers Care Group Sales Manager Name Role Phone Silverio Lucero PA-C Primary Care Provider [phone] Reason for Visit * Reason Comments Med Mgmt Encounter Details Date Type Department Care Team ([facility] Contact Info) Description 10/29/2024 [facility] Telephone Encounter [facility] [address] [place] [address] Silverio Lucero PA-C [address] [place], [place] [phone] Med Mgmt Social History Tobacco Use Types Packs/Day Years [...] encounter Miscellaneous Notes * Telephone Encounter - Stacy Hilliard - 10/30/2024 4:33 PM PDT T/C to patient's spouse, two patient identifiers obtained:: Last name and . Calling spouse to get more information about the refill of Carvedilol. Per chart records they did get 90 day supply. So need to confirm if they are still having problems with quantity being filled. Per spouse it is not Carvedilol but Albuterol that she is needing more of. Only got two inhalers this refill and she says she needs more. Explained to spouse that normally that medication is not used regularly for penitentiary. If she is using it more that as needed provider will need to be contacted to make sure that is OKor see about prescribing her something for penitentiary use. Will send message to Silverio Lucero PA-C for follow up. David Brice RN [facility] [phone] (direct ext) [phone] (main clinic) * Telephone Encounter - Gopi Newton - 10/29/2024 2:22 PM PDT Medication Refill: Name of medication: carvedilol & Preferred Pharmacy Location: PCP: Silverio Lucero PA-C [facility] OK to leave a detailed message regarding clinical information: Yes (Patient verbally authorized) Additional Comments: Patient called following request for a 3 mo refill. Pt's went to [facility] the prescription but they only received 1 mo supply. TE forwarded to FP care team for review and advice. Thank you If speaking with external facility, ask for fax number: n/a documented in this encounter Plan of Treatment Not on file documented as of this encounter Visit Diagnoses Not on filedocumented in this encounter Care Teams Group Sales Manager Relationship Specialty Start Date End Date Silverio Lucero PA-C [address] [place] [address] PCP - General 05/14/20 documented as of this encounter
--- OUTSIDE RECORDS SUMMARY | 2025-07-12 12:40 | EXTERNAL MEDICAL SUMMARY RPT | Encounter Summary ---
Author Organization [facility] Address [address] [place] [address] Care Team Providers Care Accounts Administrator Name Role Phone Unavailable Primary Care Provider Unavailabl e Encounter Details Date Type Department Care Team (Late st Contact Info) Description 03/19/2019 Abstract [facility] [address] [place] [phone] Conversion, [facility] Social History Tobacco Use Types [...]
--- OUTSIDE RECORDS SUMMARY | 2025-07-12 12:40 | EXTERNAL MEDICAL SUMMARY RPT | Encounter Summary ---
Author Organization [facility] Address [address] [address] Care Team Providers Care Medical Research Scientist Name Role Phone Silverio Lucero PA-C Primary Care Provider [phone] Reason for Visit * Reason Comments Refill Request Encounter Details Date Type Department Care Team ([facility] st Contact Info) Description 04/25/2025 Refill [facility] [address] [place] [address] Silverio Lucero PA-C [address] [place], [place] [phone] Refill Request Social History Tobacco Use Types [...] encounter Miscellaneous Notes * Telephone Encounter - Misty Bradford MD - 04/27/2025 8:10 AM PDTSigned Prescriptions: Disp Refills clopidogreL (PLAVIX) 75 mg tablet 30 tab*5 Sig: Take 1 tablet (75 mg) by mouth daily Authorizing Provider: MISTY BRADFORD * Telephone Encounter - Carole Nelson RPh - 04/26/2025 5:03 PM PDTPending Prescriptions: Disp Refills clopidogreL (PLAVIX) 75 mg tablet [Pharmac*30 tab*5 Sig: Take 1 tablet (75 mg) by mouth daily * Telephone Encounter - Carole Nelson RPh - 04/26/2025 5:03 PM PDT Refill(s) are unable to be approved by the Centralized Refill Management Program as the requested medication(s) requires provider review and authorization. Please review request and take appropriate action. If medication is denied or additional follow up is needed, please work with your care team to notify patient. Carole Nelson RPh Centralized Refill Management. documented in this encounter Plan of Treatment Not on file documented as of this encounter Visit Diagnoses Diagnosis Coronary artery disease involving [place] coronary artery of [place] heart without angina pectoris documented in this encounter Care Teams Medical Research Scientist Relationship Specialty Start Date End Date Silverio Lucero PA-C [address] [place] [address] PCP - General 05/14/20 documented as of this encounter
--- OUTSIDE RECORDS SUMMARY | 2025-07-12 12:40 | EXTERNAL MEDICAL SUMMARY RPT | Encounter Summary ---
Author Organization [facility] Address [address] [place] [address] Care Team Providers Care Blocker Hand Name Role Phone Silverio Lucero PA-C Primary Care Provider [phone] Reason for Visit * Reason Comments Med Mgmt Encounter Details Date Type Department Care Team ([facility] st Contact Info) Description 01/12/2025 Telephone Mail Order Pharmacy [address] [place] [address] Dahlia Ovalle, PharmD [address] [place] [address] Med Mgmt Social History Tobacco Use Types [...] encounter Miscellaneous Notes * Telephone Encounter - Dahlia Ovalle, PharmD - 01/12/2025 2:25 PM PDT Silverio Blakely Lois' insurance won't pay for another albuterol till 01/17/25. She has Dx of both COPD and asthma. Inoticed that she has not been filling Spiriva since October (she got just 1 inhaler but said that wasbroken) so I ordered that for her. She refilled 3 albuterol inhalers on 12/08/2024 and she is out, soshe is averaging about 17 puffs per day (plus she uses Duoneb). She is asking us to skip the insurance so she can have more before the insurance will pay for it. I would like to run this by you and cc Pulmonary to review on her usage and symptom control. Please note here if you want to approve her to have the refill early. Thanks, Dahlia documented in this encounter Plan of Treatment Not on file documented as of this encounter Visit Diagnoses Not on filedocumented in this encounter Care Teams Blocker Hand Relationship Specialty Start Date End Date Silverio Lucero, MUNAC [address] [place] [address] PCP - General 05/14/20 documented as of this encounter
--- OUTSIDE RECORDS SUMMARY | 2025-07-12 12:40 | EXTERNAL MEDICAL SUMMARY RPT | Encounter Summary ---
Author Organization [facility] Address [address] [place] [address] Care Team Providers Care Melon Packer Name Role Phone Silverio Lucero PA-C Primary Care Provider Encounter Details Date Type Department Care Team ([facility] Contact Info) Description 01/21/2025 Automated Outreach Text F simon - Pt has overdue lab(s) - Complete at Lab Social History Tobacco Use Types Packs/Day Years [...] on filedocumented in this encounter Care Teams Melon Packer Relationship Specialty Start Date End Date Silverio Lucero PA-C [facility] [place] [address] PCP - General 05/14/20 documented as of this encounter
--- OUTSIDE RECORDS SUMMARY | 2025-07-12 12:40 | EXTERNAL MEDICAL SUMMARY RPT | Encounter Summary ---
Author Organization [facility] Address [address] [place] [address] Care Team Providers Care Infection Preventionist Name Role Phone Silverio Lucero PA-C Primary Care Provider [phone] Encounter Details Date Type Department Care Team ([facility] Contact Info) Description 01/22/2025 Automated Outreach Text S ent on 01/22/2025 - Pt has overdue lab(s) - Complete [...] on filedocumented in this encounter Care Teams Infection Preventionist Relationship Specialty Start Date End Date Silverio Lucero PA-C [address] [place] [address] PCP - General 05/14/20 documented as of this encounter
--- OUTSIDE RECORDS SUMMARY | 2025-07-12 12:40 | EXTERNAL MEDICAL SUMMARY RPT | Encounter Summary ---
Author Organization [facility] Address [address] [place] [address] Care Team Providers Care Lawn Care Specialist Name Role Phone Silverio Lucero PA-C Primary Care Provider [phone] Encounter Details Date Type Department Care Team ([facility] Contact Info) Description 01/20/2025 Automated Patient Message [address] [phone] Social History Tobacco Use Types Packs/Day Years [...] on filedocumented in this encounter Care Teams Lawn Care Specialist Relationship Specialty Start Date End Date Silverio Lucero PA-C [address] [place] [address] PCP - General 05/14/20 documented as of this encounter
--- OUTSIDE RECORDS SUMMARY | 2025-07-12 12:40 | EXTERNAL MEDICAL SUMMARY RPT | Encounter Summary ---
Author Organization [facility] Address [address] [place] [address] Care Team Providers Care Cone Machine Feeder Name Role Phone Silverio Lucero PA-C Primary Care Provider [phone] Reason for Visit * Reason Comments Outside Records Encounter Details Date Type Department Care Team ([facility] Contact Info) Description 09/17/2020 Notes Encounter (No LOS) [facility] [address] [place] [address] Lois Landis MA Outside Records Social History Tobacco Use Types [...] Procedure Name Priority Date/Time Associated Diagnosis Comments COVID-19 PCR (OUTSIDE/HISTORICAL) Routine 09/14/2020 documented in this encounter Results * COVID-19 PCR (OUTSIDE/HISTORICAL) (09/14/2020) COVID-19 PCR (OUTSIDE/HISTO RICAL) Negative us Unspecified Provider OUTSIDE/HISTORICAL Final Re sult documented in this encounter Visit Diagnoses Not on filedocumented in this encounter Care Teams Cone Machine Feeder Relationship Specialty Start Date End Date Silverio Lucero PA-C [address] [place] [address] PCP - General 05/14/20 documented as of this encounter
--- OUTSIDE RECORDS SUMMARY | 2025-07-12 12:40 | EXTERNAL MEDICAL SUMMARY RPT | Encounter Summary ---
Author Organization [facility] Address [address] [place] [address] Care Team Providers Care Machine Bunch Maker Name Role Phone Silverio Lucero PA-C Primary Care Provider [phone] Reason for Visit * Reason Comments Medication Adherence MTMP (MEDICATION THERAPY MANAGEMENT) Encounter Details Date Type Department Care Team ([facility] Contact Info) Description 07/08/2025 Telephone Clinical Pharmacy Services [address] [place] [address] Megan Aden PhT Medication Adherence; MTMP (MEDICATION THERAPY MANAGEMENT) Social History Tobacco Use Types Packs/Day Years [...] encounter Miscellaneous Notes * Telephone Encounter - Megan Aden PhT - 07/10/2025 9:35 AM PST UPDATE THIS FYI IF THE MEDICATION(S) ARE REFILLED OR WITH REASON FOR DECLINING. DO NOT DELETE THE FYI. Thank you, , We partner with your care team to support your health. I have a message that you are due for a refill of Lisinopril . May I refill that for you today? (Encourage a 90-day supply.) Outreach attempt made to offer refill of Lisinopril to support or maintain good medication adherence. Please direct patient call backs to [facility] pharmacy adherence team . UNABLE TO REACH NOTE: Interview Medication Adherence Review Left message to call * Telephone Encounter - Megan Aden PhT - 07/09/2025 1:16 PM PST UPDATE THIS FYI IF THE MEDICATION(S) ARE REFILLED OR WITH REASON FOR DECLINING. DO NOT DELETE THE FYI. Thank you, , We partner with your care team to support your health. I have a message that you are due for a refill of Lisinopril . May I refill that for you today? (Encourage a 90-day supply.) Outreach attempt made to offer refill of Lisinopril to support or maintain good medication adherence. Please direct patient call backs to [facility] pharmacy adherence team . UNABLE TO REACH NOTE: Interview Medication Adherence Review Left message to call * Telephone Encounter - Megan Aden PhT - 07/08/2025 9:54 AM PST UPDATE THIS FYI IF THE MEDICATION(S) ARE REFILLED OR WITH REASON FOR DECLINING. DO NOT DELETE THE FYI. Thank you, , We partner with your care team to support your health. I have a message that you are due for a refill of Lisinopril . May I refill that for you today? (Encourage a 90-day supply.) Outreach attempt made to offer refill of Lisinopril to support or maintain good medication adherence. Please direct patient call backs to [facility] pharmacy adherence team . UNABLE TO REACH NOTE: Interview Medication Adherence Review Left message to call documented in this encounter Plan of Treatment Not on file documented as of this encounter Visit Diagnoses Not on filedocumented in this encounter Care Teams Machine Bunch Maker Relationship Specialty Start Date End Date Silverio Lucero PA-C [address] [place] [address] PCP - General 05/14/20 documented as of this encounter
--- OUTSIDE RECORDS SUMMARY | 2025-07-12 12:40 | EXTERNAL MEDICAL SUMMARY RPT | Encounter Summary ---
Author Organization [facility] Address [address] [place] [address] Care Team Providers Care Commissioner Of Relocation Services Name Role Phone Silverio Lucero PA-C Primary Care Provider [phone] Reason for Referral * Radiology (Routine) - Authorized Specialty Diagnoses / Procedures Referred By Contact Referred To Contact Radiology Interventional Diagnoses Malignant tumor of kidney, left Procedures REF INTERVENTIONAL RADIOLOGY - EXTERNAL ABLTJ 1+ RNL ROSANNE PRQ UNI RF CT GUIDANCE &MONITORING VISC TISS ABLATION Aashish Campbell [address] [place] [address] Phone: tel:[phone] fax:[phone] Ps, Pl[facility] [place] [address] [facility] [address] [place] [address] Referral ID Status Reason Start Date Expiration Date Visits Requested Visits Authorized [id number] Authorized Procedure Only 03/25/2025 03/25/2026 1 1 Encounter Details Date Type Department Care Team (Late st Contact Info) Description 03/25/2025 Community Orders Non [facility] Provider Aashish Campbell [address] [phone] Malignant tumor of kidney, left (Primary Dx) Social History Tobacco Use Types [...] as of this encounter Visit Diagnoses Diagnosis Malignant tumor of kidney, left- Primary documented in this encounter Care Teams Commissioner Of Relocation Services Relationship Specialty Start Date End Date Silverio Lucero PA-C [address] [place] [address] PCP - General 05/14/20 documented as of this encounter
--- OUTSIDE RECORDS SUMMARY | 2025-07-12 12:40 | EXTERNAL MEDICAL SUMMARY RPT | Encounter Summary ---
Author Organization [facility] Address [address] [place] [address] Care Team Providers Care Engineering Designer Name Role Phone Silverio Lucero PA-C Primary Care Provider [phone] Encounter Details Date Type Department Care Team ([facility] Contact Info) Description 02/18/2025 Automated Patient Message [address] [phone] Social History Tobacco Use Types Packs/Day Years [...] on filedocumented in this encounter Care Teams Engineering Designer Relationship Specialty Start Date End Date Silverio Lucero PA-C [address] [place] [address] PCP - General 05/14/20 documented as of this encounter
--- OUTSIDE RECORDS SUMMARY | 2025-07-12 12:40 | EXTERNAL MEDICAL SUMMARY RPT | Encounter Summary ---
Author Organization [facility] Address [address] [place] [address] Care Team Providers Care Turn Laster Name Role Phone Silverio Lucero PA-C Primary Care Provider [phone] Encounter Details Date Type Department Care Team ([facility] Contact Info) Description 11/13/2023 Automated Patient Message [address] [phone] Social History Tobacco Use Types Packs/Day Years [...] on filedocumented in this encounter Care Teams Turn Laster Relationship Specialty Start Date End Date Silverio Lucero PA-C [address] [place] [address] PCP - General 05/14/20 documented as of this encounter
--- OUTSIDE RECORDS SUMMARY | 2025-07-12 12:40 | EXTERNAL MEDICAL SUMMARY RPT | Encounter Summary ---
Author Organization [facility] Address [address] [address] Care Team Providers Care Redeye Gunner Name Role Phone Silverio Lucero PA-C Primary Care Provider [phone] Reason for Visit * Reason Comments Refill Request Encounter Details Date Type Department Care Team ([facility] st Contact Info) Description 12/08/2023 Refill [facility] [address] [place] [address] Silverio Lucero PA-C [address] [place], [place] [phone] Refill Request Social History Tobacco Use Types [...] encounter Miscellaneous Notes * Telephone Encounter - Raina Agee MD - 12/10/2023 9:13 AM PDTSigned Prescriptions: Disp Refills clopidogreL (PLAVIX) 75 mg tablet 30 tab*1 Sig: Take 1 tablet (75 mg) by mouth daily Authorizing Provider: RAINA AGEE * Telephone Encounter - Carole Nelson RPh - 12/09/2023 5:09 PM PDTPending Prescriptions: Disp Refills clopidogreL (PLAVIX) 75 mg tablet [Pharmac*30 tab*0 Sig: take 1 tablet by mouth once daily * Telephone Encounter - Carole Nelson RPh - 12/09/2023 5:09 PM PDT Refill(s) are unable to be approved by the Centralized Refill Management Program as the requested medication(s) requires provider review and authorization. Please review request and take appropriate action. If medication is denied or additional follow up is needed, please work with your care team to notify patient. Carole Nelson RPh Centralized Refill Management. Associated lab work not found. 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
--- OUTSIDE RECORDS SUMMARY | 2025-07-12 12:40 | EXTERNAL MEDICAL SUMMARY RPT | Encounter Summary ---
Author Organization [facility] Address [address] [place] [address] Care Team Providers Care Footwear Stitcher Name Role Phone Silverio Lucero PA-C Primary Care Provider [phone] Encounter Details Date Type Department Care Team ([facility] Contact Info) Description 07/03/[address] [facility] [address] [place] [address] Silverio Lucero PA-C [address] [place], [place] [phone] Social History Tobacco Use Types Packs/Day Years [...] on filedocumented in this encounter Care Teams Footwear Stitcher Relationship Specialty Start Date End Date Silverio Lucero PA-C [address] [place], [place] [phone] PCP - General 05/14/20 documented as of this encounter
--- OUTSIDE RECORDS SUMMARY | 2025-07-12 12:40 | EXTERNAL MEDICAL SUMMARY RPT | Encounter Summary ---
Author Organization [facility] Address [address] [place] [address] Care Team Providers Care Benefits Assistant Name Role Phone Silverio Lucero PA-C Primary Care Provider [phone] Encounter Details Date Type Department Care Team ([facility] Contact Info) Description 01/01/2025 [facility] Tele[facility] Encounter Primary Care Appointing [...] on filedocumented in this encounter Care Teams Benefits Assistant Relationship Specialty Start Date End Date Silverio Lucero PA-C [address] [place] [address] PCP - General 05/14/20 documented as of this encounter
--- OUTSIDE RECORDS SUMMARY | 2025-07-12 12:40 | EXTERNAL MEDICAL SUMMARY RPT | Encounter Summary ---
Author Organization [facility] Address [address] [place] [address] Care Team Providers Care Mine Laborer Name Role Phone Silverio Lucero PA-C Primary Care Provider [phone] Encounter Details Date Type Department Care Team ([facility] Contact Info) Description 06/25/2025 Scanned Document Ext Family Practice [facility] [address] [place] [phone] Emergency Dept. Document Social History Tobacco Use [...] on filedocumented in this encounter Care Teams Mine Laborer Relationship Specialty Start Date End Date Silverio Lucero PA-C [facility] [place], [place] [id number] PCP - General 05/14/20 documented as of this encounter
--- OUTSIDE RECORDS SUMMARY | 2025-07-12 12:40 | EXTERNAL MEDICAL SUMMARY RPT | Clinical Summary ---
Author Organization [facility] Address [address] [address] Care Team Providers Care Sales Support Advisor Name Role Phone Silverio Lucero PA-C Primary Care Provider [phone] Source Comments NOTE: The information displayed by Care Everywhere is extracted from the complete medical record and may not identify all current or past patient conditions.[facility] Allergies Active Allergy Reactions Criticality Noted Date Comments Codeine Nausea Medium 11/01/2018 Codeine Sulfate Unknown 07/07/2022 Morphine Anaphylaxis High 11/01/2018 Pt states that she "coded" when administered this medication Sulfa (Sulfonamide Antibiotics) Unknown Medium 11/01/2018 Valproic Acid Nausea,Vomit 05/03/2019 Medications oxyCODONE (ROXICODONE) 15 mg tablet Take 15 mg by mouth daily Suspended LORazepam (ATIVAN) 0.5 mg tablet Take 0.5 mg by mouth daily as needed Suspended cholecalciferol (VITAMIN D3) 25 mcg (1,000 unit) tablet Take 1,000 units by mouth daily 022 Suspended hydroCHLOROthiazide (HYDRODIURIL) 25 mg tabletIndications:Essen tial hypertension Take 1 tablet (25 mg) by mouth daily 90 tablet 024 Suspended Additional Information Patient not taking.Reported on 05/11/2025 fluticasone propion-salmeteroL (WIXELA INHUB) 500-50 mcg/dose disk powder for inhalationIndications:C OPD with asthma,Chronic respiratory failure with hypoxia and hypercapnia Inhale 1 puff 2 times daily 60 each 11 10/21/19 25 1:38 PM PDT Suspended aspirin 81 mg delayed release tablet Take 81 mg by mouth daily Suspended pantoprazole (PROTONIX) 20 mg delayed release tabletIndications:Prima ry hypertension,Gastroesop hageal reflux disease with esophagitis without hemorrhage Take 2 tablets (40 mg) by mouth daily 180 tablet 2 Suspended atorvastatin (LIPITOR) 20 mg tabletIndications:Pure hypercholesterolemia take 2 tablet by mouth every evening 180 tablet 3 025 2025 Suspended lisinopriL (PRINVIL) 20 mg tabletIndications:Prima ry hypertension Take 1 tablet (20 mg) by mouth 2 times daily 180 tablet 2 02/19/20 25 3:27 PM PDT 025 2025 Suspended tiotropium bromide (SPIRIVA RESPIMAT) 2.5 mcg/actuation inhalerIndications:COPD with asthma,Chronic respiratory failure with hypoxia and hypercapnia Inhale 2 puffs (5 mcg) daily 4 g 8 02/12/20 11:27 AM PDT 025 2025 Suspended ipratropium-albuteroL (DUONEB) 0.5 mg-3 mg/3 mL neb solutionIndications:Mod erate persistent asthmatic bronchitis with acute exacerbation Inhale contents of 1 vial (1 ampule) via nebulizer every 4 hours as needed 270 mL 03/25/20 25 7:23 PM PDT 025 2025 Suspended fluticasone propionate (FLONASE) 50 mcg/actuation nasal sprayIndications:Acute non-recurrent maxillary sinusitis Use 2 sprays in each nostril daily 1 each 04/08/20 8:16 AM PDT 025 2025 Suspended Additional Information Patient not taking.Reported on 05/11/2025 amLODIPine (NORVASC) 2.5 mg tabletIndications:Prima ry hypertension Take 1 tablet (2.5 mg) by mouth daily 90 tablet 3 04/12/20 25 7:44 AM PDT 025 2025 Suspended budesonide (RHINOCORT ALLERGY) 32 mcg/actuation nasal sprayIndications:Acute non-recurrent maxillary sinusitis Use 1 spray in each nostril daily 8.43 mL 025 2025 Suspended Additional Information Patient not taking.Reported on 05/11/2025 clopidogreL (PLAVIX) 75 mg tabletIndications: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 angina pectoris Take 1 tablet (75 mg) by mouth daily 30 tablet 5 025 2025 Suspended albuterol (PROVENTIL HFA) 90 mcg/actuation inhalerIndications:SOB (shortness of breath),Chronic obstructive pulmonary disease, unspecified COPD type Inhale 2 puffs every 4 to 6 hours as needed for shortness of breath/wheezi ng 20.1 g 5 07/01/20 7:13 PM PST 2025 Suspended budesonide (PULMICORT RESPULES) 0.25 mg/2 mL neb suspensionIndications:P oorly controlled severe persistent asthma with acute exacerbation Inhale contents of 1 vial (2 mL) via nebulizer daily 60 mL 06/29/20 7:22 PM PST 2025 Suspended carvediloL (COREG) 12.5 mg tabletIndications:Prima ry hypertension Take 1 tablet (12.5 mg) by mouth 2 times daily 60 tablet 5 04/30/20 3:08 PM PDT 2025 Suspended naloxone (NARCAN) 4 mg/actuation nasal spray Use 4 mg in each nostril Suspended nitroGLYCERIN (NITROSTAT) 0.4 mg sublingual tablet Dissolve 0.4 mg under the tongue every 5 minutes as needed 023 Suspended ipratropium bromide (ATROVENT) 21 mcg (0.03 %) nasal sprayIndications:Rhinor ramon Use 2 sprays in each nostril 2 to 3 times daily 30 mL 025 2025 Suspended nitroGLYCERIN (NITROSTAT) 0.4 mg sublingual tabletIndications:Coron chase artery disease involving lower sioux heart, unspecified vessel or lesion type, unspecified whether angina present Dissolve 1 tablet under the tongue every 5 minutes up to 3 doses; if no relief after second dose call 911. 100 tablet 05/24/20 3:04 PM PDT 025 2025 Suspended Active Problems Problem Noted Date Diagnosed Date History of kidney cancer 06/09/2025 Chronic respiratory failure with hypoxia and hyp ercapnia 01/15/2024 COPD with asthma 01/15/2024 Nontraumatic intracerebral hemorrhage, unspecifi ed 07/02/2022 Sacroiliitis, not elsewhere classified Severe protein-calorie malnutrition 12/09/2020 Asthma, severe persistent, poorly-controlled Assessment & Plan (04/07/2025 1:39 PM PDT): No current exacerbation or respiratory distress. Essential hypertension 01/02/2020 Adrenal mass 01/02/2020 Chronic, continuous use of opioids 01/02/2020 Heterozygous alpha 1-antitrypsin deficiency 12/05 Overview (12/28/2023): Last Assessment & Plan: Interval History & Assessment: Plan: Last Assessment & Plan: Interval History & Assessment: Plan: Assessment & Plan (03/02/2021 8:53 AM PDT): Interval History & Assessment: Plan: Latent tuberculosis 03/07/2019 Lung nodules 03/07/2019 History of hyperparathyroidism 01/10/2019 Overview (01/10/2019): S/p 3 gland parathyroidectomy for hyperplasia 10/2016 CASE: [id number] PATIENT: Lois Medrano Pathology Report [id number] FINAL DIAGNOSIS: A: Left inferior parathyroid, excision: Hypercellular parathyroid tissue (139 mg). No malignancy identified. B: Left superior parathyroid, excision: Hypercellular parathyroid tissue (157 mg). No malignancy identified. C: Right superior parathyroid, excision: Hypercellular parathyroid tissue (85 mg). No malignancy identified. Lumbar stenosis with neurogenic claudication Hypertension 09/11/2016 CARE/CASE MANAGEMENT 03/17/2016 Overview (03/17/2016): Program: [facility] Contact and Location: Ashley Vargas RN, [facility] Group Health Care Management Admit date: 02/16/2016 Discharge date: S/P lumbar fusion 11/29/2011 Resolved Problems Problem Noted Date Diagnosed Date Resolved Date Pulmonary emphysema, unspeci fied emphysema type 01/02/2020 09/01/2020 Hyperparathyroidism 01/09/2019 01/11/20 19 Pulmonary emphysema 09/11/2016 09/01/19 21 Overview (01/09/2019): Overview: Problem List Title Clerk Utility Encounters Date Type Department Care Team Description 07/10/[address] [phone] Silverio Lucero PA-C Outside Records (For Test Results: Test Result 07/10/2025 -"XR Chest 1V" and [facility]) 07/09/2025 [facility] Telephone Encounter [facility] [address] [place] [address] Yaron Gardner MA 07/08/2025 Telephone [facility] [address] [place] [address] Megan Aden PhT Medication Adherence; MTMP (MEDICATION THERAPY MANAGEMENT) 07/03/2025 Telephone [place] [address] [place] [address] Silverio Lucero PA-C 07/03/[address] [phone] Silverio Lucero PA-C Outside Records (Lab results - [facility] - 06/25/2025) 07/01/2025 Telephone Mail Order Pharmacy [address] [place] [address] Chadwick Haro [facility] Medication Consult 06/30/2025 [facility] Telephone Encounter [address] [phone] Danyell Resendiz MD Care Coordination 06/29/2025 Scanned Document Ext Emergency Medicine Richard Nathaniel L Emergency Dept. Document 06/29/2025 [facility] Telephone Encounter [address] [phone] Yaron Gardner MA Care Coordination 06/26/2025 Telephone Care Management [address] [address] Kimberly Haynes RN Medication Reconciliation (Post Hospital) 06/25/2025 Scanned Document Ext Family Practice Joseph Victor Emergency Dept. Document 06/24/2025 [facility] Telephone Encounter [address] [phone] Irma Spencer MA Outside Records 06/24/[address] [phone] Silverio Lucero PA-C Outside Records ([facility] 06/23/2025 Scanned Document Ext Unspecified Discharge Summary 06/22/[address] [phone] Silverio Lucero PA-C Outside Records [facility]) 06/21/2025 Scanned Document Ext Unspecified Consultation-Hospital 06/20/2025 Scanned Document Ext Unspecified Consultation-Hospital 06/19/2025 Scanned Document Ext Unspecified Consultation-Hospital 06/18/[address] [phone] Silverio Lucero PA-C Form Completion ([facility] 06/18/[address] [phone] Silverio Lucero PA-C Outside Records (Records -[facility] - 06/17/2025) 06/17/2025 Scanned Document Ext Unspecified Consultation-Hospital 06/17/2025 Telephone Primary Care Appointing Center Unspecified Message Center Call; Referral 06/17/2025 Telephone [facility] [address] [place] [phone] Silverio Lucero PA-C Outside Records (Records - [facility] - 06/16/2025) 06/16/2025 Scanned Document Ext Unspecified Consultation-Hospital 06/15/2025 Scanned Document Ext Unspecified Consultation-Hospital 06/15/2025 [facility] Tele[facility] Encounter Primary Care Appointing Center Unspecified 06/15/2025 Notes Encounter (No LOS) [facility] [address] [place] [phone] Tyron Head MD 06/14/2025 Scanned Document Ext Unspecified Consultation-Hospital 06/13/2025 Scanned Document Ext Unspecified Consultation-Hospital 06/13/2025 Telephone [facility] [address] [place] [phone] Silverio Lucero PA-C Outside Records (Chart note / 06/12/2025 / [facility] ) 06/12/2025 3:56 PM PST - 06/23/2025 11:59 PM PST Hospital Encounter [facility] - INPATIENT [facility] [address] [place] [address] Virtual, Generic Provider - Inpatient Discharge Disposition: Other - not listed elsewhere 06/12/2025 Scanned Document Ext Unspecified Various: CONSULT-HOSP,H&P 06/12/2025 [facility] Telephone Encounter [facility] [address] [place] [phone] Silverio Lucero PA-C Chronic Obstructive Pulmonary Disease 06/09/2025 Orders Only [facility] [address] [place] [phone] Jagjit Arechiga MD History of kidney cancer (Primary Dx) 06/08/2025 [facility] Telephone Encounter [facility] [address] [place] [phone] Juhi Shell, harvest manager 06/08/2025 [facility] Telephone Encounter [facility] [address] [place] [address] Jagjit Arechiga MD [facility] Call 05/27/[address] [phone] Irma Spencer MA Outside Records 05/22/2025 [facility] Telephone Encounter [facility] [address] [place] [phone] Jamie Larose MD Refill Request 05/19/2025 Scanned Document Ext Family [facility] Bettye Galvez Emergency Dept. Document 05/19/2025 [facility] Telephone Encounter Consulting Nurse [address] [place] [address] Rea Estrella RN DRIP MOLDER MISCELLANEOUS 05/19/[address] [phone] Silverio Lucero PA-C Outside Records 05/19/[address] [phone] Silverio Lucero PA-C Outside Records 05/19/[address] [phone] Silverio Lucero PA-C Outside Records 05/16/2025 Scanned Document Ext Emergency Medicine Karlo Valencia Emergency Dept. Document 05/11/2025 10:20 AM PDT Office Visit [address] [phone] Silverio Lucero PA-C Chronic obstructive pulmonary disease, unspecified COPD type (Primary Dx); Rhinorrhea; Malignant neoplasm of kidney, unspecified laterality; Nausea 04/30/[address] [phone] Silverio Lucero PA-C Lab/test Results 04/28/2025 Scanned Document Ext Family [facility] Bettye Galvez Emergency Dept. Document 04/28/[address] [phone] Silverio Lucero PA-C Refill Request 04/27/[address] [phone] Silverio Lucero PA-C Refill Request 04/27/2025 Refill [facility] [address] [phone] Silverio Lucero PA-C Refill Request 04/27/[address] [phone] Silverio Lucero PA-C Refill Request 04/25/[address] [phone] Silverio Lucero PA-C Refill Request 04/20/2025 LAB Unsolicited Results [facility] Unsolicited Results Aashish Campbell 04/17/2025 [facility] Telephone Encounter [facility] [address] [place] [phone] Bayron Malone LPN 04/17/[address] [phone] Silverio Lucero PA-C Outside Records (Visit notes / 04/16/2025 - [facility] ) 04/16/2025 [facility] Telephone Encounter [address] [phone] Silverio Lucero PA-C Med Mgmt from Last 3 Months Immunizations Immunization Administration Dates Next Due *CELL BASED SYRINGE* FluCELV AX (6+ mos) QUAD 05/02/2018 *HIGH DOSE SYRINGE* FluZONE (65+ yrs) TRI 2023 *VIAL* FluZONE/FluLAVAL (3+ yrs) QUAD 05/17/2017 Herpes Zoster (SHINGRIX) 10/03/2024,10/29/2023 Influenza Vaccine, Quadrival ent, Adjuvanted (FLUAD QUAD) 07/02/2022 Influenza, unspecified formulation 07/02/2022 PCV13 (PREVNAR 13, Pneumococ leo Conjugate Vaccine 13 Valent) 10/02/2018 PCV20 (PREVNAR 20, Pneumococ leo Conjugate Vaccine 20-Valent) 10/29/2023 PPV23 (PNEUMOVAX 23, Pneumoc occal Polysaccharide Vaccine) 05/17/2017 Pfizer SARS-CoV-2 Vaccinatio n (12 + y/o) (PURPLE CAP) 07/19/2021,11/06/2020,10/16/2020 Pfizer SARS-CoV-2 Vaccinatio n (COMIRNATY) (12+ y/o) 06/24/2024 Tdap (Tetanus, Diphtheria, a cellular Pertussis) 05/17/2017 Social History Tobacco Use Types Packs/Day Years Used Date Smoking Tobacco: Former Cigarettes 0.5 9 0 01/05/2000 - 01/04/2009 Hookah Passive Smoke Exposure: Past Smokeless Tobacco: Never Tobacco Cessation:Counseling Given: Not Answered Alcohol Use Standard Drinks/Week Comments Not Currently 0 (1 standard drink = 0.6 oz pur e alcohol) Comments No Sex and Gender Information Value Date Recorded Sex Assigned at Not on file Legal Sex Female 12:58 PM PST Gender Identity Not on file Sexual Orientation Not on file Last Filed Vital Signs Vital Sign Reading Time Taken Comments Blood Pressure 139/95 06/30/2025 11:37 AM PST Pulse 107 06/30/2025 11:37 AM PST Temperature 36.6 C (97.9 F) 06/30/2025 11:37 AM PST Respiratory Rate 18 06/30/2025 11:37 AM PST Oxygen Saturation 96% 06/30/2025 11:37 AM PST Inhaled Oxygen Concentration - - Weight 38.4 kg (84 lb 9.6 oz) 05/11/2025 10:19 A M PDT Height 160 cm (5' 3") 01/15/2024 11:03 AM PDT Body Mass Index 14.99 01/15/2024 11:03 AM PDT Plan of Treatment Health Maintenance Due Date Last Done Comments Personal Assessment of Total Health (PATH) 1955 Breast Cancer Screening: Mammogram 01/09/2021 01/09/2019, 03/19/2017, 02/26/2017, Additional history exists Health Profile 2022 Blood Pressure Check 07/01/2025 06/30/2025 FLU VACCINE (#1) 05/11/2026 06/24/2024, , 07/02/2022, Additional history exists Postponed from 04/06/2025 (Patient declined) Vaccine: COVID-19 ( season) 2026 06/24/2024, 07/19/2021, 11/06/2020, Additional history exists Postponed from 04/06/2025 (Patient declined) Vaccine: RSV (1 - Risk 60-74 years 1-dose series) 05/11/2026 Postponed fro m 2017 (Patient declined) Vaccine: [id number] (2 - Td or Tdap) 05/17/2027 05/17/2017 COL-S Colonoscopy 05/22/2028 05/22/2018 Hep C Screening (1-time) Completed 10/18/2022 Vaccine: Pneumococcal Completed 10/29/2023 , 10/02/2018, 05/17/2017 Vaccine: Shingles Completed 10/03/2024, 10/29/2023 Procedures * The patient is currently admitted. The information in this section might not be complete until the patient is discharged. Procedure Name Priority Date/Time Associated Diagnosis Comments LAB REPORT 06/29/2025 12:00 AM PST LAB REPORT 06/29/2025 12:00 AM PST LAB REPORT 06/25/2025 12:00 AM PST LAB REPORT 06/25/2025 12:00 AM PST IMAGING REPORT 06/20/2025 12:00 AM PST IMAGING REPORT 06/13/2025 12:00 AM PST IMAGING REPORT 06/12/2025 12:00 AM PST BILIRUBIN TOTAL (OUTSIDE/HISTORICAL) Routine 05/17/2025 ALT (OUTSIDE/HISTORICAL) Routine 05/17/2025 AST (OUTSIDE/HISTORICAL) Routine 05/17/2025 ALBUMIN (OUTSIDE/HISTORICAL) Routine 05/17/2025 CARBON DIOXIDE (OUTSIDE/HISTORICAL) Routine 05/17/2025 CALCIUM (OUTSIDE/HISTORICAL) Routine 05/17/2025 SODIUM (OUTSIDE/HISTORICAL) Routine 05/17/2025 POTASSIUM (OUTSIDE/HISTORICAL) Routine 05/17/2025 CREATININE (OUTSIDE/HISTORICAL) Routine 05/17/2025 GLUCOSE (OUTSIDE/HISTORICAL) Routine 05/17/2025 LAB REPORT 05/17/2025 12:00 AM PDT LAB REPORT 05/17/2025 12:00 AM PDT LAB REPORT 05/17/2025 12:00 AM PDT IMAGING REPORT 05/17/2025 12:00 AM PDT IMAGING REPORT 05/17/2025 12:00 AM PDT LAB REPORT 04/28/2025 12:00 AM PDT LAB REPORT 04/28/2025 12:00 AM PDT LAB REPORT 04/28/2025 12:00 AM PDT LAB REPORT 04/28/2025 12:00 AM PDT IMAGING REPORT 04/28/2025 12:00 AM PDT PATH REPORT, CELLNETIX Routine 04/20/2025 10:58 AM PDT ANTIBODY, HEPATITIS C Routine 10/18/2022 2:46 PM PDT Need for hepatitis C screening test MAMMO SCREENING MAMMOGRAM, BILATERAL Routine 01/09/2019 11:40 AM PDT from Last 3 Months or Most Recently Relevant to Health Maintenance Results * LAB REPORT (06/29/2025 12:00 AM PST) Only the most recent of11 resultswithin the time period is included. us Nathaniel Ramos I/F ORD-BASED TRANSCRIPTIONS Fi nal Result * IMAGING REPORT (06/20/2025 12:00 AM PST) Only the most recent of6 resultswithin the time period is included. Anatomical Region Laterality Modality Other us Unspecified Provider I/F ORD-BASED LINOTYPE MECHANIC S Final Result * BILIRUBIN TOTAL (OUTSIDE/HISTORICAL) (05/17/2025) BILIRUBIN, TOTAL (OUTSIDE/HISTOR ICAL) 1.6 mg/dL us Unspecified Provider OUTSIDE/HISTORICAL Final Re sult * ALT (OUTSIDE/HISTORICAL) (05/17/2025) ALT (OUTSIDE/HISTOR ICAL) 11 U/L us Unspecified Provider OUTSIDE/HISTORICAL Final Re sult * AST (OUTSIDE/HISTORICAL) (05/17/2025) AST (OUTSIDE/HISTOR ICAL) 15 U/L us Unspecified Provider OUTSIDE/HISTORICAL Final Re sult * ALBUMIN (OUTSIDE/HISTORICAL) (05/17/2025) Albumin 3.7 us Unspecified Provider OUTSIDE/HISTORICAL Final Re sult * CARBON DIOXIDE (OUTSIDE/HISTORICAL) (05/17/2025) Co2OH 38 mEq/L us Unspecified Provider OUTSIDE/HISTORICAL Final Re sult * CALCIUM (OUTSIDE/HISTORICAL) (05/17/2025) CALCIUM (OUTSIDE/HISTOR ICAL) 9.6 mg/dL us Unspecified Provider OUTSIDE/HISTORICAL Final Re sult * SODIUM (OUTSIDE/HISTORICAL) (05/17/2025) SODIUM (OUTSIDE/HISTOR ICAL) 133 mEq/L us Unspecified Provider OUTSIDE/HISTORICAL Final Re sult * POTASSIUM (OUTSIDE/HISTORICAL) (05/17/2025) POT 4.1 mEq/L us Unspecified Provider OUTSIDE/HISTORICAL Final Re sult * CREATININE (OUTSIDE/HISTORICAL) (05/17/2025) CREATININE (OUTSIDE/HISTORI LEO) 0.7 mg/dL us Unspecified Provider OUTSIDE/HISTORICAL Final Re sult * GLUCOSE (OUTSIDE/HISTORICAL) (05/17/2025) GLUCOSE (OUTSIDE/HISTOR ICAL) 111 mg/dL us Unspecified Provider OUTSIDE/HISTORICAL Final Re sult * PATH REPORT, CELLNETIX (04/20/2025 10:58 AM PDT) 04/20/2025 10:5 8 AM PDT 04/20/2025 5:27 PM PDT Narrative CELLNETIX - 04/21/2025 5:13 PM PDT CASE: [id number] PATIENT: Lois Medrano Pathology Report [id number] FINAL DIAGNOSIS: Left kidney, needle core biopsy: Renal cell carcinoma, papillary type Histologic grade (WHO/ISUP): grade 2 CLINICAL INFORMATION: ICD code(s): C64.2. GROSS DESCRIPTION: A: Received in formalin, labeled with the patient's name and "kidney, left" per requisition, are five cores 0.3-0.9 cm long and 0.1 cm in diameter, entirely submitted in A1 and a 0.5 x 0.5 x 0.1 cm aggregate of bennett soft tissue fragments entirely submitted in A2.(lmw/VR) INTRADEPARTMENTAL CONSULTATION: Ness Kidd MD, PhD IMMUNOHISTOCHEMISTRY STUDY: Methodology: Formalin-fixed, paraffin embedded tissue and appropriate positive and negative controls are visualized using a polymer-based detection system. Unless otherwise noted, all controls were reviewed and met expectations. Results are outlined below: Source: Block A2 Population: Cells of interest Antibody Result Comment CK7 Positive CA9 Focally positive CD117 Negative Interpreted by: Brennan Alcantara M.D.,Ph.D Comment: These immunohistochemical tests were developed and performance characteristics determined by [facility]. They have not been cleared or approved by the U.S. Food and Drug Administration. The FDA does not require this test to go through premarket FDA review. These tests may be used for clinical purposes. They should not be regarded as investigational or for research use only. [facility] is certified under the Clinical Laboratory Improvement Amendments (CLIA) as qualified to perform high complexity clinical laboratory testing. Brennan Alcantara M.D.,Ph.D. Electronically signed 04/21/2025 17:10 Performed at [facility] [place] [address], CLIA#: [id number] Patient Day Coordinator: Cassie Ram MD Microscopic: Unless otherwise specified, a microscopic exam has been performed. Aashish Campbell PATHOLOGY Final Result [facility] [address] [place] [address] * HEPATITIS C SCREENING (REFLEX) ([facility]) (10/18/2022 2:46 PM PDT) HEPATITIS C ANTIBODY NEGATIVE NEGATIVE [facility] BLOOD 10/18/2022 2:46 PM PDT 10/18/2022 10:03 PM PDT Bing Elise MD LABORATORY Final Res ult [facility] [address] [place] [address] [facility] [address] [place] [address] * MAMMO SCREENING MAMMOGRAM, BILATERAL (01/09/2019 11:40 AM PDT) Anatomical Region Laterality Modality Other 01/09/2019 11:4 0 AM PDT Impressions 01/10/2019 1:51 PM PDT IMPRESSION: BILATERAL BREAST - CATEGORY 1 Negative, no evidence of malignancy. Normal interval follow-up is recommended at this time. OVERALL ASSESSMENT - NEGATIVE END OF IMPRESSION Signed by: Nasir Concepcion Date: 01/10/2019 1:51 PM Narrative 01/10/2019 1:51 PM PDT [HST]: screening Screening digital bilateral mammography 01/09/2019 11:40 AM Images are interpreted with CAD assistance. Comparison is made to films from February and March 2017. Bilateral Breast Findings: The breasts are heterogeneously dense. This may lower the sensitivity of mammography. No significant masses, calcifications or other abnormalities are seen. 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
--- OUTSIDE RECORDS SUMMARY | 2025-07-12 12:40 | EXTERNAL MEDICAL SUMMARY RPT | Encounter Summary ---
Author Organization [facility] Address [address] [place] [address] Care Team Providers Care Energy Technician Name Role Phone Silverio Lucero PA-C Primary Care Provider [phone] Reason for Visit * Reason Comments Message Center Call Symbicort Missing Encounter Details Date Type Department Care Team (Latest Contact Info) Description [facility] Tele[facility] Encounter [facility] [address] [place] [address] Unspecified Message Center Call (Symbicort Missing) Social History Tobacco Use Types Packs/Day Years [...] encounter Miscellaneous Notes * Telephone Encounter - Johnna Thomas - 12/27/2023 5:09 PM PDT Good evening! Patient was called this evening for an unrelated cardiology referral and requested I message her PCP team- She states that when she was most recently hospitalized, she discharged and realized her symbicort was missing. She is requesting a refill from her PCP since she does not have an extra. Johnna Cardio Gastro PAR documented in this encounter Plan of Treatment Not on file documented as of this encounter Visit Diagnoses Not on filedocumented in this encounter Care Teams Energy Technician Relationship Specialty Start Date End Date Silverio Lucero PA-C [address] [place] [address] PCP - General 05/14/20 documented as of this encounter
--- OUTSIDE RECORDS SUMMARY | 2025-07-12 12:40 | EXTERNAL MEDICAL SUMMARY RPT | Encounter Summary ---
Author Organization [facility] Address [address] [place] [address] Care Team Providers Care Hospital Insurance Representative Name Role Phone Silverio Lucero PA-C Primary Care Provider [phone] Reason for Visit * Reason Comments Referral Care Coordination Encounter Details Date Type Department Care Team (Latest Contact Info) Description 07/06/2022 [facility] Telephone Encounter [facility] [address] [place] [address] Unspecified Referral; Care Coordination Social History Tobacco Use Types [...] Telephone Encounter - Kera Floyd LPN - 07/06/2022 11:55 AM PST FYI ONLY - Please done from your inbox and/or close encounter after review Two identifiers used to confirm patient identity: name and Called and spoke with spouse, Oliverio. Pt provided verbal permission to speak with regarding her health care. Let know that we do see pt is being admitted to services following her recent discharge from [facility]. Offered to schedule a hospital f/u. Pt and are agreeable tothis. Appt now scheduled with Dr. Jomar Sandoval on 07/11/22 at [facility]. * Telephone Encounter - Ange Reyes - 07/06/2022 11:21 AM PST Complaint: Patient doesn't want to provide information/Clinic call back/message provider/or doesn'tfit another clinical SmartPhrase History: Lois Medrano is a 67 year old patient. Barbara from [facility] is calling to report that they will be starting services for the patient tomorrow, 07/07/22. RESEARCH ASSOCIATE QUALITY CONTROL QC Hot Line Criteria: None Additional Call Information (If red flags) “With these concerns I need to connect you to the Consulting Nurse line. If you feel that this is a life threatening emergency, please hang up and dial 911. Please hold on the line while I transfer you to the Consulting Nurse."- Transfer to [facility] RESEARCH ASSOCIATE QUALITY CONTROL QC RN Hotline (in [facility] phone book) Additional Call Information Recommended Outcome: Patient wants to speak to Care team regarding treatment or follow up, send TE Was Member's reason for call resolved? Non-Appt Issue (TE to provider, Rx Refill, Referral Request,Covid Results/Testing, etc) Final Outcome: Sent a TE to Care Team/RESEARCH ASSOCIATE QUALITY CONTROL QC Do you need to send this TE to the Care Team? Yes: Referral -- Name of specialty: Home Health PCP: Silverio Lucero PA-C [facility] Additional Comments: Best timeframe to call: Anytime OK to leave a detailed message: Yes OK to contact via [facility] member website: No Additional phone number: documented in this encounter Plan of Treatment Not on file documented as of this encounter Visit Diagnoses Not on filedocumented in this encounter Care Teams Hospital Insurance Representative Relationship Specialty Start Date End Date Silverio Lucero PA-C [facility] [place] [address] PCP - General 05/14/20 documented as of this encounter
--- OUTSIDE RECORDS SUMMARY | 2025-07-12 12:40 | EXTERNAL MEDICAL SUMMARY RPT | Encounter Summary ---
Author Organization [facility] Address [address] [place] [address] Care Team Providers Care System Safety Engineer Name Role Phone Silverio Lucero PA-C Primary Care Provider [phone] Reason for Visit * Reason Comments [facility] Encounter Details Date Type Department Care Team ([facility] Contact Info) Description 06/22/2025 [facility] [address] [place] [address] Silverio Lucero PA-C [address] [place], [place] [phone] [facility] Social History Tobacco Use Types Packs/Day Years [...] Telephone Encounter - Kathi Pereyra MA - 06/22/2025 4:12 PM PST Images from the original note were not included. * Telephone Encounter - Karena Steinberg - 06/22/2025 9:17 AM PST Reddy, The following record has been received: Record Located: Forwarded to provider via [employer] medicx folder Received from: [employer] DOS: 06/21/2025 Type of Record: Outside Chart Note Additional Information: Thank you. Bev Steinberg Patient Complaint Adjuster [facility] documented in this encounter Plan of Treatment Not on file documented as of this encounter Visit Diagnoses Not on filedocumented in this encounter Care Teams System Safety Engineer Relationship Specialty Start Date End Date Silverio Lucero PA-C [address] [place] [address] PCP - General 05/14/20 documented as of this encounter
--- OUTSIDE RECORDS SUMMARY | 2025-07-12 12:41 | EXTERNAL MEDICAL SUMMARY RPT | Encounter Summary ---
Author Organization [facility] Address [address] [place] [address] Care Team Providers Care Business Process Lead Name Role Phone Silverio Lucero PA-C Primary Care Provider [phone] Reason for Referral * Outpatient Service (Routine) - Closed Specialty Diagnoses / Procedures Referred By Contac t Referred To Contact Pain Management Diagnoses Chronic low back pain, unspecified back pain laterality, unspecified whether sciatica present Procedures REF INTERVENTIONAL PAIN MANAGEMENT (ANESTHESIA,SPINAL,EPIDURAL ) OFFICE VISIT E&M EST MOD-HI SEVERITY [address] [place] [address] Phone: tel: fax: [facility] [address] [address] [place] [address] Referral ID Status Reason Start Date Expiration Date V isits Requested Visits Authorized [id number] Closed Evaluate and Treat-Surgery if Indicated 07/20/2020 07/20/2021 6 6 Encounter Details Date Type Department Care Team (Late st Contact Info) Description 07/20/2020 Community Orders Non [facility] Provider Nelly Dockery MD [address] [place] [address] Chronic low back pain, unspecified back pain laterality, unspecified whether sciatica present (Primary Dx) Social [...] of this encounter Visit Diagnoses Diagnosis Chronic low back pain, unspecified back pain laterality, unspecified whether sciatica present- Primary documented in this encounter Care Teams Business Process Lead Relationship Specialty Start Date End Date Silverio Lucero PA-C [address] [place] [address] PCP - General 05/14/20 documented as of this encounter
--- OUTSIDE RECORDS SUMMARY | 2025-07-12 12:41 | EXTERNAL MEDICAL SUMMARY RPT ---
Author Organization [facility] Address [address] [place] [address] Care Team Providers Care Septic Tank Setter Name Role Phone Silverio Lucero PA-C Primary Care Provider [phone] Medication Therapy Management Status:Enrolled (Active) Start date:02/10/2025 Enrollment date:02/10/2025 Case Team Name Relationship Phone Mil Turner PharmD(Responsible Staff) [phone] Continued Care and Services Coordination
--- OUTSIDE RECORDS SUMMARY | 2025-07-12 12:41 | EXTERNAL MEDICAL SUMMARY RPT | Encounter Summary ---
Author Organization [facility] Address [address] [place] [address] Care Team Providers Care Band Saw Marker Name Role Phone Silverio Lucero PA-C Primary Care Provider [phone] Reason for Referral * Surgical Services (Routine) - Closed Specialty Diagnoses / Procedures Referred By Contac t Referred To Contact Pain Management Diagnoses Other spondylosis, lumbar region Procedures REF INTERVENTIONAL PAIN MANAGEMENT (ANESTHESIA,SPINAL,EPIDURAL ) INJ(S), ANESTHETIC AGENT(S) AND/OR STEROID; TRIGEMINAL NRV, EA BRANCH Jacques Shipman MD [facility] [address] [place] [address] Phone: tel: [facility] [address] [address] [place] [address] Referral ID Status Reason Start Date Expiration Date V isits Requested Visits Authorized [id number] Closed Procedure Only 08/09/2020 08/09/2021 3 3 Encounter Details Date Type Department Care Team (Late st Contact Info) Description 08/09/2020 Community Orders Non [facility] Provider Jacques Shipman MD [facility] [address] [place] [address] Other spondylosis, lumbar region (Primary Dx) Social History Tobacco Use Types [...] as of this encounter Visit Diagnoses Diagnosis Other spondylosis, lumbar region- Primary documented in this encounter Care Teams Band Saw Marker Relationship Specialty Start Date End Date Silverio Lucero PA-C [address] [place] [address] PCP - General 05/14/20 documented as of this encounter
--- OUTSIDE RECORDS SUMMARY | 2025-07-12 12:41 | EXTERNAL MEDICAL SUMMARY RPT | Clinical Summary ---
Author Organization Unknown Care Team Providers Care Technical Inspector Name Role Phone JOSE ACCERES, PERRY Unavailable Unavailable ATTWOOD OT, ERMA Unavailable Unavailable IRA GRADE TAMPER, DANITZA Unavailable Unavailable TAQUERIA ST, RADHA Unavailable Unavailable CORY PT, LETY Unavailable Unavailable JOSE TUMBLING BARREL PAINTER, SEFERINO Unavailable Unavailable MANE RN, DARREN Unavailable Unavailable KARSTEN DAWNN, PHILLY Unavailable Unavailabl e Payers Payer Name Policy Type Policy Number Effective Date Expira tion Date [facility] [id number] Problems Condition Name Condition Details Condition Category [...] 2024-08 00:00: 00 ATHSCL HEART DISEASE OF [place] CORONARY ARTERY W/O ANG PCTRS Active 2024-08 [...] ON SUPPLEMENTAL OXYGEN Active 2024-08 00:00: 00 FINISH REMOVER (CURRENT) USE OF ANTITHROMBOT ICS/ANTIPLAT ELETS Active [...] HAVE REVIEWED THE CLINICAL NOTE FOR THE JQKS-IP-[id number] ENCOUNTER FOR THE PATIENT IDENTIFIED HEREIN, WHICH IS RELATED TO THE PRIMARY REASON THE PATIENT REQUIRES HOME HEALTH SERVICES AND WHICH NOTE IS CLINICALLY CONSISTENT WITH MY MEDICAL RECORD FOR THE PATIENT. I HEREBY INCORPORATE THE CLINICAL NOTE FOR THE [id number] ENCOUNTER FOR THE PATIENT INTO MY MEDICAL RECORD FOR THE PATIENT. [code = I , THE UNDERSIGNED CERTIFYING PHYSICIAN, HAVE REVIEWED THE CLINICAL NOTE FOR THE [id number] ENCOUNTER FOR THE PATIENT IDENTIFIED HEREIN, WHICH IS RELATED TO THE PRIMARY REASON THE PATIENT REQUIRES HOME HEALTH SERVICES AND WHICH NOTE IS CLINICALLY CONSISTENT WITH MY MEDICAL RECORD FOR THE PATIENT. I HEREBY INCORPORATE THE CLINICAL NOTE FOR THE TORA-PU-BWIZ ENCOUNTER FOR THE PATIENT INTO MY MEDICAL [...] AND FOLLOW ORDERS FROM PROVIDERS ASSOCIATED WITH [facility] [code = IF THE PATIENT DEVELOPS ANY [...] AND FOLLOW ORDERS FROM PROVIDERS ASSOCIATED WITH [facility]] Goal Patient Goal - G ET BACK [...] End Date/Time Encounter Type Admission Type Attending [facility] Care Department Encounter ID Discharge Date Discharge Status Discharge Condition Discharge Reason Percent Goals Met 2025-07-01 00:00:00 2025-08-29 00:00:00 Outpatient NEW ADMISSION [facility] [id number] 75.00
--- OUTSIDE RECORDS SUMMARY | 2025-07-12 12:41 | EXTERNAL MEDICAL SUMMARY RPT | Encounter Summary ---
Author Organization [facility] Address [address] [place] [address] Care Team Providers Care Electronics Engineering Technician Name Role Phone Silverio Lucero PA-C Primary Care Provider [phone] Encounter Details Date Type Department Care Team ([facility] Contact Info) Description 02/07/2022 [facility] [address] [place] [address] Lizeth Melara [place] [address] [place] [address] Social History Tobacco Use Types Packs/Day Years [...] Procedure Name Priority Date/Time Associated Diagnosis Comments ALT (OUTSIDE/HISTORICAL) Routine 01/28/2022 SODIUM (OUTSIDE/HISTORICAL) Routine 01/28/2022 POTASSIUM (OUTSIDE/HISTORICAL) Routine 01/28/2022 CREATININE (OUTSIDE/HISTORICAL) Routine 01/28/2022 documented in this encounter Results * ALT (OUTSIDE/HISTORICAL) (01/28/2022) ALT (OUTSIDE/HISTOR ICAL) 11 U/L us Unspecified Provider OUTSIDE/HISTORICAL Final Re sult * SODIUM (OUTSIDE/HISTORICAL) (01/28/2022) SODIUM (OUTSIDE/HISTOR ICAL) 129 mEq/L us Unspecified Provider OUTSIDE/HISTORICAL Final Re sult * POTASSIUM (OUTSIDE/HISTORICAL) (01/28/2022) POT 3.3 mEq/L us Unspecified Provider OUTSIDE/HISTORICAL Final Re sult * CREATININE (OUTSIDE/HISTORICAL) (01/28/2022) CREATININE (OUTSIDE/HISTORI RACHEL) 0.7 mg/dL us Unspecified Provider OUTSIDE/HISTORICAL Final Re sult documented in this encounter Visit Diagnoses Not on filedocumented in this encounter Care Teams Electronics Engineering Technician Relationship Specialty Start Date End Date Silverio Lucero PA-C [address] [place] [address] PCP - General 05/14/20 documented as of this encounter
--- OUTSIDE RECORDS SUMMARY | 2025-07-12 12:41 | EXTERNAL MEDICAL SUMMARY RPT | Encounter Summary ---
Author Organization [facility] Address [address] [place] [address] Care Team Providers Care Pit Inspector Name Role Phone Silverio Lucero PA-C Primary Care Provider [phone] Reason for Visit * Reason Comments Outside Records For Test Results: Te st Result 07/10/2025 -"XR Chest 1V" and [facility] Encounter Details Date Type Department Care Team (Late st Contact Info) Description 07/10/2025 [facility] [address] [place] [phone] Silverio Lucero PA-C [address] [place], [place] [phone] Outside Records (For Test Results: Test Result 07/10/2025 -"XR Chest 1V" and [facility]) Social History Tobacco Use Types Packs/Day [...] on filedocumented in this encounter Care Teams Pit Inspector Relationship Specialty Start Date End Date Silverio Lucero PA-C [address] [place] [address] PCP - General 05/14/20 documented as of this encounter
--- OUTSIDE RECORDS SUMMARY | 2025-07-12 12:41 | EXTERNAL MEDICAL SUMMARY RPT | Encounter Summary ---
Author Organization [facility] Address [address] [place] [address] Care Team Providers Care Soccer Ball Assembler Name Role Phone Silverio Lucero PA-C Primary Care Provider [phone] Reason for Referral * Mental Health OP (Routine) - Closed Specialty Diagnoses / Procedures Referred By Contindio t Referred To Contact Psychiatry, Adult Diagnoses Major depressive disorder, single episode, moderate Anxiety state, unspecified Procedures REF MENTAL HEALTH EXTERNAL (FOR MH PROVIDERS ONLY) PSYCHOTHERAPY 45 MIN PATIENT WITH MEDICAL SV[facility] Teresa Olivier [employer] [address] [address] Phone: tel: [facility] [address] [place] [phone] Referral ID Status Reason Start Date Expiration Date V isits Requested Visits Authorized [id number] Closed Itemized Services 03/22/2021 03/22/2022 12 12 Encounter Details Date Type Department Care Team (Late st Contact Info) Description 02/15/2022 Community Orders Non [facility] Provider Teresa Olivier [employer] [id number] [place] [address] [place] [phone] Major depressive disorder, single episode, moderate (Primary Dx); Anxiety state, unspecified Social History Tobacco Use Types Packs/Day Years [...] as of this encounter Visit Diagnoses Diagnosis Major depressive disorder, single episode, moderate- Primary Anxiety state, unspecified documented in this encounter Care Teams Soccer Ball Assembler Relationship Specialty Start Date End Date Silverio Lucero PA-C [address] [place] [address] PCP - General 05/14/20 documented as of this encounter
--- OUTSIDE RECORDS SUMMARY | 2025-07-12 12:41 | EXTERNAL MEDICAL SUMMARY RPT | Continuity of Care Document ---
Author Organization [facility] Luiz Perez [facility] Address [address] [place] [address] Phone Care Team Providers Care Esol Teacher Assistant Name Role Phone ZConversion, Provider Unavailable Unavailabl e Allergies, Adverse Reactions, Alerts Substance Reaction Status Criticality codeine HivesHives Active No Information morphine Anaphylaxis Active No Information Sulfa (Sulfonamide Antibiotics) Other Active No Information Medications Medication Instructions Dosage Effective Dates (start - stop) Status Comments ipratropium 0.5 mg-albuterol 3 mg (2.5 mg base)/3 mL nebulization soln inhale contents of 1 vial ( 3 milliliters ) in nebulizer by mouth and INTO THE LUNGS four times a day if needed - Active clotrimazole 10 mg patience TAKE 1 tablet( s) 5 times a day by oral route for 7 days - Active lisinopril 20 mg tablet Take 1 tablet by mouth daily - Active Spiriva with HandiHaler 18 mcg and inhalation capsules INHALE 1 capsule(s) every day by inhalation route - Active ProAir HFA 90 mcg/actuation aerosol inhaler INHALE 2 puff(s) every 4 hours by inhalation route as needed - Active gabapentin 600 mg tablet TAKE 1 tablet(s ) 2 times a day by ORAL route - Active lorazepam 1 mg tablet TAKE 1 tablet(s) every day by ORAL route - Active ropinirole 1 mg tablet take 1 tablet by oral route every day - Active nortriptyline 50 mg capsule take 4 capsule by oral route every day - Active gabapentin 600 mg tablet take 1 tablet b y oral route 3 times every day - Active trazodone 100 mg tablet take 1 - 2 table t by oral route every evening as needed for sleep - Active cyclobenzaprine 10 mg tablet take 1 tablet by oral route 2 times every day - Active oxycodone 15 mg tablet take 1 tablet by oral route every 8 hours - Active calcitriol take 1 capsule by oral route every day - Active naloxone 4 mg/actuation nasal spray TAKE 0 spray(s) by NASAL route - Active metoclopramide HCl take 1 tablet by oral route 4 times every day 30 minutes before meals and at bedtime - Active Vitamin B-12 5,000 mcg/mL sublingual drops every other day - Active Vitamin D2 50,000 unit capsule take 1 capsule by oral route every week - Active ipratropium 0.5 mg-albuterol 3 mg (2.5 mg base)/3 mL nebulization soln inhale contents of 1 vial ( 3 milliliters ) in nebulizer by mouth and INTO THE LUNGS four times a day if needed - No Longer Active ipratropium 0.5 mg-albuterol 3 mg (2.5 mg base)/3 mL nebulization soln inhale contents of 1 vial ( 3 milliliters ) in nebulizer by mouth and INTO THE LUNGS four times a day if needed - No Longer Active ipratropium 0.5 mg-albuterol 3 mg (2.5 mg base)/3 mL nebulization soln INHALE 3 mL 4 times a day by nebulization route as needed - No Longer Active ipratropium 0.5 mg-albuterol 3 mg (2.5 mg base)/3 mL nebulization soln INHALE 3 mL 4 times a day by nebulization route as needed - No Longer Active azithromycin 250 mg tablet TAKE 2 TABLETS (500 MG) BY ORAL ROUTE ONCE DAILY FOR 1 DAY THEN 1 TABLET (250 MG) BY ORAL ROUTE ONCE DAILY FOR 4 DAYS - No Longer Active prednisone 20 mg tablet TAKE 2 tablet(s) every day by oral route - No Longer Active Flovent HFA 110 mcg/actuation aerosol inhaler INHALE 2 puff(s) 2 times a day by inhalation route - No Longer Active Spiriva with HandiHaler 18 mcg and inhalation capsules INHALE 1 capsule(s) every day by inhalation route - No Longer Active ProAir HFA 90 mcg/actuation aerosol inhaler INHALE 2 puff(s) every 4 hours by inhalation route as needed - No Longer Active lisinopril 20 mg tablet Take 1 tablet by mouth daily - No Longer Active hydrochlorothiazide 25 mg tablet Take 1 tablet(s) every day by oral route. - No Longer Active yfdnsrsk-vrnzwxcqx-nsevck ort 3.5 mg-10,000 unit/mL-1 % ear drops,susp INSTILL 4 DROPS INTO AFFECTED EAR(S) BY OTIC ROUTE 3 TIMES PER DAY - No Longer Active hydrocortisone-acetic acid 1 %-2 % ear drops INSTILL 2 DROPS INTO AFFECTED EAR(S) BY OTIC ROUTE 4 TIMES PER DAY - No Longer Active loratadine 10 mg tablet 1 tablet once daily as needed for itching - No Longer Active hydrochlorothiazide 25 mg tablet Take 1 tablet(s) every day by oral route. - No Longer Active lisinopril 20 mg tablet Take 1 tablet by mouth daily - No Longer Active Flovent HFA 110 mcg/actuation aerosol inhaler INHALE 2 puff(s) 2 times a day by inhalation route - No Longer Active hydrochlorothiazide 25 mg tablet Take 1 tablet by mouth daily - No Longer Active baclofen 20 mg tablet TAKE 1 tablet(s) every 12 hours by oral route as needed - No Longer Active lisinopril 20 mg tablet Take 1 tablet by mouth daily - No Longer Active hydrochlorothiazide 25 mg tablet 1qd - No Longer Active cyclobenzaprine 10 mg tablet TAKE 1 tablet(s) 3 times a day by oral route as needed - No Longer Active methocarbamol 500 mg tablet TAKE 1 tablet(s) every 8 hours by oral route as needed - No Longer Active hydrochlorothiazide 25 mg tablet 1qd - No Longer Active lisinopril 20 mg tablet Take 1 tablet by mouth daily - No Longer Active hydrochlorothiazide 25 mg tablet 1qd - No Longer Active Qvar 80 mcg/actuation Metered Aerosol oral inhaler inhale 2 puffs 2 times daily - No Longer Active lisinopril 20 mg tablet Take 1 tablet(s) every day by oral route. - No Longer Active methocarbamol 500 mg tablet TAKE 1 tablet(s) every 8 hours by oral route as needed - No Longer Active ProAir HFA 90 mcg/actuation aerosol inhaler INHALE 2 puff(s) every 4 hours by inhalation route as needed - No Longer Active hydrochlorothiazide 25 mg tablet 1qd - No Longer Active Spiriva with HandiHaler 18 mcg and inhalation capsules INHALE 1 capsule(s) every day by inhalation route - No Longer Active lisinopril 20 mg tablet Take 1 tablet(s) every day by oral route. - No Longer Active omeprazole 20 mg capsule,delayed release TAKE 1 capsule(s) every day by oral route before meals - No Longer Active hydrochlorothiazide 25 mg tablet 1 po qd - No Longer Active lisinopril 20 mg tablet take 1 tablet by oral route every day - No Longer Active omeprazole 20 mg capsule,delayed release take 1 capsule by oral route every day before a meal - No Longer Active lisinopril 20 mg tablet take 1 tablet by oral route every day - No Longer Active ranitidine 150 mg tablet take 1 tablet b y oral route 2 times every day - No Longer Active azithromycin 250 mg tablet take 2 tablet by oral route every day for 1 day then 1 tablet (250 mg) by oral route once daily for 4 days - No Longer Active ondansetron 8 mg disintegrating tablet take 1 tablet by oral route every 8 hours for [address] on top of the tongue where it will dissolve, then swallow - No Longer Active lisinopril 20 mg tablet take 1 tablet by oral route every day - No Longer Active Flovent HFA 220 mcg/actuation aerosol inhaler inhale 2 puff by inhalation route 2 times every day - No Longer Active lisinopril 20 mg tablet take 1 tablet by oral route every day - No Longer Active ranitidine 150 mg tablet take 1 tablet b y oral route 2 times every day - No Longer Active lisinopril 20 mg tablet take 1 tablet by oral route every day - No Longer Active ranitidine 150 mg tablet take 1 tablet b y oral route 2 times every day - No Longer Active albuterol sulfate HFA 90 mcg/actuation aerosol inhaler inhale 2 puff by inhalation route every 4 - 6 hours as needed - No Longer Active ondansetron 8 mg disintegrating tablet take 1/2 tablet by oral route every [address] on top of the tongue where it will dissolve, then swallow prn - No Longer Active lisinopril 20 mg tablet take 1 tablet by oral route every day - No Longer Active ondansetron HCl 8 mg tablet take 1/2 tablet by oral route every 8 hours prn - No Longer Active lisinopril 20 mg tablet take 1 tablet by oral route every day - No Longer Active lisinopril 20 mg tablet take 1 tablet by oral route every day - No Longer Active Vitamin D2 50,000 unit capsule take 1 capsule by oral route every week - No Longer Active aspirin 81 mg tablet,delayed release take 1 tablet by oral route every day - No Longer Active potassium chloride ER 10 mEq capsule,extended release take 1 capsule by oral route every day with pill - No Longer Active Lasix 20 mg tablet take 1 tablet by oral route every day - No Longer Active omeprazole 40 mg capsule,delayed release take 1 capsule by oral route every day before a meal - No Longer Active Microspacer use w inhaler - No Longer Active albuterol sulfate HFA 90 mcg/actuation aerosol inhaler inhale 2 puff by inhalation route every 4 - 6 hours as needed - No Longer Active nortriptyline 75 mg capsule TAKE 1 capsule(s) every day by ORAL route - No Longer Active Augmentin 875 mg-125 mg tablet TAKE 1 tablet(s) every 12 hours by ORAL route - No Longer Active prednisone 10 mg tablet 10 day titration - No Longer Active omeprazole 20 mg capsule,delayed release TAKE 1 capsule(s) every day by ORAL route - No Longer Active lisinopril 20 mg tablet TAKE 1 tablet(s) every day by ORAL route - No Longer Active hydrochlorothiazide 25 mg tablet TAKE 1 tablet(s) every day by ORAL route - No Longer Active methadone 10 mg tablet take 1 Tablet by Oral route every 8 hours for severe chronic pain, total of 11 tabs per day - No Longer Active omeprazole 40 mg capsule,delayed release take 1 capsule by oral route every day before a meal - No Longer Active Results Test Name Date and Time Measure Units Reference Range Abnormal Flag Status Comments Panel Description: PTH (PARA THYROID HORMONE), INTACT, SERUM OR PLASMA Unknown PTH, INTACT 10:20:00 52 pg/mL 15-65 Unknown Panel Description: TSH, ULTRA-SENSITIVE, SERUM Unknown TSH 10:20:00 0.652 uIU/mL 0.450-4.500 Unknown Panel Description: UNKNOWN Unknown CALCIUM, IONIZED, SERUM 14:23:00 1.21 1.17-1.32 Unknown Panel Description: UNKNOWN Unknown CHOLESTEROL, TOTAL 10:41:00 163 100-199 Unknown COMMENT: 10:41:00 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 BI[employer]Y Unknown HDL CHOLESTEROL 10:41:00 44 >39 Unknown LDL CHOLESTEROL CALC 10:41:00 99 0-99 Unknown TRIGLYCERIDES 10:41:00 99 0-149 Unknown VLDL CHOLESTEROL RACHEL 10:41:00 20 5-40 Unknown Panel Description: UNKNOWN Unknown VITAMIN D, 25-HYDROXY 12:17:00 12.5 30.0-100.0 L Unknown Panel Description: UNKNOWN Unknown FERRITIN, SERUM 12:45:00 61 ng/mL 15-150 Unknown IRON 12:45:00 44 ug/dL 27-139 Unknown IRON BIND.CAP.(TIBC) 12:45:00 253 ug/dL 250-450 Unknown IRON SATURATION 12:45:00 17 % 15-55 Unknown PREALBUMIN 12:45:00 26 mg/dL 10-36 Unknown RETICULOCYTE COUNT 12:45:00 1.6 % 0.6-2.6 Unknown UIBC 12:45:00 209 ug/dL 118-369 Unknown Panel Description: BMP, SERUM OR PLASMA Unknown BUN 08:05:00 9 mg/dL 8-27 Unknown BUN/CREATININE RATIO 08:05:00 13 12-28 Unknown CALCIUM 08:05:00 9.6 mg/dL 8.7-10.3 Unknown CARBON DIOXIDE, TOTAL 08:05:00 25 mmol/L 20-29 Unknown CHLORIDE 08:05:00 88 mmol/L 96-106 L Unknown CREATININE 08:05:00 0.72 mg/dL 0.57-1.00 Unknown EGFR IF AFRICN AM 08:05:00 105 mL/min/1. 73 >59 Unknown EGFR IF NONAFRICN AM 08:05:00 91 mL/min/1. 73 >59 Unknown GLUCOSE 08:05:00 91 mg/dL 65-99 Unknown POTASSIUM 08:05:00 3.9 mmol/L 3.5-5.2 Unknown SODIUM 08:05:00 130 mmol/L 134-144 L Unknown Panel Description: CMP, SERUM OR PLASMA Unknown A/G RATIO 10:20:00 2.0 1.2-2.2 Unknown ALBUMIN 10:20:00 4.9 g/dL 3.6-4.8 H Unknown ALKALINE PHOSPHATASE 10:20:00 82 IU/L 39-117 Unknown ALT (SGPT) 10:20:00 9 IU/L 0-32 Unknown AST (SGOT) 10:20:00 18 IU/L 0-40 Unknown BILIRUBIN, TOTAL 10:20:00 0.9 mg/dL 0.0-1.2 Unknown BUN 10:20:00 6 mg/dL 8-27 L Unknown BUN/CREATININE RATIO 10:20:00 9 12-28 L Unknown CALCIUM 10:20:00 9.8 mg/dL 8.7-10.3 Unknown CARBON DIOXIDE, TOTAL 10:20:00 25 mmol/L 20-29 Unknown CHLORIDE 10:20:00 88 mmol/L 96-106 L Unknown CREATININE 10:20:00 0.69 mg/dL 0.57-1.00 Unknown EGFR IF AFRICN AM 10:20:00 109 mL/min/1. 73 >59 Unknown EGFR IF NONAFRICN AM 10:20:00 94 mL/min/1. 73 >59 Unknown GLOBULIN, TOTAL 10:20:00 2.4 g/dL 1.5-4.5 Unknown GLUCOSE 10:20:00 97 mg/dL 65-99 Unknown POTASSIUM 10:20:00 4.3 mmol/L 3.5-5.2 Unknown PROTEIN, TOTAL 10:20:00 7.3 g/dL 6.0-8.5 Unknown SODIUM 10:20:00 128 mmol/L 134-144 L Unknown Panel Description: UNKNOWN Unknown TSH 12:17:00 1.310 0.450-4.500 Unknown Panel Description: UNKNOWN Unknown REQUEST PROBLEM 00:00:00 TNP Unknown Panel Description: CMP, SERUM OR PLASMA Unknown A/G RATIO 12:45:00 1.7 1.2-2.2 Unknown ALBUMIN 12:45:00 3.9 g/dL 3.8-4.8 Unknown ALKALINE PHOSPHATASE 12:45:00 75 IU/L 39-117 Unknown ALT (SGPT) 12:45:00 18 IU/L 0-32 Unknown AST (SGOT) 12:45:00 17 IU/L 0-40 Unknown BILIRUBIN, TOTAL 12:45:00 0.4 mg/dL 0.0-1.2 Unknown BUN 12:45:00 8 mg/dL 8-27 Unknown BUN/CREATININE RATIO 12:45:00 12 12-28 Unknown CALCIUM 12:45:00 9.4 mg/dL 8.7-10.3 Unknown CARBON DIOXIDE, TOTAL 12:45:00 23 mmol/L 20-29 Unknown CHLORIDE 12:45:00 96 mmol/L 96-106 Unknown CREATININE 12:45:00 0.67 mg/dL 0.57-1.00 Unknown EGFR IF AFRICN AM 12:45:00 109 mL/min/1. 73 >59 Unknown EGFR IF NONAFRICN AM 12:45:00 95 mL/min/1. 73 >59 Unknown GLOBULIN, TOTAL 12:45:00 2.3 g/dL 1.5-4.5 Unknown GLUCOSE 12:45:00 91 mg/dL 65-99 Unknown POTASSIUM 12:45:00 4.9 mmol/L 3.5-5.2 Unknown PROTEIN, TOTAL 12:45:00 6.2 g/dL 6.0-8.5 Unknown SODIUM 12:45:00 134 mmol/L 134-144 Unknown Panel Description: UNKNOWN Unknown B-TYPE NATRIURETIC PEPTIDE 10:41:00 42.9 0.0-100.0 Unknown Panel Description: PTH (PARA THYROID HORMONE), INTACT, SERUM OR PLASMA Unknown PTH, INTACT 14:23:00 94 15-65 H Unknown Panel Description: MAGNESIUM, SERUM OR PLASMA U nknown MAGNESIUM, SERUM 00:00:00 1.9 mg/dL 1.6-2.3 Unknown Panel Description: LIPID PANEL, SERUM Unknown CHOLESTEROL, TOTAL 00:00:00 172 mg/dL 100-199 Unknown COMMENT: 00:00:00 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 Unknown HDL CHOLESTEROL 00:00:00 65 mg/dL >39 Unknown LDL CHOLESTEROL CALC 00:00:00 95 mg/dL 0-99 Unknown TRIGLYCERIDES 00:00:00 60 mg/dL 0-149 Unknown VLDL CHOLESTEROL RACHEL 00:00:00 12 mg/dL 5-40 Unknown Panel Description: MAGNESIUM, SERUM OR PLASMA U nknown MAGNESIUM 00:00:00 2.0 mg/dL 1.6-2.3 Unknown Panel Description: UNKNOWN Unknown CALCIUM, IONIZED, SERUM 10:23:00 1.15 1.17-1.32 L Unknown Panel Description: BMP, SERUM OR PLASMA Unknown BUN 12:36:00 10 mg/dL 8-27 Unknown BUN/CREATININE RATIO 12:36:00 16 12-28 Unknown CALCIUM 12:36:00 9.4 mg/dL 8.7-10.3 Unknown CARBON DIOXIDE, TOTAL 12:36:00 28 mmol/L 20-29 Unknown CHLORIDE 12:36:00 93 mmol/L 96-106 L Unknown CREATININE 12:36:00 0.62 mg/dL 0.57-1.00 Unknown EGFR IF AFRICN AM 12:36:00 113 mL/min/1. 73 >59 Unknown EGFR IF NONAFRICN AM 12:36:00 98 mL/min/1. 73 >59 Unknown GLUCOSE 12:36:00 86 mg/dL 65-99 Unknown POTASSIUM 12:36:00 4.2 mmol/L 3.5-5.2 Unknown SODIUM 12:36:00 133 mmol/L 134-144 L Unknown Panel Description: CMP, SERUM OR PLASMA Unknown A/G RATIO 00:00:00 1.6 1.2-2.2 Unknown ALBUMIN 00:00:00 4.2 g/dL 3.6-4.8 Unknown ALKALINE PHOSPHATASE 00:00:00 75 IU/L 39-117 Unknown ALT (SGPT) 00:00:00 8 IU/L 0-32 Unknown AST (SGOT) 00:00:00 16 IU/L 0-40 Unknown BILIRUBIN, TOTAL 00:00:00 0.7 mg/dL 0.0-1.2 Unknown BUN 00:00:00 7 mg/dL 8-27 L Unknown BUN/CREATININE RATIO 00:00:00 9 12-28 L Unknown CALCIUM 00:00:00 9.5 mg/dL 8.7-10.3 Unknown CARBON DIOXIDE, TOTAL 00:00:00 27 mmol/L 18-29 Unknown CHLORIDE 00:00:00 90 mmol/L 96-106 L Unknown CREATININE 00:00:00 0.77 mg/dL 0.57-1.00 Unknown EGFR IF AFRICN AM 00:00:00 97 mL/min/1. 73 >59 Unknown EGFR IF NONAFRICN AM 00:00:00 84 mL/min/1. 73 >59 Unknown GLOBULIN, TOTAL 00:00:00 2.6 g/dL 1.5-4.5 Unknown GLUCOSE 00:00:00 94 mg/dL 65-99 Unknown POTASSIUM 00:00:00 4.1 mmol/L 3.5-5.2 Unknown PROTEIN, TOTAL 00:00:00 6.8 g/dL 6.0-8.5 Unknown SODIUM 00:00:00 133 mmol/L 134-144 L Unknown Panel Description: BMP, SERUM OR PLASMA Unknown BUN 11:52:00 8 6-24 Unknown BUN/CREATININE RATIO 11:52:00 8 9-23 L Unknown CALCIUM, SERUM 11:52:00 9.5 8.7-10.2 Unknown CARBON DIOXIDE, TOTAL 11:52:00 27 18-29 Unknown CHLORIDE, SERUM 11:52:00 103 97-108 Unknown CREATININE, SERUM 11:52:00 0.97 0.57-1.00 Unknown EGFR IF AFRICN AM 11:52:00 74 >59 Unknown EGFR IF NONAFRICN AM 11:52:00 65 >59 Unknown GLUCOSE, SERUM 11:52:00 78 65-99 Unknown POTASSIUM, SERUM 11:52:00 4.4 3.5-5.2 Unknown SODIUM, SERUM 11:52:00 144 134-144 Unknown Panel Description: MAGNESIUM, SERUM OR PLASMA U nknown MAGNESIUM 00:00:00 2.0 mg/dL 1.6-2.3 Unknown Panel Description: BMP, SERUM OR PLASMA Unknown BUN 11:10:00 11 6-24 Unknown BUN/CREATININE RATIO 11:10:00 13 9-23 Unknown CALCIUM, SERUM 11:10:00 11.1 8.7-10.2 H Unknown CARBON DIOXIDE, TOTAL 11:10:00 30 18-29 H Unknown CHLORIDE, SERUM 11:10:00 91 97-108 L Unknown CREATININE, SERUM 11:10:00 0.85 0.57-1.00 Unknown EGFR IF AFRICN AM 11:10:00 87 >59 Unknown EGFR IF NONAFRICN AM 11:10:00 76 >59 Unknown GLUCOSE, SERUM 11:10:00 102 65-99 H Unknown POTASSIUM, SERUM 11:10:00 3.9 3.5-5.2 Unknown SODIUM, SERUM 11:10:00 137 134-144 Unknown Panel Description: CMP, SERUM OR PLASMA Unknown A/G RATIO 10:41:00 1.2 1.1-2.5 Unknown ALBUMIN, SERUM 10:41:00 3.6 3.5-5.5 Unknown ALKALINE PHOSPHATASE, S 10:41:00 107 39-117 Unknown ALT (SGPT) 10:41:00 14 0-32 Unknown AST (SGOT) 10:41:00 17 0-40 Unknown BILIRUBIN, TOTAL 10:41:00 0.4 0.0-1.2 Unknown BUN 10:41:00 7 6-24 Unknown BUN/CREATININE RATIO 10:41:00 9 9-23 Unknown CALCIUM, SERUM 10:41:00 9.1 8.7-10.2 Unknown CARBON DIOXIDE, TOTAL 10:41:00 27 18-29 Unknown CHLORIDE, SERUM 10:41:00 102 97-108 Unknown CREATININE, SERUM 10:41:00 0.78 0.57-1.00 Unknown EGFR IF AFRICN AM 10:41:00 97 >59 Unknown EGFR IF NONAFRICN AM 10:41:00 84 >59 Unknown GLOBULIN, TOTAL 10:41:00 3.1 1.5-4.5 Unknown GLUCOSE, SERUM 10:41:00 96 65-99 Unknown POTASSIUM, SERUM 10:41:00 3.4 3.5-5.2 L Unknown PROTEIN, TOTAL, SERUM 10:41:00 6.7 6.0-8.5 Unknown SODIUM, SERUM 10:41:00 145 134-144 H Unknown Panel Description: VITAMIN D, 25-HYDROXY, TOTAL, SERUM Unknown VITAMIN D, 25-HYDROXY 00:00:00 29.0 ng/mL 30.0-100.0 L Unknown Panel Description: PTH (PARA THYROID HORMONE), INTACT + CALCIUM, SERUM OR PLASMA Unknown CALCIUM, IONIZED, SERUM 00:00:00 1.22 mmol/L 1.17-1.32 Unknown PTH, INTACT 00:00:00 41 pg/mL 15-65 Unknown Panel Description: CBC Unknown HEMATOCRIT 10:41:00 TNP Unknown HEMOGLOBIN 10:41:00 TNP Unknown MCH 10:41:00 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 Unknown MCHC 10:41:00 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 Unknown MCV 10:41:00 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 Unknown NRBC 10:41:00 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 BI[employer] Unknown PLATELETS 10:41:00 TNP Unknown RBC 10:41:00 TNP Unknown RDW 10:41:00 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 Unknown WBC 10:41:00 TNP Unknown Panel Description: BMP, SERUM OR PLASMA Unknown BUN 12:17:00 9 6-24 Unknown BUN/CREATININE RATIO 12:17:00 10 9-23 Unknown CALCIUM, SERUM 12:17:00 9.3 8.7-10.2 Unknown CARBON DIOXIDE, TOTAL 12:17:00 23 18-29 Unknown CHLORIDE, SERUM 12:17:00 103 97-108 Unknown CREATININE, SERUM 12:17:00 0.86 0.57-1.00 Unknown EGFR IF AFRICN AM 12:17:00 86 >59 Unknown EGFR IF NONAFRICN AM 12:17:00 75 >59 Unknown GLUCOSE, SERUM 12:17:00 73 65-99 Unknown POTASSIUM, SERUM 12:17:00 4.2 3.5-5.2 Unknown SODIUM, SERUM 12:17:00 144 134-144 Unknown Panel Description: CBC Unknown HEMATOCRIT 10:23:00 39.6 34.0-46.6 Unknown HEMOGLOBIN 10:23:00 13.3 11.1-15.9 Unknown MCH 10:23:00 29.9 26.6-33.0 Unknown MCHC 10:23:00 33.6 31.5-35.7 Unknown MCV 10:23:00 89 79-97 Unknown NRBC 10:23:00 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 Unknown PLATELETS 10:23:00 351 150-379 Unknown RBC 10:23:00 4.45 3.77-5.28 Unknown RDW 10:23:00 14.0 12.3-15.4 Unknown WBC 10:23:00 6.4 3.4-10.8 Unknown Panel Description: XR, CHEST, 2 VIEW Unknown Result 15:42:14 Unknown Panel Description: UNKNOWN Unknown TSH 10:23:00 1.040 0.450-4.500 Unknown Panel Description: VITAMIN B12, SERUM Unknown VITAMIN B12 00:00:00 796 pg/mL 232-1245 Unknown Panel Description: CMP, SERUM OR PLASMA Unknown A/G RATIO 10:23:00 1.8 1.2-2.2 Unknown ALBUMIN, SERUM 10:23:00 4.6 3.5-5.5 Unknown ALKALINE PHOSPHATASE, S 10:23:00 78 39-117 Unknown ALT (SGPT) 10:23:00 8 0-32 Unknown AST (SGOT) 10:23:00 16 0-40 Unknown BILIRUBIN, TOTAL 10:23:00 0.5 0.0-1.2 Unknown BUN 10:23:00 7 6-24 Unknown BUN/CREATININE RATIO 10:23:00 9 9-23 Unknown CALCIUM, SERUM 10:23:00 9.8 8.7-10.2 Unknown CARBON DIOXIDE, TOTAL 10:23:00 25 18-29 Unknown CHLORIDE, SERUM 10:23:00 98 96-106 Unknown CREATININE, SERUM 10:23:00 0.78 0.57-1.00 Unknown EGFR IF AFRICN AM 10:23:00 96 >59 Unknown EGFR IF NONAFRICN AM 10:23:00 83 >59 Unknown GLOBULIN, TOTAL 10:23:00 2.6 1.5-4.5 Unknown GLUCOSE, SERUM 10:23:00 69 65-99 Unknown POTASSIUM, SERUM 10:23:00 4.8 3.5-5.2 Unknown PROTEIN, TOTAL, SERUM 10:23:00 7.2 6.0-8.5 Unknown SODIUM, SERUM 10:23:00 139 134-144 Unknown Panel Description: LIPID PANEL, SERUM Unknown CHOLESTEROL, TOTAL 12:45:00 182 mg/dL 100-199 Unknown COMMENT: 12:45:00 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 Unknown HDL CHOLESTEROL 12:45:00 97 mg/dL >39 Unknown LDL CHOLESTEROL CALC 12:45:00 73 mg/dL 0-99 Unknown TRIGLYCERIDES 12:45:00 62 mg/dL 0-149 Unknown VLDL CHOLESTEROL RACHEL 12:45:00 12 mg/dL 5-40 Unknown Panel Description: PTH (PARA THYROID HORMONE), INTACT, SERUM OR PLASMA Unknown PTH, INTACT 10:23:00 49 15-65 Unknown Panel Description: UNKNOWN Unknown VITAMIN B12 12:17:00 416 211-946 Unknown Panel Description: UNKNOWN Unknown BASO (ABSOLUTE) 12:17:00 0.0 0.0-0.2 Unknown BASOS 12:17:00 0 Unknown EOS 12:17:00 3 Unknown EOS (ABSOLUTE) 12:17:00 0.2 0.0-0.4 Unknown HEMATOCRIT 12:17:00 35.9 34.0-46.6 Unknown HEMATOLOGY COMMENTS: 12:17:00 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 Unknown HEMOGLOBIN 12:17:00 11.9 11.1-15.9 Unknown IMMATURE CELLS 12:17:00 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 Unknown IMMATURE GRANS (ABS) 12:17:00 0.0 0.0-0.1 Unknown IMMATURE GRANULOCYTES 12:17:00 0 Unknown LYMPHS 12:17:00 39 Unknown LYMPHS (ABSOLUTE) 12:17:00 2.2 0.7-3.1 Unknown MCH 12:17:00 28.1 26.6-33.0 Unknown MCHC 12:17:00 33.1 31.5-35.7 Unknown MCV 12:17:00 85 79-97 Unknown MONOCYTES 12:17:00 8 Unknown MONOCYTES(ABSOLUT E) 12:17:00 0.5 0.1-0.9 Unknown NEUTROPHILS 12:17:00 50 Unknown NEUTROPHILS (ABSOLUTE) 12:17:00 2.8 1.4-7.0 Unknown NRBC 12:17:00 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 Unknown PLATELETS 12:17:00 286 150-379 Unknown RBC 12:17:00 4.24 3.77-5.28 Unknown RDW 12:17:00 16.1 12.3-15.4 H Unknown WBC 12:17:00 5.7 3.4-10.8 Unknown Panel Description: VITAMIN D, 25-HYDROXY, TOTAL, SERUM Unknown VITAMIN D, 25-HYDROXY 10:20:00 30.7 ng/mL 30.0-100.0 Unknown Panel Description: CBC Unknown HEMATOCRIT 00:00:00 39.4 % 34.0-46.6 Unknown HEMOGLOBIN 00:00:00 13.5 g/dL 11.1-15.9 Unknown MCH 00:00:00 29.3 pg 26.6-33.0 Unknown MCHC 00:00:00 34.3 g/dL 31.5-35.7 Unknown MCV 00:00:00 86 fL 79-97 Unknown NRBC 00:00:00 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 Unknown PLATELETS 00:00:00 343 x10E3/uL 150-379 Unknown RBC 00:00:00 4.60 x10E6/uL 3.77-5.28 Unknown RDW 00:00:00 14.2 % 12.3-15.4 Unknown WBC 00:00:00 6.5 x10E3/uL 3.4-10.8 Unknown Panel Description: LIPID PANEL, SERUM Unknown CHOLESTEROL, TOTAL 10:20:00 203 mg/dL 100-199 H Unknown COMMENT: 10:20:00 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 Unknown HDL CHOLESTEROL 10:20:00 63 mg/dL >39 Unknown LDL CHOLESTEROL CALC 10:20:00 121 mg/dL 0-99 H Unknown TRIGLYCERIDES 10:20:00 94 mg/dL 0-149 Unknown VLDL CHOLESTEROL RACHEL 10:20:00 19 mg/dL 5-40 Unknown Panel Description: UNKNOWN Unknown CHOLESTEROL, TOTAL 10:23:00 207 100-199 H Unknown COMMENT: 10:23:00 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 Unknown HDL CHOLESTEROL 10:23:00 68 >39 Unknown LDL CHOLESTEROL CALC 10:23:00 126 0-99 H Unknown TRIGLYCERIDES 10:23:00 65 0-149 Unknown VLDL CHOLESTEROL RACHEL 10:23:00 13 5-40 Unknown Panel Description: UNKNOWN Unknown TSH 14:23:00 0.728 0.450-4.500 Unknown Panel Description: CMP, SERUM OR PLASMA Unknown A/G RATIO 00:00:00 2.3 1.2-2.2 H Unknown ALBUMIN 00:00:00 4.3 g/dL 3.6-4.8 Unknown ALKALINE PHOSPHATASE 00:00:00 75 IU/L 39-117 Unknown ALT (SGPT) 00:00:00 8 IU/L 0-32 Unknown AST (SGOT) 00:00:00 14 IU/L 0-40 Unknown BILIRUBIN, TOTAL 00:00:00 0.3 mg/dL 0.0-1.2 Unknown BUN 00:00:00 10 mg/dL 8-27 Unknown BUN/CREATININE RATIO 00:00:00 13 12-28 Unknown CALCIUM 00:00:00 9.4 mg/dL 8.7-10.3 Unknown CARBON DIOXIDE, TOTAL 00:00:00 28 mmol/L 18-29 Unknown CHLORIDE 00:00:00 91 mmol/L 96-106 L Unknown CREATININE 00:00:00 0.78 mg/dL 0.57-1.00 Unknown EGFR IF AFRICN AM 00:00:00 96 mL/min/1. 73 >59 Unknown EGFR IF NONAFRICN AM 00:00:00 83 mL/min/1. 73 >59 Unknown GLOBULIN, TOTAL 00:00:00 1.9 g/dL 1.5-4.5 Unknown GLUCOSE 00:00:00 92 mg/dL 65-99 Unknown POTASSIUM 00:00:00 4.1 mmol/L 3.5-5.2 Unknown PROTEIN, TOTAL 00:00:00 6.2 g/dL 6.0-8.5 Unknown SODIUM 00:00:00 131 mmol/L 134-144 L Unknown Panel Description: UNKNOWN Unknown REQUEST PROBLEM 00:00:00 TNP Unknown Panel Description: CBC Unknown HEMATOCRIT 10:20:00 39.6 % 34.0-46.6 Unknown HEMOGLOBIN 10:20:00 13.9 g/dL 11.1-15.9 Unknown MCH 10:20:00 29.9 pg 26.6-33.0 Unknown MCHC 10:20:00 35.1 g/dL 31.5-35.7 Unknown MCV 10:20:00 85 fL 79-97 Unknown NRBC 10:20:00 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 Unknown PLATELETS 10:20:00 379 x10E3/uL 150-379 Unknown RBC 10:20:00 4.65 x10E6/uL 3.77-5.28 Unknown RDW 10:20:00 13.9 % 12.3-15.4 Unknown WBC 10:20:00 6.2 x10E3/uL 3.4-10.8 Unknown Panel Description: UNKNOWN Unknown VITAMIN D, 25-HYDROXY 14:23:00 38.2 30.0-100.0 Unknown Panel Description: TSH, ULTRA-SENSITIVE, SERUM Unknown TSH 00:00:00 0.950 uIU/mL 0.450-4.500 Unknown Panel Description: CALCIUM, IONIZED, QUANT ISE, SERUM OR PLASMA Unknown CALCIUM, IONIZED, SERUM 10:20:00 1.19 mmol/L 1.17-1.32 Unknown Panel Description: LIPID PANEL, SERUM Unknown CHOLESTEROL, TOTAL 00:00:00 191 mg/dL 100-199 Unknown COMMENT: 00:00:00 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 Unknown HDL CHOLESTEROL 00:00:00 67 mg/dL >39 Unknown LDL CHOLESTEROL CALC 00:00:00 101 mg/dL 0-99 H Unknown TRIGLYCERIDES 00:00:00 116 mg/dL 0-149 Unknown VLDL CHOLESTEROL RACHEL 00:00:00 23 mg/dL 5-40 Unknown Panel Description: CBC W/ AUTO DIFF Unknown BASO (ABSOLUTE) 12:45:00 0.0 x10E3/uL 0.0-0.2 Unknown BASOS 12:45:00 0 % NOT ESTAB. Unknown EOS 12:45:00 0 % NOT ESTAB. Unknown EOS (ABSOLUTE) 12:45:00 0.0 x10E3/uL 0.0-0.4 Unknown HEMATOCRIT 12:45:00 37.7 % 34.0-46.6 Unknown HEMATOLOGY COMMENTS: 12:45:00 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 Unknown HEMOGLOBIN 12:45:00 12.9 g/dL 11.1-15.9 Unknown IMMATURE CELLS 12:45:00 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 Unknown IMMATURE GRANS (ABS) 12:45:00 0.1 x10E3/uL 0.0-0.1 Unknown IMMATURE GRANULOCYTES 12:45:00 1 % NOT ESTAB. Unknown LYMPHS 12:45:00 14 % NOT ESTAB. Unknown LYMPHS (ABSOLUTE) 12:45:00 1.6 x10E3/uL 0.7-3.1 Unknown MCH 12:45:00 29.5 pg 26.6-33.0 Unknown MCHC 12:45:00 34.2 g/dL 31.5-35.7 Unknown MCV 12:45:00 86 fL 79-97 Unknown MONOCYTES 12:45:00 10 % NOT ESTAB. Unknown MONOCYTES(ABSOLUT E) 12:45:00 1.1 x10E3/uL 0.1-0.9 H Unknown NEUTROPHILS 12:45:00 75 % NOT ESTAB. Unknown NEUTROPHILS (ABSOLUTE) 12:45:00 8.3 x10E3/uL 1.4-7.0 H Unknown NRBC 12:45:00 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 Unknown PLATELETS 12:45:00 534 x10E3/uL 150-450 H Unknown RBC 12:45:00 4.37 x10E6/uL 3.77-5.28 Unknown RDW 12:45:00 13.5 % 11.7-15.4 Unknown WBC 12:45:00 11.0 x10E3/uL 3.4-10.8 H Unknown Panel Description: UNKNOWN Unknown VITAMIN D, 25-HYDROXY 10:23:00 30.1 30.0-100.0 Unknown Advance Directives Directive Yes / No Effective Date File Name No Information Encounters Encounter Description Practice Location Reason(s) For Visit Diagnoses Date Provider Providers Copied on Encounter [facility], [address] [place] [address], [id number], tel:[phone] [employer]Conversion No Information [employer]Con[employer] Provider. . [facility], [address] [place] [address], [id number], tel:[phone] Historic Immunization Location No Information No Information Family History Family Member Type Diagnosis Age At Onset No Information Immunizations Vaccine Date Status Comments PREVNAR 13 (PF) 0.5 ML INTRAMUSCULAR SYRINGE administered Source: New Immuni zation Record FLUCELVAX QUAD (PF ) 60 MCG (15 MCG X 4)/0.5 ML IM SYRINGE administered Source: New Immuniza tion Record PNEUMOVAX-23 25 MCG/0.5 ML INJECTION SOLUTION administered Source: New Immuniza tion Record AFLURIA QUAD 60 MCG/0.5 ML INTRAMUSCULAR SUSPENSION administered Source: New Immuniza tion Record BOOSTRIX TDAP 2.5 LF UNIT-8 MCG-5 LF/0.5 ML INTRAMUSCULAR SUSPENSION administered Source: New Immuniza tion Record Payers Payer name Insurance type Covered constitution party ID Authoriza tion(s) No Information Social History Type Description Quantity Date Captured Comments Sex Female Smoking Status No Information Vital Signs Date / Time: Height Weight BMI Pulse Rate Blood Pressure Temperature Respiratory Rate Body Surface Area Head Circumference Head Circ. Percentile Wt./Ander. Percentile BMI percentile Pulse Ox Inhaled Ox 1:41 PM 65.00 in 48.489 kg (106.90 lbs) 17.8 0 kg/m eter (2) 113 /min 137/72 mm[Hg] 98.00 F 22 /min 94 % 5:42 AM 65.00 in 53.161 kg (117.20 lbs) 19.5 0 kg/m eter (2) 100 /min 114/76 mm[Hg] 98.30 F 18 /min 94 % 11:28 AM 65.00 in 45.178 kg (99.60 lbs) 16.6 0 kg/m eter (2) 82 /min 164/95 mm[Hg] 98.10 F 94 % 2:04 PM 63.25 in 43.998 kg (97.00 lbs) 17.0 0 kg/m eter (2) 99 /min 105/66 mm[Hg] 98.70 F 18 /min 98 % 2:49 PM 65.00 in 46.629 kg (102.80 lbs) 17.1 0 kg/m eter (2) 95 /min 129/79 mm[Hg] 98.30 F 95 % 1:42 PM 65.00 in 48.670 kg (107.30 lbs) 17.9 0 kg/m eter (2) 95 /min 132/83 mm[Hg] 98.60 F 16 /min 98 % 7:48 PM 63.25 in 42.638 kg (94.00 lbs) 16.5 0 kg/m eter (2) 104 /min 140/82 mm[Hg] 98.40 F 94 % 4:00 PM 63.25 in 94 % 3:30 PM 65.00 in 48.172 kg (106.20 lbs) 17.7 0 kg/m eter (2) 93 /min 94/62 mm[Hg] 98.20 F 96 % 12:51 PM 65.00 in 49.442 kg (109.00 lbs) 18.1 0 kg/m eter (2) 88 /min 94/64 mm[Hg] 98.30 F 20 /min 95 % 5:45 PM 63.25 in 46.085 kg (101.60 lbs) 17.9 0 kg/m eter (2) 88 /min 131/79 mm[Hg] 98.40 F 96 % 2:45 PM 65.00 in 50.802 kg (112.00 lbs) 18.6 0 kg/m eter (2) 88 /min 132/78 mm[Hg] 98.60 F 16 /min 95 % 4:11 PM 63.25 in 46.085 kg (101.60 lbs) 17.9 0 kg/m eter (2) 1:01 PM 65.00 in 45.813 kg (101.00 lbs) 16.8 0 kg/m eter (2) 108 /min 132/83 mm[Hg] 98.20 F 20 /min 95 % 12:56 PM 65.00 in 46.085 kg (101.60 lbs) 16.9 0 kg/m eter (2) 97 /min 111/72 mm[Hg] 98.40 F 92 % 12:33 PM 65.00 in 46.539 kg (102.60 lbs) 17.1 0 kg/m eter (2) 109 /min 113/77 mm[Hg] 98.30 F 20 /min 94 % 2:46 PM 63.25 in 42.728 kg (94.20 lbs) 16.6 0 kg/m eter (2) 99 /min 132/74 mm[Hg] 98.20 F 97 % 12:34 PM 65.00 in 47.174 kg (104.00 lbs) 17.3 0 kg/m eter (2) 87 /min 138/87 mm[Hg] 98.20 F 20 /min 94 % 1:29 PM 65.00 in 48.807 kg (107.60 lbs) 17.9 0 kg/m eter (2) 91 /min 102/69 mm[Hg] 98.60 F 16 /min 95 % 6:31 PM 65.00 in 47.083 kg (103.80 lbs) 17.3 0 kg/m eter (2) 89 /min 116/71 mm[Hg] 98.00 F 20 /min 98 % 6:21 PM 65.00 in 49.623 kg (109.40 lbs) 18.2 0 kg/m eter (2) 103 /min 124/78 mm[Hg] 98.20 F 20 /min 95 % Chief Complaint And Reason For Visit No Information Reason For Referral Reason For Referral No Information History Of Present Illness Encounter Date Complaint History Of Prese nt Illness No Information Functional Status Date Functional Assessmen t No Information Instructions Date Instruction Additional Infor mation No Information Assessments Type Assessment Date No Information Patient Care Teams Name Effective Dates (start - stop) Status Members No Information
[2025-07-13 05:16] LABS: HCT - HEMATOCRIT 36.1 % (37.0-47.0); HGB - HEMOGLOBIN 11.3 g/dL (12.0-16.0); MEAN PLATELET VOLUME 10.1 fL (7.9-10.8); PLT - PLATELET COUNT 287.0 10^3/uL (130-450); RED CELL DISTRIBUTION WIDTH 13.8 % (12.0-15.0)
[2025-07-13 05:24] LABS: VBG BASE EXCESS 7.8 mmol/L (-2 - +2); VBG PCO2 50.3 mmHg (41-51); VBG PH 7.415 (7.31-7.41); VBG PO2 57.3 mmHg (25-47); VBG TOTAL CO2 34.1 mmol/L (24-29)
[2025-07-13 05:25] LABS: VBG PH 7.440 (7.31-7.41)
[2025-07-13 05:35] LABS: BUN - BLOOD UREA NITROGEN 21.0 mg/dL (6-20); CARBON DIOXIDE - CO2 32.0 mmol/L (21-32); CREATININE 0.5 mg/dL (0.6-1.3); GFR - MDRD 123.0 (>89); PHOSPHORUS 2.5 mg/dL (2.5-5.0)
[2025-07-13] MEDS: POTASSIUM CHLORIDE 20 MEQ TABLET PO SCH (08:11)
[2025-07-13] MEDS: MAGNESIUM OXIDE 400 MG TABLET PO ONE (08:11)
--- NOTE | 2025-07-13 08:45 | PROVIDER PROGRESS NOTE ---
Subjective Prog Note Date Prog Note Date: 07/13/25 Prog Note Time: 08:45 Subjective Pt reports feeling: Improved Subjective: Pt declined use of BiPAP overnight. Sats have been satisfactory since, but respirations are still too high to be sustainable. Will work on more BiPAP coaching today and will work towards moving her to [facility]. Current Medications Current Medications Current Medications: Current Medications Generic Name Dose Route Start Last Admin Trade Name Freq PRN Reason Stop Dose Admin Acetaminophen 650 mg 07/10/25 17:34 Acetaminophen 325 Mg Tablet PO Q4HR PRN Pain or Fever > 38C (100.4F) Albuterol/Ipratropium 3 ml 07/10/25 17:00 07/13/25 07:53 Ipratropium/Albuterol 3 Ml Neb INH 3 ml Q4HR ABRAHAM Administration Atorvastatin Calcium 40 mg 07/10/25 21:00 07/12/25 21:04 Atorvastatin 40 Mg Tablet PO 40 mg QPM ABRAHAM Administration Carvedilol 6.25 mg 07/10/25 21:00 07/13/25 08:10 Carvedilol 3.125 Mg Tablet PO 6.25 mg BID ABRAHAM Administration Clopidogrel Bisulfate 75 mg 07/11/25 09:00 07/13/25 08:11 Clopidogrel 75 Mg Tablet PO 75 mg DAILY ABRAHAM Administration Enoxaparin Sodium 30 mg 07/11/25 09:00 07/13/25 08:35 Enoxaparin 30 Mg/0.3 Ml Syringe SUBQ 30 mg DAILY ABRAHAM Administration Famotidine 20 mg 07/10/25 21:00 07/13/25 08:11 Famotidine 20 Mg Tablet PO 20 mg BID ABRAHAM Administration Sodium Chloride 1,000 mls @ 100 mls/hr 07/10/25 18:00 07/13/25 04:41 Normal Saline 0.9% IV 100 mls/hr .Q10H ABRAHAM Administration Lorazepam 0.5 mg 07/10/25 17:07 07/13/25 03:01 Lorazepam 0.5 Mg Tablet PO 0.5 mg TID PRN Administration Anxiety Mirtazapine 15 mg 07/10/25 21:00 07/12/25 21:04 Mirtazapine 15 Mg Tablet PO 15 mg QPM ABRAHAM Administration Ondansetron HCl 4 mg 07/11/25 09:04 Ondansetron Odt 4 Mg Tablet TL Q4HR PRN Nausea / Vomiting Ondansetron HCl 4 mg 07/11/25 09:04 07/11/25 10:27 Ondansetron 4 Mg/2 Ml Vial IVP 4 mg Q4HR PRN Administration Nausea / Vomiting Oxycodone HCl 5 mg 07/10/25 17:34 07/11/25 05:57 Oxycodone 5 Mg Tablet PO 5 mg Q4HR PRN Administration Moderate Pain (Level 4-6) Potassium Chloride 20 meq 07/13/25 08:00 07/13/25 08:11 Potassium Chloride 20 Meq Tablet PO 07/13/25 10:01 20 meq Q2H ABRAHAM Administration Protocol Prednisone 40 mg 07/13/25 09:00 07/13/25 08:35 Prednisone 20 Mg Tablet PO 07/14/25 08:01 40 mg DAILYWM ABRAHAM Administration Sodium Chloride 10 ml 07/10/25 17:00 07/13/25 07:30 Sodium Chloride Flush 0.9% 10 Ml Syringe IVP Not Given 0100,0900,1700 ABRAHAM Sodium Chloride 10 ml 07/10/25 16:34 Sodium Chloride Flush 0.9% 10 Ml Syringe IVP PRN PRN NEEDED PER PROVIDER ORDERS Objective Vital Signs/Intake & Output Reviewed Vital Signs: Yes Vital Signs: Vital Signs x48h Temp Pulse Pulse Resp BP Pulse Ox O2 Flow Rate 07/13/25 08:00 37.4 C 90 29 H 172/91 H 96 2 07/13/25 07:53 74 22 2 07/13/25 07:00 90 24 153/89 H 97 2 07/13/25 06:00 89 30 H 177/83 H 93 2 07/13/25 05:00 93 28 H 154/94 H 91 L 2 07/13/25 04:00 84 19 155/72 H 99 2 07/13/25 03:00 91 25 H 128/67 93 2 07/13/25 02:00 89 26 H 148/74 H 94 2 07/13/25 01:30 92 2 07/13/25 01:00 88 22 127/69 92 2 Intake & Output: Intake & Output 07/10/25 07/11/25 07/12/25 07/13/25 23:59 23:59 23:59 23:59 Intake Total 1000 / 1000 2344 / 2344 2750 / 2750 1121 / 1121 Output Total 200 / 200 895 / 895 591 / 591 375 / 375 Balance 800 / 800 1449 / 1449 2159 / 2159 746 / 746 Weight (kg) 33.5 kg 35 kg 35 kg 40 kg Objective General Appearance: positive Alert and Mild distress Eyes Bilateral: positive Normal inspection Neck: positive Nml inspection Respiratory: positive Chest non-tender and Breath sounds nml; negative No respiratory distress Cardiovascular: positive Regular rate & rhythm, No murmur and No gallop; negative Tachycardia Abdomen: positive Non-tender, Nml bowel sounds and No distention Skin: positive Color nml, Warm and Dry Extremities: positive Non-tender and No pedal edema Neurologic/Psychiatric: positive Oriented x3; negative Mood/affect nml (Flat affect) Lab Results 07/13/25 05:08 07/13/25 05:08 Other Labs: Lab Results x24hrs 07/13/25 Range/Units 05:08 WBC 9.5 (4.8-10.8) x10^3/uL RBC 3.93 L (4.20-5.40) 10^6/uL Hgb 11.3 L (12.0-16.0) g/dL Hct 36.1 L (37.0-47.0) % MCV 91.9 (81.0-99.0) fL MCH 28.8 (27.0-31.0) pg MCHC 31.3 L (32.0-36.0) g/dL RDW 13.8 (12.0-15.0) % Plt Count 287 (130-450) 10^3/uL MPV 10.1 (7.9-10.8) fL VBG pH 7.440 H (7.31-7.41) VBG pCO2 50.3 (41-51) mmHg VBG pO2 57.3 H (25-47) mmHg VBG HCO3 32.6 H (23-28) mmol/L VBG Total CO2 34.1 H (24-29) mmol/L VBG O2 Saturation 90.0 H (60-80) % VBG Base Excess 7.8 H (-2 - +2) mmol/L Ionized Calcium 1.15 (1.09-1.30) mmol/L Sodium 142 (135-145) mmol/L Potassium 3.5 (3.5-4.5) mmol/L Chloride 107 (101-111) mmol/L Carbon Dioxide 32 (21-32) mmol/L Anion Gap 3.0 L (6-13) BUN 21 H (6-20) mg/dL Creatinine 0.5 L (0.6-1.3) mg/dL Estimated GFR (MDRD) 123 (>89) Glucose 99 (74-104) mg/dL Calcium 8.4 L (8.5-10.3) mg/dL Phosphorus 2.5 (2.5-5.0) mg/dL Magnesium 1.7 (1.7-2.3) mg/dL Diagnostic Imaging Diagnostic Imaging Results: positive Final report reviewed and Read independently Assessment/Plan Problem List (1) Acute and chronic respiratory failure: Qualifiers: Respiratory failure complication: hypoxia and hypercapnia Qualified Code(s): J96.21 - Acute and chronic respiratory failure with hypoxia; J96.22 - Acute and chronic respiratory failure with hypercapnia (2) COPD (chronic obstructive pulmonary disease): Impression: The following plan is for the above two assessments: Patient likely has end- stage COPD. She is chronically on 3 to 4 L of oxygen at home. She had an extended stay at her last visit, and was set up with a BiPAP at home. She has not been using the BiPAP because she gets claustrophobic with it. As a result, she has had increased work of breathing. She denies any cough, fevers or chills. She has noted some wheezing at home as well. Patient likely has end-stage COPD. Goals of care discussion was repeated during this visit, as it was during her last visit, and she remains full code. She is okay with the ventilator if it is a short-term attempt. Palliative care has been consulted, appreciate recommendations. Will continue to have conversation to this point during her course of stay. Continue scheduled DuoNebs. She remains on high flow, and has been started on BiPAP but is still very resistant to sustained BiPAP use. brought her home BiPAP setup. Continue serial vBGs. -Pt SPO2 remains stable today, alternating between 3LPM via NC and her home BiPAP setup, but remains tachypneic. -Per nursing staff, pt has been resistant to BiPAP use again today, and has been refusing to use it despite much improved clinical course yesterday. Will continue to work on this. -Pt is seeing palliative provider today, will appreciate their input as to evolving GOC. Qualifiers: COPD type: emphysema Emphysema type: unspecified Qualified Code(s): J 43.9 - Emphysema, unspecified (3) Metabolic alkalosis with respiratory acidosis: Impression: The following plan is for the above two assessments: Patient's has a primary metabolic alkalosis with compensation with respiratory acidosis. She continues to have diarrhea at home, although she states it is much improved from when she was discharged. She completed her vancomycin course for her C. difficile colitis, repeat GI sample resulted yesterday which continued to show C. diff negativity. We will maintain monitoring for continuous loose stools and degree of fluid and electrolyte loss. Remainder of stool studies also negative. Continue gentle IV fluid rehydration, up to 100mL/hr from 75mL/hr. Encourage p.o. intake and oral rehydration as well. Monitor for continued metabolic alkalosis and revisit potassium or other electrolytic repletion if needed; potassium dipped down slighty to 3.5 today. Will continue to monitor this. BUN/Cr have been fairly stable, 21/0.5 today from 29/0.7 yesterday, and GFR is improved to 123 from 83 yesterday. Calcium is slightly lower today at 8.4 VBG from today shows pH 7.4, PCO2 50.3. (4) Protein calorie malnutrition: Impression: Patient meets criteria for severe protein calorie malnutrition. Her states that she does not eat much at home. He is had to take her to the hospital before for poor appetite, but has been observed to be eating meals over the last 2 days. Patient is now 33.3 kg (was 39 kg). Her BMI is 13.1. She is markedly reduced in her functional capacity due to her pulmonary function. Continue on Remeron 15 mg nightly, suspect this may have multiple benefits for the patient. Dietitian following, appreciate their recommendations Qualifiers: Protein-calorie malnutrition severity: severe Qualified Code(s): E43 - Unspecified severe protein-calorie malnutrition (5) CAD (coronary artery disease): Impression: No recent outside records have been noted. Patient does state that she has CAD and had a stent placed in the last few years. Will continue her home medications which include atorvastatin, Plavix. Continue Coreg. She was hypotensive at last visit and amlodipine and lisinopril were discontinued on discharge. Lisinopril was restarted, but patient became hypotensive again; stopped. ECHO ordered and per radiology: LVEF 60-65% w/ preserved function, unk filling pressure. RV normal size, slightly inhibited RV function. Trace mitral, tricuspid, and pulmonic regurg; no aortic dysfn appreciated. Atria appear normal. Pulmonary artery pressure moderately incresed but normal RA pressures. Qualifiers: Associated angina: without angina Coronary Disease-Associated Artery/Lesion type: unspecified vessel or lesion type [place] vs. transplanted heart: [place] heart Qualified Code(s): I25.10 - Atherosclerotic heart disease of [place] coronary artery without angina pectoris (6) Urine retention: Impression: Pt with Parmar in place. Urine production of 445 today. We are continuing to encourage oral fluid intake and continuing crystalloids at 100ml/hr. Will continue to assess for urinary complaints or changes.
[2025-07-13] MEDS ORDERED: methylPREDNISolone SUCCINATE 40 MG/ML VIAL IVP SCH (09:00)
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
[2025-07-14 04:59] LABS: HCT - HEMATOCRIT 33.6 % (37.0-47.0); HGB - HEMOGLOBIN 10.4 g/dL (12.0-16.0); MEAN PLATELET VOLUME 10.3 fL (7.9-10.8); PLT - PLATELET COUNT 253.0 10^3/uL (130-450); RED CELL DISTRIBUTION WIDTH 14.0 % (12.0-15.0)
[2025-07-14 05:25] LABS: BUN - BLOOD UREA NITROGEN 11.0 mg/dL (6-20); CARBON DIOXIDE - CO2 32.0 mmol/L (21-32); CREATININE 0.4 mg/dL (0.6-1.3); GFR - MDRD 159.0 (>89)
[2025-07-14 06:07] LABS: VBG BASE EXCESS 8.9 mmol/L (-2 - +2); VBG PCO2 55.8 mmHg (41-51); VBG PH 7.390 (7.31-7.41); VBG PO2 56.5 mmHg (25-47); VBG TOTAL CO2 35.8 mmol/L (24-29)
--- NOTE | 2025-07-14 07:38 | Discharge Summary ---
"Discharge Summary Admit Date: 07/10/25 Discharge Date: 07/14/25 Discharging Provider: Dr. Rochelle Wan Primary Care Provider: Silverio Lucero Code Status: Attempt Resuscitation Discharge Facility Name: [facility] DIAGNOSES Admission Diagnoses: Acute hypoxic respiratory failure, COPD exacerbation, diarrhea, protein/calorie malnutrition, urinary retention Discharge Diagnoses with Status of Each Condition: Acute hypoxic respiratory failure/ COPD exacerbation Pt had been noncompliant with home BiPAP, only 3-4LPM on NC, and presented with cough, increased weakness, WOB, tachypnea, CO2 retention, respiratory acidosis, and lowered SPO2. Pt condition has improved greatly with treatment and now exhibits stable vitals, good oxygenation, return to likely baseline slight hypercapnia, and a greater apparent willingness to adhere to BiPAP at home. Diarrhea Pt had completed an ABX course following a C. diff infection, and had seemingly lost a meaningful amount of fluid during that illness course, as evidenced by dehydration and metabolic alkalosis. Pt has responded well to directed treaments and reports solid stools and has demonstrated stabilized pH and improved volume status. Protein/calorie malnutrition Pt has been working with billet driller during stay, and is improving in oral intake. Urinary retention Pt had initially demonstrated urinary retention and PVR >100mL, improved with Parmar catheter and monitored during stay, and has had x2 voids today of volume appropriate for oral intake. HPI History of Present Illness: Patient is a 70-year-old female with a history of COPD on 3 to 4 L of oxygen at home who presented due to increased work of breathing. She states that this is steadily been increasing at home for the past few weeks. She has some mild chills, but no cough, sputum production. She has been feeling weaker and weaker at home. After her last hospital stay, she was able to receive a BiPAP at home, but has not been using it as it makes her very anxious. She has been using her 3 to 4 L of oxygen at home, but has been increasingly tachypneic. She has not been able to see any specialists including palliative care, pulmonology, etc. in the outpatient setting since her last visit. She also states that she has not been eating. She is still having loose stools, once a day. She states it is much improved from the last time she was here. She states that she completed treatment for C. difficile colitis. We discussed her overall goals of care, and she still would like to be full code. She is okay with trying the ventilator for short period of time. Her is her DPOA. Patient was recently admitted here from 06/12-06/23. Initially for abdominal discomfort. She was found to be retaining urine, and a Parmar catheter was placed. She then became lethargic, and altered. She was found to be retaining CO2. This improved dramatically with noninvasive ventilation, BiPAP use. She was treated initially for COPD exacerbation with a steroid burst and azithromycin. This resolved. Her chest x-ray has been normal. She continued to have some increased work of breathing during her last few days here. She was continued on BiPAP as needed. Attempts were made to set her up with an noninvasive ventilation source in the outpatient, something like a trilogy device. However, this was not accomplished. Over the last 24 to 48 hours, she has only required intermittent BiPAP use. During the course of her stay here, she had diarrhea, and tested positive for C. difficile. She has completed a course of oral vancomycin. Additionally, palliative care was consulted to establish a relationship. She will continue to follow-up with them in the outpatient setting. Home health care was also set up for her. She is being discharged home in stable condition. In terms of medical history, patient states that she may have kidney cancer, although she cannot elaborate further on this. She states that she is going for a scan in the next few weeks to determine this. She also has a long history of COPD, and requires 3 to 4 L of oxygen at home. Besides this, she has CAD with a stent in place, currently on Plavix. She also has hypertension and hyperlipidemia. Medications include Plavix, lisinopril, inhalers, amlodipine. She has allergies to sulfa antibiotics, which give her a rash. She has had multiple surgeries including a cholecystectomy. She denies any recreational drug use or alcohol use. She was a former smoker, but quit over 15 years ago. She lives with her who helps with her ADLs. CONSULTS | PROCEDURES Consultations: Radiology Procedures: Chest x-ray - 07/10 - no acute cardiopulmonary process. HOSPITAL COURSE Hospital Course: Pt presented with acute hypoxic respiratory failure in the setting of post- diarrheal metabolic acidosis and respiratory acidosis. Pt had been noncompliant with home BiPAP, only 3-4LPM on NC, and presented with cough, increased weakness, WOB, tachypnea, CO2 retention, respiratory acidosis, and lowered SPO2. Pt has been treated with oxygen therapy, DuoNeb tx ongoing, steroid burst, Azithromycin, BiPAP with coaching and RT oversight, nasal cannula. Pt was monitored with constant SPO2 and ETCO@, with serial ABG and VBG during the acute period. Pt has shown ideal improvement to these treatments, and is now willing and stable to discharge to home with instructions for outpt follow-ups and home management of BiPAP and oxygen therapy. Pt diarrheal illness was managed further with fluid resuscitation, and stools have improved in solidity and metabolic disturbances are normalized. Pt urinary retention was managed with Parmar insertion and urine monitoring during her stay, and pt is now voiding adequately based on fluid intake. Locomotive Pipe Fitter consult was obtained and pt nutrition was managed appropriately, with improvement in appetite and calorie/protein intake. All home meds were managed or retained appropriately, and will follow previous home medication dosages and schedule on discharge. Physical therapy was also consulted, and based on their recommendations, meets mobility requirements for discharge to home. Palliative care was consulted, and she has a follow up appointment with them on Sunday. ALLERGIES Allergies Allergy/AdvReac Type Severity Reaction Status Date / Time codeine Allergy Unknown Verified 06/29/25 12:02 morphine Allergy Unknown Verified 06/29/25 12:02 Sulfa (Sulfonamide Allergy Unknown Verified 06/29/25 12:02 Antibiotics) MEDICATIONS Ambulatory Orders Medication Instructions Recorded Confirmed albuterol sulfate 90 mcg/actuation 2 puff inhalation Q 4H PRN 12/05/18 07/10/25 aerosol inhaler shortness of breath or wheez ing lorazepam 0.5 mg tablet 0.5 mg PO TID PRN Anxiety 07/10/25 atorvastatin 20 mg tablet 40 mg (2 x 20 mg) PO QPM 30 days 09/27/23 07/10/25 #60 tabs clopidogrel 75 mg tablet (Plavix) 75 mg PO DAILY #30 t abs 09/27/23 07/10/25 pantoprazole 20 mg tablet,delayed 40 mg (2 x 20 mg) PO DAILY #30 caps 09/27/23 07/11/25 release (Protonix) ipratropium 0.5 mg-albuterol 3 mg 3 ml inhalation Q4H PRN shortness 04/28/25 07/11/25 (2.5 mg base)/3 mL nebulization of breath or wheezing soln budesonide 0.25 mg/2 mL suspension 0.25 mg inhalation BID 06/12/25 07/10/25 for nebulization fluticasone propionate 50 1 spray intranasal DAILY 02/2707/11/25 mcg/actuation nasal spray,suspension ipratropium bromide 21 mcg (0.03 2 spray intranasal TI D PRN 06/12/25 07/10/25 %) nasal spray ALLERGIC RHINITIS nitroglycerin 0.4 mg sublingual 0.4 mg sublingual Q5M PRN chest 06/12/25 07/10/25 tablet pain oxycodone 10 mg tablet 10 mg PO Q4H PRN pain 07/10/25 tiotropium bromide 2.5 2 puff inhalation DAILY 02/2707/11/25 mcg/actuation mist for inhalation (Spiriva Respimat) carvedilol 3.125 mg tablet 6.25 mg (2 x 3.125 mg) PO B ID #[id number] 06/23/25 07/10/25 tabs magnesium oxide 400 mg (241.3 mg 800 mg (2 x 400 mg (2 41.3 mg 06/23/25 07/11/25 magnesium) tablet magnesium)) PO DAILYWM #30 t abs mirtazapine 15 mg tablet 15 mg PO QPM #30 tabs 07/10/25 PHYSICAL EXAM AT DISCHARGE Vital Signs: Vital Signs x48h Temp Pulse Pulse Resp BP BP Pulse Ox 07/14/25 14:40 07/14/25 14:21 07/14/25 11:46 97.7 F 91 27 H 163/87 H 98 07/14/25 11:32 86 24 07/14/25 10:26 07/14/25 08:05 98.4 F 74 18 139/77 H 97 07/14/25 07:25 88 22 07/14/25 07:15 O2 Flow Rate 07/14/25 14:40 1 07/14/25 14:21 1 07/14/25 11:46 1 07/14/25 11:32 1 07/14/25 10:26 1 07/14/25 08:05 2 07/14/25 07:25 2 07/14/25 07:15 2 General Appearance: positive No acute distress and Alert Eyes Bilateral: positive Normal inspection Neck: positive Nml inspection Respiratory: positive Breath sounds nml Cardiovascular: positive Regular rate & rhythm Peripheral Pulses: positive 2+ Abdomen: positive Non-tender, Nml bowel sounds and No distention Skin: positive Color nml, Warm and Dry Extremities: positive Non-tender Neurologic/Psychiatric: positive Oriented x3 LABS 07/14/25 04:42 07/14/25 04:42 DIAGNOSTIC IMAGING Diagnostic Imaging Results: Final report reviewed and Read independently FOLLOW UP Follow Up: Follow up with PCP for any home medication modification, pulmonology for any changes to COPD management, oncology for possible f/u imaging for RCC. Follow up with Palliative Care (appointment made on Sunday). TIME SPENT Time Spent in Discharge (Minutes): Discharge Plan Discharge Patient Disposition: Home Health Service Prescriptions: Continued albuterol sulfate 8.5 GM HFA aerosol inhaler 2 puff inhalation Q4H PRN (Reason: shortness of breath or wheezing) lorazepam 0.5 MG tablet 0.5 mg PO TID PRN (Reason: Anxiety) atorvastatin 20 MG tablet 40 mg PO QPM 30 Days Qty: 60 0RF clopidogrel [Plavix] 75 MG tablet 75 mg PO DAILY Qty: 30 0RF pantoprazole [Protonix] 20 MG tablet,delayed release (DR/EC) 40 mg PO DAILY Qty: 30 0RF ipratropium-albuterol 0.5 mg-3 mg(2.5 mg base)/3 mL solution for nebulization 3 ml INHALATION Q4H PRN (Reason: shortness of breath or wheezing) budesonide 0.25 mg/2 mL suspension for nebulization 0.25 mg inhalation BID fluticasone propionate 50 mcg/actuation spray,suspension 1 spray INTRANASAL DAILY ipratropium bromide 21 mcg (0.03 %) spray,non-aerosol 2 spray INTRANASAL TID PRN (Reason: ALLERGIC RHINITIS) Patient Comments: USE 2 SPRAYS IN EACH NOSTRIL 2 TO 3 TIMES DAILY. nitroglycerin 0.4 mg tablet, sublingual 0.4 mg sublingual Q5M PRN (Reason: chest pain) Spiriva Respimat 2.5 mcg/actuation mist 2 puff INHALATION DAILY oxycodone 10 mg tablet 10 mg PO Q4H PRN (Reason: pain) Rx Instructions: NOT TO EXCEED 6 PER DAY carvedilol 3.125 mg Tablet 6.25 mg PO BID Qty: 60 0RF magnesium oxide 400 mg (241.3 mg magnesium) Tablet 800 mg PO DAILYWM Qty: 30 0RF mirtazapine 15 mg Tablet 15 mg PO QPM Qty: 30 0RF Activity Restrictions: Activity as Tolerated Diet: Regular Health Concerns: You were admitted to the hospital because of a flare-up (exacerbation) of your chronic obstructive pulmonary disease (COPD). During this hospitalization, you required breathing support with a machine called bilevel positive airway pressure (BPAP). Your blood tests showed that carbon dioxide (CO2) levels in your blood remained elevated even after treatment, which means your lungs need extra help removing this gas from your body. Your doctor is prescribing a BPAP machine for you to use at home, primarily while you sleep. This machine helps your breathing by: - Pushing air into your lungs to help them work more efficiently - Reducing the buildup of carbon dioxide in your blood - Giving your breathing muscles a rest while you sleep - Reducing your risk of being readmitted to the hospital Studies show that patients with COPD who have elevated carbon dioxide levels and use BPAP at home have better survival rates and fewer hospital readmissions compared to those who do not use this therapy. - Use your BPAP every night while sleeping. The machine works best when used consistently for the entire night. - Your respiratory therapist or home equipment company will teach you how to put on the mask, turn on the machine, and adjust the settings. - The mask may feel uncomfortable at first. This is normal and usually improves within a few weeks. - Your machine has been programmed with specific pressure settings and a backup breathing rate to ensure you get adequate ventilation. Common Side Effects and Solutions - Skin irritation or pressure [place] from the mask: Try adjusting the mask straps (not too tight), use mask liners, or ask about different mask styles. - Dry mouth or nose: Your machine may have a humidifier that can help. Make sure it is turned on and filled with distilled water. - Feeling bloated: This usually improves as you get used to the machine. - Difficulty falling sleep: Give yourself time to adjust. Most people adapt within 2-4 weeks. If side effects persist or worsen, contact your doctor or equipment provider. Continue taking all your COPD medications exactly as prescribed, including: - Inhalers (bronchodilators and steroids) - Oral medications - Oxygen therapy (if prescribed) Make sure you know how to use your inhalers correctly. Ask your doctor, nurse, or pharmacist to watch you use them to ensure proper technique. You will need close follow-up to make sure the BPAP is working properly: - Schedule an appointment with your lung doctor within 2-4 weeks of leaving the hospital. - Your doctor will check your blood carbon dioxide levels with a blood test to see if the BPAP is helping. - Your equipment provider will monitor how often you use the machine and whether it is working correctly. - You may need adjustments to your machine settings over time. Call your doctor or go to the emergency room if you experience: - Increased shortness of breath that does not improve with your usual treatments - Confusion or excessive sleepiness - Chest pain - Coughing up blood - Fever over 100.4F (38C) - Swelling in your legs or ankles that is new or worsening - Inability to use your BPAP machine due to equipment problems - Do not smoke. Smoking makes COPD worse and reduces the benefits of all treatments. Ask your doctor about smoking cessation programs if you need help quitting. - Stay up to date with vaccinations, including annual flu shots and pneumonia vaccines. - Pulmonary rehabilitation may be recommended to help improve your breathing, strength, and quality of life. - Manage other health conditions such as heart disease, diabetes, or depression, as these can affect your COPD. Equipment and Supplies - Clean your BPAP mask and tubing regularly according to the manager of [employer]mo's instructions (usually daily washing with mild soap and water). - Replace filters, masks, and tubing as recommended by your equipment provider. - Keep the equipment company's phone number handy in case of machine problems. If you have questions about your BPAP machine, medications, or COPD care, contact your doctor's office. Your respiratory therapist and home equipment company are also valuable resources for questions about your breathing machine. I am glad that you have follow-up scheduled already with palliative care, and I understand that you are going to be seeing them on Sunday. I am glad you are feeling better. Thank you for allowing us to take care of you. Print Language: Belarusian Patient Instructions: COPD: Coping with Mucus, COPD: Coping with Fatigue Stand Alone Forms: PCP List Follow-up Care: Silverio Lucero PA [Primary Care Provider, Classified Advertising Supervisor] Vitals documented within 30 minutes of discharge?: Yes"
--- NOTE | 2025-07-14 10:07 | PROVIDER PROGRESS NOTE ---
Subjective Prog Note Date Prog Note Date: 07/14/25 Prog Note Time: 10:08 Subjective Pt reports feeling: Improved Subjective: Pt reports is overall feeling better, but relates she had some dyspnea last night/spoke maker and that RT came and gave her a breathing tx. Pt relates she is amenable to BiPAP, and has been allowing intermittent BiPAP use. Current Medications Current Medications Current Medications: Current Medications Generic Name Dose Route Start Last Admin Trade Name Freq PRN Reason Stop Dose Admin Acetaminophen 650 mg 07/10/25 17:34 Acetaminophen 325 Mg Tablet PO Q4HR PRN Pain or Fever > 38C (100.4F) Albuterol/Ipratropium 3 ml 07/10/25 17:00 07/14/25 07:24 Ipratropium/Albuterol 3 Ml Neb INH 3 ml Q4HR ABRAHAM Administration Atorvastatin Calcium 40 mg 07/10/25 21:00 07/13/25 21:10 Atorvastatin 40 Mg Tablet PO 40 mg QPM ABRAHAM Administration Carvedilol 6.25 mg 07/10/25 21:00 07/14/25 08:46 Carvedilol 3.125 Mg Tablet PO 6.25 mg BID ABRAHAM Administration Clopidogrel Bisulfate 75 mg 07/11/25 09:00 07/14/25 08:46 Clopidogrel 75 Mg Tablet PO 75 mg DAILY ABRAHAM Administration Enoxaparin Sodium 30 mg 07/11/25 09:00 07/14/25 08:46 Enoxaparin 30 Mg/0.3 Ml Syringe SUBQ 30 mg DAILY ABRAHAM Administration Famotidine 20 mg 07/10/25 21:00 07/14/25 08:46 Famotidine 20 Mg Tablet PO 20 mg BID ABRAHAM Administration Sodium Chloride 1,000 mls @ 100 mls/hr 07/10/25 18:00 07/14/25 00:16 Normal Saline 0.9% IV 100 mls/hr .Q10H ABRAHAM Administration Lorazepam 0.5 mg 07/10/25 17:07 07/13/25 11:20 Lorazepam 0.5 Mg Tablet PO 0.5 mg TID PRN Administration Anxiety Mirtazapine 15 mg 07/10/25 21:00 07/13/25 21:10 Mirtazapine 15 Mg Tablet PO 15 mg QPM ABRAHAM Administration Ondansetron HCl 4 mg 07/11/25 09:04 Ondansetron Odt 4 Mg Tablet TL Q4HR PRN Nausea / Vomiting Ondansetron HCl 4 mg 07/11/25 09:04 07/11/25 10:27 Ondansetron 4 Mg/2 Ml Vial IVP 4 mg Q4HR PRN Administration Nausea / Vomiting Oxycodone HCl 5 mg 07/10/25 17:34 07/14/25 06:32 Oxycodone 5 Mg Tablet PO 5 mg Q4HR PRN Administration Moderate Pain (Level 4-6) Sodium Chloride 10 ml 07/10/25 17:00 07/14/25 08:46 Sodium Chloride Flush 0.9% 10 Ml Syringe IVP 10 ml 0100,0900,1700 ABRAHAM Administration Sodium Chloride 10 ml 07/10/25 16:34 Sodium Chloride Flush 0.9% 10 Ml Syringe IVP PRN PRN NEEDED PER PROVIDER ORDERS Objective Vital Signs/Intake & Output Reviewed Vital Signs: Yes Vital Signs: Vital Signs x48h Temp Pulse Pulse Resp BP Pulse Ox O2 Flow Rate 07/14/25 08:05 36.9 C 74 18 139/77 H 97 2 07/14/25 07:25 88 22 2 07/14/25 06:00 36.8 C 92 20 170/93 H 93 07/14/25 03:00 83 25 H 126/71 99 2 Intake & Output: Intake & Output 07/11/25 07/12/25 07/13/25 07/14/25 23:59 23:59 23:59 23:59 Intake Total 2344 / 2344 2750 / 2750 2579 / 2579 1240 / 1240 Output Total 895 / 895 591 / 591 695 / 695 850 / 850 Balance 1449 / 1449 2159 / 2159 1884 / 1884 390 / 390 Weight (kg) 35 kg 35 kg 40 kg 39.5 kg Objective General Appearance: positive No acute distress and Alert Eyes Bilateral: positive Normal inspection Neck: positive Nml inspection Respiratory: positive Chest non-tender, No respiratory distress and Breath sounds nml Cardiovascular: positive Regular rate & rhythm Abdomen: positive Non-tender and Nml bowel sounds Skin: positive Color nml, Warm and Dry Extremities: positive Non-tender Neurologic/Psychiatric: positive Oriented x3 Lab Results 07/14/25 04:42 07/14/25 04:42 Other Labs: Lab Results x24hrs 07/14/25 07/14/25 Range/Units 05:57 04:42 WBC 8.2 (4.8-10.8) x10^3/uL RBC 3.61 L (4.20-5.40) 10^6/uL Hgb 10.4 L (12.0-16.0) g/dL Hct 33.6 L (37.0-47.0) % MCV 93.1 (81.0-99.0) fL MCH 28.8 (27.0-31.0) pg MCHC 31.0 L (32.0-36.0) g/dL RDW 14.0 (12.0-15.0) % Plt Count 253 (130-450) 10^3/uL MPV 10.3 (7.9-10.8) fL VBG pH 7.390 (7.31-7.41) VBG pCO2 55.8 H (41-51) mmHg VBG pO2 56.5 H (25-47) mmHg VBG HCO3 34.1 H (23-28) mmol/L VBG Total CO2 35.8 H (24-29) mmol/L VBG O2 Saturation 86.0 H (60-80) % VBG Base Excess 8.9 H (-2 - +2) mmol/L Sodium 143 (135-145) mmol/L Potassium 3.8 (3.5-4.5) mmol/L Chloride 110 (101-111) mmol/L Carbon Dioxide 32 (21-32) mmol/L Anion Gap 1.0 L (6-13) BUN 11 (6-20) mg/dL Creatinine 0.4 L (0.6-1.3) mg/dL Estimated GFR (MDRD) 159 (>89) Glucose 100 (74-104) mg/dL Calcium 7.7 L (8.5-10.3) mg/dL Diagnostic Imaging Diagnostic Imaging Results: positive Final report reviewed and Read independently Assessment/Plan Problem List (1) Counseling regarding advanced care planning and goals of care: Impression: GOC conversation has been had continuously throughout this pt stay and the previous stay. Palliative care met with pt yesterday, will appreciate their input at today's team meeting. (2) Anxiety: Impression: PT has experienced consistent anxiety surrounding BiPAP use and ahs required various degrees of anxiolysis during the initial part of her stay. With coaching and continued intermittent use, pt may be able to use this more at home. Will reconsider if continued anxiolysis is indicated. (3) Protein calorie malnutrition: Impression: Patient meets criteria for severe protein calorie malnutrition. Her states that she does not eat much at home. He is had to take her to the hospital before for poor appetite, but has been observed to be eating meals over the last 2 days. Patient is now 33.3 kg (was 39 kg). Her BMI is 13.1. She is markedly reduced in her functional capacity due to her pulmonary function. Continue on Remeron 15 mg nightly, suspect this may have multiple benefits for the patient. Dietitian following, appreciate their recommendations Qualifiers: Protein-calorie malnutrition severity: severe Qualified Code(s): E43 - Unspecified severe protein-calorie malnutrition (4) Acute and chronic respiratory failure: Qualifiers: Respiratory failure complication: hypoxia and hypercapnia Qualified Code(s): J96.21 - Acute and chronic respiratory failure with hypoxia; J96.22 - Acute and chronic respiratory failure with hypercapnia (5) COPD with acute exacerbation: Impression: The following plan is for the above two assessments: Patient likely has end- stage COPD. She is chronically on 3 to 4 L of oxygen at home. She had an extended stay at her last visit, and was set up with a BiPAP at home. She has not been using the BiPAP because she gets claustrophobic with it. As a result, she has had increased work of breathing. She denies any cough, fevers or chills. She has noted some wheezing at home as well. Patient likely has end-stage COPD. Goals of care discussion was repeated during this visit, as it was during her last visit, and she remains full code. She is okay with the ventilator if it is a short-term attempt. Palliative care has been consulted, appreciate recommendations. Will continue to have conversation to this point during her course of stay. Continue scheduled DuoNebs. She remains on high flow, and has been started on BiPAP but is still very resistant to sustained BiPAP use. brought her home BiPAP setup. Continue serial vBGs. -Pt SPO2 remains stable today, alternating between 3LPM via NC and her home BiPAP setup, but remains tachypneic. -Per nursing staff, pt has been slightly more amenable to BiPAP than yesterday. Will continue to work on this. -Pt is seeing palliative provider today, will appreciate their input as to evolving GOC. (6) Renal cancer: Impression: Per Palliative care yesterday, pt relates she had a history of RCC and an ablation procedure that was purported to be curative, but needs follow-up imaging. This can likely be done outpt, but will confirm today. Qualifiers: Laterality: left Qualified Code(s): C64.2 - Malignant neoplasm of left kidney, except renal pelvis
[2025-07-14 15:31] VITALS: BP 169/97; TEMP 98.1; O2SAT 96
== END 2025-07-14 15:30 | disposition home health service (06) | DRG 189 ==
LOC: ED 12:27 → ICU 14:57 → MS3 07-14 11:55 → ICU 07-14 12:56
PROVIDERS: ADMIT Internal Medicine; ATTEND Internal Medicine